=== PATIENT | female | born 1935 | race Hispanic/Latino ===

== ENCOUNTER 2016-10-29 14:13 | Inpatient (IN) | payer MEDICARE ==
[2016-10-29] MEDS ORDERED: Sodium Chloride 0.9% 1,000 ML IV STA ×3 (14:39→19:52)
[2016-10-29 15:19] LABS: ADD MANUAL DIFF? NO
[2016-10-29 15:23] LABS: BASO # 0.01 K/mm3 (0.0-2.0); BASO % 0.1 % (0.0-3.0); EOS # 0.1 (0.0-0.7); EOS % 0.4 % (1.5-5.0); GRAN # 9.36 (1.4-6.5); GRAN % 69.8 % (50.0-68.0); HEMATOCRIT 35.6 % (36.0-48.0); LYMPH % 22.5 % (22.0-35.0); MEAN CELL VOLUME 93.2 fL (80.0-105.0); MEAN CORPUSCULAR HEMOGLOBIN 30.4 pg (25.0-35.0); MEAN CORPUSCULAR HGB CONC 32.6 g/dl (31.0-37.0); MEAN PLATELET VOLUME 9.8 fl (7.0-11.0); MONO % 7.2 % (1.0-6.0); PLATELET COUNT 272 10^3/uL (120.0-450.0); RED CELL DISTRIBUTION WIDTH 13.8 % (11.5-14.5); WHITE BLOOD COUNT 13.4 10^3/ul (4.5-11.0)
--- NOTE | 2016-10-29 15:30 | RAD ---
HISTORY: Sepsis Patient COMPARISON: No prior. FINDINGS: LUNGS: Study somewhat limited- patient's body is rotated towards the right in the chin is obscuring the right lung apex No gross intra parenchymal pathology noted. Probable prominent calcification of the right coastal cartilage junction PLEURA: No significant pleural effusion identified, no pneumothorax apparent. CARDIOVASCULAR: Normal. OSSEOUS STRUCTURES: Old healed left rib fractures. Generalized osteopenia. Thoraco lumbar spondylosis VISUALIZED UPPER ABDOMEN: Normal. OTHER FINDINGS: Postsurgical changes IMPRESSION: No active disease.
[2016-10-29 15:32] LABS: INR 1.06 (0.93-1.08); PARTIAL THROMBOPLASTIN TIME 25.8 Seconds (23.7-30.8)
--- NOTE | 2016-10-29 15:32 | CT ---
PROCEDURE: CT HEAD WITHOUT CONTRAST. HISTORY: multiple falls; unsteady gait COMPARISON: None available. TECHNIQUE: Axial computed tomography images were obtained through the head/brain without intravenous contrast. Radiation dose: Total exam DLP = 688 mGy-cm. This CT exam was performed using one or more of the following dose reduction techniques: Automated exposure control, adjustment of the mA and/or kV according to patient size, and/or use of iterative reconstruction technique. FINDINGS: HEMORRHAGE: No intracranial hemorrhage. BRAIN: No mass effect or edema. Mild cerebral atrophy or mild chronic appearing microvascular ischemic changes. VENTRICLES: Ventricular size commensurate with the degree of atrophy and age. CALVARIUM: Unremarkable. PARANASAL SINUSES: Unremarkable as visualized. No significant inflammatory changes. MASTOID AIR CELLS: Unremarkable as visualized. No inflammatory changes. OTHER FINDINGS: None. IMPRESSION: No intracranial hemorrhage or mass effect. No calvarial fracture. Atrophy changes as noted above
--- NOTE | 2016-10-29 15:35 | ED PDOC ---
Arrival/HPI - General Chief Complaint: Female Genitourinary Time Seen by Provider: 10/29/16 14:23 Historian: Patient, Spouse, Family (son) - History of Present Illness Narrative History of Present Illness (Text): 10/29/16 14:25 A 81 year old female, whose past medical history includes CHF, parkinson's disease, Breast cancer (in remission), rectovaginal fistula and Recto-Urethral Fistula, presents to the emergency department for evaluation of a urinary infection. Patient's son reports the patient has been urinating more frequently for the past 3 weeks. He states the patient was started on Levaquin for a UTI. Son and note the patient appear to be more weak and confused than usually. states for the past three days the patient has had difficulty walking and has had fell multiple times. He notes last week the patient fell and hit her head against the wall, but she did not loss consciousness. Son says the patient has a lot of mucous in the throat and has not been eating much. The patient says her appetite is fine and she does not feel like she is weak. She denies any fever, chills, abdominal pain, chest pain, shortness of breath, headache or any other complaints at this time. Son mentions the patient had a echocardiogram on 10/24/2016, performed by Dr. Peoples. PMD: Dr. Finn/Sam Time/Duration: > week Symptom Onset: Sudden Symptom Course: Unchanged Quality: Other Activities at Onset: Rest Context: Home Past Medical History - Provider Review Nursing Documentation Reviewed: Yes - Infectious Disease Hx of Infectious Diseases: None - Cardiac Hx Cardiac Disorders: Yes Hx Congestive Heart Failure: Yes - Pulmonary Hx Respiratory Disorders: No - Neurological Hx Neurological Disorder: Yes Hx Parkinson's Disease: Yes (dx in 2000) - HEENT Hx HEENT Disorder: No - Renal Hx Renal Disorder: No - Endocrine/Metabolic Hx Endocrine Disorders: No - Hematological/Oncological Hx Blood Disorders: No - Integumentary Hx Dermatological Disorder: No - Musculoskeletal/Rheumatological Hx Musculoskeletal Disorders: No - Gastrointestinal Hx Gastrointestinal Disorders: No - Genitourinary/Gynecological Hx Genitourinary Disorders: No - Psychiatric Hx Psychophysiologic Disorder: No Hx Substance Use: No - Surgical History Hx Hysterectomy: Yes Other/Comment: breat cancer in the past. - Anesthesia Hx Anesthesia: Yes Hx Anesthesia Reactions: No Family/Social History - Physician Review Nursing Documentation Reviewed: Yes Family/Social History: Unknown Family HX Smoking Status: Never Smoked Hx Alcohol Use: No Hx Substance Use: No Allergies/Home Meds Allergies/Adverse Reactions: Allergies No Known Allergies Allergy (Verified 10/29/16 14:26) Home Medications: Home Meds Medication Instructions Recorded Confirmed Aspirin [[place] Aspirin] 81 mg PO DAILY 10/29/16 10/29/16 Calcium Carbonate [Tums] 500 mg PO PRN PRN 10/29/16 10/29/16 Calcium Carbonate/Vitamin D 1 tab PO DAILY 10/29/16 10/29/16 [Oscal-D 250 mg-125 Units Tab] Carvedilol [Coreg] 12.5 mg PO BID 10/29/16 10/29/16 Clonazepam [Clonazepam] 4 mg PO DAILY 10/29/16 10/29/16 Digoxin [Lanoxin] 0.125 mg PO DAILY 10/29/16 10/29/16 Ezetimibe/Simvastatin [Vytorin 1 each PO DAILY 10/29/16 10/29/16 10-80 mg Tablet] Isosorbide Mononitrate [Isosorbide 30 mg PO DAILY 10/29/16 10/29/16 Mononitrate ER] LORazepam [Ativan] 0.5 mg PO BID 10/29/16 10/29/16 Lactose-Reduced Food [Boost] 237 ml PO DAILY 10/29/16 10/29/16 Losartan [Cozaar] 50 mg PO BID 10/29/16 10/29/16 Multivit-Min/FA/Lycopen/Lutein 1 each PO DAILY 10/29/16 10/29/16 [Centrum Silver Tablet] Rivastigmine [Exelon Cap] 4.5 mg PO BID 10/29/16 10/29/16 Ropinirole HCl [Requip] 8 mg PO DAILY 10/29/16 10/29/16 Selenium [Selenium] 50 mcg PO DAILY 10/29/16 10/29/16 Torsemide [Demadex] 20 mg PO DAILY 10/29/16 10/29/16 Vitamin E [Vitamin E 400 Units Cap] 400 intlu PO DAILY 10/29/16 10/29/16 Review of Systems - Physician Review All systems were reviewed & negative as marked: Yes - Review of Systems Constitutional: Other (appears weak). absent: Fevers ENT: Other (congestion in throat) Respiratory: absent: SOB Cardiovascular: absent: Chest Pain Gastrointestinal: absent: Abdominal Pain, Nausea, Vomiting Genitourinary Female: Frequency Neurological: absent: Headache Physical Exam Vital Signs Reviewed: Yes Vital Signs Temp Pulse Resp BP Pulse Ox 10/29/16 16:35 64 18 122/56 L 98 10/29/16 15:38 69 18 124/58 L 98 10/29/16 15:02 97.1 F L 10/29/16 14:20 97.8 F 74 18 126/54 L 98 Temperature: Afebrile Blood Pressure: Hypotensive Pulse: Regular Respiratory Rate: Normal Appearance: Positive for: Well-Appearing, Non-Toxic, Comfortable, Other ( patient has baseline tremors) Pain Distress: None Mental Status: Positive for: Alert and Oriented X 3 - Systems Exam Head: Present: Atraumatic, Normocephalic Pupils: Present: PERRL Extroacular Muscles: Present: EOMI Conjunctiva: Present: Normal Mouth: Present: Moist Mucous Membranes Neck: Present: Normal Range of Motion Respiratory/Chest: Present: Clear to Auscultation, Good Air Exchange. No: Respiratory Distress, Accessory Muscle Use Cardiovascular: Present: Regular Rate and Rhythm, Normal S1, S2. No: Murmurs Abdomen: Present: Normal Bowel Sounds. No: Tenderness, Distention, Peritoneal Signs Back: Present: Normal Inspection Upper Extremity: Present: Normal Inspection. No: Cyanosis, Edema Lower Extremity: Present: Normal Inspection. No: Edema Neurological: Present: GCS=15, CN II-XII Intact, Speech Normal Skin: Present: Warm, Dry, Normal Color. No: Rashes Psychiatric: Present: Alert, Oriented x 3, Normal Insight, Normal Concentration Medical Decision Making ED Course and Treatment: 10/29/16 14:25 Impression: A 81 year old female with urinary frequency, weakness and increase confusion. Differential Diagnosis include but are not limited to: UTI vs. worsening parkinson's vs intra cranialabnormalities vs. electrolyte abnormality vs ACS Plan: -- EKG -- Head CT -- Chest X-ray -- Labs -- Urinalysis -- IV Fluids -- Reassess and disposition Progress Notes: EKG: Ordered, reviewed, and independently interpreted the EKG. Rate : 70 BPM Rhythm : NSR Interpretation : first degree AV block, left axis deviation, left bundle branch block, no other ST/T changes Comparison : No previous EKG for comparison. 10/29/16 15:[address]: Creator : Faustina Barnett V. COMPARISON: None available. FINDINGS: HEMORRHAGE: No intracranial hemorrhage. BRAIN: No mass effect or edema. Mild cerebral atrophy or mild chronic appearing microvascular ischemic changes. VENTRICLES: Ventricular size commensurate with the degree of atrophy and age. CALVARIUM: Unremarkable. PARANASAL SINUSES: Unremarkable as visualized. No significant inflammatory changes. MASTOID AIR CELLS: Unremarkable as visualized. No inflammatory changes. OTHER FINDINGS: None. IMPRESSION: No intracranial hemorrhage or mass effect. No calvarial fracture. Atrophy changes as noted above Chest X-ray: Creator : Faustina Barnett V. COMPARISON: No prior. FINDINGS: LUNGS: Study somewhat limited- patient's body is rotated towards the right in the chin is obscuring the right lung apex No gross intra parenchymal pathology noted. Probable prominent calcification of the right coastal cartilage junction PLEURA: No significant pleural effusion identified, no pneumothorax apparent. CARDIOVASCULAR: Normal. OSSEOUS STRUCTURES: Old healed left rib fractures. Generalized osteopenia. Thoraco lumbar spondylosis VISUALIZED UPPER ABDOMEN: Normal. OTHER FINDINGS: Postsurgical changes IMPRESSION: No active disease. 10/29/16 18:31 Patient with noted history is hemodynamically stable with unremarkable vitals. EKG shows LBBB but no old - patient with no cardiopulmonary complaints and negative CE. Labs show severe prerenal azotemia; brain CT and CXR unremarkable - will need to be admitted for IVF; urine shows UTI but patient with fistula - started on iv abx. Case discussed with Dr. Vargas. - Lab Interpretations Lab Results: 10/29/16 15:00 10/29/16 15:00 Lab Results 10/29/16 17:00: Urine Color Green, Urine Appearance Cloudy, Urine pH 6.5, Ur Specific [place] 1.010, Urine Protein Negative, Urine Glucose (UA) Negative, Urine Ketones Negative, Urine Blood Large H, Urine Nitrate Negative, Urine Bilirubin Negative, Urine Urobilinogen 0.2, Ur Leukocyte Esterase Large H, Urine RBC 25 - 30, Urine WBC 10 - 15, Ur Epithelial Cells 0 - 2, Amorphous Sediment Many, Urine Bacteria Large, Coarse Granular Casts Agricultural Systems Specialist 10/29/16 15:00: WBC 13.4 H, RBC 3.82, Hgb 11.6 L, Hct 35.6 L, MCV 93.2, MCH 30.4 , MCHC 32.6, RDW 13.8, Plt Count 272, MPV 9.8, Gran % 69.8 H, Lymph % (Auto) 22.5, [place] % (Auto) 7.2 H, Eos % (Auto) 0.4 L, Baso % (Auto) 0.1, Gran # 9.36 H , Lymph # 3.0, [place] # 1.0 H, Eos # 0.1, Baso # 0.01, PT 11.5, INR 1.06, APTT 25.8, pO2 34, VBG pH 7.35, VBG pCO2 62.0 H, VBG HCO3 34.2 H, VBG Total CO2 36.1 H, VBG O2 Sat (Calc) 59.2, VBG Base Excess 6.8 H, VBG Potassium 4.6, Glucose 94 , Lactate 0.9, FiO2 21.0, Sodium 141.0, Potassium 4.5, Chloride 102.0, Carbon Dioxide 33, Anion Gap 17, BUN 123 H*, Creatinine 2.3 H, Est GFR ( Amer) 25, Est GFR (Non-Af Amer) 20, Random Glucose 97, Calcium 10.5, Phosphorus 4.6 H , Magnesium 2.7 H, Total Bilirubin 0.7, AST 50 H, ALT 44, Alkaline Phosphatase 59, Lactate Dehydrogenase 457, Total Creatine Kinase 56, Troponin I 0.04, NT-Pro -B Natriuret Pep 1040 H, Total Protein 8.4 H, Albumin 4.0, Globulin 4.4, Albumin /Globulin Ratio 0.9 L, Lipase 347 H, Venous Blood Potassium 4.6 I have reviewed the lab results: Yes - RAD Interpretation Radiology Orders: 10/29/16 14:35 CHEST PORTABLE [RAD] Stat 10/29/16 14:40 Brain [HEAD W/O CONTRAST] [CT] Stat - Medication Orders Current Medication Orders: Sodium Chloride (Sodium Chloride 0.9%) 1,000 mls @ 100 mls/hr IV .Q10H STA Stop: 10/30/16 00:38 Last Admin: 10/29/16 15:08 Dose: 100 MLS/HR eMAR Start Stop Document 10/29/16 15:08 EQ (Rec: 10/29/16 15:08 EQ [facility] [id number]) Intravenous Solution Start Date 10/29/16 Start Time 15:08 Sodium Chloride (Sodium Chloride 0.9%) 1,000 mls @ 999 mls/hr IV .Q1H1M STA Stop: 10/29/16 19:29 Ceftriaxone Sodium (Rocephin 1 Gram Ivpb) 100 mls @ 200 mls/hr IV ONCE STA PRN Reason: Protocol Stop: 10/29/16 18:58 - Scribe Statement The provider has reviewed the documentation as recorded by the Scribe Isabella Panchal Provider Scribe Attestation: All medical record entries made by the Scribe were at my direction and personally dictated by me. I have reviewed the chart and agree that the record accurately reflects my personal performance of the history, physical exam, medical decision making, and the department course for this patient. I have also personally directed, reviewed, and agree with the discharge instructions and disposition. . Disposition/Present on Arrival - Present on Arrival Any Indicators Present on Arrival: No History of DVT/PE: No History of Uncontrolled Diabetes: No Urinary Catheter: No History of Decub. Ulcer: No History Surgical Site Infection Following: None - Disposition Have Diagnosis and Disposition been Completed?: Yes Diagnosis: Prerenal azotemia, Altered mental status, Urinary tract infection Disposition: HOSPITALIZED Disposition Time: 17:05 Patient Plan: Admission Condition: FAIR
[2016-10-29 15:39] LABS: VENOUS BLOOD GAS BASE EXCESS 6.8 mmol/L (0.0-2.0); VENOUS BLOOD PH 7.35 (7.32-7.43)
[2016-10-29 15:44] LABS: ALB/GLOB RATIO 0.9 (1.1-1.8); BILIRUBIN,TOTAL 0.7 mg/dL (0.2-1.3); CALCIUM 10.5 mg/dL (8.4-10.5); MAGNESIUM 2.7 mg/dL (1.7-2.2); PHOSPHOROUS 4.6 mg/dL (2.5-4.5); POTASSIUM 4.5 mmol/L (3.6-5.0); TOTAL PROTEIN 8.4 g/dL (5.8-8.3)
[2016-10-29 15:56] LABS: TROPONIN I 0.04 ng/mL
[2016-10-29 17:58] LABS: PH,URINE 6.5 (4.7-8.0); URINE BILIRUBIN NEGATIVE (NEGATIVE); URINE BLOOD LARGE (NEGATIVE); URINE GLUCOSE (UA) NEGATIVE (NEGATIVE); URINE KETONE NEGATIVE (NEGATIVE); URINE LEUKOCYTE ESTERASE LARGE Leu/uL (NEGATIVE); URINE PROTEIN NEGATIVE mg/dL (<30 mg/dL); URINE UROBILINOGEN 0.2 E.U./dL (<1 E.U./dL)
[2016-10-29 17:59] LABS: URINE APPEARANCE CLOUDY (CLEAR); URINE COLOR GREEN (YELLOW)
[2016-10-29 18:28] LABS: URINE AMORPHOUS SEDIMENT MANY; URINE BACTERIA LARGE (NEG); URINE EPITHELIAL CELLS 0 - 2 /hpf (0-5); URINE RBC 25 - 30 /hpf (0-2)
[2016-10-29] MEDS ORDERED: cefTRIAXone 1 gm 100 ML IV STA (18:29)
[2016-10-29] MEDS ORDERED: Cefepime 1gm in NS 100ml 100 ML IVPB ONE (20:15)
[2016-10-29] MEDS ORDERED: Iohexol 240 (50 ml) ONE ×2 (20:26→21:03)
[2016-10-29 20:30] LABS: FREE T4 1.58 ng/dL (0.78-2.19); T4 8.7 ug/dL (5.5-11.0)
[2016-10-29 20:43] LABS: THYROID STIMULATING HORMONE 1.6 mIU/mL (0.46-4.68)
[2016-10-29] MEDS ORDERED: Cefepime 1gm in NS 100ml 100 ML IVPB SCH ×2 (22:00→23:15)
[2016-10-29] MEDS ORDERED: Sodium Chloride 0.9% 1,000 ML IV SCH (22:00)
[2016-10-29] MEDS: Cefepime 1gm in NS 100ml 100 ML IVPB SCH (23:44)
--- NOTE | 2016-10-29 23:53 | HP ---
HISTORY OF PRESENT ILLNESS: The patient is an 81-year-old homebound patient of Dr. Rene Finn who was brought to the Emergency Room today with the patient's son and the . The patient was brought to the Emergency Room by [facility] ambulance. According to the patient's son and the [facility] nd, the patient has been having some symptoms of urinary tract infection for which the patient has be en put on Levaquin for 2 months as per the patient's family. According to the patient's son, the pat ient has been weak. The patient has been falling and has been confused. The patient was advised by the PMD to come to the Emergency Room for evaluation. According to the ER physician evaluation note, the patient evaluation of urinary tract infection. The patient, according to the son, has been urin ating more frequently and also having frequent bowel movements. The patient was found also reported to be weak and confused, which has been worsening since the last 2 weeks, but more worse in the last 3 days. The patient fell a couple of times and difficulty walking and also the patient hit her head against the wall, but no loss of consciousness. Also, the patient is having a lot of mucus and saliv a in the mouth. CODE STATUS: Full code. LIVING WILL AND ADVANCED DIRECTIVE: None. ALLERGIES: None. HEIGHT: 4 feet 10. WEIGHT: 110. BMI: 23. ALLERGIES: None. HOME MEDICATIONS: Os-Anibal, vitamin D daily, selenium 50 mcg daily, Boost daily, calcium carbonate, Tu ms 500 mg p.r.n., vitamin E 400 units daily, Centrum Silver 1 tablet daily, Ativan 0.5 mg twice a day , Vytorin 10-80 daily, Klonopin 4 mg daily, Ativan 0.5 mg twice a day, Klonopin 2-4 mg daily, D igoxin 0.125 daily, aspirin 81 mg daily, Demadex 20 mg daily, Imdur 30 mg daily, Imdur 30 mg da teodoro, Requip 8 mg daily, Cozaar 50 mg twice a day, Coreg 12.5 mg twice a day, Exelon 4.5 mg twice a da y. SOCIAL HISTORY: Negative for smoking, negative for alcohol. Negative for drug use. REVIEW OF SYSTEMS: A 13-system review is positive as dictated above. PAST MEDICAL AND SURGICAL HISTORY: History of syncope, history of left bundle branch block, history of left axis deviation, history of left breast carcinoma, left mastectomy, history of dementia, hist ory of congestive heart failure, history of questionable congestive heart failure, history of hyperte nsion, history of angina, history of anxiety disorder, history of dyslipidemia, history of colovesicu lar and colovaginal fistula, history of left mastectomy, history of anemia, history of diverticulosis , history of pneumonia, history of dyslipidemia, history of diverticulosis, diverticulitis, history o f osteopenia, osteoporosis, history of Parkinson's disease, history of anxiety disorder, history of d epression, history of questionable aspiration pneumonia, history of chronic kidney disease stage IV, history of colovesicular vesicular and colovaginal fistula, history of right bundle branch block, his tory of left anterior hemiblock, history of fecal retention, history of aspiration pneumonia, history of leukocytosis, history of sepsis, history of Enterococcus faecalis urinary tract infection, histor y of mild hyperkalemia, history of digoxin toxicity, history of Enterococcus faecalis urinary tract i nfection with pyuria, hematuria, proteinuria, bacteriuria, history of syncope, history of bradyarrhyt hmias with high grade AV block versus complete heart block and asystole for more than 6 seconds proba colleen secondary to Coreg and digoxin, history of left anterior hemiblock, history of left bundle branch block versus intraventricular conduction delay, history of multiple cardiac pauses, history of asymp tomatic asystole, history of left ventricular ejection fraction of 43%, history of moderate mitral re gurgitation, history of moderate aortic regurgitation, history of aortic sclerosis, history of non-ST elevation myocardial infarction, history of Parkinson's disease, history of dementia, history of que stionable nonsustained ventricular tachycardia, history of hypertriglyceridemia, history of hypertens ion, 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 The patient's past medical history is significant for normocytic ane ken, history of hematuria and pyuria and bacteriuria, history of digoxin toxicity, history of dilated cardiomyopathy with left ventricular ejection fraction of 33%, history of left ventricular ejection fraction of 33%, history of mitral regurgitation, history of questionable dilated cardiomyopathy, his tory of MUGA scan done in 01/2014 showing ejection fraction of 33%. The patient is seen in the Emergency Room in bed #18 and then ultrasound. The patient's son and her are at bedside. PHYSICAL EXAMINATION: VITAL SIGNS: T-max 97.8. Pulse is 62, 69, 74. Blood pressure is 126/54, 122/58, 124/60. Respirati on 18-20. O2 sat 98%. HEAD: Normocephalic, atraumatic. HEENT: Shows pinkish, pale conjunctivae, dry oral mucosa. Tongue is midline. NECK: Questionable soft carotid bruit. CHEST: Positive kyphosis of the thoracic spine noted. Positive left mastectomy. CARDIOVASCULAR: Shows S1, S2, regular rhythm with systolic murmur in the right second intercostal sp felisa, left second intercostal space, left sternal border. ABDOMEN: Soft, protuberant, healed surgical scar of hysterectomy. GENITALIA: Female. RECTAL: Deferred. EXTREMITIES: Shows no pitting edema, no calf tenderness, no Homans' sign. NEUROLOGIC: The patient is arousable, awake, responsive. The patient is able to communicate. The p atient is able to move upper and lower extremity without assistance. Gait examination is deferred. LYMPHATICS: Negative. PSYCHIATRIC: Positive for anxiety, dementia. MUSCULOSKELETAL: Shows a body mass index of 23. DIAGNOSTICS: 1. WBC 13.4, hemoglobin/hematocrit 11.6 and 35.6, platelet 272, granulocytes 70%. PT, PTT is normal and lactic acid 0.9. Sodium 142, potassium 4.5, chloride 97, CO2 of 33, anion gap 17, BUN 123, crea tinine 2.3, GFR 25, glucose 97. Lactic acid 1.0, uric acid 10.1, phosphorus 4.6, magnesium 2.7, AST 50. BNP 1040. Lipase 347. TSH 1.6. T4 of 8.7. Urine: pH 6.5, specific gravity 1.010, large bloo d, large leukocyte esterase, WBC 10-15, many large bacteria. 2. Chest x-ray was noted, which shows left rib fractures, osteopenia, thoracolumbar spondylosis, lef t mastectomy. Chronic lung marking noted. 3. CAT scan of the head was done because of confusion, which shows cerebral cortical atrophy and kenyatta rovascular ischemic disease of the brain. The patient had a bladder and renal ultrasound done, preli minary bladder and renal ultrasound shows pre-void volume almost 250 mL, post-void empty. No uretera l jets noted. There is questionable echogenic mass seen. 4. Renal ultrasound: Official report pending. 5. CAT scan of the abdomen and pelvis was done. The patient's CAT scan of the abdomen and pelvis do ne, results pending. EKG done in the Emergency Room shows sinus rhythm, left axis deviation, left bu ndle branch block and ST-T changes. The patient seen by Dr. Amezquita. The patient was treated with IV fluid, Rocephin 1 gram, and the patie nt was advised to be admitted. IMPRESSION AND PLAN: 1. Altered mental status, etiology undetermined. 2. Acute renal failure and acute kidney injury and prerenal kidney injury. 3. Questionable and possible urinary tract infection. 4. Recurrent fall and gait dysfunction. 5. History of dementia. 6. Questionable swallowing and feeding dysfunction. 7. Leukocytosis with granulocytosis. 8. Normocytic anemia. 9. Hyperuricemia. 10. Hyperphosphatemia. 11. Transaminitis. 12. Elevated BNP with history of congestive heart failure. 13. Hematuria, pyuria, bacteriuria. 14. Left bundle branch block and left axis deviation. 15. Generalized osteopenia and thoracolumbar spondylosis with old healed left rib fracture. 16. Status post mastectomy for left breast carcinoma. 17. Gait dysfunction. 18. Recurrent falls. 19. 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 20. Questionable cystitis with thickened urinary bladder wall. 21. Questionable echogenic urinary bladder mass. 22. History of dementia. 23. History of hypovitaminosis D, history of anxiety, history of dementia, history of congestive hea rt failure, history of angina, history of dementia. 24. History of colovesicular and colovaginal fistula. PLAN: At this time, the patient will be admitted to [facility]. The patient's home medi cations will be ordered selectively due to the patient's medical condition and diagnostic data. The patient has been ordered CT and labs. Blood and urine cultures ordered. The patient's consult ation has been ordered. Gastroenterology consultation has been ordered. The patient has been ordere d GI consultation. The patient has been ordered for evaluation of colovesicular and colovaginal fist michelet. Infectious disease consultation ordered. Nephrology consultation ordered. Surgical consultati on ordered. Procalcitonin level ordered. Current medications, the patient is resumed selenium 50 mcg daily, Ativan 0.5 mg twice a day, Ecotrin 81 mg daily, Exelon capsule 4.5 mg twice a day, GI and DVT prophylaxis started, Imdur 30 mg daily, c efepime 500 mg IV q. 12, Protonix 40 mg daily, Requip 8 mg p.o. daily, IV fluid has been started at 8 0 mL an hour. The patient received 3 boluses of IV fluid normal saline. Allopurinol 100 mg daily or dered. The patient has been ordered renal ultrasound and bladder ultrasound. CT abdomen and pelvis was ordered. Echo with Doppler ordered for evaluation of history of congestive heart failure. Renal diet ordered. Out of bed to chair. Ramirez catheter inserted in the Emergency Room. ADRIANO stockings a nd SCD ordered. The patient has been ordered for swallowing evaluation. At present, the patient was seen in the Emergency Room and ultrasound area. The patient's further ma nagement will be dependent upon the patient's clinical condition, hemodynamic status and as per the p atient response to therapeutic intervention, as per the patient's diagnostic test results and as per recommendation by all the physicians involved in the care of the patient. The patient's condition, d iagnosis, need for hospitalization, need for further diagnostic therapeutic intervention, need for ev aluation and consultation with multiple specialties was discussed and explained to the patient's son and the at length in layman's language. All questions and concerns answered to their satisfa ction. Dictated, electronically signed, not read. Rigo Vargas MD cc: [id number] TT: 10/29/2016 23:52:32 anali
--- NOTE | 2016-10-30 05:15 | CP.PCM.CON ---
History of Present Illness - History of Present Illness History of Present Illness: Surgery for Dr. Alfredo A 81 year old female, whose past medical history includes rectovaginal fistula and Recto-Urethral Fistula, diverticulitits, diverticulosis, CHF, parkinson's disease, Breast cancer (in remission), PSH of hysterectomy and L mastectomy presents to ED with urinary frequency and AMS. History and ROS from family. Pt was found to have urinary infection. Per family pt was diagnosed with rectovaginal and rectovesicle fistula in 2000 by [employer] who still comes to [place]. Patient's son reports the patient has been urinating more frequently for the past 3 weeks. He states the patient was started on Levaquin for a UTI prescribed by her PMD last week and complete the 7 days dose yesterday. Family notes the patient appear to be more weak and confused than usually states for the past three days the patient has had difficulty walking and has had fell multiple times. He notes last week the patient fell and hit her head against the wall, but she did not loss consciousness. Son says the patient has a lot of mucous in the throat and has not been eating much. The patient says her appetite is fine and she does not feel like she is weak. She denies any hematuria, N/V/D/ vaginal bleeding, fever, chills, abdominal pain, chest pain, shortness of breath, headache or any other complaints at this time. Son mentions the patient had a echocardiogram on 10/24/2016. Ramirez was placed in the ED. Ramirze appears to have fecal urine. Review of Systems - Review of Systems Systems not reviewed;Unavailable: Altered Mental Status Review of Systems: See HPI Past Patient History - Infectious Disease Hx of Infectious Diseases: None - Past Social History Smoking Status: Never Smoked - CARDIAC Hx Cardiac Disorders: Yes Hx Congestive Heart Failure: Yes - PULMONARY Hx Respiratory Disorders: No - NEUROLOGICAL Hx Neurological Disorder: Yes Hx Parkinson's Disease: Yes (dx in 2000) - HEENT Hx HEENT Problems: No - RENAL Hx Chronic Kidney Disease: No - ENDOCRINE/METABOLIC Hx Endocrine Disorders: No - HEMATOLOGICAL/ONCOLOGICAL Hx Blood Disorders: No - INTEGUMENTARY Hx Dermatological Problems: No - MUSCULOSKELETAL/RHEUMATOLOGICAL Hx Musculoskeletal Disorders: No - GASTROINTESTINAL Hx Gastrointestinal Disorders: No - GENITOURINARY/GYNECOLOGICAL Hx Genitourinary Disorders: No - PSYCHIATRIC Hx Psychophysiologic Disorder: No Hx Substance Use: No - SURGICAL HISTORY Hx Hysterectomy: Yes Other/Comment: breat cancer in the past. - ANESTHESIA Hx Anesthesia: Yes Hx Anesthesia Reactions: No Meds Allergies/Adverse Reactions: Allergies Allergy/AdvReac Type Severity Reaction Status Date / Time No Known Allergies Allergy Verified 10/29/16 14:26 - Medications Medications: Current Medications Allopurinol (Zyloprim) 100 mg PO DAILY [facility] Aspirin (Ecotrin) 81 mg PO DAILY [facility] Heparin Sodium (Porcine) (Heparin) 5,000 units SC Q8H BETHEL PRN Reason: Protocol Last Admin: 10/30/16 04:52 Dose: 5,000 units Sodium Chloride (Sodium Chloride 0.9%) 1,000 mls @ 80 mls/hr IV .[id number] BETHEL Stop: 11/01/16 12:29 Last Admin: 10/29/16 23:45 Dose: 80 mls/hr Cefepime HCl (Maxipime 1gm) 100 mls @ 100 mls/hr IVPB Q12H BETHEL PRN Reason: Protocol Last Admin: 10/29/16 23:44 Dose: 100 mls/hr Isosorbide Mononitrate (Imdur) 30 mg PO DAILY [facility] Lorazepam (Ativan) 0.5 mg PO BID BETHEL PRN Reason: Protocol Non-Formulary Medication (Selenium [Selenium]) 50 mcg PO DAILY [facility] Pantoprazole Sodium (Protonix Ec Tab) 40 mg PO 0630 [facility] Rivastigmine (Exelon Cap) 4.5 mg PO BID [facility] Ropinirole HCl (Requip) 8 mg PO DAILY [facility] Physical Exam - Constitutional Appears: No Acute Distress, Cachectic, Chronically Ill - Head Exam Head Exam: ATRAUMATIC, NORMAL INSPECTION, NORMOCEPHALIC - Eye Exam Eye Exam: EOMI, Normal appearance, PERRL Pupil Exam: NORMAL ACCOMODATION, PERRL - ENT Exam ENT Exam: Mucous Membranes Moist, Normal Exam - Neck Exam Neck exam: Positive for: Normal Inspection - Respiratory Exam Respiratory Exam: Clear to Auscultation Bilateral, NORMAL BREATHING PATTERN. absent: Accessory Muscle Use, Respiratory Distress - Cardiovascular Exam Cardiovascular Exam: REGULAR RHYTHM, +S1, +S2 - GI/Abdominal Exam GI & Abdominal Exam: Normal Bowel Sounds, Soft. absent: Distended, Firm, Guarding, Hernia, Mass, Tenderness - Rectal Exam Additional comments: Stool , no sphincter tone changes. No mass - Exam Exam: NORMAL INSPECTION. absent: Uretheral Discharge, Bladder Distension External exam: absent: Erythema, Lesions, Swelling Additional comments: feces on vaginal exam. Ramirez in place: brown urine - Extremities Exam Extremities exam: Positive for: normal inspection. Negative for: pedal edema - Back Exam Back exam: NORMAL INSPECTION - Neurological Exam Neurological exam: Altered, CN II-XII Intact, Reflexes Normal - Psychiatric Exam Psychiatric exam: Normal Mood - Skin Skin Exam: Dry, Intact, Normal Color, Warm Results - Vital Signs Recent Vital Signs: Last Vital Signs Temp 97.9 F 10/29/16 21:43 Pulse 75 10/29/16 21:43 Resp 20 10/29/16 21:43 BP 102/50 L 10/29/16 21:43 Pulse Ox 98 10/29/16 20:54 - Labs Result Diagrams: 10/29/16 15:00 10/29/16 15:00 Labs: Laboratory Results - last 24 hr 10/29/16 20:41 Lactic Acid 1.0 Assessment & Plan - Assessment and Plan (Free Text) Assessment: Rectovaginal , rectovesicle fistula with UTI Mild leukocytosis: 13.4 UA: LE + -F/U CT abd, US reads -Recommend [employer] consult -Monitor urine output and bowel function -No emergent surgical intervention a this time: Pt is a poor surgical candidate due to her age and multiple comobidity -Cont ABX -Cont IVF Will DW Dr. Alfredo
[2016-10-30] MEDS: Pantoprazole 40 mg EC Tab PO SCH (05:54)
[2016-10-30] MEDS ORDERED: Barium Sulfate Susp 2.1% w/v, 2.0% w/w 450 mL Bottle PO ONE (06:50)
[2016-10-30 07:51] LABS: ADD MANUAL DIFF? NO
[2016-10-30 07:57] LABS: BASO # 0.01 K/mm3 (0.0-2.0); BASO % 0.1 % (0.0-3.0); EOS # 0.1 (0.0-0.7); EOS % 1.2 % (1.5-5.0); GRAN # 6.07 (1.4-6.5); GRAN % 63.1 % (50.0-68.0); HEMATOCRIT 33.6 % (36.0-48.0); LYMPH # 2.7 (1.2-3.4); LYMPH % 27.7 % (22.0-35.0); MEAN CELL VOLUME 92.6 fL (80.0-105.0); MEAN CORPUSCULAR HEMOGLOBIN 29.8 pg (25.0-35.0); MEAN CORPUSCULAR HGB CONC 32.1 g/dl (31.0-37.0); MEAN PLATELET VOLUME 9.5 fl (7.0-11.0); MONO # 0.8 (0.1-0.6); MONO % 7.9 % (1.0-6.0); PLATELET COUNT 253 10^3/uL (120.0-450.0); RED CELL DISTRIBUTION WIDTH 13.7 % (11.5-14.5); WHITE BLOOD COUNT 9.6 10^3/ul (4.5-11.0)
[2016-10-30 08:12] LABS: ALB/GLOB RATIO 0.9 (1.1-1.8); BILIRUBIN,DIRECT 0.5 mg/dL (0.0-0.4); BILIRUBIN,TOTAL 0.5 mg/dL (0.2-1.3); CALCIUM 9.2 mg/dL (8.4-10.5); MAGNESIUM 2.3 mg/dL (1.7-2.2); POTASSIUM 4.4 mmol/L (3.6-5.0); TOTAL PROTEIN 7.4 g/dL (5.8-8.3)
--- NOTE | 2016-10-30 08:22 | CP.PCM.PCO ---
Physician Communication Note - Physician Communication Note Physician Communication Note: Dehydration/AMS/UTI/Sepsis--? Colostomy to be considered
--- NOTE | 2016-10-30 08:40 | CT ---
PROCEDURE: CT Abdomen and Pelvis without intravenous contrast HISTORY: rectoVESICAL FISTULA/ARF COMPARISON: None. TECHNIQUE: Without contrast.. Contrast Dose: 0 Radiation dose: Total exam DLP = 433.98 mGy-cm. This CT exam was performed using one or more of the following dose reduction techniques: Automated exposure control, adjustment of the mA and/or kV according to patient size, and/or use of iterative reconstruction technique. FINDINGS: LOWER THORAX: Minimal posterior pleural thickening at left lung base. No consolidation. Cardiomegaly. LIVER: Unremarkable. No gross lesion or ductal dilatation. GALLBLADDER AND BILE DUCTS: Unremarkable. PANCREAS: Unremarkable. No gross lesion or ductal dilatation. SPLEEN: Unremarkable. ADRENALS: Unremarkable. No mass. KIDNEYS AND URETERS: Unremarkable. No hydronephrosis. No solid mass. VASCULATURE: Unremarkable. No aortic aneurysm. BOWEL: Sigmoid diverticulosis. No evidence of diverticulitis. There are evidence of rectovesical fistula. There is a small amount of high attenuation material seen dependently within the urinary bladder, uncertain significance. No evidence of recent intravenous contrast administration. Questionable fistula demonstrated from sigmoid colon to posterior bladder dome on series 602, image 90z this finding is of limited significance in the absence of bladder and colonic distention. Nevertheless, this raises the suspicion of fistula. APPENDIX: Not positively identified. PERITONEUM: Unremarkable. No free fluid. No free air. LYMPH NODES: Unremarkable. No enlarged lymph nodes. BLADDER: Poorly distended. Ramirez catheter balloon. Small amount of high attenuation material dependent within the urinary bladder as described above. This could be the result of a small fistulous tract or recent contrast administration at an outside facility though this seems unlikely. REPRODUCTIVE: Status post hysterectomy BONES: No acute fracture. OTHER FINDINGS: None. IMPRESSION: Questionable demonstration of rectovesical fistula. Limited evaluation for this purpose. Consider evaluation with cystogram or cystoscopy. Ramirez catheter balloon. Status post hysterectomy. Sigmoid diverticulosis without evidence of diverticulitis.
--- NOTE | 2016-10-30 08:59 | US ---
HISTORY: ARF COMPARISON: None. TECHNIQUE: Sonographic evaluation of the retroperitoneum. FINDINGS: RIGHT KIDNEY:: Measures 11.4 x 5cm. Normal echogenicity. No calculus, mass, or hydronephrosis. LEFT KIDNEY:: Measures 10.6 x 3.8cm. Normal echogenicity. No calculus, mass, or hydronephrosis. AORTA:: No aneurysmal dilatation. IVC:: Unremarkable. BLADDER:: Reported separately. OTHER FINDINGS: None . IMPRESSION: Unremarkable upper tracts.
--- NOTE | 2016-10-30 09:09 | US ---
PROCEDURE: Ultrasound urinary bladder HISTORY: Rectovesical FISTULA/ARF COMPARISON: October 30, 2016. CT abdomen and pelvis. TECHNIQUE: Standard protocol for this study/examination. FINDINGS: Urinary bladder assessment: Prevoid volume: 252.8 ml Postvoid residual: 0.0 ml Intrinsic, mural, perivesical abnormalities: Dependent echogenic material/ debris composite measurements 2.9 by 1.6 x 3.2 cm. Overall appearance in comparison with concurrent CT suggests hemorrhagic products/clot /debris rather than luminal mass. There appears to be a tissue plane with the urinary bladder wall. Indwelling Ramirez catheter identified. Ureteral jets: Not identified. IMPRESSION: Intraluminal debris without evidence of bladder wall mass.
[2016-10-30] MEDS ORDERED: Sodium Chloride 0.45% 1,000 ML IV SCH ×2 (09:45→14:30)
--- NOTE | 2016-10-30 10:29 | CON ---
DATE: 10/30/2016 REQUESTING PHYSICIAN: Dr. Vargas. REASON FOR CONSULT: I have been asked to see this 81-year-old female with known chronic colovesical fistula for many years, recent increase in urinary frequency associated with urgency, treated as an o utpatient with Levaquin for last several months, who is admitted to the hospital with weakness, frequ ent falls, and confusion. She denies any fevers or chills. The patient also apparently has had exce ss mucus in her mouth. There is no history of dysphagia or signs of aspiration. The patient does chicas ve a history of dementia. PAST MEDICAL HISTORY: Notable for chronic colovesical fistula, breast cancer, dementia, congestive h eart failure, mitral regurgitation. SOCIAL HISTORY: There is no history of cigarette smoking or alcohol abuse. She lives at home with h er family. A 14-point review of systems is notable for weakness, urinary frequency, dysuria, confusion, frequent falls. PHYSICAL EXAMINATION: Elderly female, pleasant, lying in bed in no acute distress. VITAL SIGNS: Reveal temperature of 98, blood pressure 137/45, heart rate 66. HENT: Reveals sclerae to be white, conjunctivae pink. Oral mucosa is moist. NECK: Supple. CHEST: Lungs are clear. HEART EXAMINATION: Reveals regular rate and rhythm. ABDOMEN: Soft, nontender. EXTREMITIES: Show no edema. LABORATORY DATA: Reveal white blood cell count 9.6, hemoglobin 10.8. Chemistries reveal sodium of 1 49, BUN 95, creatinine 1.7. Serum albumin is 3.5. AST, ALT, alk phos are all normal. BNP is 1040. IMPRESSION: An 81-year-old female with weakness, frequent falls at home. CT scan of the abdomen and pelvis, as well as bladder ultrasound are consistent with a colovesical fistula. Her urine shows fe kiley sediment in the Ramirez bag. RECOMMENDATIONS: Surgical evaluation for diverting colostomy. The patient is at high risk for surgi kiley procedure. I have discussed this case with Dr. Alfredo. Will discuss the procedure with the dania hanson. Timothy Julien MD cc: [id number] TT: 10/30/2016 10:28:44 Confirmation # [id number] Dictation # [id number] jn
[2016-10-30] MEDS: Cefepime 1gm in NS 100ml 100 ML IVPB SCH ×2 (10:30→23:46)
--- NOTE | 2016-10-30 10:54 | PN ---
DATE: 10/30/2016 The patient is seen lying in the bed in room 572, bed 1. The patient's and son at bedside. The patient is awake, responsive, alert. The patient was incontinent of stool, and also stool was noted in the Ramirez. PHYSICAL EXAMINATION: VITAL SIGNS: T-max is 98, pulse 66-54, blood pressure 137/45, 124/60, 121/58, respirations 18, O2 sat 95%. HEAD: Normocephalic, atraumatic. HEENT: Shows pinkish, pale conjunctivae. Anicteric sclerae. Dry oral mucosa. NECK: Questionable soft carotid bruit. CHEST: Kyphosis. LUNGS: Show decreased breath sounds at the left base. CARDIOVASCULAR: Shows S1, S2, regular rhythm, positive systolic murmur, left sternal border, right second intercostal space, left second intercostal space. ABDOMEN: Soft. Positive bowel sounds. Positive Ramirez catheter. EXTREMITIES: Shows trace swelling of the lower extremities, but no pitting edema, no calf tenderness, no Homans' sign. NEUROLOGIC: The patient is alert, awake, responsive, is lying in the bed. The patient appears older than the stated age. PSYCHIATRIC: Positive history of dementia, anxiety. DIAGNOSTICS: WBC count is down to 9.6 from 13.4, hemoglobin and hematocrit 10.8 and 33.6, platelets 253, granulocyte 63% segs. Sodium has gone up to 149, potassium 4.4, chloride 108, CO2 of 27, anion gap 18. BUN is down to 95 from 123. Creatinine is down to 1.7 from 2.3. GFR is 35. Uric acid 10. Lactic acid is 1.0. Phosphorous. Magnesium was 2.3. LFTs are normal. Cholesterol is 78, LDL 31, HDL 22. Thyroid panel is negative. The patient's abdominal pelvis CT, a renal and bladder ultrasound noted. IMPRESSION AND PLAN: 1. Acute renal failure. 2. Questionable sepsis with leukocytosis and granulocytosis. 3. Normocytic anemia. 4. Questionable hemorrhagic cystitis. 5. Questionable hemorrhagic cystitis with intrinsic mural and perivesicular abnormalities and dependent echogenic material debris in the bladder. 6. Left bundle-branch block and left axis deviation. 7. Left lower lung pleural thickening. 8. Cardiomegaly. 9. Sigmoid diverticulosis. 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 11. 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 12. Status post hysterectomy. 13. Sigmoid diverticulosis. 14. Leukocytosis with granulocytosis. 15. Normocytic anemia. 16. Hyponatremia. 17. Slow-resolving acute renal failure. 18. Hyperuricemia. 19. History of dementia. 20. Deconditioning. 21. Gait dysfunction. 22. Recurrent fall. 23. Questionable functional quadriplegia. 24. Hypovitaminosis D. 25. History of dyslipidemia. 26. History of angina, history of hypertension, history of dementia. 1. Altered mental status, etiology undetermined. 2. Acute renal failure and acute kidney injury and prerenal kidney injury. 3. Questionable and possible urinary tract infection. 4. Recurrent fall and gait dysfunction. 5. History of dementia. 6. Questionable swallowing and feeding dysfunction. 7. Leukocytosis with granulocytosis. 8. Normocytic anemia. 9. Hyperuricemia. 10. Hyperphosphatemia. 11. Transaminitis. 12. Elevated BNP with history of congestive heart failure. 13. Hematuria, pyuria, bacteriuria. 14. Left bundle branch block and left axis deviation. 15. Generalized osteopenia and thoracolumbar spondylosis with old healed left rib fracture. 16. Status post mastectomy for left breast carcinoma. 17. Gait dysfunction. 18. Recurrent falls. 19. 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 20. Questionable cystitis with thickened urinary bladder wall. 21. Questionable echogenic urinary bladder mass. 22. History of dementia. 23. History of hypovitaminosis D, history of anxiety, history of dementia, history of congestive heart failure, history of angina, history of dementia. 24. History of colovesicular and colovaginal fistula. PLAN: At this time, according to the patient's and son, the patient had a recent echo done by Dr. Peoples in his office. We will request cardiology consultation. Serial labs are ordered. CURRENT CONSULTATIONS: 1. Cardiology. 2. Gastroenterology. 3. Infectious disease. 4. Nephrology. 5. Surgery. The patient's case is referred to case management, TCU evaluation. Procalcitonin level ordered. CURRENT MEDICATIONS: Selenium 50 mcg daily, IV fluid changed to 0.45 ____ half normal saline at 80 mL an hour. Ativan 0.5 twice a day, Ecotrin 81 mg daily, Exelon capsule 4.5 mg twice a day, heparin 5000 subQ q. 8, Imdur 30 mg daily. Cefepime is increased to 1 gram IV q. 12 by infectious disease. Protonix 40 mg daily, Requip 8 mg daily, IV fluid. The patient is on allopurinol 100 mg daily. Echo with Doppler ordered until the patient's echo, which is done in Dr. Peoples' s office, is available. Renal diet. The patient has been ordered out of bed, ADRIANO stockings, SCDs, Ramirez catheter, occupational therapy, physical therapy, speech language evaluation, adoption social worker. Discharge planning ordered. The patient's condition, diagnosis, test results explained to the patient's son and the in layman's language. All questions and concerns answered to the patient and the patient's son, and the at length in layman's language. Treatment options, surgical-nonsurgical options discussed and explained to the patient's son and the in layman's language. All questions and concerns answered to their satisfaction. We will await further recommendations by cardiology, infectious disease, gastroenterology, nephrology , and surgery. Dictated and electronically signed, not read. Rigo Vargas MD cc: [id number] TT: 10/30/2016 10:53:52 Confirmation # [id number] Dictation # [id number] MTDD
--- NOTE | 2016-10-30 13:42 | CP.PCM.CON ---
History of Present Illness - History of Present Illness History of Present Illness: 81 yo F w/ pmh of htn, CHF w/ systolic dysfunction, Parkinsonism, colovesical and colovagninal fistulae, brought to ED due to repeated falls and altered mental status; Patient's family reports that she has been having increased urinary frequency since past few weeks; denies any dysruia but urine color sometimes dark; patient just completed 7 day course of levaquin for UTI but without any noticeable benefit per family; Patient also has been getting weaker over past few months, previously able to ambulate at home but recently very unsteady on her feet; patient reports good appetite but with difficulty swallowing (needing to have food chopped into smaller pieces) and weight loss per family; denies any nausea, vomiting or diarrhea; no hematuria or blood in stool. She denies any chest pain, palpitations, shortness of breath or paroxysmal nocturnal dyspnea; has recently been having R lower leg edema. Review of Systems - Constitutional Constitutional: Frequent Falls, Weight Loss - EENT Eyes: absent: Blurred Vision, Change in Vision Ears: absent: Decreased Hearing Nose/Mouth/Throat: Dysphagia. absent: Epistaxis, Nasal Discharge, Change in Voice, Sore Throat - Cardiovascular Cardiovascular: As Per HPI - Respiratory Respiratory: absent: Dyspnea - Gastrointestinal Gastrointestinal: absent: Abdominal Pain, Constipation, Diarrhea, Hematochezia, Vomiting - Genitourinary Genitourinary: As Per HPI - Musculoskeletal Musculoskeletal: absent: Arthralgias, Back Pain, Numbness - Integumentary Integumentary: absent: Pruritus Additional comments: Chronic lesions over face and neck; - Psychiatric Psychiatric: Anxiety. absent: Depression Past Patient History - Infectious Disease Hx of Infectious Diseases: None - Past Medical History & Family History Pertinent Family History: Mother with heart disease, father with stroke, sister with htn; - Past Social History Smoking Status: Never Smoked - CARDIAC Hx Cardiac Disorders: Yes Hx Congestive Heart Failure: Yes - PULMONARY Hx Respiratory Disorders: No - NEUROLOGICAL Hx Neurological Disorder: Yes Hx Parkinson's Disease: Yes (dx in 2000) - HEENT Hx HEENT Problems: No - RENAL Hx Chronic Kidney Disease: No - ENDOCRINE/METABOLIC Hx Endocrine Disorders: No - HEMATOLOGICAL/ONCOLOGICAL Hx Blood Disorders: No - INTEGUMENTARY Hx Dermatological Problems: No - MUSCULOSKELETAL/RHEUMATOLOGICAL Hx Musculoskeletal Disorders: No - GASTROINTESTINAL Hx Gastrointestinal Disorders: No - GENITOURINARY/GYNECOLOGICAL Hx Genitourinary Disorders: No - PSYCHIATRIC Hx Psychophysiologic Disorder: No Hx Substance Use: No - SURGICAL HISTORY Hx Hysterectomy: Yes Other/Comment: breat cancer in the past. - ANESTHESIA Hx Anesthesia: Yes Hx Anesthesia Reactions: No Meds Allergies/Adverse Reactions: Allergies Allergy/AdvReac Type Severity Reaction Status Date / Time No Known Allergies Allergy Verified 10/29/16 14:26 - Medications Medications: Current Medications Allopurinol (Zyloprim) 100 mg PO DAILY [facility] Last Admin: 10/30/16 10:30 Dose: 100 mg Aspirin (Ecotrin) 81 mg PO DAILY [facility] Last Admin: 10/30/16 10:30 Dose: 81 mg Heparin Sodium (Porcine) (Heparin) 5,000 units SC Q8H [facility] PRN Reason: Protocol Last Admin: 10/30/16 04:52 Dose: 5,000 units Cefepime HCl (Maxipime 1gm) 100 mls @ 100 mls/hr IVPB Q12H [facility] PRN Reason: Protocol Last Admin: 10/30/16 10:30 Dose: 100 mls/hr Sodium Chloride (Sodium Chloride 0.45%) 1,000 mls @ 80 mls/hr IV .[id number] [facility] Stop: 11/04/16 14:44 Isosorbide Mononitrate (Imdur) 30 mg PO DAILY [facility] Lorazepam (Ativan) 0.5 mg PO BID [facility] PRN Reason: Protocol Last Admin: 10/30/16 10:58 Dose: 0.5 mg Non-Formulary Medication (Selenium [Selenium]) 50 mcg PO DAILY [facility] Pantoprazole Sodium (Protonix Ec Tab) 40 mg PO 30 [facility] Last Admin: 10/30/16 05:54 Dose: 40 mg Rivastigmine (Exelon Cap) 4.5 mg PO BID [facility] Last Admin: 10/30/16 11:06 Dose: 4.5 mg Ropinirole HCl (Requip) 8 mg PO DAILY [facility] Last Admin: 10/30/16 11:06 Dose: 8 mg Physical Exam - Constitutional Appears: Well, No Acute Distress - Head Exam Head Exam: NORMAL INSPECTION - Eye Exam Eye Exam: Normal appearance. absent: Scleral icterus - ENT Exam ENT Exam: Mucous Membranes Moist - Neck Exam Neck exam: Positive for: Normal Inspection. Negative for: Lymphadenopathy - Respiratory Exam Respiratory Exam: Clear to Auscultation Bilateral, NORMAL BREATHING PATTERN. absent: Rhonchi, Wheezes, Respiratory Distress - Cardiovascular Exam Cardiovascular Exam: REGULAR RHYTHM, Systolic Murmur Additional comments: Palpable bilateral DP pulses; no femoral or carotid bruits; no abdominal bruit; - GI/Abdominal Exam GI & Abdominal Exam: Soft. absent: Distended, Tenderness - Exam Exam: absent: Bladder Distension - Extremities Exam Additional comments: Bilateral lower leg edema, R >> L - Neurological Exam Neurological exam: Alert, CN II-XII Intact, Oriented x3 Additional comments: 5/5 bilateral UE and LE motor strength - Skin Skin Exam: Normal Color, Warm Additional comments: Multiple raised brownish lesions over face and neck; Results - Vital Signs Recent Vital Signs: Last Vital Signs Temp 98 F 10/30/16 08:39 Pulse 66 10/30/16 08:39 Resp 18 10/30/16 08:39 BP 137/45 L 10/30/16 08:39 Pulse Ox 95 10/30/16 08:39 - Labs Result Diagrams: 10/30/16 07:30 10/30/16 07:30 Labs: Laboratory Results - last 24 hr 10/29/16 10/30/16 20:41 07:30 WBC 9.6 D RBC 3.63 Hgb 10.8 L Hct 33.6 L MCV 92.6 MCH 29.8 MCHC 32.1 RDW 13.7 Plt Count 253 MPV 9.5 Gran % 63.1 Lymph % (Auto) 27.7 [place] % (Auto) 7.9 H Eos % (Auto) 1.2 L Baso % (Auto) 0.1 Gran # 6.07 Lymph # 2.7 [place] # 0.8 H Eos # 0.1 Baso # 0.01 Sodium 149 H Potassium 4.4 Chloride 108 Carbon Dioxide 27 Anion Gap 18 BUN 95 H Creatinine 1.7 H Est GFR ( Amer) 35 Est GFR (Non-Af Amer) 29 Random Glucose 78 Lactic Acid 1.0 Calcium 9.2 Magnesium 2.3 H Total Bilirubin 0.5 Direct Bilirubin 0.5 H AST 28 ALT 36 Alkaline Phosphatase 55 Total Protein 7.4 Albumin 3.5 Globulin 3.9 Albumin/Globulin Ratio 0.9 L Triglycerides 127 Cholesterol 78 L LDL Cholesterol Direct 31 HDL Cholesterol 22 L 25-OH Vitamin D Total 33.6 - Imaging and Cardiology US - abdomen Status: Image reviewed by me Additional comment: Renal US - kidneys within normal range of asymmetry, normal echogenicity but slightly thin cortices; Assessment & Plan (1) CKD (chronic kidney disease) stage 3, GFR 30-59 ml/min Assessment and Plan: CKD IIIB; appears to have non-proteinuric kidney disease (although this may be masked with patient having been on ELIAN blockade) with baseline serum creatinine ~1.5; the differential is generally a cardiorenal etiology including renovascular disease versus reflux nephropathy (the latter unlikely with no post -void residual volume on bladder US); -continue statin therapy -optimize cardiac status with B-blockers and intermediate project manager with ELIAN blockade -avoid hypotensive insults -will obtain random urine protein/creatinine Status: Acute (2) Prerenal azotemia Assessment and Plan: Resolving; occurred in the setting of UTI with increased urinary frequency and decreased PO intake along with loss of renal autoregulation due to being on ARB losartan; serum creatinine 2.3 on presentation, now 1.7 (baseline ~1.5); -continue IVF (changing to 1/2NS at 100 cc/hr due to hypernatremia) -continue to hold losartan until renal function stabilizes and patient appears euvolemic -avoid nephrotoxic agents Status: Acute (3) Urinary tract infection Assessment and Plan: Urine culture growing gram negative delmy; on cefepime 1g q12h; should dose cefepime for CrCl 30-60 mL/min, will discuss with ID whether to decrease to q24h frequency; Status: Acute (4) HTN (hypertension) Assessment and Plan: Currently normotensive, only on imdur; would restart coreg at lower dose, 6.25 mg bid and continue to hold losartan; Status: Acute (5) CHF (congestive heart failure) Assessment and Plan: With systolic dysfunction; currently appears euvolemic on exam; restart B- blockers as mentioned above for cardiac optimization, particularly as patient's CKD may be cardiorenal in etiology; continue to hold diuretics and ARB; careful volume resuscitation to avoid overload and precipitating failure; Status: Acute (6) Leg edema Assessment and Plan: Bilateral mild/moderate lower leg edema on R, minimal on L; recommend to get lower ext venous to r/o DVT in patient with poor ambulatory status; Status: Acute (7) Hypernatremia Assessment and Plan: ~1.6 L free water deficit; changing IVF as mentioned above; Status: Acute
[2016-10-30] MEDS: SELENIUM 50 MCG PO SCH (14:11)
--- NOTE | 2016-10-30 17:40 | CP.PCM.CON ---
History of Present Illness - History of Present Illness History of Present Illness: 81 year old female with PMH of chronic CHF, Parkinson's disease, history of breast cancer, history of rectovesical and rectovaginal fistula was brought in to [facility] because of increasing urinary frequency. Apparently the patient was having the symptoms 3 weeks ago and was started by her doctor on Levaquin. There was some improvement but then it got worse again. There is also note of generalized weakness and decreased appetite. There is no note of fever or chills, no nausea or vomiting, no sore throat, no chest pain, no headache or dizziness, no dysphagia, no abdominal pain, no diarrhea. In the ED, she was noted to have leukocytosis and Infectious Diseases consult is requested to further evaluate and manage. Review of Systems - Review of Systems All systems: reviewed and no additional remarkable complaints except (as per HPI ) Past Patient History - Infectious Disease Hx of Infectious Diseases: None - Past Medical History & Family History Past Medical History?: Yes Past Family History: Reviewed and not pertinent - Past Social History Smoking Status: Never Smoked Alcohol: None Drugs: Denies Home Situation {Lives}: With Family - CARDIAC Hx Cardiac Disorders: Yes Hx Congestive Heart Failure: Yes - PULMONARY Hx Respiratory Disorders: No - NEUROLOGICAL Hx Neurological Disorder: Yes Hx Parkinson's Disease: Yes (dx in 2000) - HEENT Hx HEENT Problems: No - RENAL Hx Chronic Kidney Disease: No - ENDOCRINE/METABOLIC Hx Endocrine Disorders: No - HEMATOLOGICAL/ONCOLOGICAL Hx Blood Disorders: No - INTEGUMENTARY Hx Dermatological Problems: No - MUSCULOSKELETAL/RHEUMATOLOGICAL Hx Musculoskeletal Disorders: No - GASTROINTESTINAL Hx Gastrointestinal Disorders: No - GENITOURINARY/GYNECOLOGICAL Hx Genitourinary Disorders: No - PSYCHIATRIC Hx Psychophysiologic Disorder: No Hx Substance Use: No - SURGICAL HISTORY Hx Hysterectomy: Yes Other/Comment: breat cancer in the past. - ANESTHESIA Hx Anesthesia: Yes Hx Anesthesia Reactions: No Meds Allergies/Adverse Reactions: Allergies Allergy/AdvReac Type Severity Reaction Status Date / Time No Known Allergies Allergy Verified 10/29/16 14:26 - Medications Medications: Current Medications Allopurinol (Zyloprim) 100 mg PO DAILY [facility] Aspirin (Ecotrin) 81 mg PO DAILY [facility] Heparin Sodium (Porcine) (Heparin) 5,000 units SC Q8H [facility] PRN Reason: Protocol Last Admin: 10/29/16 20:59 Dose: 5,000 units Sodium Chloride (Sodium Chloride 0.9%) 1,000 mls @ 80 mls/hr IV .[id number] [facility] Stop: 11/01/16 12:29 Cefepime HCl (Maxipime 1gm) 100 mls @ 100 mls/hr IVPB Q12 [facility] PRN Reason: Protocol Isosorbide Mononitrate (Imdur) 30 mg PO DAILY [facility] Lorazepam (Ativan) 0.5 mg PO BID [facility] PRN Reason: Protocol Non-Formulary Medication (Selenium [Selenium]) 50 mcg PO DAILY [facility] Pantoprazole Sodium (Protonix Ec Tab) 40 mg PO 629 [facility] Rivastigmine (Exelon Cap) 4.5 mg PO BID [facility] Ropinirole HCl (Requip) 8 mg PO DAILY [facility] Physical Exam - Constitutional Appears: Non-toxic, No Acute Distress - Head Exam Head Exam: NORMAL INSPECTION - ENT Exam ENT Exam: Mucous Membranes Moist - Neck Exam Neck exam: Negative for: Lymphadenopathy, Meningismus - Respiratory Exam Respiratory Exam: Decreased Breath Sounds - Cardiovascular Exam Cardiovascular Exam: +S1, +S2 - GI/Abdominal Exam GI & Abdominal Exam: Soft. absent: Tenderness Results - Vital Signs Recent Vital Signs: Last Vital Signs Temp 97.1 F L 10/29/16 15:02 Pulse 61 10/29/16 20:54 Resp 16 10/29/16 20:54 BP 124/60 10/29/16 20:54 Pulse Ox 98 10/29/16 20:54 - Labs Result Diagrams: 10/30/16 07:30 10/30/16 07:30 Labs: Laboratory Results - last 24 hr 10/29/16 20:41 Lactic Acid 1.0 Assessment & Plan - Assessment and Plan (Free Text) Plan: Assessment Systemic Inflammatory Response Syndrome, consider sepsis secondary to urinary tract infection in a patient with rectovesical fistula, growing gram negative bacilli chronic renal failure chronic CHF Parkinson's disease history of breast cancer history of rectovesical and rectovaginal fistula Plan Started the patient on cefepime pending blood and final urine culture results Will monitor clinical response
--- NOTE | 2016-10-30 18:07 | CARD ---
APPROVED REPORT EKG Measurement Heart [id number] <Conclusion> Sinus rhythm with 1st degree AV block with fusion complexes Left axis deviation Left bundle branch block Abnormal ECG
--- NOTE | 2016-10-30 20:33 | CON ---
DATE: 10/30/2016 SERVICE: Cardiology. REASON FOR CONSULTATION: Preop evaluation and risk stratification for repair of the colovesical fist michelet and colovaginal fistula. BRIEF CLINICAL HISTORY: This is an 81-year-old female homebound, [facility] Dr[facility] Rene Finn[facility] and is being evaluated by a surgeon for closure of colovesical fistula and colovaginal fist michelet. The patient has a past medical history significant for hypertension, aortic stenosis, moderate AI, moderate mitral regurgitation, mild tricuspid regurgitation, some questionable history of dementi a, anemia, left bundle branch block. Denies any chest pain, shortness of breath, any palpitation. T he patient's and son is at the bedside, gives all the information. PAST MEDICAL HISTORY: Significant for hypertension, dementia, hyperlipidemia. Previous cardiac workup: The patient refused a stress test many times, many years ago. Most recentl y, patient had echocardiography done on 10/23/2016 that shows ejection fraction 55%, mild mitral valve prolapse, aortic valve calcified, shows mild aortic stenosis, moderate aortic regurgitation, moderat e mitral regurgitation, mild tricuspid regurgitation, mild pulmonary insufficiency, ejection fraction calculated as 55%. The patient had a MUGA scan done on 02/03/2014 that showed ejection fraction 33%, and prior to that, patient had a MUGA scan on 12/02/2011 that shows ejection fraction 53%. SOCIAL HISTORY: Denies any smoking. Denies any history of alcohol abuse. CURRENT MEDICATIONS: The patient is taking at home Vytorin 10/80, vitamin E, torsemide, selenium, Re quip, Exelon patch, losartan, lorazepam, isosorbide mononitrate, carvedilol, Coreg 12.5 mg twice a da y, vitamin C, aspirin. ALLERGIES: No known drug allergy. REVIEW OF SYSTEMS: As per HPI. PHYSICAL EXAMINATION: VITAL SIGNS: Temperature afebrile, heart rate 66, blood pressure 137/45. HEENT: PERRLA. Extraocular muscles intact. NECK: Supple. No carotid bruits. No thyromegaly. CHEST: Clear to auscultation. HEART: S1, S2 regular. ABDOMEN: Soft. EXTREMITIES: Clubbing and cyanosis negative. LABORATORY DATA: WBC ____, hemoglobin 10.8, hematocrit 33.6, platelet count 253. Chemistry shows so dium 149, potassium ____, chloride 108, carbon dioxide 27, anion gap of 18, BUN 95, creatinine 1.7, m agnesium 2.3. Total protein 7.4, albumin 3.9, albumin/globulin ratio 0.9. EKG shows normal sinus, l eft bundle ____ AV block. IMPRESSION: Left bundle branch block, mild aortic stenosis, moderate aortic regurg, moderate mitral regurgitation, preserved left ventricular function. The patient refused a stress test in the past, h ypertension, dementia, colovesical fistula, colovaginal fistula, needs repair. RECOMMENDATION: The patient will be very high risk because of underlying comorbidity for surgical pr ocedure. Needs risk/benefit ratio to be evaluated. If the patient really needs, can go, but would b e very, very high risk. I discussed with the . Discussed with the son. The patient is mostl y bed bound, not much functional active, so risk/benefit ratio as mentioned should be judged, as the patient will be a very high risk case, though not absolute contraindication, but these underlying com orbidities would put the patient a very high risk, needs to be critically judged risk/benefit ratio. We will follow with you. In the interim, continue beta juan alberto. We will follow with you. Thank you, Dr. Vargas, for providing us the opportunity of taking care of this patient. Bishop Jose MD cc: [id number] TT: 10/30/2016 20:32:49 Confirmation # [id number] Dictation # [id number] angela
--- NOTE | 2016-10-31 01:08 | CP.PCM.PN ---
Subjective - Date & Time of Evaluation Date of Evaluation: 10/31/16 Time of Evaluation: 01:08 - Subjective Subjective: Patient was seen at bedside because she was agitated , screaming. Patient allegedly is on ativan 2 mg PO at night time. Had Ativan 1 mg PO ordered by PMD little earlier. Patient has no complaints now except that she wants to go lower in the bed and she feels that she is standing up. She is alert and oriented x 3. This 81 year old white woman was admitted with weakness, history of falls , confusion, history of UTI symptoms. Has PMH of dementia, left breast cancer, anxiety, HTN, CHF , angina among long list of medical history. Objective - Vital Signs/Intake and Output Vital Signs (last 24 hours): Temp Pulse Resp BP Pulse Ox 98.3 F 70 19 127/44 L 94 L 10/30/16 16:00 10/30/16 16:00 10/30/16 16:00 10/30/16 16:00 10/30/16 16:00 Intake and Output: 10/30/16 10/31/16 18:59 06:59 Intake Total 480 Output Total 500 Balance -20 - Medications Medications: Current Medications Allopurinol (Zyloprim) 100 mg PO DAILY [facility] Last Admin: 10/30/16 10:30 Dose: 100 mg Aspirin (Ecotrin) 81 mg PO DAILY [facility] Last Admin: 10/30/16 10:30 Dose: 81 mg Heparin Sodium (Porcine) (Heparin) 5,000 units SC Q8H [facility] PRN Reason: Protocol Last Admin: 10/30/16 13:00 Dose: 5,000 units Cefepime HCl (Maxipime 1gm) 100 mls @ 100 mls/hr IVPB Q12H [facility] PRN Reason: Protocol Last Admin: 10/30/16 23:46 Dose: 100 mls/hr Sodium Chloride (Sodium Chloride 0.45%) 1,000 mls @ 100 mls/hr IV .Q10H [facility] Isosorbide Mononitrate (Imdur) 30 mg PO DAILY [facility] Last Admin: 10/30/16 14:08 Dose: 30 mg Lorazepam (Ativan) 0.5 mg PO BID [facility] PRN Reason: Protocol Last Admin: 10/30/16 17:39 Dose: 0.5 mg Non-Formulary Medication (Selenium [Selenium]) 50 mcg PO DAILY [facility] Last Admin: 10/30/16 14:11 Dose: Not Given Pantoprazole Sodium (Protonix Ec Tab) 40 mg PO 629 [facility] Last Admin: 10/30/16 05:54 Dose: 40 mg Rivastigmine (Exelon Cap) 4.5 mg PO BID [facility] Last Admin: 10/30/16 18:00 Dose: 4.5 mg Ropinirole HCl (Requip) 8 mg PO DAILY [facility] Last Admin: 10/30/16 11:06 Dose: 8 mg - Labs Labs: 10/30/16 07:30 10/30/16 07:30 PT 11.5 Seconds (9.9-11.8) 10/29/16 15:00 INR 1.06 (0.93-1.08) 10/29/16 15:00 APTT 25.8 Seconds (23.7-30.8) 10/29/16 15:00 - Constitutional Appears: Well, No Acute Distress - Head Exam Head Exam: ATRAUMATIC, NORMAL INSPECTION, NORMOCEPHALIC - Eye Exam Eye Exam: Normal appearance - ENT Exam ENT Exam: Normal External Ear Exam - Neck Exam Neck Exam: Normal Inspection - Respiratory Exam Respiratory Exam: NORMAL BREATHING PATTERN - Cardiovascular Exam Cardiovascular Exam: absent: JVD - GI/Abdominal Exam GI & Abdominal Exam: absent: Distended - Rectal Exam Rectal Exam: NORMAL INSPECTION - Extremities Exam Extremities Exam: Normal Inspection - Back Exam Back Exam: absent: NORMAL INSPECTION - Neurological Exam Neurological Exam: Alert - Psychiatric Exam Psychiatric exam: Anxious - Skin Skin Exam: Normal Color Assessment and Plan - Assessment and Plan (Free Text) Assessment: A/P : Dementia. Agitation. Intermittent confusion. HTN. CHF. Breast cancer Hx. Will give ativan 0.5 mg IV now and monitor. Continue present management.
[2016-10-31] MEDS: Pantoprazole 40 mg EC Tab PO SCH (06:09)
[2016-10-31 07:22] LABS: ADD MANUAL DIFF? NO
[2016-10-31 07:37] LABS: BASO # 0.01 K/mm3 (0.0-2.0); BASO % 0.1 % (0.0-3.0); EOS # 0.1 (0.0-0.7); EOS % 0.4 % (1.5-5.0); GRAN # 7.11 (1.4-6.5); GRAN % 57.7 % (50.0-68.0); HEMATOCRIT 31.1 % (36.0-48.0); LYMPH # 4.1 (1.2-3.4); LYMPH % 33.4 % (22.0-35.0); MEAN CELL VOLUME 93.1 fL (80.0-105.0); MEAN CORPUSCULAR HEMOGLOBIN 29.9 pg (25.0-35.0); MEAN CORPUSCULAR HGB CONC 32.2 g/dl (31.0-37.0); MEAN PLATELET VOLUME 9.5 fl (7.0-11.0); MONO % 8.4 % (1.0-6.0); PLATELET COUNT 250 10^3/uL (120.0-450.0); RED CELL DISTRIBUTION WIDTH 13.8 % (11.5-14.5); WHITE BLOOD COUNT 12.3 10^3/ul (4.5-11.0)
[2016-10-31 08:02] LABS: ALB/GLOB RATIO 0.8 (1.1-1.8); BILIRUBIN,DIRECT 0.4 mg/dL (0.0-0.4); BILIRUBIN,TOTAL 0.5 mg/dL (0.2-1.3); CALCIUM 8.5 mg/dL (8.4-10.5); MAGNESIUM 2.1 mg/dL (1.7-2.2); POTASSIUM 3.9 mmol/L (3.6-5.0); TOTAL PROTEIN 7.1 g/dL (5.8-8.3)
--- NOTE | 2016-10-31 09:08 | CP.PCM.PN ---
Subjective - Date & Time of Evaluation Date of Evaluation: 10/31/16 Time of Evaluation: 07:30 - Subjective Subjective: Surgery note for Dr Alfredo: Pt seen and examined at bedside. No acute events overnight. Pt was confused overnight. She denies any pain at this time. Still has fecal in her urine. No other complaints. Objective - Vital Signs/Intake and Output Vital Signs (last 24 hours): Temp Pulse Resp BP Pulse Ox 98.3 F 70 19 127/44 L 94 L 10/30/16 16:00 10/30/16 16:00 10/30/16 16:00 10/30/16 16:00 10/30/16 16:00 - Medications Medications: Current Medications Allopurinol (Zyloprim) 100 mg PO DAILY [facility] Last Admin: 10/30/16 10:00 Dose: Not Given Aspirin (Ecotrin) 81 mg PO DAILY [facility] Last Admin: 10/30/16 10:30 Dose: 81 mg Heparin Sodium (Porcine) (Heparin) 5,000 units SC Q8H [facility] PRN Reason: Protocol Last Admin: 10/31/16 06:09 Dose: 5,000 units Sodium Chloride (Sodium Chloride 0.45%) 1,000 mls @ 100 mls/hr IV .Q10H [facility] Last Admin: 10/31/16 08:53 Dose: 100 mls/hr Ceftriaxone Sodium (Rocephin 1 Gram Ivpb) 100 mls @ 100 mls/hr IVPB DAILY [facility] PRN Reason: Protocol Isosorbide Mononitrate (Imdur) 30 mg PO DAILY [facility] Last Admin: 10/30/16 14:08 Dose: 30 mg Lorazepam (Ativan) 0.5 mg PO BID [facility] PRN Reason: Protocol Last Admin: 10/30/16 17:39 Dose: 0.5 mg Non-Formulary Medication (Selenium [Selenium]) 50 mcg PO DAILY [facility] Last Admin: 10/30/16 14:11 Dose: Not Given Pantoprazole Sodium (Protonix Ec Tab) 40 mg PO 30 [facility] Last Admin: 10/31/16 06:09 Dose: 40 mg Rivastigmine (Exelon Cap) 4.5 mg PO BID [facility] Last Admin: 10/30/16 18:00 Dose: 4.5 mg Ropinirole HCl (Requip) 8 mg PO DAILY [facility] Last Admin: 10/30/16 11:06 Dose: 8 mg - Labs Labs: 10/31/16 06:45 10/31/16 06:45 PT 11.5 Seconds (9.9-11.8) 10/29/16 15:00 INR 1.06 (0.93-1.08) 10/29/16 15:00 APTT 25.8 Seconds (23.7-30.8) 10/29/16 15:00 - Constitutional Appears: No Acute Distress, Confused - ENT Exam ENT Exam: Mucous Membranes Moist - Respiratory Exam Respiratory Exam: Clear to Ausculation Bilateral, NORMAL BREATHING PATTERN - Cardiovascular Exam Cardiovascular Exam: REGULAR RHYTHM, +S1, +S2. absent: Murmur - GI/Abdominal Exam GI & Abdominal Exam: Soft, Normal Bowel Sounds. absent: Distended, Tenderness - Neurological Exam Neurological Exam: Alert, Awake, Oriented x3 Assessment and Plan - Assessment and Plan (Free Text) Assessment: 81 F with Rectovaginal , rectovesicle fistula with UTI - Consider surgery for possible colostomy - Recommend Marketing Planner consult - Cont Monitor urine output and bowel function - Cont ABX as per ID - Cont IVF - Medical management as per primary Further recs will discuss with Dr Juni Arreguin IM Resident PGY-1
--- NOTE | 2016-10-31 10:22 | PN ---
DATE: 10/31/2016 SUBJECTIVE: The patient is lying in bed. According to the son and the patient's , she had a "rough night" last night with increasing confusion and agitation. She does have a history of Alzheim er's dementia. PHYSICAL EXAMINATION: VITAL SIGNS: Reveal temperature of 98.3, blood pressure 127/44, heart rate of 70. ABDOMEN: Soft, nontender. Urinary bag appears dark with fecal sediment in the bottom of the bag. Blood cultures are negative. Urine culture is positive for E. coli. White blood cell count is 12.3, hemoglobin is 10, BUN 55, cr eatinine 1.5. 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 The patient had a recent echocardiogram which showed moderate aortic regurgitation, moderate chris l regurgitation making her high risk for surgery. RECOMMENDATIONS: 1. Continue IV antibiotics for now. 2. Due to high risk for surgery, we will defer surgery for now and treat conservatively. Timothy Julien MD cc: [id number] TT: 10/31/2016 10:22:08 Confirmation # [id number] Dictation # [id number] tn
[2016-10-31] MEDS: cefTRIAXone 1 gm 100 ML IVPB SCH (10:31)
--- NOTE | 2016-10-31 15:11 | CP.PCM.PCO ---
Physician Communication Note - Physician Communication Note Physician Communication Note: Pt/Family decline colostomy now-Will consider if condition worsens
--- NOTE | 2016-10-31 15:17 | PN ---
DATE: 10/31/2016 The patient is in room 572, bed 1. REASON FOR CONSULTATION: Hypertension, aortic stenosis, aortic regurg, mitral regurg, colovesical fi stula, cardiac risk stratification. HISTORY OF PRESENT ILLNESS: This 81-year-old female was admitted with urinary tract infection, alter ed mental status. The patient known to have colovesical fistula and colovaginal fistula. The patien t known to have hypertension. Recent echo showed mild aortic stenosis, moderate aortic regurgitation , moderate mitral regurgitation, mild tricuspid regurg, preserved LV ejection fraction. The patient has questionable history of dementia, anemia, left bundle branch block. The patient is lying flat in bed without chest pain, shortness of breath, palpitation. PHYSICAL EXAMINATION: VITAL SIGNS: Blood pressure 127/44, respirations 19, pulse 70, temperature 98.3. HEAD: Normocephalic. EYES: Pupils normal. Conjunctivae slightly pale. NECK: JVP low. Carotid equal. THORAX: AP diameter normal. LUNGS: Clear. CARDIOVASCULAR: S1, S2, systolic murmur, no rub. ABDOMEN: Soft. No tenderness, no organomegaly. EXTREMITIES: No clubbing, no cyanosis. LABORATORY DATA: WBC 12.3, hemoglobin 10.0, hematocrit 31.1. Sodium 147, potassium 3.9, BUN 55, cre atinine 1.5, random glucose 91, magnesium 2.1, calcium 8.5. AST 43, ALT 37, total protein 7.1, album in 3.3. DIAGNOSES: Mild aortic stenosis, moderate aortic regurgitation, moderate mitral regurgitation, mild tricuspid regurgitation, preserved left ventricular function, hypertension, dementia, colovesical fis gerardo, colovaginal fistula, dementia, altered mental status. PLAN: The patient clinically does not have any anginal symptoms and she always refused stress test i n the past. She only agreed to the echos in the past. If patient needs surgery, she is going to be high risk case but there is no absolute contraindication from cardiac point of view not to do surgery . The patient needs surgery so we have to neurological surgery teacher the risk/benefit ratio for surgery. Situation discu ssed in detail with the and son of the patient, and they are aware of the patient's status. The patient is getting IV fluid, aspirin 81 daily, heparin 5000 units subq q. 8 hours, isosorbide mon o 30 daily, Rocephin 1 gram IV daily. Will add Lopressor 12.5 mg p.o. b.i.d. to therapy. Will follo w with you. Bishop Peoples MD cc: [id number] TT: 10/31/2016 15:16:41 Confirmation # [id number] Dictation # [id number] mn
[2016-10-31] MEDS: Sodium Chloride 0.45% 1,000 ML IV SCH (17:51)
--- NOTE | 2016-10-31 20:37 | PN ---
DATE: 10/31/2016 An 81-year-old female with past medical history of hypertension, CHF with systolic dysfunction, Parki nsonism, history of colovesical and colovaginal fistula, admitted with UTI, sepsis. Nephrology consu lted for acute renal failure. The patient's family reporting that she appears confused today. The p atient is saying that she has been standing all night because there was no bed available. Otherwise, denies any complaints. Is afraid that she is going to fall onto the floor. PHYSICAL EXAMINATION: VITAL SIGNS: This morning, blood pressure 137/45, heart rate 66, respirations 18, temperature 98.0. O2 sat 95% on room air. GENERAL: No apparent distress, able to converse coherently in full sentences, alert and oriented x 3 . HEENT: Moist mucous membranes. No scleral icterus. CHEST: Clear to auscultation bilaterally, no rales, no wheezes, no rhonchi. HEART: Soft systolic murmur. Regular rate and rhythm. ABDOMEN: Soft, nontender, nondistended. EXTREMITIES: No more lower leg edema. LABORATORY DATA: This morning, WBC 12.3, hemoglobin 10.0, hematocrit 31.1, platelets 250. Chemistry panel: Sodium 137, potassium 3.9, chloride 113, bicarbonate 26, BUN 55, creatinine 1.5, calcium 8.5 , albumin 7.1. ASSESSMENT AND PLAN: 1. Prerenal azotemia, resolved. Occurred in the setting of a urinary tract infection with increased urinary frequency and decreased p.o. intake, along with loss of renal autoregulation due to being on losartan. Serum creatinine now at baseline of 1.5. Continue to hold losartan. Can restart tomorro w. 2. 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 Awaiting quantificat ion of proteinuria with random urine protein and creatinine level. 3. Urinary tract infection. Urine culture growing Escherichia coli. Antibiotics changed to ceftria xone today. No renal dose adjustment needed. 4. Hypertension, normotensive currently. Euvolemic on exam. Currently on low dose metoprolol and I mdur. Would wait one more day to restart losartan. 5. Hypernatremia, only mildly improved. Increase half NS to 120 mL per hour. Wally Nilsa ANGEL cc: [id number] TT: 10/31/2016 20:36:56 Confirmation # [id number] Dictation # [id number] rn
--- NOTE | 2016-10-31 22:25 | CP.PCM.PN ---
Subjective - Date & Time of Evaluation Date of Evaluation: 10/31/16 Time of Evaluation: 10:25 - Subjective Subjective: Comfortable in bed, not in distress, no fevers overnight, no diarrhea, no abdominal pain. Objective - Vital Signs/Intake and Output Vital Signs (last 24 hours): Temp Pulse Resp BP Pulse Ox 97.9 F 65 20 114/42 L 93 L 10/31/16 16:00 10/31/16 16:00 10/31/16 16:00 10/31/16 16:00 10/31/16 16:00 Intake and Output: 10/31/16 11/01/16 18:59 06:59 Intake Total 720 120 Output Total 1000 400 Balance -280 -280 - Medications Medications: Current Medications Allopurinol (Zyloprim) 100 mg PO DAILY [facility] Last Admin: 10/31/16 10:32 Dose: 100 mg Aspirin (Ecotrin) 81 mg PO DAILY [facility] Last Admin: 10/31/16 10:31 Dose: 81 mg Cholecalciferol (Vitamin D) 2,000 iu PO DAILY [facility] Last Admin: 10/31/16 10:31 Dose: 2,000 iu Clonazepam (Klonopin) 4 mg PO HS [facility] PRN Reason: Protocol Last Admin: 10/31/16 20:36 Dose: 4 mg Heparin Sodium (Porcine) (Heparin) 5,000 units SC Q8H [facility] PRN Reason: Protocol Last Admin: 10/31/16 22:11 Dose: 5,000 units Ceftriaxone Sodium (Rocephin 1 Gram Ivpb) 100 mls @ 100 mls/hr IVPB DAILY [facility] PRN Reason: Protocol Last Admin: 10/31/16 10:31 Dose: 100 mls/hr Sodium Chloride (Sodium Chloride 0.45%) 1,000 mls @ 120 mls/hr IV .Q8H20M [facility] Last Admin: 10/31/16 17:51 Dose: 120 mls/hr Isosorbide Mononitrate (Imdur) 30 mg PO DAILY [facility] Last Admin: 10/31/16 10:31 Dose: 30 mg Lorazepam (Ativan) 0.5 mg PO BID [facility] PRN Reason: Protocol Last Admin: 10/31/16 17:50 Dose: 0.5 mg Metoprolol Tartrate (Lopressor) 12.5 mg PO BID [facility] Last Admin: 10/31/16 17:51 Dose: 12.5 mg Non-Formulary Medication (Selenium [Selenium]) 50 mcg PO DAILY [facility] Last Admin: 10/30/16 14:11 Dose: Not Given Pantoprazole Sodium (Protonix Ec Tab) 40 mg PO 30 [facility] Last Admin: 10/31/16 06:09 Dose: 40 mg Rivastigmine (Exelon Cap) 4.5 mg PO BID [facility] Last Admin: 10/31/16 17:50 Dose: 4.5 mg Ropinirole HCl (Requip) 8 mg PO DAILY [facility] Last Admin: 10/31/16 14:17 Dose: 8 mg - Labs Labs: 10/31/16 06:45 10/31/16 06:45 PT 11.5 Seconds (9.9-11.8) 10/29/16 15:00 INR 1.06 (0.93-1.08) 10/29/16 15:00 APTT 25.8 Seconds (23.7-30.8) 10/29/16 15:00 - Constitutional Appears: Non-toxic, No Acute Distress - Head Exam Head Exam: NORMAL INSPECTION - Neck Exam Neck Exam: absent: Meningismus - Respiratory Exam Respiratory Exam: Decreased Breath Sounds - Cardiovascular Exam Cardiovascular Exam: +S1, +S2 - GI/Abdominal Exam GI & Abdominal Exam: Soft. absent: Tenderness Assessment and Plan - Assessment and Plan (Free Text) Plan: Assessment Systemic Inflammatory Response Syndrome, consider sepsis secondary to urinary tract infection in a patient with rectovesical fistula, growing E.coli, slowly improving chronic renal failure chronic CHF Parkinson's disease history of breast cancer history of rectovesical and rectovaginal fistula Plan change cefepime to Rocephin Will continue to monitor clinical response
[2016-11-01] MEDS: Pantoprazole 40 mg EC Tab PO SCH (05:46)
[2016-11-01 07:31] LABS: ADD MANUAL DIFF? NO
[2016-11-01 07:39] LABS: BASO # 0.02 K/mm3 (0.0-2.0); BASO % 0.1 % (0.0-3.0); EOS # 0.1 (0.0-0.7); EOS % 0.5 % (1.5-5.0); GRAN # 10.33 (1.4-6.5); GRAN % 66.8 % (50.0-68.0); HEMATOCRIT 31.5 % (36.0-48.0); LYMPH # 3.5 (1.2-3.4); LYMPH % 22.9 % (22.0-35.0); MEAN CELL VOLUME 93.2 fL (80.0-105.0); MEAN CORPUSCULAR HEMOGLOBIN 30.2 pg (25.0-35.0); MEAN CORPUSCULAR HGB CONC 32.4 g/dl (31.0-37.0); MEAN PLATELET VOLUME 9.6 fl (7.0-11.0); MONO # 1.5 (0.1-0.6); MONO % 9.7 % (1.0-6.0); PLATELET COUNT 262 10^3/uL (120.0-450.0); WHITE BLOOD COUNT 15.5 10^3/ul (4.5-11.0)
[2016-11-01 07:47] LABS: ALB/GLOB RATIO 0.8 (1.1-1.8); BILIRUBIN,DIRECT 0.4 mg/dL (0.0-0.4); BILIRUBIN,TOTAL 0.6 mg/dL (0.2-1.3); CALCIUM 7.8 mg/dL (8.4-10.5); POTASSIUM 3.8 mmol/L (3.6-5.0); TOTAL PROTEIN 7.1 g/dL (5.8-8.3)
[2016-11-01] MEDS: cefTRIAXone 1 gm 100 ML IVPB SCH (09:44)
[2016-11-01] MEDS: SELENIUM 50 MCG PO SCH (09:53)
--- NOTE | 2016-11-01 10:31 | CP.PCM.PN ---
Subjective - Date & Time of Evaluation Date of Evaluation: 11/01/16 Time of Evaluation: 08:00 - Subjective Subjective: GENERAL SURGERY PROGRESS NOTE FOR DR. BRUCE Patient seen and examined at bedside with family present. Patient states that she has no pain and is tolerating her dysphagia diet. Family is unsure about surgery and states that Thursday is too soon as they would like more time to decide on surgery. Objective - Vital Signs/Intake and Output Vital Signs (last 24 hours): Temp Pulse Resp BP Pulse Ox 99.1 F 69 20 137/52 L 92 L 11/01/16 07:46 11/01/16 07:46 11/01/16 07:46 11/01/16 10:06 11/01/16 07:46 Intake and Output: 11/01/16 11/01/16 06:59 18:59 Intake Total 120 Output Total 400 Balance -280 - Medications Medications: Current Medications Allopurinol (Zyloprim) 100 mg PO DAILY [facility] Last Admin: 11/01/16 09:43 Dose: 100 mg Aspirin (Ecotrin) 81 mg PO DAILY [facility] Last Admin: 11/01/16 09:43 Dose: 81 mg Cholecalciferol (Vitamin D) 2,000 iu PO DAILY [facility] Last Admin: 11/01/16 09:43 Dose: 2,000 iu Clonazepam (Klonopin) 4 mg PO HS [facility] PRN Reason: Protocol Last Admin: 10/31/16 20:36 Dose: 4 mg Heparin Sodium (Porcine) (Heparin) 5,000 units SC Q8H [facility] PRN Reason: Protocol Last Admin: 11/01/16 05:46 Dose: 5,000 units Ceftriaxone Sodium (Rocephin 1 Gram Ivpb) 100 mls @ 100 mls/hr IVPB DAILY [facility] PRN Reason: Protocol Last Admin: 11/01/16 09:44 Dose: 100 mls/hr Sodium Chloride (Sodium Chloride 0.45%) 1,000 mls @ 120 mls/hr IV .Q8H20M [facility] Last Admin: 10/31/16 17:51 Dose: 120 mls/hr Isosorbide Mononitrate (Imdur) 30 mg PO DAILY [facility] Last Admin: 11/01/16 09:43 Dose: 30 mg Lorazepam (Ativan) 0.5 mg PO BID [facility] PRN Reason: Protocol Last Admin: 11/01/16 09:42 Dose: 0.5 mg Metoprolol Tartrate (Lopressor) 12.5 mg PO BID [facility] Last Admin: 11/01/16 10:06 Dose: Not Given Non-Formulary Medication (Selenium [Selenium]) 50 mcg PO DAILY [facility] Last Admin: 11/01/16 09:53 Dose: Not Given Pantoprazole Sodium (Protonix Ec Tab) 40 mg PO 0630 [facility] Last Admin: 11/01/16 05:46 Dose: 40 mg Rivastigmine (Exelon Cap) 4.5 mg PO BID [facility] Last Admin: 11/01/16 09:43 Dose: 4.5 mg Ropinirole HCl (Requip) 8 mg PO DAILY [facility] Last Admin: 11/01/16 09:43 Dose: 8 mg - Labs Labs: 11/01/16 07:29 11/01/16 07:29 PT 11.5 Seconds (9.9-11.8) 10/29/16 15:00 INR 1.06 (0.93-1.08) 10/29/16 15:00 APTT 25.8 Seconds (23.7-30.8) 10/29/16 15:00 Assessment and Plan - Assessment and Plan (Free Text) Assessment: 81yo F with rectovaginal/rectovesicle fistula - Was scheduled for OR Thursday morning pending cardiology clearance and family wishes - However, family still unsure about surgery and states Thursday too early to decide - Will discuss with Dr. Juni Storey PGY-2
--- NOTE | 2016-11-01 13:09 | RAD ---
HISTORY: shortness of breath COMPARISON: 10/29/2016 FINDINGS: LUNGS: No active pulmonary disease. PLEURA: No significant pleural effusion identified, no pneumothorax apparent. CARDIOVASCULAR: Mild cardiomegaly and mild vascular congestion OSSEOUS STRUCTURES: No significant abnormalities. VISUALIZED UPPER ABDOMEN: Normal. OTHER FINDINGS: None. IMPRESSION: No active disease.
--- NOTE | 2016-11-01 14:43 | PN ---
DATE: 11/01/2016 REASON FOR CONSULTATION AND FOLLOWUP: Hypertension, aortic stenosis, aortic regurgitation, mitral re gurgitation, colovesical fistula, cardiac clearance for preop surgery. BRIEF CLINICAL HISTORY: This is an 81-year-old female admitted with urinary tract infection, altered mental status, found to have colovesical fistula colovaginal fistula. A cardiology consult was call ed for cardiac clearance and risk stratification. The patient denies any chest pain, shortness of br eath, any palpitation. PHYSICAL EXAMINATION: VITAL SIGNS: Temperature afebrile, heart rate ____, blood pressure 152/56. HEENT: PERRLA. Extraocular muscles intact. NECK: Supple. No carotid bruit. No thyromegaly. CHEST: Clear to auscultation. HEART: S1, S2 regular. ABDOMEN: Soft. EXTREMITIES: Clubbing and cyanosis negative. LABORATORY DATA: Blood workup as follows: WBC ____, hemoglobin ____, hematocrit 31.5, platelet coun t 262. Chemistry shows sodium 144, potassium 3.0, chloride 112, carbon dioxide 25, anion gap of 11, BUN 35, creatinine 1.2. The patient had echocardiography that showed mild aortic stenosis, moderate aortic regurgitation, mod erate mitral regurgitation, mild tricuspid regurgitation, preserved left ventricular function, hyper tension, dementia, colovesical fistula, colovaginal fistula, dementia, altered mental status, preop c learance. RECOMMENDATION: The patient clinically does not have any anginal symptoms. No evidence of arrhythmi a or congestive heart failure. The patient refused a stress in the past. If the patient needs surge ry, can go as a high risk case, no ____ from cardiology point of view to do surgery, but patient koby l be a high risk case because of underlying comorbidity. For the time being, continue IV fluid, gent le hydration. Has poor intake. DVT prophylaxis and aspirin. We will follow with you. Thank you, Dr. Vargas, for providing the opportunity in taking care of this patient. Bishop Jose MD cc: [id number] TT: 11/01/2016 14:42:46 Confirmation # [id number] Dictation # [id number] rn
--- NOTE | 2016-11-01 15:52 | CP.PCM.PN ---
Subjective - Date & Time of Evaluation Date of Evaluation: 11/01/16 Time of Evaluation: 15:00 - Subjective Subjective: Patient is a little sleepy today, not eating that much, no fever or chills, no diarrhea. Objective - Vital Signs/Intake and Output Vital Signs (last 24 hours): Temp Pulse Resp BP Pulse Ox 99.1 F 69 20 137/52 L 92 L 11/01/16 07:46 11/01/16 07:46 11/01/16 07:46 11/01/16 10:06 11/01/16 07:46 Intake and Output: 11/01/16 11/01/16 06:59 18:59 Intake Total 120 420 Output Total 400 600 Balance -280 -180 - Medications Medications: Current Medications Allopurinol (Zyloprim) 100 mg PO DAILY [facility] Last Admin: 11/01/16 09:43 Dose: 100 mg Aspirin (Ecotrin) 81 mg PO DAILY [facility] Last Admin: 11/01/16 09:43 Dose: 81 mg Cholecalciferol (Vitamin D) 2,000 iu PO DAILY [facility] Last Admin: 11/01/16 09:43 Dose: 2,000 iu Clonazepam (Klonopin) 4 mg PO HS [facility] PRN Reason: Protocol Last Admin: 10/31/16 20:36 Dose: 4 mg Heparin Sodium (Porcine) (Heparin) 5,000 units SC Q8H [facility] PRN Reason: Protocol Last Admin: 11/01/16 12:37 Dose: 5,000 units Ceftriaxone Sodium (Rocephin 1 Gram Ivpb) 100 mls @ 100 mls/hr IVPB DAILY [facility] PRN Reason: Protocol Last Admin: 11/01/16 09:44 Dose: 100 mls/hr Sodium Chloride (Sodium Chloride 0.45%) 1,000 mls @ 120 mls/hr IV .Q8H20M [facility] Last Admin: 10/31/16 17:51 Dose: 120 mls/hr Isosorbide Mononitrate (Imdur) 30 mg PO DAILY [facility] Last Admin: 11/01/16 09:43 Dose: 30 mg Lorazepam (Ativan) 0.5 mg PO BID [facility] PRN Reason: Protocol Last Admin: 11/01/16 09:42 Dose: 0.5 mg Metoprolol Tartrate (Lopressor) 12.5 mg PO BID [facility] Last Admin: 11/01/16 10:06 Dose: Not Given Non-Formulary Medication (Selenium [Selenium]) 50 mcg PO DAILY [facility] Last Admin: 11/01/16 09:53 Dose: Not Given Pantoprazole Sodium (Protonix Ec Tab) 40 mg PO 0630 [facility] Last Admin: 11/01/16 05:46 Dose: 40 mg Rivastigmine (Exelon Cap) 4.5 mg PO BID [facility] Last Admin: 11/01/16 09:43 Dose: 4.5 mg Ropinirole HCl (Requip) 8 mg PO DAILY [facility] Last Admin: 11/01/16 09:43 Dose: 8 mg - Labs Labs: 11/01/16 07:29 11/01/16 07:29 PT 11.5 Seconds (9.9-11.8) 10/29/16 15:00 INR 1.06 (0.93-1.08) 10/29/16 15:00 APTT 25.8 Seconds (23.7-30.8) 10/29/16 15:00 - Constitutional Appears: Non-toxic, No Acute Distress - Head Exam Head Exam: NORMAL INSPECTION - ENT Exam ENT Exam: Mucous Membranes Moist - Neck Exam Neck Exam: absent: Lymphadenopathy, Meningismus - Respiratory Exam Respiratory Exam: Decreased Breath Sounds - Cardiovascular Exam Cardiovascular Exam: +S1, +S2 - GI/Abdominal Exam GI & Abdominal Exam: Soft. absent: Tenderness Assessment and Plan - Assessment and Plan (Free Text) Plan: Assessment Systemic Inflammatory Response Syndrome, consider sepsis secondary to urinary tract infection in a patient with rectovesical fistula, growing E.coli, slowly improving chronic renal failure chronic CHF Parkinson's disease history of breast cancer history of rectovesical and rectovaginal fistula Plan continue Rocephin day 2; patient has increased WBC count today, will monitor and repeat septic work up for fever or further increase in WBC count Will continue to monitor clinical response
[2016-11-01] MEDS: Sodium Chloride 0.45% 1,000 ML IV SCH (22:03)
--- NOTE | 2016-11-01 23:15 | CP.PCM.PN ---
<Max Wilder - Last Filed: 11/02/16 00:48> Subjective - Date & Time of Evaluation Date of Evaluation: 11/02/16 Time of Evaluation: 00:48 - Subjective Subjective: SURGERY NOTE FOR DR. SELLERS 81F seen and examined at bedside. Patient resting comfortably, now able to sleep. Objective - Vital Signs/Intake and Output Vital Signs (last 24 hours): Temp Pulse Resp BP Pulse Ox 98.7 F 84 20 123/46 L 96 11/01/16 16:11 11/01/16 17:43 11/01/16 16:11 11/01/16 17:43 11/01/16 16:11 Intake and Output: 11/01/16 11/02/16 18:59 06:59 Intake Total 420 360 Output Total 600 250 Balance -180 110 - Medications Medications: Current Medications Allopurinol (Zyloprim) 100 mg PO DAILY [facility] Last Admin: 11/01/16 09:43 Dose: 100 mg Aspirin (Ecotrin) 81 mg PO DAILY [facility] Last Admin: 11/01/16 09:43 Dose: 81 mg Cholecalciferol (Vitamin D) 2,000 iu PO DAILY [facility] Last Admin: 11/01/16 09:43 Dose: 2,000 iu Clonazepam (Klonopin) 4 mg PO HS [facility] PRN Reason: Protocol Last Admin: 11/01/16 22:02 Dose: 4 mg Heparin Sodium (Porcine) (Heparin) 5,000 units SC Q8H [facility] PRN Reason: Protocol Last Admin: 11/01/16 22:02 Dose: 5,000 units Ceftriaxone Sodium (Rocephin 1 Gram Ivpb) 100 mls @ 100 mls/hr IVPB DAILY [facility] PRN Reason: Protocol Last Admin: 11/01/16 09:44 Dose: 100 mls/hr Sodium Chloride (Sodium Chloride 0.45%) 1,000 mls @ 120 mls/hr IV .Q8H20M [facility] Last Admin: 11/01/16 22:03 Dose: 120 mls/hr Isosorbide Mononitrate (Imdur) 30 mg PO DAILY [facility] Last Admin: 11/01/16 09:43 Dose: 30 mg Lorazepam (Ativan) 0.5 mg PO BID [facility] PRN Reason: Protocol Last Admin: 11/01/16 18:26 Dose: 0.5 mg Metoprolol Tartrate (Lopressor) 12.5 mg PO BID [facility] Last Admin: 11/01/16 17:43 Dose: Not Given Non-Formulary Medication (Selenium [Selenium]) 50 mcg PO DAILY [facility] Last Admin: 11/01/16 09:53 Dose: Not Given Pantoprazole Sodium (Protonix Ec Tab) 40 mg PO 0630 [facility] Last Admin: 11/01/16 05:46 Dose: 40 mg Rivastigmine (Exelon Cap) 4.5 mg PO BID [facility] Last Admin: 11/01/16 17:43 Dose: 4.5 mg Ropinirole HCl (Requip) 8 mg PO DAILY [facility] Last Admin: 11/01/16 09:43 Dose: 8 mg - Labs Labs: 11/01/16 07:29 11/01/16 07:29 PT 11.5 Seconds (9.9-11.8) 10/29/16 15:00 INR 1.06 (0.93-1.08) 10/29/16 15:00 APTT 25.8 Seconds (23.7-30.8) 10/29/16 15:00 - Constitutional Appears: Non-toxic, No Acute Distress - Head Exam Head Exam: ATRAUMATIC - Respiratory Exam Respiratory Exam: Clear to Ausculation Bilateral, NORMAL BREATHING PATTERN - Cardiovascular Exam Cardiovascular Exam: REGULAR RHYTHM, +S1, +S2 - GI/Abdominal Exam GI & Abdominal Exam: Soft. absent: Distended, Guarding, Rigid, Tenderness, Rebound - Exam Additional comments: feces in the power canister <Wally Ash - Last Filed: 11/02/16 08:43> Subjective - Date & Time of Evaluation Date of Evaluation: 11/01/16 Time of Evaluation: 11:00 - Subjective Subjective: Patient reportedly less agitated overnight but started on O2 via nasal cannula for unclear reasons; patient denies any sob; Objective - Vital Signs/Intake and Output Vital Signs (last 24 hours): Temp Pulse Resp BP Pulse Ox 98.7 F 84 20 123/46 L 96 11/01/16 16:11 11/01/16 17:43 11/01/16 16:11 11/01/16 17:43 11/01/16 16:11 Intake and Output: 11/01/16 11/02/16 18:59 06:59 Intake Total 420 360 Output Total 600 250 Balance -180 110 - Medications Medications: Current Medications Allopurinol (Zyloprim) 100 mg PO DAILY [facility] Last Admin: 11/01/16 09:43 Dose: 100 mg Aspirin (Ecotrin) 81 mg PO DAILY [facility] Last Admin: 11/01/16 09:43 Dose: 81 mg Cholecalciferol (Vitamin D) 2,000 iu PO DAILY [facility] Last Admin: 11/01/16 09:43 Dose: 2,000 iu Clonazepam (Klonopin) 4 mg PO HS [facility] PRN Reason: Protocol Last Admin: 11/01/16 22:02 Dose: 4 mg Heparin Sodium (Porcine) (Heparin) 5,000 units SC Q8H [facility] PRN Reason: Protocol Last Admin: 11/01/16 22:02 Dose: 5,000 units Ceftriaxone Sodium (Rocephin 1 Gram Ivpb) 100 mls @ 100 mls/hr IVPB DAILY [facility] PRN Reason: Protocol Last Admin: 11/01/16 09:44 Dose: 100 mls/hr Sodium Chloride (Sodium Chloride 0.45%) 1,000 mls @ 120 mls/hr IV .Q8H20M [facility] Last Admin: 11/01/16 22:03 Dose: 120 mls/hr Isosorbide Mononitrate (Imdur) 30 mg PO DAILY [facility] Last Admin: 11/01/16 09:43 Dose: 30 mg Lorazepam (Ativan) 0.5 mg PO BID [facility] PRN Reason: Protocol Last Admin: 11/01/16 18:26 Dose: 0.5 mg Metoprolol Tartrate (Lopressor) 12.5 mg PO BID [facility] Last Admin: 11/01/16 17:43 Dose: Not Given Non-Formulary Medication (Selenium [Selenium]) 50 mcg PO DAILY [facility] Last Admin: 11/01/16 09:53 Dose: Not Given Pantoprazole Sodium (Protonix Ec Tab) 40 mg PO 0630 [facility] Last Admin: 11/01/16 05:46 Dose: 40 mg Rivastigmine (Exelon Cap) 4.5 mg PO BID [facility] Last Admin: 11/01/16 17:43 Dose: 4.5 mg Ropinirole HCl (Requip) 8 mg PO DAILY [facility] Last Admin: 11/01/16 09:43 Dose: 8 mg - Labs Labs: 11/01/16 07:29 11/01/16 07:29 PT 11.5 Seconds (9.9-11.8) 10/29/16 15:00 INR 1.06 (0.93-1.08) 10/29/16 15:00 APTT 25.8 Seconds (23.7-30.8) 10/29/16 15:00 - Constitutional Appears: Well, No Acute Distress - Head Exam Head Exam: NORMAL INSPECTION - Eye Exam Eye Exam: Normal appearance. absent: Scleral icterus - ENT Exam ENT Exam: Mucous Membranes Moist - Neck Exam Neck Exam: Normal Inspection - Respiratory Exam Respiratory Exam: Clear to Ausculation Bilateral, NORMAL BREATHING PATTERN - Cardiovascular Exam Cardiovascular Exam: RRR Additional comments: systolic murmur - GI/Abdominal Exam GI & Abdominal Exam: Soft. absent: Distended, Tenderness - Extremities Exam Additional comments: no leg edema - Neurological Exam Neurological Exam: Alert, Awake - Psychiatric Exam Psychiatric exam: Normal Affect, Normal Mood - Skin Skin Exam: Normal Color. absent: Cyanosis Assessment and Plan (1) CKD (chronic kidney disease) stage 3, GFR 30-59 ml/min Assessment & Plan: Renal function contnuing to improve with volume resuscitation; serum creat 1.2 lower than previously thought baseline of 1.5; stable volume and electrolyte status; -CXR -continue IVF Status: Acute (2) Prerenal azotemia Assessment & Plan: Resolving; secondary to urinary frequency in the setting of UTI; continue IVF Status: Acute (3) Urinary tract infection Assessment & Plan: on ceftriaxone, no renal dose adjustment needed; Status: Acute (4) HTN (hypertension) Assessment & Plan: Controlled, continue current meds; Status: Acute (5) CHF (congestive heart failure) Assessment & Plan: Per history given by family; currently euvolemic on exam; monitor; Status: Chronic (6) Hypernatremia Assessment & Plan: Resoving, continue 1/2NS at 120 cc/hr; Status: Acute
--- NOTE | 2016-11-02 00:53 | CP.PCM.PN ---
Subjective - Date & Time of Evaluation Date of Evaluation: 11/02/16 Time of Evaluation: 00:51 - Subjective Subjective: SURGERY NOTE FOR DR. BRUCE 81F seen and examined at bedside. Resting comfortable. Patient is now able to sleep. Objective - Vital Signs/Intake and Output Vital Signs (last 24 hours): Temp Pulse Resp BP Pulse Ox 98.7 F 84 20 123/46 L 96 11/01/16 16:11 11/01/16 17:43 11/01/16 16:11 11/01/16 17:43 11/01/16 16:11 Intake and Output: 11/01/16 11/02/16 18:59 06:59 Intake Total 420 360 Output Total 600 250 Balance -180 110 - Medications Medications: Current Medications Allopurinol (Zyloprim) 100 mg PO DAILY [facility] Last Admin: 11/01/16 09:43 Dose: 100 mg Aspirin (Ecotrin) 81 mg PO DAILY [facility] Last Admin: 11/01/16 09:43 Dose: 81 mg Cholecalciferol (Vitamin D) 2,000 iu PO DAILY [facility] Last Admin: 11/01/16 09:43 Dose: 2,000 iu Clonazepam (Klonopin) 4 mg PO HS [facility] PRN Reason: Protocol Last Admin: 11/01/16 22:02 Dose: 4 mg Heparin Sodium (Porcine) (Heparin) 5,000 units SC Q8H [facility] PRN Reason: Protocol Last Admin: 11/01/16 22:02 Dose: 5,000 units Ceftriaxone Sodium (Rocephin 1 Gram Ivpb) 100 mls @ 100 mls/hr IVPB DAILY [facility] PRN Reason: Protocol Last Admin: 11/01/16 09:44 Dose: 100 mls/hr Sodium Chloride (Sodium Chloride 0.45%) 1,000 mls @ 120 mls/hr IV .Q8H20M [facility] Last Admin: 11/01/16 22:03 Dose: 120 mls/hr Isosorbide Mononitrate (Imdur) 30 mg PO DAILY [facility] Last Admin: 11/01/16 09:43 Dose: 30 mg Lorazepam (Ativan) 0.5 mg PO BID [facility] PRN Reason: Protocol Last Admin: 11/01/16 18:26 Dose: 0.5 mg Metoprolol Tartrate (Lopressor) 12.5 mg PO BID [facility] Last Admin: 11/01/16 17:43 Dose: Not Given Non-Formulary Medication (Selenium [Selenium]) 50 mcg PO DAILY [facility] Last Admin: 11/01/16 09:53 Dose: Not Given Pantoprazole Sodium (Protonix Ec Tab) 40 mg PO 0630 [facility] Last Admin: 11/01/16 05:46 Dose: 40 mg Rivastigmine (Exelon Cap) 4.5 mg PO BID [facility] Last Admin: 11/01/16 17:43 Dose: 4.5 mg Ropinirole HCl (Requip) 8 mg PO DAILY [facility] Last Admin: 11/01/16 09:43 Dose: 8 mg - Labs Labs: 11/01/16 07:29 11/01/16 07:29 PT 11.5 Seconds (9.9-11.8) 10/29/16 15:00 INR 1.06 (0.93-1.08) 10/29/16 15:00 APTT 25.8 Seconds (23.7-30.8) 10/29/16 15:00 - Constitutional Appears: Non-toxic, No Acute Distress - Head Exam Head Exam: ATRAUMATIC - Respiratory Exam Respiratory Exam: Clear to Ausculation Bilateral, NORMAL BREATHING PATTERN - Cardiovascular Exam Cardiovascular Exam: REGULAR RHYTHM, +S1, +S2 - GI/Abdominal Exam GI & Abdominal Exam: Soft. absent: Distended, Firm, Guarding, Rigid, Tenderness , Rebound - Exam Additional comments: feces in the power canister Assessment and Plan - Assessment and Plan (Free Text) Assessment: 81yo F with rectovaginal/rectovesicle fistula and chronic UTI - family still unsure about surgery and states Thursday too early to decide Further recs discuss with Dr. Juni Wilder, PGY1
[2016-11-02] MEDS: Pantoprazole 40 mg EC Tab PO SCH (06:00)
[2016-11-02 07:41] LABS: ADD MANUAL DIFF? NO
[2016-11-02 07:48] LABS: BASO # 0.01 K/mm3 (0.0-2.0); BASO % 0.1 % (0.0-3.0); EOS # 0.3 (0.0-0.7); EOS % 2.5 % (1.5-5.0); GRAN % 57.1 % (50.0-68.0); HEMATOCRIT 30.3 % (36.0-48.0); LYMPH # 3.1 (1.2-3.4); LYMPH % 30.8 % (22.0-35.0); MEAN CELL VOLUME 92.7 fL (80.0-105.0); MEAN CORPUSCULAR HGB CONC 32.3 g/dl (31.0-37.0); MEAN PLATELET VOLUME 9.4 fl (7.0-11.0); MONO % 9.5 % (1.0-6.0); PLATELET COUNT 218 10^3/uL (120.0-450.0); RED CELL DISTRIBUTION WIDTH 14.1 % (11.5-14.5); WHITE BLOOD COUNT 10.1 10^3/ul (4.5-11.0)
[2016-11-02 08:04] LABS: ALB/GLOB RATIO 0.8 (1.1-1.8); BILIRUBIN,DIRECT 0.4 mg/dL (0.0-0.4); BILIRUBIN,TOTAL 0.5 mg/dL (0.2-1.3); CALCIUM 7.4 mg/dL (8.4-10.5); POTASSIUM 3.6 mmol/L (3.6-5.0); TOTAL PROTEIN 6.6 g/dL (5.8-8.3)
[2016-11-02] MEDS: cefTRIAXone 1 gm 100 ML IVPB SCH (10:08)
[2016-11-02] MEDS: SELENIUM 50 MCG PO SCH (10:09)
--- NOTE | 2016-11-02 15:11 | PN ---
DATE: 11/02/2016 REASON FOR CONSULTATION AND FOLLOWUP: Hypertension, aortic stenosis, aortic regurgitation, mitral re gurgitation, colovesical fistula, cardiac clearance for preop surgery, risk stratification. 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 Cardiology consult was ca lled for cardiac clearance and risk stratification. The patient denies any chest pain, shortness of breath, any palpitation. The family, son and , is at the bedside. The patient is reading new spaper and denies any chest pain, awake and alert. PHYSICAL EXAMINATION: VITAL SIGNS: Temperature afebrile, heart rate , blood pressure 141/56. HEENT: PERRLA. Extraocular muscles intact. NECK: Supple. No carotid bruits. No thyromegaly. CHEST: Clear to auscultation. HEART: S1, S2 regular. ABDOMEN: Soft. EXTREMITIES: Clubbing, cyanosis negative. BLOOD WORKUP: WBC 10. , hemoglobin 9.8, hematocrit 30.3, platelet count 218. Chemistry shows so dium 142, potassium 3.6, chloride of 110, carbon dioxide 23, anion gap of 13, BUN 30, creatinine 1.2. IMPRESSION: Colovesical fistula, colovaginal fistula, preop evaluation and risk stratification for s urgery. Recent echo shows mild aortic stenosis, moderate aortic regurgitation, moderate mitral regur gitation, mild tricuspid regurgitation, preserved left ventricular function, hypertension, dementia. RECOMMENDATION: The patient would be high risk surgery, though patient does not have any anginal sym ptoms, no evidence of arrhythmia, no evidence of congestive heart failure, but overall because of com orbidities, patient would be high risk for surgery, but not absolute contraindication. Risk and bene fit ratio should be weighed for favored. If the patient is threatened life, cannot go long-term recu rrent urinary tract infection, can from the sepsis, so can be proceeded. Otherwise, if the cons ervative approach, we will try to treat conservatively because of underlying comorbidities. Discusse d at length with the son and the . We will follow with you. Thank you, Dr. Vargas, for providing us the opportunity in taking care of the patient. Bishop Jose MD cc: [id number] TT: 11/02/2016 15:10:19 Confirmation # [id number] Dictation # [id number]
[2016-11-02] MEDS: metroNIDAZOLE IV 500 mg/100 ml 100 ML IVPB SCH ×2 (15:21→22:25)
--- NOTE | 2016-11-02 16:05 | CP.PCM.PN ---
Subjective - Date & Time of Evaluation Date of Evaluation: 11/02/16 Time of Evaluation: 14:20 - Subjective Subjective: Comfortable on a chair, not in distress, no fevers overnight. Objective - Vital Signs/Intake and Output Vital Signs (last 24 hours): Temp Pulse Resp BP Pulse Ox 97.8 F 69 18 141/56 L 95 11/02/16 07:52 11/02/16 10:08 11/02/16 07:52 11/02/16 10:08 11/02/16 07:52 Intake and Output: 11/02/16 11/02/16 06:59 18:59 Intake Total 360 420 Output Total 550 300 Balance -190 120 - Medications Medications: Current Medications Allopurinol (Zyloprim) 100 mg PO DAILY [facility] Last Admin: 11/02/16 10:07 Dose: 100 mg Aspirin (Ecotrin) 81 mg PO DAILY [facility] Last Admin: 11/02/16 10:08 Dose: 81 mg Cholecalciferol (Vitamin D) 2,000 iu PO DAILY [facility] Last Admin: 11/02/16 10:07 Dose: 2,000 iu Clonazepam (Klonopin) 4 mg PO HS [facility] PRN Reason: Protocol Last Admin: 11/01/16 22:02 Dose: 4 mg Heparin Sodium (Porcine) (Heparin) 5,000 units SC Q8H [facility] PRN Reason: Protocol Last Admin: 11/02/16 11:48 Dose: 5,000 units Ceftriaxone Sodium (Rocephin 1 Gram Ivpb) 100 mls @ 100 mls/hr IVPB DAILY [facility] PRN Reason: Protocol Last Admin: 11/02/16 10:08 Dose: 100 mls/hr Sodium Chloride (Sodium Chloride 0.45%) 1,000 mls @ 120 mls/hr IV .Q8H20M [facility] Last Admin: 11/01/16 22:03 Dose: 120 mls/hr Metronidazole (Flagyl) 100 mls @ 100 mls/hr IVPB Q8 [facility] PRN Reason: Protocol Last Admin: 11/02/16 15:21 Dose: 100 mls/hr Isosorbide Mononitrate (Imdur) 30 mg PO DAILY [facility] Last Admin: 11/02/16 10:07 Dose: 30 mg Lorazepam (Ativan) 0.5 mg PO BID [facility] PRN Reason: Protocol Last Admin: 11/02/16 10:06 Dose: 0.5 mg Metoprolol Tartrate (Lopressor) 12.5 mg PO BID [facility] Last Admin: 11/02/16 10:08 Dose: 12.5 mg Non-Formulary Medication (Selenium [Selenium]) 50 mcg PO DAILY [facility] Last Admin: 11/02/16 10:09 Dose: Not Given Pantoprazole Sodium (Protonix Ec Tab) 40 mg PO 0630 [facility] Last Admin: 11/02/16 06:00 Dose: 40 mg Rivastigmine (Exelon Cap) 4.5 mg PO BID [facility] Last Admin: 11/02/16 10:08 Dose: 4.5 mg Ropinirole HCl (Requip) 8 mg PO DAILY [facility] Last Admin: 11/02/16 10:07 Dose: 8 mg - Labs Labs: 11/02/16 07:40 11/02/16 07:40 PT 11.5 Seconds (9.9-11.8) 10/29/16 15:00 INR 1.06 (0.93-1.08) 10/29/16 15:00 APTT 25.8 Seconds (23.7-30.8) 10/29/16 15:00 - Constitutional Appears: Non-toxic, No Acute Distress - Head Exam Head Exam: NORMAL INSPECTION - ENT Exam ENT Exam: Mucous Membranes Moist - Neck Exam Neck Exam: absent: Lymphadenopathy, Meningismus - Respiratory Exam Respiratory Exam: Decreased Breath Sounds - Cardiovascular Exam Cardiovascular Exam: +S1, +S2 - GI/Abdominal Exam GI & Abdominal Exam: Soft. absent: Tenderness Assessment and Plan - Assessment and Plan (Free Text) Plan: Assessment Systemic Inflammatory Response Syndrome, consider sepsis secondary to urinary tract infection in a patient with rectovesical fistula, growing E.coli, slowly improving chronic renal failure chronic CHF Parkinson's disease history of breast cancer history of rectovesical and rectovaginal fistula Plan continue Rocephin day 3; Surgery wants to add Flagyl because of the fistula from the rectum; follow up plan for surgery for the fistulas Will continue to monitor clinical response
--- NOTE | 2016-11-02 22:16 | CP.PCM.PN ---
Objective - Vital Signs/Intake and Output Vital Signs (last 24 hours): Temp Pulse Resp BP Pulse Ox 99 F 68 18 115/48 L 93 L 11/02/16 16:45 11/02/16 18:03 11/02/16 16:45 11/02/16 18:03 11/02/16 18:18 Intake and Output: 11/02/16 11/03/16 18:59 06:59 Intake Total 420 360 Output Total 300 200 Balance 120 160 - Medications Medications: Current Medications Allopurinol (Zyloprim) 100 mg PO DAILY [facility] Last Admin: 11/02/16 10:07 Dose: 100 mg Aspirin (Ecotrin) 81 mg PO DAILY [facility] Last Admin: 11/02/16 10:08 Dose: 81 mg Cholecalciferol (Vitamin D) 2,000 iu PO DAILY [facility] Last Admin: 11/02/16 10:07 Dose: 2,000 iu Clonazepam (Klonopin) 4 mg PO HS [facility] PRN Reason: Protocol Last Admin: 11/01/16 22:02 Dose: 4 mg Heparin Sodium (Porcine) (Heparin) 5,000 units SC Q8H [facility] PRN Reason: Protocol Last Admin: 11/02/16 11:48 Dose: 5,000 units Ceftriaxone Sodium (Rocephin 1 Gram Ivpb) 100 mls @ 100 mls/hr IVPB DAILY [facility] PRN Reason: Protocol Last Admin: 11/02/16 10:08 Dose: 100 mls/hr Sodium Chloride (Sodium Chloride 0.45%) 1,000 mls @ 120 mls/hr IV .Q8H20M [facility] Last Admin: 11/01/16 22:03 Dose: 120 mls/hr Metronidazole (Flagyl) 100 mls @ 100 mls/hr IVPB Q8 [facility] PRN Reason: Protocol Last Admin: 11/02/16 15:21 Dose: 100 mls/hr Isosorbide Mononitrate (Imdur) 30 mg PO DAILY [facility] Last Admin: 11/02/16 10:07 Dose: 30 mg Lorazepam (Ativan) 0.5 mg PO BID [facility] PRN Reason: Protocol Last Admin: 11/02/16 18:03 Dose: 0.5 mg Metoprolol Tartrate (Lopressor) 12.5 mg PO BID [facility] Last Admin: 11/02/16 18:03 Dose: Not Given Non-Formulary Medication (Selenium [Selenium]) 50 mcg PO DAILY [facility] Last Admin: 11/02/16 10:09 Dose: Not Given Pantoprazole Sodium (Protonix Ec Tab) 40 mg PO 0630 [facility] Last Admin: 11/02/16 06:00 Dose: 40 mg Rivastigmine (Exelon Cap) 4.5 mg PO BID [facility] Last Admin: 11/02/16 18:03 Dose: 4.5 mg Ropinirole HCl (Requip) 8 mg PO DAILY [facility] Last Admin: 11/02/16 10:07 Dose: 8 mg - Labs Labs: 11/02/16 07:40 11/02/16 07:40 PT 11.5 Seconds (9.9-11.8) 10/29/16 15:00 INR 1.06 (0.93-1.08) 10/29/16 15:00 APTT 25.8 Seconds (23.7-30.8) 10/29/16 15:00 Assessment and Plan (1) CKD (chronic kidney disease) stage 3, GFR 30-59 ml/min Status: Acute (2) Prerenal azotemia Status: Acute (3) Urinary tract infection Status: Acute (4) HTN (hypertension) Status: Acute (5) CHF (congestive heart failure) Status: Chronic (6) Hypernatremia Status: Acute
[2016-11-03 06:03] LABS: ADD MANUAL DIFF? NO
[2016-11-03] MEDS: Pantoprazole 40 mg EC Tab PO SCH (06:06)
[2016-11-03] MEDS: metroNIDAZOLE IV 500 mg/100 ml 100 ML IVPB SCH ×2 (06:06→13:01)
[2016-11-03 06:12] LABS: BASO # 0.01 K/mm3 (0.0-2.0); BASO % 0.1 % (0.0-3.0); EOS # 0.2 (0.0-0.7); EOS % 1.2 % (1.5-5.0); GRAN # 8.07 (1.4-6.5); GRAN % 63.4 % (50.0-68.0); HEMATOCRIT 30.9 % (36.0-48.0); LYMPH # 3.5 (1.2-3.4); LYMPH % 27.8 % (22.0-35.0); MEAN CELL VOLUME 91.4 fL (80.0-105.0); MEAN CORPUSCULAR HEMOGLOBIN 30.2 pg (25.0-35.0); MEAN PLATELET VOLUME 9.2 fl (7.0-11.0); MONO % 7.5 % (1.0-6.0); PLATELET COUNT 256 10^3/uL (120.0-450.0); RED CELL DISTRIBUTION WIDTH 14.1 % (11.5-14.5); WHITE BLOOD COUNT 12.7 10^3/ul (4.5-11.0)
[2016-11-03 07:01] LABS: ALB/GLOB RATIO 0.8 (1.1-1.8); ALKALINE PHOSPHATASE 55 U/L (38-133); ALT/SGPT 55 U/L (7-56); AST/SGOT 54 U/L (15-39); BILIRUBIN,DIRECT 0.4 mg/dL (0.0-0.4); BILIRUBIN,TOTAL 0.5 mg/dL (0.2-1.3); BLOOD UREA NITROGEN 30 mg/dL (7-21); CALCIUM 7.4 mg/dL (8.4-10.5); CARBON DIOXIDE 22 mmol/L (21-33); CHLORIDE 113 mmol/L (98-107); GFR AFRICAN-AMERICAN > 60; GLUCOSE,RANDOM 90 mg/dL (70-110); SODIUM 142 mmol/L (132-148)
--- NOTE | 2016-11-03 07:14 | CP.PCM.PN ---
Subjective - Date & Time of Evaluation Date of Evaluation: 11/02/16 Time of Evaluation: 10:45 - Subjective Subjective: Feels well, denies sob, tolerating diet; not confused today per family; Objective - Vital Signs/Intake and Output Vital Signs (last 24 hours): Temp Pulse Resp BP Pulse Ox 99 F 68 18 115/48 L 93 L 11/02/16 16:45 11/02/16 18:03 11/02/16 16:45 11/02/16 18:03 11/02/16 18:18 Intake and Output: 11/03/16 11/03/16 06:59 18:59 Intake Total 480 Output Total 550 Balance -70 - Medications Medications: Current Medications Allopurinol (Zyloprim) 100 mg PO DAILY [facility] Last Admin: 11/02/16 10:07 Dose: 100 mg Aspirin (Ecotrin) 81 mg PO DAILY [facility] Last Admin: 11/02/16 10:08 Dose: 81 mg Cholecalciferol (Vitamin D) 2,000 iu PO DAILY [facility] Last Admin: 11/02/16 10:07 Dose: 2,000 iu Clonazepam (Klonopin) 4 mg PO HS [facility] PRN Reason: Protocol Last Admin: 11/03/16 06:05 Dose: Not Given Heparin Sodium (Porcine) (Heparin) 5,000 units SC Q8H [facility] PRN Reason: Protocol Last Admin: 11/03/16 06:05 Dose: 5,000 units Ceftriaxone Sodium (Rocephin 1 Gram Ivpb) 100 mls @ 100 mls/hr IVPB DAILY [facility] PRN Reason: Protocol Last Admin: 11/02/16 10:08 Dose: 100 mls/hr Metronidazole (Flagyl) 100 mls @ 100 mls/hr IVPB Q8 [facility] PRN Reason: Protocol Last Admin: 11/03/16 06:06 Dose: 100 mls/hr Isosorbide Mononitrate (Imdur) 30 mg PO DAILY [facility] Last Admin: 11/02/16 10:07 Dose: 30 mg Lorazepam (Ativan) 0.5 mg PO BID [facility] PRN Reason: Protocol Last Admin: 11/02/16 18:03 Dose: 0.5 mg Metoprolol Tartrate (Lopressor) 12.5 mg PO BID [facility] Last Admin: 11/02/16 18:03 Dose: Not Given Non-Formulary Medication (Selenium [Selenium]) 50 mcg PO DAILY [facility] Last Admin: 11/02/16 10:09 Dose: Not Given Pantoprazole Sodium (Protonix Ec Tab) 40 mg PO 30 [facility] Last Admin: 11/03/16 06:06 Dose: 40 mg Rivastigmine (Exelon Cap) 4.5 mg PO BID [facility] Last Admin: 11/02/16 18:03 Dose: 4.5 mg Ropinirole HCl (Requip) 8 mg PO DAILY [facility] Last Admin: 11/02/16 10:07 Dose: 8 mg - Labs Labs: 11/03/16 06:00 11/03/16 06:00 PT 11.5 Seconds (9.9-11.8) 10/29/16 15:00 INR 1.06 (0.93-1.08) 10/29/16 15:00 APTT 25.8 Seconds (23.7-30.8) 10/29/16 15:00 - Constitutional Appears: Non-toxic, No Acute Distress - Head Exam Head Exam: NORMAL INSPECTION - Eye Exam Eye Exam: Normal appearance - ENT Exam ENT Exam: Mucous Membranes Moist - Neck Exam Neck Exam: Normal Inspection - Respiratory Exam Respiratory Exam: Clear to Ausculation Bilateral, NORMAL BREATHING PATTERN - Cardiovascular Exam Cardiovascular Exam: REGULAR RHYTHM Additional comments: systolic murmur - GI/Abdominal Exam GI & Abdominal Exam: Distended, Soft. absent: Tenderness - Exam Exam: absent: Bladder Distension - Neurological Exam Neurological Exam: Alert, Awake - Psychiatric Exam Psychiatric exam: Normal Mood Additional comments: somewhat flat affect - Skin Skin Exam: Normal Color, Warm Assessment and Plan (1) CKD (chronic kidney disease) stage 3, GFR 30-59 ml/min Assessment & Plan: Non-proteinuric kidney disease per UA; baseline serum creat appears lower than previously thought; urine random protein/creat ordered; Status: Chronic (2) Prerenal azotemia Assessment & Plan: Resolved; serum creat at plateau since past 2 days; will d/c IVF; Status: Resolved (3) Urinary tract infection Assessment & Plan: On ceftriaxone, no renal dose adjustment needed; Status: Acute (4) HTN (hypertension) Assessment & Plan: controlled, continue current meds; Status: Acute (5) CHF (congestive heart failure) Assessment & Plan: Not currently symptomatic, monitor; Status: Chronic (6) Hypernatremia Assessment & Plan: Will d/c IVF; Status: Resolved
[2016-11-03 08:37] VITALS: RESP 20
[2016-11-03 08:57] LABS: IRON 35 ug/dL (45-180)
--- NOTE | 2016-11-03 09:00 | PN ---
DATE: 11/01/2016 The patient is seen in room 572, bed 1, with patient's at bedside. The patient is lying in the bed in sitting up posture. The patient is awake, responsive, answers questions. Overnight nurse's notes were reviewed. The patient was found to be alert, awake, oriented. Episodic confusion and agitation was noted and combative with relative. The patient's Ramirez is in place. PHYSICAL EXAMINATION: VITAL SIGNS: T-max 99.1, pulse 69; blood pressure 137/52, 158/56, 134/45; respirations 20, O2 sat 94-95%. INTAKE AND OUTPUT: Intake yesterday 720 and output 1000. HEAD: Normocephalic, atraumatic. HEENT: Shows pinkish conjunctivae, anicteric sclerae. No oropharyngeal lesion. NECK: No neck rigidity. CHEST: Kyphosis. LUNGS: Shows occasional rhonchi, decreased breath sounds at the left base. CARDIOVASCULAR: Shows S1, S2, regular rhythm, positive systolic murmur left sternal border, right second intercostal space, left sternal border, left second intercostal space. ABDOMEN: Soft, positive bowel sounds. GENITALIA: Female. Positive Ramirez catheter. EXTREMITIES: Show trace swelling. No pitting edema, no calf tenderness, no Homans' sign. NEUROLOGIC: The patient is alert, awake, responsive, answers questions, is not able to ambulate. MUSCULOSKELETAL: Shows a body mass index of 23. CRANIAL NERVES: II-XII limited. GAIT: Not tested. DIAGNOSTICS: 11/01/2016: WBC 15.5, hemoglobin/hematocrit 10.2 and 31.5, platelet ____. Sodium 144, potassium 3.8, chloride 112, CO2 of 25, anion gap 11 , BUN 35, creatinine 1.2, GFR 52, glucose 90, calcium 7.8, magnesium 2.0, AST 64. Urine culture is growing Escherichia coli, pansensitive, resistant to Cipro. The patient had a repeat chest x-ray on 11/01/2016 which was no active disease, ordered by the carbon capture power plant operator. IMPRESSION: 1. Acute renal failure. 2. Questionable sepsis with leukocytosis, granulocytosis. 3. Normocytic anemia. 4. Hypertension. 5. History of dementia. 6. Leukocytosis with granulocytosis. 7. Normocytic anemia. 8. Transient hypernatremia. 9. Acute kidney injury and acute renal failure (resolving). 10. Severe gait dysfunction, deconditioning and possible functional quadriplegia. 11. Hyperuricemia. 12. Transaminitis. 13. Hyperprocalcitoninemia. 14. Hypovitaminosis D. 15. Acute renal failure and acute kidney injury. 16. Escherichia coli urinary tract infection with hematuria, pyuria, bacteriuria. 17. Systemic inflammatory response syndrome with possible sepsis secondary to Escherichia coli urinary tract infection with ____vaginal and ____ fistula. 18. Prerenal azotemia. 19. Chronic kidney disease, stage, IIIB, nonproteinuric. 20. Severe deconditioning and gait dysfunction. 21. Chronic ____, ____ fistula with Escherichia coli urinary tract infection. 22. Moderate aortic and moderate mitral regurgitation. 23. Mild mitral valve prolapse, calcified aortic valve with mild aortic stenosis and moderate aortic regurgitation and moderate mitral regurgitation and mild tricuspid regurgitation with left ventricular ejection fraction of 55%. 24. Gait dysfunction. 25. Deconditioning 26. Anxiety disorder. 27. Dementia. 28. Hypovitaminosis D. 29. Hyperuricemia. 1. Acute renal failure. 2. Questionable sepsis with leukocytosis and granulocytosis. 3. Normocytic anemia. 4. Questionable hemorrhagic cystitis. 5. Questionable hemorrhagic cystitis with intrinsic mural and perivesicular abnormalities and dependent echogenic material debris in the bladder. 6. Left bundle-branch block and left axis deviation. 7. Left lower lung pleural thickening. 8. Cardiomegaly. 9. Sigmoid diverticulosis. 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 11. 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 12. Status post hysterectomy. 13. Sigmoid diverticulosis. 14. Leukocytosis with granulocytosis. 15. Normocytic anemia. 16. Hyponatremia. 17. Slow-resolving acute renal failure. 18. Hyperuricemia. 19. History of dementia. 20. Deconditioning. 21. Gait dysfunction. 22. Recurrent fall. 23. Questionable functional quadriplegia. 24. Hypovitaminosis D. 25. History of dyslipidemia. 26. History of angina, history of hypertension, history of dementia. 1. Altered mental status, etiology undetermined. 2. Acute renal failure and acute kidney injury and prerenal kidney injury. 3. Questionable and possible urinary tract infection. 4. Recurrent fall and gait dysfunction. 5. History of dementia. 6. Questionable swallowing and feeding dysfunction. 7. Leukocytosis with granulocytosis. 8. Normocytic anemia. 9. Hyperuricemia. 10. Hyperphosphatemia. 11. Transaminitis. 12. Elevated BNP with history of congestive heart failure. 13. Hematuria, pyuria, bacteriuria. 14. Left bundle branch block and left axis deviation. 15. Generalized osteopenia and thoracolumbar spondylosis with old healed left rib fracture. 16. Status post mastectomy for left breast carcinoma. 17. Gait dysfunction. 18. Recurrent falls. 19. 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 20. Questionable cystitis with thickened urinary bladder wall. 21. Questionable echogenic urinary bladder mass. 22. History of dementia. 23. History of hypovitaminosis D, history of anxiety, history of dementia, history of congestive heart failure, history of angina, history of dementia. 24. History of colovesicular and colovaginal fistula. PLAN: At this time, serial labs ordered. CURRENT CONSULTATIONS: 1. Cardiology consultation. 2. GI consultation. 3. Infectious disease consultation. 4. Nephrology consultation noted. The patient's case is referred for TCU, social media analyst, discharge planning. CURRENT MEDICATIONS: 1. Selenium 50 mcg daily. 2. The patient's IV fluid is at 0.45 of normal saline at 120 mL an hour as per nephrology. 3. The patient is on Ativan 0.5 b.i.d. 4. Ecotrin 81 daily. 5. Exelon 4.5 mg twice a day. 6. Heparin 5000 subQ q.8. 7. Imdur 30 mg daily. 8. Klonopin 4 mg at bedtime. 9. Lopressor 12.5 twice a day. 10. Protonix 40 mg daily. 11. Requip 8 mg daily. 12. Klonopin 4 mg at bedtime as per the patient's family and pharmacy verification. 13. Rocephin 1 gram IV daily. 14. Vitamin D 2000 international units daily. 15. Zyloprim 100 mg daily. The patient is on a dysphagia modified consistently diet for moderate oropharyngeal dysphagia with moderate to high risk for aspiration. The patient has been ordered out of bed, physical therapy, ADRIANO stockings, SCDs, occupational therapy all ordered. The patient seen by physical therapist yesterday. The patient and the family declined physical therapy. The patient's condition, diagnosis discussed and explained to the patient and the patient's . At this time, the family is still undecided about surgical intervention which is recommended by Dr. Alfredo for colostomy. At present, patient will be continued on IV antibiotics and above treatment as ordered. Dictated and electronically signed; not read. Rigo Vargas MD cc: [id number] TT: 11/01/2016 15:54:39 Confirmation # [id number] Dictation # [id number] anali GUEVARA
[2016-11-03] MEDS: cefTRIAXone 1 gm 100 ML IVPB SCH (09:19)
[2016-11-03] MEDS: SELENIUM 50 MCG PO SCH (10:24)
[2016-11-03 13:08] LABS: FOLATE > 20.0 ng/mL
[2016-11-03 14:09] LABS: URINE BILIRUBIN NEGATIVE (NEGATIVE); URINE BLOOD LARGE (NEGATIVE); URINE GLUCOSE (UA) NEGATIVE (NEGATIVE); URINE KETONE TRACE mg/dL (NEGATIVE); URINE LEUKOCYTE ESTERASE LARGE Leu/uL (NEGATIVE); URINE PROTEIN TRACE mg/dL (<30 mg/dL); URINE UROBILINOGEN 0.2 E.U./dL (<1 E.U./dL)
[2016-11-03 14:11] LABS: URINE APPEARANCE CLOUDY (CLEAR); URINE COLOR YELLOW (YELLOW)
[2016-11-03 14:25] LABS: URINE WBC 15 - 20 /hpf (0-6)
[2016-11-03 14:26] LABS: URINE BACTERIA MANY (NEG)
[2016-11-03 16:04] VITALS: BP 129/46; PULSE 63; TEMP 98.5; O2SAT 92
--- NOTE | 2016-11-03 18:49 | PN ---
DATE: 11/03/2016 The patient is in bed in no acute distress, nontoxic. PHYSICAL EXAMINATION: VITAL SIGNS: Temperature is 98, blood pressure is 120/40, respiratory rate of 16. HEENT: Unremarkable. NECK: Supple. LUNGS: Have decreased breath sounds. HEART: Normal S1, S2. ABDOMEN: Soft, nontender. LABORATORY DATA: Reveals a white count of 12,700, hemoglobin of 10, BUN of 30, creatinine of 1.0. U rinalysis is noted. Microbiology reveals the urine had E. coli and relatively sensitive, sensitive t o ceftriaxone. Review of the orders reveals the patient to be on IV Flagyl and IV ceftriaxone. ASSESSMENT AND PLAN: This is an 81-year-old with sepsis with E. coli urinary tract infection as the source of sepsis, relatively sensitive in a patient with rectovesical fistula and chronic renal failu re, chronic congestive heart failure and currently on Rocephin day #3 and Flagyl for fistula; would r ecommend changing the Flagyl to p.o. for fistula if the patient is able to tolerate p.o. antibiotics and discontinue ceftriaxone within the next 24 hours. The patient is clinically weak and appears muc h older than her stated age. Austen Bradford MD cc: [id number] TT: 11/03/2016 18:48:49 Confirmation # [id number] Dictation # [id number] mn
--- NOTE | 2016-11-03 20:26 | PN ---
DATE: 11/03/2016 The patient is in room 572, bed 1. REASON FOR CONSULTATION AND FOLLOWUP: Hypertension, aortic stenosis, aortic regurgitation, mitral re gurgitation, colovesical fistula. 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 The patient denies chest pain , shortness of breath, palpitation. The patient lying flat in bed. PHYSICAL EXAMINATION: VITAL SIGNS: Blood pressure 129/46, respirations 20, pulse 63, temperature 98.5. HEAD: Normocephalic. EYES: Pupils normal. Conjunctivae slightly pale. NECK: JVP low. Carotid equal. THORAX: AP diameter normal. LUNGS: Clear. CARDIOVASCULAR: S1, S2, systolic murmur, no rub. ABDOMEN: Soft, nontender, no organomegaly. Bowel sounds normal. EXTREMITIES: No clubbing, no cyanosis. LABORATORY DATA: WBC 12.7, hemoglobin 10.2, hematocrit 30.9, platelet 256. Sodium 142, potassium 4. 0, BUN 30, creatinine 1.0, magnesium 2.0, AST 54, ALT 55, total protein 7.0, albumin 3.1. DIAGNOSES: Colovesical fistula, colovaginal fistula, mild aortic stenosis, moderate aortic regurgita tion, moderate mitral regurgitation, mild tricuspid regurgitation, preserved ventricular function on recent echo, hypertension, dementia. PLAN: Had a detailed discussion with the patient and her and the son, they have decided not to opt for surgery and treat her with medical therapy, so we will suggest to continue present therapy and we will follow with you. Bishop Peoples MD cc: [id number] TT: 11/03/2016 20:25:10 Confirmation # [id number] Dictation # [id number] william
--- NOTE | 2016-11-03 21:30 | PN ---
DATE: 11/03/2016 An 81-year-old female with history of CKD, hypertension, and chronic rectovaginal fistulas, was admit jeronimo with UTI, sepsis, and acute renal failure. The patient today reports feeling well, reporting cou gh that started this morning, nonproductive, otherwise no shortness of breath. Tolerating diet well. VITAL SIGNS: This afternoon, blood pressure 129/46, heart rate 63, respirations 20, temperature 98.5 , O2 sat 92% on room air. GENERAL: No distress, able to speak clearly and incoherently in full sentences. HEENT: Moist mucous membranes. Nonicteric. CHEST: Clear to auscultation bilaterally. No rales. No rhonchi. No wheezes. HEART: Soft systolic murmur. No elevation of JVD. ABDOMEN: Soft, nontender, mildly distended. EXTREMITIES: No leg edema. LABORATORY DATA: This morning, CBC: WBC 12.7, hemoglobin 10.2, hematocrit 30.9, platelets 256. Naomi charmaine panel: Sodium 142, potassium 4.0, chloride 113, bicarbonate 22, BUN 30, creatinine 1.0. Calc ium 7.4, iron 35, TIBC 194, iron saturation 18%, albumin 3.1. UA: Trace protein, large leukocyte es terase, many bacteria, 15-20 WBCs. ASSESSMENT: 1. Acute renal failure, prerenal azotemia in the setting of urinary tract infection with increased u rinary frequency, resolved. Serum creatinine lower than previously thought baseline, today at 1.0. We will decrease IV fluids as BUN is still awaited. 2. Chronic kidney disease, stage II/IIIA. No proteinuria per urinalysis. We will check urine, rand om protein, and creatinine. 3. Urinary tract infection on ceftriaxone. No renal dose adjustment needed. 4. Hypertension, controlled. Continue current meds. Currently on metoprolol 12.5 mg b.i.d. and Imd ur 30 mg daily. 5. Hypernatremia, resolving. Decreasing half NS to 60 mL per hour. Wally Ash MD cc: [id number] TT: 11/03/2016 21:29:34 Confirmation # [id number] Dictation # [id number] tn
--- NOTE | 2016-11-03 21:34 | DS ---
The patient has been accepted into TCU for IV antibiotic and rehab skills. The patient is seen lying in the bed. The patient is alert, awake and responsive. The patient's is present on the floor. Overnight nurse's notes were reviewed. The patient was seen. PHYSICAL EXAMINATION: VITAL SIGNS: The patient's T-max is 98.5, pulse 63, blood pressure 129/46, respirations 20 and O2 sat is around mid-90s. INTAKE AND OUTPUT: Output is documented only as 800 mL. HEAD: Normocephalic and atraumatic. HEENT: Shows pinkish, pale conjunctivae and anicteric sclerae. No oropharyngeal lesion. NECK: No neck rigidity. CHEST: Kyphosis. LUNGS: Shows questionable decreased breath sounds at the bases. CARDIOVASCULAR: S1, S2, regular rhythm. Questionable positive systolic murmur , left sternal border, left second intercostal space and right second intercostal space. ABDOMEN: Soft, positive bowel sounds. GENITALIA: Female. Positive Ramirez catheter. EXTREMITIES: Shows positive ADRIANO stockings. Trace swelling, no pitting edema, no calf tenderness and no Homans sign. MUSCULOSKELETAL: Shows a body mass index of 23. NEUROLOGIC: Cranial nerves II-XII limited. Gait examination: The patient is lying in the bed. The patient is alert, awake and responsive. PSYCHIATRIC: Positive for history of anxiety and dementia. DIAGNOSTIC STUDIES: On 11/03/2016, WBC 12.7, hemoglobin and hematocrit 10.2 and 31 and platelets 256. Sodium 142, potassium 4.0, chloride 113, CO2 of 22, anion gap 11, BUN 30, creatinine 1.0, GFR greater than 60, glucose 90 and calcium 7.4. Iron 35, TIBC 194, saturation 19, AST 54 and B12 is 739. Folate greater than 20. Urine cultures: E. coli, which is resistant to ampicillin and Cipro, otherwise it is sensitive to . FINAL IMPRESSION, PLAN AND DISCHARGE DIAGNOSES: 1. Acute renal failure. 2. Systemic inflammatory response syndrome versus possible sepsis secondary to Escherichia coli urinary tract infection. 3. Colovesicular and colovaginal fistula. 4. Acute renal failure. 5. Poor compliance. 6. Severe gait deconditioning and severe gait dysfunction and bedridden status. 7. Functional quadriplegia. 8. Transient asymptomatic hypoxemia. 9. Leukocytosis with granulocytosis. 10. Normocytic iron deficiency anemia. 11. Transient hypernatremia. 12. Acute renal failure. 13. Hyperuricemia. 14. Transaminitis. 15. . 16. Hyperuricemia. 17. Iron deficiency normocytic anemia. 18. Escherichia coli urinary tract infection with proteinuria, hematuria, bacteriuria and pyuria. 19. Sepsis secondary to Escherichia coli urinary tract infection. 20. Mild aortic stenosis. 21. Moderate aortic regurgitation, moderate mitral regurgitation and mild tricuspid regurgitation. 22. History of anxiety disorder, history of dementia, history of hypovitaminosis D and hyperuricemia. 1. Acute renal failure. 2. Questionable sepsis with leukocytosis, granulocytosis. 3. Normocytic anemia. 4. Hypertension. 5. History of dementia. 6. Leukocytosis with granulocytosis. 7. Normocytic anemia. 8. Transient hypernatremia. 9. Acute kidney injury and acute renal failure (resolving). 10. Severe gait dysfunction, deconditioning and possible functional quadriplegia. 11. Hyperuricemia. 12. Transaminitis. 13. Hyperprocalcitoninemia. 14. Hypovitaminosis D. 15. Acute renal failure and acute kidney injury. 16. Escherichia coli urinary tract infection with hematuria, pyuria, bacteriuria. 17. Systemic inflammatory response syndrome with possible sepsis secondary to Escherichia coli urinary tract infection with ____vaginal and ____ fistula. 18. Prerenal azotemia. 19. Chronic kidney disease, stage, IIIB, nonproteinuric. 20. Severe deconditioning and gait dysfunction. 21. Chronic ____, ____ fistula with Escherichia coli urinary tract infection. 22. Moderate aortic and moderate mitral regurgitation. 23. Mild mitral valve prolapse, calcified aortic valve with mild aortic stenosis and moderate aortic regurgitation and moderate mitral regurgitation and mild tricuspid regurgitation with left ventricular ejection fraction of 55%. 24. Gait dysfunction. 25. Deconditioning 26. Anxiety disorder. 27. Dementia. 28. Hypovitaminosis D. 29. Hyperuricemia. 1. Acute renal failure. 2. Questionable sepsis with leukocytosis and granulocytosis. 3. Normocytic anemia. 4. Questionable hemorrhagic cystitis. 5. Questionable hemorrhagic cystitis with intrinsic mural and perivesicular abnormalities and dependent echogenic material debris in the bladder. 6. Left bundle-branch block and left axis deviation. 7. Left lower lung pleural thickening. 8. Cardiomegaly. 9. Sigmoid diverticulosis. 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 11. 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 12. Status post hysterectomy. 13. Sigmoid diverticulosis. 14. Leukocytosis with granulocytosis. 15. Normocytic anemia. 16. Hyponatremia. 17. Slow-resolving acute renal failure. 18. Hyperuricemia. 19. History of dementia. 20. Deconditioning. 21. Gait dysfunction. 22. Recurrent fall. 23. Questionable functional quadriplegia. 24. Hypovitaminosis D. 25. History of dyslipidemia. 26. History of angina, history of hypertension, history of dementia. 1. Altered mental status, etiology undetermined. 2. Acute renal failure and acute kidney injury and prerenal kidney injury. 3. Questionable and possible urinary tract infection. 4. Recurrent fall and gait dysfunction. 5. History of dementia. 6. Questionable swallowing and feeding dysfunction. 7. Leukocytosis with granulocytosis. 8. Normocytic anemia. 9. Hyperuricemia. 10. Hyperphosphatemia. 11. Transaminitis. 12. Elevated BNP with history of congestive heart failure. 13. Hematuria, pyuria, bacteriuria. 14. Left bundle branch block and left axis deviation. 15. Generalized osteopenia and thoracolumbar spondylosis with old healed left rib fracture. 16. Status post mastectomy for left breast carcinoma. 17. Gait dysfunction. 18. Recurrent falls. 19. 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 20. Questionable cystitis with thickened urinary bladder wall. 21. Questionable echogenic urinary bladder mass. 22. History of dementia. 23. History of hypovitaminosis D, history of anxiety, history of dementia, history of congestive heart failure, history of angina, history of dementia. 24. History of colovesicular and colovaginal fistula. The patient is accepted into TCU for IV antibiotic and rehab skills. DISCHARGE MEDICATIONS: The patient is going to be discharged on the following medications: 1. Ativan 0.5 mg twice a day. 2. Ecotrin 81 mg daily. 3. Exelon 4.5 mg p.o. twice a day. 4. Flagyl 500 mg IV q. 8. 5. Heparin 5000 subcu q. 8. 6. Imdur 30 mg daily. 7. Venofer 200 mg daily x 3 doses. 8. Klonopin 4 mg at bedtime. 9. Lopressor 12.5 twice a day. 10. Protonix 40 mg daily. 11. Requip 8 mg daily. 12. Rocephin 1 gram IV daily. 13. Selenium 50 mcg p.o. daily. 14. The patient is on half normal saline at 120 mL an hour. 15. Vitamin D3 2000 international units daily. 16. Allopurinol 100 mg daily. The patient is to be discharged to TCU under Dr. Vargas's service. DISCHARGE MEDICATIONS: As per dictated MAR. Time spent in the entire discharge process more than 45 minutes. During this hospitalization, the patient, the patient's and son have been extensively explained about the details of her medical condition by me and all the physicians involved in the care of the patient on a daily basis. The patient was seen by surgery. The patient was seen by gastroenterology. The patient was seen by nephrology, infectious disease and cardiology. All of the above have explained to the patient and the patient's family about the patient' s high risk for surgical procedure and intervention. The patient and the patient's and the son declined any surgical intervention and are requesting conservative treatment for the patient. Dictated and electronically signed. Rigo Vargas MD cc: [id number] TT: 11/03/2016 21:33:37 sn MTDD
--- NOTE | 2016-11-03 23:32 | PN ---
DATE: 11/02/2016 The patient was seen lying in the bed in room 572, bed 1. The patient's overnight nurse's notes were reviewed. The patient rested comfortably in the bed. The patient refused out of bed. The patient slept well. The patient had episodic lethargy. The patient continued to have a Ramirez catheter placed. PHYSICAL EXAMINATION: VITAL SIGNS: T-max is 99.1 to 98.7. Heart rate is 84 to 65. Blood pressure is 123/56, 156/70, 141/56. Respiration 18-20, O2 sat has been around 92, 95, 96. Intake/Output: Does not appear to be accurate. HEAD: Normocephalic, atraumatic. HEENT: Shows pinkish, pale conjunctivae, anicteric sclerae. No oropharyngeal lesion. NECK: No neck rigidity. CHEST: Kyphosis. LUNGS: Shows occasional rales, rhonchi upper lung walls anteriorly. CARDIOVASCULAR: S1, S2. Positive systolic murmur left sternal border, left second intercostal space, right second intercostal space. ABDOMEN: Soft, positive bowel sounds. GENITALIA: Female. Positive Ramirez catheter. EXTREMITIES: Shows trace swelling of the lower extremity. Positive ADRIANO stockings. MUSCULOSKELETAL: Shows a body mass index of 23. Cranial nerves II-XII limited. GAIT: Could not be tested as the patient is lying in the bed. NEUROLOGIC: The patient is alert, awake, responsive, follows commands. The patient refuses to be out of bed to chair. DIAGNOSTICS: On 11/02, WBC is down to 10.1, hemoglobin and hematocrit 9.8/30.3 , platelet 218. Sodium 142, potassium 3.6, chloride 110, CO2 of 23, anion gap 13, BUN 30, creatinine 1.2, GFR 52. Glucose 79, calcium 7.4, albumin 2.9, AST 60. Urine culture Escherichia coli. The patient's chest x-ray from 11/01 was noted. IMPRESSION AND PLAN: 1. Acute renal failure. 2. Transient episodic hypotension. 3. Transient episodic hypoxemia. 4. Poor compliance. 5. Severe gait dysfunction and bedridden status and severe deconditioning with possible functional quadriplegia. 6. Leukocytosis with granulocytosis. 7. Normocytic anemia. 8. Status post acute renal failure. 9. Hypocalcemia. 10. Transaminitis. 11. Hypoalbuminemia. 12. Hyperprocalcitoninemia. 13. Escherichia coli urinary tract infection with proteinuria, hematuria, pyuria, bacteriuria. 14. History of dementia. 15. Systemic inflammatory response syndrome with possible sepsis secondary to Escherichia coli urinary tract infection. 16. Colovesical and colovaginal fistula. 17. History of Parkinson's disease. 18. History of breast carcinoma. 19. Severe deconditioning. 20. Gait dysfunction. 21. Mild aortic stenosis, moderate aortic regurgitation, moderate mitral regurgitation and mild tricuspid regurgitation with left ventricular ejection fraction of 55%. 22. Dementia with questionable behavioral disorder. 23. History of hypertension. 1. Acute renal failure. 2. Systemic inflammatory response syndrome versus possible sepsis secondary to Escherichia coli urinary tract infection. 3. Colovesicular and colovaginal fistula. 4. Acute renal failure. 5. Poor compliance. 6. Severe gait deconditioning and severe gait dysfunction and bedridden status. 7. Functional quadriplegia. 8. Transient asymptomatic hypoxemia. 9. Leukocytosis with granulocytosis. 10. Normocytic iron deficiency anemia. 11. Transient hypernatremia. 12. Acute renal failure. 13. Hyperuricemia. 14. Transaminitis. 15. . 16. Hyperuricemia. 17. Iron deficiency normocytic anemia. 18. Escherichia coli urinary tract infection with proteinuria, hematuria, bacteriuria and pyuria. 19. Sepsis secondary to Escherichia coli urinary tract infection. 20. Mild aortic stenosis. 21. Moderate aortic regurgitation, moderate mitral regurgitation and mild tricuspid regurgitation. 22. History of anxiety disorder, history of dementia, history of hypovitaminosis D and hyperuricemia. 1. Acute renal failure. 2. Questionable sepsis with leukocytosis, granulocytosis. 3. Normocytic anemia. 4. Hypertension. 5. History of dementia. 6. Leukocytosis with granulocytosis. 7. Normocytic anemia. 8. Transient hypernatremia. 9. Acute kidney injury and acute renal failure (resolving). 10. Severe gait dysfunction, deconditioning and possible functional quadriplegia. 11. Hyperuricemia. 12. Transaminitis. 13. Hyperprocalcitoninemia. 14. Hypovitaminosis D. 15. Acute renal failure and acute kidney injury. 16. Escherichia coli urinary tract infection with hematuria, pyuria, bacteriuria. 17. Systemic inflammatory response syndrome with possible sepsis secondary to Escherichia coli urinary tract infection with ____vaginal and ____ fistula. 18. Prerenal azotemia. 19. Chronic kidney disease, stage, IIIB, nonproteinuric. 20. Severe deconditioning and gait dysfunction. 21. Chronic ____, ____ fistula with Escherichia coli urinary tract infection. 22. Moderate aortic and moderate mitral regurgitation. 23. Mild mitral valve prolapse, calcified aortic valve with mild aortic stenosis and moderate aortic regurgitation and moderate mitral regurgitation and mild tricuspid regurgitation with left ventricular ejection fraction of 55%. 24. Gait dysfunction. 25. Deconditioning 26. Anxiety disorder. 27. Dementia. 28. Hypovitaminosis D. 29. Hyperuricemia. 1. Acute renal failure. 2. Questionable sepsis with leukocytosis and granulocytosis. 3. Normocytic anemia. 4. Questionable hemorrhagic cystitis. 5. Questionable hemorrhagic cystitis with intrinsic mural and perivesicular abnormalities and dependent echogenic material debris in the bladder. 6. Left bundle-branch block and left axis deviation. 7. Left lower lung pleural thickening. 8. Cardiomegaly. 9. Sigmoid diverticulosis. 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 11. 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 12. Status post hysterectomy. 13. Sigmoid diverticulosis. 14. Leukocytosis with granulocytosis. 15. Normocytic anemia. 16. Hyponatremia. 17. Slow-resolving acute renal failure. 18. Hyperuricemia. 19. History of dementia. 20. Deconditioning. 21. Gait dysfunction. 22. Recurrent fall. 23. Questionable functional quadriplegia. 24. Hypovitaminosis D. 25. History of dyslipidemia. 26. History of angina, history of hypertension, history of dementia. 1. Altered mental status, etiology undetermined. 2. Acute renal failure and acute kidney injury and prerenal kidney injury. 3. Questionable and possible urinary tract infection. 4. Recurrent fall and gait dysfunction. 5. History of dementia. 6. Questionable swallowing and feeding dysfunction. 7. Leukocytosis with granulocytosis. 8. Normocytic anemia. 9. Hyperuricemia. 10. Hyperphosphatemia. 11. Transaminitis. 12. Elevated BNP with history of congestive heart failure. 13. Hematuria, pyuria, bacteriuria. 14. Left bundle branch block and left axis deviation. 15. Generalized osteopenia and thoracolumbar spondylosis with old healed left rib fracture. 16. Status post mastectomy for left breast carcinoma. 17. Gait dysfunction. 18. Recurrent falls. 19. 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 20. Questionable cystitis with thickened urinary bladder wall. 21. Questionable echogenic urinary bladder mass. 22. History of dementia. 23. History of hypovitaminosis D, history of anxiety, history of dementia, history of congestive heart failure, history of angina, history of dementia. 24. History of colovesicular and colovaginal fistula. PLAN: At this time, the patient is to be continued on medications and treatment as per the medication list. The patient is currently being followed by infectious disease, cardiology, nephrology and surgery. The patient's current medications are as per MAR. I have discussed the treatment plan, the patient's diagnostic test results and recommendation by all the physicians involved in the care of the patient with the patient and the spouse at length. The patient's spouse at present does not wish to pursue surgical options regarding the treatment of colovesical and colovaginal fistula. The patient's declined colostomy. The patient's was also advised about discharge planning. The patient's appears to be interested in TCU if the patient is accepted. The patient's was also advised about the possible long-term placement of Ramirez catheter to avoid complications secondary to urinary incontinence and complications of colovesical and colovaginal fistula. The patient and the patient's were explained about the details at length. All questions and concerns answered , which she acknowledged and understood. Dictated, electronically signed, not read. Rigo Vargas MD cc: [id number] TT: 11/02/2016 23:32:13 Confirmation # [id number] Dictation # [id number] anali GUEVARA
[2016-11-04 07:22] LABS: CREATININE, RANDOM URINE 72 mg/dL (20-320)
--- NOTE | 2016-11-28 08:09 | PN ---
DATE: 10/31/2016 The patient is seen in room 572, bed 1. PHYSICAL EXAMINATION: VITAL SIGNS: T-max is 98.3 ____. Heart rate is 65-69. Blood pressure is 137/ 45, 127/44, 114/42. Respiration 18-20. O2 sat is 95, 94, 93%. INTAKE AND OUTPUT: Intake 720, output is 1000. HEAD: Normocephalic, atraumatic. HEENT: Shows pinkish, pale conjunctivae; anicteric sclerae. NECK: Positive kyphosis. Questionable soft carotid bruit. LUNGS: Shows decreased breath sound left base. Occasional rhonchi upper lung field. CARDIOVASCULAR: S1, S2, regular rhythm. Positive systolic murmur. ABDOMEN: Soft, positive bowel sounds. Positive Ramirez catheter. EXTREMITIES: Shows no calf tenderness. Trace swelling of the lower extremity. NEUROLOGIC: The patient is alert, awake, responsive, lying in the bed. PSYCHIATRIC: History of dementia. History of anxiety. DIAGNOSTICS: 10/31/2016: WBC 12.3, hemoglobin and hematocrit are 10 and 31.1, platelets 250. Chemistry shows sodium 147, potassium 3.9, chloride 113, CO2 of 26, anion gap 12, BUN 55, creatinine 1.5, GFR ____, glucose 91, calcium 8.5, magnesium 2.1. AST 43. The patient's urine culture from 10/29/2016 growing Escherichia coli. IMPRESSION: 1. Acute renal failure. 2. Questionable sepsis with leukocytosis, granulocytosis. 3. Questionable and possible functional quadriplegia with bedridden status and severe deconditioning. 4. Kyphosis. 5. Transient hypotension. 6. Hypoxemia. 7. Recurrent persistent leukocytosis. 8. Normocytic anemia. 9. Acute kidney injury with underlying chronic kidney disease, stage III. 10. Transaminitis. 11. Status post hypernatremia. 12. Escherichia coli urinary tract infection. 13. Severe deconditioning. 14. Gait dysfunction. 15. Questionable hemorrhagic cystitis with intrinsic mural and perivesicular abnormalities and dependent echogenic material and debris in the bladder. 16. Left bundle branch block and left axis deviation. 1. Acute renal failure. 2. Questionable sepsis with leukocytosis and granulocytosis. 3. Normocytic anemia. 4. Questionable hemorrhagic cystitis. 5. Questionable hemorrhagic cystitis with intrinsic mural and perivesicular abnormalities and dependent echogenic material debris in the bladder. 6. Left bundle-branch block and left axis deviation. 7. Left lower lung pleural thickening. 8. Cardiomegaly. 9. Sigmoid diverticulosis. 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 11. 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 12. Status post hysterectomy. 13. Sigmoid diverticulosis. 14. Leukocytosis with granulocytosis. 15. Normocytic anemia. 16. Hyponatremia. 17. Slow-resolving acute renal failure. 18. Hyperuricemia. 19. History of dementia. 20. Deconditioning. 21. Gait dysfunction. 22. Recurrent fall. 23. Questionable functional quadriplegia. 24. Hypovitaminosis D. 25. History of dyslipidemia. 26. History of angina, history of hypertension, history of dementia. 1. Altered mental status, etiology undetermined. 2. Acute renal failure and acute kidney injury and prerenal kidney injury. 3. Questionable and possible urinary tract infection. 4. Recurrent fall and gait dysfunction. 5. History of dementia. 6. Questionable swallowing and feeding dysfunction. 7. Leukocytosis with granulocytosis. 8. Normocytic anemia. 9. Hyperuricemia. 10. Hyperphosphatemia. 11. Transaminitis. 12. Elevated BNP with history of congestive heart failure. 13. Hematuria, pyuria, bacteriuria. 14. Left bundle branch block and left axis deviation. 15. Generalized osteopenia and thoracolumbar spondylosis with old healed left rib fracture. 16. Status post mastectomy for left breast carcinoma. 17. Gait dysfunction. 18. Recurrent falls. 19. 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 20. Questionable cystitis with thickened urinary bladder wall. 21. Questionable echogenic urinary bladder mass. 22. History of dementia. 23. History of hypovitaminosis D, history of anxiety, history of dementia, history of congestive heart failure, history of angina, history of dementia. 24. History of colovesicular and colovaginal fistula. PLAN: At this time, patient will be continued on the therapeutic intervention as per the MAR of today. The patient will be ordered out of bed to recliner. The patient's overall prognosis is guarded to poor, which has been discussed and explained to the patient's son and spouse on multiple occasions during this hospitalization. The patient's further management will be dependent upon the above. Dictated and electronically signed; not read. Rigo Vargas MD cc: [id number] TT: 10/31/2016 16:37:47 Confirmation # [id number] Dictation # [id number] anali GUEVARA
== END 2016-11-03 19:07 | DRG 871 ==
LOC: ED 14:13 → ERH 17:04 → 5RSO 20:51
PROVIDERS: ADMIT Internal Medicine; ATTEND Internal Medicine
DX: A41.51 Sepsis due to Escherichia coli [E. coli] (principal); R53.2 Functional quadriplegia; N17.9 Acute kidney failure, unspecified; E87.0 Hyperosmolality and hypernatremia; E88.09 Other disorders of plasma-protein metabolism, not elsewhere classified; I42.0 Dilated cardiomyopathy; I13.0 Hypertensive heart and chronic kidney disease with heart failure and stage 1 through stage 4 chronic kidney disease, or unspecified chronic kidney disease; I50.22 Chronic systolic (congestive) heart failure; N32.1 Vesicointestinal fistula; N82.3 Fistula of vagina to large intestine; N39.0 Urinary tract infection, site not specified; I08.3 Combined rheumatic disorders of mitral, aortic and tricuspid valves; E83.39 Other disorders of phosphorus metabolism; E55.9 Vitamin D deficiency, unspecified; D50.9 Iron deficiency anemia, unspecified; E78.5 Hyperlipidemia, unspecified; E83.51 Hypocalcemia; N18.3 Chronic kidney disease, stage 3 (moderate); E79.0 Hyperuricemia without signs of inflammatory arthritis and tophaceous disease; F02.80 Dementia in other diseases classified elsewhere, unspecified severity, without behavioral disturbance, psychotic disturbance, mood disturbance, and anxiety; G30.9 Alzheimer's disease, unspecified; F41.9 Anxiety disorder, unspecified; G20 Parkinson's disease; I44.7 Left bundle-branch block, unspecified; K57.30 Diverticulosis of large intestine without perforation or abscess without bleeding; Z74.01 Bed confinement status; R09.02 Hypoxemia; R74.0 Nonspecific elevation of levels of transaminase and lactic acid dehydrogenase [LDH]; I35.0 Nonrheumatic aortic (valve) stenosis; E86.0 Dehydration; R15.9 Full incontinence of feces; R53.81 Other malaise; M85.80 Other specified disorders of bone density and structure, unspecified site; M47.815 Spondylosis without myelopathy or radiculopathy, thoracolumbar region; Z87.81 Personal history of (healed) traumatic fracture; Z85.3 Personal history of malignant neoplasm of breast; Z90.12 Acquired absence of left breast and nipple; Z91.81 History of falling; G31.89 Other specified degenerative diseases of nervous system; N30.91 Cystitis, unspecified with hematuria; N32.9 Bladder disorder, unspecified; Z68.23 Body mass index [BMI] 23.0-23.9, adult

== ENCOUNTER 2016-11-03 18:42 | Inpatient (IN) | payer OTHER, MEDICARE ==
--- NOTE | 2016-11-03 20:52 | CP.PCM.PCO ---
Physician Communication Note - Physician Communication Note Physician Communication Note: Rec Ffzkmdhqg-ytzdu-bzkmuxo/vaginal fistuls/ Colostomy refused by family
[2016-11-03] MEDS: Sodium Chloride 0.45% 1,000 ML IV SCH (21:58)
[2016-11-03 22:12] VITALS: BMI 28.0
[2016-11-03] MEDS ORDERED: Pneumococcal 23-Valent Vaccine IM ONE (22:12)
[2016-11-04] MEDS: cefTRIAXone 1 gm 100 ML IVPB SCH (05:17)
[2016-11-04] MEDS: Pantoprazole 40 mg EC Tab PO SCH (06:12)
[2016-11-04 07:44] LABS: ADD MANUAL DIFF? NO
[2016-11-04 08:03] LABS: BASO # 0.03 K/mm3 (0.0-2.0); BASO % 0.3 % (0.0-3.0); EOS # 0.2 (0.0-0.7); EOS % 1.6 % (1.5-5.0); GRAN # 6.03 (1.4-6.5); HEMATOCRIT 27.9 % (36.0-48.0); LYMPH # 2.9 (1.2-3.4); LYMPH % 28.6 % (22.0-35.0); MEAN CELL VOLUME 91.8 fL (80.0-105.0); MEAN CORPUSCULAR HEMOGLOBIN 29.9 pg (25.0-35.0); MEAN CORPUSCULAR HGB CONC 32.6 g/dl (31.0-37.0); MEAN PLATELET VOLUME 9.5 fl (7.0-11.0); MONO % 9.5 % (1.0-6.0); PLATELET COUNT 247 10^3/uL (120.0-450.0); RED CELL DISTRIBUTION WIDTH 14.4 % (11.5-14.5); WHITE BLOOD COUNT 10.1 10^3/ul (4.5-11.0)
[2016-11-04 08:20] LABS: ALB/GLOB RATIO 0.8 (1.1-1.8); BILIRUBIN,DIRECT 0.4 mg/dL (0.0-0.4); BILIRUBIN,TOTAL 0.4 mg/dL (0.2-1.3); MAGNESIUM 1.9 mg/dL (1.7-2.2); POTASSIUM 3.6 mmol/L (3.6-5.0); TOTAL PROTEIN 5.9 g/dL (5.8-8.3)
[2016-11-04] MEDS ORDERED: Iron Sucrose 100 mg/5 ml Inj IVPB SCH (10:00)
[2016-11-04] MEDS ORDERED: SELENIUM 50 MCG PO SCH (10:00)
--- NOTE | 2016-11-04 10:43 | HP ---
Formerly [facility] [address] [place] [address] Health Information Management History and Physical Report : [id number] Draft Patient: ABDULKADIR NORRIS : 1935 Age/Sex: 81 / F Copied To: Attending MD: Rigo Vargas MD HISTORY OF PRESENT ILLNESS: The patient is an 81-year-old homebound patient of Dr. Rene Finn who was brought to the Emergency Room today with the patient's son and the . The patient was brought to the Emergency Room by [facility] ambulance. According to the patient's son and the , the patient has been having some symptoms of urinary tract infection for which the patient has been put on Levaquin for 2 months as per the patient's family. According to the patient's son, the patient has been weak. The patient has been falling and has been confused. The patient was advised by the PMD to come to the Emergency Room for evaluation. According to the ER physician evaluation note, the patient evaluation of urinary tract infection. The patient, according to the son, has been urinating more frequently and also having frequent bowel movements. The patient was found also reported to be weak and confused, which has been worsening since the last 2 weeks, but more worse in the last 3 days. The patient fell a couple of times and difficulty walking and also the patient hit her head against the wall, but no loss of consciousness. Also, the patient is having a lot of mucus and saliva in the mouth. CODE STATUS: Full code. LIVING WILL AND ADVANCED DIRECTIVE: None. ALLERGIES: None. HEIGHT: 4 feet 10. WEIGHT: 110. BMI: 23. ALLERGIES: None. HOME MEDICATIONS: Os-Anibal, vitamin D daily, selenium 50 mcg daily, Boost daily, calcium carbonate, Tums 500 mg p.r.n., vitamin E 400 units daily, Centrum Silver 1 tablet daily, Ativan 0.5 mg twice a day, Vytorin 10-80 daily, Klonopin 4 mg daily, Ativan 0.5 mg twice a day, Klonopin 2-4 mg daily, Digoxin 0.125 daily, aspirin 81 mg daily, Demadex 20 mg daily, Imdur 30 mg daily, Imdur 30 mg daily, Requip 8 mg daily, Cozaar 50 mg twice a day, Coreg 12.5 mg twice a day, Exelon 4.5 mg twice a day. SOCIAL HISTORY: Negative for smoking, negative for alcohol. Negative for drug use. REVIEW OF SYSTEMS: A 13-system review is positive as dictated above. PAST MEDICAL AND SURGICAL HISTORY: History of syncope, history of left bundle branch block, history of left axis deviation, history of left breast carcinoma, left mastectomy, history of dementia, history of congestive heart failure, history of questionable congestive heart failure, history of hypertension, history of angina, history of anxiety disorder, history of dyslipidemia, history of colovesicular and colovaginal fistula, history of left mastectomy, history of anemia, history of diverticulosis, history of pneumonia, history of dyslipidemia, history of diverticulosis, diverticulitis, history of osteopenia, osteoporosis, history of Parkinson's disease, history of anxiety disorder, history of depression, history of questionable aspiration pneumonia, history of chronic kidney disease stage IV, history of colovesicular vesicular and colovaginal fistula, history of right bundle branch block, history of left anterior hemiblock, history of fecal retention, history of aspiration pneumonia , history of leukocytosis, history of sepsis, history of Enterococcus faecalis urinary tract infection, history of mild hyperkalemia, history of digoxin toxicity, history of Enterococcus faecalis urinary tract infection with pyuria, hematuria, proteinuria, bacteriuria, history of syncope, history of bradyarrhythmias with high grade AV block versus complete heart block and asystole for more than 6 seconds probably secondary to Coreg and digoxin, history of left anterior hemiblock, history of left bundle branch block versus intraventricular conduction delay, history of multiple cardiac pauses, history of asymptomatic asystole, history of left ventricular ejection fraction of 43%, history of moderate mitral regurgitation, history of moderate aortic regurgitation, history of aortic sclerosis, history of non-ST elevation myocardial infarction, history of Parkinson's disease, history of dementia, history of questionable nonsustained ventricular tachycardia, history of hypertriglyceridemia, history of hypertension, 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 The patient's past medical history is significant for normocytic anemia, history of hematuria and pyuria and bacteriuria, history of digoxin toxicity, history of dilated cardiomyopathy with left ventricular ejection fraction of 33%, history of left ventricular ejection fraction of 33%, history of mitral regurgitation, history of questionable dilated cardiomyopathy, history of MUGA scan done in 01/2014 showing ejection fraction of 33%. The patient is seen in the Emergency Room in bed #18 and then ultrasound. The patient's son and her are at bedside. PHYSICAL EXAMINATION: VITAL SIGNS: T-max 97.8. Pulse is 62, 69, 74. Blood pressure is 126/54, 122/ 58, 124/60. Respiration 18-20. O2 sat 98%. HEAD: Normocephalic, atraumatic. HEENT: Shows pinkish, pale conjunctivae, dry oral mucosa. Tongue is midline. NECK: Questionable soft carotid bruit. CHEST: Positive kyphosis of the thoracic spine noted. Positive left mastectomy. CARDIOVASCULAR: Shows S1, S2, regular rhythm with systolic murmur in the right second intercostal space, left second intercostal space, left sternal border. ABDOMEN: Soft, protuberant, healed surgical scar of hysterectomy. GENITALIA: Female. RECTAL: Deferred. EXTREMITIES: Shows no pitting edema, no calf tenderness, no Homans' sign. NEUROLOGIC: The patient is arousable, awake, responsive. The patient is able to communicate. The patient is able to move upper and lower extremity without assistance. Gait examination is deferred. LYMPHATICS: Negative. PSYCHIATRIC: Positive for anxiety, dementia. MUSCULOSKELETAL: Shows a body mass index of 23. DIAGNOSTICS: 1. WBC 13.4, hemoglobin/hematocrit 11.6 and 35.6, platelet 272, granulocytes 70 %. PT, PTT is normal and lactic acid 0.9. Sodium 142, potassium 4.5, chloride 97, CO2 of 33, anion gap 17, BUN 123, creatinine 2.3, GFR 25, glucose 97. Lactic acid 1.0, uric acid 10.1, phosphorus 4.6, magnesium 2.7, AST 50. BNP 1040. Lipase 347. TSH 1.6. T4 of 8.7. Urine: pH 6.5, specific gravity 1.010 , large blood, large leukocyte esterase, WBC 10-15, many large bacteria. 2. Chest x-ray was noted, which shows left rib fractures, osteopenia, thoracolumbar spondylosis, left mastectomy. Chronic lung marking noted. 3. CAT scan of the head was done because of confusion, which shows cerebral cortical atrophy and microvascular ischemic disease of the brain. The patient had a bladder and renal ultrasound done, preliminary bladder and renal ultrasound shows pre-void volume almost 250 mL, post-void empty. No ureteral jets noted. There is questionable echogenic mass seen. 4. Renal ultrasound: Official report pending. 5. CAT scan of the abdomen and pelvis was done. The patient's CAT scan of the abdomen and pelvis done, results pending. EKG done in the Emergency Room shows sinus rhythm, left axis deviation, left bundle branch block and ST-T changes. The patient seen by Dr. Amezquita. The patient was treated with IV fluid, Rocephin 1 gram, and the patient was advised to be admitted. IMPRESSION AND PLAN: 1. Altered mental status, etiology undetermined. 2. Acute renal failure and acute kidney injury and prerenal kidney injury. 3. Questionable and possible urinary tract infection. 4. Recurrent fall and gait dysfunction. 5. History of dementia. 6. Questionable swallowing and feeding dysfunction. 7. Leukocytosis with granulocytosis. 8. Normocytic anemia. 9. Hyperuricemia. 10. Hyperphosphatemia. 11. Transaminitis. 12. Elevated BNP with history of congestive heart failure. 13. Hematuria, pyuria, bacteriuria. 14. Left bundle branch block and left axis deviation. 15. Generalized osteopenia and thoracolumbar spondylosis with old healed left rib fracture. 16. Status post mastectomy for left breast carcinoma. 17. Gait dysfunction. 18. Recurrent falls. 19. 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 20. Questionable cystitis with thickened urinary bladder wall. 21. Questionable echogenic urinary bladder mass. 22. History of dementia. 23. History of hypovitaminosis D, history of anxiety, history of dementia, history of congestive heart failure, history of angina, history of dementia. 24. History of colovesicular and colovaginal fistula. PLAN: At this time, the patient will be admitted to [facility]. The patient's home medications will be ordered selectively due to the patient's medical condition and diagnostic data. The patient has been ordered CT and labs. Blood and urine cultures ordered. The patient's consultation has been ordered. Gastroenterology consultation has been ordered. The patient has been ordered GI consultation. The patient has been ordered for evaluation of colovesicular and colovaginal fistula. Infectious disease consultation ordered. Nephrology consultation ordered. Surgical consultation ordered. Procalcitonin level ordered. Current medications, the patient is resumed selenium 50 mcg daily, Ativan 0.5 mg twice a day, Ecotrin 81 mg daily, Exelon capsule 4.5 mg twice a day, GI and DVT prophylaxis started, Imdur 30 mg daily, cefepime 500 mg IV q. 12, Protonix 40 mg daily, Requip 8 mg p.o. daily, IV fluid has been started at 80 mL an hour. The patient received 3 boluses of IV fluid normal saline. Allopurinol 100 mg daily ordered. The patient has been ordered renal ultrasound and bladder ultrasound. CT abdomen and pelvis was ordered. Echo with Doppler ordered for evaluation of history of congestive heart failure. Renal diet ordered. Out of bed to chair. Ramirez catheter inserted in the Emergency Room. ADRIANO stockings and SCD ordered. The patient has been ordered for swallowing evaluation. At present, the patient was seen in the Emergency Room and ultrasound area. The patient's further management will be dependent upon the patient's clinical condition, hemodynamic status and as per the patient response to therapeutic intervention, as per the patient's diagnostic test results and as per recommendation by all the physicians involved in the care of the patient. The patient's condition, diagnosis, need for hospitalization, need for further diagnostic therapeutic intervention, need for evaluation and consultation with multiple specialties was discussed and explained to the patient's son and the at length in layman's language. All questions and concerns answered to their satisfaction. The patient is now admitted to transitional care unit in [facility], bed 1. The patient is seen lying in the bed. The patient's is at bedside. The patient is lying in the bed. The patient is alert, awake, responsive, does not appear to be in any distress. The patient appears to be comfortable, answering questions. The patient is seen lying in the bed. Overnight nurse's notes were reviewed. PHYSICAL EXAMINATION: VITAL SIGNS: T-max 99.2, heart rate 64-70, blood pressure 140/64, 132/51, respirations 20, O2 sat is 93% on room air. Intake and output shows output of 240 and 300. HEAD: Normocephalic, atraumatic. HEENT: Shows pinkish, pale conjunctivae, anicteric sclerae, No oropharyngeal lesion. NECK: No neck rigidity. CHEST: Kyphosis. LUNGS: Show no rales, crackles, or wheezing. CARDIOVASCULAR: S1, S2, regular rhythm. Positive systolic murmur right second intercostal space, left sternal border, left second intercostal space. ABDOMEN: Soft, positive bowel sounds. GENITALIA: Female. Positive Ramirez catheter. EXTREMITIES: Show positive SCDs. No ADRIANO stockings. Slight swelling of the feet noted. NEUROLOGIC: The patient is alert, awake, responsive, is able to move upper and lower extremity without assistance. Gait examination is not tested. The patient is lying in the bed. MUSCULOSKELETAL: Shows a body mass index of 28. DIAGNOSTICS: 11/04, WBC 10.1, hemoglobin and hematocrit 9.1 and 27.9, platelets 247. Chemistry shows sodium of 145, potassium is low normal at 3.6, chloride 114, CO2 25, anion gap 10, BUN 23, creatinine 1.1, GFR 58, glucose 82, calcium 7.0, magnesium 1.9, AST 41, albumin is 2.6 which is slightly low. IMPRESSION: 1. Severe gait dysfunction, deconditioning and bedridden status. 2. Questionable and possible functional quadriplegia. 3. Escherichia coli urinary tract infection. 4. Acute renal failure. 5. Systemic inflammatory response syndrome versus possible sepsis secondary to Escherichia coli urinary tract infection. 6. Colovesical and colovaginal fistula. 7. History of hypertension. 8. Asymptomatic hypoxemia. 9. Normocytic iron deficiency anemia. 10. Normal potassium. 11 Acute renal failure with mild prerenal kidney injury. 12. Non-proteinuric chronic kidney disease stage III/IV. 13. Hypocalcemia. 14. Hypoalbuminemia. 15. Malnutrition. 16. History of anxiety disorder. 17. History of dementia. 18. Iron deficiency normocytic anemia. 19. History of anxiety disorder. 20. Hypovitaminosis D. 21. Hyperuricemia. 22. Deconditioning. 1. Acute renal failure. 2. Systemic inflammatory response syndrome versus possible sepsis secondary to Escherichia coli urinary tract infection. 3. Colovesicular and colovaginal fistula. 4. Acute renal failure. 5. Poor compliance. 6. Severe gait deconditioning and severe gait dysfunction and bedridden status. 7. Functional quadriplegia. 8. Transient asymptomatic hypoxemia. 9. Leukocytosis with granulocytosis. 10. Normocytic iron deficiency anemia. 11. Transient hypernatremia. 12. Acute renal failure. 13. Hyperuricemia. 14. Transaminitis. 15. . 16. Hyperuricemia. 17. Iron deficiency normocytic anemia. 18. Escherichia coli urinary tract infection with proteinuria, hematuria, bacteriuria and pyuria. 19. Sepsis secondary to Escherichia coli urinary tract infection. 20. Mild aortic stenosis. 21. Moderate aortic regurgitation, moderate mitral regurgitation and mild tricuspid regurgitation. 22. History of anxiety disorder, history of dementia, history of hypovitaminosis D and hyperuricemia. 1. Acute renal failure. 2. Questionable sepsis with leukocytosis, granulocytosis. 3. Normocytic anemia. 4. Hypertension. 5. History of dementia. 6. Leukocytosis with granulocytosis. 7. Normocytic anemia. 8. Transient hypernatremia. 9. Acute kidney injury and acute renal failure (resolving). 10. Severe gait dysfunction, deconditioning and possible functional quadriplegia. 11. Hyperuricemia. 12. Transaminitis. 13. Hyperprocalcitoninemia. 14. Hypovitaminosis D. 15. Acute renal failure and acute kidney injury. 16. Escherichia coli urinary tract infection with hematuria, pyuria, bacteriuria. 17. Systemic inflammatory response syndrome with possible sepsis secondary to Escherichia coli urinary tract infection with ____vaginal and ____ fistula. 18. Prerenal azotemia. 19. Chronic kidney disease, stage, IIIB, nonproteinuric. 20. Severe deconditioning and gait dysfunction. 21. Chronic ____, ____ fistula with Escherichia coli urinary tract infection. 22. Moderate aortic and moderate mitral regurgitation. 23. Mild mitral valve prolapse, calcified aortic valve with mild aortic stenosis and moderate aortic regurgitation and moderate mitral regurgitation and mild tricuspid regurgitation with left ventricular ejection fraction of 55%. 24. Gait dysfunction. 25. Deconditioning 26. Anxiety disorder. 27. Dementia. 28. Hypovitaminosis D. 29. Hyperuricemia. 1. Acute renal failure. 2. Questionable sepsis with leukocytosis and granulocytosis. 3. Normocytic anemia. 4. Questionable hemorrhagic cystitis. 5. Questionable hemorrhagic cystitis with intrinsic mural and perivesicular abnormalities and dependent echogenic material debris in the bladder. 6. Left bundle-branch block and left axis deviation. 7. Left lower lung pleural thickening. 8. Cardiomegaly. 9. Sigmoid diverticulosis. 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 11. 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 12. Status post hysterectomy. 13. Sigmoid diverticulosis. 14. Leukocytosis with granulocytosis. 15. Normocytic anemia. 16. Hyponatremia. 17. Slow-resolving acute renal failure. 18. Hyperuricemia. 19. History of dementia. 20. Deconditioning. 21. Gait dysfunction. 22. Recurrent fall. 23. Questionable functional quadriplegia. 24. Hypovitaminosis D. 25. History of dyslipidemia. 26. History of angina, history of hypertension, history of dementia. 1. Altered mental status, etiology undetermined. 2. Acute renal failure and acute kidney injury and prerenal kidney injury. 3. Questionable and possible urinary tract infection. 4. Recurrent fall and gait dysfunction. 5. History of dementia. 6. Questionable swallowing and feeding dysfunction. 7. Leukocytosis with granulocytosis. 8. Normocytic anemia. 9. Hyperuricemia. 10. Hyperphosphatemia. 11. Transaminitis. 12. Elevated BNP with history of congestive heart failure. 13. Hematuria, pyuria, bacteriuria. 14. Left bundle branch block and left axis deviation. 15. Generalized osteopenia and thoracolumbar spondylosis with old healed left rib fracture. 16. Status post mastectomy for left breast carcinoma. 17. Gait dysfunction. 18. Recurrent falls. 19. 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 20. Questionable cystitis with thickened urinary bladder wall. 21. Questionable echogenic urinary bladder mass. 22. History of dementia. 23. History of hypovitaminosis D, history of anxiety, history of dementia, history of congestive heart failure, history of angina, history of dementia. 24. History of colovesicular and colovaginal fistula. PLAN: At this time, the patient is to be continued on the transitional care unit. The patient has been ordered serial labs. CURRENT CONSULTATION: Infectious disease, nephrology and surgery. Procalcitonin level is pending. CURRENT MEDICATIONS: 1. Selenium 50 mcg daily. 2. IV fluid half normal saline at 60 mL an hour. 3. Ativan 0.5 mg twice a day. 4. Ecotrin 81 mg daily. 5. Exelon 4.5 mg twice a day. 6. Flagyl 500 mg p.o. q. 8. 7. Heparin 5000 subQ q. 8. 8. Imdur 30 mg daily. 9. Klonopin 4 mg at bedtime. 10. Lopressor 12.5 mg twice a day. 11. The patient was given a K rider for low normal potassium. 12. Protonix 40 daily. 13. Requip 8 mg daily. 14. Rocephin 1 gram IV daily as per infectious disease for 7 days. 15. Tylenol 650 in suppository q. 6 p.r.n. 16. Venofer 200 mg IV daily for 3 doses. 17. Vitamin D3 2000 units daily. 18. Allopurinol 100 mg daily. The patient is on dysphagia modified consistency diet, mechanically ordered, finely chopped, nectar thick, renal nondialysis diet. The patient has been ordered out of bed, ADRIANO stockings, SCDs. The patient is on nutritional supplement. Occupational therapy, physical therapy ordered. The patient's condition, diagnosis, treatment plan, management plan and recommendation by all physicians involved in the care of the patient explained to the patient and the patient's spouse who is present at the bedside. I have also advised the patient's spouse to contact psychotherapist social worker, Lanny, regarding discharge planning and discharge environmental engineering assistant who the patient's spouse already met with the psychotherapist social worker today. Dictated and electronically signed, not read. Rigo Vargas MD cc: [id number] TT: 11/04/2016 10:42:50 tn MTDD
[2016-11-04] MEDS ORDERED: Sodium Chloride 0.9% 1,000 ML IV SCH (14:00)
[2016-11-04] MEDS ORDERED: Potassium Chloride 40 mEq/30 ml LIQ UD PO STA (14:12)
[2016-11-04] MEDS: Potassium Chloride 20 mEq 100 ML IVPB SCH (14:37)
[2016-11-04] MEDS: Sodium Chloride 0.45% 1,000 ML IV SCH (14:38)
--- NOTE | 2016-11-04 14:38 | CP.PCM.PN ---
Subjective - Date & Time of Evaluation Date of Evaluation: 11/04/16 Time of Evaluation: 14:27 - Subjective Subjective: Pt has a L arm alert and has very poor veins in the R arm. She needs iv access. Objective - Vital Signs/Intake and Output Vital Signs (last 24 hours): Temp Pulse Resp BP Pulse Ox 99.2 F 70 20 140/64 93 L 11/04/16 06:00 11/04/16 08:23 11/04/16 06:00 11/04/16 08:23 11/04/16 06:00 Intake and Output: 11/04/16 11/04/16 06:59 18:59 Intake Total 60 Output Total 600 Balance -540 - Medications Medications: Current Medications Acetaminophen (Tylenol 325mg Tab) 650 mg PO Q6H PRN PRN Reason: TEMP>=99.5&FOR MILDPAIN&DOMINGO Acetaminophen (Tylenol 650 Mg Supp) 650 mg RC Q6H PRN PRN Reason: TEMP>=99.5&FOR MILDPAIN&DOMINGO Aspirin (Ecotrin) 81 mg PO 0800 [facility] Last Admin: 11/04/16 08:22 Dose: 81 mg Cholecalciferol (Vitamin D) 2,000 iu PO DAILY [facility] Last Admin: 11/04/16 10:28 Dose: 2,000 iu Clonazepam (Klonopin) 4 mg PO HS [facility] Last Admin: 11/03/16 22:03 Dose: 4 mg Heparin Sodium (Porcine) (Heparin) 5,000 units SC 0600,1400,2200 [facility] PRN Reason: Protocol Last Admin: 11/04/16 05:13 Dose: 5,000 units Sodium Chloride (Sodium Chloride 0.45%) 1,000 mls @ 60 mls/hr IV .[id number] [facility] Last Admin: 11/03/16 21:58 Dose: 60 mls/hr Iron Sucrose 200 mg/ Sodium (Chloride) 110 mls @ 110 mls/hr IVPB DAILY [facility] Stop: 11/06/16 10:59 Ceftriaxone Sodium (Rocephin 1 Gram Ivpb) 100 mls @ 100 mls/hr IVPB 0600 [facility] PRN Reason: Protocol Stop: 11/09/16 06:01 Last Admin: 11/04/16 05:17 Dose: 100 mls/hr Sodium Chloride (Sodium Chloride 0.9%) 1,000 mls @ 75 mls/hr IV .[id number] [facility] Stop: 11/04/16 16:01 Isosorbide Mononitrate (Imdur) 30 mg PO 0600 [facility] Last Admin: 11/04/16 05:16 Dose: 30 mg Lorazepam (Ativan) 0.5 mg PO BID [facility] PRN Reason: Protocol Last Admin: 11/04/16 10:31 Dose: 0.5 mg Metoprolol Tartrate (Lopressor) 12.5 mg PO BID [facility] Last Admin: 11/04/16 10:26 Dose: Not Given Metronidazole (Flagyl) 500 mg PO 0600,1400,2200 [facility] PRN Reason: Protocol Last Admin: 11/04/16 05:12 Dose: 500 mg Non-Formulary Medication (Selenium [Selenium]) 50 mcg PO DAILY [facility] Pantoprazole Sodium (Protonix Ec Tab) 40 mg PO 0630 [facility] Last Admin: 11/04/16 06:12 Dose: 40 mg Rivastigmine (Exelon Cap) 4.5 mg PO BID [facility] Last Admin: 11/04/16 10:25 Dose: 4.5 mg Ropinirole HCl (Requip) 8 mg PO DAILY [facility] Last Admin: 11/04/16 10:27 Dose: Not Given - Labs Labs: 11/04/16 07:00 11/04/16 07:00 - Constitutional Appears: No Acute Distress Assessment and Plan - Assessment and Plan (Free Text) Assessment: Poor venous access Plan: Hep lock inserted in the R hand. # 24 angiocath used.
--- NOTE | 2016-11-04 15:08 | CON ---
DATE: 11/04/2016 The patient seen earlier today in 315. CHIEF COMPLAINT: Weakness times several days. HISTORY OF PRESENT ILLNESS: This is an 81-year-old female with past medical history significant for congestive heart failure, breast cancer, Parkinson's disease, rectovaginal fistula, who was seen in [facility] care. The patient also with renal failure. Now transferred to transitional care. REVIEW OF SYSTEMS: Reveals the patient is weak. No fevers and chills at this point. No chest pain, abdominal pain and no dysuria or frequency. PAST MEDICAL HISTORY: Significant for breast cancer, congestive heart failure, Parkinson's, rectovag inal fistula and renal disease. PAST SURGICAL HISTORY: Significant for a left mastectomy in 1993. ALLERGIES: The patient has no known allergies. MEDICATIONS: Reviewed. PHYSICAL EXAMINATION: GENERAL: The patient is in bed, appearing chronically ill. Appears much older than her stated age. VITAL SIGNS: Temperature of 97, blood pressure is 130/70, respiratory rate of 20, heart rate of 64. HEENT: Unremarkable. NECK: Supple. LUNGS: Have decreased breath sounds. HEART: Normal S1, S2. ABDOMEN: Soft, nontender. No rebound, no guarding, no masses. LABORATORY EXAMINATION: Reveals a white count of 10,000, hemoglobin is 9, platelets of 247. The yanelis mistries reveal the BUN of 23, creatinine of 1.1. Procalcitonin 0.15. Urinalysis is noted. Microbi ology reveals E. coli in the urine, sensitivity is noted. It is sensitive to ceftriaxone; however, r esistant to Cipro. ASSESSMENT AND PLAN: An 81-year-old female with sepsis with Escherichia coli with urine as the sourc e with a rectovaginal fistula with chronic renal failure. On IV ceftriaxone day #4 and p.o. Flagyl. Overall prognosis is quite poor for this patient who is chronically ill and debilitated and appears end-stage. Most likely we will discontinue the ceftriaxone within the next 24-48 hours. Austen Bradford MD cc: 350 TT: 11/04/2016 15:07:30 Confirmation # [id number] Dictation # [id number] rn
--- NOTE | 2016-11-04 23:12 | CP.PCM.PN ---
Subjective - Date & Time of Evaluation Date of Evaluation: 11/04/16 Time of Evaluation: 20:40 Objective - Vital Signs/Intake and Output Vital Signs (last 24 hours): Temp Pulse Resp BP Pulse Ox 99.2 F 62 20 129/57 L 93 L 11/04/16 06:00 11/04/16 17:44 11/04/16 06:00 11/04/16 17:44 11/04/16 06:00 Intake and Output: 11/04/16 11/05/16 18:59 06:59 Output Total 600 Balance -600 - Medications Medications: Current Medications Acetaminophen (Tylenol 325mg Tab) 650 mg PO Q6H PRN PRN Reason: TEMP>=99.5&FOR MILDPAIN&DOMINGO Acetaminophen (Tylenol 650 Mg Supp) 650 mg RC Q6H PRN PRN Reason: TEMP>=99.5&FOR MILDPAIN&DOMINGO Aspirin (Ecotrin) 81 mg PO 0800 [facility] Last Admin: 11/04/16 08:22 Dose: 81 mg Cholecalciferol (Vitamin D) 2,000 iu PO DAILY [facility] Last Admin: 11/04/16 10:28 Dose: 2,000 iu Clonazepam (Klonopin) 4 mg PO HS [facility] Last Admin: 11/04/16 21:46 Dose: 4 mg Heparin Sodium (Porcine) (Heparin) 5,000 units SC 0600,1400,2200 [facility] PRN Reason: Protocol Last Admin: 11/04/16 21:44 Dose: 5,000 units Home Med (Home Med) 1 unit PO DAILY [facility] Sodium Chloride (Sodium Chloride 0.45%) 1,000 mls @ 60 mls/hr IV .[id number] [facility] Last Admin: 11/04/16 14:38 Dose: 60 mls/hr Iron Sucrose 200 mg/ Sodium (Chloride) 110 mls @ 110 mls/hr IVPB DAILY [facility] Stop: 11/06/16 10:59 Last Admin: 11/04/16 14:42 Dose: 110 mls/hr Ceftriaxone Sodium (Rocephin 1 Gram Ivpb) 100 mls @ 100 mls/hr IVPB 0600 [facility] PRN Reason: Protocol Stop: 11/09/16 06:01 Last Admin: 11/04/16 05:17 Dose: 100 mls/hr Isosorbide Mononitrate (Imdur) 30 mg PO 0600 [facility] Last Admin: 11/04/16 05:16 Dose: 30 mg Lorazepam (Ativan) 0.5 mg PO BID [facility] PRN Reason: Protocol Last Admin: 11/04/16 17:48 Dose: 0.5 mg Metoprolol Tartrate (Lopressor) 12.5 mg PO BID [facility] Last Admin: 11/04/16 17:44 Dose: Not Given Metronidazole (Flagyl) 500 mg PO 0600,1400,2200 [facility] PRN Reason: Protocol Last Admin: 11/04/16 21:45 Dose: 500 mg Pantoprazole Sodium (Protonix Ec Tab) 40 mg PO 0630 [facility] Last Admin: 11/04/16 06:12 Dose: 40 mg Rivastigmine (Exelon Cap) 4.5 mg PO 0800,1800 [facility] PRN Reason: Protocol Last Admin: 11/04/16 17:43 Dose: 4.5 mg Ropinirole HCl (Requip) 8 mg PO DAILY [facility] Last Admin: 11/04/16 10:27 Dose: Not Given - Labs Labs: 11/04/16 07:00 11/04/16 07:00
[2016-11-05] MEDS: Pantoprazole 40 mg EC Tab PO SCH (06:04)
[2016-11-05] MEDS: cefTRIAXone 1 gm 100 ML IVPB SCH (06:04)
[2016-11-05] MEDS: SELENIUM 200 MCG PO SCH (09:20)
[2016-11-05] MEDS: Sodium Chloride 0.45% 1,000 ML IV SCH (14:35)
--- NOTE | 2016-11-05 15:02 | PN ---
DATE: 11/05/2016 SUBJECTIVE: The patient was seen earlier today in room 315. No fevers, no chills. She is weak. PHYSICAL EXAMINATION: VITAL SIGNS: Temperature is 98, blood pressure is 130/70, respiratory rate 16. HEENT: Unremarkable. NECK: Supple. LUNGS: Have decreased breath sounds. ABDOMEN: Soft, nontender. LABORATORY DATA: Reveals a white count of 10,000, hemoglobin of 9, platelets of 247. Chemistries re veal the BUN of 23, creatinine of 1.1. Procalcitonin 0.15. ASSESSMENT AND PLAN: An 81-year-old female with sepsis with Escherichia coli in the urine as the cindy rce with rectovaginal fistula, chronic renal failure, day #5 of ceftriaxone and p.o. Flagyl. Will di scontinue the ceftriaxone and recommend 7-[address] days of p.o. Flagyl. Dr. Wally Ash's progress note is appreciated. Austen Bradford MD cc: 350 TT: 11/05/2016 15:01:08 Confirmation # [id number] Dictation # [id number] mn
--- NOTE | 2016-11-05 23:36 | PN ---
DATE: 11/05/2016 HISTORY OF PRESENT ILLNESS: The patient is seen lying in bed in room 315, bed 1. According to the patient, the patient was made to sit up in the chair. The patient stated that she ambulated. Overnight nurse's notes were reviewed. PHYSICAL EXAMINATION: VITAL SIGNS: T-max 98.7, pulse 66-69, blood pressure 134/61, respiration 18, O2 sat 93%. HEAD: Normocephalic, atraumatic. EENT: Shows pinkish, pale conjunctivae, anicteric sclerae. No oropharyngeal lesion. NECK: No neck rigidity. CHEST: Kyphosis. LUNGS: Shows no rales, crackles, or wheezing. CARDIOVASCULAR: S1, S2, regular rhythm, positive systolic murmur right second intercostal space, left sternal border, left second intercostal space. ABDOMEN: Soft. Positive bowel sounds. GENITALIA: Female. Positive Ramirez catheter. EXTREMITIES: Shows missing ADRIANO stockings and missing SCDs despite my orders. MUSCULOSKELETAL: Shows a body mass index of 28. NEUROLOGIC: Cranial nerves II-XII limited. Gait examination is not tested. VASCULAR: Palpable pulses. PSYCHIATRIC: Positive for anxiety, positive for history of dementia. Positive for Parkinson's disease. DIAGNOSTICS: None from today. IMPRESSION AND PLAN: 1. Severe deconditioning and gait dysfunction and possible bedridden status and possible functional quadriplegia. 2. Sepsis secondary to a Escherichia coli urinary tract infection with history of vaginal and rectovesical fistula. 3. Deconditioning. 4. Escherichia coli urinary tract infection. 5. Acute renal failure. 6. History of hypertension. 7. Asymptomatic hypoxemia. 8. Kyphosis of the thoracic spine. 9. Hypoalbuminemia. 10. Hypocalcemia. 11. Normocytic anemia. 12. Hypokalemia. 13. Oropharyngeal dysphagia with impulsive and unsafe eating behaviors. 14. History of anxiety disorder. 15. History of dementia. 16. History of Parkinson disease. 17. History of normocytic iron deficiency anemia. 1. Severe gait dysfunction, deconditioning and bedridden status. 2. Questionable and possible functional quadriplegia. 3. Escherichia coli urinary tract infection. 4. Acute renal failure. 5. Systemic inflammatory response syndrome versus possible sepsis secondary to Escherichia coli urinary tract infection. 6. Colovesical and colovaginal fistula. 7. History of hypertension. 8. Asymptomatic hypoxemia. 9. Normocytic iron deficiency anemia. 10. Normal potassium. 11 Acute renal failure with mild prerenal kidney injury. 12. Non-proteinuric chronic kidney disease stage III/IV. 13. Hypocalcemia. 14. Hypoalbuminemia. 15. Malnutrition. 16. History of anxiety disorder. 17. History of dementia. 18. Iron deficiency normocytic anemia. 19. History of anxiety disorder. 20. Hypovitaminosis D. 21. Hyperuricemia. 22. Deconditioning. 1. Acute renal failure. 2. Systemic inflammatory response syndrome versus possible sepsis secondary to Escherichia coli urinary tract infection. 3. Colovesicular and colovaginal fistula. 4. Acute renal failure. 5. Poor compliance. 6. Severe gait deconditioning and severe gait dysfunction and bedridden status. 7. Functional quadriplegia. 8. Transient asymptomatic hypoxemia. 9. Leukocytosis with granulocytosis. 10. Normocytic iron deficiency anemia. 11. Transient hypernatremia. 12. Acute renal failure. 13. Hyperuricemia. 14. Transaminitis. 15. . 16. Hyperuricemia. 17. Iron deficiency normocytic anemia. 18. Escherichia coli urinary tract infection with proteinuria, hematuria, bacteriuria and pyuria. 19. Sepsis secondary to Escherichia coli urinary tract infection. 20. Mild aortic stenosis. 21. Moderate aortic regurgitation, moderate mitral regurgitation and mild tricuspid regurgitation. 22. History of anxiety disorder, history of dementia, history of hypovitaminosis D and hyperuricemia. 1. Acute renal failure. 2. Questionable sepsis with leukocytosis, granulocytosis. 3. Normocytic anemia. 4. Hypertension. 5. History of dementia. 6. Leukocytosis with granulocytosis. 7. Normocytic anemia. 8. Transient hypernatremia. 9. Acute kidney injury and acute renal failure (resolving). 10. Severe gait dysfunction, deconditioning and possible functional quadriplegia. 11. Hyperuricemia. 12. Transaminitis. 13. Hyperprocalcitoninemia. 14. Hypovitaminosis D. 15. Acute renal failure and acute kidney injury. 16. Escherichia coli urinary tract infection with hematuria, pyuria, bacteriuria. 17. Systemic inflammatory response syndrome with possible sepsis secondary to Escherichia coli urinary tract infection with ____vaginal and ____ fistula. 18. Prerenal azotemia. 19. Chronic kidney disease, stage, IIIB, nonproteinuric. 20. Severe deconditioning and gait dysfunction. 21. Chronic ____, ____ fistula with Escherichia coli urinary tract infection. 22. Moderate aortic and moderate mitral regurgitation. 23. Mild mitral valve prolapse, calcified aortic valve with mild aortic stenosis and moderate aortic regurgitation and moderate mitral regurgitation and mild tricuspid regurgitation with left ventricular ejection fraction of 55%. 24. Gait dysfunction. 25. Deconditioning 26. Anxiety disorder. 27. Dementia. 28. Hypovitaminosis D. 29. Hyperuricemia. 1. Acute renal failure. 2. Questionable sepsis with leukocytosis and granulocytosis. 3. Normocytic anemia. 4. Questionable hemorrhagic cystitis. 5. Questionable hemorrhagic cystitis with intrinsic mural and perivesicular abnormalities and dependent echogenic material debris in the bladder. 6. Left bundle-branch block and left axis deviation. 7. Left lower lung pleural thickening. 8. Cardiomegaly. 9. Sigmoid diverticulosis. 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 11. 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 12. Status post hysterectomy. 13. Sigmoid diverticulosis. 14. Leukocytosis with granulocytosis. 15. Normocytic anemia. 16. Hyponatremia. 17. Slow-resolving acute renal failure. 18. Hyperuricemia. 19. History of dementia. 20. Deconditioning. 21. Gait dysfunction. 22. Recurrent fall. 23. Questionable functional quadriplegia. 24. Hypovitaminosis D. 25. History of dyslipidemia. 26. History of angina, history of hypertension, history of dementia. 1. Altered mental status, etiology undetermined. 2. Acute renal failure and acute kidney injury and prerenal kidney injury. 3. Questionable and possible urinary tract infection. 4. Recurrent fall and gait dysfunction. 5. History of dementia. 6. Questionable swallowing and feeding dysfunction. 7. Leukocytosis with granulocytosis. 8. Normocytic anemia. 9. Hyperuricemia. 10. Hyperphosphatemia. 11. Transaminitis. 12. Elevated BNP with history of congestive heart failure. 13. Hematuria, pyuria, bacteriuria. 14. Left bundle branch block and left axis deviation. 15. Generalized osteopenia and thoracolumbar spondylosis with old healed left rib fracture. 16. Status post mastectomy for left breast carcinoma. 17. Gait dysfunction. 18. Recurrent falls. 19. 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 20. Questionable cystitis with thickened urinary bladder wall. 21. Questionable echogenic urinary bladder mass. 22. History of dementia. 23. History of hypovitaminosis D, history of anxiety, history of dementia, history of congestive heart failure, history of angina, history of dementia. 24. History of colovesicular and colovaginal fistula. PLAN: At this time, patient is to be continued on the transitional care unit, serial labs ordered. CONSULTATIONS: 1. Infectious disease. 2. Nephrology. 3. Surgery. CURRENT MEDICATIONS: 1. Ativan 0.5 mg twice a day. 2. Ecotrin 81 mg daily. 3. Exelon capsule 4.5 mg twice a day. 4. Flagyl 500 mg q. 8 hours. 5. Heparin 5000 subQ q. 8 hours. 6. The patient is on selenium 200 mcg p.o. daily. 7. Imdur 30 mg daily. 8. Klonopin 4 mg at bedtime. 9. Lopressor 12.5 mg twice a day. 10. The patient is on Protonix 40 daily p.o. 11. Requip 8 mg daily. 12. Tylenol 650 suppository p.o. q. 6 hours p.r.n. 13. IV Venofer 200 mg IV daily. 14. Vitamin D3 2000 units daily. 15. Oxygen 2 liters nasal cannula. DIET: Dysphagia modified consistency, advanced diet. PENDING ORDERS: The patient has been ordered out of bed, ADRIANO paulino, SCDs. Dietary supplement ordered. Physical therapy and occupational therapy ordered. The patient seen by physical therapist. Recommendation: Continue PT. Rigo Vargas MD cc: [id number] TT: 11/05/2016 23:35:53 Confirmation # [id number] Dictation # [id number] ln [email or web address]
[2016-11-06] MEDS: Pantoprazole 40 mg EC Tab PO SCH (05:45)
[2016-11-06 07:51] LABS: ALB/GLOB RATIO 0.8 (1.1-1.8); ALKALINE PHOSPHATASE 60 U/L (38-133); ALT/SGPT 48 U/L (7-56); AST/SGOT 34 U/L (15-39); BILIRUBIN,DIRECT 0.5 mg/dL (0.0-0.4); BILIRUBIN,TOTAL 0.6 mg/dL (0.2-1.3); BLOOD UREA NITROGEN 19 mg/dL (7-21); CALCIUM 7.1 mg/dL (8.4-10.5); CARBON DIOXIDE 19 mmol/L (21-33); CHLORIDE 113 mmol/L (98-107); GFR AFRICAN-AMERICAN > 60; GLUCOSE,RANDOM 83 mg/dL (70-110); MAGNESIUM 1.9 mg/dL (1.7-2.2); POTASSIUM 4.3 mmol/L (3.6-5.0); SODIUM 141 mmol/L (132-148); TOTAL PROTEIN 6.8 g/dL (5.8-8.3)
[2016-11-06 08:18] LABS: ADD MANUAL DIFF? NO
[2016-11-06 08:25] LABS: BASO # 0.02 K/mm3 (0.0-2.0); BASO % 0.2 % (0.0-3.0); EOS # 0.2 (0.0-0.7); EOS % 1.5 % (1.5-5.0); GRAN % 73.5 % (50.0-68.0); HEMATOCRIT 31.9 % (36.0-48.0); LYMPH # 2.3 (1.2-3.4); LYMPH % 18.7 % (22.0-35.0); MEAN CELL VOLUME 93.5 fL (80.0-105.0); MEAN CORPUSCULAR HEMOGLOBIN 30.2 pg (25.0-35.0); MEAN CORPUSCULAR HGB CONC 32.3 g/dl (31.0-37.0); MEAN PLATELET VOLUME 9.1 fl (7.0-11.0); MONO # 0.7 (0.1-0.6); MONO % 6.1 % (1.0-6.0); PLATELET COUNT 300 10^3/uL (120.0-450.0); RED CELL DISTRIBUTION WIDTH 15.2 % (11.5-14.5); WHITE BLOOD COUNT 12.1 10^3/ul (4.5-11.0)
--- NOTE | 2016-11-06 09:00 | PN ---
DATE: 11/05/2016 NEPHROLOGY FOLLOWUP NOTE An 81-year-old female with history of CKD, hypertension, and chronic rectovaginal fistulas/rectovesic al fistulas, who was admitted with UTI, sepsis and acute renal failure, discharged to TCU 2 days ago. The patient reports feeling well. Denies any shortness of breath. Tolerating diet well. Reports cough has eased. PHYSICAL EXAMINATION: VITAL SIGNS: This morning, blood pressure 130/64, heart rate 72, respirations 18, temperature 98.7, O2 sat 93% on room air. GENERAL: No distress, able to speak coherently in full sentences. HEENT: Moist mucous membranes. Elevated JVD. Nonicteric. CHEST: Clear to auscultation bilaterally. No rales, no rhonchi, no wheezes. HEART: S1, S2 positive, no murmurs, no gallops, no rubs. ABDOMEN: Soft, mildly distended, nontender. EXTREMITIES: Mild bilateral lower leg edema. LABORATORY DATA: No new labs since yesterday. Hemoglobin was 9.1, hematocrit 27.9, BUN 23, creatini ne 1.1. Random urine protein to creatinine ratio 552 mg/g. ASSESSMENT: 1. Acute renal failure, prerenal azotemia in the setting of urinary tract infection with increased u rinary frequency and having been on diuretics, as well as loss of renal autoregulation due to being o n an ARB, now resolved. Renal function improved with serum creatinine lower than previously thought baseline. Creatinine yesterday 1.1. The patient appears to have volume excess on exam with elevated JVD and bilateral lower leg edema. O2 saturation also mildly low at 93% on room air, although patie nt is asymptomatic and has clear lungs. We will stop IV fluids. 2. Chronic kidney disease, stage II/IIIA. Previous urinalysis showed negative to trace protein on d ipstick, however, quantitative urine protein to creatinine ratio is elevated at 552 mg/g. However, i t should be noted that although urine was clear at the time of collection, patient does have rectoves ical fistula and urinalysis was contaminated with urinalysis showing many white chills and bacteria. The patient was on an ARB, losartan, prior to admission. Can restart at a low dose. 3. Congestive heart failure. Per patient's family, had been following with a private other wood processing machine operator. Was on diuretics, ARB and beta juan alberto. The patient with signs of volume excess on exam. We will m onitor. May need to start small dose of diuretic. Will ask other wood processing machine operator if previous echo report is available. 4. Urinary tract infection. Completed ceftriaxone. Currently asymptomatic, but with ongoing bacter uria 5. Hypertension, controlled. Currently on metoprolol 12.5 mg b.i.d. and Imdur 30 mg daily. If franklyn ent has evidence of systolic dysfunction on previous echo, should switch to Coreg and add ARB 6. Hypernatremia, mild. Stopping IV fluids currently. The patient can have between 1 and 1.5 liter s of free water daily. Wally Ash MD cc: [id number] TT: 11/05/2016 21:51:41 Confirmation # [id number] Dictation # [id number] angela
[2016-11-06] MEDS: SELENIUM 200 MCG PO SCH (10:10)
--- NOTE | 2016-11-06 11:15 | PN ---
DATE: 11/06/2016 The patient is seen in room 315, bed 1. The patient is again seen lying in the bed with patient's at bedside. The patient is alert, awake, responsive , does not appear to be in any distress. The patient is able to communicate very clearly. Overnight nurse's notes were reviewed. No adverse events documented. PHYSICAL EXAMINATION: VITAL SIGNS: T-max 97.9, pulse 73, blood pressure 140/58, 129/61, respirations 20, O2 sat 92-93%. HEAD: Normocephalic, atraumatic. HEENT: Shows pinkish, pale conjunctivae. Anicteric sclerae. No oropharyngeal lesion. CHEST: Kyphosis. LUNGS: Show no rales, crackles, or wheezing. Occasional rhonchi upper lung walls anteriorly. CARDIOVASCULAR: S1, S2. Regular rhythm. Positive systolic murmur left sternal border, left second intercostal space, right second intercostal space. ABDOMEN: Soft, slightly protuberant. GENITALIA: Female. RECTAL: Deferred. EXTREMITIES: Show positive SCDs, trace swelling, no ADRIANO stockings noted. VASCULAR: Palpable pulses. MUSCULOSKELETAL: Shows a body mass index of 28. NEUROLOGIC: Cranial nerves II-XII limited. Gait examination could not be tested. The patient is lying in the bed. PSYCHIATRIC: Positive for history of anxiety, positive for dementia, positive for Parkinson's. DIAGNOSTICS: From 11/06, WBC 12.1, hemoglobin and hematocrit 10.3 and 32, platelet 300,000, granulocytes 73. Sodium 141, potassium has gone up to 4.3, chloride 113, CO2 19, BUN 19, creatinine 1.0, GFR greater than 60, glucose 83. Uric acid 4.9, calcium 7.1. LFTs are normal. Procalcitonin 0.15 which is negative. INTAKE AND OUTPUT: Yesterday intake 240, output 1500. IMPRESSION: 1. Severe gait dysfunction and deconditioning and possible functional quadriplegia. 2. Sepsis secondary to Escherichia coli urinary tract infection with history of rectovaginal, rectovesical fistula. 3. Escherichia coli urinary tract infection. 4. Acute renal failure. 5. Hypoxemia. 6. Normocytic anemia. 7. Leukocytosis with granulocytosis. 8. Status post acute renal failure. 9. Hypocalcemia. 10. Mild hypoalbuminemia. 11. History of dementia, Parkinson's disease, anxiety, and possible depression. 12. Prerenal kidney injury. 13. Non-proteinuric chronic kidney disease stage III. 14. History of anxiety. 15. History of dementia, history of depression, history of hypovitaminosis D. 1. Severe deconditioning and gait dysfunction and possible bedridden status and possible functional quadriplegia. 2. Sepsis secondary to a Escherichia coli urinary tract infection with history of vaginal and rectovesical fistula. 3. Deconditioning. 4. Escherichia coli urinary tract infection. 5. Acute renal failure. 6. History of hypertension. 7. Asymptomatic hypoxemia. 8. Kyphosis of the thoracic spine. 9. Hypoalbuminemia. 10. Hypocalcemia. 11. Normocytic anemia. 12. Hypokalemia. 13. Oropharyngeal dysphagia with impulsive and unsafe eating behaviors. 14. History of anxiety disorder. 15. History of dementia. 16. History of Parkinson disease. 17. History of normocytic iron deficiency anemia. 1. Severe gait dysfunction, deconditioning and bedridden status. 2. Questionable and possible functional quadriplegia. 3. Escherichia coli urinary tract infection. 4. Acute renal failure. 5. Systemic inflammatory response syndrome versus possible sepsis secondary to Escherichia coli urinary tract infection. 6. Colovesical and colovaginal fistula. 7. History of hypertension. 8. Asymptomatic hypoxemia. 9. Normocytic iron deficiency anemia. 10. Normal potassium. 11 Acute renal failure with mild prerenal kidney injury. 12. Non-proteinuric chronic kidney disease stage III/IV. 13. Hypocalcemia. 14. Hypoalbuminemia. 15. Malnutrition. 16. History of anxiety disorder. 17. History of dementia. 18. Iron deficiency normocytic anemia. 19. History of anxiety disorder. 20. Hypovitaminosis D. 21. Hyperuricemia. 22. Deconditioning. 1. Acute renal failure. 2. Systemic inflammatory response syndrome versus possible sepsis secondary to Escherichia coli urinary tract infection. 3. Colovesicular and colovaginal fistula. 4. Acute renal failure. 5. Poor compliance. 6. Severe gait deconditioning and severe gait dysfunction and bedridden status. 7. Functional quadriplegia. 8. Transient asymptomatic hypoxemia. 9. Leukocytosis with granulocytosis. 10. Normocytic iron deficiency anemia. 11. Transient hypernatremia. 12. Acute renal failure. 13. Hyperuricemia. 14. Transaminitis. 15. . 16. Hyperuricemia. 17. Iron deficiency normocytic anemia. 18. Escherichia coli urinary tract infection with proteinuria, hematuria, bacteriuria and pyuria. 19. Sepsis secondary to Escherichia coli urinary tract infection. 20. Mild aortic stenosis. 21. Moderate aortic regurgitation, moderate mitral regurgitation and mild tricuspid regurgitation. 22. History of anxiety disorder, history of dementia, history of hypovitaminosis D and hyperuricemia. 1. Acute renal failure. 2. Questionable sepsis with leukocytosis, granulocytosis. 3. Normocytic anemia. 4. Hypertension. 5. History of dementia. 6. Leukocytosis with granulocytosis. 7. Normocytic anemia. 8. Transient hypernatremia. 9. Acute kidney injury and acute renal failure (resolving). 10. Severe gait dysfunction, deconditioning and possible functional quadriplegia. 11. Hyperuricemia. 12. Transaminitis. 13. Hyperprocalcitoninemia. 14. Hypovitaminosis D. 15. Acute renal failure and acute kidney injury. 16. Escherichia coli urinary tract infection with hematuria, pyuria, bacteriuria. 17. Systemic inflammatory response syndrome with possible sepsis secondary to Escherichia coli urinary tract infection with ____vaginal and ____ fistula. 18. Prerenal azotemia. 19. Chronic kidney disease, stage, IIIB, nonproteinuric. 20. Severe deconditioning and gait dysfunction. 21. Chronic ____, ____ fistula with Escherichia coli urinary tract infection. 22. Moderate aortic and moderate mitral regurgitation. 23. Mild mitral valve prolapse, calcified aortic valve with mild aortic stenosis and moderate aortic regurgitation and moderate mitral regurgitation and mild tricuspid regurgitation with left ventricular ejection fraction of 55%. 24. Gait dysfunction. 25. Deconditioning 26. Anxiety disorder. 27. Dementia. 28. Hypovitaminosis D. 29. Hyperuricemia. 1. Acute renal failure. 2. Questionable sepsis with leukocytosis and granulocytosis. 3. Normocytic anemia. 4. Questionable hemorrhagic cystitis. 5. Questionable hemorrhagic cystitis with intrinsic mural and perivesicular abnormalities and dependent echogenic material debris in the bladder. 6. Left bundle-branch block and left axis deviation. 7. Left lower lung pleural thickening. 8. Cardiomegaly. 9. Sigmoid diverticulosis. 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 11. 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 12. Status post hysterectomy. 13. Sigmoid diverticulosis. 14. Leukocytosis with granulocytosis. 15. Normocytic anemia. 16. Hyponatremia. 17. Slow-resolving acute renal failure. 18. Hyperuricemia. 19. History of dementia. 20. Deconditioning. 21. Gait dysfunction. 22. Recurrent fall. 23. Questionable functional quadriplegia. 24. Hypovitaminosis D. 25. History of dyslipidemia. 26. History of angina, history of hypertension, history of dementia. 1. Altered mental status, etiology undetermined. 2. Acute renal failure and acute kidney injury and prerenal kidney injury. 3. Questionable and possible urinary tract infection. 4. Recurrent fall and gait dysfunction. 5. History of dementia. 6. Questionable swallowing and feeding dysfunction. 7. Leukocytosis with granulocytosis. 8. Normocytic anemia. 9. Hyperuricemia. 10. Hyperphosphatemia. 11. Transaminitis. 12. Elevated BNP with history of congestive heart failure. 13. Hematuria, pyuria, bacteriuria. 14. Left bundle branch block and left axis deviation. 15. Generalized osteopenia and thoracolumbar spondylosis with old healed left rib fracture. 16. Status post mastectomy for left breast carcinoma. 17. Gait dysfunction. 18. Recurrent falls. 19. 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 20. Questionable cystitis with thickened urinary bladder wall. 21. Questionable echogenic urinary bladder mass. 22. History of dementia. 23. History of hypovitaminosis D, history of anxiety, history of dementia, history of congestive heart failure, history of angina, history of dementia. 24. History of colovesicular and colovaginal fistula. PLAN: At this time, patient has been ordered serial labs. Current consultation : Infectious disease, nephrology and surgery. The patient and the patient's family have refused colostomy. CURRENT MEDICATIONS: 1. Ativan 0.5 mg twice a day. 2. Ecotrin 81 mg daily. 3. Exelon 4.5 mg twice a day. 4. Flagyl 500 mg p.o. q. 8 hours. 5. Heparin 5000 subQ q. 8. 6. The patient is on Imdur 30 mg daily, Klonopin 4 mg at bedtime, Lopressor 12.5 twice a day. 7. Protonix 40 mg daily, Requip 8 mg daily. 8. Tylenol suppository or p.o. q. 6 hours p.r.n., IV Venofer total of 3 doses, vitamin D3 2000 international units daily. The patient's IV fluid, IV antibiotics stopped. The patient's IV fluid and IV Rocephin were stopped. The patient is presently getting physical therapist's care. Their recommendation is continue PT, home with services. I have advised the patient' s to contact director of social media marketing for discharge planning arrangement. The patient has expressed her interest in going home over the weekend. The patient's condition, diagnosis, treatment plan all discussed and explained to the patient and the patient's at length. All questions and concerns answered to their satisfaction which they acknowledged and understand. Dictated and electronically signed, not read. Rigo Vargas MD cc: [id number] TT: 11/06/2016 11:15:11 Confirmation # [id number] Dictation # [id number] tn MTDD
--- NOTE | 2016-11-06 14:47 | PN ---
DATE: 11/06/2016 The patient is in bed, in no acute distress, nontoxic. No fevers. PHYSICAL EXAMINATION: VITAL SIGNS: Temperature is 98, blood pressure is 108/50, respiratory rate of 16. HEENT: Unremarkable. NECK: Supple. LUNGS: Have decreased breath sounds. HEART: Normal S1, S2. ABDOMEN: Soft. LABORATORY DATA: Noted. ASSESSMENT AND PLAN: This is an 81-year-old female with sepsis with Escherichia coli in the urine as the source with a rectovaginal fistula, chronic renal failure. Completed ceftriaxone therapy. Curr ently on p.o. Flagyl for the fistula; day #6 of the Flagyl. Would complete a short course of therapy . Austen Bradford MD cc: [id number] TT: 11/06/2016 14:46:22 Confirmation # [id number] Dictation # [id number] mn
--- NOTE | 2016-11-06 20:53 | PN ---
DATE: 11/06/2016 NEPHROLOGY FOLLOWUP NOTE An 81-year-old female with history of CKD, hypertension, CHF with systolic dysfunction, chronic recto vaginal/rectovesical fistulas, admitted initially with UTI, sepsis and acute renal failure, discharge d to TCU to 3 days ago. The patient reports feeling well. Her cough has resolved. Denies any short ness of breath. Tolerating diet well. Reporting increased bilateral lower leg swelling. PHYSICAL EXAMINATION: VITAL SIGNS: This morning, blood pressure 140/58, heart rate 73, respirations 20, temperature 97.9, O2 sat 92% on room air. GENERAL: No distress, speaking coherently in full sentences. HEENT: Moist mucous membranes. Nonicteric. CHEST: Very mild right basal rales, otherwise clear to auscultation bilaterally. HEART: S1, S2 positive, no murmurs, no gallops, no rubs. ABDOMEN: Soft, mildly distended, nontender. EXTREMITIES: Moderate bilateral lower leg edema. LABORATORY DATA: This morning, WBC 12.1, hemoglobin 10.3, hematocrit 31.9, platelets 300. Chemistry panel: Sodium 141, potassium 4.3, chloride 113, bicarbonate 19, BUN 19, creatinine 1.0. Calcium 7. 1, glucose 8.3, albumin 3.0. ASSESSMENT: 1. Acute renal failure secondary to prerenal azotemia, resolved, was in the setting of urinary tract infection with increased urinary frequency and having been on diuretics at home. Renal function rem ains improved, stable with creatinine at 1.0, stable electrolyte status. IV fluids held yesterday. 2. Chronic kidney disease, stage II/IIIA, likely nonproteinuric kidney disease with negative to trac e protein on previous dipstick. Current qualitative urine protein to creatinine ratio is not reliabl e as it was in a setting of bacterial contamination. The patient was on ARB, losartan, prior to admi ssion. Can restart slowly. 3. Congestive heart failure. Per cardiology consultation done during admission, patient had a MUGA scan 3 years ago that showed decreased ejection fraction, although recent echo done last month showed ejection fraction improved, possibly due to being on beta juan alberto and ARB. The patient currently chicas s signs of volume excess with increasing lower extremity edema. Restarting diuretics today with tors emide 10 mg daily. Had been on 20 mg daily at home. We will also change metoprolol to Coreg 3.125 m g b.i.d. as Coreg has more proven efficacy in heart failure compared to metoprolol. Should also rest art losartan at a lower dose after seeing that blood pressure is stable. 4. Urinary tract infection. Completed course of ceftriaxone. Currently asymptomatic, but with ongo ing bacteruria. 5. Hypertension, controlled on metoprolol 12.5 mg b.i.d. and Imdur 30 mg daily. Metoprolol being ch anged to Coreg at a low dose. 6. Hypernatremia, resolved. The patient should be allowed to drink 1-1.5 liters of free water daily . Wally Ash MD cc: [id number] TT: 11/06/2016 20:52:58 Confirmation # [id number] Dictation # [id number] angela
[2016-11-07] MEDS: Pantoprazole 40 mg EC Tab PO SCH (05:45)
--- NOTE | 2016-11-07 10:03 | PN ---
DATE: 11/07/2016 The patient is in bed, in no acute distress, nontoxic. PHYSICAL EXAMINATION: VITAL SIGNS: Temperature is 98, blood pressure is 130/70, respiratory rate of 16. HEENT: Unremarkable. NECK: Supple. LUNGS: Have decreased breath sounds. HEART: Normal S1, S2. ABDOMEN: Soft, nontender. LABORATORY EXAMINATION: Reveals a white count of 12,000, hemoglobin of 10, platelets of 300. BUN of 19, creatinine of 1.0, procalcitonin 0.15. Microbiology is noted. ASSESSMENT AND PLAN: An 81-year-old female with sepsis with Escherichia coli in the urine, rectovagi nal fistula, chronic renal failure. Currently on p.o. Flagyl day #7. Would complete a short course of Flagyl. Dr. Wally Ash's note from yesterday is reviewed. We will follow with you. Austen Bradford MD cc: [id number] TT: 11/07/2016 10:03:21 Confirmation # [id number] Dictation # [id number]
[2016-11-07] MEDS: SELENIUM 200 MCG PO SCH (10:19)
--- NOTE | 2016-11-07 10:30 | PN ---
DATE: 11/07/2016 The patient is seen lying in the bed, being cleaned up. The patient's was in the hallway. Overnight nurse's notes were reviewed. No adverse events noted. The patient was found to be alert, awake, oriented. PHYSICAL EXAMINATION: VITAL SIGNS: T-max 98.9, pulse 74-73, blood pressure 138/57, 131/63, respirations 18, O2 sat 96%. Intake/output not documented correctly. HEAD: Normocephalic, atraumatic. HEENT: Shows pinkish, pale conjunctivae, anicteric sclerae. No oropharyngeal lesion. NECK: No neck rigidity. CHEST: Positive chest wall kyphosis noted. ABDOMEN: Soft, quite protuberant. GENITALIA: Female. Positive Ramirez catheter. EXTREMITIES: Shows trace swelling of the lower extremities. Missing ADRIANO stockings and SCDs despite my multiple orders. MUSCULOSKELETAL: Shows a body mass index of 28. The patient was seen. The patient was seen again lying in the bed. DIAGNOSTICS: From 11/06 were reviewed. IMPRESSION AND PLAN: 1. Severe deconditioning and gait dysfunction. 2. Possible functional quadriplegia. 3. Nonproteinuric chronic kidney disease stage III. 4. Acute renal failure, secondary to prerenal kidney injury (resolved). 5. Mild venous stasis of the lower extremities. 6. Sepsis with Escherichia coli urinary tract infection. 7. Rectovesical and rectovaginal fistula. 8. Deconditioning. 9. Gait dysfunction. 10. Normocytic anemia. 11. Normocytic iron deficiency anemia. 12. Leukocytosis with granulocytosis. 13. Hypocalcemia. 14. Hypokalemia. 1. Severe gait dysfunction and deconditioning and possible functional quadriplegia. 2. Sepsis secondary to Escherichia coli urinary tract infection with history of rectovaginal, rectovesical fistula. 3. Escherichia coli urinary tract infection. 4. Acute renal failure. 5. Hypoxemia. 6. Normocytic anemia. 7. Leukocytosis with granulocytosis. 8. Status post acute renal failure. 9. Hypocalcemia. 10. Mild hypoalbuminemia. 11. History of dementia, Parkinson's disease, anxiety, and possible depression. 12. Prerenal kidney injury. 13. Non-proteinuric chronic kidney disease stage III. 14. History of anxiety. 15. History of dementia, history of depression, history of hypovitaminosis D. 1. Severe deconditioning and gait dysfunction and possible bedridden status and possible functional quadriplegia. 2. Sepsis secondary to a Escherichia coli urinary tract infection with history of vaginal and rectovesical fistula. 3. Deconditioning. 4. Escherichia coli urinary tract infection. 5. Acute renal failure. 6. History of hypertension. 7. Asymptomatic hypoxemia. 8. Kyphosis of the thoracic spine. 9. Hypoalbuminemia. 10. Hypocalcemia. 11. Normocytic anemia. 12. Hypokalemia. 13. Oropharyngeal dysphagia with impulsive and unsafe eating behaviors. 14. History of anxiety disorder. 15. History of dementia. 16. History of Parkinson disease. 17. History of normocytic iron deficiency anemia. 1. Severe gait dysfunction, deconditioning and bedridden status. 2. Questionable and possible functional quadriplegia. 3. Escherichia coli urinary tract infection. 4. Acute renal failure. 5. Systemic inflammatory response syndrome versus possible sepsis secondary to Escherichia coli urinary tract infection. 6. Colovesical and colovaginal fistula. 7. History of hypertension. 8. Asymptomatic hypoxemia. 9. Normocytic iron deficiency anemia. 10. Normal potassium. 11 Acute renal failure with mild prerenal kidney injury. 12. Non-proteinuric chronic kidney disease stage III/IV. 13. Hypocalcemia. 14. Hypoalbuminemia. 15. Malnutrition. 16. History of anxiety disorder. 17. History of dementia. 18. Iron deficiency normocytic anemia. 19. History of anxiety disorder. 20. Hypovitaminosis D. 21. Hyperuricemia. 22. Deconditioning. 1. Acute renal failure. 2. Systemic inflammatory response syndrome versus possible sepsis secondary to Escherichia coli urinary tract infection. 3. Colovesicular and colovaginal fistula. 4. Acute renal failure. 5. Poor compliance. 6. Severe gait deconditioning and severe gait dysfunction and bedridden status. 7. Functional quadriplegia. 8. Transient asymptomatic hypoxemia. 9. Leukocytosis with granulocytosis. 10. Normocytic iron deficiency anemia. 11. Transient hypernatremia. 12. Acute renal failure. 13. Hyperuricemia. 14. Transaminitis. 15. . 16. Hyperuricemia. 17. Iron deficiency normocytic anemia. 18. Escherichia coli urinary tract infection with proteinuria, hematuria, bacteriuria and pyuria. 19. Sepsis secondary to Escherichia coli urinary tract infection. 20. Mild aortic stenosis. 21. Moderate aortic regurgitation, moderate mitral regurgitation and mild tricuspid regurgitation. 22. History of anxiety disorder, history of dementia, history of hypovitaminosis D and hyperuricemia. 1. Acute renal failure. 2. Questionable sepsis with leukocytosis, granulocytosis. 3. Normocytic anemia. 4. Hypertension. 5. History of dementia. 6. Leukocytosis with granulocytosis. 7. Normocytic anemia. 8. Transient hypernatremia. 9. Acute kidney injury and acute renal failure (resolving). 10. Severe gait dysfunction, deconditioning and possible functional quadriplegia. 11. Hyperuricemia. 12. Transaminitis. 13. Hyperprocalcitoninemia. 14. Hypovitaminosis D. 15. Acute renal failure and acute kidney injury. 16. Escherichia coli urinary tract infection with hematuria, pyuria, bacteriuria. 17. Systemic inflammatory response syndrome with possible sepsis secondary to Escherichia coli urinary tract infection with ____vaginal and ____ fistula. 18. Prerenal azotemia. 19. Chronic kidney disease, stage, IIIB, nonproteinuric. 20. Severe deconditioning and gait dysfunction. 21. Chronic ____, ____ fistula with Escherichia coli urinary tract infection. 22. Moderate aortic and moderate mitral regurgitation. 23. Mild mitral valve prolapse, calcified aortic valve with mild aortic stenosis and moderate aortic regurgitation and moderate mitral regurgitation and mild tricuspid regurgitation with left ventricular ejection fraction of 55%. 24. Gait dysfunction. 25. Deconditioning 26. Anxiety disorder. 27. Dementia. 28. Hypovitaminosis D. 29. Hyperuricemia. 1. Acute renal failure. 2. Questionable sepsis with leukocytosis and granulocytosis. 3. Normocytic anemia. 4. Questionable hemorrhagic cystitis. 5. Questionable hemorrhagic cystitis with intrinsic mural and perivesicular abnormalities and dependent echogenic material debris in the bladder. 6. Left bundle-branch block and left axis deviation. 7. Left lower lung pleural thickening. 8. Cardiomegaly. 9. Sigmoid diverticulosis. 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 11. 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 12. Status post hysterectomy. 13. Sigmoid diverticulosis. 14. Leukocytosis with granulocytosis. 15. Normocytic anemia. 16. Hyponatremia. 17. Slow-resolving acute renal failure. 18. Hyperuricemia. 19. History of dementia. 20. Deconditioning. 21. Gait dysfunction. 22. Recurrent fall. 23. Questionable functional quadriplegia. 24. Hypovitaminosis D. 25. History of dyslipidemia. 26. History of angina, history of hypertension, history of dementia. 1. Altered mental status, etiology undetermined. 2. Acute renal failure and acute kidney injury and prerenal kidney injury. 3. Questionable and possible urinary tract infection. 4. Recurrent fall and gait dysfunction. 5. History of dementia. 6. Questionable swallowing and feeding dysfunction. 7. Leukocytosis with granulocytosis. 8. Normocytic anemia. 9. Hyperuricemia. 10. Hyperphosphatemia. 11. Transaminitis. 12. Elevated BNP with history of congestive heart failure. 13. Hematuria, pyuria, bacteriuria. 14. Left bundle branch block and left axis deviation. 15. Generalized osteopenia and thoracolumbar spondylosis with old healed left rib fracture. 16. Status post mastectomy for left breast carcinoma. 17. Gait dysfunction. 18. Recurrent falls. 19. 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 20. Questionable cystitis with thickened urinary bladder wall. 21. Questionable echogenic urinary bladder mass. 22. History of dementia. 23. History of hypovitaminosis D, history of anxiety, history of dementia, history of congestive heart failure, history of angina, history of dementia. 24. History of colovesicular and colovaginal fistula. PLAN: At this time, I have extensively met with the patient's again today. I have explained to the patient's about patient's diagnosis, overall poor performance status and severe deconditioning. I have advised the patient's to contact social director with assistance for discharge planning. I have also asked the patient's to discuss with the medical social consultant regarding possible placement into subacute rehab versus acute rehabilitation, which I have very specifically told the patient's to discuss with the social director. The patient's diagnosis, overall guarded to poor prognosis was explained to the patient's in layman's language on multiple occasions, even today. All questions and concerns answered. CURRENT MEDICATIONS: 1. Ativan 0.5 mg twice a day. 2. Coreg 3.125 mg twice a day. 3. Demadex 10 mg daily. 4. Ecotrin 81 mg daily. 5. Exelon capsule 4.5 mg twice a day. 6. Flagyl 500 mg 3 times a day. 7. Heparin 5000 subQ q. 8. 8. Selenium 200 mcg daily. 9. Imdur 30 mg daily. 10. Klonopin 4 mg at bedtime. 11. Protonix 40 mg daily. 12. Requip 8 mg at 8 p.m. 13. Tylenol 650 q. 6 p.r.n. suppository or p.o. 14. Vitamin D3 2000 international units daily. 15. Oxygen. 16. Dysphagia modified consistency diet. ADRIANO paulino, SCDs ordered again. Nutritional supplement ordered, which includes Ensure pudding. The patient has been ordered physical therapy, occupational therapy. The patient will be continued on the above therapeutic intervention. The patient's was advised the patient will be continued on above therapeutic intervention on transitional care unit until approved days by patient's insurance, which the patient's understands and acknowledges. Dictated and electronically signed, not read. Rigo Vargas MD cc: [id number] TT: 11/07/2016 10:29:25 Confirmation # [id number] Dictation # [id number] en MTDD
[2016-11-08] MEDS: Pantoprazole 40 mg EC Tab PO SCH (06:31)
--- NOTE | 2016-11-08 08:25 | CP.PCM.PN ---
Subjective - Date & Time of Evaluation Date of Evaluation: 11/08/16 Time of Evaluation: 08:00 - Subjective Subjective: (covering for Dr. Vargas) Patient is seen this morning in room 315 bed 1. Her is at her bedside helping her to eat breakfast. Objective - Vital Signs/Intake and Output Vital Signs (last 24 hours): Temp Pulse Resp BP Pulse Ox 97.8 F 72 14 140/57 L 93 L 11/07/16 16:00 11/07/16 17:55 11/07/16 16:00 11/07/16 17:55 11/07/16 16:00 - Medications Medications: Current Medications Acetaminophen (Tylenol 325mg Tab) 650 mg PO Q6H PRN PRN Reason: TEMP>=99.5&FOR MILDPAIN&DOMINGO Acetaminophen (Tylenol 650 Mg Supp) 650 mg RC Q6H PRN PRN Reason: TEMP>=99.5&FOR MILDPAIN&DOMINGO Aspirin (Ecotrin) 81 mg PO 0800 [facility] Last Admin: 11/07/16 08:13 Dose: 81 mg Carvedilol (Coreg) 3.125 mg PO 0800,1800 [facility] Last Admin: 11/07/16 17:55 Dose: Not Given Cholecalciferol (Vitamin D) 2,000 iu PO DAILY [facility] Last Admin: 11/07/16 10:19 Dose: 2,000 iu Clonazepam (Klonopin) 4 mg PO HS [facility] Last Admin: 11/07/16 23:13 Dose: 4 mg Heparin Sodium (Porcine) (Heparin) 5,000 units SC 0600,1400,2200 [facility] PRN Reason: Protocol Last Admin: 11/08/16 06:31 Dose: 5,000 units Home Med (Home Med) 1 unit PO DAILY [facility] Last Admin: 11/07/16 10:19 Dose: 1 unit Isosorbide Mononitrate (Imdur) 30 mg PO 0600 [facility] Last Admin: 11/08/16 06:31 Dose: 30 mg Lorazepam (Ativan) 0.5 mg PO BID [facility] PRN Reason: Protocol Last Admin: 11/07/16 17:58 Dose: 0.5 mg Metronidazole (Flagyl) 500 mg PO 0600,1400,2200 [facility] PRN Reason: Protocol Last Admin: 11/08/16 06:30 Dose: 500 mg Pantoprazole Sodium (Protonix Ec Tab) 40 mg PO 0630 [facility] Last Admin: 11/08/16 06:31 Dose: 40 mg Rivastigmine (Exelon Cap) 4.5 mg PO 0800,1800 [facility] PRN Reason: Protocol Last Admin: 11/07/16 17:55 Dose: 4.5 mg Ropinirole HCl (Requip) 8 mg PO 0800 [facility] Last Admin: 11/07/16 08:14 Dose: 8 mg Torsemide (Demadex) 10 mg PO DAILY [facility] Last Admin: 11/07/16 10:18 Dose: 10 mg - Labs Labs: 11/06/16 08:15 11/06/16 07:10 - Constitutional Appears: No Acute Distress - Head Exam Head Exam: ATRAUMATIC, NORMOCEPHALIC - Respiratory Exam Respiratory Exam: NORMAL BREATHING PATTERN - Cardiovascular Exam Cardiovascular Exam: +S1, +S2 - GI/Abdominal Exam GI & Abdominal Exam: Soft, Normal Bowel Sounds. absent: Tenderness - Extremities Exam Additional comments: compression stockings and BL SCDs Assessment and Plan - Assessment and Plan (Free Text) Assessment: Severe deconditioning Gait dysfunction CKD stage III E. coli urinary tract infection Anemia Plan: Patient is seen in the transitional care unit. She is receiving both physical and occupational therapy. Infectious disease and nephrology are on the case. She is on flagyl as per infectious disease. continue current management and we will followup tomorrow
[2016-11-08 08:33] LABS: ADD MANUAL DIFF? NO
[2016-11-08 08:42] LABS: BASO # 0.03 K/mm3 (0.0-2.0); BASO % 0.3 % (0.0-3.0); EOS # 0.3 (0.0-0.7); EOS % 2.8 % (1.5-5.0); GRAN # 5.91 (1.4-6.5); GRAN % 55.9 % (50.0-68.0); HEMATOCRIT 33.5 % (36.0-48.0); LYMPH # 3.3 (1.2-3.4); LYMPH % 31.5 % (22.0-35.0); MEAN CELL VOLUME 94.6 fL (80.0-105.0); MEAN CORPUSCULAR HEMOGLOBIN 30.8 pg (25.0-35.0); MEAN CORPUSCULAR HGB CONC 32.5 g/dl (31.0-37.0); MEAN PLATELET VOLUME 9.3 fl (7.0-11.0); MONO % 9.5 % (1.0-6.0); PLATELET COUNT 340 10^3/uL (120.0-450.0); RED CELL DISTRIBUTION WIDTH 16.3 % (11.5-14.5); WHITE BLOOD COUNT 10.6 10^3/ul (4.5-11.0)
[2016-11-08 08:49] LABS: ALB/GLOB RATIO 0.8 (1.1-1.8); ALKALINE PHOSPHATASE 64 U/L (38-133); ALT/SGPT 47 U/L (7-56); AST/SGOT 36 U/L (15-39); BILIRUBIN,DIRECT 0.4 mg/dL (0.0-0.4); BILIRUBIN,TOTAL 0.5 mg/dL (0.2-1.3); BLOOD UREA NITROGEN 20 mg/dL (7-21); CALCIUM 7.9 mg/dL (8.4-10.5); CARBON DIOXIDE 25 mmol/L (21-33); CHLORIDE 110 mmol/L (98-107); GFR AFRICAN-AMERICAN > 60; GLUCOSE,RANDOM 78 mg/dL (70-110); MAGNESIUM 1.7 mg/dL (1.7-2.2); POTASSIUM 3.8 mmol/L (3.6-5.0); SODIUM 143 mmol/L (132-148)
[2016-11-08] MEDS: SELENIUM 200 MCG PO SCH (10:22)
--- NOTE | 2016-11-08 14:19 | PN ---
DATE: 11/08/2016 The patient is in bed in no acute distress, nontoxic. PHYSICAL EXAMINATION: VITAL SIGNS: Temperature is 98, blood pressure is 120/70, respiratory rate of 16. HEENT: Unremarkable. NECK: Supple. LUNGS: Have decreased breath sounds. HEART: Normal S1, S2. ABDOMEN: Soft, nontender. LABORATORY DATA: Reveals the patient's white count is 10,000, hemoglobin of 10 and platelets are not ed to be at 340. Chemistries reveal the BUN of 20, creatinine of 1.0. Procalcitonin 0.15. Review of the orders reveals the patient is on p.o. Flagyl. ASSESSMENT AND PLAN: This is an 81-year-old female with sepsis with Escherichia coli in the urine, r ectovaginal fistula, chronic renal failure, on p.o. Flagyl day #8. We will discontinue p.o. Flagyl within the next 24 hours. Case discussed with . ____. Austen Bradford MD cc: 350 TT: 11/08/2016 14:18:49 Confirmation # [id number] Dictation # [id number] jn
[2016-11-09] MEDS: Pantoprazole 40 mg EC Tab PO SCH (05:36)
--- NOTE | 2016-11-09 08:17 | CP.PCM.PN ---
Subjective - Date & Time of Evaluation Date of Evaluation: 11/09/16 Time of Evaluation: 08:00 - Subjective Subjective: (covering for Dr. Vargas) Patient is seen this morning in room 315 bed 1. She has no complaints this morning. Objective - Vital Signs/Intake and Output Vital Signs (last 24 hours): Temp Pulse Resp BP Pulse Ox 98.1 F 74 16 147/65 92 L 11/09/16 06:00 11/09/16 08:05 11/09/16 06:00 11/09/16 08:05 11/09/16 06:00 Intake and Output: 11/09/16 11/09/16 06:59 18:59 Output Total 25 Balance -25 - Medications Medications: Current Medications Acetaminophen (Tylenol 325mg Tab) 650 mg PO Q6H PRN PRN Reason: TEMP>=99.5&FOR MILDPAIN&DOMINGO Acetaminophen (Tylenol 650 Mg Supp) 650 mg RC Q6H PRN PRN Reason: TEMP>=99.5&FOR MILDPAIN&DOMINGO Aspirin (Ecotrin) 81 mg PO 0800 [facility] Last Admin: 11/09/16 08:06 Dose: 81 mg Carvedilol (Coreg) 3.125 mg PO 0800,1800 [facility] Last Admin: 11/09/16 08:05 Dose: 3.125 mg Cholecalciferol (Vitamin D) 2,000 iu PO DAILY [facility] Last Admin: 11/08/16 09:10 Dose: 2,000 iu Clonazepam (Klonopin) 4 mg PO HS [facility] Last Admin: 11/08/16 21:11 Dose: 4 mg Heparin Sodium (Porcine) (Heparin) 5,000 units SC 0600,1400,2200 [facility] PRN Reason: Protocol Last Admin: 11/09/16 05:40 Dose: 5,000 units Home Med (Home Med) 1 unit PO DAILY [facility] Last Admin: 11/08/16 10:22 Dose: 1 unit Isosorbide Mononitrate (Imdur) 30 mg PO 0600 [facility] Last Admin: 11/09/16 05:35 Dose: 30 mg Lorazepam (Ativan) 0.5 mg PO BID [facility] PRN Reason: Protocol Last Admin: 11/08/16 18:04 Dose: 0.5 mg Metronidazole (Flagyl) 500 mg PO 0600,1400,2200 [facility] PRN Reason: Protocol Last Admin: 11/09/16 05:35 Dose: 500 mg Pantoprazole Sodium (Protonix Ec Tab) 40 mg PO 0630 [facility] Last Admin: 11/09/16 05:36 Dose: 40 mg Rivastigmine (Exelon Cap) 4.5 mg PO 0800,1800 [facility] PRN Reason: Protocol Last Admin: 11/09/16 08:06 Dose: 4.5 mg Ropinirole HCl (Requip) 8 mg PO 0800 [facility] Last Admin: 11/09/16 08:06 Dose: 8 mg Torsemide (Demadex) 10 mg PO DAILY [facility] Last Admin: 11/08/16 09:09 Dose: 10 mg - Labs Labs: 11/08/16 07:30 11/08/16 07:30 - Constitutional Appears: No Acute Distress - Respiratory Exam Respiratory Exam: Decreased Breath Sounds, NORMAL BREATHING PATTERN - Cardiovascular Exam Cardiovascular Exam: +S1, +S2 - GI/Abdominal Exam GI & Abdominal Exam: Distended, Soft - Neurological Exam Neurological Exam: Alert, Awake Assessment and Plan - Assessment and Plan (Free Text) Assessment: Severe deconditioning and gait dysfunction E. coli urinary tract infection CKD III Anemia Plan: Patient has no complaints this morning. Abdomen,however is distended. Patient says she has normal bowel movements. Will check Xray Abdomen. continue physical therapy. Dr. Vargas will see the patient tomorrow.
[2016-11-09] MEDS: SELENIUM 200 MCG PO SCH (10:08)
--- NOTE | 2016-11-09 11:32 | RAD ---
HISTORY: abdominal distension COMPARISON: Comparison made with CT scan abdomen pelvis . FINDINGS: BOWEL: There appears to be at least 1 distended loop of bowel overlying the mid upper pelvis region. Multiple additional nondistended air-filled loops of small bowel are also noted. Clinical correlation recommended. No gross free air seen on this supine portable view however the examination is somewhat limited to assess for free air due to the lack of erect view. BONES: Multilevel degenerative spondylosis of the lower thoracic and lumbar spine. OTHER FINDINGS: None. IMPRESSION: There appears to be at least 1 distended loop of bowel overlying the mid upper pelvis region. Multiple additional nondistended air-filled loops of small bowel are also noted. Clinical correlation recommended. No gross free air seen on this supine portable view however the examination is somewhat limited to assess for free air due to the lack of erect view.
--- NOTE | 2016-11-09 16:33 | PN ---
DATE: 11/09/2016 The patient is in bed in no acute distress, nontoxic. PHYSICAL EXAMINATION: VITAL SIGNS: Temperature is 98, blood pressure is 120/70, respiratory rate of 16. HEENT: Unremarkable. NECK: Supple. LUNGS: Have decreased breath sounds. HEART: Normal S1, S2. ABDOMEN: Soft. LABORATORY DATA: Reveals a white count of 10,000, hemoglobin of 10. BUN of 20, creatinine 1.0. Pro calcitonin 0.15. ASSESSMENT AND PLAN: This is an 81-year-old female with sepsis with Escherichia coli in the urine, r ectovaginal fistula, chronic renal failure on p.o. Flagyl, which she has completed and today is day # 9, for her fistula. Overall prognosis: Long-term prognosis is poor. Will follow with you. Austen Bradford MD cc: 350 TT: 11/09/2016 16:32:45 Confirmation # [id number] Dictation # [id number] dn
[2016-11-10] MEDS: Pantoprazole 40 mg EC Tab PO SCH (05:47)
[2016-11-10] MEDS: SELENIUM 200 MCG PO SCH (10:58)
--- NOTE | 2016-11-10 13:11 | PN ---
DATE: 11/10/2016 The patient is seen ambulating with physical therapy with the patient's ambulating with the patient. The patient is ambulating with the assistance by 2 physical therapists and a walker. Overnight nurse's notes were reviewed. No adverse events were documented. PHYSICAL EXAMINATION: VITAL SIGNS: T-max 98.7, pulse 84, blood pressure 147/67, respirations 20, O2 sat has been in the mid-90s. HEAD: Normocephalic, atraumatic. HEENT: Shows pinkish, pale conjunctivae, anicteric sclerae. No oropharyngeal lesion. NECK: No neck rigidity. CHEST: Kyphosis. LUNGS: Shows no rales, crackles, or wheezing. CARDIOVASCULAR: Shows S1, S2, regular rhythm, positive systolic murmur right second intercostal space, left sternal border, left second intercostal space. ABDOMEN: Soft, protuberant. Positive bowel sounds. GENITALIA: Female. Positive Ramirez catheter. EXTREMITIES: Shows no pitting edema, no calf tenderness, no Homans signs. Trace swelling of the ankles noted. MUSCULOSKELETAL: Shows a body mass index of 28. NEUROLOGIC: Cranial nerves II through XII limited. GAIT: Assisted with walker with 2 people assisting with ambulation. Positive kyphosis noted of the spine. PSYCHIATRIC: Positive history of anxiety, depression, dementia, Parkinson disease. DIAGNOSTICS: From 11/08 were reviewed. The patient was seen by hospital social worker over the weekend. The patient's case will be referred to visiting nurse, [facility], upon discharge. IMPRESSION AND PLAN: 1. Severe deconditioning and gait dysfunction. 2. Deconditioning. 3. Questionable constipation and fecal retention. 4. Asymptomatic hypoxemia. 5. Leukocytosis with granulocytosis. 6. Normocytic anemia. 7. Prerenal kidney injury. 8. Status post acute renal failure. 9. 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 10. Deconditioning. 11. Gait dysfunction. 12. Sepsis secondary to Escherichia coli urinary tract infection. 13. History of colovesicular colovaginal fistula. 14. Dementia. 15. History of Parkinson disease. 16. History of anxiety disorder. 17. History of constipation. 1. Severe deconditioning and gait dysfunction. 2. Possible functional quadriplegia. 3. Nonproteinuric chronic kidney disease stage III. 4. Acute renal failure, secondary to prerenal kidney injury (resolved). 5. Mild venous stasis of the lower extremities. 6. Sepsis with Escherichia coli urinary tract infection. 7. Rectovesical and rectovaginal fistula. 8. Deconditioning. 9. Gait dysfunction. 10. Normocytic anemia. 11. Normocytic iron deficiency anemia. 12. Leukocytosis with granulocytosis. 13. Hypocalcemia. 14. Hypokalemia. 1. Severe gait dysfunction and deconditioning and possible functional quadriplegia. 2. Sepsis secondary to Escherichia coli urinary tract infection with history of rectovaginal, rectovesical fistula. 3. Escherichia coli urinary tract infection. 4. Acute renal failure. 5. Hypoxemia. 6. Normocytic anemia. 7. Leukocytosis with granulocytosis. 8. Status post acute renal failure. 9. Hypocalcemia. 10. Mild hypoalbuminemia. 11. History of dementia, Parkinson's disease, anxiety, and possible depression. 12. Prerenal kidney injury. 13. Non-proteinuric chronic kidney disease stage III. 14. History of anxiety. 15. History of dementia, history of depression, history of hypovitaminosis D. 1. Severe deconditioning and gait dysfunction and possible bedridden status and possible functional quadriplegia. 2. Sepsis secondary to a Escherichia coli urinary tract infection with history of vaginal and rectovesical fistula. 3. Deconditioning. 4. Escherichia coli urinary tract infection. 5. Acute renal failure. 6. History of hypertension. 7. Asymptomatic hypoxemia. 8. Kyphosis of the thoracic spine. 9. Hypoalbuminemia. 10. Hypocalcemia. 11. Normocytic anemia. 12. Hypokalemia. 13. Oropharyngeal dysphagia with impulsive and unsafe eating behaviors. 14. History of anxiety disorder. 15. History of dementia. 16. History of Parkinson disease. 17. History of normocytic iron deficiency anemia. 1. Severe gait dysfunction, deconditioning and bedridden status. 2. Questionable and possible functional quadriplegia. 3. Escherichia coli urinary tract infection. 4. Acute renal failure. 5. Systemic inflammatory response syndrome versus possible sepsis secondary to Escherichia coli urinary tract infection. 6. Colovesical and colovaginal fistula. 7. History of hypertension. 8. Asymptomatic hypoxemia. 9. Normocytic iron deficiency anemia. 10. Normal potassium. 11 Acute renal failure with mild prerenal kidney injury. 12. Non-proteinuric chronic kidney disease stage III/IV. 13. Hypocalcemia. 14. Hypoalbuminemia. 15. Malnutrition. 16. History of anxiety disorder. 17. History of dementia. 18. Iron deficiency normocytic anemia. 19. History of anxiety disorder. 20. Hypovitaminosis D. 21. Hyperuricemia. 22. Deconditioning. 1. Acute renal failure. 2. Systemic inflammatory response syndrome versus possible sepsis secondary to Escherichia coli urinary tract infection. 3. Colovesicular and colovaginal fistula. 4. Acute renal failure. 5. Poor compliance. 6. Severe gait deconditioning and severe gait dysfunction and bedridden status. 7. Functional quadriplegia. 8. Transient asymptomatic hypoxemia. 9. Leukocytosis with granulocytosis. 10. Normocytic iron deficiency anemia. 11. Transient hypernatremia. 12. Acute renal failure. 13. Hyperuricemia. 14. Transaminitis. 15. . 16. Hyperuricemia. 17. Iron deficiency normocytic anemia. 18. Escherichia coli urinary tract infection with proteinuria, hematuria, bacteriuria and pyuria. 19. Sepsis secondary to Escherichia coli urinary tract infection. 20. Mild aortic stenosis. 21. Moderate aortic regurgitation, moderate mitral regurgitation and mild tricuspid regurgitation. 22. History of anxiety disorder, history of dementia, history of hypovitaminosis D and hyperuricemia. 1. Acute renal failure. 2. Questionable sepsis with leukocytosis, granulocytosis. 3. Normocytic anemia. 4. Hypertension. 5. History of dementia. 6. Leukocytosis with granulocytosis. 7. Normocytic anemia. 8. Transient hypernatremia. 9. Acute kidney injury and acute renal failure (resolving). 10. Severe gait dysfunction, deconditioning and possible functional quadriplegia. 11. Hyperuricemia. 12. Transaminitis. 13. Hyperprocalcitoninemia. 14. Hypovitaminosis D. 15. Acute renal failure and acute kidney injury. 16. Escherichia coli urinary tract infection with hematuria, pyuria, bacteriuria. 17. Systemic inflammatory response syndrome with possible sepsis secondary to Escherichia coli urinary tract infection with ____vaginal and ____ fistula. 18. Prerenal azotemia. 19. Chronic kidney disease, stage, IIIB, nonproteinuric. 20. Severe deconditioning and gait dysfunction. 21. Chronic ____, ____ fistula with Escherichia coli urinary tract infection. 22. Moderate aortic and moderate mitral regurgitation. 23. Mild mitral valve prolapse, calcified aortic valve with mild aortic stenosis and moderate aortic regurgitation and moderate mitral regurgitation and mild tricuspid regurgitation with left ventricular ejection fraction of 55%. 24. Gait dysfunction. 25. Deconditioning 26. Anxiety disorder. 27. Dementia. 28. Hypovitaminosis D. 29. Hyperuricemia. 1. Acute renal failure. 2. Questionable sepsis with leukocytosis and granulocytosis. 3. Normocytic anemia. 4. Questionable hemorrhagic cystitis. 5. Questionable hemorrhagic cystitis with intrinsic mural and perivesicular abnormalities and dependent echogenic material debris in the bladder. 6. Left bundle-branch block and left axis deviation. 7. Left lower lung pleural thickening. 8. Cardiomegaly. 9. Sigmoid diverticulosis. 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 11. 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 12. Status post hysterectomy. 13. Sigmoid diverticulosis. 14. Leukocytosis with granulocytosis. 15. Normocytic anemia. 16. Hyponatremia. 17. Slow-resolving acute renal failure. 18. Hyperuricemia. 19. History of dementia. 20. Deconditioning. 21. Gait dysfunction. 22. Recurrent fall. 23. Questionable functional quadriplegia. 24. Hypovitaminosis D. 25. History of dyslipidemia. 26. History of angina, history of hypertension, history of dementia. 1. Altered mental status, etiology undetermined. 2. Acute renal failure and acute kidney injury and prerenal kidney injury. 3. Questionable and possible urinary tract infection. 4. Recurrent fall and gait dysfunction. 5. History of dementia. 6. Questionable swallowing and feeding dysfunction. 7. Leukocytosis with granulocytosis. 8. Normocytic anemia. 9. Hyperuricemia. 10. Hyperphosphatemia. 11. Transaminitis. 12. Elevated BNP with history of congestive heart failure. 13. Hematuria, pyuria, bacteriuria. 14. Left bundle branch block and left axis deviation. 15. Generalized osteopenia and thoracolumbar spondylosis with old healed left rib fracture. 16. Status post mastectomy for left breast carcinoma. 17. Gait dysfunction. 18. Recurrent falls. 19. 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 20. Questionable cystitis with thickened urinary bladder wall. 21. Questionable echogenic urinary bladder mass. 22. History of dementia. 23. History of hypovitaminosis D, history of anxiety, history of dementia, history of congestive heart failure, history of angina, history of dementia. 24. History of colovesicular and colovaginal fistula. PLAN: At this time, the patient has been ordered a Dulcolax suppository today and started on MiraLax for constipation. CURRENT MEDICATIONS: 1. Ativan 0.5 mg twice a day. 2. Coreg 3.125 mg twice a day. 3. Demadex 10 mg daily. 4. Dulcolax suppository 10 mg once stat. 5. Ecotrin 81 daily. 6. Exelon capsule 4.5 mg twice a day. 7. Flagyl 500 mg 3 times a day. 8. Heparin 5000 units subcutaneous 3 times a day. 9. Imdur 30 mg daily. 10. Klonopin 4 mg at bedtime. 11. MiraLax 17 g twice a day. 12. Protonix 40 mg daily. 13. Requip 8 mg daily. 14. Tylenol 650 q. 6 p.r.n. 15. Vitamin D3 2000 units daily. 17. The patient is on oxygen treatment continuous modified, continuous humidified 2 L. The patient has been ordered ADRIANO paulino, SCDs, out of bed. According to the hospital social worker, the patient will be completing her 10 days of stay today and tomorrow. The patient will be considered for discharge home in the morning with case referral to hospital social worker for discharge planning, including referral to A home health aide and home PT. Dictated and electronically signed, not read. Rigo Vargas MD cc: [id number] TT: 11/10/2016 13:11:30 Confirmation # [id number] Dictation # [id number] sn GUEVARA
--- NOTE | 2016-11-10 16:48 | CP.PCM.PN ---
Subjective - Date & Time of Evaluation Date of Evaluation: 11/10/16 Time of Evaluation: 09:55 - Subjective Subjective: Comfortable in bed, not in distress, no fevers. Objective - Vital Signs/Intake and Output Vital Signs (last 24 hours): Temp Pulse Resp BP Pulse Ox 97.8 F 74 18 138/60 93 L 11/10/16 16:00 11/10/16 16:00 11/10/16 16:00 11/10/16 16:00 11/10/16 16:00 - Medications Medications: Current Medications Acetaminophen (Tylenol 325mg Tab) 650 mg PO Q6H PRN PRN Reason: TEMP>=99.5&FOR MILDPAIN&DOMINGO Acetaminophen (Tylenol 650 Mg Supp) 650 mg RC Q6H PRN PRN Reason: TEMP>=99.5&FOR MILDPAIN&DOMINGO Aspirin (Ecotrin) 81 mg PO 0800 [facility] Last Admin: 11/10/16 07:51 Dose: 81 mg Carvedilol (Coreg) 3.125 mg PO 0800,1800 [facility] Last Admin: 11/10/16 07:50 Dose: 3.125 mg Cholecalciferol (Vitamin D) 2,000 iu PO DAILY [facility] Last Admin: 11/10/16 10:58 Dose: 2,000 iu Clonazepam (Klonopin) 4 mg PO HS [facility] Last Admin: 11/09/16 21:21 Dose: 4 mg Heparin Sodium (Porcine) (Heparin) 5,000 units SC 0600,1400,2200 [facility] PRN Reason: Protocol Last Admin: 11/10/16 13:00 Dose: 5,000 units Home Med (Home Med) 1 unit PO DAILY [facility] Last Admin: 11/10/16 10:58 Dose: 1 unit Isosorbide Mononitrate (Imdur) 30 mg PO 0600 [facility] Last Admin: 11/10/16 05:48 Dose: 30 mg Lorazepam (Ativan) 0.5 mg PO BID [facility] PRN Reason: Protocol Last Admin: 11/10/16 10:59 Dose: 0.5 mg Metronidazole (Flagyl) 500 mg PO 0600,1400,2200 [facility] PRN Reason: Protocol Last Admin: 11/10/16 13:00 Dose: 500 mg Pantoprazole Sodium (Protonix Ec Tab) 40 mg PO 0630 [facility] Last Admin: 11/10/16 05:47 Dose: 40 mg Polyethylene Glycol (Miralax) 17 gm PO BID [facility] Rivastigmine (Exelon Cap) 4.5 mg PO 0800,1800 [facility] PRN Reason: Protocol Last Admin: 11/10/16 07:51 Dose: 4.5 mg Ropinirole HCl (Requip) 8 mg PO 0800 [facility] Last Admin: 11/10/16 07:52 Dose: 8 mg Torsemide (Demadex) 10 mg PO DAILY [facility] Last Admin: 11/10/16 10:58 Dose: 10 mg - Labs Labs: 11/08/16 07:30 11/08/16 07:30 - Constitutional Appears: Non-toxic, No Acute Distress - Head Exam Head Exam: NORMAL INSPECTION - ENT Exam ENT Exam: Mucous Membranes Moist - Neck Exam Neck Exam: absent: Lymphadenopathy, Meningismus - Respiratory Exam Respiratory Exam: Decreased Breath Sounds - Cardiovascular Exam Cardiovascular Exam: +S1, +S2 - GI/Abdominal Exam GI & Abdominal Exam: Soft. absent: Tenderness Assessment and Plan - Assessment and Plan (Free Text) Plan: Assessment sepsis secondary to urinary tract infection in a patient with rectovesical fistula, S/P treatment for E.coli chronic renal failure chronic CHF Parkinson's disease history of breast cancer history of rectovesical and rectovaginal fistula Plan continue Flagyl OVerall prognosis is poor
[2016-11-10] MEDS ORDERED: POLYETHYLENE GLYCOL 3350 17 GM/Dose PACKET PO SCH (18:00)
--- NOTE | 2016-11-10 18:29 | CP.PCM.PCO ---
Physician Communication Note - Physician Communication Note Physician Communication Note: Abd firm/distended/NO Urine output measured 3 days -Need CT ABD(PO:IV)
--- NOTE | 2016-11-10 23:54 | CP.PCM.PN ---
Subjective - Date & Time of Evaluation Date of Evaluation: 11/10/16 Time of Evaluation: 18:30 - Subjective Subjective: Patient's family reporting increased abdominal distention over past few days although patient denies any discomfort, tolerating diet well, passing gas per rectum and had good BM earlier in the day; Objective - Vital Signs/Intake and Output Vital Signs (last 24 hours): Temp Pulse Resp BP Pulse Ox 97.8 F 79 18 138/60 93 L 11/10/16 16:00 11/10/16 17:15 11/10/16 16:00 11/10/16 17:15 11/10/16 16:00 Intake and Output: 11/10/16 11/11/16 18:59 06:59 Intake Total 700 Output Total 1190 Balance -490 - Medications Medications: Current Medications Acetaminophen (Tylenol 325mg Tab) 650 mg PO Q6H PRN PRN Reason: TEMP>=99.5&FOR MILDPAIN&DOMINGO Acetaminophen (Tylenol 650 Mg Supp) 650 mg RC Q6H PRN PRN Reason: TEMP>=99.5&FOR MILDPAIN&DOMINGO Aspirin (Ecotrin) 81 mg PO 0800 [facility] Last Admin: 11/10/16 07:51 Dose: 81 mg Carvedilol (Coreg) 3.125 mg PO 0800,1800 [facility] Last Admin: 11/10/16 17:15 Dose: 3.125 mg Cholecalciferol (Vitamin D) 2,000 iu PO DAILY [facility] Last Admin: 11/10/16 10:58 Dose: 2,000 iu Clonazepam (Klonopin) 4 mg PO HS [facility] Last Admin: 11/10/16 21:18 Dose: Not Given Heparin Sodium (Porcine) (Heparin) 5,000 units SC 0600,1400,2200 [facility] PRN Reason: Protocol Last Admin: 11/10/16 21:18 Dose: 5,000 units Home Med (Home Med) 1 unit PO DAILY [facility] Last Admin: 11/10/16 10:58 Dose: 1 unit Isosorbide Mononitrate (Imdur) 30 mg PO 0600 [facility] Last Admin: 11/10/16 05:48 Dose: 30 mg Lorazepam (Ativan) 0.5 mg PO BID [facility] PRN Reason: Protocol Last Admin: 11/10/16 17:15 Dose: 0.5 mg Metronidazole (Flagyl) 500 mg PO 0600,1400,2200 [facility] PRN Reason: Protocol Last Admin: 11/10/16 21:17 Dose: 500 mg Pantoprazole Sodium (Protonix Ec Tab) 40 mg PO 0630 [facility] Last Admin: 11/10/16 05:47 Dose: 40 mg Rivastigmine (Exelon Cap) 4.5 mg PO 0800,1800 [facility] PRN Reason: Protocol Last Admin: 11/10/16 17:17 Dose: 4.5 mg Ropinirole HCl (Requip) 8 mg PO 0800 [facility] Last Admin: 11/10/16 07:52 Dose: 8 mg Torsemide (Demadex) 10 mg PO DAILY [facility] Last Admin: 11/10/16 10:58 Dose: 10 mg - Labs Labs: 11/08/16 07:30 11/08/16 07:30 - Constitutional Appears: Well, No Acute Distress - Head Exam Head Exam: NORMAL INSPECTION - Eye Exam Eye Exam: Normal appearance. absent: Scleral icterus - ENT Exam ENT Exam: Mucous Membranes Moist - Neck Exam Neck Exam: Normal Inspection - Respiratory Exam Respiratory Exam: Clear to Ausculation Bilateral, NORMAL BREATHING PATTERN. absent: Rales, Rhonchi, Wheezes - Cardiovascular Exam Cardiovascular Exam: REGULAR RHYTHM, +S1, +S2 - GI/Abdominal Exam GI & Abdominal Exam: Distended. absent: Tenderness Additional comments: Markedly distended but non-tender; - Extremities Exam Additional comments: Mild bilateral lower leg edema; - Neurological Exam Neurological Exam: Alert, Awake - Psychiatric Exam Psychiatric exam: Normal Affect, Normal Mood - Skin Skin Exam: Normal Color, Warm Assessment and Plan (1) HTN (hypertension) Assessment & Plan: Controlled on low dose coreg, imdur and diuretics; continue same; Status: Acute (2) Urinary tract infection Assessment & Plan: Admitted with UTI sepsis that has resolved but still concern for ongoing bacterial seeding from recto-vesical fistula; currently on flagyl; f/u with ID; Status: Acute (3) CHF (congestive heart failure) Assessment & Plan: Currently asymptomatic; on low dose coreg; can restart low dose losartan for cardiac optimization; Status: Chronic (4) CKD (chronic kidney disease) Assessment & Plan: Stage II-III disease; difficult to assess proteinuria in the setting of recto- vesical fistula but negative for albuminuria per dipstick UA; will continue to monitor as oupatient; Status: Chronic (5) Urinary retention Assessment & Plan: Secondary to power misplacement/malfunction; >700 cc UO after replacing power for the second time today; monitor for post-obstructive diuresis; Status: Acute
[2016-11-11] MEDS: Pantoprazole 40 mg EC Tab PO SCH (05:31)
--- NOTE | 2016-11-11 07:37 | CP.PCM.PCO ---
Physician Communication Note - Physician Communication Note Physician Communication Note: New [id number] to evaluate fistula today
[2016-11-11] MEDS: SELENIUM 200 MCG PO SCH (09:43)
--- NOTE | 2016-11-11 11:01 | PN ---
DATE: 11/11/2016 The patient is seen lying in the bed in room 315, bed 1. Overnight events were noted. The patient required reinsertion of Ramirez catheter. The patient was found to be in retention. The patient drained more than 700 mL of urine after replacement and change of Ramirez, for abdominal distention and urinary retention. The patient was seen lying in the bed in room 315. The patient's son and are at bedside. The patient is lying in the bed. The patient appears to be comfortable. The patient does not offer any specific complaints. The patient does not appear to be in distress. PHYSICAL EXAMINATION: VITAL SIGNS: T-max is 98.0, pulse 80, blood pressure 143/64, respirations 18, O2 sat is 94%, 95%, 93%. INTAKE AND OUTPUT: Intake 700, output 1190. HEAD: Normocephalic, atraumatic. HEENT: Shows pinkish, pale conjunctivae, anicteric sclerae. No oropharyngeal lesion. NECK: No neck rigidity. CHEST: Kyphosis. LUNGS: Shows no rales, crackles, or wheezing. CARDIOVASCULAR: Shows S1, S2, regular rhythm, positive systolic murmur right second intercostal space, left sternal border, left second intercostal space. ABDOMEN: Soft, less distended, no firmness. GENITALIA: Female. Positive Ramirez catheter. EXTREMITIES: Shows SCDs, slight ankle swelling, no pitting edema, no calf tenderness, no Joan sign. NEUROLOGIC: The patient is alert, awake, responsive, is able to move upper and lower extremities without assistance. Gait examination is not tested. MUSCULOSKELETAL: Shows a body mass index of 22. Cranial nerves II-XII limited. GAIT: Could not be tested. The patient is lying in the bed. DIAGNOSTICS: None from today. The patient seen by Dr. Alfredo yesterday and today. His recommendations were noted and informed the patient's family. The patient has been ordered CAT scan of the abdomen and pelvis by Dr. Alfredo. The patient's son and spouse wants to speak to Dr. Alfredo, which I have actually asked the air conditioning unit tester to have Dr. Alfredo' office to be contacted for the patient's spouse and son to discuss the CAT scan and further surgical recommendation. IMPRESSION AND PLAN: 1. Severe deconditioning, severe gait dysfunction and possible questionable functional quadriplegia. 2. Urinary retention. 3. Colovesicular and colovaginal fistula. 4. Abdominal distention, probably secondary to urinary retention. 5. Sepsis secondary to Escherichia coli urinary tract infection and colovesicular and colovaginal fistula. 6. Hypertension. 7. Questionable ileus with constipation, fecal retention, fecal stasis. 8. Asymptomatic hypoxemia. 9. Status post acute renal failure. 10. Normocytic iron deficiency anemia. 11. Status post IV Venofer infusion. 12. Leukocytosis with granulocytosis. 13. Status post acute renal failure. 14. Hypocalcemia. 15. Mild hypoalbuminemia. 16. History of anxiety disorder, history of dementia, history of depression, history of Parkinson's disease, hypovitaminosis D. 1. Severe deconditioning and gait dysfunction. 2. Deconditioning. 3. Questionable constipation and fecal retention. 4. Asymptomatic hypoxemia. 5. Leukocytosis with granulocytosis. 6. Normocytic anemia. 7. Prerenal kidney injury. 8. Status post acute renal failure. 9. 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 10. Deconditioning. 11. Gait dysfunction. 12. Sepsis secondary to Escherichia coli urinary tract infection. 13. History of colovesicular colovaginal fistula. 14. Dementia. 15. History of Parkinson disease. 16. History of anxiety disorder. 17. History of constipation. 1. Severe deconditioning and gait dysfunction. 2. Possible functional quadriplegia. 3. Nonproteinuric chronic kidney disease stage III. 4. Acute renal failure, secondary to prerenal kidney injury (resolved). 5. Mild venous stasis of the lower extremities. 6. Sepsis with Escherichia coli urinary tract infection. 7. Rectovesical and rectovaginal fistula. 8. Deconditioning. 9. Gait dysfunction. 10. Normocytic anemia. 11. Normocytic iron deficiency anemia. 12. Leukocytosis with granulocytosis. 13. Hypocalcemia. 14. Hypokalemia. 1. Severe gait dysfunction and deconditioning and possible functional quadriplegia. 2. Sepsis secondary to Escherichia coli urinary tract infection with history of rectovaginal, rectovesical fistula. 3. Escherichia coli urinary tract infection. 4. Acute renal failure. 5. Hypoxemia. 6. Normocytic anemia. 7. Leukocytosis with granulocytosis. 8. Status post acute renal failure. 9. Hypocalcemia. 10. Mild hypoalbuminemia. 11. History of dementia, Parkinson's disease, anxiety, and possible depression. 12. Prerenal kidney injury. 13. Non-proteinuric chronic kidney disease stage III. 14. History of anxiety. 15. History of dementia, history of depression, history of hypovitaminosis D. 1. Severe deconditioning and gait dysfunction and possible bedridden status and possible functional quadriplegia. 2. Sepsis secondary to a Escherichia coli urinary tract infection with history of vaginal and rectovesical fistula. 3. Deconditioning. 4. Escherichia coli urinary tract infection. 5. Acute renal failure. 6. History of hypertension. 7. Asymptomatic hypoxemia. 8. Kyphosis of the thoracic spine. 9. Hypoalbuminemia. 10. Hypocalcemia. 11. Normocytic anemia. 12. Hypokalemia. 13. Oropharyngeal dysphagia with impulsive and unsafe eating behaviors. 14. History of anxiety disorder. 15. History of dementia. 16. History of Parkinson disease. 17. History of normocytic iron deficiency anemia. 1. Severe gait dysfunction, deconditioning and bedridden status. 2. Questionable and possible functional quadriplegia. 3. Escherichia coli urinary tract infection. 4. Acute renal failure. 5. Systemic inflammatory response syndrome versus possible sepsis secondary to Escherichia coli urinary tract infection. 6. Colovesical and colovaginal fistula. 7. History of hypertension. 8. Asymptomatic hypoxemia. 9. Normocytic iron deficiency anemia. 10. Normal potassium. 11 Acute renal failure with mild prerenal kidney injury. 12. Non-proteinuric chronic kidney disease stage III/IV. 13. Hypocalcemia. 14. Hypoalbuminemia. 15. Malnutrition. 16. History of anxiety disorder. 17. History of dementia. 18. Iron deficiency normocytic anemia. 19. History of anxiety disorder. 20. Hypovitaminosis D. 21. Hyperuricemia. 22. Deconditioning. 1. Acute renal failure. 2. Systemic inflammatory response syndrome versus possible sepsis secondary to Escherichia coli urinary tract infection. 3. Colovesicular and colovaginal fistula. 4. Acute renal failure. 5. Poor compliance. 6. Severe gait deconditioning and severe gait dysfunction and bedridden status. 7. Functional quadriplegia. 8. Transient asymptomatic hypoxemia. 9. Leukocytosis with granulocytosis. 10. Normocytic iron deficiency anemia. 11. Transient hypernatremia. 12. Acute renal failure. 13. Hyperuricemia. 14. Transaminitis. 15. . 16. Hyperuricemia. 17. Iron deficiency normocytic anemia. 18. Escherichia coli urinary tract infection with proteinuria, hematuria, bacteriuria and pyuria. 19. Sepsis secondary to Escherichia coli urinary tract infection. 20. Mild aortic stenosis. 21. Moderate aortic regurgitation, moderate mitral regurgitation and mild tricuspid regurgitation. 22. History of anxiety disorder, history of dementia, history of hypovitaminosis D and hyperuricemia. 1. Acute renal failure. 2. Questionable sepsis with leukocytosis, granulocytosis. 3. Normocytic anemia. 4. Hypertension. 5. History of dementia. 6. Leukocytosis with granulocytosis. 7. Normocytic anemia. 8. Transient hypernatremia. 9. Acute kidney injury and acute renal failure (resolving). 10. Severe gait dysfunction, deconditioning and possible functional quadriplegia. 11. Hyperuricemia. 12. Transaminitis. 13. Hyperprocalcitoninemia. 14. Hypovitaminosis D. 15. Acute renal failure and acute kidney injury. 16. Escherichia coli urinary tract infection with hematuria, pyuria, bacteriuria. 17. Systemic inflammatory response syndrome with possible sepsis secondary to Escherichia coli urinary tract infection with ____vaginal and ____ fistula. 18. Prerenal azotemia. 19. Chronic kidney disease, stage, IIIB, nonproteinuric. 20. Severe deconditioning and gait dysfunction. 21. Chronic ____, ____ fistula with Escherichia coli urinary tract infection. 22. Moderate aortic and moderate mitral regurgitation. 23. Mild mitral valve prolapse, calcified aortic valve with mild aortic stenosis and moderate aortic regurgitation and moderate mitral regurgitation and mild tricuspid regurgitation with left ventricular ejection fraction of 55%. 24. Gait dysfunction. 25. Deconditioning 26. Anxiety disorder. 27. Dementia. 28. Hypovitaminosis D. 29. Hyperuricemia. 1. Acute renal failure. 2. Questionable sepsis with leukocytosis and granulocytosis. 3. Normocytic anemia. 4. Questionable hemorrhagic cystitis. 5. Questionable hemorrhagic cystitis with intrinsic mural and perivesicular abnormalities and dependent echogenic material debris in the bladder. 6. Left bundle-branch block and left axis deviation. 7. Left lower lung pleural thickening. 8. Cardiomegaly. 9. Sigmoid diverticulosis. 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 11. 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 12. Status post hysterectomy. 13. Sigmoid diverticulosis. 14. Leukocytosis with granulocytosis. 15. Normocytic anemia. 16. Hyponatremia. 17. Slow-resolving acute renal failure. 18. Hyperuricemia. 19. History of dementia. 20. Deconditioning. 21. Gait dysfunction. 22. Recurrent fall. 23. Questionable functional quadriplegia. 24. Hypovitaminosis D. 25. History of dyslipidemia. 26. History of angina, history of hypertension, history of dementia. 1. Altered mental status, etiology undetermined. 2. Acute renal failure and acute kidney injury and prerenal kidney injury. 3. Questionable and possible urinary tract infection. 4. Recurrent fall and gait dysfunction. 5. History of dementia. 6. Questionable swallowing and feeding dysfunction. 7. Leukocytosis with granulocytosis. 8. Normocytic anemia. 9. Hyperuricemia. 10. Hyperphosphatemia. 11. Transaminitis. 12. Elevated BNP with history of congestive heart failure. 13. Hematuria, pyuria, bacteriuria. 14. Left bundle branch block and left axis deviation. 15. Generalized osteopenia and thoracolumbar spondylosis with old healed left rib fracture. 16. Status post mastectomy for left breast carcinoma. 17. Gait dysfunction. 18. Recurrent falls. 19. 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 20. Questionable cystitis with thickened urinary bladder wall. 21. Questionable echogenic urinary bladder mass. 22. History of dementia. 23. History of hypovitaminosis D, history of anxiety, history of dementia, history of congestive heart failure, history of angina, history of dementia. 24. History of colovesicular and colovaginal fistula. PLAN: At this time, the patient has been seen by infectious disease, nephrology and surgery. The patient has been ordered a CAT scan of the abdomen and pelvis by Dr. Alfredo. CURRENT MEDICATIONS: 1. Ativan 0.5 mg twice a day. 2. Coreg 3.125 mg twice a day. 3. Demadex 10 mg daily. 4. Aspirin 81 mg daily. 5. Exelon 4.5 mg twice a day. 6. Flagyl 500 mg q. 8. 7. Heparin 5000 subQ q. 8. 8. The patient is on selenium 200 mcg p.o. daily. 9. Imdur 30 mg daily. 10. Klonopin 4 mg at bedtime. 11. Protonix 40 mg daily. 12. Requip 8 mg daily. 13. Tylenol 650 suppository q. 6 hours p.r.n. 14. Vitamin D3 2000 units daily. Oxygen 2 liters continuous humidified has been ordered. The patient has been ordered out of bed, ADRIANO stockings, SCDs, Ramirez catheter insertion, occupational therapy, physical therapy ordered. At present, patient's further management plan is dependent upon the recommendation by surgery and depending upon the CAT scan results and depending upon the patient's family's decision about the recommendation from surgery by Dr. Alfredo. The patient's discharge will be dependent upon the above, which has been explained to the patient's son and the spouse at length. I have advised the patient's son and the spouse to discuss further details with Dr. Alfredo regarding the surgical options and treatment plan, whether they want to proceed with the surgical recommendation for surgery. All of the above have been explained and discussed with the patient's spouse and the son on multiple occasions during the transitional care unit, in acute care hospitalization in layman's language. All questions and concerns answered. Dictated and electronically signed, not read. Rigo Vargas MD cc: [id number] TT: 11/11/2016 11:00:17 Confirmation # [id number] Dictation # [id number] angela GUEVARA
[2016-11-11 15:54] VITALS: RESP 22
--- NOTE | 2016-11-11 16:05 | CP.PCM.PN ---
Subjective - Date & Time of Evaluation Date of Evaluation: 11/11/16 Time of Evaluation: 10:30 - Subjective Subjective: Comfortable in bed, not in distress, no fevers overnight. Objective - Vital Signs/Intake and Output Vital Signs (last 24 hours): Temp Pulse Resp BP Pulse Ox 98.3 F 91 H 22 156/96 H 91 L 11/11/16 10:00 11/11/16 10:00 11/11/16 10:00 11/11/16 10:00 11/11/16 10:00 Intake and Output: 11/11/16 11/11/16 06:59 18:59 Intake Total 700 Output Total 1190 200 Balance -490 -200 - Medications Medications: Current Medications Acetaminophen (Tylenol 325mg Tab) 650 mg PO Q6H PRN PRN Reason: TEMP>=99.5&FOR MILDPAIN&DOMINGO Acetaminophen (Tylenol 650 Mg Supp) 650 mg RC Q6H PRN PRN Reason: TEMP>=99.5&FOR MILDPAIN&DOMINGO Aspirin (Ecotrin) 81 mg PO 0800 [facility] Last Admin: 11/11/16 08:05 Dose: 81 mg Carvedilol (Coreg) 3.125 mg PO 0800,1800 [facility] Last Admin: 11/11/16 08:05 Dose: 3.125 mg Cholecalciferol (Vitamin D) 2,000 iu PO DAILY [facility] Last Admin: 11/11/16 09:43 Dose: 2,000 iu Clonazepam (Klonopin) 4 mg PO HS [facility] Last Admin: 11/10/16 21:18 Dose: Not Given Heparin Sodium (Porcine) (Heparin) 5,000 units SC 0600,1400,2200 [facility] PRN Reason: Protocol Last Admin: 11/11/16 14:39 Dose: 5,000 units Home Med (Home Med) 1 unit PO DAILY [facility] Last Admin: 11/11/16 09:43 Dose: 1 unit Isosorbide Mononitrate (Imdur) 30 mg PO 0600 [facility] Last Admin: 11/11/16 05:25 Dose: 30 mg Lorazepam (Ativan) 0.5 mg PO BID [facility] PRN Reason: Protocol Last Admin: 11/11/16 09:44 Dose: 0.5 mg Metronidazole (Flagyl) 500 mg PO 0600,1400,2200 [facility] PRN Reason: Protocol Last Admin: 11/11/16 14:48 Dose: 500 mg Pantoprazole Sodium (Protonix Ec Tab) 40 mg PO 0630 [facility] Last Admin: 11/11/16 05:31 Dose: 40 mg Rivastigmine (Exelon Cap) 4.5 mg PO 0800,1800 [facility] PRN Reason: Protocol Last Admin: 11/11/16 08:06 Dose: 4.5 mg Ropinirole HCl (Requip) 8 mg PO 0800 [facility] Last Admin: 11/11/16 08:06 Dose: 8 mg Torsemide (Demadex) 10 mg PO DAILY [facility] Last Admin: 11/11/16 09:42 Dose: 10 mg - Labs Labs: 11/08/16 07:30 11/08/16 07:30 - Constitutional Appears: Non-toxic, No Acute Distress - Head Exam Head Exam: NORMAL INSPECTION - ENT Exam ENT Exam: Mucous Membranes Moist - Neck Exam Neck Exam: absent: Lymphadenopathy, Meningismus - Respiratory Exam Respiratory Exam: Decreased Breath Sounds - Cardiovascular Exam Cardiovascular Exam: +S1, +S2 - GI/Abdominal Exam GI & Abdominal Exam: Soft. absent: Tenderness Assessment and Plan - Assessment and Plan (Free Text) Plan: Assessment S/P sepsis secondary to urinary tract infection in a patient with rectovesical fistula, S/P treatment for E.coli chronic renal failure chronic CHF Parkinson's disease history of breast cancer history of rectovesical and rectovaginal fistula Plan because of the rectovesical fistula, will continue Flagyl Overall prognosis is poor; follow up recommendations of Surgery
--- NOTE | 2016-11-11 18:21 | CP.PCM.PCO ---
Physician Communication Note - Physician Communication Note Physician Communication Note: Fecal obstructed bladder/No hydronephrosis-Needs Cystostomy/Colostomy
--- NOTE | 2016-11-11 22:08 | PN ---
DATE: 11/11/2016 NEPHROLOGY FOLLOWUP NOTE An 81-year-old female with history of hypertension, CHF, CKD, and known rectovesical/rectovaginal fis gerardo, admitted with UTI sepsis; currently in TCU. The patient reports feeling well. Denies any abdominal pain. Reportedly tolerating diet. Again, had Ramirez changed today to 24-Greenlandic and started on bladder irrigation. VITALS THIS MORNING: Blood pressure 156/96, heart rate of 91, respirations 22, temperature 98.3, O2 sat 91% on room air. EXAMINATION: GENERAL: No distress. Able to converse coherently in full sentences. HEENT: Moist mucous membranes. Nonicteric. CHEST: Mild basal rales bilaterally. No wheezes, no rhonchi. HEART: Soft systolic murmur. ABDOMEN: Moderately distended, nontender. EXTREMITIES: Mild lower leg edema bilaterally. LABORATORY DATA: No new labs available today. ASSESSMENT: 1. Bladder distention. The patient with distended abdomen for the last 2-[address] abdomen and pel vis done today with IV contrast, showing marked severely distended bladder with air fluid level and F oley catheter present. No hydronephrosis seen. The patient with known rectovesical fistula with fec ulent material seen in urine intermittently. Had been given surgical option in order to prevent recu rrent UTI. However, the patient/family refused this option at this point. Bladder distention possib ly due to collection of fecal material, which may be intermittently obstructing Ramirez catheter. Fole y has been changed 3 times since yesterday, with 700 mL drained yesterday upon changing Ramirez, and si milar amount today again upon changing Ramirez. Urology being consulted in this regard. Will await re commendations. Will check labs tomorrow. 2. Chronic kidney disease, stage II-III. Last serum creatinine had been stable at 1.0. As noted in previous notes, that dipstick UA negative for albuminuria. However, mild proteinuria seen per urine protein/creatinine ratio, although significance is unclear in the setting of fecal contamination. CT abdomen/pelvis done today shows thin renal cortices consistent with CKD. 3. Urinary tract infection. Admitted with UTI sepsis that has resolved, but still concerned for ongo ing bacterial seeding from rectovesical fistula. Currently on Flagyl per ID recommendations. 4. Congestive heart failure. The patient with bilateral pleural effusions on CT. Has history of sys tolic dysfunction, currently on low dose Coreg for cardiac optimization. Should start losartan once acute issues have been resolved. Will need to increase torsemide to b.i.d. dosing. Currently gettin g 10 mg once daily. 5. Hypertension. Elevated blood pressure readings today, but otherwise had been controlled on low do se Coreg and Imdur, as well as diuretics. Continue the same for now, with the diuretic change as not ed above. Wally Ash MD cc: [id number] TT: 11/11/2016 22:08:24 Confirmation # [id number] Dictation # [id number] william
[2016-11-12] MEDS: Pantoprazole 40 mg EC Tab PO SCH (05:30)
--- NOTE | 2016-11-12 07:45 | CP.PCM.PCO ---
Physician Communication Note - Physician Communication Note Physician Communication Note: 24fr power with irrigation/Needs Cystostomy- colostomy
[2016-11-12 09:20] LABS: ADD MANUAL DIFF? NO
[2016-11-12 09:31] LABS: BASO # 0.01 K/mm3 (0.0-2.0); BASO % 0.1 % (0.0-3.0); EOS % 0.3 % (1.5-5.0); GRAN # 11.54 (1.4-6.5); GRAN % 80.8 % (50.0-68.0); HEMATOCRIT 37.3 % (36.0-48.0); LYMPH # 1.7 (1.2-3.4); LYMPH % 12.1 % (22.0-35.0); MEAN CELL VOLUME 94.7 fL (80.0-105.0); MEAN CORPUSCULAR HEMOGLOBIN 30.5 pg (25.0-35.0); MEAN CORPUSCULAR HGB CONC 32.2 g/dl (31.0-37.0); MEAN PLATELET VOLUME 9.3 fl (7.0-11.0); MONO % 6.7 % (1.0-6.0); PLATELET COUNT 499 10^3/uL (120.0-450.0); RED CELL DISTRIBUTION WIDTH 18.4 % (11.5-14.5); WHITE BLOOD COUNT 14.3 10^3/ul (4.5-11.0)
[2016-11-12 09:34] LABS: ALB/GLOB RATIO 0.8 (1.1-1.8); BILIRUBIN,TOTAL 0.6 mg/dL (0.2-1.3); CALCIUM 8.7 mg/dL (8.4-10.5); MAGNESIUM 1.7 mg/dL (1.7-2.2); TOTAL PROTEIN 7.7 g/dL (5.8-8.3)
[2016-11-12 09:37] LABS: POTASSIUM 3.7 mmol/L (3.6-5.0)
[2016-11-12] MEDS: SELENIUM 200 MCG PO SCH (10:05)
[2016-11-12 11:02] VITALS: BP 144/76; PULSE 131; TEMP 98.5; O2SAT 97
--- NOTE | 2016-11-12 11:46 | PCM.URO ---
Urology Progress Note - Objective Lab Results Last 24 Hours: Laboratory Results - last 24 hr 11/12/16 09:18 WBC 14.3 H D RBC 3.94 Hgb 12.0 Hct 37.3 MCV 94.7 MCH 30.5 MCHC 32.2 RDW 18.4 H Plt Count 499 H MPV 9.3 Gran % 80.8 H Lymph % (Auto) 12.1 L Thomas % (Auto) 6.7 H Eos % (Auto) 0.3 L Baso % (Auto) 0.1 Gran # 11.54 H Lymph # 1.7 Thomas # 1.0 H Eos # 0.0 Baso # 0.01 Sodium 145 Potassium 3.7 Chloride 112 H Carbon Dioxide 22 Anion Gap 15 BUN 37 H Creatinine 1.5 H Est GFR ( Amer) 40 Est GFR (Non-Af Amer) 33 Random Glucose 136 H Calcium 8.7 Phosphorus 4.0 Magnesium 1.7 Total Bilirubin 0.6 AST 27 ALT 27 Alkaline Phosphatase 69 Total Protein 7.7 Albumin 3.4 Globulin 4.2 Albumin/Globulin Ratio 0.8 L Intake & Output: Intake & Output 11/11/16 11/12/16 11/12/16 18:59 06:59 18:59 Intake Total 360 Output Total 200 Balance -200 360 Intake: Oral 360 Output: Urine 200 Urethral (Ramirez) 200 Other: Voiding Method Indwelling Catheter # Voids Urine, Voided 2 Urethral (Ramirez) 600 Vital Signs: Vital Signs - 24 hr 11/11/16 11/12/16 11/12/16 17:16 07:53 10:00 Temperature 98.5 F Pulse Rate 91 H 107 H 131 H Respiratory 22 Rate Blood Pressure 156/96 H 153/85 H 144/76 O2 Sat by Pulse 97 Oximetry
[2016-11-12] MEDS ORDERED: Sodium Chloride 0.9% 1,000 ML IV SCH (12:45)
[2016-11-12] MEDS ORDERED: Cefepime 1gm in NS 100ml 100 ML IVPB SCH (13:00)
--- NOTE | 2016-11-12 14:07 | CON ---
DATE: 11/12/2016 The patient in room 315, bed 1. REASON FOR CONSULTATION: Preop evaluation, risk stratification from cardiac point of view, for surge ry for colovesical fistula and colovaginal fistula. HISTORY OF PRESENT ILLNESS: The patient is an 81-year-old female admitted here, is being evaluated f or closure of colovesical fistula and colovaginal fistula. The patient was initially admitted on the medical floor and she was stabilized and now she is in transitional care unit. The patient lying fl at in bed without chest pain, shortness of breath, or palpitation. The patient known to have hyperte nsion, hyperlipidemia, mild aortic stenosis, moderate aortic regurg, moderate mitral regurg, mild tri cuspid regurg. PREVIOUS CARDIAC WORK: The patient had echo on 10/23/2016 which showed LV ejection fraction 55%, mil d mitral valve prolapse, aortic valve calcified, shows mild aortic stenosis, moderate aortic regurg, moderate mitral regurg, mild tricuspid regurg. The patient has refused stress test multiple times. PERSONAL HISTORY: Denies smoking, denies drinking. ALLERGIES: None. MEDICATIONS AT HOME: Vytorin, vitamin E, torsemide, selenium, Requip, Exelon patch, losartan, loraze darrion, isosorbide mono, carvedilol, aspirin. REVIEW OF SYSTEMS: All the systems were reviewed. Positives mentioned in the history, others were n egative. PHYSICAL EXAMINATION: VITAL SIGNS: Blood pressure 144/76, respirations 22, pulse while I am examining is about 104 per min tatitlek but her pulse recorded is 131. Temperature 98.5. HEENT: Head is normocephalic. Eyes: Pupils normal. Conjunctivae slightly pale. NECK: JVP low. Carotid equal. THORAX: AP diameter normal. LUNGS: No rales. CARDIOVASCULAR: S1, S2, systolic murmur, no rub. ABDOMEN: Distended, bowel sounds normal. EXTREMITIES: No clubbing, no cyanosis, no edema on the legs. LABORATORY DATA: WBC 14.3, hemoglobin 12.0, hematocrit 37.3, platelet 499. Sodium 145, potassium 3. 7, BUN 37, creatinine 1.5. On 10/29/2016, patient's BUN was 123 with creatinine 2.3. On 11/08/2016, BU N was 20 with creatinine 1.0. Today, BUN is 37 with creatinine 1.5. Calcium, phosphorus, magnesium normal. Total protein 7.7, albumin 4.2. Chest x-ray on 11/01/2016 with no active disease. CT abdomen and pelvis showed a small bilateral pleural effusion, bibasilar atelectasis, severely distended blad min with an air fluid level. EKG is not available. DIAGNOSES: Rectovesical fistula, rectovaginal fistula, left bundle branch block on EKG, mild aortic stenosis, moderate aortic regurgitation, moderate mitral regurgitation, preserved left ventricular fu nction with ejection fraction of 55%. Hypertension. At times, according to family, patient is confu sed. RECOMMENDATION AND PLAN: The patient is going to be high risk surgery because of underlying comorbid ities. The patient can go for surgery considering the risk/benefit ratio. The patient is a very hig h risk for surgery, but there is no absolute contraindication from cardiac point of view. In the lisha ntime, patient is on carvedilol 6.25 p.o. b.i.d. The patient also on carvedilol 3.125 p.o. b.i.d., s o we will discontinue the 3.125 p.o. b.i.d. and we will continue carvedilol 6.25 b.i.d., aspirin 81 m g daily, metronidazole 500 mg p.o. t.i.d., isosorbide mono 30 daily, cefepime 1 gram IV q.12 hours, a spirin 81 mg daily, sodium chloride 0.9% at 100 mL an hour. Agree with IV fluid therapy. This case discussed with the surgeon, Dr. Alfredo. Also, case discussed in detail with the and the son. Explained patient's condition and surgical options. They are still thinking about surg ical options. We will continue to follow closely with you. Bishop Peoples MD cc: [id number] TT: 11/12/2016 14:07:13 Confirmation # [id number] Dictation # [id number]
--- NOTE | 2016-11-12 14:40 | DS ---
The patient is seen in room 315, bed 1, with patient's son and the at bedside. The patient is lying in the bed. The patient is comfortable. Overnight nurse's notes were reviewed. The patient is having continuous pull of the Ramirez last night. The patient had a large amount of light brown fecal material coming out of the vagina. The patient is having bowel material via her Ramirez. The patient this morning was seen by Dr. Acosta. PHYSICAL EXAMINATION: VITAL SIGNS: T-max 98.5, heart rate 91, 107, 131, blood pressure 144/76, 153/85 , 156/96, respirations 22, O2 sat 97. GENERAL: The patient is lying in the bed. HEENT: Normocephalic, atraumatic. Eyes, shows pinkish, pale conjunctivae. Dry oral mucosa. NECK: No neck rigidity. CHEST: Kyphosis. LUNGS: Shows no rales, crackles, or wheezing. CARDIOVASCULAR: S1, S2, regular rhythm, positive systolic murmur right second intercostal space, left sternal border, left second intercostal space. ABDOMEN: Distended, protuberant, suprapubic tenderness. GENITALIA: Female. EXTREMITIES: Shows positive SCDs. Trace swelling of the ankle. There is no pitting edema of the legs. MUSCULOSKELETAL: Shows a body mass index of 28. NEUROLOGIC: Cranial nerves II-XII limited. GAIT: Not tested. The patient is seen lying in the bed. The patient does not appear to be in any distress. DIAGNOSTICS: On 11/12, WBC 14.3, hemoglobin and hematocrit 12 and 37.3, platelets 499, granulocytes 81% segs. Sodium 145, potassium 3.7, chloride 112, CO2 of 22, anion gap 15, BUN 37, creatinine 1.5. GFR 40, glucose 136, calcium 8.7, phosphorus 4.0, magnesium 1.7. The patient seen by urology and the patient's urology progress note was reviewed. There are no recommendations noted on the urology progress note. The patient was seen by general surgery, Dr. Alfredo. The recommendations by general surgery are patient needs cystostomy and colostomy, which has been extensively discussed and explained to the patient and the patient's and the son by all the physicians involved, but patient's son and wish to proceed first with cystostomy and not with colostomy at this time. FINAL IMPRESSION, PLAN, AND DISCHARGE DIAGNOSES: 1. Recurrent urinary retention with urinary bladder distention. 2. Severe deconditioning and gait dysfunction. 3. Functional quadriplegia with severe deconditioning and gait dysfunction and bedridden status. 4. Small bilateral pleural effusion and bibasilar atelectasis. 5. Questionable sigmoid colitis with mural thickening. 6. Urinary retention with distended urinary bladder with air fluid level. 7. Hypertension. 8. Tachycardia. 9. Leukocytosis with granulocytosis. 10. Questionable systemic inflammatory response syndrome. 11. Normocytic anemia. 12. Acute recurrent kidney injury. 13. 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 14. Normocytic iron deficiency anemia. 15. Chronic kidney disease stage II/III. 1. Severe deconditioning, severe gait dysfunction and possible questionable functional quadriplegia. 2. Urinary retention. 3. Colovesicular and colovaginal fistula. 4. Abdominal distention, probably secondary to urinary retention. 5. Sepsis secondary to Escherichia coli urinary tract infection and colovesicular and colovaginal fistula. 6. Hypertension. 7. Questionable ileus with constipation, fecal retention, fecal stasis. 8. Asymptomatic hypoxemia. 9. Status post acute renal failure. 10. Normocytic iron deficiency anemia. 11. Status post IV Venofer infusion. 12. Leukocytosis with granulocytosis. 13. Status post acute renal failure. 14. Hypocalcemia. 15. Mild hypoalbuminemia. 16. History of anxiety disorder, history of dementia, history of depression, history of Parkinson's disease, hypovitaminosis D. 1. Severe deconditioning and gait dysfunction. 2. Deconditioning. 3. Questionable constipation and fecal retention. 4. Asymptomatic hypoxemia. 5. Leukocytosis with granulocytosis. 6. Normocytic anemia. 7. Prerenal kidney injury. 8. Status post acute renal failure. 9. 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 10. Deconditioning. 11. Gait dysfunction. 12. Sepsis secondary to Escherichia coli urinary tract infection. 13. History of colovesicular colovaginal fistula. 14. Dementia. 15. History of Parkinson disease. 16. History of anxiety disorder. 17. History of constipation. 1. Severe deconditioning and gait dysfunction. 2. Possible functional quadriplegia. 3. Nonproteinuric chronic kidney disease stage III. 4. Acute renal failure, secondary to prerenal kidney injury (resolved). 5. Mild venous stasis of the lower extremities. 6. Sepsis with Escherichia coli urinary tract infection. 7. Rectovesical and rectovaginal fistula. 8. Deconditioning. 9. Gait dysfunction. 10. Normocytic anemia. 11. Normocytic iron deficiency anemia. 12. Leukocytosis with granulocytosis. 13. Hypocalcemia. 14. Hypokalemia. 1. Severe gait dysfunction and deconditioning and possible functional quadriplegia. 2. Sepsis secondary to Escherichia coli urinary tract infection with history of rectovaginal, rectovesical fistula. 3. Escherichia coli urinary tract infection. 4. Acute renal failure. 5. Hypoxemia. 6. Normocytic anemia. 7. Leukocytosis with granulocytosis. 8. Status post acute renal failure. 9. Hypocalcemia. 10. Mild hypoalbuminemia. 11. History of dementia, Parkinson's disease, anxiety, and possible depression. 12. Prerenal kidney injury. 13. Non-proteinuric chronic kidney disease stage III. 14. History of anxiety. 15. History of dementia, history of depression, history of hypovitaminosis D. 1. Severe deconditioning and gait dysfunction and possible bedridden status and possible functional quadriplegia. 2. Sepsis secondary to a Escherichia coli urinary tract infection with history of vaginal and rectovesical fistula. 3. Deconditioning. 4. Escherichia coli urinary tract infection. 5. Acute renal failure. 6. History of hypertension. 7. Asymptomatic hypoxemia. 8. Kyphosis of the thoracic spine. 9. Hypoalbuminemia. 10. Hypocalcemia. 11. Normocytic anemia. 12. Hypokalemia. 13. Oropharyngeal dysphagia with impulsive and unsafe eating behaviors. 14. History of anxiety disorder. 15. History of dementia. 16. History of Parkinson disease. 17. History of normocytic iron deficiency anemia. 1. Severe gait dysfunction, deconditioning and bedridden status. 2. Questionable and possible functional quadriplegia. 3. Escherichia coli urinary tract infection. 4. Acute renal failure. 5. Systemic inflammatory response syndrome versus possible sepsis secondary to Escherichia coli urinary tract infection. 6. Colovesical and colovaginal fistula. 7. History of hypertension. 8. Asymptomatic hypoxemia. 9. Normocytic iron deficiency anemia. 10. Normal potassium. 11 Acute renal failure with mild prerenal kidney injury. 12. Non-proteinuric chronic kidney disease stage III/IV. 13. Hypocalcemia. 14. Hypoalbuminemia. 15. Malnutrition. 16. History of anxiety disorder. 17. History of dementia. 18. Iron deficiency normocytic anemia. 19. History of anxiety disorder. 20. Hypovitaminosis D. 21. Hyperuricemia. 22. Deconditioning. 1. Acute renal failure. 2. Systemic inflammatory response syndrome versus possible sepsis secondary to Escherichia coli urinary tract infection. 3. Colovesicular and colovaginal fistula. 4. Acute renal failure. 5. Poor compliance. 6. Severe gait deconditioning and severe gait dysfunction and bedridden status. 7. Functional quadriplegia. 8. Transient asymptomatic hypoxemia. 9. Leukocytosis with granulocytosis. 10. Normocytic iron deficiency anemia. 11. Transient hypernatremia. 12. Acute renal failure. 13. Hyperuricemia. 14. Transaminitis. 15. . 16. Hyperuricemia. 17. Iron deficiency normocytic anemia. 18. Escherichia coli urinary tract infection with proteinuria, hematuria, bacteriuria and pyuria. 19. Sepsis secondary to Escherichia coli urinary tract infection. 20. Mild aortic stenosis. 21. Moderate aortic regurgitation, moderate mitral regurgitation and mild tricuspid regurgitation. 22. History of anxiety disorder, history of dementia, history of hypovitaminosis D and hyperuricemia. 1. Acute renal failure. 2. Questionable sepsis with leukocytosis, granulocytosis. 3. Normocytic anemia. 4. Hypertension. 5. History of dementia. 6. Leukocytosis with granulocytosis. 7. Normocytic anemia. 8. Transient hypernatremia. 9. Acute kidney injury and acute renal failure (resolving). 10. Severe gait dysfunction, deconditioning and possible functional quadriplegia. 11. Hyperuricemia. 12. Transaminitis. 13. Hyperprocalcitoninemia. 14. Hypovitaminosis D. 15. Acute renal failure and acute kidney injury. 16. Escherichia coli urinary tract infection with hematuria, pyuria, bacteriuria. 17. Systemic inflammatory response syndrome with possible sepsis secondary to Escherichia coli urinary tract infection with ____vaginal and ____ fistula. 18. Prerenal azotemia. 19. Chronic kidney disease, stage, IIIB, nonproteinuric. 20. Severe deconditioning and gait dysfunction. 21. Chronic ____, ____ fistula with Escherichia coli urinary tract infection. 22. Moderate aortic and moderate mitral regurgitation. 23. Mild mitral valve prolapse, calcified aortic valve with mild aortic stenosis and moderate aortic regurgitation and moderate mitral regurgitation and mild tricuspid regurgitation with left ventricular ejection fraction of 55%. 24. Gait dysfunction. 25. Deconditioning 26. Anxiety disorder. 27. Dementia. 28. Hypovitaminosis D. 29. Hyperuricemia. 1. Acute renal failure. 2. Questionable sepsis with leukocytosis and granulocytosis. 3. Normocytic anemia. 4. Questionable hemorrhagic cystitis. 5. Questionable hemorrhagic cystitis with intrinsic mural and perivesicular abnormalities and dependent echogenic material debris in the bladder. 6. Left bundle-branch block and left axis deviation. 7. Left lower lung pleural thickening. 8. Cardiomegaly. 9. Sigmoid diverticulosis. 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 11. 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 12. Status post hysterectomy. 13. Sigmoid diverticulosis. 14. Leukocytosis with granulocytosis. 15. Normocytic anemia. 16. Hyponatremia. 17. Slow-resolving acute renal failure. 18. Hyperuricemia. 19. History of dementia. 20. Deconditioning. 21. Gait dysfunction. 22. Recurrent fall. 23. Questionable functional quadriplegia. 24. Hypovitaminosis D. 25. History of dyslipidemia. 26. History of angina, history of hypertension, history of dementia. 1. Altered mental status, etiology undetermined. 2. Acute renal failure and acute kidney injury and prerenal kidney injury. 3. Questionable and possible urinary tract infection. 4. Recurrent fall and gait dysfunction. 5. History of dementia. 6. Questionable swallowing and feeding dysfunction. 7. Leukocytosis with granulocytosis. 8. Normocytic anemia. 9. Hyperuricemia. 10. Hyperphosphatemia. 11. Transaminitis. 12. Elevated BNP with history of congestive heart failure. 13. Hematuria, pyuria, bacteriuria. 14. Left bundle branch block and left axis deviation. 15. Generalized osteopenia and thoracolumbar spondylosis with old healed left rib fracture. 16. Status post mastectomy for left breast carcinoma. 17. Gait dysfunction. 18. Recurrent falls. 19. 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 20. Questionable cystitis with thickened urinary bladder wall. 21. Questionable echogenic urinary bladder mass. 22. History of dementia. 23. History of hypovitaminosis D, history of anxiety, history of dementia, history of congestive heart failure, history of angina, history of dementia. 24. History of colovesicular and colovaginal fistula. PLAN: At this time, after reviewing general surgery recommendations and information provided by the family regarding urological intervention, the patient has to be discharged and transferred to med/surgery floor via the ER. Orders are already put in. The patient's family has been advised about reconsidering the recommendations by surgery and urology for a cystostomy and colostomy, but the patient's and the son do not wish to proceed with colostomy at present. DISCHARGE MEDICATIONS: 1. Ativan 0.5 mg twice a day. 2. Coreg increased to 6.25 mg twice a day. 3. Ecotrin 81 mg daily. 4. Exelon capsule 4.5 mg twice a day. 5. Flagyl 500 mg 3 times a day. 6. Selenium 200 mcg daily. 7. Imdur 30 mg daily. 8. Klonopin 4 mg at bedtime. 9. Cefepime 1 gram IV q. 12. 10. Protonix 40 mg daily. 11. Requip 8 mg daily. 12. The patient is started on IV fluids 0.9 normal saline at 100 mL an hour. 12. The patient is started on cefepime 1 gram IV q. 12 hours. 13. Tylenol p.r.n. 14. Vitamin D3 2000 units daily. 15. The patient is on oxygen therapy, out of bed. SCDs, ADRIANO stockings. The patient's overall prognosis is guarded to poor, which has been explained to the patient's son and the on multiple occasions during multiple discussions during this hospitalization and acute care hospitalization. Time spent in the entire discharge process more than 45 minutes. DICTATED AND ELECTRONICALLY SIGNED NOT READ. Rigo Vargas MD cc: [id number] TT: 11/12/2016 14:39:23 satya GUEVARA
--- NOTE | 2016-11-12 16:00 | CP.PCM.PN ---
Subjective - Date & Time of Evaluation Date of Evaluation: 11/12/16 Time of Evaluation: 10:15 - Subjective Subjective: Comfortable in bed, afebrile, not in distress. Patient is having stool coming out of her urine. Objective - Vital Signs/Intake and Output Vital Signs (last 24 hours): Temp Pulse Resp BP Pulse Ox 98.5 F 131 H 22 144/76 97 11/12/16 10:00 11/12/16 10:00 11/12/16 10:00 11/12/16 10:00 11/12/16 10:00 Intake and Output: 11/12/16 11/12/16 06:59 18:59 Intake Total 360 Balance 360 - Labs Labs: 11/12/16 09:18 11/12/16 09:18 - Constitutional Appears: Non-toxic, No Acute Distress - Head Exam Head Exam: NORMAL INSPECTION - Respiratory Exam Respiratory Exam: Decreased Breath Sounds - Cardiovascular Exam Cardiovascular Exam: +S1, +S2 - GI/Abdominal Exam GI & Abdominal Exam: Soft. absent: Tenderness Assessment and Plan - Assessment and Plan (Free Text) Plan: Assessment S/P sepsis secondary to urinary tract infection in a patient with rectovesical fistula, S/P treatment for E.coli - patient still affected by the rectovesical fistula and stool continues to fill the urinary bladder and come out of the urine chronic renal failure chronic CHF Parkinson's disease history of breast cancer history of rectovesical and rectovaginal fistula Plan because of the rectovesical fistula, will continue Flagyl Overall prognosis is poor; discussed with Surgery Dr. Alfredo and he gave options to the family
== END 2016-11-12 14:47 | disposition short-term general hospital (02) | DRG 91 ==
LOC: TRCU 18:42
PROVIDERS: ADMIT Internal Medicine; ATTEND Internal Medicine
PROC: F07Z9FZ Gait Training/Functional Ambulation Treatment using Assistive, Adaptive, Supportive or Protective Equipment (ICD-10-PCS; principal; 2016-11-05)
PROC: F07L6FZ Therapeutic Exercise Treatment of Musculoskeletal System - Lower Back / Lower Extremity using Assistive, Adaptive, Supportive or Protective Equipment (ICD-10-PCS; 2016-11-05)
PROC: F07Z8FZ Transfer Training Treatment using Assistive, Adaptive, Supportive or Protective Equipment (ICD-10-PCS; 2016-11-05)
PROC: F08Z0FZ Bathing/Showering Techniques Treatment using Assistive, Adaptive, Supportive or Protective Equipment (ICD-10-PCS; 2016-11-07)
PROC: F08Z1FZ Dressing Techniques Treatment using Assistive, Adaptive, Supportive or Protective Equipment (ICD-10-PCS; 2016-11-07)
PROC: 0T2BX0Z Change Drainage Device in Bladder, External Approach (ICD-10-PCS; 2016-11-11)
DX: R26.89 Other abnormalities of gait and mobility (principal); R53.2 Functional quadriplegia; A41.51 Sepsis due to Escherichia coli [E. coli]; E87.0 Hyperosmolality and hypernatremia; I13.0 Hypertensive heart and chronic kidney disease with heart failure and stage 1 through stage 4 chronic kidney disease, or unspecified chronic kidney disease; I50.22 Chronic systolic (congestive) heart failure; N32.1 Vesicointestinal fistula; N39.0 Urinary tract infection, site not specified; N82.3 Fistula of vagina to large intestine; N18.3 Chronic kidney disease, stage 3 (moderate); G20 Parkinson's disease; R13.12 Dysphagia, oropharyngeal phase; D50.9 Iron deficiency anemia, unspecified; I44.7 Left bundle-branch block, unspecified; I08.3 Combined rheumatic disorders of mitral, aortic and tricuspid valves; M40.204 Unspecified kyphosis, thoracic region; F41.9 Anxiety disorder, unspecified; F02.80 Dementia in other diseases classified elsewhere, unspecified severity, without behavioral disturbance, psychotic disturbance, mood disturbance, and anxiety; E83.51 Hypocalcemia; E55.9 Vitamin D deficiency, unspecified; F32.9 Major depressive disorder, single episode, unspecified; I87.8 Other specified disorders of veins; K59.00 Constipation, unspecified; R33.9 Retention of urine, unspecified; N32.89 Other specified disorders of bladder; K52.9 Noninfective gastroenteritis and colitis, unspecified; M47.896 Other spondylosis, lumbar region; M47.894 Other spondylosis, thoracic region; Z85.3 Personal history of malignant neoplasm of breast; Z90.10 Acquired absence of unspecified breast and nipple

== ENCOUNTER 2016-11-12 13:41 | Inpatient (IN) | payer MEDICARE ==
[2016-11-12 13:54] VITALS: BMI 22.2
--- NOTE | 2016-11-12 16:30 | ED PDOC ---
Arrival/HPI - General Chief Complaint: Female Genitourinary Time Seen by Provider: 11/12/16 13:51 Historian: Family - History of Present Illness Narrative History of Present Illness (Text): 11/12/16 16:24 81 y.o. female who is sent from TCU for admission to med/surg. The patient has a history of CHF, Parkinson's, Breast CA in remission, rectovaginal fistula and rectourethral fistula. Patient did have urinary catheter placed initially but per son, upon flushing, she went into urinary retention. The patient herself denies any pain or n/v. A low grade temp was noted. Per Dr. Vargas, the patient will need to be transferred back to med/surg for treatment of the fistula, including cystostomy. Past Medical History - Infectious Disease Hx of Infectious Diseases: None - Cardiac Hx Cardiac Disorders: Yes Hx Congestive Heart Failure: Yes Hx Hypertension: Yes - Pulmonary Hx Respiratory Disorders: No Hx Chronic Obstructive Pulmonary Disease (COPD): No - Neurological HX Cerebrovascular Accident: No - HEENT Hx HEENT Disorder: No - Renal Hx Renal Disorder: No Hx Renal Failure: No - Endocrine/Metabolic Hx Diabetes Mellitus Type 1: No Hx Diabetes Mellitus Type 2: No Hx Hypothyroidism: No - Hematological/Oncological Hx Blood Disorders: Yes Hx Cancer: Yes (breast) - Integumentary Hx Dermatological Disorder: No - Musculoskeletal/Rheumatological Hx Arthritis: No Hx Rheumatoid Arthritis: No - Gastrointestinal Hx Gastrointestinal Disorders: No Hx Gastroesophageal Reflux: No - Genitourinary/Gynecological Hx Genitourinary Disorders: Yes Hx Reproductive Disorders: Yes (hyst/ left breast mastectomy 1993) - Psychiatric Hx Psychophysiologic Disorder: No Hx Substance Use: No - Surgical History Hx Hysterectomy: Yes Hx Mastectomy: Yes Other/Comment: breat cancer in the past. - Anesthesia Hx Anesthesia: Yes Hx Anesthesia Reactions: No Family/Social History Family/Social History: Unknown Family HX Smoking Status: Never Smoked Hx Alcohol Use: No Hx Substance Use: No Allergies/Home Meds Allergies/Adverse Reactions: Allergies No Known Allergies Allergy (Verified 11/12/16 13:54) Home Medications: Home Meds Medication Instructions Recorded Confirmed Carvedilol [Coreg] 6.25 mg PO BID 10/29/16 11/12/16 Clonazepam 4 mg PO HS 10/29/16 11/12/16 LORazepam [Ativan] 0.5 mg PO BID 10/29/16 11/12/16 Cefepime 1gm in NS 100ml [Maxipime 1 gm IV BID 11/12/16 11/12/16 1gm] metroNIDAZOLE [Flagyl] 500 mg PO TID 11/12/16 11/12/16 Review of Systems - Review of Systems Constitutional: Fevers (low grade fever) Gastrointestinal: absent: Nausea, Vomiting Genitourinary Female: Other (urinary retention) Physical Exam Vital Signs Temp Pulse Resp BP Pulse Ox 11/12/16 15:29 107 H 108/72 95 11/12/16 14:00 100.5 F H 100 H 26 H 115/64 95 Temperature: Other (low grade) Blood Pressure: Normal Pulse: Tachycardic Respiratory Rate: Normal Appearance: Positive for: Non-Toxic Pain Distress: None Mental Status: Positive for: other (Awake and alert) - Systems Exam Head: Present: Atraumatic, Normocephalic Respiratory/Chest: Present: Clear to Auscultation, Good Air Exchange. No: Respiratory Distress, Accessory Muscle Use Cardiovascular: Present: Regular Rate and Rhythm, Normal S1, S2. No: Murmurs Abdomen: Present: Distention Medical Decision Making ED Course and Treatment: 11/12/16 16:35 Patient with noted history is sent to the ED for readmission for fistula treatment and retention treatment. Orders placed by Dr. Vargas. Disposition/Present on Arrival - Present on Arrival Any Indicators Present on Arrival: No History of DVT/PE: No History of Uncontrolled Diabetes: No Urinary Catheter: No History of Decub. Ulcer: No History Surgical Site Infection Following: None - Disposition Have Diagnosis and Disposition been Completed?: Yes Diagnosis: Rectovaginal fistula, Rectoureteral fistula Disposition: HOSPITALIZED Disposition Time: 13:55 Patient Plan: Admission Condition: FAIR
[2016-11-12] MEDS: Sodium Chloride 0.9% 1,000 ML IV SCH (18:00)
--- NOTE | 2016-11-12 21:09 | CP.PCM.PCO ---
Physician Communication Note - Physician Communication Note Physician Communication Note: +Colovesical fistula/Sepsis/Family resisting colostomy
[2016-11-12] MEDS ORDERED: Cefepime 1gm in NS 100ml 100 ML IVPB SCH (22:00)
[2016-11-12] MEDS ORDERED: Pneumococcal 23-Valent Vaccine IM ONE (23:04)
--- NOTE | 2016-11-13 00:43 | CP.PCM.CON ---
History of Present Illness - History of Present Illness History of Present Illness: General Surgery Consult note for Dr. Alfredo Consult reason: colo-vesicle fistula Pt is an 81F with PMH of Past Patient History - Infectious Disease Hx of Infectious Diseases: None - Past Medical History & Family History Past Medical History?: Yes - Past Social History Smoking Status: Never Smoked - CARDIAC Hx Cardiac Disorders: Yes Hx Congestive Heart Failure: Yes Hx Hypertension: Yes - PULMONARY Hx Respiratory Disorders: No Hx Chronic Obstructive Pulmonary Disease (COPD): No - NEUROLOGICAL Hx Neurological Disorder: Yes HX Cerebrovascular Accident: No Hx Parkinson's Disease: Yes - HEENT Hx HEENT Problems: No - RENAL Hx Chronic Kidney Disease: Yes (URINARY RETENTION) Hx Renal Failure: No - ENDOCRINE/METABOLIC Hx Endocrine Disorders: No Hx Diabetes Mellitus Type 1: No Hx Diabetes Mellitus Type 2: No Hx Hypothyroidism: No - HEMATOLOGICAL/ONCOLOGICAL Hx Blood Disorders: Yes Hx Cancer: Yes (breast-LEFT MASTECTOMY.COMPLETED CHEMO AND RADIATION -IN REMISSION) Hx Chemotherapy: Yes - INTEGUMENTARY Hx Dermatological Problems: Yes Other/Comment: MULTIPLE PUSTULES AND BROWN PLAQUES TO FACE AND BACK. - MUSCULOSKELETAL/RHEUMATOLOGICAL Hx Arthritis: No Hx Falls: Yes - GASTROINTESTINAL Hx Gastrointestinal Disorders: Yes (COLOVESICAL FISTULA) Hx Gastroesophageal Reflux: No - GENITOURINARY/GYNECOLOGICAL Hx Genitourinary Disorders: Yes (BREAST CA -LEFT MASTECTOMY.) Other/Comment: VESICOVAGINAL FISTULA,RECTOVAGINAL FISTULA,HYSTERECTOMY - PSYCHIATRIC Hx Psychophysiologic Disorder: Yes Hx Anxiety: Yes Hx Substance Use: No - SURGICAL HISTORY Hx Surgeries: Yes Hx Hysterectomy: Yes Hx Mastectomy: Yes Other/Comment: breat cancer in the past.LEFT MASTECTOMY - ANESTHESIA Hx Anesthesia: Yes Hx Anesthesia Reactions: No Meds Allergies/Adverse Reactions: Allergies Allergy/AdvReac Type Severity Reaction Status Date / Time No Known Allergies Allergy Verified 11/12/16 21:15 - Medications Medications: Current Medications Carvedilol (Coreg) 6.25 mg PO 0800,1800 [facility] Cholecalciferol (Vitamin D) 2,000 iu PO DAILY [facility] Clonazepam (Klonopin) 4 mg PO HS [facility] PRN Reason: Protocol Last Admin: 11/12/16 22:20 Dose: Not Given Heparin Sodium (Porcine) (Heparin) 5,000 units SC Q8 [facility] PRN Reason: Protocol Last Admin: 11/12/16 21:56 Dose: 5,000 units Home Med (Home Med) 1 unit PO DAILY [facility] Sodium Chloride (Sodium Chloride 0.9%) 1,000 mls @ 80 mls/hr IV .[id number] [facility] Last Admin: 11/12/16 18:00 Dose: 80 mls/hr Cefepime HCl 0.5 gm/ Sodium (Chloride) 50 mls @ 100 mls/hr IVPB Q12 [facility] Last Admin: 11/12/16 22:07 Dose: 100 mls/hr Isosorbide Mononitrate (Imdur) 30 mg PO 0600 [facility] Lorazepam (Ativan) 0.5 mg PO BID [facility] PRN Reason: Protocol Last Admin: 11/12/16 17:58 Dose: 0.5 mg Metronidazole (Flagyl) 500 mg PO Q8 [facility] PRN Reason: Protocol Last Admin: 11/12/16 21:55 Dose: 500 mg Pantoprazole Sodium (Protonix Ec Tab) 40 mg PO 0630 [facility] Rivastigmine (Exelon Cap) 4.5 mg PO 0800,1800 [facility] Last Admin: 11/12/16 17:59 Dose: 4.5 mg Ropinirole HCl (Requip) 8 mg PO 0800 [facility] Results - Vital Signs Recent Vital Signs: Last Vital Signs Temp 99 F 11/12/16 22:38 Pulse 107 H 11/12/16 22:38 Resp 18 11/12/16 22:38 BP 141/91 H 11/12/16 22:38 Pulse Ox 95 11/12/16 16:00
--- NOTE | 2016-11-13 04:56 | PCM.URO ---
Urology Progress Note - Objective Intake & Output: Intake & Output 11/12/16 11/12/16 11/13/16 06:59 18:59 06:59 Intake Total 940 Output Total 100 Balance 840 Weight 110 lb Intake: IV 640 Left Forearm 640 Oral 300 Output: Urine/Stool Mix 100 Other: Voiding Method 3-way Ramirez with CBI # Voids Urine, Voided 0 Vital Signs: Vital Signs - 24 hr 11/12/16 11/12/16 11/12/16 14:00 15:29 16:00 Temperature 100.5 F H 99 F Pulse Rate 100 H 107 H 107 H Respiratory 26 H 20 Rate Blood Pressure 115/64 108/72 141/91 H O2 Sat by Pulse 95 95 95 Oximetry 11/12/16 11/12/16 22:00 22:38 Temperature 99 F Pulse Rate 80 107 H Respiratory 18 Rate Blood Pressure 141/91 H O2 Sat by Pulse Oximetry
[2016-11-13] MEDS: Pantoprazole 40 mg EC Tab PO SCH (05:33)
[2016-11-13] MEDS: Sodium Chloride 0.9% 1,000 ML IV SCH ×2 (05:35→17:40)
[2016-11-13 07:49] LABS: ADD MANUAL DIFF? NO
[2016-11-13 07:56] LABS: BASO # 0.02 K/mm3 (0.0-2.0); BASO % 0.2 % (0.0-3.0); EOS # 0.2 (0.0-0.7); EOS % 1.6 % (1.5-5.0); GRAN # 6.36 (1.4-6.5); GRAN % 56.2 % (50.0-68.0); HEMATOCRIT 34.2 % (36.0-48.0); LYMPH # 3.6 (1.2-3.4); LYMPH % 31.9 % (22.0-35.0); MEAN CELL VOLUME 95.8 fL (80.0-105.0); MEAN CORPUSCULAR HEMOGLOBIN 30.5 pg (25.0-35.0); MEAN CORPUSCULAR HGB CONC 31.9 g/dl (31.0-37.0); MEAN PLATELET VOLUME 9.5 fl (7.0-11.0); MONO # 1.1 (0.1-0.6); MONO % 10.1 % (1.0-6.0); PLATELET COUNT 422 10^3/uL (120.0-450.0); RED CELL DISTRIBUTION WIDTH 18.5 % (11.5-14.5); WHITE BLOOD COUNT 11.3 10^3/ul (4.5-11.0)
[2016-11-13] MEDS: Piperacillin/Tazobact 3.375 gm 100 ML IVPB SCH ×4 (08:20→23:06)
--- NOTE | 2016-11-13 08:21 | PN ---
DATE: 11/12/2016 An 81-year-old female with history of hypertension, congestive heart failure, CKD and known rectovesi kiley/rectovaginal fistulas, recently discharged after admission with UTI sepsis, today readmitted sayda abraham residing in TCU for acute renal failure, SIRS/sepsis and urinary retention. The patient today repo rted feeling well. Denied any abdominal pain. Reportedly was tolerating diet. Not draining any uri ne, only stool seen in Ramirez bag. PHYSICAL EXAMINATION: VITAL SIGNS: This afternoon, blood pressure 115/64, heart rate 100, respirations 26, temperature 100 .5, O2 saturation 95% on room air. Exam earlier in the day: GENERAL: No distress. The patient conversing coherently in full sentences. HEENT: Moist mucous membranes. Nonicteric. CHEST: Clear to auscultation, although decreased breath sounds at left base. HEART: S1, S2 positive. Irregular rate. ABDOMEN: Soft, nontender, distended. EXTREMITIES: Right lower leg with mild edema. LABORATORY DATA: This morning, WBC 14.3, hemoglobin 12.0, hematocrit 37.3, platelets 499. Sodium 14 5, potassium 3.7, chloride 112, bicarbonate 22, BUN 37, creatinine 1.5, glucose 136, albumin 3.4. ASSESSMENT: 1. Systemic inflammatory response syndrome/sepsis. The patient with leukocytosis and low grade feve r in the setting of rectovesical fistula, urinary retention with overt stool seen in Ramirez bag and CA T scan yesterday that showed distended bladder, likely filled with stool. The patient started on cef epime 1 gram q. 12 hours for likely sepsis secondary to urinary tract infection in the setting of oneida al failure. Will likely need to be changed to 1 gram q. 24 hours. We will reassess with next set of labs. Agree with holding diuretics and starting IV fluids in the setting of sepsis. Hold tonight's d ose of Coreg as blood pressure is dropping, although patient still normotensive. 2. Acute renal failure, acute kidney disease on chronic kidney disease, now secondary to bladder obs truction due to overt stool from rectovesical fistula. No overt hydronephrosis seen on CAT scan yest erday; however, no urine seen in Ramirez bag. Case discussed with consulting urologist today who feels that a cystostomy tube will be even more predisposed to getting obstructed with stool as this is a s maller syringe tube than the larger syringe Ramirez catheter that patient has currently. Urologist koby wheeler discuss the case with IR for nephrostomy tube placement as a temporizing measure in order to preser ve renal function. 3. Rectovesical fistula. The patient with blader distention over the last few days and now with ove rt formed stool in Ramirez bag and likely with stool that is causing bladder distention. Surgical opti ons were previously given to patient and her family, in particular diverting colostomy. The situation was discussed again with the patient and her family today and I explained to them that due to stool seeping into the bladder, patient is at continuous risk for sepsis. Furthermore, renal function is e xpected to worsen unless obstructive is relieved. The patient and her family to discuss options with primary attending urologist and surgeon. 4. Congestive heart failure. The patient with bilateral pleural effusions on CT. Has history of sy stolic dysfunction, although recent echo showed preserved ejection fraction. The patient currently o n low dose Coreg for cardiac optimization and was on torsemide 10 mg daily in the setting of sepsis. Agree with holding diuretics and should hold Coreg until blood pressure is improved. 5. Hypertension. Blood pressure readings lower than usual today in the setting of systemic inflamma tory response syndrome/sepsis. RECOMMENDATIONS: As above. Wally Ash MD cc: [id number] TT: 11/12/2016 19:12:43 Confirmation # [id number] Dictation # [id number] angela
[2016-11-13 08:26] LABS: ALB/GLOB RATIO 0.7 (1.1-1.8); BILIRUBIN,TOTAL 0.5 mg/dL (0.2-1.3); CALCIUM 7.8 mg/dL (8.4-10.5); MAGNESIUM 1.8 mg/dL (1.7-2.2); PHOSPHOROUS 4.1 mg/dL (2.5-4.5); POTASSIUM 3.5 mmol/L (3.6-5.0); TOTAL PROTEIN 6.6 g/dL (5.8-8.3)
--- NOTE | 2016-11-13 09:09 | CP.PCM.PCO ---
Physician Communication Note - Physician Communication Note Physician Communication Note: Need Colostomy!-?suprapubic cystotomy/?Thursday if family consents
[2016-11-13] MEDS ORDERED: SELENIUM 200 MCG PO SCH (10:00)
[2016-11-13] MEDS: Potassium Chloride 20 mEq 100 ML IVPB SCH ×2 (11:04→14:13)
[2016-11-13] MEDS ORDERED: Heparin25000 units/250ml 1/2NS 250 ML IV PRN (11:18)
[2016-11-13 12:53] LABS: TROPONIN I 0.04 ng/mL
--- NOTE | 2016-11-13 14:58 | HP ---
The patient is an 81-year-old female transferred from transitional care unit to the med/surg via the ER for urinary retention. For rest of the details about history and events, please refer to the discharge summary from 11/12/2016 and the progress notes and H and P from the admissions of 10/29/2016 to 11/03/2016, and 11/03/2016 to 11/12/2016. The patient is now seen in room 363, bed 1 with patient's and son at bedside. The patient is lying in the bed, comfortable. Does not appear to be in any distress. Overnight nurse's notes were reviewed. Copied To: Attending MD: Rigo Vargas MD The patient is seen with patient's son and the at bedside. The patient is lying in the bed. The patient is comfortable. Overnight nurse's notes were reviewed. The patient is having continuous pull of the Ramirez last night. The patient had a large amount of light brown fecal material coming out of the vagina. The patient is having bowel material via her Ramirez. The patient this morning was seen by Dr. Acosta. PHYSICAL EXAMINATION: VITAL SIGNS: T-max 98.5, heart rate 91, 107, 131, blood pressure 144/76, 153/85 , 156/96, respirations 22, O2 sat 97. GENERAL: The patient is lying in the bed. HEENT: Normocephalic, atraumatic. Eyes, shows pinkish, pale conjunctivae. Dry oral mucosa. NECK: No neck rigidity. CHEST: Kyphosis. LUNGS: Shows no rales, crackles, or wheezing. CARDIOVASCULAR: S1, S2, regular rhythm, positive systolic murmur right second intercostal space, left sternal border, left second intercostal space. ABDOMEN: Distended, protuberant, suprapubic tenderness. GENITALIA: Female. EXTREMITIES: Shows positive SCDs. Trace swelling of the ankle. There is no pitting edema of the legs. MUSCULOSKELETAL: Shows a body mass index of 28. NEUROLOGIC: Cranial nerves II-XII limited. GAIT: Not tested. The patient is seen lying in the bed. The patient does not appear to be in any distress. DIAGNOSTICS: On 11/12, WBC 14.3, hemoglobin and hematocrit 12 and 37.3, platelets 499, granulocytes 81% segs. Sodium 145, potassium 3.7, chloride 112, CO2 of 22, anion gap 15, BUN 37, creatinine 1.5. GFR 40, glucose 136, calcium 8.7, phosphorus 4.0, magnesium 1.7. The patient seen by urology and the patient's urology progress note was reviewed. There are no recommendations noted on the urology progress note. The patient was seen by general surgery, Dr. Alfredo. The recommendations by general surgery are patient needs cystostomy and colostomy, which has been extensively discussed and explained to the patient and the patient's and the son by all the physicians involved, but patient's son and wish to proceed first with cystostomy and not with colostomy at this time. IMPRESSION, PLAN, AND DIAGNOSES: 1. Recurrent urinary retention with urinary bladder distention. 2. Severe deconditioning and gait dysfunction. 3. Functional quadriplegia with severe deconditioning and gait dysfunction and bedridden status. 4. Small bilateral pleural effusion and bibasilar atelectasis. 5. Questionable sigmoid colitis with mural thickening. 6. Urinary retention with distended urinary bladder with air fluid level. 7. Hypertension. 8. Tachycardia. 9. Leukocytosis with granulocytosis. 10. Questionable systemic inflammatory response syndrome. 11. Normocytic anemia. 12. Acute recurrent kidney injury. 13. 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 14. Normocytic iron deficiency anemia. 15. Chronic kidney disease stage II/III. 1. Severe deconditioning, severe gait dysfunction and possible questionable functional quadriplegia. 2. Urinary retention. 3. Colovesicular and colovaginal fistula. 4. Abdominal distention, probably secondary to urinary retention. 5. Sepsis secondary to Escherichia coli urinary tract infection and colovesicular and colovaginal fistula. 6. Hypertension. 7. Questionable ileus with constipation, fecal retention, fecal stasis. 8. Asymptomatic hypoxemia. 9. Status post acute renal failure. 10. Normocytic iron deficiency anemia. 11. Status post IV Venofer infusion. 12. Leukocytosis with granulocytosis. 13. Status post acute renal failure. 14. Hypocalcemia. 15. Mild hypoalbuminemia. 16. History of anxiety disorder, history of dementia, history of depression, history of Parkinson's disease, hypovitaminosis D. 1. Severe deconditioning and gait dysfunction. 2. Deconditioning. 3. Questionable constipation and fecal retention. 4. Asymptomatic hypoxemia. 5. Leukocytosis with granulocytosis. 6. Normocytic anemia. 7. Prerenal kidney injury. 8. Status post acute renal failure. 9. 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 10. Deconditioning. 11. Gait dysfunction. 12. Sepsis secondary to Escherichia coli urinary tract infection. 13. History of colovesicular colovaginal fistula. 14. Dementia. 15. History of Parkinson disease. 16. History of anxiety disorder. 17. History of constipation. 1. Severe deconditioning and gait dysfunction. 2. Possible functional quadriplegia. 3. Nonproteinuric chronic kidney disease stage III. 4. Acute renal failure, secondary to prerenal kidney injury (resolved). 5. Mild venous stasis of the lower extremities. 6. Sepsis with Escherichia coli urinary tract infection. 7. Rectovesical and rectovaginal fistula. 8. Deconditioning. 9. Gait dysfunction. 10. Normocytic anemia. 11. Normocytic iron deficiency anemia. 12. Leukocytosis with granulocytosis. 13. Hypocalcemia. 14. Hypokalemia. 1. Severe gait dysfunction and deconditioning and possible functional quadriplegia. 2. Sepsis secondary to Escherichia coli urinary tract infection with history of rectovaginal, rectovesical fistula. 3. Escherichia coli urinary tract infection. 4. Acute renal failure. 5. Hypoxemia. 6. Normocytic anemia. 7. Leukocytosis with granulocytosis. 8. Status post acute renal failure. 9. Hypocalcemia. 10. Mild hypoalbuminemia. 11. History of dementia, Parkinson's disease, anxiety, and possible depression. 12. Prerenal kidney injury. 13. Non-proteinuric chronic kidney disease stage III. 14. History of anxiety. 15. History of dementia, history of depression, history of hypovitaminosis D. 1. Severe deconditioning and gait dysfunction and possible bedridden status and possible functional quadriplegia. 2. Sepsis secondary to a Escherichia coli urinary tract infection with history of vaginal and rectovesical fistula. 3. Deconditioning. 4. Escherichia coli urinary tract infection. 5. Acute renal failure. 6. History of hypertension. 7. Asymptomatic hypoxemia. 8. Kyphosis of the thoracic spine. 9. Hypoalbuminemia. 10. Hypocalcemia. 11. Normocytic anemia. 12. Hypokalemia. 13. Oropharyngeal dysphagia with impulsive and unsafe eating behaviors. 14. History of anxiety disorder. 15. History of dementia. 16. History of Parkinson disease. 17. History of normocytic iron deficiency anemia. 1. Severe gait dysfunction, deconditioning and bedridden status. 2. Questionable and possible functional quadriplegia. 3. Escherichia coli urinary tract infection. 4. Acute renal failure. 5. Systemic inflammatory response syndrome versus possible sepsis secondary to Escherichia coli urinary tract infection. 6. Colovesical and colovaginal fistula. 7. History of hypertension. 8. Asymptomatic hypoxemia. 9. Normocytic iron deficiency anemia. 10. Normal potassium. 11 Acute renal failure with mild prerenal kidney injury. 12. Non-proteinuric chronic kidney disease stage III/IV. 13. Hypocalcemia. 14. Hypoalbuminemia. 15. Malnutrition. 16. History of anxiety disorder. 17. History of dementia. 18. Iron deficiency normocytic anemia. 19. History of anxiety disorder. 20. Hypovitaminosis D. 21. Hyperuricemia. 22. Deconditioning. 1. Acute renal failure. 2. Systemic inflammatory response syndrome versus possible sepsis secondary to Escherichia coli urinary tract infection. 3. Colovesicular and colovaginal fistula. 4. Acute renal failure. 5. Poor compliance. 6. Severe gait deconditioning and severe gait dysfunction and bedridden status. 7. Functional quadriplegia. 8. Transient asymptomatic hypoxemia. 9. Leukocytosis with granulocytosis. 10. Normocytic iron deficiency anemia. 11. Transient hypernatremia. 12. Acute renal failure. 13. Hyperuricemia. 14. Transaminitis. 15. . 16. Hyperuricemia. 17. Iron deficiency normocytic anemia. 18. Escherichia coli urinary tract infection with proteinuria, hematuria, bacteriuria and pyuria. 19. Sepsis secondary to Escherichia coli urinary tract infection. 20. Mild aortic stenosis. 21. Moderate aortic regurgitation, moderate mitral regurgitation and mild tricuspid regurgitation. 22. History of anxiety disorder, history of dementia, history of hypovitaminosis D and hyperuricemia. 1. Acute renal failure. 2. Questionable sepsis with leukocytosis, granulocytosis. 3. Normocytic anemia. 4. Hypertension. 5. History of dementia. 6. Leukocytosis with granulocytosis. 7. Normocytic anemia. 8. Transient hypernatremia. 9. Acute kidney injury and acute renal failure (resolving). 10. Severe gait dysfunction, deconditioning and possible functional quadriplegia. 11. Hyperuricemia. 12. Transaminitis. 13. Hyperprocalcitoninemia. 14. Hypovitaminosis D. 15. Acute renal failure and acute kidney injury. 16. Escherichia coli urinary tract infection with hematuria, pyuria, bacteriuria. 17. Systemic inflammatory response syndrome with possible sepsis secondary to Escherichia coli urinary tract infection with ____vaginal and ____ fistula. 18. Prerenal azotemia. 19. Chronic kidney disease, stage, IIIB, nonproteinuric. 20. Severe deconditioning and gait dysfunction. 21. Chronic ____, ____ fistula with Escherichia coli urinary tract infection. 22. Moderate aortic and moderate mitral regurgitation. 23. Mild mitral valve prolapse, calcified aortic valve with mild aortic stenosis and moderate aortic regurgitation and moderate mitral regurgitation and mild tricuspid regurgitation with left ventricular ejection fraction of 55%. 24. Gait dysfunction. 25. Deconditioning 26. Anxiety disorder. 27. Dementia. 28. Hypovitaminosis D. 29. Hyperuricemia. 1. Acute renal failure. 2. Questionable sepsis with leukocytosis and granulocytosis. 3. Normocytic anemia. 4. Questionable hemorrhagic cystitis. 5. Questionable hemorrhagic cystitis with intrinsic mural and perivesicular abnormalities and dependent echogenic material debris in the bladder. 6. Left bundle-branch block and left axis deviation. 7. Left lower lung pleural thickening. 8. Cardiomegaly. 9. Sigmoid diverticulosis. 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 11. 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 12. Status post hysterectomy. 13. Sigmoid diverticulosis. 14. Leukocytosis with granulocytosis. 15. Normocytic anemia. 16. Hyponatremia. 17. Slow-resolving acute renal failure. 18. Hyperuricemia. 19. History of dementia. 20. Deconditioning. 21. Gait dysfunction. 22. Recurrent fall. 23. Questionable functional quadriplegia. 24. Hypovitaminosis D. 25. History of dyslipidemia. 26. History of angina, history of hypertension, history of dementia. 1. Altered mental status, etiology undetermined. 2. Acute renal failure and acute kidney injury and prerenal kidney injury. 3. Questionable and possible urinary tract infection. 4. Recurrent fall and gait dysfunction. 5. History of dementia. 6. Questionable swallowing and feeding dysfunction. 7. Leukocytosis with granulocytosis. 8. Normocytic anemia. 9. Hyperuricemia. 10. Hyperphosphatemia. 11. Transaminitis. 12. Elevated BNP with history of congestive heart failure. 13. Hematuria, pyuria, bacteriuria. 14. Left bundle branch block and left axis deviation. 15. Generalized osteopenia and thoracolumbar spondylosis with old healed left rib fracture. 16. Status post mastectomy for left breast carcinoma. 17. Gait dysfunction. 18. Recurrent falls. 19. 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 20. Questionable cystitis with thickened urinary bladder wall. 21. Questionable echogenic urinary bladder mass. 22. History of dementia. 23. History of hypovitaminosis D, history of anxiety, history of dementia, history of congestive heart failure, history of angina, history of dementia. 24. History of colovesicular and colovaginal fistula. PLAN: At this time, after reviewing general surgery recommendations and information provided by the family regarding urological intervention, the patient has to be discharged and transferred to med/surgery floor via the ER. Orders are already put in. The patient's family has been advised about reconsidering the recommendations by surgery and urology for a cystostomy and colostomy, but the patient's and the son do not wish to proceed with colostomy at present. MEDICATIONS: 1. Ativan 0.5 mg twice a day. 2. Coreg increased to 6.25 mg twice a day. 3. Ecotrin 81 mg daily. 4. Exelon capsule 4.5 mg twice a day. 5. Flagyl 500 mg 3 times a day. 6. Selenium 200 mcg daily. 7. Imdur 30 mg daily. 8. Klonopin 4 mg at bedtime. 9. Cefepime 1 gram IV q. 12. 10. Protonix 40 mg daily. 11. Requip 8 mg daily. 12. The patient is started on IV fluids 0.9 normal saline at 100 mL an hour. 12. The patient is started on cefepime 1 gram IV q. 12 hours. 13. Tylenol p.r.n. 14. Vitamin D3 2000 units daily. 15. The patient is on oxygen therapy, out of bed. SCDs, ADRIANO stockings. The patient's overall prognosis is guarded to poor, which has been explained to the patient's son and the on multiple occasions during multiple discussions during this hospitalization and acute care hospitalization. . Rigo Vargas MD cc: [id number] TT: 11/12/2016 14:39:23 dn Dictated By: Rigo Vargas MD Transcribed Date and Time: 11/12/16 1439 Transcribed By: ALVINA Signed By: Date & Time Signed: Co-Signed By: Date & Time Signed: [address] [address] Health Information Management History and Physical Report : [id number] Draft Patient: ABDULKADIR NORRIS Unit: [id number] : 1935 Loc: [facility] Room/Bed: [facility] Age/Sex: 81 / F ADM Status: ADM IN ADM Date: Copied To: Attending MD: [place] [address] Health Information Management History and Physical Report : [id number] Draft Patient: ABDULKADIR NORRIS : 1935 Age/Sex: 81 / F Copied To: Attending MD: Rigo Vargas MD HISTORY OF PRESENT ILLNESS: The patient is an 81-year-old homebound patient of Dr. Rene Finn who was brought to the Emergency Room today with the patient's son and the . The patient was brought to the Emergency Room by [facility] ambulance. According to the patient's son and the , the patient has been having some symptoms of urinary tract infection for which the patient has been put on Levaquin for 2 months as per the patient's family. According to the patient's son, the patient has been weak. The patient has been falling and has been confused. The patient was advised by the PMD to come to the Emergency Room for evaluation. According to the ER physician evaluation note, the patient evaluation of urinary tract infection. The patient, according to the son, has been urinating more frequently and also having frequent bowel movements. The patient was found also reported to be weak and confused, which has been worsening since the last 2 weeks, but more worse in the last 3 days. The patient fell a couple of times and difficulty walking and also the patient hit her head against the wall, but no loss of consciousness. Also, the patient is having a lot of mucus and saliva in the mouth. CODE STATUS: Full code. LIVING WILL AND ADVANCED DIRECTIVE: None. ALLERGIES: None. HEIGHT: 4 feet 10. WEIGHT: 110. BMI: 23. ALLERGIES: None. HOME MEDICATIONS: Os-Anibal, vitamin D daily, selenium 50 mcg daily, Boost daily, calcium carbonate, Tums 500 mg p.r.n., vitamin E 400 units daily, Centrum Silver 1 tablet daily, Ativan 0.5 mg twice a day, Vytorin 10-80 daily, Klonopin 4 mg daily, Ativan 0.5 mg twice a day, Klonopin 2-4 mg daily, Digoxin 0.125 daily, aspirin 81 mg daily, Demadex 20 mg daily, Imdur 30 mg daily, Imdur 30 mg daily, Requip 8 mg daily, Cozaar 50 mg twice a day, Coreg 12.5 mg twice a day, Exelon 4.5 mg twice a day. SOCIAL HISTORY: Negative for smoking, negative for alcohol. Negative for drug use. REVIEW OF SYSTEMS: A 13-system review is positive as dictated above. PAST MEDICAL AND SURGICAL HISTORY: History of syncope, history of left bundle branch block, history of left axis deviation, history of left breast carcinoma, left mastectomy, history of dementia, history of congestive heart failure, history of questionable congestive heart failure, history of hypertension, history of angina, history of anxiety disorder, history of dyslipidemia, history of colovesicular and colovaginal fistula, history of left mastectomy, history of anemia, history of diverticulosis, history of pneumonia, history of dyslipidemia, history of diverticulosis, diverticulitis, history of osteopenia, osteoporosis, history of Parkinson's disease, history of anxiety disorder, history of depression, history of questionable aspiration pneumonia, history of chronic kidney disease stage IV, history of colovesicular vesicular and colovaginal fistula, history of right bundle branch block, history of left anterior hemiblock, history of fecal retention, history of aspiration pneumonia , history of leukocytosis, history of sepsis, history of Enterococcus faecalis urinary tract infection, history of mild hyperkalemia, history of digoxin toxicity, history of Enterococcus faecalis urinary tract infection with pyuria, hematuria, proteinuria, bacteriuria, history of syncope, history of bradyarrhythmias with high grade AV block versus complete heart block and asystole for more than 6 seconds probably secondary to Coreg and digoxin, history of left anterior hemiblock, history of left bundle branch block versus intraventricular conduction delay, history of multiple cardiac pauses, history of asymptomatic asystole, history of left ventricular ejection fraction of 43%, history of moderate mitral regurgitation, history of moderate aortic regurgitation, history of aortic sclerosis, history of non-ST elevation myocardial infarction, history of Parkinson's disease, history of dementia, history of questionable nonsustained ventricular tachycardia, history of hypertriglyceridemia, history of hypertension, 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 The patient's past medical history is significant for normocytic anemia, history of hematuria and pyuria and bacteriuria, history of digoxin toxicity, history of dilated cardiomyopathy with left ventricular ejection fraction of 33%, history of left ventricular ejection fraction of 33%, history of mitral regurgitation, history of questionable dilated cardiomyopathy, history of MUGA scan done in 01/2014 showing ejection fraction of 33%. The patient is seen in the Emergency Room in bed #18 and then ultrasound. The patient's son and her are at bedside. PHYSICAL EXAMINATION: VITAL SIGNS: T-max 97.8. Pulse is 62, 69, 74. Blood pressure is 126/54, 122/ 58, 124/60. Respiration 18-20. O2 sat 98%. HEAD: Normocephalic, atraumatic. HEENT: Shows pinkish, pale conjunctivae, dry oral mucosa. Tongue is midline. NECK: Questionable soft carotid bruit. CHEST: Positive kyphosis of the thoracic spine noted. Positive left mastectomy. CARDIOVASCULAR: Shows S1, S2, regular rhythm with systolic murmur in the right second intercostal space, left second intercostal space, left sternal border. ABDOMEN: Soft, protuberant, healed surgical scar of hysterectomy. GENITALIA: Female. RECTAL: Deferred. EXTREMITIES: Shows no pitting edema, no calf tenderness, no Homans' sign. NEUROLOGIC: The patient is arousable, awake, responsive. The patient is able to communicate. The patient is able to move upper and lower extremity without assistance. Gait examination is deferred. LYMPHATICS: Negative. PSYCHIATRIC: Positive for anxiety, dementia. MUSCULOSKELETAL: Shows a body mass index of 23. DIAGNOSTICS: 1. WBC 13.4, hemoglobin/hematocrit 11.6 and 35.6, platelet 272, granulocytes 70 %. PT, PTT is normal and lactic acid 0.9. Sodium 142, potassium 4.5, chloride 97, CO2 of 33, anion gap 17, BUN 123, creatinine 2.3, GFR 25, glucose 97. Lactic acid 1.0, uric acid 10.1, phosphorus 4.6, magnesium 2.7, AST 50. BNP 1040. Lipase 347. TSH 1.6. T4 of 8.7. Urine: pH 6.5, specific gravity 1.010 , large blood, large leukocyte esterase, WBC 10-15, many large bacteria. 2. Chest x-ray was noted, which shows left rib fractures, osteopenia, thoracolumbar spondylosis, left mastectomy. Chronic lung marking noted. 3. CAT scan of the head was done because of confusion, which shows cerebral cortical atrophy and microvascular ischemic disease of the brain. The patient had a bladder and renal ultrasound done, preliminary bladder and renal ultrasound shows pre-void volume almost 250 mL, post-void empty. No ureteral jets noted. There is questionable echogenic mass seen. 4. Renal ultrasound: Official report pending. 5. CAT scan of the abdomen and pelvis was done. The patient's CAT scan of the abdomen and pelvis done, results pending. EKG done in the Emergency Room shows sinus rhythm, left axis deviation, left bundle branch block and ST-T changes. The patient seen by Dr. Amezquita. The patient was treated with IV fluid, Rocephin 1 gram, and the patient was advised to be admitted. IMPRESSION AND PLAN: 1. Altered mental status, etiology undetermined. 2. Acute renal failure and acute kidney injury and prerenal kidney injury. 3. Questionable and possible urinary tract infection. 4. Recurrent fall and gait dysfunction. 5. History of dementia. 6. Questionable swallowing and feeding dysfunction. 7. Leukocytosis with granulocytosis. 8. Normocytic anemia. 9. Hyperuricemia. 10. Hyperphosphatemia. 11. Transaminitis. 12. Elevated BNP with history of congestive heart failure. 13. Hematuria, pyuria, bacteriuria. 14. Left bundle branch block and left axis deviation. 15. Generalized osteopenia and thoracolumbar spondylosis with old healed left rib fracture. 16. Status post mastectomy for left breast carcinoma. 17. Gait dysfunction. 18. Recurrent falls. 19. 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 20. Questionable cystitis with thickened urinary bladder wall. 21. Questionable echogenic urinary bladder mass. 22. History of dementia. 23. History of hypovitaminosis D, history of anxiety, history of dementia, history of congestive heart failure, history of angina, history of dementia. 24. History of colovesicular and colovaginal fistula. PLAN: At this time, the patient will be [facility]. The patient's home medications will be ordered selectively due to the patient's medical condition and diagnostic data. The patient has been ordered CT and labs. Blood and urine cultures ordered. The patient's consultation has been ordered. Gastroenterology consultation has been ordered. The patient has been ordered GI consultation. The patient has been ordered for evaluation of colovesicular and colovaginal fistula. Infectious disease consultation ordered. Nephrology consultation ordered. Surgical consultation ordered. Procalcitonin level ordered. Current medications, the patient is resumed selenium 50 mcg daily, Ativan 0.5 mg twice a day, Ecotrin 81 mg daily, Exelon capsule 4.5 mg twice a day, GI and DVT prophylaxis started, Imdur 30 mg daily, cefepime 500 mg IV q. 12, Protonix 40 mg daily, Requip 8 mg p.o. daily, IV fluid has been started at 80 mL an hour. The patient received 3 boluses of IV fluid normal saline. Allopurinol 100 mg daily ordered. The patient has been ordered renal ultrasound and bladder ultrasound. CT abdomen and pelvis was ordered. Echo with Doppler ordered for evaluation of history of congestive heart failure. Renal diet ordered. Out of bed to chair. Ramirez catheter inserted in the Emergency Room. ADRIANO stockings and SCD ordered. The patient has been ordered for swallowing evaluation. At present, the patient was seen in the Emergency Room and ultrasound area. The patient's further management will be dependent upon the patient's clinical condition, hemodynamic status and as per the patient response to therapeutic intervention, as per the patient's diagnostic test results and as per recommendation by all the physicians involved in the care of the patient. The patient's condition, diagnosis, need for hospitalization, need for further diagnostic therapeutic intervention, need for evaluation and consultation with multiple specialties was discussed and explained to the patient's son and the at length in layman's language. All questions and concerns answered to their satisfaction. The patient is now admitted to transitional care unit in 315, bed 1. The patient is seen lying in the bed. The patient's is at bedside. The patient is lying in the bed. The patient is alert, awake, responsive, does not appear to be in any distress. The patient appears to be comfortable, answering questions. The patient is seen lying in the bed. Overnight nurse's notes were reviewed. PHYSICAL EXAMINATION: VITAL SIGNS: T-max 99.2, heart rate 64-70, blood pressure 140/64, 132/51, respirations 20, O2 sat is 93% on room air. Intake and output shows output of 240 and 300. HEAD: Normocephalic, atraumatic. HEENT: Shows pinkish, pale conjunctivae, anicteric sclerae, No oropharyngeal lesion. NECK: No neck rigidity. CHEST: Kyphosis. LUNGS: Show no rales, crackles, or wheezing. CARDIOVASCULAR: S1, S2, regular rhythm. Positive systolic murmur right second intercostal space, left sternal border, left second intercostal space. ABDOMEN: Soft, positive bowel sounds. GENITALIA: Female. Positive Ramirez catheter. EXTREMITIES: Show positive SCDs. No ADRIANO stockings. Slight swelling of the feet noted. NEUROLOGIC: The patient is alert, awake, responsive, is able to move upper and lower extremity without assistance. Gait examination is not tested. The patient is lying in the bed. MUSCULOSKELETAL: Shows a body mass index of 28. DIAGNOSTICS: 11/04, WBC 10.1, hemoglobin and hematocrit 9.1 and 27.9, platelets 247. Chemistry shows sodium of 145, potassium is low normal at 3.6, chloride 114, CO2 25, anion gap 10, BUN 23, creatinine 1.1, GFR 58, glucose 82, calcium 7.0, magnesium 1.9, AST 41, albumin is 2.6 which is slightly low. IMPRESSION: 1. Severe gait dysfunction, deconditioning and bedridden status. 2. Questionable and possible functional quadriplegia. 3. Escherichia coli urinary tract infection. 4. Acute renal failure. 5. Systemic inflammatory response syndrome versus possible sepsis secondary to Escherichia coli urinary tract infection. 6. Colovesical and colovaginal fistula. 7. History of hypertension. 8. Asymptomatic hypoxemia. 9. Normocytic iron deficiency anemia. 10. Normal potassium. 11 Acute renal failure with mild prerenal kidney injury. 12. Non-proteinuric chronic kidney disease stage III/IV. 13. Hypocalcemia. 14. Hypoalbuminemia. 15. Malnutrition. 16. History of anxiety disorder. 17. History of dementia. 18. Iron deficiency normocytic anemia. 19. History of anxiety disorder. 20. Hypovitaminosis D. 21. Hyperuricemia. 22. Deconditioning. 1. Acute renal failure. 2. Systemic inflammatory response syndrome versus possible sepsis secondary to Escherichia coli urinary tract infection. 3. Colovesicular and colovaginal fistula. 4. Acute renal failure. 5. Poor compliance. 6. Severe gait deconditioning and severe gait dysfunction and bedridden status. 7. Functional quadriplegia. 8. Transient asymptomatic hypoxemia. 9. Leukocytosis with granulocytosis. 10. Normocytic iron deficiency anemia. 11. Transient hypernatremia. 12. Acute renal failure. 13. Hyperuricemia. 14. Transaminitis. 15. . 16. Hyperuricemia. 17. Iron deficiency normocytic anemia. 18. Escherichia coli urinary tract infection with proteinuria, hematuria, bacteriuria and pyuria. 19. Sepsis secondary to Escherichia coli urinary tract infection. 20. Mild aortic stenosis. 21. Moderate aortic regurgitation, moderate mitral regurgitation and mild tricuspid regurgitation. 22. History of anxiety disorder, history of dementia, history of hypovitaminosis D and hyperuricemia. 1. Acute renal failure. 2. Questionable sepsis with leukocytosis, granulocytosis. 3. Normocytic anemia. 4. Hypertension. 5. History of dementia. 6. Leukocytosis with granulocytosis. 7. Normocytic anemia. 8. Transient hypernatremia. 9. Acute kidney injury and acute renal failure (resolving). 10. Severe gait dysfunction, deconditioning and possible functional quadriplegia. 11. Hyperuricemia. 12. Transaminitis. 13. Hyperprocalcitoninemia. 14. Hypovitaminosis D. 15. Acute renal failure and acute kidney injury. 16. Escherichia coli urinary tract infection with hematuria, pyuria, bacteriuria. 17. Systemic inflammatory response syndrome with possible sepsis secondary to Escherichia coli urinary tract infection with ____vaginal and ____ fistula. 18. Prerenal azotemia. 19. Chronic kidney disease, stage, IIIB, nonproteinuric. 20. Severe deconditioning and gait dysfunction. 21. Chronic ____, ____ fistula with Escherichia coli urinary tract infection. 22. Moderate aortic and moderate mitral regurgitation. 23. Mild mitral valve prolapse, calcified aortic valve with mild aortic stenosis and moderate aortic regurgitation and moderate mitral regurgitation and mild tricuspid regurgitation with left ventricular ejection fraction of 55%. 24. Gait dysfunction. 25. Deconditioning 26. Anxiety disorder. 27. Dementia. 28. Hypovitaminosis D. 29. Hyperuricemia. 1. Acute renal failure. 2. Questionable sepsis with leukocytosis and granulocytosis. 3. Normocytic anemia. 4. Questionable hemorrhagic cystitis. 5. Questionable hemorrhagic cystitis with intrinsic mural and perivesicular abnormalities and dependent echogenic material debris in the bladder. 6. Left bundle-branch block and left axis deviation. 7. Left lower lung pleural thickening. 8. Cardiomegaly. 9. Sigmoid diverticulosis. 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 11. 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 12. Status post hysterectomy. 13. Sigmoid diverticulosis. 14. Leukocytosis with granulocytosis. 15. Normocytic anemia. 16. Hyponatremia. 17. Slow-resolving acute renal failure. 18. Hyperuricemia. 19. History of dementia. 20. Deconditioning. 21. Gait dysfunction. 22. Recurrent fall. 23. Questionable functional quadriplegia. 24. Hypovitaminosis D. 25. History of dyslipidemia. 26. History of angina, history of hypertension, history of dementia. 1. Altered mental status, etiology undetermined. 2. Acute renal failure and acute kidney injury and prerenal kidney injury. 3. Questionable and possible urinary tract infection. 4. Recurrent fall and gait dysfunction. 5. History of dementia. 6. Questionable swallowing and feeding dysfunction. 7. Leukocytosis with granulocytosis. 8. Normocytic anemia. 9. Hyperuricemia. 10. Hyperphosphatemia. 11. Transaminitis. 12. Elevated BNP with history of congestive heart failure. 13. Hematuria, pyuria, bacteriuria. 14. Left bundle branch block and left axis deviation. 15. Generalized osteopenia and thoracolumbar spondylosis with old healed left rib fracture. 16. Status post mastectomy for left breast carcinoma. 17. Gait dysfunction. 18. Recurrent falls. 19. 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 20. Questionable cystitis with thickened urinary bladder wall. 21. Questionable echogenic urinary bladder mass. 22. History of dementia. 23. History of hypovitaminosis D, history of anxiety, history of dementia, history of congestive heart failure, history of angina, history of dementia. 24. History of colovesicular and colovaginal fistula. PLAN: At this time, the patient is to be continued on the transitional care unit. The patient has been ordered serial labs. CURRENT CONSULTATION: Infectious disease, nephrology and surgery. Procalcitonin level is pending. CURRENT MEDICATIONS: 1. Selenium 50 mcg daily. 2. IV fluid half normal saline at 60 mL an hour. 3. Ativan 0.5 mg twice a day. 4. Ecotrin 81 mg daily. 5. Exelon 4.5 mg twice a day. 6. Flagyl 500 mg p.o. q. 8. 7. Heparin 5000 subQ q. 8. 8. Imdur 30 mg daily. 9. Klonopin 4 mg at bedtime. 10. Lopressor 12.5 mg twice a day. 11. The patient was given a K rider for low normal potassium. 12. Protonix 40 daily. 13. Requip 8 mg daily. 14. Rocephin 1 gram IV daily as per infectious disease for 7 days. 15. Tylenol 650 in suppository q. 6 p.r.n. 16. Venofer 200 mg IV daily for 3 doses. 17. Vitamin D3 2000 units daily. 18. Allopurinol 100 mg daily. The patient is on dysphagia modified consistency diet, mechanically ordered, finely chopped, nectar thick, renal nondialysis diet. The patient has been ordered out of bed, ADRIANO stockings, SCDs. The patient is on nutritional supplement. Occupational therapy, physical therapy ordered. The patient's condition, diagnosis, treatment plan, management plan and recommendation by all physicians involved in the care of the patient explained to the patient and the patient's spouse who is present at the bedside. I have also advised the patient's spouse to contact aids social worker, Lanny, regarding discharge planning and discharge auction assistant who the patient's spouse already met with the aids social worker today. Dictated and electronically signed, not read. Rigo Vargas MD cc: [id number] TT: 11/04/2016 10:42:50 tn Dictated By: Rigo Vargas MD Transcribed Date and Time: 11/04/16 1042 Transcribed By: ALVINA Signed By: Date & Time Signed: Co-Signed By: Date & Time Signed: PHYSICAL EXAMINATION: GENERAL: The patient is alert, awake, responsive. The patient is still having fecal output in the Ramirez catheter. The patient is lying in the bed. The patient seen by Dr. Acosta this morning. VITAL SIGNS: T-max 99. Heart rate 80, 107, 105. Blood pressure 141/91 to 120/ 69. Respirations 20, O2 sat 95. HEAD: Normocephalic, atraumatic. HEENT: Shows pinkish, pale conjunctivae, dry oral mucosa. NECK: No neck rigidity. CHEST: Kyphosis. LUNGS: Show occasional rhonchi. CARDIOVASCULAR: S1, S2, regular rhythm. Positive systolic murmur right second intercostal space, left sternal border, left second intercostal space. ABDOMEN: Distended, questionable decreased bowel sounds. GENITALIA: Female. Positive Ramirez catheter. EXTREMITIES: Show trace swelling of the lower extremity. SCDs and ADRIANO stockings are missing despite my orders. NEUROLOGIC: Alert, awake, responsive. Does not appear to be in any distress at present. Lying in the bed, with patient's and son at bedside. DIAGNOSTICS: WBC count is 11.3, hemoglobin and hematocrit are 11 and 34.2, platelet 422. Yesterday's WBC was 14.3. WBC count has gone down to 11.3, hemoglobin and hematocrit 10.9 and 34.2, platelets 422. Sodium 145, potassium 3.5, chloride 111, CO2 23, anion gap 15, BUN has gone up to 45 from 37, creatinine has gone up to 1.5, GFR 40, glucose 84, calcium 7.8, phosphorus 4.1, magnesium 1.8. LFTs are normal. IMPRESSION: 1. Recurrent urinary retention with urinary bladder distention. 2. Questionable systemic inflammatory response syndrome versus sepsis with low- grade fever of 105, tachycardia 3. Leukocytosis with granulocytosis. 4. Normocytic anemia. 5. Hypokalemia. 6. Acute kidney injury. 7. Mild hypoalbuminemia 8. Severe deconditioning, gait dysfunction and bedridden status with questionable functional quadriplegia. 9. History of dementia, depression, Parkinson's disease, history of hypertension. 10. Hypovitaminosis D. 11. Deconditioning. 1. Recurrent urinary retention with urinary bladder distention. 2. Severe deconditioning and gait dysfunction. 3. Functional quadriplegia with severe deconditioning and gait dysfunction and bedridden status. 4. Small bilateral pleural effusion and bibasilar atelectasis. 5. Questionable sigmoid colitis with mural thickening. 6. Urinary retention with distended urinary bladder with air fluid level. 7. Hypertension. 8. Tachycardia. 9. Leukocytosis with granulocytosis. 10. Questionable systemic inflammatory response syndrome. 11. Normocytic anemia. 12. Acute recurrent kidney injury. 13. 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 14. Normocytic iron deficiency anemia. 15. Chronic kidney disease stage II/III. 1. Severe deconditioning, severe gait dysfunction and possible questionable functional quadriplegia. 2. Urinary retention. 3. Colovesicular and colovaginal fistula. 4. Abdominal distention, probably secondary to urinary retention. 5. Sepsis secondary to Escherichia coli urinary tract infection and colovesicular and colovaginal fistula. 6. Hypertension. 7. Questionable ileus with constipation, fecal retention, fecal stasis. 8. Asymptomatic hypoxemia. 9. Status post acute renal failure. 10. Normocytic iron deficiency anemia. 11. Status post IV Venofer infusion. 12. Leukocytosis with granulocytosis. 13. Status post acute renal failure. 14. Hypocalcemia. 15. Mild hypoalbuminemia. 16. History of anxiety disorder, history of dementia, history of depression, history of Parkinson's disease, hypovitaminosis D. 1. Severe deconditioning and gait dysfunction. 2. Deconditioning. 3. Questionable constipation and fecal retention. 4. Asymptomatic hypoxemia. 5. Leukocytosis with granulocytosis. 6. Normocytic anemia. 7. Prerenal kidney injury. 8. Status post acute renal failure. 9. 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 10. Deconditioning. 11. Gait dysfunction. 12. Sepsis secondary to Escherichia coli urinary tract infection. 13. History of colovesicular colovaginal fistula. 14. Dementia. 15. History of Parkinson disease. 16. History of anxiety disorder. 17. History of constipation. 1. Severe deconditioning and gait dysfunction. 2. Possible functional quadriplegia. 3. Nonproteinuric chronic kidney disease stage III. 4. Acute renal failure, secondary to prerenal kidney injury (resolved). 5. Mild venous stasis of the lower extremities. 6. Sepsis with Escherichia coli urinary tract infection. 7. Rectovesical and rectovaginal fistula. 8. Deconditioning. 9. Gait dysfunction. 10. Normocytic anemia. 11. Normocytic iron deficiency anemia. 12. Leukocytosis with granulocytosis. 13. Hypocalcemia. 14. Hypokalemia. 1. Severe gait dysfunction and deconditioning and possible functional quadriplegia. 2. Sepsis secondary to Escherichia coli urinary tract infection with history of rectovaginal, rectovesical fistula. 3. Escherichia coli urinary tract infection. 4. Acute renal failure. 5. Hypoxemia. 6. Normocytic anemia. 7. Leukocytosis with granulocytosis. 8. Status post acute renal failure. 9. Hypocalcemia. 10. Mild hypoalbuminemia. 11. History of dementia, Parkinson's disease, anxiety, and possible depression. 12. Prerenal kidney injury. 13. Non-proteinuric chronic kidney disease stage III. 14. History of anxiety. 15. History of dementia, history of depression, history of hypovitaminosis D. 1. Severe deconditioning and gait dysfunction and possible bedridden status and possible functional quadriplegia. 2. Sepsis secondary to a Escherichia coli urinary tract infection with history of vaginal and rectovesical fistula. 3. Deconditioning. 4. Escherichia coli urinary tract infection. 5. Acute renal failure. 6. History of hypertension. 7. Asymptomatic hypoxemia. 8. Kyphosis of the thoracic spine. 9. Hypoalbuminemia. 10. Hypocalcemia. 11. Normocytic anemia. 12. Hypokalemia. 13. Oropharyngeal dysphagia with impulsive and unsafe eating behaviors. 14. History of anxiety disorder. 15. History of dementia. 16. History of Parkinson disease. 17. History of normocytic iron deficiency anemia. 1. Severe gait dysfunction, deconditioning and bedridden status. 2. Questionable and possible functional quadriplegia. 3. Escherichia coli urinary tract infection. 4. Acute renal failure. 5. Systemic inflammatory response syndrome versus possible sepsis secondary to Escherichia coli urinary tract infection. 6. Colovesical and colovaginal fistula. 7. History of hypertension. 8. Asymptomatic hypoxemia. 9. Normocytic iron deficiency anemia. 10. Normal potassium. 11 Acute renal failure with mild prerenal kidney injury. 12. Non-proteinuric chronic kidney disease stage III/IV. 13. Hypocalcemia. 14. Hypoalbuminemia. 15. Malnutrition. 16. History of anxiety disorder. 17. History of dementia. 18. Iron deficiency normocytic anemia. 19. History of anxiety disorder. 20. Hypovitaminosis D. 21. Hyperuricemia. 22. Deconditioning. 1. Acute renal failure. 2. Systemic inflammatory response syndrome versus possible sepsis secondary to Escherichia coli urinary tract infection. 3. Colovesicular and colovaginal fistula. 4. Acute renal failure. 5. Poor compliance. 6. Severe gait deconditioning and severe gait dysfunction and bedridden status. 7. Functional quadriplegia. 8. Transient asymptomatic hypoxemia. 9. Leukocytosis with granulocytosis. 10. Normocytic iron deficiency anemia. 11. Transient hypernatremia. 12. Acute renal failure. 13. Hyperuricemia. 14. Transaminitis. 15. . 16. Hyperuricemia. 17. Iron deficiency normocytic anemia. 18. Escherichia coli urinary tract infection with proteinuria, hematuria, bacteriuria and pyuria. 19. Sepsis secondary to Escherichia coli urinary tract infection. 20. Mild aortic stenosis. 21. Moderate aortic regurgitation, moderate mitral regurgitation and mild tricuspid regurgitation. 22. History of anxiety disorder, history of dementia, history of hypovitaminosis D and hyperuricemia. 1. Acute renal failure. 2. Questionable sepsis with leukocytosis, granulocytosis. 3. Normocytic anemia. 4. Hypertension. 5. History of dementia. 6. Leukocytosis with granulocytosis. 7. Normocytic anemia. 8. Transient hypernatremia. 9. Acute kidney injury and acute renal failure (resolving). 10. Severe gait dysfunction, deconditioning and possible functional quadriplegia. 11. Hyperuricemia. 12. Transaminitis. 13. Hyperprocalcitoninemia. 14. Hypovitaminosis D. 15. Acute renal failure and acute kidney injury. 16. Escherichia coli urinary tract infection with hematuria, pyuria, bacteriuria. 17. Systemic inflammatory response syndrome with possible sepsis secondary to Escherichia coli urinary tract infection with ____vaginal and ____ fistula. 18. Prerenal azotemia. 19. Chronic kidney disease, stage, IIIB, nonproteinuric. 20. Severe deconditioning and gait dysfunction. 21. Chronic ____, ____ fistula with Escherichia coli urinary tract infection. 22. Moderate aortic and moderate mitral regurgitation. 23. Mild mitral valve prolapse, calcified aortic valve with mild aortic stenosis and moderate aortic regurgitation and moderate mitral regurgitation and mild tricuspid regurgitation with left ventricular ejection fraction of 55%. 24. Gait dysfunction. 25. Deconditioning 26. Anxiety disorder. 27. Dementia. 28. Hypovitaminosis D. 29. Hyperuricemia. 1. Acute renal failure. 2. Questionable sepsis with leukocytosis and granulocytosis. 3. Normocytic anemia. 4. Questionable hemorrhagic cystitis. 5. Questionable hemorrhagic cystitis with intrinsic mural and perivesicular abnormalities and dependent echogenic material debris in the bladder. 6. Left bundle-branch block and left axis deviation. 7. Left lower lung pleural thickening. 8. Cardiomegaly. 9. Sigmoid diverticulosis. 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 11. 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 12. Status post hysterectomy. 13. Sigmoid diverticulosis. 14. Leukocytosis with granulocytosis. 15. Normocytic anemia. 16. Hyponatremia. 17. Slow-resolving acute renal failure. 18. Hyperuricemia. 19. History of dementia. 20. Deconditioning. 21. Gait dysfunction. 22. Recurrent fall. 23. Questionable functional quadriplegia. 24. Hypovitaminosis D. 25. History of dyslipidemia. 26. History of angina, history of hypertension, history of dementia. 1. Altered mental status, etiology undetermined. 2. Acute renal failure and acute kidney injury and prerenal kidney injury. 3. Questionable and possible urinary tract infection. 4. Recurrent fall and gait dysfunction. 5. History of dementia. 6. Questionable swallowing and feeding dysfunction. 7. Leukocytosis with granulocytosis. 8. Normocytic anemia. 9. Hyperuricemia. 10. Hyperphosphatemia. 11. Transaminitis. 12. Elevated BNP with history of congestive heart failure. 13. Hematuria, pyuria, bacteriuria. 14. Left bundle branch block and left axis deviation. 15. Generalized osteopenia and thoracolumbar spondylosis with old healed left rib fracture. 16. Status post mastectomy for left breast carcinoma. 17. Gait dysfunction. 18. Recurrent falls. 19. 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 20. Questionable cystitis with thickened urinary bladder wall. 21. Questionable echogenic urinary bladder mass. 22. History of dementia. 23. History of hypovitaminosis D, history of anxiety, history of dementia, history of congestive heart failure, history of angina, history of dementia. 24. History of colovesicular and colovaginal fistula. 1. questionable atrial fibrillation with rapid ventricular response. 2. Left anterior hemiblock. 3. Hypertensive cardiovascular disease. 4. Questionable lateral ischemic changes. PLAN: At this time, the patient has been consulted with infectious disease, urology, surgery, nephrology, cardiology. MEDICATIONS: The patient has been ordered: 1. Ativan 0.5 twice a day. 2. Coreg 6.25 twice a day. 3. Exelon capsule 4.5 mg twice a day. 4. Flagyl 500 mg p.o. q. 8. 5. Heparin 5000 subQ 8. 6. Selenium 200 mcg p.o. daily. 7. Imdur 30 mg daily. 8. Klonopin 4 mg at bedtime. 9. Potassium has been supplemented with 20 mEq IV q. 2 hours x 2. 10. Protonix 40 daily. 11. Requip 8 mg daily. 12. The patient is on 0.9 normal saline at 80 mL an hour. 13. The patient is on vitamin D3 2000 units daily. 14. Zosyn 3.375 IV q. 6 hours. The patient's Coreg will be considered to be increased to 12.5 mg twice a day for optimization of the tachycardia and control of heart rate and hypertension. The patient has been ordered out of bed, ADRIANO stockings, SCDs, physical therapy, occupational therapy. Urology progress note was reviewed. I am unable to find any recommendation and plan on urology progress note. The patient seen by surgery, Dr. Alfredo, who is recommending colostomy and questionable suprapubic cystostomy if family agrees. Family resisting above procedures. The patient's EKG from yesterday was reviewed which shows atrial fibrillation with left anterior hemiblock and lateral coronary ischemia. PLAN: At this time, due to these new findings, we will order a stat CPK and troponin. The patient's beta juan alberto has been increased. The patient is on subcutaneous heparin at present. We will await further recommendation from cardiology, nephrology, surgery, urology, infectious disease. According to the surgery evaluation, patient's family is still resisting colostomy and other procedures. The patient's family has been explained about the patient's risk and consequences, and benefits were explained to the patient's son and on multiple occasions. Dictated and electronically signed; not read. Rigo Vargas MD cc: [id number] TT: 11/13/2016 14:27:11 mn [email or web address]
--- NOTE | 2016-11-13 15:22 | CARD ---
APPROVED REPORT EKG Measurement Heart [id number] <Conclusion> Atrial fibrillation with rapid ventricular response Left axis deviation Left ventricular hypertrophy with QRS widening T wave abnormality, consider lateral ischemia or digitalis effect Abnormal ECG
[2016-11-13] MEDS ORDERED: Sodium Chloride 0.9% 250 ML IV STA (15:27)
--- NOTE | 2016-11-13 17:55 | CP.PCM.PCO ---
Physician Communication Note - Physician Communication Note Physician Communication Note: Family refusing colostomy=A Fib/Sepsis/low BP
--- NOTE | 2016-11-13 18:15 | CP.PCM.CON ---
History of Present Illness - History of Present Illness History of Present Illness: 81 year old female with PMH of chronic CHF, Parkinson's disease, history of breast cancer, history of rectovesical and rectovaginal fistula was initially admitted for UTI associated with the rectovesical fistula. She was then treated for this, improved and was transferred to [facility]. She is now transferred back to the medical floor because she continues to have stool in her urinary bladder and the drainage through the Ramirez catheter does not seem to be adequate. She also developed leukocytosis and Infectious diseases consult is requested to further evaluate and manage. The patient denies fever or chills, no headache or dizziness, no SOB, no chest pain, no cough or colds, no sore throat, no diarrhea , no dysphagia. Review of Systems - Review of Systems All systems: reviewed and no additional remarkable complaints except (as per HPI ) Past Patient History - Infectious Disease Hx of Infectious Diseases: None - Past Medical History & Family History Past Medical History?: Yes - Past Social History Smoking Status: Never Smoked - CARDIAC Hx Cardiac Disorders: Yes Hx Congestive Heart Failure: Yes Hx Hypertension: Yes - PULMONARY Hx Respiratory Disorders: No Hx Chronic Obstructive Pulmonary Disease (COPD): No - NEUROLOGICAL Hx Neurological Disorder: Yes HX Cerebrovascular Accident: No Hx Parkinson's Disease: Yes - HEENT Hx HEENT Problems: No - RENAL Hx Chronic Kidney Disease: Yes (URINARY RETENTION) Hx Renal Failure: No - ENDOCRINE/METABOLIC Hx Endocrine Disorders: No Hx Diabetes Mellitus Type 1: No Hx Diabetes Mellitus Type 2: No Hx Hypothyroidism: No - HEMATOLOGICAL/ONCOLOGICAL Hx Blood Disorders: Yes Hx Cancer: Yes (breast-LEFT MASTECTOMY.COMPLETED CHEMO AND RADIATION -IN REMISSION) Hx Chemotherapy: Yes - INTEGUMENTARY Hx Dermatological Problems: Yes Other/Comment: MULTIPLE PUSTULES AND BROWN PLAQUES TO FACE AND BACK. - MUSCULOSKELETAL/RHEUMATOLOGICAL Hx Arthritis: No Hx Falls: Yes - GASTROINTESTINAL Hx Gastrointestinal Disorders: Yes (COLOVESICAL FISTULA) Hx Gastroesophageal Reflux: No - GENITOURINARY/GYNECOLOGICAL Hx Genitourinary Disorders: Yes (BREAST CA -LEFT MASTECTOMY.) Other/Comment: VESICOVAGINAL FISTULA,RECTOVAGINAL FISTULA,HYSTERECTOMY - PSYCHIATRIC Hx Psychophysiologic Disorder: Yes Hx Anxiety: Yes Hx Substance Use: No - SURGICAL HISTORY Hx Surgeries: Yes Hx Hysterectomy: Yes Hx Mastectomy: Yes Other/Comment: breat cancer in the past.LEFT MASTECTOMY - ANESTHESIA Hx Anesthesia: Yes Hx Anesthesia Reactions: No Meds Allergies/Adverse Reactions: Allergies Allergy/AdvReac Type Severity Reaction Status Date / Time No Known Allergies Allergy Verified 11/12/16 21:15 - Medications Medications: Current Medications Carvedilol (Coreg) 6.25 mg PO 0800,1800 [facility] Cholecalciferol (Vitamin D) 2,000 iu PO DAILY [facility] Clonazepam (Klonopin) 4 mg PO HS [facility] PRN Reason: Protocol Last Admin: 11/12/16 22:20 Dose: Not Given Heparin Sodium (Porcine) (Heparin) 5,000 units SC Q8 [facility] PRN Reason: Protocol Last Admin: 11/13/16 05:32 Dose: 5,000 units Home Med (Home Med) 1 unit PO DAILY [facility] Sodium Chloride (Sodium Chloride 0.9%) 1,000 mls @ 80 mls/hr IV .[id number] [facility] Last Admin: 11/13/16 05:35 Dose: 80 mls/hr Piperacillin Sod/Tazobactam Sod (Zosyn 3.375 In Ns 100ml) 100 mls @ 200 mls/hr IVPB Q6 [facility] PRN Reason: Protocol Stop: 11/20/16 07:16 Isosorbide Mononitrate (Imdur) 30 mg PO 0600 [facility] Last Admin: 11/13/16 05:33 Dose: 30 mg Lorazepam (Ativan) 0.5 mg PO BID [facility] PRN Reason: Protocol Last Admin: 11/12/16 17:58 Dose: 0.5 mg Metronidazole (Flagyl) 500 mg PO Q8 [facility] PRN Reason: Protocol Last Admin: 11/13/16 05:32 Dose: 500 mg Pantoprazole Sodium (Protonix Ec Tab) 40 mg PO 0630 [facility] Last Admin: 11/13/16 05:33 Dose: 40 mg Rivastigmine (Exelon Cap) 4.5 mg PO 0800,1800 [facility] Last Admin: 11/12/16 17:59 Dose: 4.5 mg Ropinirole HCl (Requip) 8 mg PO 0800 [facility] Physical Exam - Constitutional Appears: Non-toxic, No Acute Distress - Head Exam Head Exam: NORMAL INSPECTION - ENT Exam ENT Exam: Mucous Membranes Moist - Neck Exam Neck exam: Negative for: Lymphadenopathy, Meningismus - Respiratory Exam Respiratory Exam: Decreased Breath Sounds - Cardiovascular Exam Cardiovascular Exam: +S1, +S2 - GI/Abdominal Exam GI & Abdominal Exam: Soft. absent: Tenderness Results - Vital Signs Recent Vital Signs: Last Vital Signs Temp 99 F 11/12/16 22:38 Pulse 107 H 11/12/16 22:38 Resp 18 11/12/16 22:38 BP 141/91 H 11/12/16 22:38 Pulse Ox 95 11/12/16 16:00 - Labs Result Diagrams: 11/13/16 07:00 11/13/16 07:00 Assessment & Plan - Assessment and Plan (Free Text) Plan: Assessment sepsis secondary to rectovesical fistula with inadequate drainage of urine and stool; S/P treatment for E.coli - patient still affected by the rectovesical fistula and stool continues to fill the urinary bladder and come out of the urine chronic renal failure chronic CHF Parkinson's disease history of breast cancer history of rectovesical and rectovaginal fistula Plan we have started the patient on Zosyn pending surgical intervention (ie. suprapubic catheter insertion and colostomy) which is contigent upon Cardiology evaluation and clearance) Discussed with family, Dr. Alfredo previously and Dr. Vargas Overall prognosis is poor
--- NOTE | 2016-11-13 19:47 | PN ---
DATE: 11/13/2016 The patient is an 81-year-old female with history of hypertension, CHF, CKD and known rectovesical/re ctovaginal fistulas, recently discharged after admission with UTI, sepsis. Readmitted yesterday sayda abraham residing in TCU due to acute renal failure, SIRS/sepsis and urinary retention. The patient reports feeling well. Denies any abdominal pain. Tolerated diet today. Denies shortness of breath. PHYSICAL EXAMINATION: VITAL SIGNS: This morning, blood pressure 120/69, heart rate 105, respirations 20, temperature 97.8, O2 sat 95% on room air. GENERAL: No distress, speaking coherently in full sentences. HEENT: Moist mucous membranes. Nonicteric. CARDIOVASCULAR: Soft systolic murmur at apex. Elevated JVD. CHEST: Mild basal rales, decreased breath sounds at left base. ABDOMEN: Distended, nontender. EXTREMITIES: Mild bilateral lower leg edema. LABORATORIES: This morning, WBC 11.3, hemoglobin 10.9, hematocrit 34.2, platelets 422. Chemistry: Sodium 145, potassium 3.5, chloride 111, bicarbonate 23, BUN 45, creatinine 1.5, calcium 7.8, phospho phi 4.1, albumin 2.8. Procalcitonin 0.38. ASSESSMENT: 1. Systemic inflammatory response syndrome/sepsis, leukocytosis, improved. The patient is afebrile today after being started on broad-spectrum antibiotics in the setting of rectovesical fistula and ur inary retention with overt stool in Ramirez bag. Antibiotics switched from cefepime to Zosyn today at 3.375 grams q. 6 hours. Consider decreasing dose to 2.25 grams q. 6 hours in the setting of decrease d creatinine clearance of close to 30 mL per minute. 2. Acute renal failure, acute kidney injury on chronic kidney disease, now secondary to bladder obst ruction due to overt stool from rectovesical fistula. Renal function currently stable with serum cre atinine at 1.5, increased from 1.0 over the last few days. The patient now with free flowing urine s een in Ramirez bag. However, concerned that Ramirez may get obstructed at any time. 3. Rectovesical fistula. Case discussed with attending surgeon, who has already given patient and h er family appropriate surgical options and is still waiting for their decision. The patient and her family counseled that surgical intervention is the only definitive treatment at this time and that ta arnold the patient home without surgical intervention would mean impending sepsis and acute renal failu re from urinary obstruction. 4. Congestive heart failure. The patient with bilateral pleural effusions on CT, history of systoli c dysfunction, although most recent echo shows preserved ejection fraction. Diuretics currently bein g held due to low normal blood pressure as well as possibility of a post-obstructive diuresis. 5. Atrial fibrillation, new finding on EKG. The patient started on p.o. Cardizem as well as heparin drip by cardiology. The patient currently appears to have regular rate. 6. Hypertension. Low normal blood pressure readings for the last couple of days. Coreg being held. Should hold Imdur as well as patient just started on p.o. Cardizem. Wally Ash MD cc: [id number] TT: 11/13/2016 19:46:25 Confirmation # [id number] Dictation # [id number] en
[2016-11-14 02:15] LABS: ADD MANUAL DIFF? NO
[2016-11-14 02:46] LABS: BASO # 0.02 K/mm3 (0.0-2.0); BASO % 0.2 % (0.0-3.0); EOS # 0.2 (0.0-0.7); EOS % 2.1 % (1.5-5.0); GRAN # 5.57 (1.4-6.5); GRAN % 58.4 % (50.0-68.0); HEMATOCRIT 33.4 % (36.0-48.0); LYMPH # 2.8 (1.2-3.4); LYMPH % 29.6 % (22.0-35.0); MEAN CELL VOLUME 97.9 fL (80.0-105.0); MEAN CORPUSCULAR HEMOGLOBIN 30.8 pg (25.0-35.0); MEAN CORPUSCULAR HGB CONC 31.4 g/dl (31.0-37.0); MEAN PLATELET VOLUME 9.6 fl (7.0-11.0); MONO # 0.9 (0.1-0.6); MONO % 9.7 % (1.0-6.0); PLATELET COUNT 355 10^3/uL (120.0-450.0); RED CELL DISTRIBUTION WIDTH 19.1 % (11.5-14.5); WHITE BLOOD COUNT 9.6 10^3/ul (4.5-11.0)
[2016-11-14 03:11] LABS: ALB/GLOB RATIO 0.7 (1.1-1.8); BILIRUBIN,DIRECT 0.4 mg/dL (0.0-0.4); BILIRUBIN,TOTAL 0.4 mg/dL (0.2-1.3); CALCIUM 7.3 mg/dL (8.4-10.5); POTASSIUM 3.9 mmol/L (3.6-5.0); TOTAL PROTEIN 6.2 g/dL (5.8-8.3)
[2016-11-14] MEDS: Sodium Chloride 0.9% 1,000 ML IV SCH (05:24)
[2016-11-14] MEDS: Pantoprazole 40 mg EC Tab PO SCH (05:30)
[2016-11-14] MEDS: Piperacillin/Tazobact 3.375 gm 100 ML IVPB SCH ×3 (05:55→17:54)
[2016-11-14] MEDS ORDERED: Potassium Chloride 10 mEq ER Tab PO SCH (08:00)
--- NOTE | 2016-11-14 08:30 | CON ---
DATE: 11/13/2016 The patient is in room 316, bed 1. REASON FOR CONSULTATION: Preop evaluation and risk stratification for surgery for colovesical and co lovaginal fistula, aortic stenosis, mitral regurg. HISTORY OF PRESENT ILLNESS: The patient is an 81-year-old female, was on transitional care unit for colovesical and colovaginal fistula and she was getting septic and BUN was rising and she was not put ting out urine. The patient was sent to Emergency Room and now she is admitted to medical floor for management of infection and renal dysfunction and possible surgery. The patient denies chest pain, s hortness of breath or palpitation. The patient known to have hypertension, hyperlipidemia, mild aort ic stenosis, moderate aortic regurgitation, moderate mitral regurgitation, mild tricuspid regurgitati on. PREVIOUS CARDIAC WORKUP: Echocardiogram on 10/23/2016 showed ejection fraction of 55%, mild mitral va lve prolapse, calcified aortic valve showing mild aortic stenosis, moderate aortic regurgitation, mod erate mitral regurgitation, mild tricuspid regurgitation. The patient in the past 3 years, has refuse d stress test all the time. PERSONAL HISTORY: Denies smoking, denies drinking. ALLERGIES: No known allergies. HOME MEDICATIONS: Included Vytorin, vitamin E, torsemide, selenium, Requip, Exelon patch, losartan, lorazepam, isosorbide mono, carvedilol, aspirin. REVIEW OF SYSTEMS: All the systems reviewed, positives mentioned in history, otherwise negative. PHYSICAL EXAMINATION: VITAL SIGNS: Blood pressure 120/69, respirations 20, pulse 105, irregular, temperature 97.8. HEAD: Normocephalic. EYES: Pupils normal. Conjunctivae slightly pale. NECK: JVP low. Carotid equal. THORAX: AP diameter normal. LUNGS: Clear. CARDIOVASCULAR: S1 and S2, systolic murmur, no rub. ABDOMEN: Soft, bowel sounds normal, no organomegaly. EXTREMITIES: No clubbing, no cyanosis. Presently has no edema. LABORATORY DATA: WBC 11.3, hemoglobin 10.9, hematocrit 34.2, platelets 422. Sodium 145, potassium 3 .5, BUN 45, creatinine 1.5. AST, ALT normal. Albumin 2.8. Stat EKG was done due to irregular rate. It shows atrial fibrillation. DIAGNOSES: Colovesical and colovaginal fistula, left bundle branch block on EKG, new onset atrial fi brillation with a rate around 104 per minute, mild aortic stenosis, moderate aortic regurgitation, mo derate mitral regurgitation, preserved left ventricular function with ejection fraction of 55%, hyper tension. According to family, at times patient also confused. PLAN: The patient's Coreg has been on hold. We will give atenolol 12.5 mg p.o. stat dose. The franklyn ent is on 3R. We will put on remote tele and see how she responds to small dose atenolol. We will a lso start heparin. The patient already received potassium for low potassium level. The patient gett ing 0.9% saline 80 mL an hour. We will continue that. The patient on piperacillin with tazobactam 3 .375 gram IV q. 6 hours. The patient will have repeat blood work in the morning. As to the surgery, patient is high risk for surgery because of underlying comorbidities, but patient does not have any absolute contraindication from cardiac point of view. Will suggest to hydrate the patient and contin ue antibiotics and follow up labs. If patient stays high rate with beta juan alberto, then patient may ne ed Cardizem drip, but that cannot be put on 3R, so then patient will have to be moved to 2R. We are going to monitor on 2R and give atenolol 12.5 stat. If needed, I will give another dose of atenolol 12.5 stat and if heart rate is stable with those doses, then she can stay on 3R along with heparin an d IV therapy and follow up labs and as mentioned before, the patient is going to be a high risk surge ry. Risk and benefit ratio has to be considered. I explained to the family, the son and the . They probably want to proceed with the suprapubic cystostomy at the present time, but they are not even sure about that at this moment. I had a detailed discussion with them again today. We will fo llow with you. Bishop Peoples MD cc: [id number] TT: 11/13/2016 17:17:49 Confirmation # [id number] Dictation # [id number] en
--- NOTE | 2016-11-14 09:23 | PCM.URO ---
Urology Progress Note - Objective Lab Results Last 24 Hours: Laboratory Results - last 24 hr 11/13/16 11/13/16 11/13/16 07:30 12:15 18:46 WBC RBC Hgb Hct MCV MCH MCHC RDW Plt Count MPV Gran % Lymph % (Auto) Deuel % (Auto) Eos % (Auto) Baso % (Auto) Gran # Lymph # Deuel # Eos # Baso # APTT 86.0 H* 101.0 H* Sodium Potassium Chloride Carbon Dioxide Anion Gap BUN Creatinine Est GFR ( Amer) Est GFR (Non-Af Amer) Random Glucose Calcium Magnesium Total Bilirubin Direct Bilirubin AST ALT Alkaline Phosphatase Total Creatine Kinase 25 L Troponin I 0.04 Total Protein Albumin Globulin Albumin/Globulin Ratio Procalcitonin 0.38 11/14/16 11/14/16 11/14/16 02:00 02:20 02:30 WBC 9.6 RBC 3.41 L Hgb 10.5 L Hct 33.4 L MCV 97.9 MCH 30.8 MCHC 31.4 RDW 19.1 H Plt Count 355 MPV 9.6 Gran % 58.4 Lymph % (Auto) 29.6 Deuel % (Auto) 9.7 H Eos % (Auto) 2.1 Baso % (Auto) 0.2 Gran # 5.57 Lymph # 2.8 Deuel # 0.9 H Eos # 0.2 Baso # 0.02 APTT 67.1 H Sodium 146 Potassium 3.9 Chloride 115 H Carbon Dioxide 21 Anion Gap 14 BUN 47 H Creatinine 1.6 H Est GFR ( Amer) 38 Est GFR (Non-Af Amer) 31 Random Glucose 94 Calcium 7.3 L Magnesium 2.0 Total Bilirubin 0.4 Direct Bilirubin 0.4 AST 25 ALT 27 Alkaline Phosphatase 57 Total Creatine Kinase Troponin I Total Protein 6.2 Albumin 2.6 L Globulin 3.6 Albumin/Globulin Ratio 0.7 L Procalcitonin Intake & Output: Intake & Output 11/13/16 11/14/16 11/14/16 18:59 06:59 18:59 Intake Total 8030 Output Total 7000 Balance 1030 Intake: IV 1030 Left Forearm 960 right hand 70 Other 7000 Output: Urine 7000 Urine, Voided 250 Other: # Bowel Movements 1 Vital Signs: Vital Signs - 24 hr 11/13/16 11/13/16 11/13/16 10:00 11:02 12:08 Temperature Pulse Rate 102 H Respiratory Rate Blood Pressure 120/69 120/69 O2 Sat by Pulse Oximetry 11/13/16 11/13/16 11/13/16 14:00 14:28 16:00 Temperature 98.0 F Pulse Rate 66 63 Respiratory 19 Rate Blood Pressure 80/38 L 102/56 L O2 Sat by Pulse 95 Oximetry 11/13/16 11/13/16 11/13/16 17:38 20:00 22:00 Temperature 97.8 F Pulse Rate 57 L 54 L Respiratory 19 Rate Blood Pressure 102/56 L 111/58 L O2 Sat by Pulse 96 Oximetry 11/13/16 11/14/16 11/14/16 23:15 02:00 04:00 Temperature 97 F L 97.7 F Pulse Rate 58 L 53 L 56 L Respiratory 18 20 Rate Blood Pressure 104/54 L 114/53 L O2 Sat by Pulse 94 L 95 Oximetry 11/14/16 06:00 Temperature 97.6 F Pulse Rate 59 L Respiratory 22 Rate Blood Pressure 113/52 L O2 Sat by Pulse 97 Oximetry
[2016-11-14 09:38] LABS: INR 3.02 (0.93-1.08)
--- NOTE | 2016-11-14 11:09 | CP.PCM.PCO ---
Physician Communication Note - Physician Communication Note Physician Communication Note: Finally Colostomy consent/INR 3?=repeat PT-?Vit K Rx
--- NOTE | 2016-11-14 11:37 | PN ---
DATE: 11/14/2016 The patient is in 363, bed 1. Overnight events were noted. The patient is placed on telemetry now because of new onset atrial fibrillation. The patient was seen by cardiology. The patient was started on heparin drip, then discontinued because of elevated PT, INR and PTT. The patient's overnight nurse 's notes were reviewed. The patient continued to have fecal output through the Ramirez. The patient had episodes of hypotension. The patient was found to be awake, responsive. Family at bedside. The patient does not offer any complaints. The patient has continuous bladder irrigation running with Ramirez draining clear urine. No stool or blood noted this morning according to the nurse's notes. PHYSICAL EXAMINATION: VITAL SIGNS: T-max is 97.7. Pulse rate 56-58. Yesterday's heart rate was 102. Respiration 20. Blood pressure dropping yesterday in the afternoon to 80/ 38, 102/56, 111/58, 104/54, 113/52. O2 sat 97%. INTAKE AND OUTPUT: If it is accurate, intake is 8030, output is 7000 mL. GENERAL: The patient is seen lying in the bed. HEAD: Normocephalic, atraumatic. HEENT: Shows pinkish, pale conjunctivae. Dry oral mucosa. NECK: No neck rigidity. CHEST: Kyphosis. LUNGS: Shows questionable decreased breath sounds at the bases, left more than the right. CARDIOVASCULAR: Shows S1, S2, irregular rhythm, positive systolic murmur left sternal border, right second intercostal space, left second intercostal space. ABDOMEN: Soft, slightly protuberant. GENITALIA: Female. Positive Ramirez catheter. EXTREMITIES: Shows trace swelling of the lower extremity and the feet. No pitting edema. MUSCULOSKELETAL: Shows a body mass index of 22. NEUROLOGIC: The patient is alert, awake, responsive. Lying in the bed. GAIT: Not tested. VASCULAR: Not tested. PSYCHIATRIC: History of Parkinson's, depression, anxiety, dementia. DIAGNOSTICS: From 11/14: WBCs down to 9.6, hemoglobin and hematocrit 10.5 and 33.4, platelets 355. PT 32.6, INR 3.02, PTT 86, 101, 67, greater than 180. Heparin drip stopped. Sodium 146, potassium 3.9, chloride 115, CO2 21, anion gap 14, BUN 47, creatinine 1.6, GFR 38, glucose 94, calcium 7.3, magnesium 2.0. LFTs are normal. Troponin 0.04. Albumin 2.6. Today's EKG is pending. Yesterday's EKG reviewed. IMPRESSION AND PLAN: 1. Sepsis with leukocytosis and granulocytosis. 2. New onset atrial fibrillation with rapid ventricular response and indeterminate troponin. 3. Moderate aortic regurgitation, mild aortic stenosis, moderate mitral regurgitation with left ventricular ejection fraction of 55%. 4. Left anterior hemiblock. 5. Questionable left bundle branch block. 6. Lateral wall ischemic changes on the EKG. 7. Severe deconditioning, gait dysfunction versus questionable and possible functional quadriplegia. 8. Sepsis, secondary to rectovesical and rectovaginal fistula and inadequate drainage of urine and stool. 9. Status post treatment for Escherichia coli urinary tract infection, secondary to rectovesical, rectovaginal fistula. 10. Acute kidney injury. 11. Transient hypotension. 12. History of hypertension. 13. Anemia. 14. Leukocytosis. 15. Normocytic iron deficiency anemia. 16. Mild coagulopathy, secondary to anticoagulation. 17. Hypokalemia. 18. Acute kidney injury with underlying chronic kidney disease stage IV. 19. Hypoalbuminemia. 20. Indeterminate troponin. 21. Hypotension with sepsis and new onset atrial fibrillation with rapid ventricular response. 22. History of Parkinson disease, dementia, history of anxiety, depression, history of hypovitaminosis D. 1. Recurrent urinary retention with urinary bladder distention. 2. Questionable systemic inflammatory response syndrome versus sepsis with low- grade fever of 105, tachycardia 3. Leukocytosis with granulocytosis. 4. Normocytic anemia. 5. Hypokalemia. 6. Acute kidney injury. 7. Mild hypoalbuminemia 8. Severe deconditioning, gait dysfunction and bedridden status with questionable functional quadriplegia. 9. History of dementia, depression, Parkinson's disease, history of hypertension. 10. Hypovitaminosis D. 11. Deconditioning. 1. Recurrent urinary retention with urinary bladder distention. 2. Severe deconditioning and gait dysfunction. 3. Functional quadriplegia with severe deconditioning and gait dysfunction and bedridden status. 4. Small bilateral pleural effusion and bibasilar atelectasis. 5. Questionable sigmoid colitis with mural thickening. 6. Urinary retention with distended urinary bladder with air fluid level. 7. Hypertension. 8. Tachycardia. 9. Leukocytosis with granulocytosis. 10. Questionable systemic inflammatory response syndrome. 11. Normocytic anemia. 12. Acute recurrent kidney injury. 13. 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 14. Normocytic iron deficiency anemia. 15. Chronic kidney disease stage II/III. 1. Severe deconditioning, severe gait dysfunction and possible questionable functional quadriplegia. 2. Urinary retention. 3. Colovesicular and colovaginal fistula. 4. Abdominal distention, probably secondary to urinary retention. 5. Sepsis secondary to Escherichia coli urinary tract infection and colovesicular and colovaginal fistula. 6. Hypertension. 7. Questionable ileus with constipation, fecal retention, fecal stasis. 8. Asymptomatic hypoxemia. 9. Status post acute renal failure. 10. Normocytic iron deficiency anemia. 11. Status post IV Venofer infusion. 12. Leukocytosis with granulocytosis. 13. Status post acute renal failure. 14. Hypocalcemia. 15. Mild hypoalbuminemia. 16. History of anxiety disorder, history of dementia, history of depression, history of Parkinson's disease, hypovitaminosis D. 1. Severe deconditioning and gait dysfunction. 2. Deconditioning. 3. Questionable constipation and fecal retention. 4. Asymptomatic hypoxemia. 5. Leukocytosis with granulocytosis. 6. Normocytic anemia. 7. Prerenal kidney injury. 8. Status post acute renal failure. 9. 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 10. Deconditioning. 11. Gait dysfunction. 12. Sepsis secondary to Escherichia coli urinary tract infection. 13. History of colovesicular colovaginal fistula. 14. Dementia. 15. History of Parkinson disease. 16. History of anxiety disorder. 17. History of constipation. 1. Severe deconditioning and gait dysfunction. 2. Possible functional quadriplegia. 3. Nonproteinuric chronic kidney disease stage III. 4. Acute renal failure, secondary to prerenal kidney injury (resolved). 5. Mild venous stasis of the lower extremities. 6. Sepsis with Escherichia coli urinary tract infection. 7. Rectovesical and rectovaginal fistula. 8. Deconditioning. 9. Gait dysfunction. 10. Normocytic anemia. 11. Normocytic iron deficiency anemia. 12. Leukocytosis with granulocytosis. 13. Hypocalcemia. 14. Hypokalemia. 1. Severe gait dysfunction and deconditioning and possible functional quadriplegia. 2. Sepsis secondary to Escherichia coli urinary tract infection with history of rectovaginal, rectovesical fistula. 3. Escherichia coli urinary tract infection. 4. Acute renal failure. 5. Hypoxemia. 6. Normocytic anemia. 7. Leukocytosis with granulocytosis. 8. Status post acute renal failure. 9. Hypocalcemia. 10. Mild hypoalbuminemia. 11. History of dementia, Parkinson's disease, anxiety, and possible depression. 12. Prerenal kidney injury. 13. Non-proteinuric chronic kidney disease stage III. 14. History of anxiety. 15. History of dementia, history of depression, history of hypovitaminosis D. 1. Severe deconditioning and gait dysfunction and possible bedridden status and possible functional quadriplegia. 2. Sepsis secondary to a Escherichia coli urinary tract infection with history of vaginal and rectovesical fistula. 3. Deconditioning. 4. Escherichia coli urinary tract infection. 5. Acute renal failure. 6. History of hypertension. 7. Asymptomatic hypoxemia. 8. Kyphosis of the thoracic spine. 9. Hypoalbuminemia. 10. Hypocalcemia. 11. Normocytic anemia. 12. Hypokalemia. 13. Oropharyngeal dysphagia with impulsive and unsafe eating behaviors. 14. History of anxiety disorder. 15. History of dementia. 16. History of Parkinson disease. 17. History of normocytic iron deficiency anemia. 1. Severe gait dysfunction, deconditioning and bedridden status. 2. Questionable and possible functional quadriplegia. 3. Escherichia coli urinary tract infection. 4. Acute renal failure. 5. Systemic inflammatory response syndrome versus possible sepsis secondary to Escherichia coli urinary tract infection. 6. Colovesical and colovaginal fistula. 7. History of hypertension. 8. Asymptomatic hypoxemia. 9. Normocytic iron deficiency anemia. 10. Normal potassium. 11 Acute renal failure with mild prerenal kidney injury. 12. Non-proteinuric chronic kidney disease stage III/IV. 13. Hypocalcemia. 14. Hypoalbuminemia. 15. Malnutrition. 16. History of anxiety disorder. 17. History of dementia. 18. Iron deficiency normocytic anemia. 19. History of anxiety disorder. 20. Hypovitaminosis D. 21. Hyperuricemia. 22. Deconditioning. 1. Acute renal failure. 2. Systemic inflammatory response syndrome versus possible sepsis secondary to Escherichia coli urinary tract infection. 3. Colovesicular and colovaginal fistula. 4. Acute renal failure. 5. Poor compliance. 6. Severe gait deconditioning and severe gait dysfunction and bedridden status. 7. Functional quadriplegia. 8. Transient asymptomatic hypoxemia. 9. Leukocytosis with granulocytosis. 10. Normocytic iron deficiency anemia. 11. Transient hypernatremia. 12. Acute renal failure. 13. Hyperuricemia. 14. Transaminitis. 15. . 16. Hyperuricemia. 17. Iron deficiency normocytic anemia. 18. Escherichia coli urinary tract infection with proteinuria, hematuria, bacteriuria and pyuria. 19. Sepsis secondary to Escherichia coli urinary tract infection. 20. Mild aortic stenosis. 21. Moderate aortic regurgitation, moderate mitral regurgitation and mild tricuspid regurgitation. 22. History of anxiety disorder, history of dementia, history of hypovitaminosis D and hyperuricemia. 1. Acute renal failure. 2. Questionable sepsis with leukocytosis, granulocytosis. 3. Normocytic anemia. 4. Hypertension. 5. History of dementia. 6. Leukocytosis with granulocytosis. 7. Normocytic anemia. 8. Transient hypernatremia. 9. Acute kidney injury and acute renal failure (resolving). 10. Severe gait dysfunction, deconditioning and possible functional quadriplegia. 11. Hyperuricemia. 12. Transaminitis. 13. Hyperprocalcitoninemia. 14. Hypovitaminosis D. 15. Acute renal failure and acute kidney injury. 16. Escherichia coli urinary tract infection with hematuria, pyuria, bacteriuria. 17. Systemic inflammatory response syndrome with possible sepsis secondary to Escherichia coli urinary tract infection with ____vaginal and ____ fistula. 18. Prerenal azotemia. 19. Chronic kidney disease, stage, IIIB, nonproteinuric. 20. Severe deconditioning and gait dysfunction. 21. Chronic ____, ____ fistula with Escherichia coli urinary tract infection. 22. Moderate aortic and moderate mitral regurgitation. 23. Mild mitral valve prolapse, calcified aortic valve with mild aortic stenosis and moderate aortic regurgitation and moderate mitral regurgitation and mild tricuspid regurgitation with left ventricular ejection fraction of 55%. 24. Gait dysfunction. 25. Deconditioning 26. Anxiety disorder. 27. Dementia. 28. Hypovitaminosis D. 29. Hyperuricemia. 1. Acute renal failure. 2. Questionable sepsis with leukocytosis and granulocytosis. 3. Normocytic anemia. 4. Questionable hemorrhagic cystitis. 5. Questionable hemorrhagic cystitis with intrinsic mural and perivesicular abnormalities and dependent echogenic material debris in the bladder. 6. Left bundle-branch block and left axis deviation. 7. Left lower lung pleural thickening. 8. Cardiomegaly. 9. Sigmoid diverticulosis. 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 11. 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 12. Status post hysterectomy. 13. Sigmoid diverticulosis. 14. Leukocytosis with granulocytosis. 15. Normocytic anemia. 16. Hyponatremia. 17. Slow-resolving acute renal failure. 18. Hyperuricemia. 19. History of dementia. 20. Deconditioning. 21. Gait dysfunction. 22. Recurrent fall. 23. Questionable functional quadriplegia. 24. Hypovitaminosis D. 25. History of dyslipidemia. 26. History of angina, history of hypertension, history of dementia. 1. Altered mental status, etiology undetermined. 2. Acute renal failure and acute kidney injury and prerenal kidney injury. 3. Questionable and possible urinary tract infection. 4. Recurrent fall and gait dysfunction. 5. History of dementia. 6. Questionable swallowing and feeding dysfunction. 7. Leukocytosis with granulocytosis. 8. Normocytic anemia. 9. Hyperuricemia. 10. Hyperphosphatemia. 11. Transaminitis. 12. Elevated BNP with history of congestive heart failure. 13. Hematuria, pyuria, bacteriuria. 14. Left bundle branch block and left axis deviation. 15. Generalized osteopenia and thoracolumbar spondylosis with old healed left rib fracture. 16. Status post mastectomy for left breast carcinoma. 17. Gait dysfunction. 18. Recurrent falls. 19. 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 20. Questionable cystitis with thickened urinary bladder wall. 21. Questionable echogenic urinary bladder mass. 22. History of dementia. 23. History of hypovitaminosis D, history of anxiety, history of dementia, history of congestive heart failure, history of angina, history of dementia. 24. History of colovesicular and colovaginal fistula. 1. questionable atrial fibrillation with rapid ventricular response. 2. Left anterior hemiblock. 3. Hypertensive cardiovascular disease. 4. Questionable lateral ischemic changes. PLAN: At this time, patient is to be continued on telemetry monitoring. The patient has been ordered serial labs. The patient's blood and urine cultures are pending. CURRENT CONSULTATIONS: Infectious disease, urology, surgery, nephrology, cardiology. CURRENT MEDICATIONS: 1. Ativan 0.5 mg twice a day. 2. Cardizem 30 mg 3 times a day ordered by cardiology. 3. Coreg 12.5 twice a day. 4. Exelon capsule 4.5 mg twice a day. 5. Flagyl 500 p.o. q. 8. 6. The patient's heparin drip has been discontinued. 7. Selenium 200 mcg daily. 8. Imdur 30 mg daily. 9. Klonopin 4 mg at bedtime. 10. Protonix 40 mg daily. 11. Requip 8 mg daily. 12. The patient was given IV fluid bolus 1 liter yesterday for hypotension. 13. The patient is on 0.9 normal saline at 80 mL an hour. 14. The patient was given Tenormin 12.5 by cardiology. 15. Vitamin D3 2000 units daily. 16. The patient is on Zosyn 3.375 g IV q. 6. Repeat EKG ordered. The patient is presently on n.p.o. diet by surgery for possible anticipation for surgical intervention. It appears that the patient's family has consented and agreed for colostomy, but patient's PT/INR needs to be controlled either by FFP or IV vitamin K depending upon the preference of the surgeons. The patient has been ordered out of bed, ADRIANO stockings, SCDs, occupational therapy, physical therapy. The patient seen by all specialties. The patient's overall prognosis is guarded to poor, which has been explained and discussed with the patient and the patient's son and the patient's spouse on multiple occasions and all questions and concerns answered to their satisfaction. Dictated and electronically signed, not read. Rigo Vargas MD cc: [id number] TT: 11/14/2016 11:37:15 Confirmation # [id number] Dictation # [id number] en MTDD
[2016-11-14 11:39] LABS: INR 1.13 (0.93-1.08)
--- NOTE | 2016-11-14 12:50 | CARD ---
APPROVED REPORT EKG Measurement Heart [id number] <Conclusion> Sinus bradycardia Left axis deviation Left bundle branch block Abnormal ECG
--- NOTE | 2016-11-14 12:55 | PN ---
DATE: 11/14/2016 The patient is in room 363, bed 1. REASON FOR CONSULTATION AND FOLLOWUP: Preop evaluation, atrial fibrillation, aortic stenosis, mitral regurg. HISTORY OF PRESENT ILLNESS: The patient is an 81-year-old female who was admitted with colovesical a nd colovaginal fistula and sepsis, then she admitted atrial fibrillation, which medication had conver jeronimo back to sinus rhythm. The patient is lying flat in bed without any chest pain, shortness of johanny th, or palpitation. The patient is known to have hypertension, hyperlipidemia, mild aortic stenosis, moderate aortic regurgitation, moderate mitral regurgitation, mild tricuspid regurg. LV ejection fr action on last echo was 55%.; echo was done on 10/23/2016. PHYSICAL EXAMINATION: VITAL SIGNS: Blood pressure 113/52, respirations 22, pulse 59, temperature 97.6. HEAD: Normocephalic. EYES: Pupils normal. Conjunctivae slightly pale. NECK: JVP low. Carotid equal. THORAX: AP diameter normal. LUNGS: Clear. CARDIOVASCULAR: S1, S2. Systolic murmur. No rub. ABDOMEN: As mentioned. No organomegaly. Bowel sounds normal. EXTREMITIES: No clubbing, no cyanosis. LABORATORY DATA: WBC 9.6, hemoglobin 10.5, hematocrit 33.4, platelets 355. Sodium 146, potassium 3. 9, BUN 47, creatinine 1.6, magnesium 2.0. Bilirubin, AST, ALT normal. Total protein 6.2, albumin 2. 6. DIAGNOSES: Colovesical and colovaginal fistula, left bundle branch block on electrocardiogram, new o nset atrial fibrillation which had converted to sinus rhythm with medication, mild aortic stenosis, m oderate aortic regurgitation, moderate mitral regurgitation, mild tricuspid regurgitation, preserved left ventricular function with ejection fraction 55%, hypertension, renal dysfunction, anemia. PLAN: The patient converted to sinus rhythm so we stopped the heparin drip already. The patient and family agreed for colostomy. The patient is on Cardizem 30 mg p.o. t.i.d. Carvedilol has been on h old. Isosorbide mono 30 mg p.o. daily. The patient is getting sodium/normal sterile saline 80 mL an hour. The patient is going for colostomy surgery. The patient is high risk, but there is no absolu te contraindication and there is no choice; the patient is getting sepsis due to fecal contamination of the bladder and urinary tract infection. Family understands that. The patient also understand th at. Will continue to follow with you. Bishop Peoples MD cc: [id number] TT: 11/14/2016 12:54:44 Confirmation # [id number] Dictation # [id number] mn
[2016-11-14] MEDS ORDERED: Propofol 10 mg/ml Inj (20 ML) ONE (13:25)
[2016-11-14] MEDS ORDERED: Lidocaine 2% Inj (20ml) ONE (13:30)
[2016-11-14] MEDS ORDERED: Sevoflurane - Inhalation Anesthetic Liq (250 ml) ONE (13:33)
[2016-11-14] MEDS ORDERED: Succinylcholine 200 mg/10 ml Inj IV ONE (13:35)
[2016-11-14] MEDS ORDERED: Rocuronium 10 mg/ml (5 ml) ONE (13:35)
[2016-11-14] MEDS ORDERED: Bupivacaine 0.5% Inj(30mL) ONE (13:55)
[2016-11-14] MEDS ORDERED: Etomidate 20 mg/10ml Inj IV ONE (14:10)
[2016-11-14] MEDS ORDERED: Lidocaine 1% Inj (20ml) ONE (14:27)
[2016-11-14] MEDS ORDERED: Midazolam 2 MG/2 ML VIAL ONE (14:30)
[2016-11-14] MEDS ORDERED: Liquid Adhesive TOP ONE (14:32)
[2016-11-14] MEDS ORDERED: Oxychlorosene Topical 2 gm Packet TOP ONE (14:45)
[2016-11-14] MEDS ORDERED: HYDROmorphone 0.5 mg/0.5 ml ISec IVP PRN (15:19)
[2016-11-14] MEDS ORDERED: Heparin25000 units/250ml 1/2NS 250 ML IV PRN (15:46)
--- NOTE | 2016-11-14 16:06 | PCM.SURG1 ---
Surgeon's Initial Post Op Note - Surgeon's Notes Surgeon: Juni Sand Molder: Alexandre PGY2, Fish PGY1 Type of Anesthesia: IV Sedation, Local Pre-Operative Diagnosis: rectal vesiculo fistula, rectal vaginal fistula Operative Findings: normal proximal colon Post-Operative Diagnosis: same Operation Performed: loop colostomy Specimen/Specimens Removed: none Estimated Blood Loss: EBL {In ML}: 5 Blood Products Given: N/A Drains Used: No Drains Post-Op Condition: Good Date of Surgery/Procedure: 11/14/16 Time of Surgery/Procedure: 16:06
[2016-11-14] MEDS: SELENIUM 200 MCG PO SCH (17:49)
[2016-11-14] MEDS: Sodium Chloride 0.45% 1,000 ML IV SCH (19:10)
[2016-11-14 19:34] LABS: ADD MANUAL DIFF? NO
[2016-11-14 19:37] LABS: BASO # 0.01 K/mm3 (0.0-2.0); BASO % 0.1 % (0.0-3.0); EOS % 0.3 % (1.5-5.0); GRAN # 9.43 (1.4-6.5); GRAN % 78.9 % (50.0-68.0); HEMATOCRIT 38.6 % (36.0-48.0); LYMPH # 1.7 (1.2-3.4); LYMPH % 13.8 % (22.0-35.0); MEAN CELL VOLUME 98.5 fL (80.0-105.0); MEAN CORPUSCULAR HEMOGLOBIN 31.4 pg (25.0-35.0); MEAN CORPUSCULAR HGB CONC 31.9 g/dl (31.0-37.0); MEAN PLATELET VOLUME 9.8 fl (7.0-11.0); MONO # 0.8 (0.1-0.6); MONO % 6.9 % (1.0-6.0); PLATELET COUNT 445 10^3/uL (120.0-450.0); RED CELL DISTRIBUTION WIDTH 19.2 % (11.5-14.5)
--- NOTE | 2016-11-14 19:39 | PN ---
DATE: 11/14/2016 The patient is an 81-year-old female with history of hypertension, congestive heart failure, CKD and known rectovesical/rectovaginal fistulas admitted with UTI, sepsis secondary to rectovesical fistula. The patient seen this morning before going for colostomy procedure, was feeling well at the time. Denies any shortness of breath. No abdominal pain. VITAL SIGNS: This morning, blood pressure 113/52, heart rate 59, respirations 22, temperature 97.6, O2 sat 97% on room air. LABORATORY DATA: This morning, CBC: WBC 9.6, hemoglobin 10.5, hematocrit 33.4, platelets 355. Chem istry: Sodium 146, potassium 3.9, chloride 115, bicarbonate 21, BUN 47, creatinine 1.6, calcium 7.3, albumin 2.6. ASSESSMENT: 1. Systemic inflammatory response syndrome/sepsis, leukocytosis resolved with patient on broad-spect rum antibiotics in the setting rectovesical fistula and with overt stool in Ramirez bag. Should consid ered decreasing Zosyn dose to 2.25 grams q. 6 hours in the setting of renal insufficiency. 2. Acute renal failure, acute kidney injury on chronic kidney disease secondary to bladder obstructi on due to overt stool from rectovesical fistula. Renal function is relatively stable over the last 3 days and patient with free flow swelling urine in Ramirez bag. Currently on continuous bladder irriga tion, would continue the same as Ramirez may still get obstructed with stool despite colostomy until re maining stool is passed. 3. Rectovesical fistula. The patient finally underwent definitive surgical procedure to prevent fur ther seepage of stool into urinary tract. Should continue antibiotics for now as residual stool may still seep into bladder. 4. Congestive heart failure. The patient with bilateral pleural effusions on CT, also with new onse t of atrial fibrillation which has since converted to sinus rhythm. Respiratory status is currently stable, so would hold off on starting diuretics for at least the next 1-2 days. 5. Hypertension. Fluctuating blood pressure readings. Started on Cardizem yesterday for rate contr ol, would continue to hold Coreg and Imdur until clinically stable. 6. Hypernatremia, mild. Has approximately 1 liter free water deficit, will change IV fluids to half normal saline at 100 mL per hour. Wally Ash MD cc: [id number] TT: 11/14/2016 19:38:11 Confirmation # [id number] Dictation # [id number] jn
[2016-11-14 19:46] LABS: ALB/GLOB RATIO 0.8 (1.1-1.8); BILIRUBIN,DIRECT 0.5 mg/dL (0.0-0.4); BILIRUBIN,TOTAL 0.5 mg/dL (0.2-1.3); CALCIUM 7.5 mg/dL (8.4-10.5); MAGNESIUM 1.9 mg/dL (1.7-2.2); POTASSIUM 3.8 mmol/L (3.6-5.0); TOTAL PROTEIN 7.4 g/dL (5.8-8.3)
[2016-11-15] MEDS: Piperacillin/Tazobact 3.375 gm 100 ML IVPB SCH ×4 (00:20→18:20)
[2016-11-15] MEDS: HYDROmorphone 0.5 mg/0.5 ml ISec IVP PRN ×3 (00:20→09:38)
--- NOTE | 2016-11-15 01:10 | CP.PCM.PN ---
Subjective - Date & Time of Evaluation Date of Evaluation: 11/15/16 Time of Evaluation: 01:04 - Subjective Subjective: Shouting. Confused. Had colostomy by . VSS. Puse ox 98 % RA. 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 Has PMH of CHF, Parkinson's disease , breast cancer, SIRS, leukocytosis, normocytic anemia, MARCIANO,Hypertensive cardiovascular disease, left anterior hemiblock, ?atrial fibrillation,UTI, rectovesical/vaginal fistula, Objective - Vital Signs/Intake and Output Vital Signs (last 24 hours): Temp Pulse Resp BP Pulse Ox 97.5 F L 60 16 110/54 L 97 11/14/16 16:30 11/14/16 17:47 11/14/16 16:30 11/14/16 17:47 11/14/16 16:30 Intake and Output: 11/14/16 11/15/16 18:59 06:59 Intake Total 360 540 Output Total 6850 6000 Balance -5172 -1366 - Medications Medications: Current Medications Carvedilol (Coreg) 12.5 mg PO 0800,1800 [facility] Last Admin: 11/14/16 17:47 Dose: Not Given Cholecalciferol (Vitamin D) 2,000 iu PO DAILY [facility] Last Admin: 11/14/16 17:49 Dose: Not Given Clonazepam (Klonopin) 4 mg PO HS [facility] PRN Reason: Protocol Last Admin: 11/14/16 22:25 Dose: 4 mg Diltiazem HCl (Cardizem) 30 mg PO TID [facility] Last Admin: 11/14/16 17:46 Dose: Not Given Home Med (Home Med) 1 unit PO DAILY [facility] Last Admin: 11/14/16 17:49 Dose: Not Given Hydromorphone HCl (Dilaudid) 0.5 mg IVP Q4H PRN PRN Reason: Pain, moderate (4-7) Last Admin: 11/15/16 00:20 Dose: 0.5 mg Piperacillin Sod/Tazobactam Sod (Zosyn 3.375 In Ns 100ml) 100 mls @ 200 mls/hr IVPB Q6 [facility] PRN Reason: Protocol Stop: 11/20/16 07:16 Last Admin: 11/15/16 00:20 Dose: 200 mls/hr Sodium Chloride (Sodium Chloride 0.45%) 1,000 mls @ 100 mls/hr IV .Q10H [facility] Last Admin: 11/14/16 19:10 Dose: 100 mls/hr Isosorbide Mononitrate (Imdur) 30 mg PO 0600 [facility] Last Admin: 11/13/16 05:33 Dose: 30 mg Lorazepam (Ativan) 0.5 mg PO BID [facility] PRN Reason: Protocol Last Admin: 11/13/16 17:38 Dose: Not Given Metronidazole (Flagyl) 500 mg PO Q8 [facility] PRN Reason: Protocol Last Admin: 11/14/16 22:24 Dose: 500 mg Pantoprazole Sodium (Protonix Ec Tab) 40 mg PO 0630 [facility] Last Admin: 11/14/16 05:30 Dose: 40 mg Rivastigmine (Exelon Cap) 4.5 mg PO 0800,1800 [facility] Last Admin: 11/14/16 17:54 Dose: 4.5 mg Ropinirole HCl (Requip) 8 mg PO 0800 [facility] Last Admin: 11/14/16 17:49 Dose: Not Given - Labs Labs: 11/14/16 19:25 11/14/16 19:25 PT 12.2 Seconds (9.9-11.8) H 11/14/16 11:15 INR 1.13 (0.93-1.08) H 11/14/16 11:15 APTT > 180.0 Seconds (23.7-30.8) H* 11/14/16 08:20 - Constitutional Appears: Well, No Acute Distress - Head Exam Head Exam: ATRAUMATIC, NORMAL INSPECTION, NORMOCEPHALIC - Eye Exam Eye Exam: Normal appearance - ENT Exam ENT Exam: Normal External Ear Exam - Neck Exam Neck Exam: Normal Inspection - Respiratory Exam Respiratory Exam: NORMAL BREATHING PATTERN - Cardiovascular Exam Cardiovascular Exam: absent: JVD - GI/Abdominal Exam GI & Abdominal Exam: absent: Distended - Rectal Exam Rectal Exam: Deferred - Extremities Exam Extremities Exam: Normal Inspection - Back Exam Back Exam: NORMAL INSPECTION - Neurological Exam Neurological Exam: Altered (agitated.) - Psychiatric Exam Psychiatric exam: Agitated - Skin Skin Exam: Normal Color Assessment and Plan - Assessment and Plan (Free Text) Assessment: A/P: Agitation. Dementia. CHF. Breast cancer. Ativan 0.25 mg PO x 1. Continue present management.
[2016-11-15] MEDS: Sodium Chloride 0.45% 1,000 ML IV SCH (05:00)
[2016-11-15] MEDS: Pantoprazole 40 mg EC Tab PO SCH (06:21)
[2016-11-15 07:00] LABS: ADD MANUAL DIFF? NO
[2016-11-15 07:08] LABS: BASO # 0.01 K/mm3 (0.0-2.0); BASO % 0.1 % (0.0-3.0); EOS % 0.4 % (1.5-5.0); GRAN # 7.75 (1.4-6.5); LYMPH # 1.9 (1.2-3.4); MEAN CELL VOLUME 97.9 fL (80.0-105.0); MEAN CORPUSCULAR HGB CONC 31.6 g/dl (31.0-37.0); MEAN PLATELET VOLUME 9.8 fl (7.0-11.0); MONO # 0.8 (0.1-0.6); MONO % 7.5 % (1.0-6.0); PLATELET COUNT 503 10^3/uL (120.0-450.0); RED CELL DISTRIBUTION WIDTH 19.3 % (11.5-14.5); WHITE BLOOD COUNT 10.5 10^3/ul (4.5-11.0)
[2016-11-15 07:13] LABS: ALB/GLOB RATIO 0.8 (1.1-1.8); BILIRUBIN,DIRECT 0.5 mg/dL (0.0-0.4); BILIRUBIN,TOTAL 0.6 mg/dL (0.2-1.3); CALCIUM 7.7 mg/dL (8.4-10.5); POTASSIUM 3.7 mmol/L (3.6-5.0); TOTAL PROTEIN 7.2 g/dL (5.8-8.3)
[2016-11-15 07:14] LABS: INR 1.18 (0.93-1.08); PARTIAL THROMBOPLASTIN TIME 27.8 Seconds (23.7-30.8)
--- NOTE | 2016-11-15 08:21 | CON ---
DATE: 11/12/2016 The patient is currently in the transitional care unit at [facility]. I received a phone call from Dr. Darren Alfredo on 11/11/2016 regarding this consultation. The franklyn ent is under the care of Dr. Rigo Vargas. She has a very significant history. She has a fistula th at is bowel in origin that is through the vagina and also through the bladder. She has a vesicovagin al fistula. This has been known for 15 years or so or more. Apparently where she originally was brando d that she has this history is from both the patient, the sons and from Dr. Alfredo that she was at risk for surgical intervention. So she has been stable from a urology standpoint. Until most recently, where she has had trouble and had a Ramirez catheter placed. With a greatly distended abdomen, urinary retention. The catheter then stopped working, which is the reason for the urology consultation secondary most li glenna to stool. But the abdomen is grossly distended. Urology is consulted for further recommendations. See the plan listed below. PAST MEDICAL AND SURGICAL HISTORY: As listed on the chart. A patient of Dr. Rigo Vargas. She is c urrently on the transitional care. But is likely to be transferred over to the floor. MEDICATIONS: See chart. PHYSICAL EXAMINATION: GENERAL: Well-nourished female in no apparent distress. She is currently resting in her bed. Two sons are at the bedside. (on a coincidental note). Labs are listed on the chart. DIAGNOSES: Acute urinary retention. A vesicovaginal fistula. The plans really will depend on Dr. Alfredo and the patient and the family in terms of options avail able. Again, she is an 81-year-old lady. There are a lot of different possibilities. From a urolog y standpoint, we were asked regarding the possibility for a cystostomy tube, which does exist, We co uld try even at the bedside, but the limits of the size of the catheter would be about a [id number] . But that is the minimal risk. of 10 with an open operation, the possibility for maybe divertin g the stool way with a colostomy still exist. This is being discussed by the patient, the family and the other consulting doctors. From a urology standpoint another possibility, although it might be s omewhat difficult, would be for nephrostomy tube. What this would do is divert the urine potentially The issue for diversion of the urine would be the fact that she is not really obstructed per se. The other is the technical complication or difficulty with inserting nephrostomy tubes in an unobstru cted non-hydronephrotic kidney. So at this point, the urology plan as follows: Observation. If the catheter stops working, insert a new Ramirez catheter. She currently has a 3-way 24-Bulgarian. We will see how she does clinically and then we will make further recommendations. We will follow enzo hauser. Thank you for the urology consultation. Salo Acosta MD cc: [phone] TT: 11/15/2016 08:20:54 Confirmation # [id number] Dictation # [id number] satya
[2016-11-15] MEDS: Dextrose 5%/0.45% NS 1,000 ML IV SCH (08:26)
--- NOTE | 2016-11-15 08:34 | CP.PCM.PCO ---
Physician Communication Note - Physician Communication Note Physician Communication Note: Colostomy Diversion/Fistula remains(family refused added surgery)
[2016-11-15] MEDS: SELENIUM 200 MCG PO SCH (09:39)
--- NOTE | 2016-11-15 13:19 | CP.PCM.PN ---
Subjective - Date & Time of Evaluation Date of Evaluation: 11/15/16 Time of Evaluation: 11:35 - Subjective Subjective: Patient is comfortable in bed, not in distress, has a little more energy today more than usual. No fevers overnight. She had loop colostomy done yesterday and tolerated the procedure well. Discussed this with the family. Objective - Vital Signs/Intake and Output Vital Signs (last 24 hours): Temp Pulse Resp BP Pulse Ox 98.5 F 81 20 117/57 L 97 11/15/16 07:42 11/15/16 07:42 11/15/16 07:42 11/15/16 09:35 11/15/16 07:42 Intake and Output: 11/15/16 11/15/16 06:59 18:59 Intake Total 540 60 Output Total 6000 Balance -5460 60 - Medications Medications: Current Medications Carvedilol (Coreg) 12.5 mg PO 0800,1800 [facility] Last Admin: 11/14/16 17:47 Dose: Not Given Cholecalciferol (Vitamin D) 2,000 iu PO DAILY [facility] Last Admin: 11/15/16 09:35 Dose: 2,000 iu Clonazepam (Klonopin) 4 mg PO HS [facility] PRN Reason: Protocol Last Admin: 11/14/16 22:25 Dose: 4 mg Diltiazem HCl (Cardizem) 30 mg PO TID [facility] Last Admin: 11/15/16 09:35 Dose: 30 mg Heparin Sodium (Porcine) (Heparin) 5,000 units SC Q12 [facility] PRN Reason: Protocol Home Med (Home Med) 1 unit PO DAILY [facility] Last Admin: 11/15/16 09:39 Dose: 1 unit Hydromorphone HCl (Dilaudid) 0.5 mg IVP Q4H PRN PRN Reason: Pain, moderate (4-7) Last Admin: 11/15/16 09:38 Dose: 0.5 mg Piperacillin Sod/Tazobactam Sod (Zosyn 3.375 In Ns 100ml) 100 mls @ 200 mls/hr IVPB Q6 [facility] PRN Reason: Protocol Stop: 11/20/16 07:16 Last Admin: 11/15/16 06:22 Dose: 200 mls/hr Dextrose/Sodium Chloride (Dextrose 5%/0.45% Ns 1000 Ml) 1,000 mls @ 80 mls/hr IV .[id number] [facility] Last Admin: 11/15/16 08:26 Dose: 80 mls/hr Isosorbide Mononitrate (Imdur) 30 mg PO 0600 [facility] Last Admin: 11/13/16 05:33 Dose: 30 mg Lorazepam (Ativan) 0.5 mg PO BID [facility] PRN Reason: Protocol Last Admin: 11/15/16 09:35 Dose: 0.5 mg Metronidazole (Flagyl) 500 mg PO Q8 [facility] PRN Reason: Protocol Last Admin: 11/15/16 06:20 Dose: 500 mg Pantoprazole Sodium (Protonix Ec Tab) 40 mg PO 0630 [facility] Last Admin: 11/15/16 06:21 Dose: 40 mg Rivastigmine (Exelon Cap) 4.5 mg PO 0800,1800 [facility] Last Admin: 11/15/16 08:13 Dose: 4.5 mg Ropinirole HCl (Requip) 8 mg PO 0800 [facility] Last Admin: 11/15/16 08:12 Dose: 8 mg - Labs Labs: 11/15/16 06:59 11/15/16 06:59 PT 12.7 Seconds (9.9-11.8) H 11/15/16 06:59 INR 1.18 (0.93-1.08) H 11/15/16 06:59 APTT 27.8 Seconds (23.7-30.8) 11/15/16 06:59 - Constitutional Appears: Non-toxic, No Acute Distress - Head Exam Head Exam: NORMAL INSPECTION - ENT Exam ENT Exam: Mucous Membranes Moist - Neck Exam Neck Exam: absent: Lymphadenopathy, Meningismus - Respiratory Exam Respiratory Exam: Decreased Breath Sounds - Cardiovascular Exam Cardiovascular Exam: +S1, +S2 - GI/Abdominal Exam GI & Abdominal Exam: Soft. absent: Tenderness Additional comments: colostomy in place Assessment and Plan - Assessment and Plan (Free Text) Plan: Assessment sepsis secondary to rectovesical fistula with inadequate drainage of urine and stool S/P loop colostomy POD #1 chronic renal failure chronic CHF Parkinson's disease history of breast cancer history of rectovesical and rectovaginal fistula Plan on Zosyn (day 3, day 2 from surgery) Discussed with family - will keep Zosyn for at least 2 more days and observe the patient clinically
--- NOTE | 2016-11-15 14:51 | OP ---
PROCEDURE DATE: 11/14/2016 LOCATION: Room is 363, bed 1. SURGEON: Darren Alfredo MD CUSTOMS AND IMMIGRATION OFFICER: Kennedy Schroeder DO, PGY-2. SECOND CUSTOMS AND IMMIGRATION OFFICER: Everotn Whitten DO, PGY-1. CREASING AND CUTTING PRESS FEEDER: Dr. Weber. ANESTHESIA: MAC -- local (bupivacaine 0.5/25 mL) by surgeon. PREOPERATIVE DIAGNOSES: 1. Sepsis, urinary tract, colovesical fistula 2. Altered mental status. 3. Atrial fibrillation. 4. Hypertensive coronary artery disease. POSTOPERATIVE DIAGNOSES: 1. Sepsis, urinary tract, colovesical fistula 2. Altered mental status. 3. Atrial fibrillation. 4. Hypertensive coronary artery disease. 5. Profound labile hypotension bradycardia. PROCEDURE: Loop colostomy under local anesthesia. OPERATIVE INDICATION: The patient is an 81-year-old female who has been cared for by her h usband and son at home for the past 16 years. She has become predominantly bedbound but was ambulato ry prior to this admission. She has had a known rectovaginal fistula for 16 years, but the family wa s unwilling to undergo any surgical correction 16 years ago and they were told her heart was not in g ood condition. She has been followed all this time by Dr. Kennedy Peoples from cardiology and he has reeva luated the patient most recently and found that her ejection fraction had improved to 55%-60% and the patient is in much better condition than she had been in the past. The most recent admission to the hospital and into the transitional care unit for deconditioning was for a new fistula that had apparently eroded into the bladder and caused repeated urinary tract infec tions and repeated sepsis. The patient's cardiac status has remained the same; however, she has paro xysmal atrial fibrillation and has been on anticoagulation all this time. Despite daily consultations and explanations over the past week, plus the family is extremely unwilli ng to undergo any operative interventions because of fear for the risk for the anesthesia and the pro cedure. Urology has been consulted to consider suprapubic catheterization, but was unwilling to plac e the catheter and interventional radiology was consulted to consider nephrostomy tubes and these wer e not needed at this time as a larger Ramirez catheter was able to decompress the massively distended b ladder and alleviate a significant amount of the sepsis involved. The patient has been slowly getting worse with elevated white count, worsening atrial fibrillation, i ncreased heart rate at the same time and the known urinary tract infection despite very large amounts of antibiotics provided parenterally. Up until the morning of this procedure, the family has been d enying and refusing any surgical intervention, but by repeated entreaties by the surgical team, they finally agreed to surgery at this point. They will not allow repair of the fistula. They will only allow for diversion of a fecal stream and it has been described to the family there will be a very mi nor operation just elevating the colon out into the incision and placing a bridge/delmy under the bowel . OPERATIVE NOTE: The patient is brought to the operating room from the same day holding area. She is identified by a wrist band, undergoes timeout procedure, and placed on the operative table in a supi ne position. The anesthesiologist initiated the induction of anesthesia with a small dose of fentanyl parenterally and the patient's blood pressure and pulse dropped remarkably to 15 beats per minute and he stopped all measures at anesthesia and passed the case to the operating surgeon, asking him if he is willing to do it under local anesthesia. The surgeon agreed to that and the patient's abdomen was prepped wi th Hibiclens, chlorhexidine preparation and the patient is aseptically draped. The skin is marked ov er the right mid abdomen and infiltrated cautiously in layers from the skin down utilizing the long-a cting bupivacaine diluted with 1% lidocaine. Following good anesthetic take, the skin is incised wit h the cautery scalpel and hemostasis is contained with electrocoagulating current. The skin is elevated and dissection is carried on down through the subcutaneous tissues down to the e xternal oblique aponeurosis which is now infiltrated as are all the layers are down to the peritoneum and incision made along the direction of the fibers through the internal oblique and transversus abd ominis to the peritoneum. The peritoneum is likewise infiltrated with long-acting anesthetic and the incision made with the scalpel using electrocoagulating current. The colon is identified immediately below the peritoneum, is gently grasped with a Nataly clamp, constance vated and held in place by the surgeon's index finger and thumb and a Carina clamp was able to be pass ed through the mesentery and elevate the colon gently on a 7/16 Maria Fernanda tape. The abdominal wall is secured more firmly with several sutures of #1 Prolene suture [id number] t ype to prevent parastomal herniation. The Maria Fernanda tape is replaced with a Juan bridge and the c olon is incised and the incision extended along the direction of the tenia with cautery coagulating c urrent. At this point, the anterior colonic wall is secured in a running 3-0 Polysorb suture circumf erentially around the entire incision and the colostomy wafer is placed on the abdominal wall after u tilizing Mastisol adhesive and elevating the bridge onto the stoma wafer. The accordion connector chicas s been applied to the wafer and allows the placement of the stoma bag on top of same. Prior to closu re of the wafer and bag, the proximal end of the stoma is invaginated with the dusting and brushing machine operator's finger demo nstrating a snug fit and free flow of gas and stool from the proximal colon. The patient is now connor sported to the recovery room in a satisfactory condition. Sponge, instrument and suture count were v erified as correct at the end of the procedure. Estimated blood loss during the procedure was almost nil. This patient's vital signs remained stable throughout, but did not have any general anesthetic, only the local provided by the operating team. The surgical assistants were present throughout the entire procedure and were extremely helpful in pr oviding exposure and elevating the portions of bowel without any traction so the patient did not have any discomfort. During this procedure, the patient was fully awake and completely communicative wit h the operating team and remained comfortable throughout the entire procedure. This dictation will be electronically signed without being read. Darren Alfredo MD cc: [id number] TT: 11/15/2016 14:50:42 angela
--- NOTE | 2016-11-15 17:25 | PN ---
DATE: 11/15/2016 SUBJECTIVE: The patient is seen lying in the bed in room 363, bed 1. The patient's family is at bedside. According to the nurses, the patient's colostomy bag and Ramirez leaked, which was changed and fixed. The patient's family is complaining that the patient has not been out of bed to chair and the patient had no physical therapy done. I have explained to the patient's family that the orders for both had been ordered in the computer. Overnight nurse's notes were reviewed. PHYSICAL EXAMINATION: VITAL SIGNS: T-max 98.5. Heart rate 81, blood pressure 110/54, 116/43, respirations 20, O2 sat 97%. HEAD: Normocephalic, atraumatic. HEENT: Shows pinkish conjunctivae, anicteric sclerae. No oropharyngeal lesion. NECK: No neck rigidity. CHEST: Kyphosis. LUNGS: Shows questionable decreased breath sounds at the bases, left more than the right. CARDIOVASCULAR: Shows S1, S2, regular rhythm, positive systolic murmur left sternal border, left 2nd intercostal space. ABDOMEN: Soft. Positive bowel sounds, nondistended, positive right-sided colostomy. GENITALIA: Female. Positive Ramirez catheter draining completely clear urine. EXTREMITIES: Show positive SCDs. No pitting edema, no calf tenderness, no Homans' sign. NEUROLOGIC: The patient is alert, awake, responsive, follows commands. The patient does not appear to be in any distress. MUSCULOSKELETAL: Shows a body mass index of 22. NEUROLOGIC: The patient is alert, awake, responsive. VASCULAR: Palpable pulses. GAIT: Not tested as patient is lying in the bed. DIAGNOSTICS: On 11/15/2016, WBC 10.5, hemoglobin and hematocrit 11.7 and 37.0, platelet 503. PT/PTT are 12.7/27.8, INR 1.18. Sodium has gone up to 151, potassium 3.7, chloride 118, CO2 19, anion gap 18, BUN 41, creatinine down to 1.3 from 1.6, GFR 48, glucose 94, calcium 7.7, albumin is 3.1. LFTs are normal. Procalcitonin level 0.38. Blood cultures, no growth. The patient was typed and cross matched. The patient's EKG from today shows sinus rhythm, left bundle branch block, left axis deviation, PVCs. The patient's EKG from 11/14 was reviewed, sinus bradycardia, left axis hemiblock, left bundle branch block. The patient seen by surgery and infectious disease. IMPRESSION AND PLAN: 1. 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 2. Status post loop colostomy. 3. 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 4. Atrial fibrillation with rapid ventricular response. 5. Left anterior hemiblock. 6. Left bundle branch block. 7. Transient hypotension and bradycardia. 8. Hypernatremia. 9. Acute kidney injury with underlying chronic kidney disease stage III/IV. 10. Indeterminate troponin. 11. Leukocytosis with granulocytosis. 12. Transient coagulopathy. 13. Hyponatremia. 14. Prerenal kidney injury. 15. Severe gait dysfunction and deconditioning. 16. Status post colostomy diversion. 17. Paroxysmal atrial fibrillation converting to normal sinus rhythm with left axis deviation, left anterior hemiblock, left bundle branch block. 18. Urinary retention. 19. History of dementia, Parkinson disease. 20. Transient confusional state. 21. Transient agitation (resolved). 22. Deconditioning. 23. Gait dysfunction. 24. Status post loop colostomy, postop day 1. 25. Deconditioning. 26. Gait dysfunction. 27. Questionable possible functional quadriplegia. 28. History of anxiety. 29. History of dementia. 30. History of Parkinson disease. 31. History of hypovitaminosis D. 1. Sepsis with leukocytosis and granulocytosis. 2. New onset atrial fibrillation with rapid ventricular response and indeterminate troponin. 3. Moderate aortic regurgitation, mild aortic stenosis, moderate mitral regurgitation with left ventricular ejection fraction of 55%. 4. Left anterior hemiblock. 5. Questionable left bundle branch block. 6. Lateral wall ischemic changes on the EKG. 7. Severe deconditioning, gait dysfunction versus questionable and possible functional quadriplegia. 8. Sepsis, secondary to rectovesical and rectovaginal fistula and inadequate drainage of urine and stool. 9. Status post treatment for Escherichia coli urinary tract infection, secondary to rectovesical, rectovaginal fistula. 10. Acute kidney injury. 11. Transient hypotension. 12. History of hypertension. 13. Anemia. 14. Leukocytosis. 15. Normocytic iron deficiency anemia. 16. Mild coagulopathy, secondary to anticoagulation. 17. Hypokalemia. 18. Acute kidney injury with underlying chronic kidney disease stage IV. 19. Hypoalbuminemia. 20. Indeterminate troponin. 21. Hypotension with sepsis and new onset atrial fibrillation with rapid ventricular response. 22. History of Parkinson disease, dementia, history of anxiety, depression, history of hypovitaminosis D. 1. Recurrent urinary retention with urinary bladder distention. 2. Questionable systemic inflammatory response syndrome versus sepsis with low- grade fever of 105, tachycardia 3. Leukocytosis with granulocytosis. 4. Normocytic anemia. 5. Hypokalemia. 6. Acute kidney injury. 7. Mild hypoalbuminemia 8. Severe deconditioning, gait dysfunction and bedridden status with questionable functional quadriplegia. 9. History of dementia, depression, Parkinson's disease, history of hypertension. 10. Hypovitaminosis D. 11. Deconditioning. 1. Recurrent urinary retention with urinary bladder distention. 2. Severe deconditioning and gait dysfunction. 3. Functional quadriplegia with severe deconditioning and gait dysfunction and bedridden status. 4. Small bilateral pleural effusion and bibasilar atelectasis. 5. Questionable sigmoid colitis with mural thickening. 6. Urinary retention with distended urinary bladder with air fluid level. 7. Hypertension. 8. Tachycardia. 9. Leukocytosis with granulocytosis. 10. Questionable systemic inflammatory response syndrome. 11. Normocytic anemia. 12. Acute recurrent kidney injury. 13. 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 14. Normocytic iron deficiency anemia. 15. Chronic kidney disease stage II/III. 1. Severe deconditioning, severe gait dysfunction and possible questionable functional quadriplegia. 2. Urinary retention. 3. Colovesicular and colovaginal fistula. 4. Abdominal distention, probably secondary to urinary retention. 5. Sepsis secondary to Escherichia coli urinary tract infection and colovesicular and colovaginal fistula. 6. Hypertension. 7. Questionable ileus with constipation, fecal retention, fecal stasis. 8. Asymptomatic hypoxemia. 9. Status post acute renal failure. 10. Normocytic iron deficiency anemia. 11. Status post IV Venofer infusion. 12. Leukocytosis with granulocytosis. 13. Status post acute renal failure. 14. Hypocalcemia. 15. Mild hypoalbuminemia. 16. History of anxiety disorder, history of dementia, history of depression, history of Parkinson's disease, hypovitaminosis D. 1. Severe deconditioning and gait dysfunction. 2. Deconditioning. 3. Questionable constipation and fecal retention. 4. Asymptomatic hypoxemia. 5. Leukocytosis with granulocytosis. 6. Normocytic anemia. 7. Prerenal kidney injury. 8. Status post acute renal failure. 9. 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 10. Deconditioning. 11. Gait dysfunction. 12. Sepsis secondary to Escherichia coli urinary tract infection. 13. History of colovesicular colovaginal fistula. 14. Dementia. 15. History of Parkinson disease. 16. History of anxiety disorder. 17. History of constipation. 1. Severe deconditioning and gait dysfunction. 2. Possible functional quadriplegia. 3. Nonproteinuric chronic kidney disease stage III. 4. Acute renal failure, secondary to prerenal kidney injury (resolved). 5. Mild venous stasis of the lower extremities. 6. Sepsis with Escherichia coli urinary tract infection. 7. Rectovesical and rectovaginal fistula. 8. Deconditioning. 9. Gait dysfunction. 10. Normocytic anemia. 11. Normocytic iron deficiency anemia. 12. Leukocytosis with granulocytosis. 13. Hypocalcemia. 14. Hypokalemia. 1. Severe gait dysfunction and deconditioning and possible functional quadriplegia. 2. Sepsis secondary to Escherichia coli urinary tract infection with history of rectovaginal, rectovesical fistula. 3. Escherichia coli urinary tract infection. 4. Acute renal failure. 5. Hypoxemia. 6. Normocytic anemia. 7. Leukocytosis with granulocytosis. 8. Status post acute renal failure. 9. Hypocalcemia. 10. Mild hypoalbuminemia. 11. History of dementia, Parkinson's disease, anxiety, and possible depression. 12. Prerenal kidney injury. 13. Non-proteinuric chronic kidney disease stage III. 14. History of anxiety. 15. History of dementia, history of depression, history of hypovitaminosis D. 1. Severe deconditioning and gait dysfunction and possible bedridden status and possible functional quadriplegia. 2. Sepsis secondary to a Escherichia coli urinary tract infection with history of vaginal and rectovesical fistula. 3. Deconditioning. 4. Escherichia coli urinary tract infection. 5. Acute renal failure. 6. History of hypertension. 7. Asymptomatic hypoxemia. 8. Kyphosis of the thoracic spine. 9. Hypoalbuminemia. 10. Hypocalcemia. 11. Normocytic anemia. 12. Hypokalemia. 13. Oropharyngeal dysphagia with impulsive and unsafe eating behaviors. 14. History of anxiety disorder. 15. History of dementia. 16. History of Parkinson disease. 17. History of normocytic iron deficiency anemia. 1. Severe gait dysfunction, deconditioning and bedridden status. 2. Questionable and possible functional quadriplegia. 3. Escherichia coli urinary tract infection. 4. Acute renal failure. 5. Systemic inflammatory response syndrome versus possible sepsis secondary to Escherichia coli urinary tract infection. 6. Colovesical and colovaginal fistula. 7. History of hypertension. 8. Asymptomatic hypoxemia. 9. Normocytic iron deficiency anemia. 10. Normal potassium. 11 Acute renal failure with mild prerenal kidney injury. 12. Non-proteinuric chronic kidney disease stage III/IV. 13. Hypocalcemia. 14. Hypoalbuminemia. 15. Malnutrition. 16. History of anxiety disorder. 17. History of dementia. 18. Iron deficiency normocytic anemia. 19. History of anxiety disorder. 20. Hypovitaminosis D. 21. Hyperuricemia. 22. Deconditioning. 1. Acute renal failure. 2. Systemic inflammatory response syndrome versus possible sepsis secondary to Escherichia coli urinary tract infection. 3. Colovesicular and colovaginal fistula. 4. Acute renal failure. 5. Poor compliance. 6. Severe gait deconditioning and severe gait dysfunction and bedridden status. 7. Functional quadriplegia. 8. Transient asymptomatic hypoxemia. 9. Leukocytosis with granulocytosis. 10. Normocytic iron deficiency anemia. 11. Transient hypernatremia. 12. Acute renal failure. 13. Hyperuricemia. 14. Transaminitis. 15. . 16. Hyperuricemia. 17. Iron deficiency normocytic anemia. 18. Escherichia coli urinary tract infection with proteinuria, hematuria, bacteriuria and pyuria. 19. Sepsis secondary to Escherichia coli urinary tract infection. 20. Mild aortic stenosis. 21. Moderate aortic regurgitation, moderate mitral regurgitation and mild tricuspid regurgitation. 22. History of anxiety disorder, history of dementia, history of hypovitaminosis D and hyperuricemia. 1. Acute renal failure. 2. Questionable sepsis with leukocytosis, granulocytosis. 3. Normocytic anemia. 4. Hypertension. 5. History of dementia. 6. Leukocytosis with granulocytosis. 7. Normocytic anemia. 8. Transient hypernatremia. 9. Acute kidney injury and acute renal failure (resolving). 10. Severe gait dysfunction, deconditioning and possible functional quadriplegia. 11. Hyperuricemia. 12. Transaminitis. 13. Hyperprocalcitoninemia. 14. Hypovitaminosis D. 15. Acute renal failure and acute kidney injury. 16. Escherichia coli urinary tract infection with hematuria, pyuria, bacteriuria. 17. Systemic inflammatory response syndrome with possible sepsis secondary to Escherichia coli urinary tract infection with ____vaginal and ____ fistula. 18. Prerenal azotemia. 19. Chronic kidney disease, stage, IIIB, nonproteinuric. 20. Severe deconditioning and gait dysfunction. 21. Chronic ____, ____ fistula with Escherichia coli urinary tract infection. 22. Moderate aortic and moderate mitral regurgitation. 23. Mild mitral valve prolapse, calcified aortic valve with mild aortic stenosis and moderate aortic regurgitation and moderate mitral regurgitation and mild tricuspid regurgitation with left ventricular ejection fraction of 55%. 24. Gait dysfunction. 25. Deconditioning 26. Anxiety disorder. 27. Dementia. 28. Hypovitaminosis D. 29. Hyperuricemia. 1. Acute renal failure. 2. Questionable sepsis with leukocytosis and granulocytosis. 3. Normocytic anemia. 4. Questionable hemorrhagic cystitis. 5. Questionable hemorrhagic cystitis with intrinsic mural and perivesicular abnormalities and dependent echogenic material debris in the bladder. 6. Left bundle-branch block and left axis deviation. 7. Left lower lung pleural thickening. 8. Cardiomegaly. 9. Sigmoid diverticulosis. 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 11. 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 12. Status post hysterectomy. 13. Sigmoid diverticulosis. 14. Leukocytosis with granulocytosis. 15. Normocytic anemia. 16. Hyponatremia. 17. Slow-resolving acute renal failure. 18. Hyperuricemia. 19. History of dementia. 20. Deconditioning. 21. Gait dysfunction. 22. Recurrent fall. 23. Questionable functional quadriplegia. 24. Hypovitaminosis D. 25. History of dyslipidemia. 26. History of angina, history of hypertension, history of dementia. 1. Altered mental status, etiology undetermined. 2. Acute renal failure and acute kidney injury and prerenal kidney injury. 3. Questionable and possible urinary tract infection. 4. Recurrent fall and gait dysfunction. 5. History of dementia. 6. Questionable swallowing and feeding dysfunction. 7. Leukocytosis with granulocytosis. 8. Normocytic anemia. 9. Hyperuricemia. 10. Hyperphosphatemia. 11. Transaminitis. 12. Elevated BNP with history of congestive heart failure. 13. Hematuria, pyuria, bacteriuria. 14. Left bundle branch block and left axis deviation. 15. Generalized osteopenia and thoracolumbar spondylosis with old healed left rib fracture. 16. Status post mastectomy for left breast carcinoma. 17. Gait dysfunction. 18. Recurrent falls. 19. 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 20. Questionable cystitis with thickened urinary bladder wall. 21. Questionable echogenic urinary bladder mass. 22. History of dementia. 23. History of hypovitaminosis D, history of anxiety, history of dementia, history of congestive heart failure, history of angina, history of dementia. 24. History of colovesicular and colovaginal fistula. 1. questionable atrial fibrillation with rapid ventricular response. 2. Left anterior hemiblock. 3. Hypertensive cardiovascular disease. 4. Questionable lateral ischemic changes. PLAN: At this time, the patient's IV fluid has been changed to D5 half normal saline at 80 mL an hour. Serial labs have been ordered. We are awaiting urine culture, which is not collected yet. CURRENT CONSULTATIONS: Infectious disease, urology, surgery, nephrology, and cardiology. CURRENT MEDICATIONS: 1. Ativan 0.5 mg twice a day. 2. Cardizem 30 mg t.i.d. 3. Coreg 12.5 mg twice a day. 4. IV D5 half normal saline at 80 mL an hour. 5. Dilaudid has been ordered by surgery. 6. 0.5 mg IV q. 4 p.r.n. 7. Exelon capsule 4.5 mg twice a day. 8. Flagyl 500 p.o. q. 8. 9. Heparin has been started at 5000 units subcutaneous q. 12. 10. The patient is selenium 200 mcg daily. 11. Imdur 30 mg daily. 12. Klonopin 4 mg at bedtime. 13. Protonix 40 mg daily. 14. Requip 8 mg daily. 15. Vitamin D3 2000 units daily. 16. Zosyn 3.375 g IV q. 6. 17. The patient is on oxygen continuous. Repeat EKG ordered. The patient has been ordered physical therapy, out of bed, ambulation. Gait training ordered. The patient's case is referred to TCU evaluation. The patient has been ordered occupational therapy, physical therapy , out of bed, ADRIANO stockings, SCDs. The patient was seen by Dr. Alfredo today. The patient's family declined further surgery for the repair of the fistula. The patient's family and the patient understand the risks and consequences, which have been explained to the patient and the patient's family on multiple occasions during this hospitalization. Dictated and electronically signed, not read. Rigo Vargas MD cc: [id number] TT: 11/15/2016 17:25:03 Confirmation # [id number] Dictation # [id number] satya GUEVARA
--- NOTE | 2016-11-15 20:01 | CARD ---
APPROVED REPORT EKG Measurement Heart [id number] <Conclusion> Sinus rhythm with occasional premature ventricular complexes Left axis deviation Left bundle branch block Abnormal ECG
[2016-11-16 00:06] LABS: CALCIUM 7.2 mg/dL (8.4-10.5); MAGNESIUM 1.9 mg/dL (1.7-2.2); POTASSIUM 3.6 mmol/L (3.6-5.0)
[2016-11-16] MEDS: Dextrose 5%/0.45% NS 1,000 ML IV SCH (00:48)
[2016-11-16] MEDS: Piperacillin/Tazobact 3.375 gm 100 ML IVPB SCH ×3 (00:48→12:08)
[2016-11-16] MEDS: HYDROmorphone 0.5 mg/0.5 ml ISec IVP PRN (06:12)
[2016-11-16] MEDS: Pantoprazole 40 mg EC Tab PO SCH (06:43)
[2016-11-16 06:52] LABS: ADD MANUAL DIFF? NO
[2016-11-16 06:59] LABS: BASO # 0.02 K/mm3 (0.0-2.0); BASO % 0.2 % (0.0-3.0); EOS # 0.1 (0.0-0.7); GRAN # 7.55 (1.4-6.5); GRAN % 65.3 % (50.0-68.0); HEMATOCRIT 38.1 % (36.0-48.0); LYMPH # 2.9 (1.2-3.4); LYMPH % 24.7 % (22.0-35.0); MEAN CELL VOLUME 98.4 fL (80.0-105.0); MEAN CORPUSCULAR HGB CONC 31.5 g/dl (31.0-37.0); MEAN PLATELET VOLUME 9.8 fl (7.0-11.0); MONO % 8.8 % (1.0-6.0); PLATELET COUNT 442 10^3/uL (120.0-450.0); RED CELL DISTRIBUTION WIDTH 19.4 % (11.5-14.5); WHITE BLOOD COUNT 11.6 10^3/ul (4.5-11.0)
[2016-11-16 07:06] LABS: BILIRUBIN,DIRECT 0.4 mg/dL (0.0-0.4); BILIRUBIN,TOTAL 0.5 mg/dL (0.2-1.3); CALCIUM 7.5 mg/dL (8.4-10.5); MAGNESIUM 1.9 mg/dL (1.7-2.2); POTASSIUM 3.3 mmol/L (3.6-5.0); TOTAL PROTEIN 6.5 g/dL (5.8-8.3)
[2016-11-16 07:10] LABS: INR 1.2 (0.93-1.08); PARTIAL THROMBOPLASTIN TIME 28.7 Seconds (23.7-30.8)
[2016-11-16 07:17] LABS: ALB/GLOB RATIO 0.8 (1.1-1.8)
[2016-11-16] MEDS: SELENIUM 200 MCG PO SCH (09:35)
--- NOTE | 2016-11-16 09:50 | CP.PCM.PCO ---
Physician Communication Note - Physician Communication Note Physician Communication Note: 16fr power too small/?Heparin Rx for A Fib/ Progress diet
[2016-11-16] MEDS: Potassium Chloride 10 mEq ER Tab PO SCH ×2 (11:35→18:06)
[2016-11-16] MEDS: Potassium Chloride 20 mEq 100 ML IVPB SCH ×2 (11:37→14:28)
--- NOTE | 2016-11-16 13:28 | CP.PCM.PN ---
Subjective - Date & Time of Evaluation Date of Evaluation: 11/16/16 Time of Evaluation: 11:35 - Subjective Subjective: Comfortable in bed but complaining of some congestion in the chest. No fevers overnight. Objective - Vital Signs/Intake and Output Vital Signs (last 24 hours): Temp Pulse Resp BP Pulse Ox 97.9 F 91 H 18 125/72 93 L 11/16/16 07:59 11/16/16 07:59 11/16/16 07:59 11/16/16 09:32 11/16/16 07:59 Intake and Output: 11/16/16 11/16/16 06:59 18:59 Intake Total 1000 Output Total 4950 Balance -3950 - Medications Medications: Current Medications Carvedilol (Coreg) 12.5 mg PO 0800,1800 [facility] Last Admin: 11/14/16 17:47 Dose: Not Given Cholecalciferol (Vitamin D) 2,000 iu PO DAILY [facility] Last Admin: 11/16/16 09:36 Dose: 2,000 iu Clonazepam (Klonopin) 4 mg PO HS [facility] PRN Reason: Protocol Last Admin: 11/15/16 23:01 Dose: 4 mg Diltiazem HCl (Cardizem) 30 mg PO TID [facility] Last Admin: 11/16/16 09:32 Dose: 30 mg Heparin Sodium (Porcine) (Heparin) 5,000 units SC Q12 [facility] PRN Reason: Protocol Last Admin: 11/16/16 09:37 Dose: 5,000 units Home Med (Home Med) 1 unit PO DAILY [facility] Last Admin: 11/16/16 09:35 Dose: 1 unit Hydromorphone HCl (Dilaudid) 0.5 mg IVP Q4H PRN PRN Reason: Pain, moderate (4-7) Last Admin: 11/16/16 06:12 Dose: 0.5 mg Piperacillin Sod/Tazobactam Sod (Zosyn 3.375 In Ns 100ml) 100 mls @ 200 mls/hr IVPB Q6 [facility] PRN Reason: Protocol Stop: 11/20/16 07:16 Last Admin: 11/16/16 12:08 Dose: Not Given Dextrose/Sodium Chloride (Dextrose 5%/0.45% Ns 1000 Ml) 1,000 mls @ 80 mls/hr IV [id number] [facility] Last Admin: 11/16/16 00:48 Dose: 80 mls/hr Potassium Chloride (Potassium Chloride 20 Meq/100 Ml) 100 mls @ 50 mls/hr IVPB Q2H [facility] Stop: 11/16/16 14:14 Last Admin: 11/16/16 11:37 Dose: 50 mls/hr Isosorbide Mononitrate (Imdur) 30 mg PO 0600 [facility] Last Admin: 11/13/16 05:33 Dose: 30 mg Lorazepam (Ativan) 0.5 mg PO BID [facility] PRN Reason: Protocol Last Admin: 11/16/16 09:31 Dose: 0.5 mg Metronidazole (Flagyl) 500 mg PO Q8 [facility] PRN Reason: Protocol Last Admin: 11/16/16 06:12 Dose: 500 mg Pantoprazole Sodium (Protonix Ec Tab) 40 mg PO 0630 [facility] Last Admin: 11/16/16 06:43 Dose: 40 mg Potassium Chloride (Klor-Con 10) 10 meq PO BID [facility] Stop: 11/18/16 08:00 Last Admin: 11/16/16 11:35 Dose: 10 meq Rivastigmine (Exelon Cap) 4.5 mg PO 0800,1800 [facility] Last Admin: 11/16/16 09:34 Dose: 4.5 mg Ropinirole HCl (Requip) 8 mg PO 0800 [facility] Last Admin: 11/16/16 09:35 Dose: 8 mg - Labs Labs: 11/16/16 06:48 11/16/16 06:48 PT 13.0 Seconds (9.9-11.8) H 11/16/16 06:48 INR 1.20 (0.93-1.08) H 11/16/16 06:48 APTT 28.7 Seconds (23.7-30.8) 11/16/16 06:48 - Constitutional Appears: Non-toxic, No Acute Distress - Head Exam Head Exam: NORMAL INSPECTION - ENT Exam ENT Exam: Mucous Membranes Moist - Neck Exam Neck Exam: absent: Lymphadenopathy, Meningismus - Respiratory Exam Respiratory Exam: Decreased Breath Sounds - Cardiovascular Exam Cardiovascular Exam: +S1, +S2 - GI/Abdominal Exam GI & Abdominal Exam: Soft. absent: Tenderness Assessment and Plan - Assessment and Plan (Free Text) Plan: Assessment sepsis secondary to rectovesical fistula with inadequate drainage of urine and stool S/P loop colostomy POD #2 chronic renal failure chronic CHF Parkinson's disease history of breast cancer history of rectovesical and rectovaginal fistula Plan on Zosyn (day 4, day 3 from surgery) - will change to Cefepime and flagyl to decrease the risk of pulmonary congestion Discussed with family - will keep antibioticfs for at least another day and observe the patient clinically
--- NOTE | 2016-11-16 15:42 | CP.PCM.PN ---
Subjective - Date & Time of Evaluation Date of Evaluation: 11/16/16 Time of Evaluation: 13:40 - Subjective Subjective: Surgery Progress note. Dr. Alfredo Pt seen and examined at bedside. Family at bedside. Power was replaced by nursing staff last night. Patient denies any new complaints. No N/V/D. Tolerating CLD, however, poor intake as per family. No F/C. Small amount of liquid stool output from colostomy. Objective - Vital Signs/Intake and Output Vital Signs (last 24 hours): Temp Pulse Resp BP Pulse Ox 97.9 F 91 H 18 111/80 93 L 11/16/16 07:59 11/16/16 07:59 11/16/16 07:59 11/16/16 14:46 11/16/16 07:59 Intake and Output: 11/16/16 11/16/16 06:59 18:59 Intake Total 1000 360 Output Total 4950 500 Balance -3950 -140 - Medications Medications: Current Medications Carvedilol (Coreg) 12.5 mg PO 0800,1800 [facility] Last Admin: 11/14/16 17:47 Dose: Not Given Cholecalciferol (Vitamin D) 2,000 iu PO DAILY [facility] Last Admin: 11/16/16 09:36 Dose: 2,000 iu Clonazepam (Klonopin) 4 mg PO HS [facility] PRN Reason: Protocol Last Admin: 11/15/16 23:01 Dose: 4 mg Diltiazem HCl (Cardizem) 30 mg PO TID [facility] Last Admin: 11/16/16 14:46 Dose: 30 mg Heparin Sodium (Porcine) (Heparin) 5,000 units SC Q12 BETHEL PRN Reason: Protocol Last Admin: 11/16/16 09:37 Dose: 5,000 units Home Med (Home Med) 1 unit PO DAILY [facility] Last Admin: 11/16/16 09:35 Dose: 1 unit Hydromorphone HCl (Dilaudid) 0.5 mg IVP Q4H PRN PRN Reason: Pain, moderate (4-7) Last Admin: 11/16/16 06:12 Dose: 0.5 mg Dextrose/Sodium Chloride (Dextrose 5%/0.45% Ns 1000 Ml) 1,000 mls @ 80 mls/hr IV .[id number] [facility] Last Admin: 11/16/16 00:48 Dose: 80 mls/hr Cefepime HCl (Maxipime 1gm) 100 mls @ 100 mls/hr IVPB Q12 BETHEL PRN Reason: Protocol Stop: 11/21/16 22:01 Isosorbide Mononitrate (Imdur) 30 mg PO 0600 [facility] Last Admin: 11/13/16 05:33 Dose: 30 mg Levalbuterol HCl (Xopenex) 0.63 mg IH [id number] BETHEL Lorazepam (Ativan) 0.5 mg PO BID BETHEL PRN Reason: Protocol Last Admin: 11/16/16 09:31 Dose: 0.5 mg Metronidazole (Flagyl) 500 mg PO Q8 BETHEL PRN Reason: Protocol Last Admin: 11/16/16 14:47 Dose: 500 mg Pantoprazole Sodium (Protonix Ec Tab) 40 mg PO 0630 [facility] Last Admin: 11/16/16 06:43 Dose: 40 mg Potassium Chloride (Klor-Con 10) 10 meq PO BID [facility] Stop: 11/18/16 08:00 Last Admin: 11/16/16 11:35 Dose: 10 meq Rivastigmine (Exelon Cap) 4.5 mg PO 0800,1800 [facility] Last Admin: 11/16/16 09:34 Dose: 4.5 mg Ropinirole HCl (Requip) 8 mg PO 0800 [facility] Last Admin: 11/16/16 09:35 Dose: 8 mg - Labs Labs: 11/16/16 06:48 11/16/16 06:48 PT 13.0 Seconds (9.9-11.8) H 11/16/16 06:48 INR 1.20 (0.93-1.08) H 11/16/16 06:48 APTT 28.7 Seconds (23.7-30.8) 11/16/16 06:48 - Constitutional Appears: Well, No Acute Distress - Head Exam Head Exam: ATRAUMATIC, NORMAL INSPECTION, NORMOCEPHALIC - Eye Exam Eye Exam: EOMI, Normal appearance. absent: Scleral icterus - ENT Exam ENT Exam: Mucous Membranes Moist - Respiratory Exam Respiratory Exam: Clear to Ausculation Bilateral. absent: Wheezes - Cardiovascular Exam Cardiovascular Exam: RRR - GI/Abdominal Exam GI & Abdominal Exam: Soft Additional comments: Colostomy in place, small amount of liquid stool. Mild edema of the bowel present. [place], no pain. - Extremities Exam Extremities Exam: Normal Inspection - Neurological Exam Neurological Exam: Alert, Awake, Oriented x3 - Psychiatric Exam Psychiatric exam: Normal Affect, Normal Mood - Skin Skin Exam: Dry, Intact, Normal Color, Warm Assessment and Plan - Assessment and Plan (Free Text) Assessment: 81yo F with Rectal vesiculo fistula, Rectal vaginal fistula. S/p diverting loop colostomy on 11/14. - Noted that the 3-way power was replaced by 16F power due to leak overnight. Recommend replace with at least a 20F power if it clogs or gets removed. - Cont abx as per ID - On Full liquid. Advance as tolerated - monitor ostomy and power output Discussed case with Dr. Juni Puente PGY1 surgery pager:[phone]
--- NOTE | 2016-11-16 16:03 | PN ---
DATE: 11/16/2016 The patient is seen out of bed to recliner. The patient's son is attempting to feed her. The patient is alert, awake, responsive. The patient does not appear to be in any distress. According to the son and the nurses, patient appears to be tired today. PHYSICAL EXAMINATION: VITAL SIGNS: T-max 98.5. Telemetry shows atrial fibrillation. The patient had asymptomatic 6 beats of V-tach. The patient's repeat labs were drawn, which was within normal limit. Blood pressure 125/72, 118/80, respirations 18, O2 sat averaging 95%-97%. INTAKE AND OUTPUT: Intake yesterday 840, output 4850. Today, intake 1000, output 4950. GENERAL: The patient is out of bed to recliner. HEAD: Normocephalic. HEENT: Shows pink conjunctivae, anicteric sclerae. No oropharyngeal lesion. NECK: No neck rigidity. CHEST: Kyphosis. LUNGS: Shows positive rhonchi, questionable fine creps noted. CARDIOVASCULAR: Shows S1, S2. Irregular rhythm. Positive systolic murmur right second intercostal space, left sternal border, left second intercostal space. ABDOMEN: Soft, positive bowel sounds. GENITALIA: Female. Positive Ramirez catheter noted. The patient had 3-way continuous bladder irrigation discontinued as per urology's recommendation. The patient now has a 2-way Ramirez. EXTREMITIES: Shows positive SCDs. Trace swelling of the lower extremities. MUSCULOSKELETAL: Shows a body mass index of 22. NEUROLOGIC: Cranial nerves II-XII could not be tested. VASCULAR: Palpable pulses. PSYCHIATRIC: History of anxiety, depression, dementia, Parkinsonism. DIAGNOSTICS: 11/16: WBC count is down to 11.6, hemoglobin and hematocrit 12 and 38.1, platelets 442. PT, PTT 13 and 28.7. Sodium is down to 147, potassium 3.3, chloride 117, CO2 19, anion gap 14, BUN 31, creatinine 1.2, GFR 52, glucose 136, calcium 7.5, magnesium 1.9. LFTs are normal. Albumin 2.8. Blood cultures no growth. The patient has been ordered a stat chest x-ray for evaluation of rhonchi and creps. The patient's EKG from yesterday shows sinus rhythm, left anterior hemiblock, left bundle branch block. The patient seen by surgery today. They are recommending changing Ramirez to a bigger size rather than 16-[place]izen [place]. The patient seen by infectious disease. IMPRESSION AND PLAN: 1. Sepsis, secondary to rectovaginal, rectovesical fistula with inadequate drainage of urine and stool, status post loop colostomy, postop day 2. 2. Questionable lethargy, etiology undetermined. 3. Paroxysmal atrial fibrillation. 4. Leukocytosis with granulocytosis. 5. Normocytic anemia. 6. Transient coagulopathy. 7. Hypernatremia. 8. Hypokalemia. 9. Acute kidney injury with underlying chronic kidney disease stage III with prerenal kidney injury. 10. Hypocalcemia. 11. Mild hypoalbuminemia. 12. Left bundle branch block, left anterior hemiblock 13. Status post loop colostomy, postop day 2. 14. Sepsis, secondary to colovesicular, colovaginal fistula. 15. Encephalopathy. 16. History of anxiety, history of dementia, history of Parkinson disease, history of depression, history of hypovitaminosis D. 1. 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 2. Status post loop colostomy. 3. 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 4. Atrial fibrillation with rapid ventricular response. 5. Left anterior hemiblock. 6. Left bundle branch block. 7. Transient hypotension and bradycardia. 8. Hypernatremia. 9. Acute kidney injury with underlying chronic kidney disease stage III/IV. 10. Indeterminate troponin. 11. Leukocytosis with granulocytosis. 12. Transient coagulopathy. 13. Hyponatremia. 14. Prerenal kidney injury. 15. Severe gait dysfunction and deconditioning. 16. Status post colostomy diversion. 17. Paroxysmal atrial fibrillation converting to normal sinus rhythm with left axis deviation, left anterior hemiblock, left bundle branch block. 18. Urinary retention. 19. History of dementia, Parkinson disease. 20. Transient confusional state. 21. Transient agitation (resolved). 22. Deconditioning. 23. Gait dysfunction. 24. Status post loop colostomy, postop day 1. 25. Deconditioning. 26. Gait dysfunction. 27. Questionable possible functional quadriplegia. 28. History of anxiety. 29. History of dementia. 30. History of Parkinson disease. 31. History of hypovitaminosis D. 1. Sepsis with leukocytosis and granulocytosis. 2. New onset atrial fibrillation with rapid ventricular response and indeterminate troponin. 3. Moderate aortic regurgitation, mild aortic stenosis, moderate mitral regurgitation with left ventricular ejection fraction of 55%. 4. Left anterior hemiblock. 5. Questionable left bundle branch block. 6. Lateral wall ischemic changes on the EKG. 7. Severe deconditioning, gait dysfunction versus questionable and possible functional quadriplegia. 8. Sepsis, secondary to rectovesical and rectovaginal fistula and inadequate drainage of urine and stool. 9. Status post treatment for Escherichia coli urinary tract infection, secondary to rectovesical, rectovaginal fistula. 10. Acute kidney injury. 11. Transient hypotension. 12. History of hypertension. 13. Anemia. 14. Leukocytosis. 15. Normocytic iron deficiency anemia. 16. Mild coagulopathy, secondary to anticoagulation. 17. Hypokalemia. 18. Acute kidney injury with underlying chronic kidney disease stage IV. 19. Hypoalbuminemia. 20. Indeterminate troponin. 21. Hypotension with sepsis and new onset atrial fibrillation with rapid ventricular response. 22. History of Parkinson disease, dementia, history of anxiety, depression, history of hypovitaminosis D. 1. Recurrent urinary retention with urinary bladder distention. 2. Questionable systemic inflammatory response syndrome versus sepsis with low- grade fever of 105, tachycardia 3. Leukocytosis with granulocytosis. 4. Normocytic anemia. 5. Hypokalemia. 6. Acute kidney injury. 7. Mild hypoalbuminemia 8. Severe deconditioning, gait dysfunction and bedridden status with questionable functional quadriplegia. 9. History of dementia, depression, Parkinson's disease, history of hypertension. 10. Hypovitaminosis D. 11. Deconditioning. 1. Recurrent urinary retention with urinary bladder distention. 2. Severe deconditioning and gait dysfunction. 3. Functional quadriplegia with severe deconditioning and gait dysfunction and bedridden status. 4. Small bilateral pleural effusion and bibasilar atelectasis. 5. Questionable sigmoid colitis with mural thickening. 6. Urinary retention with distended urinary bladder with air fluid level. 7. Hypertension. 8. Tachycardia. 9. Leukocytosis with granulocytosis. 10. Questionable systemic inflammatory response syndrome. 11. Normocytic anemia. 12. Acute recurrent kidney injury. 13. 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 14. Normocytic iron deficiency anemia. 15. Chronic kidney disease stage II/III. 1. Severe deconditioning, severe gait dysfunction and possible questionable functional quadriplegia. 2. Urinary retention. 3. Colovesicular and colovaginal fistula. 4. Abdominal distention, probably secondary to urinary retention. 5. Sepsis secondary to Escherichia coli urinary tract infection and colovesicular and colovaginal fistula. 6. Hypertension. 7. Questionable ileus with constipation, fecal retention, fecal stasis. 8. Asymptomatic hypoxemia. 9. Status post acute renal failure. 10. Normocytic iron deficiency anemia. 11. Status post IV Venofer infusion. 12. Leukocytosis with granulocytosis. 13. Status post acute renal failure. 14. Hypocalcemia. 15. Mild hypoalbuminemia. 16. History of anxiety disorder, history of dementia, history of depression, history of Parkinson's disease, hypovitaminosis D. 1. Severe deconditioning and gait dysfunction. 2. Deconditioning. 3. Questionable constipation and fecal retention. 4. Asymptomatic hypoxemia. 5. Leukocytosis with granulocytosis. 6. Normocytic anemia. 7. Prerenal kidney injury. 8. Status post acute renal failure. 9. 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 10. Deconditioning. 11. Gait dysfunction. 12. Sepsis secondary to Escherichia coli urinary tract infection. 13. History of colovesicular colovaginal fistula. 14. Dementia. 15. History of Parkinson disease. 16. History of anxiety disorder. 17. History of constipation. 1. Severe deconditioning and gait dysfunction. 2. Possible functional quadriplegia. 3. Nonproteinuric chronic kidney disease stage III. 4. Acute renal failure, secondary to prerenal kidney injury (resolved). 5. Mild venous stasis of the lower extremities. 6. Sepsis with Escherichia coli urinary tract infection. 7. Rectovesical and rectovaginal fistula. 8. Deconditioning. 9. Gait dysfunction. 10. Normocytic anemia. 11. Normocytic iron deficiency anemia. 12. Leukocytosis with granulocytosis. 13. Hypocalcemia. 14. Hypokalemia. 1. Severe gait dysfunction and deconditioning and possible functional quadriplegia. 2. Sepsis secondary to Escherichia coli urinary tract infection with history of rectovaginal, rectovesical fistula. 3. Escherichia coli urinary tract infection. 4. Acute renal failure. 5. Hypoxemia. 6. Normocytic anemia. 7. Leukocytosis with granulocytosis. 8. Status post acute renal failure. 9. Hypocalcemia. 10. Mild hypoalbuminemia. 11. History of dementia, Parkinson's disease, anxiety, and possible depression. 12. Prerenal kidney injury. 13. Non-proteinuric chronic kidney disease stage III. 14. History of anxiety. 15. History of dementia, history of depression, history of hypovitaminosis D. 1. Severe deconditioning and gait dysfunction and possible bedridden status and possible functional quadriplegia. 2. Sepsis secondary to a Escherichia coli urinary tract infection with history of vaginal and rectovesical fistula. 3. Deconditioning. 4. Escherichia coli urinary tract infection. 5. Acute renal failure. 6. History of hypertension. 7. Asymptomatic hypoxemia. 8. Kyphosis of the thoracic spine. 9. Hypoalbuminemia. 10. Hypocalcemia. 11. Normocytic anemia. 12. Hypokalemia. 13. Oropharyngeal dysphagia with impulsive and unsafe eating behaviors. 14. History of anxiety disorder. 15. History of dementia. 16. History of Parkinson disease. 17. History of normocytic iron deficiency anemia. 1. Severe gait dysfunction, deconditioning and bedridden status. 2. Questionable and possible functional quadriplegia. 3. Escherichia coli urinary tract infection. 4. Acute renal failure. 5. Systemic inflammatory response syndrome versus possible sepsis secondary to Escherichia coli urinary tract infection. 6. Colovesical and colovaginal fistula. 7. History of hypertension. 8. Asymptomatic hypoxemia. 9. Normocytic iron deficiency anemia. 10. Normal potassium. 11 Acute renal failure with mild prerenal kidney injury. 12. Non-proteinuric chronic kidney disease stage III/IV. 13. Hypocalcemia. 14. Hypoalbuminemia. 15. Malnutrition. 16. History of anxiety disorder. 17. History of dementia. 18. Iron deficiency normocytic anemia. 19. History of anxiety disorder. 20. Hypovitaminosis D. 21. Hyperuricemia. 22. Deconditioning. 1. Acute renal failure. 2. Systemic inflammatory response syndrome versus possible sepsis secondary to Escherichia coli urinary tract infection. 3. Colovesicular and colovaginal fistula. 4. Acute renal failure. 5. Poor compliance. 6. Severe gait deconditioning and severe gait dysfunction and bedridden status. 7. Functional quadriplegia. 8. Transient asymptomatic hypoxemia. 9. Leukocytosis with granulocytosis. 10. Normocytic iron deficiency anemia. 11. Transient hypernatremia. 12. Acute renal failure. 13. Hyperuricemia. 14. Transaminitis. 15. . 16. Hyperuricemia. 17. Iron deficiency normocytic anemia. 18. Escherichia coli urinary tract infection with proteinuria, hematuria, bacteriuria and pyuria. 19. Sepsis secondary to Escherichia coli urinary tract infection. 20. Mild aortic stenosis. 21. Moderate aortic regurgitation, moderate mitral regurgitation and mild tricuspid regurgitation. 22. History of anxiety disorder, history of dementia, history of hypovitaminosis D and hyperuricemia. 1. Acute renal failure. 2. Questionable sepsis with leukocytosis, granulocytosis. 3. Normocytic anemia. 4. Hypertension. 5. History of dementia. 6. Leukocytosis with granulocytosis. 7. Normocytic anemia. 8. Transient hypernatremia. 9. Acute kidney injury and acute renal failure (resolving). 10. Severe gait dysfunction, deconditioning and possible functional quadriplegia. 11. Hyperuricemia. 12. Transaminitis. 13. Hyperprocalcitoninemia. 14. Hypovitaminosis D. 15. Acute renal failure and acute kidney injury. 16. Escherichia coli urinary tract infection with hematuria, pyuria, bacteriuria. 17. Systemic inflammatory response syndrome with possible sepsis secondary to Escherichia coli urinary tract infection with ____vaginal and ____ fistula. 18. Prerenal azotemia. 19. Chronic kidney disease, stage, IIIB, nonproteinuric. 20. Severe deconditioning and gait dysfunction. 21. Chronic ____, ____ fistula with Escherichia coli urinary tract infection. 22. Moderate aortic and moderate mitral regurgitation. 23. Mild mitral valve prolapse, calcified aortic valve with mild aortic stenosis and moderate aortic regurgitation and moderate mitral regurgitation and mild tricuspid regurgitation with left ventricular ejection fraction of 55%. 24. Gait dysfunction. 25. Deconditioning 26. Anxiety disorder. 27. Dementia. 28. Hypovitaminosis D. 29. Hyperuricemia. 1. Acute renal failure. 2. Questionable sepsis with leukocytosis and granulocytosis. 3. Normocytic anemia. 4. Questionable hemorrhagic cystitis. 5. Questionable hemorrhagic cystitis with intrinsic mural and perivesicular abnormalities and dependent echogenic material debris in the bladder. 6. Left bundle-branch block and left axis deviation. 7. Left lower lung pleural thickening. 8. Cardiomegaly. 9. Sigmoid diverticulosis. 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 11. 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 12. Status post hysterectomy. 13. Sigmoid diverticulosis. 14. Leukocytosis with granulocytosis. 15. Normocytic anemia. 16. Hyponatremia. 17. Slow-resolving acute renal failure. 18. Hyperuricemia. 19. History of dementia. 20. Deconditioning. 21. Gait dysfunction. 22. Recurrent fall. 23. Questionable functional quadriplegia. 24. Hypovitaminosis D. 25. History of dyslipidemia. 26. History of angina, history of hypertension, history of dementia. 1. Altered mental status, etiology undetermined. 2. Acute renal failure and acute kidney injury and prerenal kidney injury. 3. Questionable and possible urinary tract infection. 4. Recurrent fall and gait dysfunction. 5. History of dementia. 6. Questionable swallowing and feeding dysfunction. 7. Leukocytosis with granulocytosis. 8. Normocytic anemia. 9. Hyperuricemia. 10. Hyperphosphatemia. 11. Transaminitis. 12. Elevated BNP with history of congestive heart failure. 13. Hematuria, pyuria, bacteriuria. 14. Left bundle branch block and left axis deviation. 15. Generalized osteopenia and thoracolumbar spondylosis with old healed left rib fracture. 16. Status post mastectomy for left breast carcinoma. 17. Gait dysfunction. 18. Recurrent falls. 19. 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 20. Questionable cystitis with thickened urinary bladder wall. 21. Questionable echogenic urinary bladder mass. 22. History of dementia. 23. History of hypovitaminosis D, history of anxiety, history of dementia, history of congestive heart failure, history of angina, history of dementia. 24. History of colovesicular and colovaginal fistula. 1. questionable atrial fibrillation with rapid ventricular response. 2. Left anterior hemiblock. 3. Hypertensive cardiovascular disease. 4. Questionable lateral ischemic changes. PLAN: At this time, serial labs have been ordered. The patient has been ordered consultation with infectious disease, urology, surgery, nephrology, cardiology. CURRENT MEDICATIONS: 1. Ativan 0.5 twice a day. 2. Cardizem 30 mg 3 times a day. 3. Coreg 12.5 mg twice a day. 4. D5 half normal at 80 mL an hour. 5. Dilaudid 0.5 mg IV q. 4 p.r.n. 6. Exelon capsule 4.5 mg twice a day. 7. Flagyl 500 p.o. q. 8. 8. The patient is started on heparin subQ q. 12 for DVT prophylaxis. 9. Selenium 200 mcg daily. 10. Imdur 30 mg daily. 11. Klonopin 4 mg at bedtime. 12. The patient was given potassium 10 mEq twice a day. 13. Cefepime 1 gram IV q. 12. 14. Protonix 40 daily. 15. The patient was also given potassium riders. 16. Protonix 40 daily. 17. Requip 8 mg daily. 18. Vitamin D 2000 units daily. 19. The patient started on Xopenex nebulizer 0.63 mg every 6 hours. The patient has been ordered chest x-ray, portable oxygen 2 liters. Liquid diet has been ordered by Dr. Alfredo from today. The patient has been ordered out of bed, SCDs, physical therapy, occupational therapy ordered. The patient has been ordered TCU evaluation. The patient's overall prognosis is guarded to poor, which has been explained to the patient and the patient's son and the at length. The patient has been ordered physical therapy. Occupational therapy. The patient has been ordered physical therapy, occupational therapy. The patient has to be continued and treated with above intervention. IV antibiotics changed to cefepime 1 gram IV q. 12 for 5 days by infectious disease. The patient at present has been ordered serial labs. The patient's family updated about patient's overall guarded to poor prognosis, which they acknowledged and understand. Dictated and electronically signed, not read. Rigo Vargas MD cc: [id number] TT: 11/16/2016 16:02:21 Confirmation # [id number] Dictation # [id number] en MTDD
--- NOTE | 2016-11-16 16:07 | RAD ---
PROCEDURE: CHEST RADIOGRAPH, 1 VIEW HISTORY: ??CHF COMPARISON: 11/01/2016 FINDINGS: LUNGS: Bibasilar infiltrates. PLEURA: Bibasilar effusions. CARDIOVASCULAR: Normal. OSSEOUS STRUCTURES: No significant abnormalities. VISUALIZED UPPER ABDOMEN: Normal. OTHER FINDINGS: None. IMPRESSION: New bibasilar infiltrates and effusions. Findings compatible with CHF.
[2016-11-16] MEDS: Levalbuterol 0.63 MG/3 ML Inhal Soln UD IH SCH ×2 (16:26→19:15)
[2016-11-16] MEDS: Cefepime 1gm in NS 100ml 100 ML IVPB SCH (22:20)
[2016-11-17] MEDS: Levalbuterol 0.63 MG/3 ML Inhal Soln UD IH SCH ×4 (01:45→20:18)
[2016-11-17 01:50] LABS: ADD MANUAL DIFF? NO
[2016-11-17 01:56] LABS: BASO # 0.02 K/mm3 (0.0-2.0); BASO % 0.2 % (0.0-3.0); EOS # 0.1 (0.0-0.7); EOS % 1.3 % (1.5-5.0); GRAN # 6.51 (1.4-6.5); GRAN % 65.5 % (50.0-68.0); HEMATOCRIT 38.1 % (36.0-48.0); LYMPH # 2.5 (1.2-3.4); LYMPH % 24.7 % (22.0-35.0); MEAN CORPUSCULAR HEMOGLOBIN 31.5 pg (25.0-35.0); MEAN CORPUSCULAR HGB CONC 31.5 g/dl (31.0-37.0); MEAN PLATELET VOLUME 9.8 fl (7.0-11.0); MONO # 0.8 (0.1-0.6); MONO % 8.3 % (1.0-6.0); PLATELET COUNT 406 10^3/uL (120.0-450.0); RED CELL DISTRIBUTION WIDTH 19.9 % (11.5-14.5); WHITE BLOOD COUNT 9.9 10^3/ul (4.5-11.0)
[2016-11-17 02:15] LABS: ALB/GLOB RATIO 0.8 (1.1-1.8); BILIRUBIN,DIRECT 0.5 mg/dL (0.0-0.4); BILIRUBIN,TOTAL 0.5 mg/dL (0.2-1.3); CALCIUM 7.7 mg/dL (8.4-10.5); MAGNESIUM 1.8 mg/dL (1.7-2.2); POTASSIUM 4.1 mmol/L (3.6-5.0); TOTAL PROTEIN 6.3 g/dL (5.8-8.3)
[2016-11-17 02:17] LABS: INR 1.2 (0.93-1.08)
[2016-11-17] MEDS: Pantoprazole 40 mg EC Tab PO SCH (05:32)
--- NOTE | 2016-11-17 08:54 | CP.PCM.PN ---
Subjective - Date & Time of Evaluation Date of Evaluation: 11/17/16 Time of Evaluation: 07:51 - Subjective Subjective: General Surgery Progress Note for Dr. Alfredo This 81F was seen and examined this AM at bedside. Nurse reports no acute events overnight. Patient has 500cc of output in her stoma. She denies any fevers chills chest pain SOB nausea vomiting. Objective - Vital Signs/Intake and Output Vital Signs (last 24 hours): Temp Pulse Resp BP Pulse Ox 97.5 F L 59 L 18 114/58 L 94 L 11/17/16 06:00 11/17/16 06:00 11/17/16 06:00 11/17/16 06:00 11/17/16 06:00 Intake and Output: 11/17/16 11/17/16 06:59 18:59 Intake Total 0 Output Total 525 Balance -525 - Medications Medications: Current Medications Carvedilol (Coreg) 12.5 mg PO 0800,1800 [facility] Last Admin: 11/14/16 17:47 Dose: Not Given Cholecalciferol (Vitamin D) 2,000 iu PO DAILY [facility] Last Admin: 11/16/16 09:36 Dose: 2,000 iu Clonazepam (Klonopin) 4 mg PO HS [facility] PRN Reason: Protocol Last Admin: 11/16/16 22:19 Dose: 4 mg Diltiazem HCl (Cardizem) 30 mg PO TID [facility] Last Admin: 11/16/16 18:06 Dose: 30 mg Furosemide (Lasix) 20 mg IVP DAILY [facility] Heparin Sodium (Porcine) (Heparin) 5,000 units SC Q12 [facility] PRN Reason: Protocol Last Admin: 11/16/16 22:19 Dose: 5,000 units Home Med (Home Med) 1 unit PO DAILY [facility] Last Admin: 11/16/16 09:35 Dose: 1 unit Hydromorphone HCl (Dilaudid) 0.5 mg IVP Q4H PRN PRN Reason: Pain, moderate (4-7) Last Admin: 11/16/16 06:12 Dose: 0.5 mg Cefepime HCl (Maxipime 1gm) 100 mls @ 100 mls/hr IVPB Q12 [facility] PRN Reason: Protocol Stop: 11/21/16 22:01 Last Admin: 11/16/16 22:20 Dose: 100 mls/hr Isosorbide Mononitrate (Imdur) 30 mg PO 0600 [facility] Last Admin: 11/13/16 05:33 Dose: 30 mg Levalbuterol HCl (Xopenex) 0.63 mg IH [id number] [facility] Last Admin: 11/17/16 08:07 Dose: 0.63 mg Lorazepam (Ativan) 0.5 mg PO BID [facility] PRN Reason: Protocol Last Admin: 11/16/16 18:07 Dose: 0.5 mg Metronidazole (Flagyl) 500 mg PO Q8 [facility] PRN Reason: Protocol Last Admin: 11/17/16 05:31 Dose: 500 mg Pantoprazole Sodium (Protonix Ec Tab) 40 mg PO 0630 [facility] Last Admin: 11/17/16 05:32 Dose: 40 mg Potassium Chloride (Klor-Con 10) 10 meq PO BID [facility] Stop: 11/18/16 08:00 Last Admin: 11/16/16 18:06 Dose: 10 meq Rivastigmine (Exelon Cap) 4.5 mg PO 0800,1800 [facility] Last Admin: 11/16/16 18:06 Dose: 4.5 mg Ropinirole HCl (Requip) 8 mg PO 0800 [facility] Last Admin: 11/16/16 09:35 Dose: 8 mg - Labs Labs: 11/17/16 01:45 11/17/16 01:45 PT 13.0 Seconds (9.9-11.8) H 11/17/16 01:45 INR 1.20 (0.93-1.08) H 11/17/16 01:45 APTT 29.0 Seconds (23.7-30.8) 11/17/16 01:45 - Constitutional Appears: Non-toxic, No Acute Distress - Head Exam Head Exam: ATRAUMATIC, NORMOCEPHALIC - Eye Exam Eye Exam: EOMI, Normal appearance - ENT Exam ENT Exam: Mucous Membranes Moist, Normal Exam - Respiratory Exam Respiratory Exam: NORMAL BREATHING PATTERN - Cardiovascular Exam Cardiovascular Exam: +S1, +S2 - GI/Abdominal Exam GI & Abdominal Exam: Soft. 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 Replace 16Fr power with at least a 20F power if it clogs or gets removed. Cont abx as per ID Advance as tolerated monitor ostomy and power output D/W Dr. Juni Whitten PGY1
[2016-11-17] MEDS: SELENIUM 200 MCG PO SCH (09:46)
[2016-11-17] MEDS: Potassium Chloride 10 mEq ER Tab PO SCH ×2 (09:48→19:44)
[2016-11-17] MEDS: Cefepime 1gm in NS 100ml 100 ML IVPB SCH ×2 (09:48→22:40)
--- NOTE | 2016-11-17 10:35 | RAD ---
HISTORY: CHF/EFFUSSION COMPARISON: 11/16/2016 TECHNIQUE: Chest PA and lateral FINDINGS: LUNGS: Bilateral lower lobe infiltrates and small effusions PLEURA: No significant pleural effusion identified. No pneumothorax apparent. CARDIOVASCULAR: Moderate cardiomegaly OSSEOUS STRUCTURES: No significant abnormalities. VISUALIZED UPPER ABDOMEN: Normal. OTHER FINDINGS: None. IMPRESSION: Bilateral lower lobe infiltrates and effusions unchanged
--- NOTE | 2016-11-17 13:16 | PN ---
DATE: 11/17/2016 The patient is in room 363, bed 1. REASON FOR CONSULTATION AND FOLLOWUP: Atrial fibrillation, aortic stenosis, mitral regurgitation, st atus post colostomy. HISTORY OF PRESENT ILLNESS: The patient is an 81-year-old female who was admitted with colovesical a nd colovaginal fistula with sepsis then developed atrial fibrillation which converted to sinus rhythm , but now this morning she is again back in atrial fibrillation. The patient is status post colostom y. Denies chest pain, shortness of breath, or palpitation. The patient is known to have hypertensio n, hyperlipidemia, mild aortic stenosis, moderate aortic regurgitation, moderate mitral regurgitation , mild tricuspid regurg, LV ejection fraction on last echo was 55% on 10/23/2016. PHYSICAL EXAMINATION: VITAL SIGNS: The patient's blood pressure 114/58, pulse 116, patient is afebrile, respirations 18. HEAD: Normocephalic. EYES: Pupils normal. Conjunctivae normal. NOSE AND THROAT: Normal. NECK: JVP low. Carotid equal. THORAX: AP diameter normal. LUNGS: No significant rales. CARDIOVASCULAR: S1, S2. Systolic murmur. ABDOMEN: Colostomy. PERIPHERIES: No clubbing, no cyanosis. LABORATORY DATA: WBC 9.9, hemoglobin 12.0, hematocrit 38.1, platelets 406. Sodium 147, potassium 4. 1, BUN 30, creatinine 1.2, magnesium 1.8. AST, ALT normal. Total protein 6.2, albumin 2.7. DIAGNOSES: Recurrent atrial fibrillation, colovesical and rectovaginal fistula, status post colostom y, left bundle branch block on echocardiogram, mild aortic stenosis, moderate aortic regurgitation, m oderate mitral regurgitation, mild tricuspid regurgitation, left ventricular ejection fraction 55%, h ypertension, hyperlipidemia, renal dysfunction. PLAN: Since the patient went back into atrial fibrillation and heart rate is around 114, will increa se the Cardizem from 30 mg t.i.d. to 30 mg q.i.d. Will give 1 stat dose of atenolol 12.5 mg p.o. stat . The patient received Lasix 20 mg IV this morning. Will give another Lasix 20 mg IV today. The jacek coronel's chest x-ray showed bibasilar infiltrates with small pleural effusions. Due to atrial fibrill ation, will add Eliquis 2.5 mg b.i.d. and stop subcutaneous heparin. The patient is on carvedilol 6. 25 b.i.d., metronidazole 500 mg p.o. q. 8 hours, potassium 10 mEq b.i.d., Lasix 20 mg IV daily, cefep diana 1 gram IV q. 12 hours, Protonix 40 daily. Bishop Peoples MD cc: [id number] TT: 11/17/2016 13:15:24 Confirmation # [id number] Dictation # [id number]
--- NOTE | 2016-11-17 13:40 | PN ---
DATE: 11/17/2016 The patient is seen lying in room 363, bed 1. The patient is today seen in the bed. The patient is much more awake than yesterday. The patient is able to answer questions more promptly. The patient's is at bedside. Overnight nurse's notes were reviewed. The patient's chest x-ray yesterday was reviewed with new onset of congestive heart failure, pleural effusion. The patient's IV fluid was discontinued. IV Lasix was given with positive response. The patient, according to the nurse's notes, has 14 beats of V-tach, asymptomatic. PHYSICAL EXAMINATION: GENERAL: The patient was found to be alert, awake, oriented x 3. No distress noted. VITAL SIGNS: T-max is 97.9. Heart rate ranging in low 100s to 60s to 90s. Blood pressure 114/58, 113/60, 125/72, 140/70. Respirations 18, O2 sat averaging around mid to high 90s. INTAKE AND OUTPUT: Intake yesterday 1000, output 4950. Today's intake and output: Not documented. HEAD: Normocephalic, atraumatic. HEENT: Shows pinkish conjunctivae, anicteric sclerae, No oropharyngeal lesion. NECK: No neck rigidity. CHEST: Kyphosis. LUNGS: Shows positive decreased breath sounds at the bases, left more than the right. Decreasing creps and rhonchi and crackles. CARDIOVASCULAR: Shows S1, S2, regular rhythm, positive systolic murmur right second intercostal space, left sternal border, left second intercostal space. ABDOMEN: Soft. Positive right-sided colostomy noted. No suprapubic dullness or fullness noted. GENITALIA: Female. Positive Ramirez catheter draining yellow colored urine. EXTREMITIES: Shows positive SCDs, positive ADRIANO stocking. Decreasing swelling and edema of the feet and the legs. MUSCULOSKELETAL: Shows a body mass index of 22. NEUROLOGIC: Cranial nerves II-XII limited. Gait examination could not be tested as the patient is lying in the bed. PSYCHIATRIC: Positive for history of dementia, Parkinson's disease, anxiety and depression. DIAGNOSTICS: 11/17/2016: WBC count is down to 9.9, hemoglobin and hematocrit are 12 and 38, platelets 406. PT is 13, INR 29. Sodium 147, potassium 4.1, chloride 117, CO2 of 20, anion gap 14, BUN 30, creatinine 1.2, GFR 52, glucose 94, calcium 7.7, magnesium 1.8. LFTs are normal. Albumin 2.7. Blood and urine cultures: No growth. Blood bank: The patient did not receive any transfusion. Chest x-ray from today, which was a PA and lateral film, was to be compared with 11/16/2016. Shows bilateral lower lobe infiltrate and small effusion which is unchanged. The patient's telemetry shows paroxysmal atrial fibrillation today. IMPRESSION AND PLAN: 1. Volume overload versus questionable diastolic congestive heart failure with bilateral bibasilar infiltrates and effusion and cardiomegaly. 2. Atrial fibrillation. 3. History of hypertension. 4. Leukocytosis with granulocytosis. 5. Normocytic anemia. 6. Transient ____natremia. 7. Acute kidney injury with chronic kidney disease, stage III. 8. Hypocalcemia. 9. Hypoalbuminemia. 10. Sepsis. 11. Sepsis with urinary tract infection and colovesicular/colovaginal fistula. 12. Status post loop colostomy, postoperative day 3. 13. Gait dysfunction. 14. Deconditioning. 1. Sepsis, secondary to rectovaginal, rectovesical fistula with inadequate drainage of urine and stool, status post loop colostomy, postop day 2. 2. Questionable lethargy, etiology undetermined. 3. Paroxysmal atrial fibrillation. 4. Leukocytosis with granulocytosis. 5. Normocytic anemia. 6. Transient coagulopathy. 7. Hypernatremia. 8. Hypokalemia. 9. Acute kidney injury with underlying chronic kidney disease stage III with prerenal kidney injury. 10. Hypocalcemia. 11. Mild hypoalbuminemia. 12. Left bundle branch block, left anterior hemiblock 13. Status post loop colostomy, postop day 2. 14. Sepsis, secondary to colovesicular, colovaginal fistula. 15. Encephalopathy. 16. History of anxiety, history of dementia, history of Parkinson disease, history of depression, history of hypovitaminosis D. 1. 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 2. Status post loop colostomy. 3. 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 4. Atrial fibrillation with rapid ventricular response. 5. Left anterior hemiblock. 6. Left bundle branch block. 7. Transient hypotension and bradycardia. 8. Hypernatremia. 9. Acute kidney injury with underlying chronic kidney disease stage III/IV. 10. Indeterminate troponin. 11. Leukocytosis with granulocytosis. 12. Transient coagulopathy. 13. Hyponatremia. 14. Prerenal kidney injury. 15. Severe gait dysfunction and deconditioning. 16. Status post colostomy diversion. 17. Paroxysmal atrial fibrillation converting to normal sinus rhythm with left axis deviation, left anterior hemiblock, left bundle branch block. 18. Urinary retention. 19. History of dementia, Parkinson disease. 20. Transient confusional state. 21. Transient agitation (resolved). 22. Deconditioning. 23. Gait dysfunction. 24. Status post loop colostomy, postop day 1. 25. Deconditioning. 26. Gait dysfunction. 27. Questionable possible functional quadriplegia. 28. History of anxiety. 29. History of dementia. 30. History of Parkinson disease. 31. History of hypovitaminosis D. 1. Sepsis with leukocytosis and granulocytosis. 2. New onset atrial fibrillation with rapid ventricular response and indeterminate troponin. 3. Moderate aortic regurgitation, mild aortic stenosis, moderate mitral regurgitation with left ventricular ejection fraction of 55%. 4. Left anterior hemiblock. 5. Questionable left bundle branch block. 6. Lateral wall ischemic changes on the EKG. 7. Severe deconditioning, gait dysfunction versus questionable and possible functional quadriplegia. 8. Sepsis, secondary to rectovesical and rectovaginal fistula and inadequate drainage of urine and stool. 9. Status post treatment for Escherichia coli urinary tract infection, secondary to rectovesical, rectovaginal fistula. 10. Acute kidney injury. 11. Transient hypotension. 12. History of hypertension. 13. Anemia. 14. Leukocytosis. 15. Normocytic iron deficiency anemia. 16. Mild coagulopathy, secondary to anticoagulation. 17. Hypokalemia. 18. Acute kidney injury with underlying chronic kidney disease stage IV. 19. Hypoalbuminemia. 20. Indeterminate troponin. 21. Hypotension with sepsis and new onset atrial fibrillation with rapid ventricular response. 22. History of Parkinson disease, dementia, history of anxiety, depression, history of hypovitaminosis D. 1. Recurrent urinary retention with urinary bladder distention. 2. Questionable systemic inflammatory response syndrome versus sepsis with low- grade fever of 105, tachycardia 3. Leukocytosis with granulocytosis. 4. Normocytic anemia. 5. Hypokalemia. 6. Acute kidney injury. 7. Mild hypoalbuminemia 8. Severe deconditioning, gait dysfunction and bedridden status with questionable functional quadriplegia. 9. History of dementia, depression, Parkinson's disease, history of hypertension. 10. Hypovitaminosis D. 11. Deconditioning. 1. Recurrent urinary retention with urinary bladder distention. 2. Severe deconditioning and gait dysfunction. 3. Functional quadriplegia with severe deconditioning and gait dysfunction and bedridden status. 4. Small bilateral pleural effusion and bibasilar atelectasis. 5. Questionable sigmoid colitis with mural thickening. 6. Urinary retention with distended urinary bladder with air fluid level. 7. Hypertension. 8. Tachycardia. 9. Leukocytosis with granulocytosis. 10. Questionable systemic inflammatory response syndrome. 11. Normocytic anemia. 12. Acute recurrent kidney injury. 13. 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 14. Normocytic iron deficiency anemia. 15. Chronic kidney disease stage II/III. 1. Severe deconditioning, severe gait dysfunction and possible questionable functional quadriplegia. 2. Urinary retention. 3. Colovesicular and colovaginal fistula. 4. Abdominal distention, probably secondary to urinary retention. 5. Sepsis secondary to Escherichia coli urinary tract infection and colovesicular and colovaginal fistula. 6. Hypertension. 7. Questionable ileus with constipation, fecal retention, fecal stasis. 8. Asymptomatic hypoxemia. 9. Status post acute renal failure. 10. Normocytic iron deficiency anemia. 11. Status post IV Venofer infusion. 12. Leukocytosis with granulocytosis. 13. Status post acute renal failure. 14. Hypocalcemia. 15. Mild hypoalbuminemia. 16. History of anxiety disorder, history of dementia, history of depression, history of Parkinson's disease, hypovitaminosis D. 1. Severe deconditioning and gait dysfunction. 2. Deconditioning. 3. Questionable constipation and fecal retention. 4. Asymptomatic hypoxemia. 5. Leukocytosis with granulocytosis. 6. Normocytic anemia. 7. Prerenal kidney injury. 8. Status post acute renal failure. 9. 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 10. Deconditioning. 11. Gait dysfunction. 12. Sepsis secondary to Escherichia coli urinary tract infection. 13. History of colovesicular colovaginal fistula. 14. Dementia. 15. History of Parkinson disease. 16. History of anxiety disorder. 17. History of constipation. 1. Severe deconditioning and gait dysfunction. 2. Possible functional quadriplegia. 3. Nonproteinuric chronic kidney disease stage III. 4. Acute renal failure, secondary to prerenal kidney injury (resolved). 5. Mild venous stasis of the lower extremities. 6. Sepsis with Escherichia coli urinary tract infection. 7. Rectovesical and rectovaginal fistula. 8. Deconditioning. 9. Gait dysfunction. 10. Normocytic anemia. 11. Normocytic iron deficiency anemia. 12. Leukocytosis with granulocytosis. 13. Hypocalcemia. 14. Hypokalemia. 1. Severe gait dysfunction and deconditioning and possible functional quadriplegia. 2. Sepsis secondary to Escherichia coli urinary tract infection with history of rectovaginal, rectovesical fistula. 3. Escherichia coli urinary tract infection. 4. Acute renal failure. 5. Hypoxemia. 6. Normocytic anemia. 7. Leukocytosis with granulocytosis. 8. Status post acute renal failure. 9. Hypocalcemia. 10. Mild hypoalbuminemia. 11. History of dementia, Parkinson's disease, anxiety, and possible depression. 12. Prerenal kidney injury. 13. Non-proteinuric chronic kidney disease stage III. 14. History of anxiety. 15. History of dementia, history of depression, history of hypovitaminosis D. 1. Severe deconditioning and gait dysfunction and possible bedridden status and possible functional quadriplegia. 2. Sepsis secondary to a Escherichia coli urinary tract infection with history of vaginal and rectovesical fistula. 3. Deconditioning. 4. Escherichia coli urinary tract infection. 5. Acute renal failure. 6. History of hypertension. 7. Asymptomatic hypoxemia. 8. Kyphosis of the thoracic spine. 9. Hypoalbuminemia. 10. Hypocalcemia. 11. Normocytic anemia. 12. Hypokalemia. 13. Oropharyngeal dysphagia with impulsive and unsafe eating behaviors. 14. History of anxiety disorder. 15. History of dementia. 16. History of Parkinson disease. 17. History of normocytic iron deficiency anemia. 1. Severe gait dysfunction, deconditioning and bedridden status. 2. Questionable and possible functional quadriplegia. 3. Escherichia coli urinary tract infection. 4. Acute renal failure. 5. Systemic inflammatory response syndrome versus possible sepsis secondary to Escherichia coli urinary tract infection. 6. Colovesical and colovaginal fistula. 7. History of hypertension. 8. Asymptomatic hypoxemia. 9. Normocytic iron deficiency anemia. 10. Normal potassium. 11 Acute renal failure with mild prerenal kidney injury. 12. Non-proteinuric chronic kidney disease stage III/IV. 13. Hypocalcemia. 14. Hypoalbuminemia. 15. Malnutrition. 16. History of anxiety disorder. 17. History of dementia. 18. Iron deficiency normocytic anemia. 19. History of anxiety disorder. 20. Hypovitaminosis D. 21. Hyperuricemia. 22. Deconditioning. 1. Acute renal failure. 2. Systemic inflammatory response syndrome versus possible sepsis secondary to Escherichia coli urinary tract infection. 3. Colovesicular and colovaginal fistula. 4. Acute renal failure. 5. Poor compliance. 6. Severe gait deconditioning and severe gait dysfunction and bedridden status. 7. Functional quadriplegia. 8. Transient asymptomatic hypoxemia. 9. Leukocytosis with granulocytosis. 10. Normocytic iron deficiency anemia. 11. Transient hypernatremia. 12. Acute renal failure. 13. Hyperuricemia. 14. Transaminitis. 15. . 16. Hyperuricemia. 17. Iron deficiency normocytic anemia. 18. Escherichia coli urinary tract infection with proteinuria, hematuria, bacteriuria and pyuria. 19. Sepsis secondary to Escherichia coli urinary tract infection. 20. Mild aortic stenosis. 21. Moderate aortic regurgitation, moderate mitral regurgitation and mild tricuspid regurgitation. 22. History of anxiety disorder, history of dementia, history of hypovitaminosis D and hyperuricemia. 1. Acute renal failure. 2. Questionable sepsis with leukocytosis, granulocytosis. 3. Normocytic anemia. 4. Hypertension. 5. History of dementia. 6. Leukocytosis with granulocytosis. 7. Normocytic anemia. 8. Transient hypernatremia. 9. Acute kidney injury and acute renal failure (resolving). 10. Severe gait dysfunction, deconditioning and possible functional quadriplegia. 11. Hyperuricemia. 12. Transaminitis. 13. Hyperprocalcitoninemia. 14. Hypovitaminosis D. 15. Acute renal failure and acute kidney injury. 16. Escherichia coli urinary tract infection with hematuria, pyuria, bacteriuria. 17. Systemic inflammatory response syndrome with possible sepsis secondary to Escherichia coli urinary tract infection with ____vaginal and ____ fistula. 18. Prerenal azotemia. 19. Chronic kidney disease, stage, IIIB, nonproteinuric. 20. Severe deconditioning and gait dysfunction. 21. Chronic ____, ____ fistula with Escherichia coli urinary tract infection. 22. Moderate aortic and moderate mitral regurgitation. 23. Mild mitral valve prolapse, calcified aortic valve with mild aortic stenosis and moderate aortic regurgitation and moderate mitral regurgitation and mild tricuspid regurgitation with left ventricular ejection fraction of 55%. 24. Gait dysfunction. 25. Deconditioning 26. Anxiety disorder. 27. Dementia. 28. Hypovitaminosis D. 29. Hyperuricemia. 1. Acute renal failure. 2. Questionable sepsis with leukocytosis and granulocytosis. 3. Normocytic anemia. 4. Questionable hemorrhagic cystitis. 5. Questionable hemorrhagic cystitis with intrinsic mural and perivesicular abnormalities and dependent echogenic material debris in the bladder. 6. Left bundle-branch block and left axis deviation. 7. Left lower lung pleural thickening. 8. Cardiomegaly. 9. Sigmoid diverticulosis. 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 11. 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 12. Status post hysterectomy. 13. Sigmoid diverticulosis. 14. Leukocytosis with granulocytosis. 15. Normocytic anemia. 16. Hyponatremia. 17. Slow-resolving acute renal failure. 18. Hyperuricemia. 19. History of dementia. 20. Deconditioning. 21. Gait dysfunction. 22. Recurrent fall. 23. Questionable functional quadriplegia. 24. Hypovitaminosis D. 25. History of dyslipidemia. 26. History of angina, history of hypertension, history of dementia. 1. Altered mental status, etiology undetermined. 2. Acute renal failure and acute kidney injury and prerenal kidney injury. 3. Questionable and possible urinary tract infection. 4. Recurrent fall and gait dysfunction. 5. History of dementia. 6. Questionable swallowing and feeding dysfunction. 7. Leukocytosis with granulocytosis. 8. Normocytic anemia. 9. Hyperuricemia. 10. Hyperphosphatemia. 11. Transaminitis. 12. Elevated BNP with history of congestive heart failure. 13. Hematuria, pyuria, bacteriuria. 14. Left bundle branch block and left axis deviation. 15. Generalized osteopenia and thoracolumbar spondylosis with old healed left rib fracture. 16. Status post mastectomy for left breast carcinoma. 17. Gait dysfunction. 18. Recurrent falls. 19. 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 20. Questionable cystitis with thickened urinary bladder wall. 21. Questionable echogenic urinary bladder mass. 22. History of dementia. 23. History of hypovitaminosis D, history of anxiety, history of dementia, history of congestive heart failure, history of angina, history of dementia. 24. History of colovesicular and colovaginal fistula. 1. questionable atrial fibrillation with rapid ventricular response. 2. Left anterior hemiblock. 3. Hypertensive cardiovascular disease. 4. Questionable lateral ischemic changes. 1. Asymptomatic intermittent nonsustained ventricular tachycardia. 2. Volume overload. 3. History of dementia, history of depression, history of anxiety, history of Parkinson's disease. 4. Hypovitaminosis D. 5. Hypokalemia. 6. Acute kidney injury. PLAN: At this time, patient has been ordered serial labs. Out of bed to chair. CURRENT CONSULTATIONS: Cardiology, nephrology, infectious disease, urology, surgery. The patient's case is referred to transitional care unit. CURRENT MEDICATIONS: 1. Ativan 0.5 mg twice a day. 2. Cardizem 30 mg 3 times a day. 3. Coreg 12.5 mg twice a day. 4. Dilaudid 0.5 mg IV q. 4. 5. Exelon 4.5 mg capsule twice a day. 6. Flagyl 500 p.o. q. 8. 7. Heparin 5000 subQ q. 12. 6. Selenium 200 mcg daily. 7. Imdur 30 mg daily. 8. Klonopin 4 mg at bedtime. 10. The patient's Imdur will be discontinued because of transient hypotension. 10. Lasix 20 mg IV daily. 11. Cefepime 1 gram IV q. 12. 12. Protonix 40 mg daily. 13. Requip 8 mg daily. 14. Vitamin D3 2000 units daily. 15. Xopenex 0.63 mg q. 6 hours. 16. The patient's Coreg is decreased to 6.25 mg twice a day because of atrial fibrillation with intermittent slow ventricular response. ADDENDUM TO IMPRESSION: PLAN: The patient is followed by above subspecialty. Current medications are revised. The patient's Dilaudid will be continued as needed. The patient's condition, diagnosis, overall medical condition discussed and explained to the patient's at bedside. We are awaiting for a physical therapy evaluation. The patient was seen by physical therapist on 11/16/2016. Their recommendation was subacute rehab, transitional care unit. The patient may require longer than 8 days. Dictated and electronically signed; not read. Rigo Mukesh Vargas MD cc: [id number] TT: 11/17/2016 12:33:19 Confirmation # [id number] Dictation # [id number] [id number]
[2016-11-17 16:40] LABS: ARTERIAL BLOOD GAS HCO3 14.4 mmol/L (21-28); ARTERIAL BLOOD GAS O2 CAPACITY 15.7 mL/dl (16-24); ARTERIAL BLOOD GAS PH 7.29 (7.35-7.45); ARTERIAL BLOOD HGB O2 SAT 88.1 % (95.0-98.0); CARBOXYHEMOGLOBIN 1.1 % (0.5-1.5); HHB 10.6 % (0-5); METHEMOGLOBIN 0.2 % (0.0-3.0)
[2016-11-17 16:45] LABS: HEMATOCRIT 36.8 % (36.0-48.0); MEAN CELL VOLUME 100.8 fL (80.0-105.0); MEAN CORPUSCULAR HEMOGLOBIN 31.8 pg (25.0-35.0); MEAN CORPUSCULAR HGB CONC 31.5 g/dl (31.0-37.0); MEAN PLATELET VOLUME 9.9 fl (7.0-11.0); RED CELL DISTRIBUTION WIDTH 20.6 % (11.5-14.5); WHITE BLOOD COUNT 10.8 10^3/ul (4.5-11.0)
[2016-11-17 16:48] LABS: VENOUS BLOOD GAS BASE EXCESS -10.6 mmol/L (0.0-2.0); VENOUS BLOOD PH 7.28 (7.32-7.43)
[2016-11-17 16:58] LABS: ALB/GLOB RATIO 0.8 (1.1-1.8); BILIRUBIN,TOTAL 0.5 mg/dL (0.2-1.3); CALCIUM 7.9 mg/dL (8.4-10.5); POTASSIUM 4.6 mmol/L (3.6-5.0); TOTAL PROTEIN 6.5 g/dL (5.8-8.3)
[2016-11-17 17:10] LABS: TROPONIN I 0.02 ng/mL
[2016-11-17 17:12] LABS: INR 1.36 (0.93-1.08); PARTIAL THROMBOPLASTIN TIME 24.4 Seconds (23.7-30.8)
--- NOTE | 2016-11-17 17:15 | CP.PCM.PN ---
<Adriano Mendez - Last Filed: 11/17/16 20:33> Subjective - Date & Time of Evaluation Date of Evaluation: 11/17/16 Time of Evaluation: 15:56 - Subjective Subjective: Rapid Response called at 3:56pm Per nursing staff, patient was out of bed to chair and was transitioned to her bed. Upon getting into bed, patient became unresponsive for approximately 30 seconds and pulses were not palpable. Rapid response was subsequently called. On evaluation, patient's vitals were as follows: temperature: 97.2F, blood pressure 116/62, heart rate 40bpm, respiratory rate 12, O2 saturation 86% on room air. Patient was alert and oriented to person and place. She responded to questions appropriately however could not recall what happened to her. Repeat O2 saturation was 94% on 2LNC. Patient was immediately placed on the monitor, an EKG was done, CXR and Head CT were ordered as well as stat labs. EKG revealed sinus bradycardia with no acute ST-T wave changes. ICU consult was placed and evaluated by the pets salesperson, Dr. Gray. Patient family was at bedside and an extensive discussion was had between the pets salesperson and family. Patient's family subsequently requested for her to be DNR/DNI. Patient pending transfer to telemetry for closer observation. Objective - Vital Signs/Intake and Output Vital Signs (last 24 hours): Temp Pulse Resp BP Pulse Ox 97.2 F L 60 18 82/32 L 100 11/17/16 16:00 11/17/16 16:00 11/17/16 16:00 11/17/16 16:00 11/17/16 16:00 Intake and Output: 11/17/16 11/17/16 06:59 18:59 Intake Total 0 540 Output Total 525 650 Balance -525 -110 - Medications Medications: Current Medications Apixaban (Eliquis) 2.5 mg PO BID [facility] PRN Reason: Protocol Cholecalciferol (Vitamin D) 2,000 iu PO DAILY [facility] Last Admin: 11/17/16 09:47 Dose: 2,000 iu Clonazepam (Klonopin) 4 mg PO HS [facility] PRN Reason: Protocol Last Admin: 11/16/16 22:19 Dose: 4 mg Furosemide (Lasix) 20 mg IVP Q12H [facility] Home Med (Home Med) 1 unit PO DAILY [facility] Last Admin: 11/17/16 09:46 Dose: 1 unit Cefepime HCl (Maxipime 1gm) 100 mls @ 100 mls/hr IVPB Q12 [facility] PRN Reason: Protocol Stop: 11/21/16 22:01 Last Admin: 11/17/16 09:48 Dose: 100 mls/hr Dextrose (Dextrose 5% In Water 1000 Ml) 1,000 mls @ 50 mls/hr IV .Q20H [facility] Levalbuterol HCl (Xopenex) 0.63 mg IH [id number] [facility] Last Admin: 11/17/16 13:54 Dose: 0.63 mg Lorazepam (Ativan) 0.5 mg PO BID [facility] PRN Reason: Protocol Last Admin: 11/17/16 09:47 Dose: 0.5 mg Metronidazole (Flagyl) 500 mg PO Q8 [facility] PRN Reason: Protocol Last Admin: 11/17/16 14:09 Dose: 500 mg Pantoprazole Sodium (Protonix Ec Tab) 40 mg PO 0630 [facility] Last Admin: 11/17/16 05:32 Dose: 40 mg Potassium Chloride (Klor-Con 10) 10 meq PO BID [facility] Stop: 11/18/16 08:00 Last Admin: 11/17/16 09:48 Dose: 10 meq Rivastigmine (Exelon Cap) 4.5 mg PO 0800,1800 [facility] Last Admin: 11/17/16 09:48 Dose: 4.5 mg Ropinirole HCl (Requip) 8 mg PO 0800 [facility] Last Admin: 11/17/16 09:46 Dose: 8 mg Tramadol HCl (Ultram) 50 mg PO Q12 PRN PRN Reason: MOD PAIN Tramadol HCl (Ultram) 50 mg PO Q12 PRN PRN Reason: Pain, moderate (4-7) - Labs Labs: 11/17/16 16:40 11/17/16 01:45 PT 13.0 Seconds (9.9-11.8) H 11/17/16 01:45 INR 1.20 (0.93-1.08) H 11/17/16 01:45 APTT 29.0 Seconds (23.7-30.8) 11/17/16 01:45 - Constitutional Appears: In Acute Distress, Chronically Ill - Head Exam Head Exam: ATRAUMATIC, NORMAL INSPECTION, NORMOCEPHALIC - Eye Exam Eye Exam: EOMI - Respiratory Exam Respiratory Exam: Decreased Breath Sounds. absent: Rales, Rhonchi, Wheezes - Cardiovascular Exam Cardiovascular Exam: Bradycardia, +S1, +S2. absent: Clicks, Gallop, RRR, Rubs - GI/Abdominal Exam GI & Abdominal Exam: Soft. absent: Distended, Firm, Guarding, Rigid, Tenderness , Rebound Additional comments: colostomy bag, site was clean, dry and intact - Neurological Exam Neurological Exam: Alert, Awake - Psychiatric Exam Psychiatric exam: Normal Affect, Normal Mood - Skin Skin Exam: Dry, Intact, Normal Color, Warm Assessment and Plan - Assessment and Plan (Free Text) Plan: 81yo female w/ history of CKD, CHF, parkinson's disease for which rapid response was called for becoming unresponsive post transition from chair to bed. 1. Syncope -Possibly secondary to tachybrady arrhythmia vs vasovagal syncope -Stat Head CT ordered -CXR and EKG reviewed -Labs ordered: CBC, CMP, ABG, PT/PTT, Troponin, BNP, blood cultures -Vitals reviewed -ICU consulted - Dr. Gray -Post extensive discussion between pets salesperson and family, patient's family requested DNR/DNI -Patient was alert and oriented to person and place. She was hemodynamically stable. She was transferred to telemetry for further evaluation and treatment. Case discussed with attending, Dr. Mckay <Libertad Mckay - Last Filed: 11/17/16 20:56> Objective - Vital Signs/Intake and Output Vital Signs (last 24 hours): Temp Pulse Resp BP Pulse Ox 98.5 F 56 L 18 96/52 L 92 L 11/17/16 17:56 11/17/16 18:00 11/17/16 17:56 11/17/16 17:56 11/17/16 17:56 Intake and Output: 11/17/16 11/18/16 18:59 06:59 Intake Total 540 Output Total 650 Balance -110 - Medications Medications: Current Medications Apixaban (Eliquis) 2.5 mg PO BID [facility] PRN Reason: Protocol Last Admin: 11/17/16 19:44 Dose: 2.5 mg Cholecalciferol (Vitamin D) 2,000 iu PO DAILY [facility] Last Admin: 11/17/16 09:47 Dose: 2,000 iu Clonazepam (Klonopin) 4 mg PO HS [facility] PRN Reason: Protocol Last Admin: 11/16/16 22:19 Dose: 4 mg Furosemide (Lasix) 20 mg IVP Q12H [facility] Home Med (Home Med) 1 unit PO DAILY [facility] Last Admin: 11/17/16 09:46 Dose: 1 unit Cefepime HCl (Maxipime 1gm) 100 mls @ 100 mls/hr IVPB Q12 [facility] PRN Reason: Protocol Stop: 11/21/16 22:01 Last Admin: 11/17/16 09:48 Dose: 100 mls/hr Levalbuterol HCl (Xopenex) 0.63 mg IH [id number] [facility] Last Admin: 11/17/16 20:18 Dose: 0.63 mg Lorazepam (Ativan) 0.5 mg PO BID [facility] PRN Reason: Protocol Last Admin: 11/17/16 09:47 Dose: 0.5 mg Metronidazole (Flagyl) 500 mg PO Q8 [facility] PRN Reason: Protocol Last Admin: 11/17/16 14:09 Dose: 500 mg Pantoprazole Sodium (Protonix Ec Tab) 40 mg PO 0630 [facility] Last Admin: 11/17/16 05:32 Dose: 40 mg Potassium Chloride (Klor-Con 10) 10 meq PO BID [facility] Stop: 11/18/16 08:00 Last Admin: 11/17/16 19:44 Dose: 10 meq Rivastigmine (Exelon Cap) 4.5 mg PO 0800,1800 [facility] Last Admin: 11/17/16 19:44 Dose: 4.5 mg Ropinirole HCl (Requip) 8 mg PO 0800 [facility] Last Admin: 11/17/16 09:46 Dose: 8 mg Tramadol HCl (Ultram) 50 mg PO Q12 PRN PRN Reason: MOD PAIN Tramadol HCl (Ultram) 50 mg PO Q12 PRN PRN Reason: Pain, moderate (4-7) - Labs Labs: 11/17/16 16:40 11/17/16 16:40 PT 14.7 Seconds (9.9-11.8) H 11/17/16 16:40 INR 1.36 (0.93-1.08) H 11/17/16 16:40 APTT 24.4 Seconds (23.7-30.8) 11/17/16 16:40 Attending/Attestation - Attestation I have personally seen and examined this patient.: Yes I have fully participated in the care of the patient.: Yes I have reviewed all pertinent clinical information, including history, physical exam and plan: Yes Notes (Text): 11/17/16 20:51 As per discussion with Dr Vargas and Dr Gray pt was transferred to a telemetry bed.
--- NOTE | 2016-11-17 17:30 | CT ---
PROCEDURE: CT HEAD WITHOUT CONTRAST. HISTORY: ams COMPARISON: Noncontrast head CT performed 10/29/16 TECHNIQUE: Axial computed tomography images were obtained through the head/brain without intravenous contrast. Radiation dose: Total exam DLP = 809.21 mGy-cm. This CT exam was performed using one or more of the following dose reduction techniques: Automated exposure control, adjustment of the mA and/or kV according to patient size, and/or use of iterative reconstruction technique. FINDINGS: Images were obtained with the patient in an oblique position. HEMORRHAGE: No intracranial hemorrhage. BRAIN: Diffuse atrophy with prominence of the ventricles and sulci noted. No mass effect or edema. Intracranial atherosclerotic calcifications. Scattered periventricular and subcortical white matter hypodensities, which are nonspecific, but often seen with chronic microvascular ischemic disease. Please note that MRI with diffusion imaging is more sensitive in the detection of acute ischemic event. VENTRICLES: No hydrocephalus. CALVARIUM: Unremarkable. PARANASAL SINUSES: Unremarkable as visualized. No significant inflammatory changes. MASTOID AIR CELLS: Unremarkable as visualized. No inflammatory changes. OTHER FINDINGS: None. IMPRESSION: Generalized atrophy. Nonspecific white matter changes.
--- NOTE | 2016-11-17 17:55 | RAD ---
HISTORY: sob COMPARISON: Comparison is made to the previous study dated 11/17/2016 at 8:41 FINDINGS: LUNGS: No significant interval change in the lungs since the previous exam. PLEURA: Bilateral small pleural effusions seen. CARDIOVASCULAR: The cardiac silhouette is enlarged. OSSEOUS STRUCTURES: No significant abnormalities. VISUALIZED UPPER ABDOMEN: Normal. OTHER FINDINGS: Postsurgical changes are again seen overlying the left chest. IMPRESSION: Overall no significant interval change compared to the previous same-day exam. Opacities at the lung bases. Small pleural effusions.
--- NOTE | 2016-11-17 18:37 | CP.PCM.PN ---
Subjective - Date & Time of Evaluation Date of Evaluation: 11/17/16 Time of Evaluation: 10:45 - Subjective Subjective: Patient noted to have CHF and is improving with lasix - however, she has gone back to atrial fibrillation. No fevers, more awake today compared to previous days. Objective - Vital Signs/Intake and Output Vital Signs (last 24 hours): Temp Pulse Resp BP Pulse Ox 98.5 F 56 L 18 96/52 L 92 L 11/17/16 17:56 11/17/16 18:00 11/17/16 17:56 11/17/16 17:56 11/17/16 17:56 Intake and Output: 11/17/16 11/17/16 06:59 18:59 Intake Total 0 540 Output Total 525 650 Balance -525 -110 - Medications Medications: Current Medications Apixaban (Eliquis) 2.5 mg PO BID [facility] PRN Reason: Protocol Cholecalciferol (Vitamin D) 2,000 iu PO DAILY [facility] Last Admin: 11/17/16 09:47 Dose: 2,000 iu Clonazepam (Klonopin) 4 mg PO HS [facility] PRN Reason: Protocol Last Admin: 11/16/16 22:19 Dose: 4 mg Furosemide (Lasix) 20 mg IVP Q12H [facility] Home Med (Home Med) 1 unit PO DAILY [facility] Last Admin: 11/17/16 09:46 Dose: 1 unit Cefepime HCl (Maxipime 1gm) 100 mls @ 100 mls/hr IVPB Q12 [facility] PRN Reason: Protocol Stop: 11/21/16 22:01 Last Admin: 11/17/16 09:48 Dose: 100 mls/hr Dextrose (Dextrose 5% In Water 1000 Ml) 1,000 mls @ 50 mls/hr IV .Q20H [facility] Levalbuterol HCl (Xopenex) 0.63 mg IH Q2RQGRI [facility] Last Admin: 11/17/16 13:54 Dose: 0.63 mg Lorazepam (Ativan) 0.5 mg PO BID [facility] PRN Reason: Protocol Last Admin: 11/17/16 09:47 Dose: 0.5 mg Metronidazole (Flagyl) 500 mg PO Q8 [facility] PRN Reason: Protocol Last Admin: 11/17/16 14:09 Dose: 500 mg Pantoprazole Sodium (Protonix Ec Tab) 40 mg PO 0630 [facility] Last Admin: 11/17/16 05:32 Dose: 40 mg Potassium Chloride (Klor-Con 10) 10 meq PO BID [facility] Stop: 11/18/16 08:00 Last Admin: 11/17/16 09:48 Dose: 10 meq Rivastigmine (Exelon Cap) 4.5 mg PO 0800,1800 [facility] Last Admin: 11/17/16 09:48 Dose: 4.5 mg Ropinirole HCl (Requip) 8 mg PO 0800 [facility] Last Admin: 11/17/16 09:46 Dose: 8 mg Tramadol HCl (Ultram) 50 mg PO Q12 PRN PRN Reason: MOD PAIN Tramadol HCl (Ultram) 50 mg PO Q12 PRN PRN Reason: Pain, moderate (4-7) - Labs Labs: 11/17/16 16:40 11/17/16 16:40 PT 14.7 Seconds (9.9-11.8) H 11/17/16 16:40 INR 1.36 (0.93-1.08) H 11/17/16 16:40 APTT 24.4 Seconds (23.7-30.8) 11/17/16 16:40 - Constitutional Appears: Non-toxic, No Acute Distress - Head Exam Head Exam: NORMAL INSPECTION - Neck Exam Neck Exam: absent: Meningismus - Respiratory Exam Respiratory Exam: Decreased Breath Sounds - Cardiovascular Exam Cardiovascular Exam: +S1, +S2 - GI/Abdominal Exam GI & Abdominal Exam: Soft. 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
--- NOTE | 2016-11-17 18:55 | CON ---
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 The patient was managed on remote telemetry and had episodes of paroxysmal atrial fibrillation that were treated with intermittent beta blockers. Today, the patient went to bathroom and appeared to pass out after extra dose of Coreg was given. Telemetry noted several-second pauses coinciding with the episode. Possibility of symptomatic bradycardia was raised and she was consulted for further recommendations. No nausea, no vomiting, no diarrhea, no constipation. On presentation today, the patient is alert and awake, appears to be weak; however, maintaining ventilation okay and requiring only 2 to 3 liters of nasal cannula with oxygen saturation 93%. PAST MEDICAL HISTORY: CHF, status post colostomy for rectovaginal and rectourethral fistula. Parkinson disease. ALLERGIES: NKDA. FAMILY HISTORY: Noncontributory. SOCIAL HISTORY: No alcohol or illicit drug abuse. No tobacco smoking. CURRENT MEDICATIONS: Xopenex every 6 hours, Ativan per hour, Eliquis, rivastigmine, Flagyl, Klonopin, Lasix 20 mg IV q. 12 hours, cefepime, Protonix, Requip, tramadol, Vitamin D. REVIEW OF SYSTEMS: Revealed 12 organ system other than mentioned in history of present illness is negative. PHYSICAL EXAMINATION: VITAL SIGNS: Blood pressure 120/60, temperature 97.2, respiratory rate 18, oxygen saturation 93% on 3 liters nasal cannula, respiratory rate 18. HEAD AND NECK: Atraumatic. LUNGS: Decreased breath sounds bilaterally. HEART: Regular rate and rhythm. S1, S2 are distant. ABDOMEN: Soft, nontender, nondistended. MUSCULOSKELETAL: Trace bilateral pedal and ankle edema. NEUROLOGIC: The patient moves all extremities spontaneously. SKIN: Moist. PSYCHIATRIC: The patient is alert and oriented x 3. LABORATORY DATA: WBC 10.8, hemoglobin 11.6, platelet count 473. Sodium 142, potassium 4.6, chloride 116, BUN 32, creatinine 1.5, glucose 216. INR 1.36. ABG today showed 7.29/30/16. Lactate 3.1. CT of the head: No acute intracranial pathology. ASSESSMENT AND PLAN: This is an 81-year-old lady with likely episode of symptomatic bradycardia due to pause evident on telemetry. That was resolved, beta blockers stopped. The patient is not on any negative chronotropic medications at present time. Heart rate is 56 and blood pressure within normal limits. She is alert and oriented x 3. She is slightly acidotic with pH 7.29 and even though it appears that most of it is metabolic, we will proceed with short term BiPAP support for decreasing respiratory muscle workload. I was approached by the patient's and son and notified about the patient's wishes that were previously communicated to them to be a DNR/DNI. The risk and benefits of this decision discussed with them and they were already aware about them. They reiterated their desire to proceed with DNR/DNI at the present time. Their wishes will be honored. At present time, the patient would benefit from continued telemetry monitoring. Dr. Peoples was notified and agreed with current management and abstaining from negative chronotropic medication. PMD was notified as well. I would recommend to continue to target euvolemia, euglycemia and oxygen saturation more than 90%. Continue with GI prophylaxis and therapeutic anticoagulation for paroxysmal atrial fibrillation. No need for MICU at the present time. Please call for reevaluation and reconsultation in case if any additional questions arise. Bedrest for next 24 hrs ccm time 40 min Panfilo Gray MD cc: [id number] TT: 11/17/2016 18:54:49 Confirmation # [id number] Dictation # [id number] ln MTDD
--- NOTE | 2016-11-17 20:17 | PN ---
DATE: 11/17/2016 HISTORY OF PRESENT ILLNESS: An 81-year-old female with past medical history of , CHF, CKD, recto vesical/rectovaginal fistulas, who was admitted with UTI sepsis secondary to rectovesical fistula sta tus post loop colostomy procedure done 3 days ago. The patient seen this afternoon prior to a rapid response being called for patient with a brief period of being unresponsive after being moved from ch air to bed. The patient this afternoon reported feeling well, tolerating diet. Denied any pain or s hortness of breath. PHYSICAL EXAMINATION: VITAL SIGNS: This afternoon after patient was seen, blood pressure 82/32, heart rate of 60, respirat ions 18, temperature 97.2, O2 sat 92% on nasal cannula. GENERAL: No distress. The patient is sitting up in chair, speaking coherently. HEENT: Moist mucous membranes. No scleral icterus. CHEST: Decreased breath sounds at bilateral bases. Otherwise no rales, no rhonchi, no wheezes. HEART: Irregular rate. No murmurs. ABDOMEN: Soft, nontender. Ostomy present. EXTREMITIES: Mild lower leg bilateral edema. LABORATORY DATA: Done this afternoon. CBC: WBC 10.8, hemoglobin 11.6, hematocrit 36.8, platelets 4 73. Chemistry: Sodium 142, potassium 4.6, chloride 116, bicarbonate 14, BUN 32, creatinine 1.5, glu cose 268, calcium 7.9, albumin 2.9. Venous blood gas: pH 7.28, pCO2 32, bicarbonate 15, lactate 3.1. ASSESSMENT: 1. Acute renal failure on chronic kidney disease. Serum creatinine increasing from 1.2 to 1.5 toda y in the setting of hypotension and now elevated lactate level. Too early to tell whether this is a p rerenal etiology in the setting of decreased renal perfusion due to hypotension or whether there is a n element of acute tubular necrosis. The patient has bilateral pleural effusions that are seen again on chest x-ray today and O2 saturation that is borderline. The patient also made DNR/DNI this aftern oon; therefore, in this setting, cannot give trial of volume resuscitation. Recommend to hold diuresi s unless systolic blood pressure is maintained above 110. Need to maintain mean arterial pressure ab ove 65, avoid nephrotoxic insults. 2. Systemic inflammatory response syndrome/sepsis. Leukocytosis resolved with patient on broad-spec trum antibiotics in the setting of rectovesical fistula and overt stool in Ramirez bag. Would consider decreasing frequency of cefepime to 1 gram q. 24 hours as patient is in acute renal failure and like ly has creatinine clearance that is actually less than 30 mL per minute. 3. Rectovesical fistula. The patient is status post loop colostomy to prevent further seepage of st ool into urinary tract. Continue antibiotics for now for any residual stool, but may still seep into bladder. 4. Congestive heart failure, bilateral pleural effusions seen on CT as well as chest x-ray. Also wi th new onset of atrial fibrillation, which is contributing to hypotension. Heart rate currently cont rolled today as patient was receiving Coreg and Cardizem prior to rapid response and hypotension. Ho ld diuretics for now as the patient remains hypotensive. Follow up with cardiology for optimum meds for rate control. 5. Hypernatremia, improved. Will hold off on giving any additional free water for now. 6. Lactic acidosis. Lactate mildly increased at 3.1 with the patient having moderate metabolic acid osis. Would continue to treat for sepsis with antibiotics, follow up repeat blood cultures. If lact ate worsens, need to look for possible source of ischemia with additional imaging. Wally Ash MD cc: [id number] TT: 11/17/2016 20:17:02 Confirmation # [id number] Dictation # [id number] ln
[2016-11-18] MEDS: Levalbuterol 0.63 MG/3 ML Inhal Soln UD IH SCH ×4 (01:05→19:46)
[2016-11-18 06:34] LABS: INR 1.27 (0.93-1.08); PARTIAL THROMBOPLASTIN TIME 29.3 Seconds (23.7-30.8)
[2016-11-18 06:52] LABS: ADD MANUAL DIFF? NO
[2016-11-18 07:03] LABS: BASO # 0.02 K/mm3 (0.0-2.0); BASO % 0.2 % (0.0-3.0); EOS % 0.1 % (1.5-5.0); GRAN # 7.59 (1.4-6.5); GRAN % 68.5 % (50.0-68.0); HEMATOCRIT 41.6 % (36.0-48.0); LYMPH # 2.6 (1.2-3.4); LYMPH % 23.6 % (22.0-35.0); MEAN CELL VOLUME 101.2 fL (80.0-105.0); MEAN CORPUSCULAR HEMOGLOBIN 31.1 pg (25.0-35.0); MEAN CORPUSCULAR HGB CONC 30.8 g/dl (31.0-37.0); MEAN PLATELET VOLUME 10.3 fl (7.0-11.0); MONO # 0.8 (0.1-0.6); MONO % 7.6 % (1.0-6.0); PLATELET COUNT 432 10^3/uL (120.0-450.0); RED CELL DISTRIBUTION WIDTH 21.4 % (11.5-14.5); WHITE BLOOD COUNT 11.1 10^3/ul (4.5-11.0)
--- NOTE | 2016-11-18 08:34 | CP.PCM.PN ---
Subjective - Date & Time of Evaluation Date of Evaluation: 11/18/16 Time of Evaluation: 06:31 - Subjective Subjective: General Surgery Progress Note for Dr. Alfredo This 81F was seen and examined this morning at bedside. Yesterday afternoon a rapid response was called on the patient when she became unresponsive while being cleaned by the nurse. The nurse reported an estimated 30 seconds of pulselessness. The patient was put on a monitor and where her heart rate changed between 30-60 bmp. EKG showed no similar changes from prior EKG, head CT showed no acute changes, pt was slighly acidotoic. Today patient appears better, she is verbal and aware. She denies chest pain, SOB, abdominal pain. She has no new complaints at this time. Objective - Vital Signs/Intake and Output Vital Signs (last 24 hours): Temp Pulse Resp BP Pulse Ox 98.7 F 59 L 18 116/59 L 92 L 11/18/16 00:00 11/18/16 02:00 11/18/16 00:00 11/18/16 00:00 11/17/16 17:56 Intake and Output: 11/18/16 11/18/16 06:59 18:59 Intake Total 120 Balance 120 - Medications Medications: Current Medications Apixaban (Eliquis) 2.5 mg PO BID BETHEL PRN Reason: Protocol Last Admin: 11/17/16 19:44 Dose: 2.5 mg Cholecalciferol (Vitamin D) 2,000 iu PO DAILY [facility] Last Admin: 11/17/16 09:47 Dose: 2,000 iu Clonazepam (Klonopin) 4 mg PO HS BETHEL PRN Reason: Protocol Last Admin: 11/17/16 22:39 Dose: 4 mg Furosemide (Lasix) 20 mg IVP Q12H BETHEL Last Admin: 11/17/16 22:38 Dose: 20 mg Home Med (Home Med) 1 unit PO DAILY [facility] Last Admin: 11/17/16 09:46 Dose: 1 unit Cefepime HCl (Maxipime 1gm) 100 mls @ 100 mls/hr IVPB Q12 BETHEL PRN Reason: Protocol Stop: 11/21/16 22:01 Last Admin: 11/17/16 22:40 Dose: 100 mls/hr Levalbuterol HCl (Xopenex) 0.63 mg IH [id number] [facility] Last Admin: 11/18/16 07:55 Dose: 0.63 mg Lorazepam (Ativan) 0.5 mg PO BID [facility] PRN Reason: Protocol Last Admin: 11/17/16 09:47 Dose: 0.5 mg Metronidazole (Flagyl) 500 mg PO Q8 [facility] PRN Reason: Protocol Last Admin: 11/17/16 22:38 Dose: 500 mg Pantoprazole Sodium (Protonix Ec Tab) 40 mg PO 0630 [facility] Last Admin: 11/17/16 05:32 Dose: 40 mg Rivastigmine (Exelon Cap) 4.5 mg PO 0800,1800 [facility] Last Admin: 11/17/16 19:44 Dose: 4.5 mg Ropinirole HCl (Requip) 8 mg PO 0800 [facility] Last Admin: 11/17/16 09:46 Dose: 8 mg Tramadol HCl (Ultram) 50 mg PO Q12 PRN PRN Reason: MOD PAIN Tramadol HCl (Ultram) 50 mg PO Q12 PRN PRN Reason: Pain, moderate (4-7) - Labs Labs: 11/18/16 06:05 11/17/16 16:40 PT 13.7 Seconds (9.9-11.8) H 11/18/16 05:00 INR 1.27 (0.93-1.08) H 11/18/16 05:00 APTT 29.3 Seconds (23.7-30.8) 11/18/16 05:00 - Constitutional Appears: Non-toxic, No Acute Distress - Head Exam Head Exam: ATRAUMATIC, NORMOCEPHALIC - Eye Exam Eye Exam: EOMI, Normal appearance - ENT Exam ENT Exam: Mucous Membranes Moist, Normal Exam - Respiratory Exam Respiratory Exam: NORMAL BREATHING PATTERN - Cardiovascular Exam Cardiovascular Exam: +S1, +S2 - GI/Abdominal Exam GI & Abdominal Exam: Soft. absent: Distended, Firm, Guarding, Rigid, Tenderness Additional comments: Stoma, pink patent edmatous, with 100ml output documented over 24hrs Assessment and Plan - Assessment and Plan (Free Text) Assessment: 81yo F with Rectal vesiculo fistula, Rectal vaginal fistula. S/p diverting loop colostomy on 11/14. Replace 16Fr power with at least a 20F power if it clogs or gets removed. Cont abx as per ID Advance as tolerated monitor ostomy and power output D/W Dr. Juni Whitten PGY1
[2016-11-18 09:12] LABS: ALB/GLOB RATIO 0.8 (1.1-1.8); BILIRUBIN,DIRECT 0.5 mg/dL (0.0-0.4); BILIRUBIN,TOTAL 0.5 mg/dL (0.2-1.3); CALCIUM 8.2 mg/dL (8.4-10.5); TOTAL PROTEIN 6.9 g/dL (5.8-8.3)
[2016-11-18] MEDS: Cefepime 1gm in NS 100ml 100 ML IVPB SCH ×2 (10:07→23:11)
[2016-11-18] MEDS: SELENIUM 200 MCG PO SCH (10:08)
--- NOTE | 2016-11-18 10:57 | PN ---
DATE: 11/18/2016 REASON FOR CONSULTATION AND FOLLOWUP: Atrial fibrillation, status post rapid response, asystole, syn cope, status post colostomy, moved to telemetry. Aortic stenosis. BRIEF CLINICAL HISTORY An 81-year-old female with recent history of recurrent sepsis secondary to col ovesical, colovaginal fistula, episode of atrial fibrillation converted to normal sinus, status post colostomy, who was in 3R, went to the bathroom, had suddenly mai episode and syncope. Telemetry mo nitor shows long pause, possibly asystole. The patient returned back to normal. Last night also a 5 .8 second pause. The patient was earlier on beta juan alberto, possibly Coreg which was held. Since then , the patient is in normal sinus, seen at the bedside in telemetry with at the bedside, expla ined the patient's condition. He is completely aware of who made the patient DNR/DNI. Now, the franklyn ent is awake, alert. Denies any chest pain, shortness of breath, any palpitation. PHYSICAL EXAMINATION: VITAL SIGNS: Temperature afebrile, heart rate 56, blood pressure 116/59. HEENT: PERRLA. Extraocular muscles intact. NECK: Supple. No carotid bruits. No thyromegaly. CHEST: Clear to auscultation. HEART: S1, S2 regular. ABDOMEN: Soft. EXTREMITIES: Clubbing and cyanosis negative. LABORATORY DATA: Blood workup as follows: WBC 11.1, hemoglobin 12.8, hematocrit 41.6, platelet coun t 432. Chemistry shows sodium 147, potassium 5, chloride 106, carbon dioxide 18, anion gap of 18, BU N 40, creatinine 1.8.: IMPRESSION: Status post asystole, status post syncope, sick sinus syndrome, tachybrady syndrome, par oxysmal atrial fibrillation, colovesical fistula, colovaginal fistula, status post colostomy for heal ing, Parkinson disease, aortic stenosis, Left bundle branch block, moderate aortic regurgitation, mo derate mitral regurgitation, mild tricuspid regurgitation, ejection fraction 55%, hypertension, hyper lipidemia, renal insufficiency. RECOMMENDATION: The patient was earlier on Cardizem, atenolol. We will hold rate limiting calcium c hannel juan alberto. Avoid beta juan alberto. Monitor in telemetry. We will put Holter monitor. Discussed w ith the regarding pacemaker. He wanted to do the patient is a DNR/DNI. We will monitor clos ever. Most likely will get the benefit of doubt after watching period for beta juan alberto 24-48 hours. Last dose was given yesterday, so start tomorrow. If the patient continues to have pauses, then we w ill discuss again with the for pacemaker versus leave it as a DNR/DNI. We will follow with hernan ibarra. Thank you, Dr. Vargas, for providing us the opportunity in taking care of the patient. So far, the pa tient is hemodynamically stable. Heart rate is 58. No evidence of further arrhythmia noted or mai arrhythmia noted, though yesterday, patient had asystole for 12 seconds and last night, had a 5.8 sec ond pause. Bishop Jose MD cc: [id number] TT: 11/18/2016 10:56:25 Confirmation # [id number] Dictation # [id number] tn
--- NOTE | 2016-11-18 11:23 | CARD ---
APPROVED REPORT EKG Measurement Heart [id number] <Conclusion> Sinus bradycardia with 1st degree AV block Left axis deviation Left bundle branch block Abnormal ECG
--- NOTE | 2016-11-18 11:28 | CARD ---
APPROVED REPORT EKG Measurement Heart [id number] <Conclusion> Sinus rhythm with occasional premature ventricular complexes and premature atrial complexes Left axis deviation Left bundle branch block Abnormal ECG
--- NOTE | 2016-11-18 12:32 | CP.PCM.PCO ---
Physician Communication Note - Physician Communication Note Physician Communication Note: Life threatened arrhythmia-OFF meds/Needs Pacer
[2016-11-18] MEDS ORDERED: Levalbuterol 0.63 MG/3 ML Inhal Soln UD IH ONE (12:40)
--- NOTE | 2016-11-18 12:43 | PN ---
DATE: 11/18/2016 The patient is seen in room 262, bed 2. The patient's overnight notes were reviewed. In the last 24 hours, a rapid response was called yesterday for bradycardia and pauses. The patient's telemetry shows pauses. Rapid response was called. The patient was evaluated by real estate assessor. The patient was found to be hypotensive also. The patient was evaluated by real estate assessor yesterday evening and then the patient was transferred to telemetry. The patient is seen today in room 262, bed 1. The patient is lying in the bed with the patient's at bedside. The patient is alert, awake, responsive , does not appear to be in any distress. Telemetry shows paroxysmal atrial fibrillation, paroxysmal bradycardia. PHYSICAL EXAMINATION: VITAL SIGNS: T-max 98.7. Telemetry shows paroxysmal atrial fibrillation with bradycardia, blood pressure 116/59 . In the last 24 hours, blood pressure dropped to 82/32. Respirations 18, O2 sat in the last 24 hours 94, 100 , 192. Intake and output is not documented correctly. HEAD: Normocephalic, atraumatic. HEENT: Shows pinkish conjunctivae, anicteric sclerae. No oropharyngeal lesion. No neck rigidity. CHEST: Kyphosis. Shows decreased breath sounds at the bases, occasional rhonchi upper lung walls. CARDIOVASCULAR: S1, S2, irregular rhythm. Positive systolic murmur right second intercostal space, left sternal border, left second intercostal space. ABDOMEN: Soft. Positive colostomy right-sided, questionable suprapubic fullness noted. Positive Ramirez catheter. EXTREMITIES: Shows positive pitting edema, trace swelling and 1+ pitting edema of the lower extremity. NEUROLOGIC: The patient is alert, awake, responsive. The patient is lying in the bed. The patient's neuro examination is limited. GAIT: Examination could not be tested. ADRIANO stockings are missing despite my multiple orders. MUSCULOSKELETAL: Shows a body mass index of 27. Cranial nerves limited. DIAGNOSTICS: 11/18: WBC 11.1, hemoglobin and hematocrit 12.8, 41.6, platelets 432, granulocytes 68. PT 13.7, INR 1.27. The patient's ABG from yesterday was reviewed. Sodium 147, potassium was 5.0, chloride 116, CO2 18, anion gap 18, BUN up to 40, creatinine 1.8, GFR 33, glucose 119, calcium 8.2, AST 58. BNP 25, 300. Urine culture is now growing Enterococcus faecium 50 to 100,000. Chest x- ray was done yesterday after a rapid response, which shows pleural effusion, cardiomegaly, opacities, pleural effusion. CT of the head shows diffuse cerebral cortical atrophy, prominent ventricles, small vessel microvascular ischemic disease of the brain. EKG was done yesterday, which was reviewed, sinus bradycardia, left anterior hemiblock, left bundle branch block, first degree AV block. IMPRESSION AND PLAN: 1. Status post rapid response. 2. Severe symptomatic bradycardia with cardiac pauses. 3. Possibly beta juan alberto, calcium channel juan alberto induced. 4. Atrial fibrillation with slow ventricular response and pauses. 5. Transient hypotension. 6. Metabolic acidosis. 7. Transient hypotension. 8. Atrial fibrillation with slow ventricular response and pauses and sinus bradycardia. 9. Leukocytosis with granulocytosis. 10. Thrombocytosis. 11. Atrial fibrillation. 12. Hypoxemia. 13. Transient metabolic acidosis. 14. Acute kidney injury with underlying chronic kidney disease stage III/IV. 15 Transaminitis. 16. Possible diastolic congestive heart failure with elevated BNP. 17. Enterococcus faecium urinary tract infection. 18. Bilateral lower lobe infiltrates, effusion and cardiomegaly with congestive heart failure. 19. Enterococcus faecium urinary tract infection. 20. Severe deconditioning and gait dysfunction and possibly functional quadriplegia. 21. Bilateral pleural effusion and cardiomegaly. 22. Atrial fibrillation with slow ventricular response. 23. Sinus bradycardia with first degree AV block and left anterior hemiblock and left bundle branch block. 24. Cerebral cortical atrophy of the brain with ventricular prominence. 25. Chronic microvascular ischemic disease of the brain. 26. 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 27. Status post loop colostomy, postop day #4. 28. Acute kidney injury with underlying chronic kidney disease stage III. 29. History of moderate aortic regurgitation, mild aortic stenosis, moderate mitral regurgitation, mild tricuspid regurgitation. 30. Status post diverting colostomy and loop colostomy. 31. Deconditioning. 32. Gait dysfunction. 1. Volume overload versus questionable diastolic congestive heart failure with bilateral bibasilar infiltrates and effusion and cardiomegaly. 2. Atrial fibrillation. 3. History of hypertension. 4. Leukocytosis with granulocytosis. 5. Normocytic anemia. 6. Transient Hypernatremia. 7. Acute kidney injury with chronic kidney disease, stage III. 8. Hypocalcemia. 9. Hypoalbuminemia. 10. Sepsis. 11. Sepsis with urinary tract infection and colovesicular/colovaginal fistula. 12. Status post loop colostomy, postoperative day 3. 13. Gait dysfunction. 14. Deconditioning. 1. Sepsis, secondary to rectovaginal, rectovesical fistula with inadequate drainage of urine and stool,status post loop colostomy,postop day 2. 2. Questionable lethargy, etiology undetermined. 3. Paroxysmal atrial fibrillation. 4. Leukocytosis with granulocytosis. 5. Normocytic anemia. 6. Transient coagulopathy. 7. Hypernatremia. 8. Hypokalemia. 9. Acute kidney injury with underlying chronic kidney disease stage III with prerenal kidney injury. 10. Hypocalcemia. 11. Mild hypoalbuminemia. 12. Left bundle branch block, left anterior hemiblock 13. Status post loop colostomy, postop day 2. 14. Sepsis, secondary to colovesicular, colovaginal fistula. 15. Encephalopathy. 16. History of anxiety, history of dementia, history of Parkinson disease, history of depression, history of hypovitaminosis D. 1. 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 2. Status post loop colostomy. 3. 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 4. Atrial fibrillation with rapid ventricular response. 5. Left anterior hemiblock. 6. Left bundle branch block. 7. Transient hypotension and bradycardia. 8. Hypernatremia. 9. Acute kidney injury with underlying chronic kidney disease stage III/IV. 10. Indeterminate troponin. 11. Leukocytosis with granulocytosis. 12. Transient coagulopathy. 13. Hyponatremia. 14. Prerenal kidney injury. 15. Severe gait dysfunction and deconditioning. 16. Status post colostomy diversion. 17. Paroxysmal atrial fibrillation converting to normal sinus rhythm with left axis deviation, left anterior hemiblock, left bundle branch block. 18. Urinary retention. 19. History of dementia, Parkinson disease. 20. Transient confusional state. 21. Transient agitation (resolved). 22. Deconditioning. 23. Gait dysfunction. 24. Status post loop colostomy, postop day 1. 25. Deconditioning. 26. Gait dysfunction. 27. Questionable possible functional quadriplegia. 28. History of anxiety. 29. History of dementia. 30. History of Parkinson disease. 31. History of hypovitaminosis D. 1. Sepsis with leukocytosis and granulocytosis. 2. New onset atrial fibrillation with rapid ventricular response and indeterminate troponin. 3. Moderate aortic regurgitation, mild aortic stenosis, moderate mitral regurgitation with left ventricular ejection fraction of 55%. 4. Left anterior hemiblock. 5. Questionable left bundle branch block. 6. Lateral wall ischemic changes on the EKG. 7. Severe deconditioning, gait dysfunction versus questionable and possible functional quadriplegia. 8. Sepsis, secondary to rectovesical and rectovaginal fistula and inadequate drainage of urine and stool. 9. Status post treatment for Escherichia coli urinary tract infection, secondary to rectovesical, rectovaginal fistula. 10. Acute kidney injury. 11. Transient hypotension. 12. History of hypertension. 13. Anemia. 14. Leukocytosis. 15. Normocytic iron deficiency anemia. 16. Mild coagulopathy, secondary to anticoagulation. 17. Hypokalemia. 18. Acute kidney injury with underlying chronic kidney disease stage IV. 19. Hypoalbuminemia. 20. Indeterminate troponin. 21. Hypotension with sepsis and new onset atrial fibrillation with rapid ventricular response. 22. History of Parkinson disease, dementia, history of anxiety, depression, history of hypovitaminosis D. 1. Recurrent urinary retention with urinary bladder distention. 2. Questionable systemic inflammatory response syndrome versus sepsis with low- grade fever of 105, tachycardia 3. Leukocytosis with granulocytosis. 4. Normocytic anemia. 5. Hypokalemia. 6. Acute kidney injury. 7. Mild hypoalbuminemia 8. Severe deconditioning, gait dysfunction and bedridden status with questionable functional quadriplegia. 9. History of dementia, depression, Parkinson's disease, history of hypertension. 10. Hypovitaminosis D. 11. Deconditioning. 1. Recurrent urinary retention with urinary bladder distention. 2. Severe deconditioning and gait dysfunction. 3. Functional quadriplegia with severe deconditioning and gait dysfunction and bedridden status. 4. Small bilateral pleural effusion and bibasilar atelectasis. 5. Questionable sigmoid colitis with mural thickening. 6. Urinary retention with distended urinary bladder with air fluid level. 7. Hypertension. 8. Tachycardia. 9. Leukocytosis with granulocytosis. 10. Questionable systemic inflammatory response syndrome. 11. Normocytic anemia. 12. Acute recurrent kidney injury. 13. 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 14. Normocytic iron deficiency anemia. 15. Chronic kidney disease stage II/III. 1. Severe deconditioning, severe gait dysfunction and possible questionable functional quadriplegia. 2. Urinary retention. 3. Colovesicular and colovaginal fistula. 4. Abdominal distention, probably secondary to urinary retention. 5. Sepsis secondary to Escherichia coli urinary tract infection and colovesicular and colovaginal fistula. 6. Hypertension. 7. Questionable ileus with constipation, fecal retention, fecal stasis. 8. Asymptomatic hypoxemia. 9. Status post acute renal failure. 10. Normocytic iron deficiency anemia. 11. Status post IV Venofer infusion. 12. Leukocytosis with granulocytosis. 13. Status post acute renal failure. 14. Hypocalcemia. 15. Mild hypoalbuminemia. 16. History of anxiety disorder, history of dementia, history of depression, history of Parkinson's disease, hypovitaminosis D. 1. Severe deconditioning and gait dysfunction. 2. Deconditioning. 3. Questionable constipation and fecal retention. 4. Asymptomatic hypoxemia. 5. Leukocytosis with granulocytosis. 6. Normocytic anemia. 7. Prerenal kidney injury. 8. Status post acute renal failure. 9. 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 10. Deconditioning. 11. Gait dysfunction. 12. Sepsis secondary to Escherichia coli urinary tract infection. 13. History of colovesicular colovaginal fistula. 14. Dementia. 15. History of Parkinson disease. 16. History of anxiety disorder. 17. History of constipation. 1. Severe deconditioning and gait dysfunction. 2. Possible functional quadriplegia. 3. Nonproteinuric chronic kidney disease stage III. 4. Acute renal failure, secondary to prerenal kidney injury (resolved). 5. Mild venous stasis of the lower extremities. 6. Sepsis with Escherichia coli urinary tract infection. 7. Rectovesical and rectovaginal fistula. 8. Deconditioning. 9. Gait dysfunction. 10. Normocytic anemia. 11. Normocytic iron deficiency anemia. 12. Leukocytosis with granulocytosis. 13. Hypocalcemia. 14. Hypokalemia. 1. Severe gait dysfunction and deconditioning and possible functional quadriplegia. 2. Sepsis secondary to Escherichia coli urinary tract infection with history of rectovaginal, rectovesical fistula. 3. Escherichia coli urinary tract infection. 4. Acute renal failure. 5. Hypoxemia. 6. Normocytic anemia. 7. Leukocytosis with granulocytosis. 8. Status post acute renal failure. 9. Hypocalcemia. 10. Mild hypoalbuminemia. 11. History of dementia, Parkinson's disease, anxiety, and possible depression. 12. Prerenal kidney injury. 13. Non-proteinuric chronic kidney disease stage III. 14. History of anxiety. 15. History of dementia, history of depression, history of hypovitaminosis D. 1. Severe deconditioning and gait dysfunction and possible bedridden status and possible functional quadriplegia. 2. Sepsis secondary to a Escherichia coli urinary tract infection with history of vaginal and rectovesical fistula. 3. Deconditioning. 4. Escherichia coli urinary tract infection. 5. Acute renal failure. 6. History of hypertension. 7. Asymptomatic hypoxemia. 8. Kyphosis of the thoracic spine. 9. Hypoalbuminemia. 10. Hypocalcemia. 11. Normocytic anemia. 12. Hypokalemia. 13. Oropharyngeal dysphagia with impulsive and unsafe eating behaviors. 14. History of anxiety disorder. 15. History of dementia. 16. History of Parkinson disease. 17. History of normocytic iron deficiency anemia. 1. Severe gait dysfunction, deconditioning and bedridden status. 2. Questionable and possible functional quadriplegia. 3. Escherichia coli urinary tract infection. 4. Acute renal failure. 5. Systemic inflammatory response syndrome versus possible sepsis secondary to Escherichia coli urinary tract infection. 6. Colovesical and colovaginal fistula. 7. History of hypertension. 8. Asymptomatic hypoxemia. 9. Normocytic iron deficiency anemia. 10. Normal potassium. 11 Acute renal failure with mild prerenal kidney injury. 12. Non-proteinuric chronic kidney disease stage III/IV. 13. Hypocalcemia. 14. Hypoalbuminemia. 15. Malnutrition. 16. History of anxiety disorder. 17. History of dementia. 18. Iron deficiency normocytic anemia. 19. History of anxiety disorder. 20. Hypovitaminosis D. 21. Hyperuricemia. 22. Deconditioning. 1. Acute renal failure. 2. Systemic inflammatory response syndrome versus possible sepsis secondary to Escherichia coli urinary tract infection. 3. Colovesicular and colovaginal fistula. 4. Acute renal failure. 5. Poor compliance. 6. Severe gait deconditioning and severe gait dysfunction and bedridden status. 7. Functional quadriplegia. 8. Transient asymptomatic hypoxemia. 9. Leukocytosis with granulocytosis. 10. Normocytic iron deficiency anemia. 11. Transient hypernatremia. 12. Acute renal failure. 13. Hyperuricemia. 14. Transaminitis. 15. . 16. Hyperuricemia. 17. Iron deficiency normocytic anemia. 18. Escherichia coli urinary tract infection with proteinuria, hematuria, bacteriuria and pyuria. 19. Sepsis secondary to Escherichia coli urinary tract infection. 20. Mild aortic stenosis. 21. Moderate aortic regurgitation, moderate mitral regurgitation and mild tricuspid regurgitation. 22. History of anxiety disorder, history of dementia, history of hypovitaminosis D and hyperuricemia. 1. Acute renal failure. 2. Questionable sepsis with leukocytosis, granulocytosis. 3. Normocytic anemia. 4. Hypertension. 5. History of dementia. 6. Leukocytosis with granulocytosis. 7. Normocytic anemia. 8. Transient hypernatremia. 9. Acute kidney injury and acute renal failure (resolving). 10. Severe gait dysfunction, deconditioning and possible functional quadriplegia. 11. Hyperuricemia. 12. Transaminitis. 13. Hyperprocalcitoninemia. 14. Hypovitaminosis D. 15. Acute renal failure and acute kidney injury. 16. Escherichia coli urinary tract infection with hematuria, pyuria, bacteriuria. 17. Systemic inflammatory response syndrome with possible sepsis secondary to Escherichia coli urinary tract infection with ____vaginal and ____ fistula. 18. Prerenal azotemia. 19. Chronic kidney disease, stage, IIIB, nonproteinuric. 20. Severe deconditioning and gait dysfunction. 21. Chronic ____, ____ fistula with Escherichia coli urinary tract infection. 22. Moderate aortic and moderate mitral regurgitation. 23. Mild mitral valve prolapse, calcified aortic valve with mild aortic stenosis and moderate aortic regurgitation and moderate mitral regurgitation and mild tricuspid regurgitation with left ventricular ejection fraction of 55%. 24. Gait dysfunction. 25. Deconditioning 26. Anxiety disorder. 27. Dementia. 28. Hypovitaminosis D. 29. Hyperuricemia. 1. Acute renal failure. 2. Questionable sepsis with leukocytosis and granulocytosis. 3. Normocytic anemia. 4. Questionable hemorrhagic cystitis. 5. Questionable hemorrhagic cystitis with intrinsic mural and perivesicular abnormalities and dependent echogenic material debris in the bladder. 6. Left bundle-branch block and left axis deviation. 7. Left lower lung pleural thickening. 8. Cardiomegaly. 9. Sigmoid diverticulosis. 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 11. 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 12. Status post hysterectomy. 13. Sigmoid diverticulosis. 14. Leukocytosis with granulocytosis. 15. Normocytic anemia. 16. Hyponatremia. 17. Slow-resolving acute renal failure. 18. Hyperuricemia. 19. History of dementia. 20. Deconditioning. 21. Gait dysfunction. 22. Recurrent fall. 23. Questionable functional quadriplegia. 24. Hypovitaminosis D. 25. History of dyslipidemia. 26. History of angina, history of hypertension, history of dementia. 1. Altered mental status, etiology undetermined. 2. Acute renal failure and acute kidney injury and prerenal kidney injury. 3. Questionable and possible urinary tract infection. 4. Recurrent fall and gait dysfunction. 5. History of dementia. 6. Questionable swallowing and feeding dysfunction. 7. Leukocytosis with granulocytosis. 8. Normocytic anemia. 9. Hyperuricemia. 10. Hyperphosphatemia. 11. Transaminitis. 12. Elevated BNP with history of congestive heart failure. 13. Hematuria, pyuria, bacteriuria. 14. Left bundle branch block and left axis deviation. 15. Generalized osteopenia and thoracolumbar spondylosis with old healed left rib fracture. 16. Status post mastectomy for left breast carcinoma. 17. Gait dysfunction. 18. Recurrent falls. 19. 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 20. Questionable cystitis with thickened urinary bladder wall. 21. Questionable echogenic urinary bladder mass. 22. History of dementia. 23. History of hypovitaminosis D, history of anxiety, history of dementia, history of congestive heart failure, history of angina, history of dementia. 24. History of colovesicular and colovaginal fistula. 1. questionable atrial fibrillation with rapid ventricular response. 2. Left anterior hemiblock. 3. Hypertensive cardiovascular disease. 4. Questionable lateral ischemic changes. 1. Asymptomatic intermittent nonsustained ventricular tachycardia. 2. Volume overload. 3. History of dementia, history of depression, history of anxiety, history of Parkinson's disease. 4. Hypovitaminosis D. 5. Hypokalemia. 6. Acute kidney injury. Plan at this time, patient's family met with the real estate assessor. The patient is now made a DNR/DNI as per the patient's son and the spouse request. Serial labs ordered. CONSULTATIONS: Infectious disease, urology, surgery, nephrology, cardiology. Procalcitonin level pending. CURRENT MEDICATIONS: Ativan 0.5 twice a day. The patient is on D5W at 50 mL an hour by gas mask inspector. The patient is on Eliquis 2.5 mg twice a day, Exelon capsule 4.5 mg twice a day, Flagyl 500 p.o. q. 8, selenium 200 mcg daily, Klonopin 4 mg at bedtime, Lasix 20 mg IV q. 12, cefepime 1 gram IV q. 12, Protonix 40 mg daily, Requip 8 mg daily. The patient is on Ultram 50 mg q. 12 p.r.n., vitamin D3 2000 units daily, Xopenex nebulizer 0.63 mg q. 6 hours. Oxygen continuous. The patient has been ordered a Holter monitor by cardiology. Out of bed, ADRIANO stockings, SCDs ordered, occupational and physical therapy ordered. The patient seen by social media executive. The patient's case was referred to [facility]. The patient was seen by TCU nurse. The patient not accepted due to longer duration of therapy needed. The patient was seen by physical therapist. Their recommendations were subacute rehabilitation. I have spoken to the patient's today at length. I have explained to the patient's about overall guarded to poor prognosis and multiple complicated comorbidities. The patient's has wished to continue with the DNR/DNI and patient's is expressing his interest to making the patient comfortable only and no aggressive interventions and no further procedures is requested by the patient's . At this time, patient will be stabilized for possible discharge soon to subacute rehab of patient's family' s choice. Dictated and electronically signed, not read. Rigo Vargas MD cc: [id number] TT: 11/18/2016 12:18:49 Confirmation # [id number] Dictation # [id number] angela GUEVARA
--- NOTE | 2016-11-18 13:24 | RAD ---
HISTORY: sob COMPARISON: 11/17/2016 FINDINGS: LUNGS: There is kyphosis. The patient's head overlies the right lung apex. Increasing perihilar infiltrates are seen PLEURA: Small bilateral pleural effusions CARDIOVASCULAR: Moderate cardiomegaly OSSEOUS STRUCTURES: No significant abnormalities. VISUALIZED UPPER ABDOMEN: Normal. OTHER FINDINGS: None. IMPRESSION: Increasing CHF
[2016-11-18] MEDS ORDERED: DOPamine 400mg/250ml D5W 400 MG/250 ML BAG IV PRN (14:47)
[2016-11-18 17:02] LABS: ALB/GLOB RATIO 0.8 (1.1-1.8); BILIRUBIN,TOTAL 0.7 mg/dL (0.2-1.3); CALCIUM 8.3 mg/dL (8.4-10.5); MAGNESIUM 2.1 mg/dL (1.7-2.2); POTASSIUM 5.4 mmol/L (3.6-5.0); TOTAL PROTEIN 7.9 g/dL (5.8-8.3)
[2016-11-18 17:13] LABS: TROPONIN I 0.03 ng/mL
[2016-11-18] MEDS ORDERED: Sod Polystyrene Sulf 15 gm/60 ml Oral Susp PO STA (17:21)
--- NOTE | 2016-11-18 18:08 | CP.PCM.PN ---
Subjective - Date & Time of Evaluation Date of Evaluation: 11/18/16 Time of Evaluation: 13:15 - Subjective Subjective: Patient's respiratory status is worsening, afebrile overnight. Patient is not very responsive today. Objective - Vital Signs/Intake and Output Vital Signs (last 24 hours): Temp Pulse Resp BP Pulse Ox 98.7 F 80 17 144/55 L 92 L 11/18/16 12:00 11/18/16 14:59 11/18/16 12:00 11/18/16 14:59 11/17/16 17:56 Intake and Output: 11/18/16 11/18/16 06:59 18:59 Intake Total 120 Balance 120 - Medications Medications: Current Medications Apixaban (Eliquis) 2.5 mg PO BID BETHEL PRN Reason: Protocol Last Admin: 11/18/16 10:08 Dose: 2.5 mg Cholecalciferol (Vitamin D) 2,000 iu PO DAILY BETHEL Last Admin: 11/18/16 10:08 Dose: 2,000 iu Clonazepam (Klonopin) 4 mg PO HS BETHEL PRN Reason: Protocol Last Admin: 11/17/16 22:39 Dose: 4 mg Furosemide (Lasix) 20 mg IVP Q12H BETHEL Last Admin: 11/18/16 10:15 Dose: 20 mg Home Med (Home Med) 1 unit PO DAILY BETHEL Last Admin: 11/18/16 10:08 Dose: 1 unit Cefepime HCl (Maxipime 1gm) 100 mls @ 100 mls/hr IVPB Q12 BETHEL PRN Reason: Protocol Stop: 11/21/16 22:01 Last Admin: 11/18/16 10:07 Dose: 100 mls/hr Dextrose (Dextrose 5% In Water 1000 Ml) 1,000 mls @ 50 mls/hr IV .Q20H BETHEL Last Admin: 11/18/16 10:21 Dose: 50 mls/hr Dopamine HCl/Dextrose (Dopamine 400mg/250ml D5w) 400 mg in 250 mls @ 5.781 mls/ hr IV .Q24H PRN; Protocol; 2.5 MCG/KG/MIN PRN Reason: TITRATE PER MD ORDER Last Admin: 11/18/16 14:59 Dose: 2.5 mcg/kg/min, 5.781 mls/hr Levalbuterol HCl (Xopenex) 0.63 mg IH [id number] [facility] Last Admin: 11/18/16 14:41 Dose: 0.63 mg Lorazepam (Ativan) 0.5 mg PO BID BETHEL PRN Reason: Protocol Last Admin: 11/18/16 10:09 Dose: Not Given Metronidazole (Flagyl) 500 mg PO Q8 BETHEL PRN Reason: Protocol Last Admin: 11/18/16 15:36 Dose: Not Given Pantoprazole Sodium (Protonix Ec Tab) 40 mg PO 0630 [facility] Last Admin: 11/17/16 05:32 Dose: 40 mg Rivastigmine (Exelon Cap) 4.5 mg PO 0800,1800 [facility] Last Admin: 11/18/16 10:02 Dose: 4.5 mg Ropinirole HCl (Requip) 8 mg PO 0800 [facility] Last Admin: 11/18/16 10:02 Dose: 8 mg Tramadol HCl (Ultram) 50 mg PO Q12 PRN PRN Reason: MOD PAIN Tramadol HCl (Ultram) 50 mg PO Q12 PRN PRN Reason: Pain, moderate (4-7) - Labs Labs: 11/18/16 06:05 11/18/16 16:45 PT 13.7 Seconds (9.9-11.8) H 11/18/16 05:00 INR 1.27 (0.93-1.08) H 11/18/16 05:00 APTT 29.3 Seconds (23.7-30.8) 11/18/16 05:00 - Constitutional Appears: Other (lethargic, in respiratory distress) - Head Exam Head Exam: NORMAL INSPECTION - Neck Exam Neck Exam: absent: Lymphadenopathy, Meningismus - Respiratory Exam Respiratory Exam: Decreased Breath Sounds, Rales (scattered) - Cardiovascular Exam Cardiovascular Exam: +S1, +S2 - GI/Abdominal Exam GI & Abdominal Exam: Soft. 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
[2016-11-18] MEDS ORDERED: Sod Polystyrene Sulf 15 gm/60 ml Oral Susp PR ONE ×2 (18:33→18:35)
[2016-11-18 19:41] LABS: ARTERIAL BLOOD GAS HCO3 17.3 mmol/L (21-28)
[2016-11-18 19:45] LABS: ARTERIAL BLOOD GAS PH 7.06 (7.35-7.45)
--- NOTE | 2016-11-18 21:48 | PN ---
DATE: 11/18/2016 An 81-year-old female with past medical history of hypertension, CHF, CKD, rectovesical/rectovaginal fistulas, initially admitted with UTI sepsis secondary to rectovesical fistula, now status post loop colostomy procedure done 4 days ago. Nephrology following patient for acute renal failure. The patient seen this morning. Denied any complaints. Denied any shortness of breath. Tolerated p. o. diet. However, clinical status deteriorated later this afternoon. PHYSICAL EXAMINATION: VITAL SIGNS: This afternoon, blood pressure 144/55, heart rate 80, temperature 96.6, respirations 17 . GENERAL: The patient with agonal breathing. Not responding to verbal stimuli, only tactile stimuli. HEENT: Moist mucous membranes. Nonicteric. RESPIRATORY: Diminished breath sounds bilaterally. No rhonchi, no wheezes. CARDIOVASCULAR: Systolic murmur heard at apex. Otherwise, regular rate and rhythm. GASTROINTESTINAL: Abdomen soft, nondistended. Ostomy in place. GENITOURINARY: No blood or distention, minimal urine output in Ramirez bag. EXTREMITIES: Hands cool to touch. Bilateral moderate leg edema. LABORATORY DATA: WBC 11.1, hemoglobin 12.8, hematocrit 41.6, platelets 432. Chemistry: Sodium 145, potassium 5.4, chloride 114, bicarbonate 19, BUN 45, creatinine 2.1, glucose 164, calcium 8.3, album in 3.4. ABG this evening, pH 7.06, pCO2 of 61, pO2 of 60, bicarbonate 17.3. Lactate 1.1. ASSESSMENT: 1. Acute renal failure on chronic kidney disease. Now with acute tubular necrosis in the setting of hypotensive event yesterday and unstable cardiac status. Anuric renal failure with mild hyperkalemi a and metabolic acidosis. Exam and chest x-ray indicative of volume overload. The patient will need hemodialysis support within the next 24 hours if family is agreeable. Avoid nephrotoxic agents. Pepe p mean arterial pressure above 65. Will give high dose of Lasix 160 mg IV push as a possible tempori zing measure. Agree with Kayexalate enema. 2. Hypercapnic respiratory failure in the setting of congestive heart failure and pneumonia, marked respiratory acidosis. The patient just placed on BiPAP support this evening. Discussed with family that if patient does not respond to BiPAP, will need to be intubated imminently; however, family opti ng for DNI status. 3. Sepsis. The patient currently on cefepime in the setting of rectovesical fistula. Urine culture coming back as Enterococcus faecium. Consider redosing frequency of antibiotic to once daily in the setting of creatinine clearance less than 10. 4. Congestive heart failure exacerbation with bilateral pleural effusions on CT and worsening conges tion on chest x-ray. The patient not responding to small doses of IV Lasix and will likely need hemo dialysis support. 5. Hypernatremia, mild. Will hold off on giving any free water for now. Total critical care time spent in reviewing patient's chart, discussion with primary attending and dania hanson, 45 minutes. Wally Ash MD cc: [id number] TT: 11/18/2016 21:47:29 Confirmation # [id number] Dictation # [id number] angela
[2016-11-19] MEDS: Levalbuterol 0.63 MG/3 ML Inhal Soln UD IH SCH ×4 (01:59→19:24)
[2016-11-19] MEDS: Pantoprazole 40 mg EC Tab PO SCH (06:32)
[2016-11-19] MEDS ORDERED: Lidocaine 2% Inj (20ml) ONE ×2 (07:00→14:38)
[2016-11-19 07:15] LABS: ADD MANUAL DIFF? NO
[2016-11-19 07:30] LABS: INR 1.22 (0.93-1.08); PARTIAL THROMBOPLASTIN TIME 26.4 Seconds (23.7-30.8)
[2016-11-19 07:57] LABS: BASO # 0.03 K/mm3 (0.0-2.0); BASO % 0.2 % (0.0-3.0); GRAN # 12.94 (1.4-6.5); GRAN % 79.3 % (50.0-68.0); HEMATOCRIT 43.9 % (36.0-48.0); LYMPH # 2.2 (1.2-3.4); LYMPH % 13.6 % (22.0-35.0); MEAN CORPUSCULAR HGB CONC 30.8 g/dl (31.0-37.0); MEAN PLATELET VOLUME 10.3 fl (7.0-11.0); MONO # 1.1 (0.1-0.6); MONO % 6.9 % (1.0-6.0); PLATELET COUNT 404 10^3/uL (120.0-450.0); RED CELL DISTRIBUTION WIDTH 21.2 % (11.5-14.5); WHITE BLOOD COUNT 16.3 10^3/ul (4.5-11.0)
[2016-11-19] MEDS ORDERED: Midazolam 2 MG/2 ML VIAL ONE (08:05)
[2016-11-19] MEDS ORDERED: Sodium Chloride 0.9% 1,000 ML IV SCH (09:30)
--- NOTE | 2016-11-19 09:47 | CP.PCM.PN ---
Subjective - Date & Time of Evaluation Date of Evaluation: 11/19/16 Time of Evaluation: 07:42 - Subjective Subjective: General Surgery Progress Note for Dr. Alfredo This 81F was seen and examined this AM at bedside. She is currently opening her eyes and responsive to questions. She denies any pain. Spoke with the and son. Pt is going for a pace maker placement today. Objective - Vital Signs/Intake and Output Vital Signs (last 24 hours): Temp Pulse Resp BP Pulse Ox 97.1 F L 74 18 121/51 L 97 11/19/16 06:06 11/19/16 06:06 11/19/16 06:06 11/19/16 06:06 11/19/16 06:06 Intake and Output: 11/19/16 11/19/16 06:59 18:59 Intake Total 593 Output Total 42 Balance 551 - Medications Medications: Current Medications Cholecalciferol (Vitamin D) 2,000 iu PO DAILY BETHEL Last Admin: 11/18/16 10:08 Dose: 2,000 iu Clonazepam (Klonopin) 4 mg PO HS BETHEL PRN Reason: Protocol Last Admin: 11/18/16 22:21 Dose: Not Given Furosemide (Lasix) 20 mg IVP Q12H BETHEL Last Admin: 11/18/16 22:21 Dose: Not Given Home Med (Home Med) 1 unit PO DAILY BETHEL Last Admin: 11/18/16 10:08 Dose: 1 unit Cefepime HCl (Maxipime 1gm) 100 mls @ 100 mls/hr IVPB Q12 BETHEL PRN Reason: Protocol Stop: 11/21/16 22:01 Last Admin: 11/18/16 23:11 Dose: 100 mls/hr Dextrose (Dextrose 5% In Water 1000 Ml) 1,000 mls @ 50 mls/hr IV .Q20H BETHEL Last Admin: 11/18/16 10:21 Dose: 50 mls/hr Sodium Chloride (Sodium Chloride 0.9%) 1,000 mls @ 50 mls/hr IV .Q20H BETHEL Stop: 11/19/16 10:30 Levalbuterol HCl (Xopenex) 0.63 mg IH [id number] BETHEL Last Admin: 11/19/16 01:59 Dose: 0.63 mg Lorazepam (Ativan) 0.5 mg PO BID BETHEL PRN Reason: Protocol Last Admin: 11/18/16 18:31 Dose: Not Given Metronidazole (Flagyl) 500 mg PO Q8 [facility] PRN Reason: Protocol Last Admin: 11/19/16 06:32 Dose: Not Given Pantoprazole Sodium (Protonix Ec Tab) 40 mg PO 0630 [facility] Last Admin: 11/19/16 06:32 Dose: Not Given Rivastigmine (Exelon Cap) 4.5 mg PO 0800,1800 [facility] Last Admin: 11/19/16 08:06 Dose: Not Given Ropinirole HCl (Requip) 8 mg PO 0800 [facility] Last Admin: 11/19/16 08:06 Dose: Not Given - Labs Labs: 11/19/16 06:30 11/18/16 16:45 PT 13.2 Seconds (9.9-11.8) H 11/19/16 06:30 INR 1.22 (0.93-1.08) H 11/19/16 06:30 APTT 26.4 Seconds (23.7-30.8) 11/19/16 06:30 - Constitutional Appears: Non-toxic, No Acute Distress - Head Exam Head Exam: ATRAUMATIC, NORMOCEPHALIC - Eye Exam Eye Exam: EOMI, Normal appearance - ENT Exam ENT Exam: Mucous Membranes Moist, Normal Exam - Respiratory Exam Respiratory Exam: NORMAL BREATHING PATTERN - Cardiovascular Exam Cardiovascular Exam: +S1, +S2 - GI/Abdominal Exam GI & Abdominal Exam: Soft. 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 Currently with MARCIANO Pacemaker placement today Cont abx as per ID Advance as tolerated monitor ostomy and power output D/W Dr. Juni Whitten PGY1
--- NOTE | 2016-11-19 09:50 | CARD ---
APPROVED REPORT HISTORY The Patient is a 81 year-old female with a history of HTN, TACY Mai syndrome, Multiple Syncope, Asystole PROCEDURES Insertion Single Chamber Ventricle Pacemaker INDICATIONS Asystole SSS Tachy mai Syndrome PAF Multiple Syncope Multiple pauses more than 6 secods CONSCIOUS SEDATION AGENTS Versed IMPLANTED DEVICES Medtronic 5092-52 Ventricular Lead Medtronic Pulse generator SENSIA SR IS OPERATIVE NOTE The patient was brought to the Cardiac Catheterization Laboratory in a fasting state and was prepped and draped in a sterile manner. The left subclavian region was infiltrated with 2% Lidocaine, subcutaneous anesthesia. A transverse incision was made in the left subclavicular area. The subcutaneous pocket was formed via blunt dissection, Percutaneous venous access was achieved and an introducer sheath was inserted into the Lt Subclavian vein. Through the introducer sheath, the ventricular lead wire was postitioned in the right ventricular apex utilizing fluoroscopic guidance. The ventricular was advanced over the wire under fluoroscopic guidance and positioned in the right ventricle. Capturing and sensing thresholds were verified. THE VENTRICULAR ELECTRODE PARAMETERS R WAVE 20 THRESHOLD0.5 RESISTANCE 650 The ventricular lead was then secured using silk 2.0. The subcutaneous pocket was irrigated with Betadine. The ventricular lead was attached to the appropriate receptacle on the pulse generator and set screws firmly tightened to insure adequate contact and stability. The lead and pulse generator were placed into the subcutaneous pocket. Sharp and sponge counts were confirmed to be correct. At this time the pocket was closed subcutaneously with a Vicryl 2.0 and the skin was closed with a Vicryl 4.0 .The operative site was dressed in sterile fashion. The patient tolerated the procedure well and was transferred to the floor in stable condition. COMPLICATIONS The patient tolerated the procedure well and there were no complications associated with the procedure. CONCLUSION Successful Implantation of PPM, VVIR, Medtronic SENSIA SR IS. CC; DRS. Peoples/ Sam
--- NOTE | 2016-11-19 10:08 | RAD ---
HISTORY: S/P Post Pacemaker, R/O Pneumoothorax COMPARISON: 11/18/2016 FINDINGS: LUNGS: In the right mid lung zone there is opacity just inferior to the right minor fissure. Study is rotated towards the right. There is limited visualization of the right lung apex due to overlapping ribs, clavicle and sternoclavicular joint osseous summation here PLEURA: A left pneumothorax is present. The pleural reflection is 1.6 cm retracted from the left rib cage. The pneumothorax is finding was called to the floor and given to the nurse taking care the patient Josette at 10:02 a.m. I have been informed that Dr. Jose is already aware as well. CARDIOVASCULAR: In interval pacemaker device is placed. There are surgical clips overlying the left lateral chest wall OSSEOUS STRUCTURES: Thoracic spondylosis and generalized osteopenia noted VISUALIZED UPPER ABDOMEN: Normal. OTHER FINDINGS: None. IMPRESSION: Interval left apical pneumothorax -as detailed above. Right mid lung zone nonspecific opacity perhaps representing fluid in a minor fissure. This area was previously homogeneously obscured. Interval pacemaker insertion
--- NOTE | 2016-11-19 10:14 | PN ---
DATE: 11/19/2016 REASON FOR CONSULTATION: Atrial fibrillation, status post rapid response, asystole, syncope, multipl e episodes of long pauses. BRIEF CLINICAL HISTORY: This 81-year-old female with past medical history significant for recurrent sepsis and colovesical and colovaginal fistula, paroxysmal atrial fibrillation, tachybrady syndrome, multiple pauses, asystole. The patient's family made a DNR. Discussed with the and son. Th ey wanted to agree for the pacemaker, so the patient is scheduled for pacemaker. Risks, benefits, al ternatives explained to the patient's family, son and , that we will proceed for pacemaker tod ay. We will reverse the DNR for the procedure. Further recommendation depending upon the hospital c ourse. We will follow with you. Thank you, Dr. Vargas, for providing the opportunity in taking care of the patient. Bishop Jose MD cc: [id number] TT: 11/19/2016 10:13:15 Confirmation # [id number] Dictation # [id number] tn
[2016-11-19] MEDS ORDERED: Meropenem 1g/NS 100mL IVPB 1 GM/100 ML PIGGYBACK IVPB SCH (10:30)
--- NOTE | 2016-11-19 10:37 | PN ---
DATE: 11/19/2016 REASON FOR DICTATION AND FOLLOWUP: Status post pacemaker. BRIEF CLINICAL HISTORY: This is an 81-year-old female with history of recurrent sepsis secondary to colovesical/colovaginal fistula, episode of paroxysmal atrial fibrillation, tachybrady syndrome, mult iple pauses, asystole. The patient underwent a single chamber VVI pacemaker without any complication , as per family discussion. Before the pacemaker, length of time discussion done last night, yesterday afternoon and this morning again. Mentioned very clearly the patient's outcome is not going to change, but asystole issue will be resolved and long pauses will be resolved, but overall it will not affect patient's mortality and morbidity, but patient's and son wanted to have a pacemaker, so pacemaker, single chamber VV I, was placed without any complication. The patient is going to the PACU. Further recommendation as per storage consultant. We will follow with you. Thank you, Dr. Vargas, for providing us the opportunity in taking care of the patient. We will hold E liquis for now because of recent pacemaker. We will follow with you. Bishop Jose MD cc: [id number] TT: 11/19/2016 10:36:40 Confirmation # [id number] Dictation # [id number] en
--- NOTE | 2016-11-19 10:38 | PN ---
DATE: 11/19/2016 ADDENDUM REASON FOR DICTATION: Addendum to initial progress note. Post pacemaker chest x-ray reviewed with the radiologist, 10%-15% pneumothorax. Dr. Alfredo was kiley led for possible chest tube placement. Discussed with Dr. Alfredo, probably is going to put a small chest tube. Discussed with the patient's family. We will follow with you. I will inform Dr. Vargas also. Bishop Jose MD cc: [id number] TT: 11/19/2016 10:38:16 Confirmation # [id number] Dictation # [id number] en
--- NOTE | 2016-11-19 10:51 | PCM.SURG1 ---
Surgeon's Initial Post Op Note - Surgeon's Notes Surgeon: Dr. Alfredo Terrazzo Grinder: Dr. Whitten PGY-1, Dr. Puente Type of Anesthesia: Local Pre-Operative Diagnosis: Pneumothorax Operative Findings: Pneumothorax Post-Operative Diagnosis: Pneumothorax Operation Performed: Pigtail chesttube placement Specimen/Specimens Removed: none Estimated Blood Loss: EBL {In ML}: 1 Blood Products Given: N/A Drains Used: Chest Tubes Post-Op Condition: Good Date of Surgery/Procedure: 11/19/16 Time of Surgery/Procedure: 10:51
--- NOTE | 2016-11-19 11:13 | RAD ---
HISTORY: chest tube placement COMPARISON: Earlier same day FINDINGS: LUNGS: There is a small caliber chest tube in the left lung apex. There is a small residual left apical pneumothorax. PLEURA: No significant pleural effusion identified, no pneumothorax apparent. CARDIOVASCULAR: Mild cardiomegaly OSSEOUS STRUCTURES: No significant abnormalities. VISUALIZED UPPER ABDOMEN: Normal. OTHER FINDINGS: None. IMPRESSION: Re-expansion of left lung following chest tube placement. Minimal residual pneumothorax at apex
[2016-11-19] MEDS: SELENIUM 200 MCG PO SCH (11:50)
[2016-11-19] MEDS: Cefepime 1gm in NS 100ml 100 ML IVPB SCH (11:51)
--- NOTE | 2016-11-19 13:09 | CARD ---
APPROVED REPORT EKG Measurement Heart [id number] VA [id number] <Conclusion> Sinus rhythm with premature atrial complexes with aberrant conduction Left axis deviation Left bundle branch block Abnormal ECG
[2016-11-19 13:24] LABS: ALB/GLOB RATIO 0.8 (1.1-1.8); BILIRUBIN,DIRECT 0.8 mg/dL (0.0-0.4); BILIRUBIN,TOTAL 0.9 mg/dL (0.2-1.3); CALCIUM 8.1 mg/dL (8.4-10.5); MAGNESIUM 2.1 mg/dL (1.7-2.2); TOTAL PROTEIN 7.2 g/dL (5.8-8.3)
[2016-11-19 13:27] LABS: POTASSIUM 5.8 mmol/L (3.6-5.0)
--- NOTE | 2016-11-19 13:56 | PN ---
DATE: 11/19/2016 The patient is seen in room 262, bed 1. Overnight events were reviewed. The patient is lying in the bed with BiPAP. The patient's son is at bedside. Overnight nurse's notes were reviewed. The patient is arousable, but lethargic. Vital signs, patient underwent permanent pacemaker implant and due to which, patient developed apical pneumothorax after which a pigtail chest tube was placed by Dr. Alfredo. PHYSICAL EXAMINATION: VITAL SIGNS: T-max is 98. Telemetry shows paroxysmal atrial fibrillation, sinus bradycardia, episodic pauses which were noted over the last 24-48 hours. Blood pressure 134/50, 116/41, 120/44. Respirations 14-18. O2 sat 99% on BiPAP. Intake/output, patient's urine output has been declining in the last 24 hours. HEAD: Normocephalic, atraumatic. HEENT: Shows pinkish conjunctivae. Positive BiPAP noted. CHEST: Positive chest kyphosis. Positive left upper chest pacemaker. Positive left upper chest tube, pigtail chest tube noted. Decreased breath sounds at the bases, occasional rhonchi, upper lung walls. CARDIOVASCULAR: Shows S1, S2, regular rhythm. Positive systolic murmur right second intercostal space, left sternal border, left second intercostal space. ABDOMEN: Soft. Positive bowel sounds. GENITALIA: Female. Positive Ramirez catheter. Positive colostomy noted. Positive colostomy noted. Positive Ramirez catheter noted. EXTREMITIES: Positive SCDs and ADRIANO stockings noted. NEUROLOGIC: The patient is lethargic, arousable responsive. Gait examination is not tested, patient is lying in the bed. DIAGNOSTICS: CBC is only available. CBC is only available. CMP still pending. WBC 16.3, hemoglobin and hematocrit 13.5 and 43.9, platelet 404, granulocytes 79%. PT, PTT 13.2 and 26.4. ABG from yesterday pH of 7.06, pCO2 of 61, pO2 of 60, bicarb 17, saturation of 87%. Chemistry is still pending. No CMP done from this morning at 5:00. CMP still pending. I have called the lab to expedite it. Urine culture from 11/16, vancomycin-resistant Enterococcus faecium, which is grossman resistant, sensitive only to Zyvox and ____. IMPRESSION AND PLAN: 1. Bilevel positive airway pressure dependent respiratory failure. 2. Status post single chamber pacemaker implant. 3. Sick sinus syndrome, paroxysmal atrial fibrillation, tachybrady syndrome with asystole and multiple pauses of more than 6 seconds. 4. Status post permanent pacemaker implant on the left upper chest. 5. Post-pacemaker implant, post-pacemaker implant, post-pacemaker implant, left apical pneumothorax. 6. Status post left-sided pigtail chest tube placement. 7. Severe kyphosis. 8. Thoracic spondylosis and osteopenia. 9. Paroxysmal atrial fibrillation with rapid ventricular response and slow ventricular response with pauses and period of asystole. 10. Cardiomegaly. 11. Encephalopathy with lethargy. 12. Diffuse cerebral cortical atrophy of the brain with ventricular prominence with small vessel chronic microvascular ischemic disease of the brain. 13. Left anterior hemiblock and left bundle branch block. 14. Vancomycin-resistant Enterococcus faecium urinary tract infection. 15. 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 16. Acute renal failure. 17. Hypercapnic respiratory failure. 18. Status post rapid response secondary to asystole and multiple long cardiac pauses. 19. Possible multisystem organ failure. 20. Severe deconditioning. 21. Hypercapnic respiratory failure with severe metabolic acidosis. 22. Non-hemolyzed hyperkalemia. 23. Acute kidney injury, acute renal failure. 24. Hyperprocalcitoninemia. 1. Status post rapid response. 2. Severe symptomatic bradycardia with cardiac pauses. 3. Possibly beta juan alberto, calcium channel juan alberto induced. 4. Atrial fibrillation with slow ventricular response and pauses. 5. Transient hypotension. 6. Metabolic acidosis. 7. Transient hypotension. 8. Atrial fibrillation with slow ventricular response and pauses and sinus bradycardia. 9. Leukocytosis with granulocytosis. 10. Thrombocytosis. 11. Atrial fibrillation. 12. Hypoxemia. 13. Transient metabolic acidosis. 14. Acute kidney injury with underlying chronic kidney disease stage III/IV. 15 Transaminitis. 16. Possible diastolic congestive heart failure with elevated BNP. 17. Enterococcus faecium urinary tract infection. 18. Bilateral lower lobe infiltrates, effusion and cardiomegaly with congestive heart failure. 19. Enterococcus faecium urinary tract infection. 20. Severe deconditioning and gait dysfunction and possibly functional quadriplegia. 21. Bilateral pleural effusion and cardiomegaly. 22. Atrial fibrillation with slow ventricular response. 23. Sinus bradycardia with first degree AV block and left anterior hemiblock and left bundle branch block. 24. Cerebral cortical atrophy of the brain with ventricular prominence. 25. Chronic microvascular ischemic disease of the brain. 26. 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 27. Status post loop colostomy, postop day #4. 28. Acute kidney injury with underlying chronic kidney disease stage III. 29. History of moderate aortic regurgitation, mild aortic stenosis, moderate mitral regurgitation, mild tricuspid regurgitation. 30. Status post diverting colostomy and loop colostomy. 31. Deconditioning. 32. Gait dysfunction. 1. Volume overload versus questionable diastolic congestive heart failure with bilateral bibasilar infiltrates and effusion and cardiomegaly. 2. Atrial fibrillation. 3. History of hypertension. 4. Leukocytosis with granulocytosis. 5. Normocytic anemia. 6. Transient Hypernatremia. 7. Acute kidney injury with chronic kidney disease, stage III. 8. Hypocalcemia. 9. Hypoalbuminemia. 10. Sepsis. 11. Sepsis with urinary tract infection and colovesicular/colovaginal fistula. 12. Status post loop colostomy, postoperative day 3. 13. Gait dysfunction. 14. Deconditioning. 1. Sepsis, secondary to rectovaginal, rectovesical fistula with inadequate drainage of urine and stool,status post loop colostomy,postop day 2. 2. Questionable lethargy, etiology undetermined. 3. Paroxysmal atrial fibrillation. 4. Leukocytosis with granulocytosis. 5. Normocytic anemia. 6. Transient coagulopathy. 7. Hypernatremia. 8. Hypokalemia. 9. Acute kidney injury with underlying chronic kidney disease stage III with prerenal kidney injury. 10. Hypocalcemia. 11. Mild hypoalbuminemia. 12. Left bundle branch block, left anterior hemiblock 13. Status post loop colostomy, postop day 2. 14. Sepsis, secondary to colovesicular, colovaginal fistula. 15. Encephalopathy. 16. History of anxiety, history of dementia, history of Parkinson disease, history of depression, history of hypovitaminosis D. 1. 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 2. Status post loop colostomy. 3. 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 4. Atrial fibrillation with rapid ventricular response. 5. Left anterior hemiblock. 6. Left bundle branch block. 7. Transient hypotension and bradycardia. 8. Hypernatremia. 9. Acute kidney injury with underlying chronic kidney disease stage III/IV. 10. Indeterminate troponin. 11. Leukocytosis with granulocytosis. 12. Transient coagulopathy. 13. Hyponatremia. 14. Prerenal kidney injury. 15. Severe gait dysfunction and deconditioning. 16. Status post colostomy diversion. 17. Paroxysmal atrial fibrillation converting to normal sinus rhythm with left axis deviation, left anterior hemiblock, left bundle branch block. 18. Urinary retention. 19. History of dementia, Parkinson disease. 20. Transient confusional state. 21. Transient agitation (resolved). 22. Deconditioning. 23. Gait dysfunction. 24. Status post loop colostomy, postop day 1. 25. Deconditioning. 26. Gait dysfunction. 27. Questionable possible functional quadriplegia. 28. History of anxiety. 29. History of dementia. 30. History of Parkinson disease. 31. History of hypovitaminosis D. 1. Sepsis with leukocytosis and granulocytosis. 2. New onset atrial fibrillation with rapid ventricular response and indeterminate troponin. 3. Moderate aortic regurgitation, mild aortic stenosis, moderate mitral regurgitation with left ventricular ejection fraction of 55%. 4. Left anterior hemiblock. 5. Questionable left bundle branch block. 6. Lateral wall ischemic changes on the EKG. 7. Severe deconditioning, gait dysfunction versus questionable and possible functional quadriplegia. 8. Sepsis, secondary to rectovesical and rectovaginal fistula and inadequate drainage of urine and stool. 9. Status post treatment for Escherichia coli urinary tract infection, secondary to rectovesical, rectovaginal fistula. 10. Acute kidney injury. 11. Transient hypotension. 12. History of hypertension. 13. Anemia. 14. Leukocytosis. 15. Normocytic iron deficiency anemia. 16. Mild coagulopathy, secondary to anticoagulation. 17. Hypokalemia. 18. Acute kidney injury with underlying chronic kidney disease stage IV. 19. Hypoalbuminemia. 20. Indeterminate troponin. 21. Hypotension with sepsis and new onset atrial fibrillation with rapid ventricular response. 22. History of Parkinson disease, dementia, history of anxiety, depression, history of hypovitaminosis D. 1. Recurrent urinary retention with urinary bladder distention. 2. Questionable systemic inflammatory response syndrome versus sepsis with low- grade fever of 105, tachycardia 3. Leukocytosis with granulocytosis. 4. Normocytic anemia. 5. Hypokalemia. 6. Acute kidney injury. 7. Mild hypoalbuminemia 8. Severe deconditioning, gait dysfunction and bedridden status with questionable functional quadriplegia. 9. History of dementia, depression, Parkinson's disease, history of hypertension. 10. Hypovitaminosis D. 11. Deconditioning. 1. Recurrent urinary retention with urinary bladder distention. 2. Severe deconditioning and gait dysfunction. 3. Functional quadriplegia with severe deconditioning and gait dysfunction and bedridden status. 4. Small bilateral pleural effusion and bibasilar atelectasis. 5. Questionable sigmoid colitis with mural thickening. 6. Urinary retention with distended urinary bladder with air fluid level. 7. Hypertension. 8. Tachycardia. 9. Leukocytosis with granulocytosis. 10. Questionable systemic inflammatory response syndrome. 11. Normocytic anemia. 12. Acute recurrent kidney injury. 13. 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 14. Normocytic iron deficiency anemia. 15. Chronic kidney disease stage II/III. 1. Severe deconditioning, severe gait dysfunction and possible questionable functional quadriplegia. 2. Urinary retention. 3. Colovesicular and colovaginal fistula. 4. Abdominal distention, probably secondary to urinary retention. 5. Sepsis secondary to Escherichia coli urinary tract infection and colovesicular and colovaginal fistula. 6. Hypertension. 7. Questionable ileus with constipation, fecal retention, fecal stasis. 8. Asymptomatic hypoxemia. 9. Status post acute renal failure. 10. Normocytic iron deficiency anemia. 11. Status post IV Venofer infusion. 12. Leukocytosis with granulocytosis. 13. Status post acute renal failure. 14. Hypocalcemia. 15. Mild hypoalbuminemia. 16. History of anxiety disorder, history of dementia, history of depression, history of Parkinson's disease, hypovitaminosis D. 1. Severe deconditioning and gait dysfunction. 2. Deconditioning. 3. Questionable constipation and fecal retention. 4. Asymptomatic hypoxemia. 5. Leukocytosis with granulocytosis. 6. Normocytic anemia. 7. Prerenal kidney injury. 8. Status post acute renal failure. 9. 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 10. Deconditioning. 11. Gait dysfunction. 12. Sepsis secondary to Escherichia coli urinary tract infection. 13. History of colovesicular colovaginal fistula. 14. Dementia. 15. History of Parkinson disease. 16. History of anxiety disorder. 17. History of constipation. 1. Severe deconditioning and gait dysfunction. 2. Possible functional quadriplegia. 3. Nonproteinuric chronic kidney disease stage III. 4. Acute renal failure, secondary to prerenal kidney injury (resolved). 5. Mild venous stasis of the lower extremities. 6. Sepsis with Escherichia coli urinary tract infection. 7. Rectovesical and rectovaginal fistula. 8. Deconditioning. 9. Gait dysfunction. 10. Normocytic anemia. 11. Normocytic iron deficiency anemia. 12. Leukocytosis with granulocytosis. 13. Hypocalcemia. 14. Hypokalemia. 1. Severe gait dysfunction and deconditioning and possible functional quadriplegia. 2. Sepsis secondary to Escherichia coli urinary tract infection with history of rectovaginal, rectovesical fistula. 3. Escherichia coli urinary tract infection. 4. Acute renal failure. 5. Hypoxemia. 6. Normocytic anemia. 7. Leukocytosis with granulocytosis. 8. Status post acute renal failure. 9. Hypocalcemia. 10. Mild hypoalbuminemia. 11. History of dementia, Parkinson's disease, anxiety, and possible depression. 12. Prerenal kidney injury. 13. Non-proteinuric chronic kidney disease stage III. 14. History of anxiety. 15. History of dementia, history of depression, history of hypovitaminosis D. 1. Severe deconditioning and gait dysfunction and possible bedridden status and possible functional quadriplegia. 2. Sepsis secondary to a Escherichia coli urinary tract infection with history of vaginal and rectovesical fistula. 3. Deconditioning. 4. Escherichia coli urinary tract infection. 5. Acute renal failure. 6. History of hypertension. 7. Asymptomatic hypoxemia. 8. Kyphosis of the thoracic spine. 9. Hypoalbuminemia. 10. Hypocalcemia. 11. Normocytic anemia. 12. Hypokalemia. 13. Oropharyngeal dysphagia with impulsive and unsafe eating behaviors. 14. History of anxiety disorder. 15. History of dementia. 16. History of Parkinson disease. 17. History of normocytic iron deficiency anemia. 1. Severe gait dysfunction, deconditioning and bedridden status. 2. Questionable and possible functional quadriplegia. 3. Escherichia coli urinary tract infection. 4. Acute renal failure. 5. Systemic inflammatory response syndrome versus possible sepsis secondary to Escherichia coli urinary tract infection. 6. Colovesical and colovaginal fistula. 7. History of hypertension. 8. Asymptomatic hypoxemia. 9. Normocytic iron deficiency anemia. 10. Normal potassium. 11 Acute renal failure with mild prerenal kidney injury. 12. Non-proteinuric chronic kidney disease stage III/IV. 13. Hypocalcemia. 14. Hypoalbuminemia. 15. Malnutrition. 16. History of anxiety disorder. 17. History of dementia. 18. Iron deficiency normocytic anemia. 19. History of anxiety disorder. 20. Hypovitaminosis D. 21. Hyperuricemia. 22. Deconditioning. 1. Acute renal failure. 2. Systemic inflammatory response syndrome versus possible sepsis secondary to Escherichia coli urinary tract infection. 3. Colovesicular and colovaginal fistula. 4. Acute renal failure. 5. Poor compliance. 6. Severe gait deconditioning and severe gait dysfunction and bedridden status. 7. Functional quadriplegia. 8. Transient asymptomatic hypoxemia. 9. Leukocytosis with granulocytosis. 10. Normocytic iron deficiency anemia. 11. Transient hypernatremia. 12. Acute renal failure. 13. Hyperuricemia. 14. Transaminitis. 15. . 16. Hyperuricemia. 17. Iron deficiency normocytic anemia. 18. Escherichia coli urinary tract infection with proteinuria, hematuria, bacteriuria and pyuria. 19. Sepsis secondary to Escherichia coli urinary tract infection. 20. Mild aortic stenosis. 21. Moderate aortic regurgitation, moderate mitral regurgitation and mild tricuspid regurgitation. 22. History of anxiety disorder, history of dementia, history of hypovitaminosis D and hyperuricemia. 1. Acute renal failure. 2. Questionable sepsis with leukocytosis, granulocytosis. 3. Normocytic anemia. 4. Hypertension. 5. History of dementia. 6. Leukocytosis with granulocytosis. 7. Normocytic anemia. 8. Transient hypernatremia. 9. Acute kidney injury and acute renal failure (resolving). 10. Severe gait dysfunction, deconditioning and possible functional quadriplegia. 11. Hyperuricemia. 12. Transaminitis. 13. Hyperprocalcitoninemia. 14. Hypovitaminosis D. 15. Acute renal failure and acute kidney injury. 16. Escherichia coli urinary tract infection with hematuria, pyuria, bacteriuria. 17. Systemic inflammatory response syndrome with possible sepsis secondary to Escherichia coli urinary tract infection with ____vaginal and ____ fistula. 18. Prerenal azotemia. 19. Chronic kidney disease, stage, IIIB, nonproteinuric. 20. Severe deconditioning and gait dysfunction. 21. Chronic ____, ____ fistula with Escherichia coli urinary tract infection. 22. Moderate aortic and moderate mitral regurgitation. 23. Mild mitral valve prolapse, calcified aortic valve with mild aortic stenosis and moderate aortic regurgitation and moderate mitral regurgitation and mild tricuspid regurgitation with left ventricular ejection fraction of 55%. 24. Gait dysfunction. 25. Deconditioning 26. Anxiety disorder. 27. Dementia. 28. Hypovitaminosis D. 29. Hyperuricemia. 1. Acute renal failure. 2. Questionable sepsis with leukocytosis and granulocytosis. 3. Normocytic anemia. 4. Questionable hemorrhagic cystitis. 5. Questionable hemorrhagic cystitis with intrinsic mural and perivesicular abnormalities and dependent echogenic material debris in the bladder. 6. Left bundle-branch block and left axis deviation. 7. Left lower lung pleural thickening. 8. Cardiomegaly. 9. Sigmoid diverticulosis. 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 11. 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 12. Status post hysterectomy. 13. Sigmoid diverticulosis. 14. Leukocytosis with granulocytosis. 15. Normocytic anemia. 16. Hyponatremia. 17. Slow-resolving acute renal failure. 18. Hyperuricemia. 19. History of dementia. 20. Deconditioning. 21. Gait dysfunction. 22. Recurrent fall. 23. Questionable functional quadriplegia. 24. Hypovitaminosis D. 25. History of dyslipidemia. 26. History of angina, history of hypertension, history of dementia. 1. Altered mental status, etiology undetermined. 2. Acute renal failure and acute kidney injury and prerenal kidney injury. 3. Questionable and possible urinary tract infection. 4. Recurrent fall and gait dysfunction. 5. History of dementia. 6. Questionable swallowing and feeding dysfunction. 7. Leukocytosis with granulocytosis. 8. Normocytic anemia. 9. Hyperuricemia. 10. Hyperphosphatemia. 11. Transaminitis. 12. Elevated BNP with history of congestive heart failure. 13. Hematuria, pyuria, bacteriuria. 14. Left bundle branch block and left axis deviation. 15. Generalized osteopenia and thoracolumbar spondylosis with old healed left rib fracture. 16. Status post mastectomy for left breast carcinoma. 17. Gait dysfunction. 18. Recurrent falls. 19. 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 20. Questionable cystitis with thickened urinary bladder wall. 21. Questionable echogenic urinary bladder mass. 22. History of dementia. 23. History of hypovitaminosis D, history of anxiety, history of dementia, history of congestive heart failure, history of angina, history of dementia. 24. History of colovesicular and colovaginal fistula. 1. questionable atrial fibrillation with rapid ventricular response. 2. Left anterior hemiblock. 3. Hypertensive cardiovascular disease. 4. Questionable lateral ischemic changes. 1. Asymptomatic intermittent nonsustained ventricular tachycardia. 2. Volume overload. 3. History of dementia, history of depression, history of anxiety, history of Parkinson's disease. 4. Hypovitaminosis D. 5. Hypokalemia. 6. Acute kidney injury. PLAN: At this time, patient had a chest tube placement to the left upper chest. Repeat chemistries, which has been ordered since the morning, are awaited. The patient's repeat EKG done, is pending. Repeat labs from today, chemistry is pending. The patient's serial labs are ordered. CURRENT CONSULTATIONS: Infectious disease, urology, surgery, nephrology, cardiology. CURRENT MEDICATIONS: 1. Ativan 0.5 mg twice a day. 2. D5W at 50 mL an hour. 3. Exelon capsule 4.5 mg twice a day. 4. Selenium 200 mcg daily. 5. The patient is on Klonopin 4 mg at bedtime. 6. Lasix 20 mg IV q.12. 7. Protonix 40 mg daily. 8. Requip 8 mg daily. 9. Vitamin D 2000 units daily. 10. Xopenex 0.63 mg q.6 hours. The patient is on BiPAP, 15/8, FiO2 of 50%, respiration of 18. The patient is presently on n.p.o. diet. The patient is on bed rest, head of the bed, SCDs, ADRIANO stockings. Occupational and physical therapy ordered. The patient's overall prognosis is guarded to poor, which has been explained and communicated to the patient's son and the on multiple occasions after the patient's decline in the clinical status. CODE STATUS: The patient is currently DNR/DNI. Time spent more than 35 minutes. Dictated and electronically signed, not read. Rigo Vargas MD cc: [id number] TT: 11/19/2016 13:55:29 Confirmation # [id number] Dictation # [id number]
[2016-11-19] MEDS ORDERED: Dextrose 50% SYRINGE Inj (50 ml) IVP ONE (14:01)
[2016-11-19] MEDS ORDERED: Sod Polystyrene Sulf 15 gm/60 ml Oral Susp PR ONE ×2 (14:01→14:30)
[2016-11-19] MEDS ORDERED: Sodium Bicarbonate (8.4%) 50 Meq Syringe IVP ONE (14:01)
[2016-11-19] MEDS ORDERED: Heparin 0 ML IV ONE (14:38)
--- NOTE | 2016-11-19 19:03 | CP.PCM.PN ---
Subjective - Date & Time of Evaluation Date of Evaluation: 11/19/16 Time of Evaluation: 14:40 - Subjective Subjective: Continues to be on the BiPAP and has minimal urine output. No fevers overnight. Pacemaker was placed but she developed left-sided pneumothorax. Objective - Vital Signs/Intake and Output Vital Signs (last 24 hours): Temp Pulse Resp BP Pulse Ox 98 F 65 14 134/50 L 99 11/19/16 11:10 11/19/16 18:25 11/19/16 11:10 11/19/16 12:13 11/19/16 11:10 Intake and Output: 11/19/16 11/19/16 06:59 18:59 Intake Total 593 Output Total 42 Balance 551 - Medications Medications: Current Medications Atenolol (Tenormin) 12.5 mg PO BID [facility] Cholecalciferol (Vitamin D) 2,000 iu PO DAILY [facility] Last Admin: 11/19/16 11:51 Dose: Not Given Clonazepam (Klonopin) 4 mg PO HS BETHEL PRN Reason: Protocol Last Admin: 11/18/16 22:21 Dose: Not Given Furosemide (Lasix) 20 mg IVP Q12H [facility] Last Admin: 11/19/16 12:13 Dose: Not Given Home Med (Home Med) 1 unit PO DAILY [facility] Last Admin: 11/19/16 11:50 Dose: Not Given Dextrose (Dextrose 5% In Water 1000 Ml) 1,000 mls @ 50 mls/hr IV .Q20H [facility] Last Admin: 11/18/16 10:21 Dose: 50 mls/hr Levalbuterol HCl (Xopenex) 0.63 mg IH [id number] BETHEL Last Admin: 11/19/16 13:12 Dose: 0.63 mg Lorazepam (Ativan) 0.5 mg PO BID BETHEL PRN Reason: Protocol Last Admin: 11/19/16 17:32 Dose: Not Given Pantoprazole Sodium (Protonix Ec Tab) 40 mg PO 0630 [facility] Last Admin: 11/19/16 06:32 Dose: Not Given Rivastigmine (Exelon Cap) 4.5 mg PO 0800,1800 [facility] Last Admin: 11/19/16 18:27 Dose: Not Given Ropinirole HCl (Requip) 8 mg PO 0800 [facility] Last Admin: 11/19/16 08:06 Dose: Not Given - Labs Labs: 11/19/16 06:30 11/19/16 13:09 PT 13.2 Seconds (9.9-11.8) H 11/19/16 06:30 INR 1.22 (0.93-1.08) H 11/19/16 06:30 APTT 26.4 Seconds (23.7-30.8) 11/19/16 06:30 - Constitutional Appears: In Acute Distress - Head Exam Head Exam: NORMAL INSPECTION - ENT Exam ENT Exam: Mucous Membranes Moist - Neck Exam Neck Exam: absent: Lymphadenopathy, Meningismus - Respiratory Exam Respiratory Exam: Decreased Breath Sounds - Cardiovascular Exam Cardiovascular Exam: +S1 - GI/Abdominal Exam GI & Abdominal Exam: Soft. 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
[2016-11-19] MEDS ORDERED: DAPTOmycin 500 mg Inj (Cubicin) IV ONE (20:00)
--- NOTE | 2016-11-19 20:33 | CP.PCM.CON ---
History of Present Illness - History of Present Illness History of Present Illness: Reason for ICU consult: Intiation of HD HPI: 81 y/o female with an extensive PMHx as listed below was asked to be evaluated for an ICU transfer due to needing HD. She was transferred from the TCU to the ED on 11/12/16 due to urinary retention and was also noted to have rectal vesiculo and rectal-vaginal fistula's. She has since undergone surgery and now has a colostomy bag in place. On 11/17/16 she was transferred from med/ surg to telemetry floor due to sinus pauses requiring closer monitoring. Today she received a PPM and subsequently a pigtail catheter due to a small pneumothorax. She has been progressivel worsening and has been oliguric and acidtoic. Nephrology placed a trialysis cathter in the right femoral area for initiation of Hemodialysis today. The patient herself is miniimally responsive on Bipap, nods her head to reply to questions and is unable to give much in terms of history. She denies any complaints of pain, shortness of breath or chest discmfort at this time. PMHx: Htn Breast Cancer in remission Parkinsons rectal vesiculo + rectal vaginal fistula s/p loop colostmy POD # 5 MARCIANO on CKD SSS s/p PPM Allergies: NKDA Fam Hx: reviewed and noncontributory Soc Hx: unable to obtain Meds: see active med list Resuscitation status: DNR/DNI Review of Systems - Review of Systems Systems not reviewed;Unavailable: Respiratory Distress, Altered Mental Status Past Patient History - Infectious Disease Hx of Infectious Diseases: None - Past Medical History & Family History Past Medical History?: Yes - Past Social History Smoking Status: Never Smoked - CARDIAC Hx Cardiac Disorders: Yes Hx Congestive Heart Failure: Yes Hx Hypertension: Yes - PULMONARY Hx Respiratory Disorders: No Hx Chronic Obstructive Pulmonary Disease (COPD): No - NEUROLOGICAL Hx Neurological Disorder: Yes HX Cerebrovascular Accident: No Hx Parkinson's Disease: Yes - HEENT Hx HEENT Problems: No - RENAL Hx Chronic Kidney Disease: Yes (URINARY RETENTION) Hx Renal Failure: No - ENDOCRINE/METABOLIC Hx Endocrine Disorders: No Hx Diabetes Mellitus Type 1: No Hx Diabetes Mellitus Type 2: No Hx Hypothyroidism: No - HEMATOLOGICAL/ONCOLOGICAL Hx Blood Transfusions: Yes Hx Blood Transfusion Reaction: No - INTEGUMENTARY Hx Dermatological Problems: Yes Other/Comment: MULTIPLE PUSTULES AND BROWN PLAQUES TO FACE AND BACK. - MUSCULOSKELETAL/RHEUMATOLOGICAL Hx Arthritis: No Hx Falls: Yes - GASTROINTESTINAL Hx Gastrointestinal Disorders: Yes (COLOVESICAL FISTULA) Hx Gastroesophageal Reflux: No - GENITOURINARY/GYNECOLOGICAL Hx Genitourinary Disorders: Yes (BREAST CA -LEFT MASTECTOMY.) Other/Comment: VESICOVAGINAL FISTULA,RECTOVAGINAL FISTULA,HYSTERECTOMY - PSYCHIATRIC Hx Psychophysiologic Disorder: Yes Hx Anxiety: Yes Hx Substance Use: No - SURGICAL HISTORY Hx Surgeries: Yes - ANESTHESIA Hx Anesthesia Reactions: No Hx Malignant Hyperthermia: No Meds Allergies/Adverse Reactions: Allergies Allergy/AdvReac Type Severity Reaction Status Date / Time No Known Allergies Allergy Verified 11/12/16 21:15 - Medications Medications: Current Medications Atenolol (Tenormin) 12.5 mg PO BID [facility] Cholecalciferol (Vitamin D) 2,000 iu PO DAILY [facility] Last Admin: 11/19/16 11:51 Dose: Not Given Clonazepam (Klonopin) 4 mg PO HS BETHEL PRN Reason: Protocol Last Admin: 11/18/16 22:21 Dose: Not Given Furosemide (Lasix) 20 mg IVP Q12H [facility] Last Admin: 11/19/16 12:13 Dose: Not Given Home Med (Home Med) 1 unit PO DAILY [facility] Last Admin: 11/19/16 11:50 Dose: Not Given Dextrose (Dextrose 5% In Water 1000 Ml) 1,000 mls @ 50 mls/hr IV .Q20H [facility] Last Admin: 11/18/16 10:21 Dose: 50 mls/hr Meropenem 1g/NS 100mL IVPB (Meropenem 1g/Ns 100ml Ivpb) 1 gm in 100 mls @ 100 mls/hr IVPB Q12 BETHEL PRN Reason: Protocol Stop: 11/26/16 22:01 Doxycycline Hyclate 100 mg/ (Sodium Chloride) 100 mls @ 100 mls/hr IVPB Q12 BETHEL PRN Reason: Protocol Daptomycin 370 mg/ Sodium (Chloride) 100 mls @ 200 mls/hr IV ONCE ONE Stop: 11/19/16 20:59 Levalbuterol HCl (Xopenex) 0.63 mg IH [id number] [facility] Last Admin: 11/19/16 19:24 Dose: 0.63 mg Lorazepam (Ativan) 0.5 mg PO BID BETHEL PRN Reason: Protocol Last Admin: 11/19/16 17:32 Dose: Not Given Pantoprazole Sodium (Protonix Ec Tab) 40 mg PO 0630 [facility] Last Admin: 11/19/16 06:32 Dose: Not Given Rivastigmine (Exelon Cap) 4.5 mg PO 0800,1800 [facility] Last Admin: 11/19/16 18:27 Dose: Not Given Ropinirole HCl (Requip) 8 mg PO 0800 [facility] Last Admin: 11/19/16 08:06 Dose: Not Given Verapamil HCl (Verapamil Inj) 2.5 mg IVP Q6H PRN PRN Reason: for Heart rate >130 Physical Exam - Constitutional Appears: Unkempt, Older Than Stated Age, Confused - Head Exam Head Exam: ATRAUMATIC, NORMOCEPHALIC - Eye Exam Eye Exam: EOMI - ENT Exam ENT Exam: Mucous Membranes Dry - Respiratory Exam Respiratory Exam: Decreased Breath Sounds (decreased bibasilar breath sounds), NORMAL BREATHING PATTERN. absent: Rales, Rhonchi, Wheezes - Cardiovascular Exam Cardiovascular Exam: REGULAR RHYTHM, +S1, +S2 - GI/Abdominal Exam GI & Abdominal Exam: Normal Bowel Sounds, Soft. absent: Guarding, Rebound, Tenderness Additional comments: RLQ colostomy in place; pink stoma with green/brown material present - Rectal Exam Rectal Exam: Deferred - Extremities Exam Extremities exam: Positive for: normal inspection - Neurological Exam Neurological exam: Alert, Altered - Skin Skin Exam: Dry, Intact, Normal Color, Warm Results - Vital Signs Recent Vital Signs: Last Vital Signs Temp 97.5 F L 11/19/16 18:00 Pulse 70 11/19/16 19:28 Resp 18 11/19/16 18:00 BP 118/50 L 11/19/16 18:00 Pulse Ox 99 11/19/16 11:10 - Labs Result Diagrams: 11/19/16 06:30 11/19/16 13:09 Labs: Laboratory Results - last 24 hr 11/19/16 11/19/16 11/19/16 06:30 06:30 09:30 WBC 16.3 H D RBC 4.22 Hgb 13.5 Hct 43.9 MCV 104.0 MCH 32.0 MCHC 30.8 L RDW 21.2 H Plt Count 404 MPV 10.3 Gran % 79.3 H Lymph % (Auto) 13.6 L Dade % (Auto) 6.9 H Eos % (Auto) 0.0 L Baso % (Auto) 0.2 Gran # 12.94 H Lymph # 2.2 Dade # 1.1 H Eos # 0.0 Baso # 0.03 PT 13.2 H INR 1.22 H APTT 26.4 Sodium Potassium Chloride Carbon Dioxide Anion Gap BUN Creatinine Est GFR ( Amer) Est GFR (Non-Af Amer) Random Glucose Calcium Magnesium Total Bilirubin Direct Bilirubin AST ALT Alkaline Phosphatase Total Protein Albumin Globulin Albumin/Globulin Ratio Procalcitonin 2.48 H 11/19/16 13:09 WBC RBC Hgb Hct MCV MCH MCHC RDW Plt Count MPV Gran % Lymph % (Auto) Dade % (Auto) Eos % (Auto) Baso % (Auto) Gran # Lymph # Dade # Eos # Baso # PT INR APTT Sodium 148 Potassium 5.8 H* Chloride 117 H Carbon Dioxide 17 L Anion Gap 20 BUN 53 H Creatinine 2.4 H Est GFR ( Amer) 24 Est GFR (Non-Af Amer) 19 Random Glucose 87 Calcium 8.1 L Magnesium 2.1 Total Bilirubin 0.9 Direct Bilirubin 0.8 H AST 91 H ALT 68 H Alkaline Phosphatase 112 Total Protein 7.2 Albumin 3.2 Globulin 4.1 Albumin/Globulin Ratio 0.8 L Procalcitonin - Imaging and Cardiology Chest x-ray Status: Image reviewed by me (left sided pacemaker in place; pigtail cathter in place with resolution of pneumothorax) Assessment & Plan - Assessment and Plan (Free Text) Assessment: 81 y/o female with an extensive PMHx is being transferred to the ICU for initiation of her first session of HD. Plan: Neuro: patient is awake and alert once aroused; unable to assess orientation due to the fact that she's on Bipap and not answer questions, just giving yes or no answers. We will continue to monitor he and continue with Bipap therapy until her acidosis resolves Pulm: maintain on Bipap; she is a DNR/DNI; last ABG showing combind respiratory and metabolic acidosis; will continue with Bipap and repeat an ABG in the AM after she is dialyzed CVS: normotensive; will hold lasix for now as she will be getting dialysis; monitor strict i's and o's and dialy weights GI: will keep her NPO; change protonix from po to IV until she is well enough to remain off of bipap Renal: s/p right groin trialysis catheter; for HD today; will transfer to the ICU and monitor; repeat lytes in AM ID: on IV Abx with Dapto/merrem/doxycycline IV; previous VRE in the Urine, no new cultures have shown growth since; will monitor endo: no acute issues at this time Psych: unable to assess due to altered mentation likely secondary to toxic metabolic encephalopathy Case discussed in depth with Dr. Ash (nephro) labs and images have been reviewed personally total time of care: 40 minutes
--- NOTE | 2016-11-19 23:18 | PN ---
DATE: 11/19/2016 NEPHROLOGY FOLLOWUP NOTE HISTORY OF PRESENT ILLNESS: An 81-year-old female with past medical history of hypertension, CHF, CK D, rectovesical/rectovaginal fistulas, initially admitted with UTI, sepsis secondary to rectovesical fistula, now status post loop colostomy procedure done 5 days ago. Nephrology following patient for acute renal failure. Per patient's family, she was much more alert today compared with yesterday evening before initiating BiPAP, which she is currently on at time of exam. The patient underwent pacemaker placement today, complicated by small pneumothorax. Chest tube subsequently placed. VITAL SIGNS: This evening blood pressure 118/50, heart rate 77, respirations 18, temperature 97.5, O 2 sat earlier 99% on BiPAP with 50% FiO2. RADIOLOGY: Chest x-ray presently reviewed showing possible fluid and right lung minor fissure. Also , with opacity in this area. PHYSICAL EXAMINATION: GENERAL: The patient is lethargic. Opens eyes and responds intermittently to verbal stimuli. No ap parent distress. Tachypneic. HEENT: Moist mucous membranes. Nonicteric. RESPIRATORY: Right basal crackles, diminished sounds at left base. No rhonchi, no wheezes. CARDIOVASCULAR: Systolic murmur present. Otherwise, regular rate and rhythm. GASTROINTESTINAL: Abdomen soft, nondistended, mild tenderness. Ostomy in place. GENITOURINARY : No bladder distention. Minimal urine output in Ramirez bag. EXTREMITIES: Bilateral moderate leg edema. LABORATORY DATA: CBC: WBC 16.3, hemoglobin 13.5, hematocrit 43.9, platelets 404. Chemistry: Sodiu m 148, potassium 5.8, chloride 117, bicarb 17, BUN 53, creatinine 2.4, glucose 87, calcium 8.1, album in 3.2. Procalcitonin 2.48. ASSESSMENT: 1. Acute renal failure on chronic kidney disease, now with acute tubular necrosis in the setting of hypotensive event day before yesterday. Anuric renal failure with mild hyperkalemia and increased an ion gap, metabolic acidosis. Exam and chest x-ray indicative of volume overload. Mental status init ially improved on BiPAP. Now, again, very lethargic. Possible component of uremia. No one factor i s indicative of need for urgent initiation of hemodialysis. However, all factors particular, and the patient's poor prognosis, as well as Do Not Intubate status, which prevents us from intubating her f or respiratory failure, is pushing us towards initiating hemodialysis this evening. Right femoral hemodialysis catheter placed by me this evening. Initiating hemodialysis over 2 hours with a 2 K, 34 bicarb dialysate and UF goal of 1 liter using set tings to avoid hypotension in the setting of low diastolic blood pressure. 2. Hypercapnic respiratory failure in the setting of congestive heart failure and likely pneumonia. Severe respiratory acidosis seen on ABG yesterday that was likely cause of the patient's metabolic e ncephalopathy, which improved on BiPAP, but again, this evening, patient with signs of encephalopathy . No repeat blood gas available. Dialyzing today in part to offset acidosis, keeping in mind that g iving too much bicarbonate will increase hypercapnia if patient cannot achieve adequate ventilation. 3. Sepsis: Urine growing vancomycin-resistant Enterococcus. Procalcitonin level elevated. Possibl e aspiration pneumonia, as well. Infectious Disease today setting up antibiotics with daptomycin and meropenem. Need to ensure antibiotics are redosed after hemodialysis. 4. Congestive heart failure: Examination with suggestive chest x-ray findings. Will attempt to ach ieve ultrafiltration on hemodialysis as tolerated. 5. Hypernatremia: Approximately 1 liter free water deficit. Will correct with hemodialysis. 6. Hypotension: The patient now status post pacemaker placement. Restarted on small dose of beta- juan alberto today by cardiology. Will remove volume cautiously on hemodialysis to avoid further hypotens ion. Total critical care time in reviewing patient's heart, discussion with primary attending and family m embers, as well as coordination of hemodialysis, and being present for initiation of hemodialysis, ov er 1 hour. Wally Ash MD cc: [id number] TT: 11/19/2016 23:17:56 Confirmation # [id number] Dictation # [id number] dn
[2016-11-20 00:03] LABS: HEMATOCRIT 40.5 % (36.0-48.0); MEAN CELL VOLUME 104.4 fL (80.0-105.0); MEAN CORPUSCULAR HGB CONC 30.6 g/dl (31.0-37.0); MEAN PLATELET VOLUME 10.3 fl (7.0-11.0); PLATELET COUNT 358 10^3/uL (120.0-450.0); RED CELL DISTRIBUTION WIDTH 21.3 % (11.5-14.5); WHITE BLOOD COUNT 14.3 10^3/ul (4.5-11.0)
[2016-11-20 00:12] LABS: ALB/GLOB RATIO 0.7 (1.1-1.8); ALKALINE PHOSPHATASE 109 U/L (38-133); ALT/SGPT 68 U/L (7-56); AST/SGOT 75 U/L (15-39); BILIRUBIN,TOTAL 0.8 mg/dL (0.2-1.3); BLOOD UREA NITROGEN 60 mg/dL (7-21); CALCIUM 8.3 mg/dL (8.4-10.5); CARBON DIOXIDE 23 mmol/L (21-33); CHLORIDE 116 mmol/L (98-107); GFR AFRICAN-AMERICAN 21; GLUCOSE,RANDOM 82 mg/dL (70-110); MAGNESIUM 2.1 mg/dL (1.7-2.2); PHOSPHOROUS 7.3 mg/dL (2.5-4.5); SODIUM 148 mmol/L (132-148)
[2016-11-20 00:28] LABS: POTASSIUM 5.5 mmol/L (3.6-5.0)
[2016-11-20] MEDS: Meropenem 1g/NS 100mL IVPB 1 GM/100 ML PIGGYBACK IVPB SCH ×3 (01:15→22:02)
[2016-11-20 02:01] LABS: ADD MANUAL DIFF? YES
[2016-11-20 02:02] LABS: BAND 6 % (0-2); NEUTROPHIL 70 % (50.0-70.0)
[2016-11-20 02:03] LABS: ANISOCYTOSIS 1+; MYELOCYTE 2 %; NUCLEATED RED BLOOD CELL 1 %; PLATELET ESTIMATE NORMAL (NORMAL); POLYCHROMASIA 1+
[2016-11-20 06:37] LABS: BASO # 0.01 K/mm3 (0.0-2.0); BASO % 0.1 % (0.0-3.0); GRAN # 12.54 (1.4-6.5); GRAN % 81.6 % (50.0-68.0); HEMATOCRIT 40.3 % (36.0-48.0); LYMPH # 1.7 (1.2-3.4); LYMPH % 10.8 % (22.0-35.0); MEAN CELL VOLUME 105.2 fL (80.0-105.0); MEAN CORPUSCULAR HEMOGLOBIN 31.3 pg (25.0-35.0); MEAN CORPUSCULAR HGB CONC 29.8 g/dl (31.0-37.0); MEAN PLATELET VOLUME 10.1 fl (7.0-11.0); MONO # 1.2 (0.1-0.6); MONO % 7.5 % (1.0-6.0); PLATELET COUNT 238 10^3/uL (120.0-450.0); RED CELL DISTRIBUTION WIDTH 21.3 % (11.5-14.5); WHITE BLOOD COUNT 15.4 10^3/ul (4.5-11.0)
[2016-11-20 06:43] LABS: INR 1.23 (0.93-1.08); PARTIAL THROMBOPLASTIN TIME 29.6 Seconds (23.7-30.8)
[2016-11-20 06:46] LABS: ADD MANUAL DIFF? NO
[2016-11-20 06:48] LABS: ARTERIAL BLOOD GAS O2 CAPACITY 6.7 mL/dl (16-24); ARTERIAL BLOOD GAS O2 CONTENT 4.3 ML/dl (15-23); ARTERIAL BLOOD HGB O2 SAT 63.6 % (95.0-98.0); CARBOXYHEMOGLOBIN 0.6 % (0.5-1.5); HHB 35.6 % (0-5); METHEMOGLOBIN 0.1 % (0.0-3.0)
[2016-11-20 06:53] LABS: ALB/GLOB RATIO 0.7 (1.1-1.8); BILIRUBIN,DIRECT 0.8 mg/dL (0.0-0.4); BILIRUBIN,TOTAL 0.8 mg/dL (0.2-1.3); POTASSIUM 5.2 mmol/L (3.6-5.0); TOTAL PROTEIN 6.9 g/dL (5.8-8.3)
[2016-11-20 07:04] LABS: ARTERIAL BLOOD GAS HCO3 7.3 mmol/L (21-28); ARTERIAL BLOOD GAS PH 6.94 (7.35-7.45)
[2016-11-20 07:38] LABS: ARTERIAL BLOOD GAS HCO3 21.2 mmol/L (21-28); ARTERIAL BLOOD GAS O2 CAPACITY 17.4 mL/dl (16-24); ARTERIAL BLOOD HGB O2 SAT 96.3 % (95.0-98.0); CARBOXYHEMOGLOBIN 0.4 % (0.5-1.5); HHB 2.3 % (0-5); METHEMOGLOBIN 0.9 % (0.0-3.0)
[2016-11-20] MEDS: Levalbuterol 0.63 MG/3 ML Inhal Soln UD IH SCH ×3 (07:46→22:32)
[2016-11-20 07:58] LABS: ARTERIAL BLOOD GAS PH 7.09 (7.35-7.45)
--- NOTE | 2016-11-20 09:10 | CP.PCM.PCO ---
Physician Communication Note - Physician Communication Note Physician Communication Note: [facility]-family to consider
--- NOTE | 2016-11-20 09:30 | PN ---
DATE: 11/20/2016 The patient is seen in bed in the ICU this morning in 128, bed 6. No fevers reported. No chills, an d she is seen with the oxygen BiPAP on. PHYSICAL EXAMINATION: VITAL SIGNS: Temperature is 97, blood pressure of 120/40, respiratory rate of 21, heart rate of 74. HEENT: Unremarkable. NECK: Supple. LUNGS: Have decreased breath sounds. HEART: Normal S1, S2. ABDOMEN: Soft, nontender. LABORATORY EXAMINATION: Reveals the patient's white count of 15,400, hemoglobin of 12, platelets of 238. Chemistries reveal the BUN of 49, creatinine of 2.9. Hepatitis profile is pending. Microbiolo gy reveals there is VRE in the urine. The blood cultures have no growth. Review of orders reveals the patient to be on doxycycline and meropenem. ASSESSMENT AND PLAN: An 81-year-old female with new onset of sepsis secondary to aspiration pneumoni a with acute respiratory failure due to fluid overload, congestive heart failure, volume overload, po lyuric, acute on chronic renal failure, acute kidney injury, and chronic renal injury with cardiac ar rhythmia, atrial fibrillation, status post pacemaker placement, development of left-sided pneumothora x with a history of rectovesicular fistula and status post loop colostomy, postop day #6, and current ly on meropenem and doxycycline with vancomycin-resistant enterococcus in the urine. Overall prognosis is poor. The patient's procalcitonin is 2.48. However, the creatinine is 2.5. We will check on the hepatitis profile, and we will follow the LFTs, then final microbiology. The franklyn ent's chest x-ray report from this morning is not available. Dr. Wally Ash's note is reviewed, [facility] states the patient has acute tubular necrosis in the setting of hypotension. Dr. Vargas's note is reviewed. We will follow closely with you. Austen Bradford MD cc: [id number] TT: 11/20/2016 09:29:58 Confirmation # [id number] Dictation # [id number] william
--- NOTE | 2016-11-20 09:56 | RAD ---
HISTORY: comparison COMPARISON: 11/19/2016 FINDINGS: LUNGS: No change in left perihilar infiltrate PLEURA: No significant pleural effusion identified, no pneumothorax apparent. CARDIOVASCULAR: Normal. OSSEOUS STRUCTURES: No significant abnormalities. VISUALIZED UPPER ABDOMEN: Normal. OTHER FINDINGS: Single lead pacemaker IMPRESSION: No change in left perihilar infiltrate
[2016-11-20] MEDS: SELENIUM 200 MCG PO SCH (10:15)
--- NOTE | 2016-11-20 10:15 | CARD ---
APPROVED REPORT EKG Measurement Heart [id number] <Conclusion> Normal sinus rhythm Left axis deviation Nonspecific intraventricular block Possible Old Inf.Wall [place]. Clockwise Rotation.
--- NOTE | 2016-11-20 10:26 | PN ---
DATE: 11/20/2016 REASON FOR CONSULTATION: Asystole, multiple episodes, tachybrady syndrome, status post permanent pac emaker. 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 Length of discussion d one with the patient's family to make hospice care, but the patient wanted family to have a pacemaker . Yesterday, patient underwent pacemaker, single chamber, VVI. Postop complicated by 15% pneumo req uiring a chest tube, which completely expand. The patient has renal failure. Also last night, has a dialysis catheter and dialysis. Now patient is in the unit for dialysis. Awake and alert. Denies any chest pain, shortness of breath, any palpitation. PHYSICAL EXAMINATION: VITAL SIGNS: Temperature afebrile, heart rate 74, blood pressure with 122/47. HEENT: PERRLA. Extraocular muscles intact. NECK: Supple. No carotid bruits. No thyromegaly. CHEST: Clear to auscultation. HEART: S1, S2 regular. ABDOMEN: Soft. EXTREMITIES: Clubbing, cyanosis negative. BLOOD WORKUP: WBC 15.4, hemoglobin 12, hematocrit 40.3, platelet count 238. Chemistry shows sodium 147, potassium 5.2, chloride , carbon dioxide 25, anion gap of 12, BUN 49, creatinine 2.5. IMPRESSION: Acute kidney injury, diabetes, hypertension, hyperlipidemia, paroxysmal atrial fibrillat ion, asystole, tachybrady syndrome, multiple pauses, multiple times asystole, status post permanent p acemaker, complicated by pneumo 10%-15%, status post chest tube, expansion of the lung. Repeat chest x-ray shows improvement in the pneumo. The patient is on noninvasive ventilator, severe kyphoscolio sis. RECOMMENDATION: Continue current management that includes will start low-dose beta juan alberto to preven t going back into tachycardia protected from asystole and slow heart rate. If the blood pressu re tolerates, we can start Cardizem. Also, we will put p.r.n. hydralazine for tachycardia. We will follow with you. Thank you, Dr. Vargas, for providing us the opportunity in taking care of the patient. Overall, patie nt's condition is critical. Mcfp prognosis is extremely guarded. Discussed with the patient's f amily, son and . Thank you, Dr. Vargas, for providing us the opportunity in taking care of the patient. Bishop Jose MD cc:Rigo Vargas MD [id number] TT: 11/20/2016 10:23:58 Confirmation # [id number] Dictation # [id number] en
--- NOTE | 2016-11-20 12:20 | PN ---
DATE: 11/20/2016 Overnight events were noted. The patient was transferred to ICU overnight. The patient was given hemodialysis trial as per nephrology's recommendations. The patient is seen in ICU bed 6. The patient is lying in the bed. The patient is on BiPAP. The patient is awake, responsive, lethargic. The patient does not appear to be in any distress, but patient is presently on ____. The patient underwent dialysis yesterday. PHYSICAL EXAMINATION: VITAL SIGNS: T-max 98.0 to 97.5. Telemetry shows intermittent atrial fibrillation and sinus rhythm with paroxysmal atrial fibrillation. Blood pressure in the last 12-24 hours averaging around low 100s systolic, diastolic in the 40s and 50s. Respiration 21, O2 sat dropping to mid 80s to low 90s. INTAKE AND OUTPUT: Intake 300, output 1830. HEAD: Normocephalic, atraumatic. EENT: Shows positive CPAP noted. Positive kyphosis. Pinkish conjunctivae. NECK: Soft carotid bruit. CHEST: Kyphosis. LUNGS: Shows positive rhonchi upper lung walls. CARDIOVASCULAR: Shows S1, S2. Regular rhythm. Positive systolic murmur left sternal border, left second intercostal space, right second intercostal space. ABDOMEN: Soft. Positive right-sided colostomy. GENITALIA: Female. Positive Ramirez catheter. EXTREMITIES: Shows positive swelling of the lower extremity. Positive SCDs. NEUROLOGIC: The patient is awake, responsive, lethargic. Neurological examination is limited. GAIT: Could not be tested as patient is lying in the bed. DIAGNOSTICS: 11/20/2016: WBC 15.4, hemoglobin and hematocrit are 12 and 40.3, platelet 238. Granulocytes 82% segs, bands 6. PT, PTT 13.3 and 29.6. ABGs from yesterday and today were reviewed. The patient's lowest pH was 6.94, then now pH on the ABG is 7.09, pCO2 70, pO2 ____, bicarb 23, saturation of 97%. Sodium 147, potassium 5.2, chloride 115, CO2 25, anion gap 12, BUN 49, creatinine 2.5, GFR 22, glucose 83, calcium 8.0. Direct bilirubin 0.8, AST 75, ALT 73, albumin 2.9. Procalcitonin 2.48. Hepatitis serology is pending. Blood cultures: No growth. Urine culture is growing vancomycin-resistant Enterococcus faecium. Chest x-ray from this morning shows permanent pacemaker in place, positive increased vascular markings and possible pleural effusion. EKG from this morning shows sinus rhythm, left axis deviation, left anterior hemiblock with left bundle branch block. IMPRESSION AND PLAN: 1. Acute renal failure, status post hemodialysis x 1 via the right groin hemodialysis catheter. 2. Paroxysmal atrial fibrillation, status post permanent pacemaker implant. 3. Acute tubular necrosis. 4. Non-hemolyzed hyperkalemia with increased anion gap metabolic acidosis and respiratory acidosis. 5. Hypercapnic hypercarbic respiratory failure, bilevel positive airway pressure dependent. 6. Respiratory acidosis with hypercarbia. 7. Metabolic encephalopathy. 8. Sepsis secondary to aspiration pneumonia with acute hypercapneic hypercarbic bilevel positive airway pressure-dependent respiratory failure. 9. Volume overload with diastolic congestive heart failure. 10. Paroxysmal atrial fibrillation with rapid and slow ventricular response with multiple long pauses. 11. Post pacemaker implant, left apical pneumothorax, status post pigtail chest tube placement. 12. Severe deconditioning and gait dysfunction. 13. Multisystem organ failure. 14. Possible hypovolemic hypotensive shock with hypoxemia. 15. Persistent leukocytosis with granulocytosis and bandemia. 16. Severe increased anion gap metabolic acidosis with respiratory acidosis. 17. Non-hemolyzed hyperkalemia. 18. Transaminitis. 19. Hypoalbuminemia. 20. Hyperprocalcitoninemia. 21. Vancomycin-resistant Enterococcus faecium urinary tract infection. 22. Status post right groin hemodialysis catheter placement. 23. History of anxiety, history of dementia, history of Parkinson's disease, history of hypovitaminosis D. 1. Bilevel positive airway pressure dependent respiratory failure. 2. Status post single chamber pacemaker implant. 3. Sick sinus syndrome, paroxysmal atrial fibrillation, tachybrady syndrome with asystole and multiple pauses of more than 6 seconds. 4. Status post permanent pacemaker implant on the left upper chest. 5. Post-pacemaker implant, post-pacemaker implant, post-pacemaker implant, left apical pneumothorax. 6. Status post left-sided pigtail chest tube placement. 7. Severe kyphosis. 8. Thoracic spondylosis and osteopenia. 9. Paroxysmal atrial fibrillation with rapid ventricular response and slow ventricular response with pauses and period of asystole. 10. Cardiomegaly. 11. Encephalopathy with lethargy. 12. Diffuse cerebral cortical atrophy of the brain with ventricular prominence with small vessel chronic microvascular ischemic disease of the brain. 13. Left anterior hemiblock and left bundle branch block. 14. Vancomycin-resistant Enterococcus faecium urinary tract infection. 15. 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 16. Acute renal failure. 17. Hypercapnic respiratory failure. 18. Status post rapid response secondary to asystole and multiple long cardiac pauses. 19. Possible multisystem organ failure. 20. Severe deconditioning. 21. Hypercapnic respiratory failure with severe metabolic acidosis. 22. Non-hemolyzed hyperkalemia. 23. Acute kidney injury, acute renal failure. 24. Hyperprocalcitoninemia. 1. Status post rapid response. 2. Severe symptomatic bradycardia with cardiac pauses. 3. Possibly beta juan alberto, calcium channel juan alberto induced. 4. Atrial fibrillation with slow ventricular response and pauses. 5. Transient hypotension. 6. Metabolic acidosis. 7. Transient hypotension. 8. Atrial fibrillation with slow ventricular response and pauses and sinus bradycardia. 9. Leukocytosis with granulocytosis. 10. Thrombocytosis. 11. Atrial fibrillation. 12. Hypoxemia. 13. Transient metabolic acidosis. 14. Acute kidney injury with underlying chronic kidney disease stage III/IV. 15 Transaminitis. 16. Possible diastolic congestive heart failure with elevated BNP. 17. Enterococcus faecium urinary tract infection. 18. Bilateral lower lobe infiltrates, effusion and cardiomegaly with congestive heart failure. 19. Enterococcus faecium urinary tract infection. 20. Severe deconditioning and gait dysfunction and possibly functional quadriplegia. 21. Bilateral pleural effusion and cardiomegaly. 22. Atrial fibrillation with slow ventricular response. 23. Sinus bradycardia with first degree AV block and left anterior hemiblock and left bundle branch block. 24. Cerebral cortical atrophy of the brain with ventricular prominence. 25. Chronic microvascular ischemic disease of the brain. 26. 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 27. Status post loop colostomy, postop day #4. 28. Acute kidney injury with underlying chronic kidney disease stage III. 29. History of moderate aortic regurgitation, mild aortic stenosis, moderate mitral regurgitation, mild tricuspid regurgitation. 30. Status post diverting colostomy and loop colostomy. 31. Deconditioning. 32. Gait dysfunction. 1. Volume overload versus questionable diastolic congestive heart failure with bilateral bibasilar infiltrates and effusion and cardiomegaly. 2. Atrial fibrillation. 3. History of hypertension. 4. Leukocytosis with granulocytosis. 5. Normocytic anemia. 6. Transient Hypernatremia. 7. Acute kidney injury with chronic kidney disease, stage III. 8. Hypocalcemia. 9. Hypoalbuminemia. 10. Sepsis. 11. Sepsis with urinary tract infection and colovesicular/colovaginal fistula. 12. Status post loop colostomy, postoperative day 3. 13. Gait dysfunction. 14. Deconditioning. 1. Sepsis, secondary to rectovaginal, rectovesical fistula with inadequate drainage of urine and stool,status post loop colostomy,postop day 2. 2. Questionable lethargy, etiology undetermined. 3. Paroxysmal atrial fibrillation. 4. Leukocytosis with granulocytosis. 5. Normocytic anemia. 6. Transient coagulopathy. 7. Hypernatremia. 8. Hypokalemia. 9. Acute kidney injury with underlying chronic kidney disease stage III with prerenal kidney injury. 10. Hypocalcemia. 11. Mild hypoalbuminemia. 12. Left bundle branch block, left anterior hemiblock 13. Status post loop colostomy, postop day 2. 14. Sepsis, secondary to colovesicular, colovaginal fistula. 15. Encephalopathy. 16. History of anxiety, history of dementia, history of Parkinson disease, history of depression, history of hypovitaminosis D. 1. 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 2. Status post loop colostomy. 3. 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 4. Atrial fibrillation with rapid ventricular response. 5. Left anterior hemiblock. 6. Left bundle branch block. 7. Transient hypotension and bradycardia. 8. Hypernatremia. 9. Acute kidney injury with underlying chronic kidney disease stage III/IV. 10. Indeterminate troponin. 11. Leukocytosis with granulocytosis. 12. Transient coagulopathy. 13. Hyponatremia. 14. Prerenal kidney injury. 15. Severe gait dysfunction and deconditioning. 16. Status post colostomy diversion. 17. Paroxysmal atrial fibrillation converting to normal sinus rhythm with left axis deviation, left anterior hemiblock, left bundle branch block. 18. Urinary retention. 19. History of dementia, Parkinson disease. 20. Transient confusional state. 21. Transient agitation (resolved). 22. Deconditioning. 23. Gait dysfunction. 24. Status post loop colostomy, postop day 1. 25. Deconditioning. 26. Gait dysfunction. 27. Questionable possible functional quadriplegia. 28. History of anxiety. 29. History of dementia. 30. History of Parkinson disease. 31. History of hypovitaminosis D. 1. Sepsis with leukocytosis and granulocytosis. 2. New onset atrial fibrillation with rapid ventricular response and indeterminate troponin. 3. Moderate aortic regurgitation, mild aortic stenosis, moderate mitral regurgitation with left ventricular ejection fraction of 55%. 4. Left anterior hemiblock. 5. Questionable left bundle branch block. 6. Lateral wall ischemic changes on the EKG. 7. Severe deconditioning, gait dysfunction versus questionable and possible functional quadriplegia. 8. Sepsis, secondary to rectovesical and rectovaginal fistula and inadequate drainage of urine and stool. 9. Status post treatment for Escherichia coli urinary tract infection, secondary to rectovesical, rectovaginal fistula. 10. Acute kidney injury. 11. Transient hypotension. 12. History of hypertension. 13. Anemia. 14. Leukocytosis. 15. Normocytic iron deficiency anemia. 16. Mild coagulopathy, secondary to anticoagulation. 17. Hypokalemia. 18. Acute kidney injury with underlying chronic kidney disease stage IV. 19. Hypoalbuminemia. 20. Indeterminate troponin. 21. Hypotension with sepsis and new onset atrial fibrillation with rapid ventricular response. 22. History of Parkinson disease, dementia, history of anxiety, depression, history of hypovitaminosis D. 1. Recurrent urinary retention with urinary bladder distention. 2. Questionable systemic inflammatory response syndrome versus sepsis with low- grade fever of 105, tachycardia 3. Leukocytosis with granulocytosis. 4. Normocytic anemia. 5. Hypokalemia. 6. Acute kidney injury. 7. Mild hypoalbuminemia 8. Severe deconditioning, gait dysfunction and bedridden status with questionable functional quadriplegia. 9. History of dementia, depression, Parkinson's disease, history of hypertension. 10. Hypovitaminosis D. 11. Deconditioning. 1. Recurrent urinary retention with urinary bladder distention. 2. Severe deconditioning and gait dysfunction. 3. Functional quadriplegia with severe deconditioning and gait dysfunction and bedridden status. 4. Small bilateral pleural effusion and bibasilar atelectasis. 5. Questionable sigmoid colitis with mural thickening. 6. Urinary retention with distended urinary bladder with air fluid level. 7. Hypertension. 8. Tachycardia. 9. Leukocytosis with granulocytosis. 10. Questionable systemic inflammatory response syndrome. 11. Normocytic anemia. 12. Acute recurrent kidney injury. 13. 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 14. Normocytic iron deficiency anemia. 15. Chronic kidney disease stage II/III. 1. Severe deconditioning, severe gait dysfunction and possible questionable functional quadriplegia. 2. Urinary retention. 3. Colovesicular and colovaginal fistula. 4. Abdominal distention, probably secondary to urinary retention. 5. Sepsis secondary to Escherichia coli urinary tract infection and colovesicular and colovaginal fistula. 6. Hypertension. 7. Questionable ileus with constipation, fecal retention, fecal stasis. 8. Asymptomatic hypoxemia. 9. Status post acute renal failure. 10. Normocytic iron deficiency anemia. 11. Status post IV Venofer infusion. 12. Leukocytosis with granulocytosis. 13. Status post acute renal failure. 14. Hypocalcemia. 15. Mild hypoalbuminemia. 16. History of anxiety disorder, history of dementia, history of depression, history of Parkinson's disease, hypovitaminosis D. 1. Severe deconditioning and gait dysfunction. 2. Deconditioning. 3. Questionable constipation and fecal retention. 4. Asymptomatic hypoxemia. 5. Leukocytosis with granulocytosis. 6. Normocytic anemia. 7. Prerenal kidney injury. 8. Status post acute renal failure. 9. 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 10. Deconditioning. 11. Gait dysfunction. 12. Sepsis secondary to Escherichia coli urinary tract infection. 13. History of colovesicular colovaginal fistula. 14. Dementia. 15. History of Parkinson disease. 16. History of anxiety disorder. 17. History of constipation. 1. Severe deconditioning and gait dysfunction. 2. Possible functional quadriplegia. 3. Nonproteinuric chronic kidney disease stage III. 4. Acute renal failure, secondary to prerenal kidney injury (resolved). 5. Mild venous stasis of the lower extremities. 6. Sepsis with Escherichia coli urinary tract infection. 7. Rectovesical and rectovaginal fistula. 8. Deconditioning. 9. Gait dysfunction. 10. Normocytic anemia. 11. Normocytic iron deficiency anemia. 12. Leukocytosis with granulocytosis. 13. Hypocalcemia. 14. Hypokalemia. 1. Severe gait dysfunction and deconditioning and possible functional quadriplegia. 2. Sepsis secondary to Escherichia coli urinary tract infection with history of rectovaginal, rectovesical fistula. 3. Escherichia coli urinary tract infection. 4. Acute renal failure. 5. Hypoxemia. 6. Normocytic anemia. 7. Leukocytosis with granulocytosis. 8. Status post acute renal failure. 9. Hypocalcemia. 10. Mild hypoalbuminemia. 11. History of dementia, Parkinson's disease, anxiety, and possible depression. 12. Prerenal kidney injury. 13. Non-proteinuric chronic kidney disease stage III. 14. History of anxiety. 15. History of dementia, history of depression, history of hypovitaminosis D. 1. Severe deconditioning and gait dysfunction and possible bedridden status and possible functional quadriplegia. 2. Sepsis secondary to a Escherichia coli urinary tract infection with history of vaginal and rectovesical fistula. 3. Deconditioning. 4. Escherichia coli urinary tract infection. 5. Acute renal failure. 6. History of hypertension. 7. Asymptomatic hypoxemia. 8. Kyphosis of the thoracic spine. 9. Hypoalbuminemia. 10. Hypocalcemia. 11. Normocytic anemia. 12. Hypokalemia. 13. Oropharyngeal dysphagia with impulsive and unsafe eating behaviors. 14. History of anxiety disorder. 15. History of dementia. 16. History of Parkinson disease. 17. History of normocytic iron deficiency anemia. 1. Severe gait dysfunction, deconditioning and bedridden status. 2. Questionable and possible functional quadriplegia. 3. Escherichia coli urinary tract infection. 4. Acute renal failure. 5. Systemic inflammatory response syndrome versus possible sepsis secondary to Escherichia coli urinary tract infection. 6. Colovesical and colovaginal fistula. 7. History of hypertension. 8. Asymptomatic hypoxemia. 9. Normocytic iron deficiency anemia. 10. Normal potassium. 11 Acute renal failure with mild prerenal kidney injury. 12. Non-proteinuric chronic kidney disease stage III/IV. 13. Hypocalcemia. 14. Hypoalbuminemia. 15. Malnutrition. 16. History of anxiety disorder. 17. History of dementia. 18. Iron deficiency normocytic anemia. 19. History of anxiety disorder. 20. Hypovitaminosis D. 21. Hyperuricemia. 22. Deconditioning. 1. Acute renal failure. 2. Systemic inflammatory response syndrome versus possible sepsis secondary to Escherichia coli urinary tract infection. 3. Colovesicular and colovaginal fistula. 4. Acute renal failure. 5. Poor compliance. 6. Severe gait deconditioning and severe gait dysfunction and bedridden status. 7. Functional quadriplegia. 8. Transient asymptomatic hypoxemia. 9. Leukocytosis with granulocytosis. 10. Normocytic iron deficiency anemia. 11. Transient hypernatremia. 12. Acute renal failure. 13. Hyperuricemia. 14. Transaminitis. 15. . 16. Hyperuricemia. 17. Iron deficiency normocytic anemia. 18. Escherichia coli urinary tract infection with proteinuria, hematuria, bacteriuria and pyuria. 19. Sepsis secondary to Escherichia coli urinary tract infection. 20. Mild aortic stenosis. 21. Moderate aortic regurgitation, moderate mitral regurgitation and mild tricuspid regurgitation. 22. History of anxiety disorder, history of dementia, history of hypovitaminosis D and hyperuricemia. 1. Acute renal failure. 2. Questionable sepsis with leukocytosis, granulocytosis. 3. Normocytic anemia. 4. Hypertension. 5. History of dementia. 6. Leukocytosis with granulocytosis. 7. Normocytic anemia. 8. Transient hypernatremia. 9. Acute kidney injury and acute renal failure (resolving). 10. Severe gait dysfunction, deconditioning and possible functional quadriplegia. 11. Hyperuricemia. 12. Transaminitis. 13. Hyperprocalcitoninemia. 14. Hypovitaminosis D. 15. Acute renal failure and acute kidney injury. 16. Escherichia coli urinary tract infection with hematuria, pyuria, bacteriuria. 17. Systemic inflammatory response syndrome with possible sepsis secondary to Escherichia coli urinary tract infection with ____vaginal and ____ fistula. 18. Prerenal azotemia. 19. Chronic kidney disease, stage, IIIB, nonproteinuric. 20. Severe deconditioning and gait dysfunction. 21. Chronic ____, ____ fistula with Escherichia coli urinary tract infection. 22. Moderate aortic and moderate mitral regurgitation. 23. Mild mitral valve prolapse, calcified aortic valve with mild aortic stenosis and moderate aortic regurgitation and moderate mitral regurgitation and mild tricuspid regurgitation with left ventricular ejection fraction of 55%. 24. Gait dysfunction. 25. Deconditioning 26. Anxiety disorder. 27. Dementia. 28. Hypovitaminosis D. 29. Hyperuricemia. 1. Acute renal failure. 2. Questionable sepsis with leukocytosis and granulocytosis. 3. Normocytic anemia. 4. Questionable hemorrhagic cystitis. 5. Questionable hemorrhagic cystitis with intrinsic mural and perivesicular abnormalities and dependent echogenic material debris in the bladder. 6. Left bundle-branch block and left axis deviation. 7. Left lower lung pleural thickening. 8. Cardiomegaly. 9. Sigmoid diverticulosis. 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 11. 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 12. Status post hysterectomy. 13. Sigmoid diverticulosis. 14. Leukocytosis with granulocytosis. 15. Normocytic anemia. 16. Hyponatremia. 17. Slow-resolving acute renal failure. 18. Hyperuricemia. 19. History of dementia. 20. Deconditioning. 21. Gait dysfunction. 22. Recurrent fall. 23. Questionable functional quadriplegia. 24. Hypovitaminosis D. 25. History of dyslipidemia. 26. History of angina, history of hypertension, history of dementia. 1. Altered mental status, etiology undetermined. 2. Acute renal failure and acute kidney injury and prerenal kidney injury. 3. Questionable and possible urinary tract infection. 4. Recurrent fall and gait dysfunction. 5. History of dementia. 6. Questionable swallowing and feeding dysfunction. 7. Leukocytosis with granulocytosis. 8. Normocytic anemia. 9. Hyperuricemia. 10. Hyperphosphatemia. 11. Transaminitis. 12. Elevated BNP with history of congestive heart failure. 13. Hematuria, pyuria, bacteriuria. 14. Left bundle branch block and left axis deviation. 15. Generalized osteopenia and thoracolumbar spondylosis with old healed left rib fracture. 16. Status post mastectomy for left breast carcinoma. 17. Gait dysfunction. 18. Recurrent falls. 19. 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 20. Questionable cystitis with thickened urinary bladder wall. 21. Questionable echogenic urinary bladder mass. 22. History of dementia. 23. History of hypovitaminosis D, history of anxiety, history of dementia, history of congestive heart failure, history of angina, history of dementia. 24. History of colovesicular and colovaginal fistula. 1. questionable atrial fibrillation with rapid ventricular response. 2. Left anterior hemiblock. 3. Hypertensive cardiovascular disease. 4. Questionable lateral ischemic changes. 1. Asymptomatic intermittent nonsustained ventricular tachycardia. 2. Volume overload. 3. History of dementia, history of depression, history of anxiety, history of Parkinson's disease. 4. Hypovitaminosis D. 5. Hypokalemia. 6. Acute kidney injury. PLAN: At this time, I have spoken to the patient's and the son at bedside at length, and I have also spoken to the patient's primary care physician, Dr. Rene Finn. All are in agreement for home hospice evaluation which has been ordered. CURRENT MEDICATIONS: 1. Ativan 0.5 twice a day. 2. Daptomycin ____ mg x 1 dose. 3. The patient is on doxycycline 100 mg IV q. 12. 4. Exelon capsule 4.5 mg twice a day. 5. Selenium 200 mcg daily. 6. Klonopin 4 mg at bedtime. 7. Lasix 20 mg IV q. 12. 8. Meropenem 1 g IV q. 12. 9. Protonix 40 IV daily. 10. Requip 8 mg daily. 11. Tenormin was started by Dr. Jose 12.5 twice a day. 12. Verapamil 2.5 mg IV q. 6 p.r.n. 13. Vitamin D3 at 2000 units daily. 14. Xopenex nebulizer 0.63 mg every 6 hours. The patient's repeat chest x-ray ordered. The patient is on BiPAP 15/8, 50%, rate of 18. The patient is on occupational therapy, physical therapy. At present, the patient's overall prognosis is guarded to poor. Condition is critical and declining which has been extensively explained to the patient's family, including the son and the , and all are requesting home hospice evaluation and referral. TIME SPENT IN THE ENTIRE MANAGEMENT: More than 35 minutes. Dictated and electronically signed; not read. Rigo Vargas MD cc: [id number] TT: 11/20/2016 11:41:30 Confirmation # [id number] Dictation # [id number] mn 11/20/2016 11:19:34 [email or web address]
--- NOTE | 2016-11-20 14:28 | CP.CCUPN ---
<Werner Lopez - Last Filed: 11/20/16 14:23> CCU Subjective - Physician Review Subjective (Free Text): 11/20/16 14:23 Patient seen and examined at bedside in ICU. Today is hospital day 9. Overnight, patient transferred to the ICU for initiation of and monitoring post- hemodialysis. Today, after discussions with the Surgical attending and ICU staff, patient and family at bedside have opted for comfort-care/hospice. Emotional/Spiritual support offered, questions answered regarding process and staff involved. Patient and appear at peace with this decision. CCU Objective - Vital Signs / Intake & Output Vital Signs (Last 4 hours): Vital Signs Pulse Resp BP Pulse Ox 11/20/16 12:00 84 28 H 122/45 L 99 11/20/16 11:50 82 24 97 11/20/16 11:40 82 23 94 L 11/20/16 11:30 81 25 H 89 L 11/20/16 11:20 78 17 92 L 11/20/16 11:10 78 19 90 L 11/20/16 11:00 76 37 H 88 L 11/20/16 10:50 76 23 87 L 11/20/16 10:40 76 22 86 L 11/20/16 10:30 75 27 H 88 L Intake and Output (Last 8hrs): Intake & Output 11/19/16 11/20/16 11/20/16 22:59 06:59 14:59 Intake Total 300 Output Total 1830 Balance -1530 Intake: IV 300 left jugular 300 Oral 0 Output: Chest Tube Drainage 300 Left Anterior Chest 300 Urine 30 Urine, Voided 30 Other 1500 Other: Voiding Method Indwelling Catheter - Physical Exam Head: Positive for: Atraumatic, Normocephalic Extroacular Muscles: Positive for: EOMI. Negative for: Gaze Palsy, Entrapment Conjunctiva: Positive for: Normal Mouth: Positive for: Moist Mucous Membranes, Other (initially wearing BiPAP, transitioned to NC) Nose (External): Positive for: Atraumatic. Negative for: Abrasion, Contusion, Laceration Respiratory/Chest: Positive for: Wheezes, Rales (diffuse, all walls), Other ( wearing Bipap initially, now on NC O2 and breathing comfortably). Negative for : Clear to Auscultation, Good Air Exchange, Respiratory Distress, Accessory Muscle Use Cardiovascular: Positive for: Regular Rate and Rhythm, Normal S1, S2. Negative for: Murmurs Abdomen: Positive for: Ostomy Tubes. Negative for: Tenderness, Mass/ Organomegaly Upper Extremity: Positive for: Normal Inspection, NORMAL PULSES Lower Extremity: Negative for: Cyanosis, Erythema, Deformity Neurological: Positive for: Speech Normal, Motor Func Grossly Intact Other physical findings (Free Text): awake and alert, answering questions appropriately, following commands appropriately - Medications Active Medications: Active Medications Generic Name Dose Route Start Last Admin Trade Name Freq PRN Reason Stop Dose Admin Atenolol 12.5 mg 11/20/16 10:00 11/20/16 10:15 Tenormin PO Not Given BID BETHEL Cholecalciferol 2,000 iu 11/13/16 10:00 11/20/16 10:16 Vitamin D PO Not Given DAILY BETHEL Clonazepam 4 mg 11/12/16 22:00 11/18/16 22:21 Klonopin PO Not Given HS BETHEL Protocol Furosemide 20 mg 11/17/16 22:00 11/20/16 10:20 Lasix IVP 20 mg Q12H BETHEL Administration Home Med 1 unit 11/13/16 15:08 11/20/16 10:15 Home Med PO Not Given DAILY BETHEL Dextrose 1,000 mls @ 50 mls/hr 11/18/16 10:00 11/18/16 10:21 Dextrose 5% In Water 1000 Ml IV 50 mls/hr .Q20H BETHEL Administration Meropenem 1g/NS 100mL IVPB 1 gm in 100 mls @ 100 mls/hr 11/19/16 22:00 10:30 Meropenem 1g/Ns 100ml Ivpb IVPB 11/26/16 22:01 100 mls/hr Q12 BETHEL Administration Protocol Doxycycline Hyclate 100 mg/ 100 mls @ 100 mls/hr 11/19/16 22:00 11/20/16 10: 21 Sodium Chloride IVPB 100 mls/hr Q12 BETHEL Administration Protocol Levalbuterol HCl 0.63 mg 11/16/16 15:30 11/20/16 13:28 Xopenex IH 0.63 mg [id number] BETHEL Administration Lorazepam 0.5 mg 11/12/16 18:00 11/19/16 17:32 Ativan PO Not Given BID BETHEL Protocol Pantoprazole Sodium 40 mg 11/20/16 10:00 11/20/16 10:22 Protonix Inj IVP 40 mg DAILY BETHEL Administration Rivastigmine 4.5 mg 11/12/16 18:00 11/20/16 08:50 Exelon Cap PO Not Given 0800,1800 BETHEL Ropinirole HCl 8 mg 11/13/16 08:00 11/20/16 08:52 Requip PO Not Given 0800 BETHEL Verapamil HCl 2.5 mg 11/19/16 18:52 Verapamil Inj IVP Q6H PRN for Heart rate >130 - Patient Studies Lab Studies: Microbiology Studies 11/19/16 13:09 Blood Culture - Preliminary Blood-Venous NO GROWTH AFTER 24 HOURS 11/19/16 13:09 Blood Culture - Preliminary Blood-Venous NO GROWTH AFTER 24 HOURS 11/17/16 16:40 Blood Culture - Preliminary Blood-Venous NO GROWTH AFTER 48 HOURS 11/17/16 16:10 Blood Culture - Preliminary Blood-Venous NO GROWTH AFTER 48 HOURS 11/16/16 11:19 Urine Culture - Final Urine,Ramirez Vancomycin Resistant E.faecium Lab Studies 11/20/16 11/20/16 11/20/16 Range/Units 07:34 06:00 06:00 WBC (4.5-11.0) 10^3/ul RBC (3.5-6.1) 10^6/uL Hgb (12.0-16.0) gm/dL Hct (36.0-48.0) % MCV (80.0-105.0) fL MCH (25.0-35.0) pg MCHC (31.0-37.0) g/dl RDW (11.5-14.5) % Plt Count (120.0-450.0) 10^3/uL MPV (7.0-11.0) fl Gran % Lymph % (Auto) [place] % (Auto) Eos % (Auto) Baso % (Auto) Gran # Lymph # [place] # Eos # Baso # Neutrophils % (Manual) (50.0-70.0) % Band Neutrophils % (0-2) % Lymphocytes % (Manual) (22.0-35.0) % Monocytes % (Manual) (1.0-6.0) % Myelocytes % % Nucleated RBC % % Platelet Evaluation (NORMAL) Polychromasia Anisocytosis (manual) PT 13.3 H (9.9-11.8) Seconds INR 1.23 H (0.93-1.08) APTT 29.6 (23.7-30.8) Seconds pCO2 70 H 34 L (35-45) mm/Hg pO2 329.0 H 33.0 L* (80-100) mm/Hg HCO3 21.2 7.3 L* (21-28) mmol/L ABG pH 7.09 L* 6.94 L* (7.35-7.45) ABG Total CO2 23.3 8.3 L (22-28) mmol.L ABG O2 Saturation 97.7 64.1 L (95-98) % ABG O2 Content 17.0 4.3 L (15-23) ML/dl ABG Base Excess -9.4 L -22.6 L (-2.0-3.0) mmol/L ABG Hemoglobin 11.9 4.8 L (11.7-17.4) g/dL ABG Carboxyhemoglobin 0.4 L 0.6 (0.5-1.5) % POC ABG HHb (Measured) 2.3 35.6 H (0-5) % ABG Methemoglobin 0.9 0.1 (0.0-3.0) % ABG O2 Capacity 17.4 6.7 L (16-24) mL/dl Hgb O2 Saturation 96.3 63.6 L (95.0-98.0) % FiO2 100.0 100.0 % Sodium (132-148) mmol/L Potassium (3.6-5.0) mmol/L Chloride (98-107) mmol/L Carbon Dioxide (21-33) mmol/L Anion Gap (10-20) BUN (7-21) mg/dL Creatinine (0.5-1.4) mg/dL Est GFR ( Amer) Est GFR (Non-Af Amer) Random Glucose (70-110) mg/dL Calcium (8.4-10.5) mg/dL Phosphorus (2.5-4.5) mg/dL Magnesium (1.7-2.2) mg/dL Ferritin ng/mL Total Bilirubin (0.2-1.3) mg/dL Direct Bilirubin (0.0-0.4) mg/dL AST (15-39) U/L ALT (7-56) U/L Alkaline Phosphatase (38-133) U/L Total Protein (5.8-8.3) g/dL Albumin (3.0-4.8) g/dL Globulin gm/dL Albumin/Globulin Ratio (1.1-1.8) Procalcitonin (0.19-0.49) NG/ML Hep Bs Antigen (NEGATIVE) Hep Bs Antibody (NEGATIVE) Hep B Core IgM Ab (NEGATIVE) Hepatitis C Antibody (NEGATIVE) 11/20/16 11/20/16 11/19/16 Range/Units 06:00 06:00 23:40 WBC 15.4 H (4.5-11.0) 10^3/ul RBC 3.83 (3.5-6.1) 10^6/uL Hgb 12.0 (12.0-16.0) gm/dL Hct 40.3 (36.0-48.0) % MCV 105.2 H (80.0-105.0) fL MCH 31.3 (25.0-35.0) pg MCHC 29.8 L (31.0-37.0) g/dl RDW 21.3 H (11.5-14.5) % Plt Count 238 (120.0-450.0) 10^3/uL MPV 10.1 (7.0-11.0) fl Gran % 81.6 H Lymph % (Auto) 10.8 L [place] % (Auto) 7.5 H Eos % (Auto) 0.0 L Baso % (Auto) 0.1 Gran # 12.54 H Lymph # 1.7 [place] # 1.2 H Eos # 0.0 Baso # 0.01 Neutrophils % (Manual) (50.0-70.0) % Band Neutrophils % (0-2) % Lymphocytes % (Manual) (22.0-35.0) % Monocytes % (Manual) (1.0-6.0) % Myelocytes % % Nucleated RBC % % Platelet Evaluation (NORMAL) Polychromasia Anisocytosis (manual) PT (9.9-11.8) Seconds INR (0.93-1.08) APTT (23.7-30.8) Seconds pCO2 (35-45) mm/Hg pO2 (80-100) mm/Hg HCO3 (21-28) mmol/L ABG pH (7.35-7.45) ABG Total CO2 (22-28) mmol.L ABG O2 Saturation (95-98) % ABG O2 Content (15-23) ML/dl ABG Base Excess (-2.0-3.0) mmol/L ABG Hemoglobin (11.7-17.4) g/dL ABG Carboxyhemoglobin (0.5-1.5) % POC ABG HHb (Measured) (0-5) % ABG Methemoglobin (0.0-3.0) % ABG O2 Capacity (16-24) mL/dl Hgb O2 Saturation (95.0-98.0) % FiO2 % Sodium 147 (132-148) mmol/L Potassium 5.2 H (3.6-5.0) mmol/L Chloride 115 H (98-107) mmol/L Carbon Dioxide 25 (21-33) mmol/L Anion Gap 12 (10-20) BUN 49 H (7-21) mg/dL Creatinine 2.5 H (0.5-1.4) mg/dL Est GFR ( Amer) 22 Est GFR (Non-Af Amer) 19 Random Glucose 83 (70-110) mg/dL Calcium 8.0 L (8.4-10.5) mg/dL Phosphorus (2.5-4.5) mg/dL Magnesium 2.0 (1.7-2.2) mg/dL Ferritin ng/mL Total Bilirubin 0.8 (0.2-1.3) mg/dL Direct Bilirubin 0.8 H (0.0-0.4) mg/dL AST 75 H (15-39) U/L ALT 73 H (7-56) U/L Alkaline Phosphatase 120 (38-133) U/L Total Protein 6.9 (5.8-8.3) g/dL Albumin 2.9 L (3.0-4.8) g/dL Globulin 3.9 gm/dL Albumin/Globulin Ratio 0.7 L (1.1-1.8) Procalcitonin (0.19-0.49) NG/ML Hep Bs Antigen (NEGATIVE) Hep Bs Antibody Negative (NEGATIVE) Hep B Core IgM Ab (NEGATIVE) Hepatitis C Antibody (NEGATIVE) 04/26/17 04/26/17 04/26/17 Range/Units 23:40 23:33 09:30 WBC 14.3 H (4.5-11.0) 10^3/ul RBC 3.88 (3.5-6.1) 10^6/uL Hgb 12.4 (12.0-16.0) gm/dL Hct 40.5 (36.0-48.0) % MCV 104.4 (80.0-105.0) fL MCH 32.0 (25.0-35.0) pg MCHC 30.6 L (31.0-37.0) g/dl RDW 21.3 H (11.5-14.5) % Plt Count 358 (120.0-450.0) 10^3/uL MPV 10.3 (7.0-11.0) fl Gran % Acute Care Registered Nurse Lymph % (Auto) Acute Care Registered Nurse [place] % (Auto) Acute Care Registered Nurse Eos % (Auto) Acute Care Registered Nurse Baso % (Auto) Acute Care Registered Nurse Gran # Acute Care Registered Nurse Lymph # Acute Care Registered Nurse [place] # Acute Care Registered Nurse Eos # Acute Care Registered Nurse Baso # Acute Care Registered Nurse Neutrophils % (Manual) 70 (50.0-70.0) % Band Neutrophils % 6 H (0-2) % Lymphocytes % (Manual) 16 L (22.0-35.0) % Monocytes % (Manual) 6 (1.0-6.0) % Myelocytes % 2 % Nucleated RBC % 1 % Platelet Evaluation Normal (NORMAL) Polychromasia 1+ Anisocytosis (manual) 1+ PT (9.9-11.8) Seconds INR (0.93-1.08) APTT (23.7-30.8) Seconds pCO2 (35-45) mm/Hg pO2 (80-100) mm/Hg HCO3 (21-28) mmol/L ABG pH (7.35-7.45) ABG Total CO2 (22-28) mmol.L ABG O2 Saturation (95-98) % ABG O2 Content (15-23) ML/dl ABG Base Excess (-2.0-3.0) mmol/L ABG Hemoglobin (11.7-17.4) g/dL ABG Carboxyhemoglobin (0.5-1.5) % POC ABG HHb (Measured) (0-5) % ABG Methemoglobin (0.0-3.0) % ABG O2 Capacity (16-24) mL/dl Hgb O2 Saturation (95.0-98.0) % FiO2 % Sodium 148 (132-148) mmol/L Potassium 5.5 H (3.6-5.0) mmol/L Chloride 116 H (98-107) mmol/L Carbon Dioxide 23 (21-33) mmol/L Anion Gap 15 (10-20) BUN 60 H (7-21) mg/dL Creatinine 2.7 H (0.5-1.4) mg/dL Est GFR ( Amer) 21 Est GFR (Non-Af Amer) 17 Random Glucose 82 (70-110) mg/dL Calcium 8.3 L (8.4-10.5) mg/dL Phosphorus 7.3 H (2.5-4.5) mg/dL Magnesium 2.1 (1.7-2.2) mg/dL Ferritin 1680.0 ng/mL Total Bilirubin 0.8 (0.2-1.3) mg/dL Direct Bilirubin (0.0-0.4) mg/dL AST 75 H (15-39) U/L ALT 68 H (7-56) U/L Alkaline Phosphatase 109 (38-133) U/L Total Protein 7.0 (5.8-8.3) g/dL Albumin 2.9 L (3.0-4.8) g/dL Globulin 4.1 gm/dL Albumin/Globulin Ratio 0.7 L (1.1-1.8) Procalcitonin 2.48 H (0.19-0.49) NG/ML Hep Bs Antigen Negative (NEGATIVE) Hep Bs Antibody (NEGATIVE) Hep B Core IgM Ab Negative (NEGATIVE) Hepatitis C Antibody Negative (NEGATIVE) Laboratory Results - last 24 hr 11/19/16 11/19/16 11/19/16 09:30 23:33 23:40 WBC 14.3 H RBC 3.88 Hgb 12.4 Hct 40.5 MCV 104.4 MCH 32.0 MCHC 30.6 L RDW 21.3 H Plt Count 358 MPV 10.3 Gran % Acute Care Registered Nurse Lymph % (Auto) Acute Care Registered Nurse [place] % (Auto) Acute Care Registered Nurse Eos % (Auto) Acute Care Registered Nurse Baso % (Auto) Acute Care Registered Nurse Gran # Acute Care Registered Nurse Lymph # Acute Care Registered Nurse [place] # Acute Care Registered Nurse Eos # Acute Care Registered Nurse Baso # Acute Care Registered Nurse Neutrophils % (Manual) 70 Band Neutrophils % 6 H Lymphocytes % (Manual) 16 L Monocytes % (Manual) 6 Myelocytes % 2 Nucleated RBC % 1 Platelet Evaluation Normal Polychromasia 1+ Anisocytosis (manual) 1+ PT INR APTT pCO2 pO2 HCO3 ABG pH ABG Total CO2 ABG O2 Saturation ABG O2 Content ABG Base Excess ABG Hemoglobin ABG Carboxyhemoglobin POC ABG HHb (Measured) ABG Methemoglobin ABG O2 Capacity Hgb O2 Saturation FiO2 Sodium 148 Potassium 5.5 H Chloride 116 H Carbon Dioxide 23 Anion Gap 15 BUN 60 H Creatinine 2.7 H Est GFR ( Amer) 21 Est GFR (Non-Af Amer) 17 Random Glucose 82 Calcium 8.3 L Phosphorus 7.3 H Magnesium 2.1 Ferritin 1680.0 Total Bilirubin 0.8 Direct Bilirubin AST 75 H ALT 68 H Alkaline Phosphatase 109 Total Protein 7.0 Albumin 2.9 L Globulin 4.1 Albumin/Globulin Ratio 0.7 L Procalcitonin 2.48 H Hep Bs Antigen Negative Hep Bs Antibody Hep B Core IgM Ab Negative Hepatitis C Antibody Negative 11/19/16 11/20/16 11/20/16 23:40 06:00 06:00 WBC 15.4 H RBC 3.83 Hgb 12.0 Hct 40.3 MCV 105.2 H MCH 31.3 MCHC 29.8 L RDW 21.3 H Plt Count 238 MPV 10.1 Gran % 81.6 H Lymph % (Auto) 10.8 L [place] % (Auto) 7.5 H Eos % (Auto) 0.0 L Baso % (Auto) 0.1 Gran # 12.54 H Lymph # 1.7 [place] # 1.2 H Eos # 0.0 Baso # 0.01 Neutrophils % (Manual) Band Neutrophils % Lymphocytes % (Manual) Monocytes % (Manual) Myelocytes % Nucleated RBC % Platelet Evaluation Polychromasia Anisocytosis (manual) PT INR APTT pCO2 pO2 HCO3 ABG pH ABG Total CO2 ABG O2 Saturation ABG O2 Content ABG Base Excess ABG Hemoglobin ABG Carboxyhemoglobin POC ABG HHb (Measured) ABG Methemoglobin ABG O2 Capacity Hgb O2 Saturation FiO2 Sodium 147 Potassium 5.2 H Chloride 115 H Carbon Dioxide 25 Anion Gap 12 BUN 49 H Creatinine 2.5 H Est GFR ( Amer) 22 Est GFR (Non-Af Amer) 19 Random Glucose 83 Calcium 8.0 L Phosphorus Magnesium 2.0 Ferritin Total Bilirubin 0.8 Direct Bilirubin 0.8 H AST 75 H ALT 73 H Alkaline Phosphatase 120 Total Protein 6.9 Albumin 2.9 L Globulin 3.9 Albumin/Globulin Ratio 0.7 L Procalcitonin Hep Bs Antigen Hep Bs Antibody Negative Hep B Core IgM Ab Hepatitis C Antibody 11/20/16 11/20/16 11/20/16 06:00 06:00 07:34 WBC RBC Hgb Hct MCV MCH MCHC RDW Plt Count MPV Gran % Lymph % (Auto) [place] % (Auto) Eos % (Auto) Baso % (Auto) Gran # Lymph # [place] # Eos # Baso # Neutrophils % (Manual) Band Neutrophils % Lymphocytes % (Manual) Monocytes % (Manual) Myelocytes % Nucleated RBC % Platelet Evaluation Polychromasia Anisocytosis (manual) PT 13.3 H INR 1.23 H APTT 29.6 pCO2 34 L 70 H pO2 33.0 L* 329.0 H HCO3 7.3 L* 21.2 ABG pH 6.94 L* 7.09 L* ABG Total CO2 8.3 L 23.3 ABG O2 Saturation 64.1 L 97.7 ABG O2 Content 4.3 L 17.0 ABG Base Excess -22.6 L -9.4 L ABG Hemoglobin 4.8 L 11.9 ABG Carboxyhemoglobin 0.6 0.4 L POC ABG HHb (Measured) 35.6 H 2.3 ABG Methemoglobin 0.1 0.9 ABG O2 Capacity 6.7 L 17.4 Hgb O2 Saturation 63.6 L 96.3 FiO2 100.0 100.0 Sodium Potassium Chloride Carbon Dioxide Anion Gap BUN Creatinine Est GFR ( Amer) Est GFR (Non-Af Amer) Random Glucose Calcium Phosphorus Magnesium Ferritin Total Bilirubin Direct Bilirubin AST ALT Alkaline Phosphatase Total Protein Albumin Globulin Albumin/Globulin Ratio Procalcitonin Hep Bs Antigen Hep Bs Antibody Hep B Core IgM Ab Hepatitis C Antibody EKG/Cardiology Studies: Cardiology / EKG Studies 11/20/16 07:00 EKG [ELECTROCARDIOGRAM] DAILY Comment: Reason For Exam: AFIB PAUSES Review of Systems - Review of Systems Review of Systems: patient only complaining of discomfort from Bipap mask on face and thirstiness, no other complaints or symptoms endorsed Critical Care Progress Note - Nutrition Nutrition: Nutrition Category Date Time Status Liquid Diet [DIET] Diets 04/26/17 Dinner Ordered Assessment/Plan - Assessment and Plan (Free Text) Assessment: This is an 81 yo F with PMH of HTN, Breast Cancer in remission, Parkinson's, 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 Today, patient and family have made the decision to initiate comfort-care and hospice. Plan: Neuro: -awake and alert, appropriate mentation, answers questions and follows commands appropriately -moving extremities spontaneously -no active issues requring intervention Pulm: -Transitioned from Bipap to Nasal Canula for comfort as per patient's wishes -Speaking clearly without gasping for air -Aspiration risk of comfort feeds explained to the family and patient in detail , patient and family expressed understanding and expressed desire for comfort feeds anyway, will comply with their wishes -Head of bed to 30 degrees, aspiration precautions Cardio: -RRR on exam and on bedside monitor -Normotensive, not currently on pressors; given desire for comfort-care/hospice , will hold off on any future use of pressors GI: -Aspiration risk of comfort feeds explained to the family and patient in detail , patient and family expressed understanding and expressed desire fo comfort feeds anyway, will comply with their wishes Renal: -s/p hemodialysis, given desire for comfort-care/hospice, further HD not indicated, Nephro aware ID: -no aggressive abx given hospice/comfort care, can given for symptom management or relief in setting of sx 2/2 infectious process Heme: -hgb stable, no active bleeding at this time Psych: -patient and family requesting hospice/comfort-care, patient does not appear overtly depressed or altered, answers questions logically and appropriately, requesting to go come -Palliative consulted, appreciate all recs Dispo: ICU, pending hospice/comfort-care setup as per Palliative FEN: comfort feeds Access: Peripheral IV, Dialysis cath Consults: Palliative, Surgery, ID, IR, Cardio, Nephro, Urology Patient seen, examined, and discussed with attending, Dr. Mayberry - Date & Time Date: 11/20/16 Time: 15:33 <Jesse Flood MD - Last Filed: 11/20/16 16:58> CCU Objective - Vital Signs / Intake & Output Vital Signs (Last 4 hours): Vital Signs Pulse Resp BP Pulse Ox 11/20/16 15:40 81 25 H 100 11/20/16 15:30 79 24 100 11/20/16 15:20 78 21 100 11/20/16 15:10 80 22 100 11/20/16 15:00 78 21 100 11/20/16 14:50 80 24 100 11/20/16 14:40 79 23 100 11/20/16 14:30 81 22 100 11/20/16 14:20 72 19 100 11/20/16 14:10 79 23 100 11/20/16 14:00 81 23 116/58 L 100 11/20/16 13:50 80 25 H 100 11/20/16 13:40 79 23 100 11/20/16 13:30 80 21 100 11/20/16 13:20 80 27 H 100 11/20/16 13:10 80 30 H 100 11/20/16 13:00 79 19 100 11/20/16 12:50 79 100 Intake and Output (Last 8hrs): Intake & Output 11/20/16 11/20/16 11/20/16 06:59 14:59 22:59 Intake Total 300 Output Total 1830 Balance -1530 Intake: IV 300 left jugular 300 Oral 0 Output: Chest Tube Drainage 300 Left Anterior Chest 300 Urine 30 Urine, Voided 30 Other 1500 - Medications Active Medications: Active Medications Generic Name Dose Route Start Last Admin Trade Name Freq PRN Reason Stop Dose Admin Atenolol 12.5 mg 11/20/16 10:00 11/20/16 10:15 Tenormin PO Not Given BID [facility] Cholecalciferol 2,000 iu 11/13/16 10:00 11/20/16 10:16 Vitamin D PO Not Given DAILY [facility] Clonazepam 4 mg 11/12/16 22:00 11/18/16 22:21 Klonopin PO Not Given HS [facility] Protocol Furosemide 20 mg 11/17/16 22:00 11/20/16 10:20 Lasix IVP 20 mg Q12H BETHEL Administration Home Med 1 unit 11/13/16 15:08 11/20/16 10:15 Home Med PO Not Given DAILY BETHEL Dextrose 1,000 mls @ 50 mls/hr 11/18/16 10:00 11/18/16 10:21 Dextrose 5% In Water 1000 Ml IV 50 mls/hr .Q20H BETHEL Administration Meropenem 1g/NS 100mL IVPB 1 gm in 100 mls @ 100 mls/hr 11/19/16 22:00 10:30 Meropenem 1g/Ns 100ml Ivpb IVPB 11/26/16 22:01 100 mls/hr Q12 BETHEL Administration Protocol Doxycycline Hyclate 100 mg/ 100 mls @ 100 mls/hr 11/19/16 22:00 11/20/16 10: 21 Sodium Chloride IVPB 100 mls/hr Q12 BETHEL Administration Protocol Levalbuterol HCl 0.63 mg 11/16/16 15:30 11/20/16 13:28 Xopenex IH 0.63 mg [id number] BETHEL Administration Lorazepam 0.5 mg 11/12/16 18:00 11/19/16 17:32 Ativan PO Not Given BID BETHEL Protocol Pantoprazole Sodium 40 mg 11/20/16 10:00 11/20/16 10:22 Protonix Inj IVP 40 mg DAILY BETHEL Administration Rivastigmine 4.5 mg 11/12/16 18:00 11/20/16 08:50 Exelon Cap PO Not Given 0800,1800 BETHEL Ropinirole HCl 8 mg 11/13/16 08:00 11/20/16 08:52 Requip PO Not Given 0800 BETHEL Verapamil HCl 2.5 mg 11/19/16 18:52 Verapamil Inj IVP Q6H PRN for Heart rate >130 - Patient Studies Lab Studies: Microbiology Studies 11/17/16 16:40 Blood Culture - Preliminary Blood-Venous NO GROWTH AFTER 3 DAYS 11/17/16 16:10 Blood Culture - Preliminary Blood-Venous NO GROWTH AFTER 3 DAYS 11/19/16 13:09 Blood Culture - Preliminary Blood-Venous NO GROWTH AFTER 24 HOURS 11/19/16 13:09 Blood Culture - Preliminary Blood-Venous NO GROWTH AFTER 24 HOURS Lab Studies 11/20/16 11/20/16 11/20/16 Range/Units 07:34 06:00 06:00 WBC (4.5-11.0) 10^3/ul RBC (3.5-6.1) 10^6/uL Hgb (12.0-16.0) gm/dL Hct (36.0-48.0) % MCV (80.0-105.0) fL MCH (25.0-35.0) pg MCHC (31.0-37.0) g/dl RDW (11.5-14.5) % Plt Count (120.0-450.0) 10^3/uL MPV (7.0-11.0) fl Gran % Lymph % (Auto) [place] % (Auto) Eos % (Auto) Baso % (Auto) Gran # Lymph # [place] # Eos # Baso # Neutrophils % (Manual) (50.0-70.0) % Band Neutrophils % (0-2) % Lymphocytes % (Manual) (22.0-35.0) % Monocytes % (Manual) (1.0-6.0) % Myelocytes % % Nucleated RBC % % Platelet Evaluation (NORMAL) Polychromasia Anisocytosis (manual) PT 13.3 H (9.9-11.8) Seconds INR 1.23 H (0.93-1.08) APTT 29.6 (23.7-30.8) Seconds pCO2 70 H 34 L (35-45) mm/Hg pO2 329.0 H 33.0 L* (80-100) mm/Hg HCO3 21.2 7.3 L* (21-28) mmol/L ABG pH 7.09 L* 6.94 L* (7.35-7.45) ABG Total CO2 23.3 8.3 L (22-28) mmol.L ABG O2 Saturation 97.7 64.1 L (95-98) % ABG O2 Content 17.0 4.3 L (15-23) ML/dl ABG Base Excess -9.4 L -22.6 L (-2.0-3.0) mmol/L ABG Hemoglobin 11.9 4.8 L (11.7-17.4) g/dL ABG Carboxyhemoglobin 0.4 L 0.6 (0.5-1.5) % POC ABG HHb (Measured) 2.3 35.6 H (0-5) % ABG Methemoglobin 0.9 0.1 (0.0-3.0) % ABG O2 Capacity 17.4 6.7 L (16-24) mL/dl Hgb O2 Saturation 96.3 63.6 L (95.0-98.0) % FiO2 100.0 100.0 % Sodium (132-148) mmol/L Potassium (3.6-5.0) mmol/L Chloride (98-107) mmol/L Carbon Dioxide (21-33) mmol/L Anion Gap (10-20) BUN (7-21) mg/dL Creatinine (0.5-1.4) mg/dL Est GFR ( Amer) Est GFR (Non-Af Amer) Random Glucose (70-110) mg/dL Calcium (8.4-10.5) mg/dL Phosphorus (2.5-4.5) mg/dL Magnesium (1.7-2.2) mg/dL Ferritin ng/mL Total Bilirubin (0.2-1.3) mg/dL Direct Bilirubin (0.0-0.4) mg/dL AST (15-39) U/L ALT (7-56) U/L Alkaline Phosphatase (38-133) U/L Total Protein (5.8-8.3) g/dL Albumin (3.0-4.8) g/dL Globulin gm/dL Albumin/Globulin Ratio (1.1-1.8) Procalcitonin (0.19-0.49) NG/ML Hep Bs Antigen (NEGATIVE) Hep Bs Antibody (NEGATIVE) Hep B Core IgM Ab (NEGATIVE) Hepatitis C Antibody (NEGATIVE) 11/20/16 11/20/16 11/19/16 Range/Units 06:00 06:00 23:40 WBC 15.4 H (4.5-11.0) 10^3/ul RBC 3.83 (3.5-6.1) 10^6/uL Hgb 12.0 (12.0-16.0) gm/dL Hct 40.3 (36.0-48.0) % MCV 105.2 H (80.0-105.0) fL MCH 31.3 (25.0-35.0) pg MCHC 29.8 L (31.0-37.0) g/dl RDW 21.3 H (11.5-14.5) % Plt Count 238 (120.0-450.0) 10^3/uL MPV 10.1 (7.0-11.0) fl Gran % 81.6 H Lymph % (Auto) 10.8 L [place] % (Auto) 7.5 H Eos % (Auto) 0.0 L Baso % (Auto) 0.1 Gran # 12.54 H Lymph # 1.7 [place] # 1.2 H Eos # 0.0 Baso # 0.01 Neutrophils % (Manual) (50.0-70.0) % Band Neutrophils % (0-2) % Lymphocytes % (Manual) (22.0-35.0) % Monocytes % (Manual) (1.0-6.0) % Myelocytes % % Nucleated RBC % % Platelet Evaluation (NORMAL) Polychromasia Anisocytosis (manual) PT (9.9-11.8) Seconds INR (0.93-1.08) APTT (23.7-30.8) Seconds pCO2 (35-45) mm/Hg pO2 (80-100) mm/Hg HCO3 (21-28) mmol/L ABG pH (7.35-7.45) ABG Total CO2 (22-28) mmol.L ABG O2 Saturation (95-98) % ABG O2 Content (15-23) ML/dl ABG Base Excess (-2.0-3.0) mmol/L ABG Hemoglobin (11.7-17.4) g/dL ABG Carboxyhemoglobin (0.5-1.5) % POC ABG HHb (Measured) (0-5) % ABG Methemoglobin (0.0-3.0) % ABG O2 Capacity (16-24) mL/dl Hgb O2 Saturation (95.0-98.0) % FiO2 % Sodium 147 (132-148) mmol/L Potassium 5.2 H (3.6-5.0) mmol/L Chloride 115 H (98-107) mmol/L Carbon Dioxide 25 (21-33) mmol/L Anion Gap 12 (10-20) BUN 49 H (7-21) mg/dL Creatinine 2.5 H (0.5-1.4) mg/dL Est GFR ( Amer) 22 Est GFR (Non-Af Amer) 19 Random Glucose 83 (70-110) mg/dL Calcium 8.0 L (8.4-10.5) mg/dL Phosphorus (2.5-4.5) mg/dL Magnesium 2.0 (1.7-2.2) mg/dL Ferritin ng/mL Total Bilirubin 0.8 (0.2-1.3) mg/dL Direct Bilirubin 0.8 H (0.0-0.4) mg/dL AST 75 H (15-39) U/L ALT 73 H (7-56) U/L Alkaline Phosphatase 120 (38-133) U/L Total Protein 6.9 (5.8-8.3) g/dL Albumin 2.9 L (3.0-4.8) g/dL Globulin 3.9 gm/dL Albumin/Globulin Ratio 0.7 L (1.1-1.8) Procalcitonin (0.19-0.49) NG/ML Hep Bs Antigen (NEGATIVE) Hep Bs Antibody Negative (NEGATIVE) Hep B Core IgM Ab (NEGATIVE) Hepatitis C Antibody (NEGATIVE) 11/19/16 11/19/16 11/19/16 Range/Units 23:40 23:33 09:30 WBC 14.3 H (4.5-11.0) 10^3/ul RBC 3.88 (3.5-6.1) 10^6/uL Hgb 12.4 (12.0-16.0) gm/dL Hct 40.5 (36.0-48.0) % MCV 104.4 (80.0-105.0) fL MCH 32.0 (25.0-35.0) pg MCHC 30.6 L (31.0-37.0) g/dl RDW 21.3 H (11.5-14.5) % Plt Count 358 (120.0-450.0) 10^3/uL MPV 10.3 (7.0-11.0) fl Gran % Acute Care Registered Nurse Lymph % (Auto) Acute Care Registered Nurse [place] % (Auto) Acute Care Registered Nurse Eos % (Auto) Acute Care Registered Nurse Baso % (Auto) Acute Care Registered Nurse Gran # Acute Care Registered Nurse Lymph # Acute Care Registered Nurse [place] # Acute Care Registered Nurse Eos # Acute Care Registered Nurse Baso # Acute Care Registered Nurse Neutrophils % (Manual) 70 (50.0-70.0) % Band Neutrophils % 6 H (0-2) % Lymphocytes % (Manual) 16 L (22.0-35.0) % Monocytes % (Manual) 6 (1.0-6.0) % Myelocytes % 2 % Nucleated RBC % 1 % Platelet Evaluation Normal (NORMAL) Polychromasia 1+ Anisocytosis (manual) 1+ PT (9.9-11.8) Seconds INR (0.93-1.08) APTT (23.7-30.8) Seconds pCO2 (35-45) mm/Hg pO2 (80-100) mm/Hg HCO3 (21-28) mmol/L ABG pH (7.35-7.45) ABG Total CO2 (22-28) mmol.L ABG O2 Saturation (95-98) % ABG O2 Content (15-23) ML/dl ABG Base Excess (-2.0-3.0) mmol/L ABG Hemoglobin (11.7-17.4) g/dL ABG Carboxyhemoglobin (0.5-1.5) % POC ABG HHb (Measured) (0-5) % ABG Methemoglobin (0.0-3.0) % ABG O2 Capacity (16-24) mL/dl Hgb O2 Saturation (95.0-98.0) % FiO2 % Sodium 148 (132-148) mmol/L Potassium 5.5 H (3.6-5.0) mmol/L Chloride 116 H (98-107) mmol/L Carbon Dioxide 23 (21-33) mmol/L Anion Gap 15 (10-20) BUN 60 H (7-21) mg/dL Creatinine 2.7 H (0.5-1.4) mg/dL Est GFR ( Amer) 21 Est GFR (Non-Af Amer) 17 Random Glucose 82 (70-110) mg/dL Calcium 8.3 L (8.4-10.5) mg/dL Phosphorus 7.3 H (2.5-4.5) mg/dL Magnesium 2.1 (1.7-2.2) mg/dL Ferritin 1680.0 ng/mL Total Bilirubin 0.8 (0.2-1.3) mg/dL Direct Bilirubin (0.0-0.4) mg/dL AST 75 H (15-39) U/L ALT 68 H (7-56) U/L Alkaline Phosphatase 109 (38-133) U/L Total Protein 7.0 (5.8-8.3) g/dL Albumin 2.9 L (3.0-4.8) g/dL Globulin 4.1 gm/dL Albumin/Globulin Ratio 0.7 L (1.1-1.8) Procalcitonin 2.48 H (0.19-0.49) NG/ML Hep Bs Antigen Negative (NEGATIVE) Hep Bs Antibody (NEGATIVE) Hep B Core IgM Ab Negative (NEGATIVE) Hepatitis C Antibody Negative (NEGATIVE) Laboratory Results - last 24 hr 11/19/16 11/19/16 11/19/16 09:30 23:33 23:40 WBC 14.3 H RBC 3.88 Hgb 12.4 Hct 40.5 MCV 104.4 MCH 32.0 MCHC 30.6 L RDW 21.3 H Plt Count 358 MPV 10.3 Gran % Acute Care Registered Nurse Lymph % (Auto) Acute Care Registered Nurse [place] % (Auto) Acute Care Registered Nurse Eos % (Auto) Acute Care Registered Nurse Baso % (Auto) Acute Care Registered Nurse Gran # Acute Care Registered Nurse Lymph # Acute Care Registered Nurse [place] # Acute Care Registered Nurse Eos # Acute Care Registered Nurse Baso # Acute Care Registered Nurse Neutrophils % (Manual) 70 Band Neutrophils % 6 H Lymphocytes % (Manual) 16 L Monocytes % (Manual) 6 Myelocytes % 2 Nucleated RBC % 1 Platelet Evaluation Normal Polychromasia 1+ Anisocytosis (manual) 1+ PT INR APTT pCO2 pO2 HCO3 ABG pH ABG Total CO2 ABG O2 Saturation ABG O2 Content ABG Base Excess ABG Hemoglobin ABG Carboxyhemoglobin POC ABG HHb (Measured) ABG Methemoglobin ABG O2 Capacity Hgb O2 Saturation FiO2 Sodium 148 Potassium 5.5 H Chloride 116 H Carbon Dioxide 23 Anion Gap 15 BUN 60 H Creatinine 2.7 H Est GFR ( Amer) 21 Est GFR (Non-Af Amer) 17 Random Glucose 82 Calcium 8.3 L Phosphorus 7.3 H Magnesium 2.1 Ferritin 1680.0 Total Bilirubin 0.8 Direct Bilirubin AST 75 H ALT 68 H Alkaline Phosphatase 109 Total Protein 7.0 Albumin 2.9 L Globulin 4.1 Albumin/Globulin Ratio 0.7 L Procalcitonin 2.48 H Hep Bs Antigen Negative Hep Bs Antibody Hep B Core IgM Ab Negative Hepatitis C Antibody Negative 11/19/16 11/20/16 11/20/16 23:40 06:00 06:00 WBC 15.4 H RBC 3.83 Hgb 12.0 Hct 40.3 MCV 105.2 H MCH 31.3 MCHC 29.8 L RDW 21.3 H Plt Count 238 MPV 10.1 Gran % 81.6 H Lymph % (Auto) 10.8 L [place] % (Auto) 7.5 H Eos % (Auto) 0.0 L Baso % (Auto) 0.1 Gran # 12.54 H Lymph # 1.7 [place] # 1.2 H Eos # 0.0 Baso # 0.01 Neutrophils % (Manual) Band Neutrophils % Lymphocytes % (Manual) Monocytes % (Manual) Myelocytes % Nucleated RBC % Platelet Evaluation Polychromasia Anisocytosis (manual) PT INR APTT pCO2 pO2 HCO3 ABG pH ABG Total CO2 ABG O2 Saturation ABG O2 Content ABG Base Excess ABG Hemoglobin ABG Carboxyhemoglobin POC ABG HHb (Measured) ABG Methemoglobin ABG O2 Capacity Hgb O2 Saturation FiO2 Sodium 147 Potassium 5.2 H Chloride 115 H Carbon Dioxide 25 Anion Gap 12 BUN 49 H Creatinine 2.5 H Est GFR ( Amer) 22 Est GFR (Non-Af Amer) 19 Random Glucose 83 Calcium 8.0 L Phosphorus Magnesium 2.0 Ferritin Total Bilirubin 0.8 Direct Bilirubin 0.8 H AST 75 H ALT 73 H Alkaline Phosphatase 120 Total Protein 6.9 Albumin 2.9 L Globulin 3.9 Albumin/Globulin Ratio 0.7 L Procalcitonin Hep Bs Antigen Hep Bs Antibody Negative Hep B Core IgM Ab Hepatitis C Antibody 11/20/16 11/20/16 11/20/16 06:00 06:00 07:34 WBC RBC Hgb Hct MCV MCH MCHC RDW Plt Count MPV Gran % Lymph % (Auto) [place] % (Auto) Eos % (Auto) Baso % (Auto) Gran # Lymph # [place] # Eos # Baso # Neutrophils % (Manual) Band Neutrophils % Lymphocytes % (Manual) Monocytes % (Manual) Myelocytes % Nucleated RBC % Platelet Evaluation Polychromasia Anisocytosis (manual) PT 13.3 H INR 1.23 H APTT 29.6 pCO2 34 L 70 H pO2 33.0 L* 329.0 H HCO3 7.3 L* 21.2 ABG pH 6.94 L* 7.09 L* ABG Total CO2 8.3 L 23.3 ABG O2 Saturation 64.1 L 97.7 ABG O2 Content 4.3 L 17.0 ABG Base Excess -22.6 L -9.4 L ABG Hemoglobin 4.8 L 11.9 ABG Carboxyhemoglobin 0.6 0.4 L POC ABG HHb (Measured) 35.6 H 2.3 ABG Methemoglobin 0.1 0.9 ABG O2 Capacity 6.7 L 17.4 Hgb O2 Saturation 63.6 L 96.3 FiO2 100.0 100.0 Sodium Potassium Chloride Carbon Dioxide Anion Gap BUN Creatinine Est GFR ( Amer) Est GFR (Non-Af Amer) Random Glucose Calcium Phosphorus Magnesium Ferritin Total Bilirubin Direct Bilirubin AST ALT Alkaline Phosphatase Total Protein Albumin Globulin Albumin/Globulin Ratio Procalcitonin Hep Bs Antigen Hep Bs Antibody Hep B Core IgM Ab Hepatitis C Antibody EKG/Cardiology Studies: Cardiology / EKG Studies 11/20/16 07:00 EKG [ELECTROCARDIOGRAM] DAILY Comment: Reason For Exam: AFIB PAUSES Critical Care Progress Note - Nutrition Nutrition: Nutrition Category Date Time Status Liquid Diet [DIET] Diets 11/19/16 Dinner Ordered Attending/Attestation - Attestation I have personally seen and examined this patient.: Yes I have fully participated in the care of the patient.: Yes I have reviewed all pertinent clinical information: Yes Notes (Text): 11/20/16 16:45 81 y/o F /w Multiple medical problems Multiple medical Metabolic problems and recently started on HD. Brought to the ICU due to increased respiratory distress on BIPAP early this a.m family decided to stop all measures and make the patient DNR/DNI and plan for comfort care. cc time 55 min
--- NOTE | 2016-11-20 15:37 | CP.PCM.CON ---
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 She underwent surgery and now has a colostomy. She was then transferred to TCU for deconditioning. Her renal functions worsened and she was readmitted to the acute care setting for dialysis. She was dialyzed once. She has also developed atrial fibrillation and pneumothorax. Her condition has progressively worsened. PMHx: breast cancer, left mastectomy, Parkinson's disease, MARCIANO, HTN. Social History: Non smoker, no alcohol or drug use. , lives with spouse. Family History: Non contributory. Advance Care Planning: she does not have an Advanced Directive. She is DNR/DNI. Past Patient History - Infectious Disease Hx of Infectious Diseases: None - Past Medical History & Family History Past Medical History?: Yes - Past Social History Smoking Status: Never Smoked - CARDIAC Hx Cardiac Disorders: Yes Hx Congestive Heart Failure: Yes Hx Hypertension: Yes - PULMONARY Hx Respiratory Disorders: No Hx Chronic Obstructive Pulmonary Disease (COPD): No - NEUROLOGICAL Hx Neurological Disorder: Yes HX Cerebrovascular Accident: No Hx Parkinson's Disease: Yes - HEENT Hx HEENT Problems: No - RENAL Hx Chronic Kidney Disease: Yes (URINARY RETENTION) Hx Renal Failure: No - ENDOCRINE/METABOLIC Hx Endocrine Disorders: No Hx Diabetes Mellitus Type 1: No Hx Diabetes Mellitus Type 2: No Hx Hypothyroidism: No - HEMATOLOGICAL/ONCOLOGICAL Hx Blood Transfusions: Yes Hx Blood Transfusion Reaction: No - INTEGUMENTARY Hx Dermatological Problems: Yes Other/Comment: MULTIPLE PUSTULES AND BROWN PLAQUES TO FACE AND BACK. - MUSCULOSKELETAL/RHEUMATOLOGICAL Hx Arthritis: No Hx Falls: Yes - GASTROINTESTINAL Hx Gastrointestinal Disorders: Yes (COLOVESICAL FISTULA) Hx Gastroesophageal Reflux: No - GENITOURINARY/GYNECOLOGICAL Hx Genitourinary Disorders: Yes (BREAST CA -LEFT MASTECTOMY.) Other/Comment: VESICOVAGINAL FISTULA,RECTOVAGINAL FISTULA,HYSTERECTOMY - PSYCHIATRIC Hx Psychophysiologic Disorder: Yes Hx Anxiety: Yes Hx Substance Use: No - SURGICAL HISTORY Hx Surgeries: Yes - ANESTHESIA Hx Anesthesia Reactions: No Hx Malignant Hyperthermia: No Meds Allergies/Adverse Reactions: Allergies Allergy/AdvReac Type Severity Reaction Status Date / Time No Known Allergies Allergy Verified 11/12/16 21:15 - Medications Medications: Current Medications Atenolol (Tenormin) 12.5 mg PO BID [facility] Last Admin: 11/20/16 10:15 Dose: Not Given Cholecalciferol (Vitamin D) 2,000 iu PO DAILY [facility] Last Admin: 11/20/16 10:16 Dose: Not Given Clonazepam (Klonopin) 4 mg PO HS [facility] PRN Reason: Protocol Last Admin: 11/18/16 22:21 Dose: Not Given Furosemide (Lasix) 20 mg IVP Q12H [facility] Last Admin: 11/20/16 10:20 Dose: 20 mg Home Med (Home Med) 1 unit PO DAILY [facility] Last Admin: 11/20/16 10:15 Dose: Not Given Dextrose (Dextrose 5% In Water 1000 Ml) 1,000 mls @ 50 mls/hr IV .Q20H [facility] Last Admin: 11/18/16 10:21 Dose: 50 mls/hr Meropenem 1g/NS 100mL IVPB (Meropenem 1g/Ns 100ml Ivpb) 1 gm in 100 mls @ 100 mls/hr IVPB Q12 [facility] PRN Reason: Protocol Stop: 11/26/16 22:01 Last Admin: 11/20/16 10:30 Dose: 100 mls/hr Doxycycline Hyclate 100 mg/ (Sodium Chloride) 100 mls @ 100 mls/hr IVPB Q12 [facility] PRN Reason: Protocol Last Admin: 11/20/16 10:21 Dose: 100 mls/hr Levalbuterol HCl (Xopenex) 0.63 mg IH [id number] [facility] Last Admin: 11/20/16 13:28 Dose: 0.63 mg Lorazepam (Ativan) 0.5 mg PO BID [facility] PRN Reason: Protocol Last Admin: 11/19/16 17:32 Dose: Not Given Pantoprazole Sodium (Protonix Inj) 40 mg IVP DAILY [facility] Last Admin: 11/20/16 10:22 Dose: 40 mg Rivastigmine (Exelon Cap) 4.5 mg PO 0800,1800 [facility] Last Admin: 11/20/16 08:50 Dose: Not Given Ropinirole HCl (Requip) 8 mg PO 0800 [facility] Last Admin: 11/20/16 08:52 Dose: Not Given Verapamil HCl (Verapamil Inj) 2.5 mg IVP Q6H PRN PRN Reason: for Heart rate >130 Physical Exam - Constitutional Appears: Chronically Ill - Head Exam Head Exam: NORMAL INSPECTION - Eye Exam Eye Exam: Normal appearance, PERRL - ENT Exam ENT Exam: Mucous Membranes Moist, Normal Oropharynx - Neck Exam Neck exam: Positive for: Normal Inspection - Respiratory Exam Respiratory Exam: Decreased Breath Sounds, NORMAL BREATHING PATTERN Additional comments: right chest pigtail catheter insitu - Cardiovascular Exam Cardiovascular Exam: Irregular Rhythm, +S1, +S2 - GI/Abdominal Exam GI & Abdominal Exam: Normal Bowel Sounds, Soft Additional comments: RLQ colostomy stoma pink, patent - Exam Additional comments: oliguria - Back Exam Back exam: NORMAL INSPECTION - Neurological Exam Neurological exam: Altered - Skin Skin Exam: Dry, Pallor - Additional Findings Additional findings: Palliative performance scale rating 20 % Results - Vital Signs Recent Vital Signs: Last Vital Signs Temp 97.3 F L 11/20/16 08:00 Pulse 84 11/20/16 14:00 Resp 28 H 11/20/16 12:00 BP 122/45 L 11/20/16 12:00 Pulse Ox 99 11/20/16 12:00 - Labs Result Diagrams: 11/20/16 06:00 11/20/16 06:00 Labs: Laboratory Results - last 24 hr 11/19/16 11/19/16 11/19/16 09:30 23:33 23:40 WBC 14.3 H RBC 3.88 Hgb 12.4 Hct 40.5 MCV 104.4 MCH 32.0 MCHC 30.6 L RDW 21.3 H Plt Count 358 MPV 10.3 Gran % Vegetable Tester Lymph % (Auto) Vegetable Tester [place] % (Auto) Vegetable Tester Eos % (Auto) Vegetable Tester Baso % (Auto) Vegetable Tester Gran # Vegetable Tester Lymph # Vegetable Tester [place] # Vegetable Tester Eos # Vegetable Tester Baso # Vegetable Tester Neutrophils % (Manual) 70 Band Neutrophils % 6 H Lymphocytes % (Manual) 16 L Monocytes % (Manual) 6 Myelocytes % 2 Nucleated RBC % 1 Platelet Evaluation Normal Polychromasia 1+ Anisocytosis (manual) 1+ PT INR APTT pCO2 pO2 HCO3 ABG pH ABG Total CO2 ABG O2 Saturation ABG O2 Content ABG Base Excess ABG Hemoglobin ABG Carboxyhemoglobin POC ABG HHb (Measured) ABG Methemoglobin ABG O2 Capacity Hgb O2 Saturation FiO2 Sodium 148 Potassium 5.5 H Chloride 116 H Carbon Dioxide 23 Anion Gap 15 BUN 60 H Creatinine 2.7 H Est GFR ( Amer) 21 Est GFR (Non-Af Amer) 17 Random Glucose 82 Calcium 8.3 L Phosphorus 7.3 H Magnesium 2.1 Ferritin 1680.0 Total Bilirubin 0.8 Direct Bilirubin AST 75 H ALT 68 H Alkaline Phosphatase 109 Total Protein 7.0 Albumin 2.9 L Globulin 4.1 Albumin/Globulin Ratio 0.7 L Procalcitonin 2.48 H Hep Bs Antigen Negative Hep Bs Antibody Hep B Core IgM Ab Negative Hepatitis C Antibody Negative 11/19/16 11/20/16 11/20/16 23:40 06:00 06:00 WBC 15.4 H RBC 3.83 Hgb 12.0 Hct 40.3 MCV 105.2 H MCH 31.3 MCHC 29.8 L RDW 21.3 H Plt Count 238 MPV 10.1 Gran % 81.6 H Lymph % (Auto) 10.8 L [place] % (Auto) 7.5 H Eos % (Auto) 0.0 L Baso % (Auto) 0.1 Gran # 12.54 H Lymph # 1.7 [place] # 1.2 H Eos # 0.0 Baso # 0.01 Neutrophils % (Manual) Band Neutrophils % Lymphocytes % (Manual) Monocytes % (Manual) Myelocytes % Nucleated RBC % Platelet Evaluation Polychromasia Anisocytosis (manual) PT INR APTT pCO2 pO2 HCO3 ABG pH ABG Total CO2 ABG O2 Saturation ABG O2 Content ABG Base Excess ABG Hemoglobin ABG Carboxyhemoglobin POC ABG HHb (Measured) ABG Methemoglobin ABG O2 Capacity Hgb O2 Saturation FiO2 Sodium 147 Potassium 5.2 H Chloride 115 H Carbon Dioxide 25 Anion Gap 12 BUN 49 H Creatinine 2.5 H Est GFR ( Amer) 22 Est GFR (Non-Af Amer) 19 Random Glucose 83 Calcium 8.0 L Phosphorus Magnesium 2.0 Ferritin Total Bilirubin 0.8 Direct Bilirubin 0.8 H AST 75 H ALT 73 H Alkaline Phosphatase 120 Total Protein 6.9 Albumin 2.9 L Globulin 3.9 Albumin/Globulin Ratio 0.7 L Procalcitonin Hep Bs Antigen Hep Bs Antibody Negative Hep B Core IgM Ab Hepatitis C Antibody 11/20/16 11/20/16 11/20/16 06:00 06:00 07:34 WBC RBC Hgb Hct MCV MCH MCHC RDW Plt Count MPV Gran % Lymph % (Auto) [place] % (Auto) Eos % (Auto) Baso % (Auto) Gran # Lymph # [place] # Eos # Baso # Neutrophils % (Manual) Band Neutrophils % Lymphocytes % (Manual) Monocytes % (Manual) Myelocytes % Nucleated RBC % Platelet Evaluation Polychromasia Anisocytosis (manual) PT 13.3 H INR 1.23 H APTT 29.6 pCO2 34 L 70 H pO2 33.0 L* 329.0 H HCO3 7.3 L* 21.2 ABG pH 6.94 L* 7.09 L* ABG Total CO2 8.3 L 23.3 ABG O2 Saturation 64.1 L 97.7 ABG O2 Content 4.3 L 17.0 ABG Base Excess -22.6 L -9.4 L ABG Hemoglobin 4.8 L 11.9 ABG Carboxyhemoglobin 0.6 0.4 L POC ABG HHb (Measured) 35.6 H 2.3 ABG Methemoglobin 0.1 0.9 ABG O2 Capacity 6.7 L 17.4 Hgb O2 Saturation 63.6 L 96.3 FiO2 100.0 100.0 Sodium Potassium Chloride Carbon Dioxide Anion Gap BUN Creatinine Est GFR ( Amer) Est GFR (Non-Af Amer) Random Glucose Calcium Phosphorus Magnesium Ferritin Total Bilirubin Direct Bilirubin AST ALT Alkaline Phosphatase Total Protein Albumin Globulin Albumin/Globulin Ratio Procalcitonin Hep Bs Antigen Hep Bs Antibody Hep B Core IgM Ab Hepatitis C Antibody Assessment & Plan - Assessment and Plan (Free Text) Assessment: 81 year old female admitted with MARCIANO, respiratory insufficiency, metabolic acidosis, atrial fibrillation, s/p rectal vaginal fistulas,colostomy. Patient is extremely lethargic, non conversive. She is in no acute distress. Patient and son at bedside. Family has discussed patient 's medical condition with attending physician and consultants. Family aware that patient prognosis is poor and that she is nearing end of life. Family interested in taking patient home with comfort care. Hospice services explained in detail. Questions answered. Family requesting to meet with journalism instructor today in the hope of transitioning patient home tomorrow with hospice services.Psychosocial support given Time spent in discussion with family regarding goals of care, end of life planning, 40 minutes Plan: Plan discussed with Dr Robb Vargas, who is agreeable. Hospice evaluation. Likely to discharge home tomorrow with hospice services. Will be followed by Dr Kasper once discharged.
--- NOTE | 2016-11-20 20:02 | CP.PCM.PN ---
Subjective - Date & Time of Evaluation Date of Evaluation: 11/20/16 Time of Evaluation: 09:00 - Subjective Subjective: SURGERY PROGRESS NOTE FOR DR. BRUCE 81F seen and examined at bedside. Patient resting comfortably on ventilation. pleura cath in place. Was placed on suction at this morning with 300cc of serous fluid out in 1 hour. Objective - Vital Signs/Intake and Output Vital Signs (last 24 hours): Temp Pulse Resp BP Pulse Ox 97.3 F L 84 25 H 113/49 L 100 11/20/16 08:00 11/20/16 18:00 11/20/16 16:40 11/20/16 17:59 11/20/16 17:50 Intake and Output: 11/20/16 11/21/16 18:59 06:59 Intake Total 200 Output Total 480 Balance -280 - Medications Medications: Current Medications Atenolol (Tenormin) 12.5 mg PO BID [facility] Last Admin: 11/20/16 17:59 Dose: Not Given Cholecalciferol (Vitamin D) 2,000 iu PO DAILY [facility] Last Admin: 11/20/16 10:16 Dose: Not Given Clonazepam (Klonopin) 4 mg PO HS [facility] PRN Reason: Protocol Last Admin: 11/18/16 22:21 Dose: Not Given Furosemide (Lasix) 20 mg IVP Q12H [facility] Last Admin: 11/20/16 10:20 Dose: 20 mg Home Med (Home Med) 1 unit PO DAILY [facility] Last Admin: 11/20/16 10:15 Dose: Not Given Dextrose (Dextrose 5% In Water 1000 Ml) 1,000 mls @ 50 mls/hr IV .Q20H [facility] Last Admin: 11/18/16 10:21 Dose: 50 mls/hr Meropenem 1g/NS 100mL IVPB (Meropenem 1g/Ns 100ml Ivpb) 1 gm in 100 mls @ 100 mls/hr IVPB Q12 [facility] PRN Reason: Protocol Stop: 11/26/16 22:01 Last Admin: 11/20/16 10:30 Dose: 100 mls/hr Doxycycline Hyclate 100 mg/ (Sodium Chloride) 100 mls @ 100 mls/hr IVPB Q12 [facility] PRN Reason: Protocol Last Admin: 11/20/16 10:21 Dose: 100 mls/hr Levalbuterol HCl (Xopenex) 0.63 mg IH [id number] [facility] Last Admin: 11/20/16 13:28 Dose: 0.63 mg Lorazepam (Ativan) 0.5 mg PO BID [facility] PRN Reason: Protocol Last Admin: 11/19/16 17:32 Dose: Not Given Pantoprazole Sodium (Protonix Inj) 40 mg IVP DAILY [facility] Last Admin: 11/20/16 10:22 Dose: 40 mg Rivastigmine (Exelon Cap) 4.5 mg PO 0800,1800 [facility] Last Admin: 11/20/16 17:59 Dose: Not Given Ropinirole HCl (Requip) 8 mg PO 0800 [facility] Last Admin: 11/20/16 08:52 Dose: Not Given Verapamil HCl (Verapamil Inj) 2.5 mg IVP Q6H PRN PRN Reason: for Heart rate >130 - Labs Labs: 11/20/16 06:00 11/20/16 06:00 PT 13.3 Seconds (9.9-11.8) H 11/20/16 06:00 INR 1.23 (0.93-1.08) H 11/20/16 06:00 APTT 29.6 Seconds (23.7-30.8) 11/20/16 06:00 - Head Exam Head Exam: ATRAUMATIC - Respiratory Exam Respiratory Exam: Clear to Ausculation Bilateral Additional comments: chest tube in place, on suction, on ventilation - Cardiovascular Exam Cardiovascular Exam: REGULAR RHYTHM, +S1, +S2 - GI/Abdominal Exam GI & Abdominal Exam: Soft. absent: Distended, Firm, Guarding, Rigid, Tenderness , Rebound - Neurological Exam Neurological Exam: Alert, Awake Assessment and Plan - Assessment and Plan (Free Text) Assessment: 81yo F with Rectal vesiculo fistula, Rectal vaginal fistula. s/p diverting loop colostomy on 11/14. s/p pleuracath placement. Currently with MARCIANO - serial CXRs - pleuracath monitoring - recommeneding hospice Further recs discuss with Dr. Juni Wilder, PGY1
[2016-11-20] MEDS ORDERED: Sod Polystyrene Sulf 15 gm/60 ml Oral Susp PR ONE (20:13)
[2016-11-21] MEDS: Levalbuterol 0.63 MG/3 ML Inhal Soln UD IH SCH ×4 (01:28→19:45)
[2016-11-21 07:00] LABS: ADD MANUAL DIFF? NO
[2016-11-21 07:15] LABS: INR 1.13 (0.93-1.08); PARTIAL THROMBOPLASTIN TIME 29.5 Seconds (23.7-30.8)
[2016-11-21 07:16] LABS: EOS % 0.2 % (1.5-5.0); GRAN % 79.1 % (50.0-68.0); HEMATOCRIT 38.4 % (36.0-48.0); LYMPH # 1.4 (1.2-3.4); LYMPH % 12.3 % (22.0-35.0); MEAN CELL VOLUME 102.9 fL (80.0-105.0); MEAN CORPUSCULAR HEMOGLOBIN 31.4 pg (25.0-35.0); MEAN CORPUSCULAR HGB CONC 30.5 g/dl (31.0-37.0); MEAN PLATELET VOLUME 10.5 fl (7.0-11.0); MONO # 0.9 (0.1-0.6); MONO % 8.4 % (1.0-6.0); PLATELET COUNT 204 10^3/uL (120.0-450.0); WHITE BLOOD COUNT 11.2 10^3/ul (4.5-11.0)
[2016-11-21 07:22] LABS: ALB/GLOB RATIO 0.8 (1.1-1.8); BILIRUBIN,DIRECT 0.8 mg/dL (0.0-0.4); BILIRUBIN,TOTAL 0.8 mg/dL (0.2-1.3); CALCIUM 8.2 mg/dL (8.4-10.5); MAGNESIUM 2.1 mg/dL (1.7-2.2); TOTAL PROTEIN 6.5 g/dL (5.8-8.3)
[2016-11-21 07:36] LABS: POTASSIUM 4.3 mmol/L (3.6-5.0)
--- NOTE | 2016-11-21 08:16 | PN ---
DATE: 11/20/2016 An 81-year-old female with past medical history of hypertension, CHF, CKD, rectovesical/rectovaginal fistulas initially admitted with UTI, sepsis secondary to rectovesical fistula, now status post LOOP colostomy procedure done 6 days ago. Nephrology following the patient for acute renal failure. PLAN: The patient was seen this morning, seeming to indicate she did not want to be on BiPAP. Other umaña, very lethargic. Underwent dialysis late last night for her first time. OBJECTIVE: VITAL SIGNS: Blood pressure 116/58, heart rate 84, respirations 25, O2 sat 100% on nasal cannula oxy gen. GENERAL: No distress, able to communicate, although very lethargic. HEENT: Moist mucous membranes, nonicteric. CHEST: Clear to auscultation bilaterally. No wheezes, no rhonchi, no rales, but diminished breath s ounds at bases. HEART: Soft systolic murmur, otherwise regular rate and rhythm. ABDOMEN: Soft, nontender, nondistended. EXTREMITIES: Moderately edematous legs. Right femoral hemodialysis catheter in place. Bluish disco loration of tips of fingers. LABORATORY DATA: This morning: CBC: WBC 15.4, hemoglobin 12.0, hematocrit 40.3, platelets 238. Ch emistry panel: Sodium 147, potassium 5.2, chloride 115, bicarbonate 25, BUN 49, creatinine 2.5, calc ium 8.0, albumin 2.9. Blood gases: ABG: pH 7.09, pCO2 of 70, pO2 329, 21.2 on 100% FIO2 via BiPAP. ASSESSMENT: 1. Acute renal failure on chronic kidney disease. Urine is consistent with acute tubular necr osis in the setting of hypotensive event 3 days ago. Oliguric renal failure with mild hyperkalemia a nd increased anion gap metabolic acidosis, status post first hemodialysis session last night; subopti mal hemodialysis treatment likely due to filter clotting, although were able to complete the session with stopping it. The patient's family now opting for hospice care and wanting to take her home germán rrow; no urgent indication for hemodialysis at this point; can treat hyperkalemia with Kayexalate. O therwise, metabolic acidosis has been corrected temporarily with hemodialysis. 2. Hypercapnic respiratory failure in the setting of congestive heart failure, unlikely pneumonia. The patient is still with severe respiratory acidosis on ABG [facility] At this point, BiPAP being stopped and patient on just nasal cannula oxygen. Dialysis is offse tting overall, acidosis; however, I agree that if the patient remains DNI and cannot ventilate adequa tely and reduce pCO2, hemodialysis would be futile. 3. Sepsis. Urine growing vancomycin-resistant enterococcus. Procalcitonin level elevated. Possibl e aspiration pneumonia as well. Received dose of daptomycin after dialysis last night. Also on lizzy penem and doxycycline. No renal dose adjustment needed for doxycycline. Meropenem should likely be redosed at q.24 hours for advanced renal failure. 4. Congestive heart failure. Chest x-ray findings show improvement. Tolerated 1 liter of UF on hemodialysis overnight, as the patient does seem to have urine output today, although still oligur ic. Can continue with Lasix increased to 40 mg IV push q.12 hours. 5. Hypernatremia, approximately 1 liter free water deficit. The patient can be encouraged to drinki ng p.o. water. 6. Rectovesical fistula status post diverting colostomy; however, may still be having some residual stool that is seeping into bladder and possibly causing obstruction. Otherwise, cannot explain retur n of urine output overnight, albeit still oliguric. Nursing staff being asked to restart continuous bladder irrigation for comfort measures in order to avoid any bladder distention and possibly to help some offsets of acute renal failure. Wally Ash MD cc: [id number] TT: 11/20/2016 20:51:02 Confirmation # [id number] Dictation # [id number] satya
--- NOTE | 2016-11-21 09:09 | CP.PCM.PN ---
Subjective - Date & Time of Evaluation Date of Evaluation: 11/21/16 Time of Evaluation: 09:00 - Subjective Subjective: Awake, alert, communicative. Offers no complaints Objective - Vital Signs/Intake and Output Vital Signs (last 24 hours): Temp Pulse Resp BP Pulse Ox 97.4 F L 125 H 20 103/64 100 11/21/16 08:00 11/21/16 08:00 11/21/16 08:00 11/21/16 08:00 11/21/16 08:00 Intake and Output: 11/21/16 11/21/16 06:59 18:59 Intake Total 400 Output Total 1600 Balance -1200 - Medications Medications: Current Medications Atenolol (Tenormin) 12.5 mg PO BID [facility] Last Admin: 11/20/16 17:59 Dose: Not Given Cholecalciferol (Vitamin D) 2,000 iu PO DAILY [facility] Last Admin: 11/20/16 10:16 Dose: Not Given Clonazepam (Klonopin) 4 mg PO HS [facility] PRN Reason: Protocol Last Admin: 11/18/16 22:21 Dose: Not Given Furosemide (Lasix) 20 mg IVP Q12H [facility] Last Admin: 11/20/16 22:06 Dose: Not Given Home Med (Home Med) 1 unit PO DAILY [facility] Dextrose (Dextrose 5% In Water 1000 Ml) 1,000 mls @ 50 mls/hr IV .Q20H [facility] Last Admin: 11/18/16 10:21 Dose: 50 mls/hr Meropenem 1g/NS 100mL IVPB (Meropenem 1g/Ns 100ml Ivpb) 1 gm in 100 mls @ 100 mls/hr IVPB Q12 [facility] PRN Reason: Protocol Stop: 11/26/16 22:01 Last Admin: 11/20/16 22:02 Dose: 100 mls/hr Doxycycline Hyclate 100 mg/ (Sodium Chloride) 100 mls @ 100 mls/hr IVPB Q12 [facility] PRN Reason: Protocol Last Admin: 11/21/16 01:05 Dose: 100 mls/hr Levalbuterol HCl (Xopenex) 0.63 mg IH [id number] [facility] Last Admin: 11/21/16 07:46 Dose: 0.63 mg Lorazepam (Ativan) 0.5 mg PO BID [facility] PRN Reason: Protocol Last Admin: 11/19/16 17:32 Dose: Not Given Pantoprazole Sodium (Protonix Inj) 40 mg IVP DAILY [facility] Last Admin: 11/20/16 10:22 Dose: 40 mg Rivastigmine (Exelon Cap) 4.5 mg PO 0800,1800 [facility] Last Admin: 11/21/16 08:39 Dose: 4.5 mg Ropinirole HCl (Requip) 8 mg PO 0800 [facility] Last Admin: 11/21/16 09:04 Dose: 8 mg Verapamil HCl (Verapamil Inj) 2.5 mg IVP Q6H PRN PRN Reason: for Heart rate >130 - Labs Labs: 11/21/16 06:30 11/21/16 06:30 PT 12.2 Seconds (9.9-11.8) H 11/21/16 06:30 INR 1.13 (0.93-1.08) H 11/21/16 06:30 APTT 29.5 Seconds (23.7-30.8) 11/21/16 06:30 - Constitutional Appears: No Acute Distress, Chronically Ill - Head Exam Head Exam: NORMAL INSPECTION - Eye Exam Eye Exam: Normal appearance, PERRL - ENT Exam ENT Exam: Mucous Membranes Moist, Normal Oropharynx - Neck Exam Neck Exam: Normal Inspection - Respiratory Exam Respiratory Exam: Decreased Breath Sounds, NORMAL BREATHING PATTERN - Cardiovascular Exam Cardiovascular Exam: REGULAR RHYTHM, +S1, +S2 - GI/Abdominal Exam GI & Abdominal Exam: Soft, Normal Bowel Sounds - Exam Additional comments: oliguria - Neurological Exam Neurological Exam: Alert, Oriented x3 - Skin Skin Exam: Dry, Pallor Assessment and Plan - Assessment and Plan (Free Text) Assessment: 81 year old female admitted with MARCIANO, rectal vaginal fistula s/p lop colostomy, respiratory insufficiency. History of Parkinson's disease, CKD sick sinus syndrome, s/p pacemaker. Family an I had extensive discussion with media liaison officer yesterday. All services explained in detail. Questions answered. Family agreed to move forward with hospice care at home. Family signed consents/paperwork for hospice services with the intent of bringing patient home to today. I met with family again this morning. They have decided to put hospice care on hold.They are encouraged by the patient's alertness, increased appetite and urine output. They want to speak with county director regarding the possibility of additional dialysis. I assured them that they can revisit hospice care at anytime. Purpose of POLST explained to patient and son. [facility] DNR/DNI completed , a copy is on the chart. Hospice services on hold. Dr Vargas are of family's decision Plan: Hospice services on hold. POLST: DNR/DNI
--- NOTE | 2016-11-21 09:16 | CP.PCM.PCO ---
Physician Communication Note - Physician Communication Note Physician Communication Note: Family planning Home Hospice
[2016-11-21] MEDS: Meropenem 1g/NS 100mL IVPB 1 GM/100 ML PIGGYBACK IVPB SCH ×2 (09:51→22:09)
[2016-11-21] MEDS: SELENIUM 200 MCG PO SCH (09:51)
--- NOTE | 2016-11-21 10:05 | RAD ---
HISTORY: comparison COMPARISON: 11/20/2016 FINDINGS: LUNGS: No active pulmonary disease. PLEURA: Small to moderate bilateral effusions unchanged. CARDIOVASCULAR: Mild cardiomegaly OSSEOUS STRUCTURES: No significant abnormalities. VISUALIZED UPPER ABDOMEN: Normal. OTHER FINDINGS: Single lead pacemaker IMPRESSION: Bilateral pleural effusions
--- NOTE | 2016-11-21 10:57 | CP.PCM.PCO ---
Physician Communication Note - Physician Communication Note Physician Communication Note: No surprise--Family changed their minds!
--- NOTE | 2016-11-21 11:54 | PN ---
DATE: 11/21/2016 The patient is in room 568, bed 1. REASON FOR CONSULTATION AND FOLLOWUP: Asystole, multiple episodes of tachybrady syndrome, rapid atri al fibrillation, sinus pauses. 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 A VVI pacemaker was inserted. The franklyn ent then developed renal failure and patient got dialysis. The patient now denies any chest pain, sh ortness of breath, palpitation. The patient's 15% pneumothorax postpacemaker has cleared up. PHYSICAL EXAMINATION: VITAL SIGNS: Blood pressure 103/64, respirations 20, pulse 120, temperature 97.4. HEAD: Normocephalic. EYES: Pupils normal. Conjunctivae are normal. NECK: JVP low. Carotid equal. THORAX: AP diameter normal. LUNGS: Clear. CARDIOVASCULAR: S1, S2. ABDOMEN: The patient has a colostomy. EXTREMITIES: No clubbing, no cyanosis. LABORATORY DATA: WBC 11.2, hemoglobin 11.7, hematocrit 38.4, platelet 204. Sodium 149, potassium 4. 3, BUN 62, creatinine 2.6. AST 50, ALT 57, calcium 8.2, but albumin is also low at 2.8, total protei n 6.5. 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 PLAN: The patient's heart rate is around 120 on examination at present, so will add Cardizem 30 t.i. d. to present therapy, ____ atenolol 12.5 b.i.d. The patient is getting IV fluid 5% dextrose 50 mL a n hour, doxycycline hyclate 100 mg IV q. 12 hours, furosemide 20 mg IV q. 12 hours, Protonix 40 IV da teodoro. The patient is being followed by nephrology. Will follow with you. Bishop Peoples MD cc: [id number] TT: 11/21/2016 11:39:57 Confirmation # [id number] Dictation # [id number] ca 11/21/2016 10:53:57
--- NOTE | 2016-11-21 12:17 | PN ---
DATE: 11/21/2016 The patient was transferred out of the ICU to 568, bed 1, last night. The patient is now moved to 568, bed 1. The patient was seen and the patient's family met with the palliative care nurse, Laina Rogel, yesterday. The patient's son and agreed for home hospice and the patient was all set up for discharge to home hospice today when today morning I was informed by the patient's nurse, Antonio, and the nurse practitioner, Alexandra FELIZ, that the patient's and the son wants to rescind the home hospice. Want to continue with the hemodialysis. The patient is in room 568, bed 1. Overnight nurse's notes were reviewed. The patient was found to be increasingly alert, improving and increasing urine output with increasing appetite according to the nurses' note. VITAL SIGNS: From today T-max is 97.4; heart rate is 65, 60, 84 to 125; blood pressure 103/64, 108/43, 113/49, 140/43 116/58. Respirations 20, O2 sat 100%. INTAKE AND OUTPUT: 400, output 1300. Yesterday's intake 300, output 1830. The patient is seen lying in room 568, bed 1. The patient is 568, bed 1. THE PATIENT'S DIAGNOSTIC 11/21: WBC count is down to 11.2 from 16.3, hemoglobin and hematocrit 11.7 and 38.4, platelets 204. Differential 79%. PT, PTT 12.2, 29.5. Sodium 149, potassium down to 4.3, chloride 115, CO2 of 24, anion gap 14, BUN 62, creatinine 2.6, GFR 21, glucose 78, calcium 8.2, magnesium 2.1, bilirubin 0.8. AST 50, ALT 57, alk phos 233, albumin 2.8. Blood cultures no growth. Chest x-ray shows bilateral pleural effusion unchanged, cardiomegaly. IMPRESSION AND PLAN: 1. Acute renal failure, status post hemodialysis times one via the right groin hemodialysis catheter placed. 2. Paroxysmal atrial fibrillation with rapid ventricular response and slow ventricular response. 3. Status post permanent pacemaker implant. 4. Acute tubular necrosis. 5. Non-hemolyzed hyperkalemia with increased anion gap metabolic acidosis and respiratory acidosis. 6. Post-pacemaker insertion, left apical pneumothorax. 7. Sepsis secondary to aspiration pneumonia with acute hypercapneic, hypercarbic BiPAP dependent respiratory failure. 8. Severe deconditioning and gait dysfunction. 9. Transient hypotension. 10. Leukocytosis with granulocytosis. 11. Bandemia. 12. Respiratory acidosis with hypercarbia and metabolic acidosis. 13. Hyper-procalcitoninemia. 14. Transaminitis with hyperbilirubinemia. 15. Hyponatremia. 16. Non-hemolyzed hyperkalemia. 17. Vancomycin-resistant Enterococcus faecalis urinary tract infection. 18. Left anterior hemiblock. 19. Incomplete left bundle branch block. 20. Acute renal failure with acute tubular necrosis. 21. Cardiomegaly. 22. Moderate bilateral pleural effusion with congestive heart failure. 23. Cardiomegaly. 24. Sick sinus syndrome. 25. Atrial fibrillation with rapid ventricular response and slow ventricular response with multiple pauses and asystole. 1. Acute renal failure, status post hemodialysis x 1 via the right groin hemodialysis catheter. 2. Paroxysmal atrial fibrillation, status post permanent pacemaker implant. 3. Acute tubular necrosis. 4. Non-hemolyzed hyperkalemia with increased anion gap metabolic acidosis and respiratory acidosis. 5. Hypercapnic hypercarbic respiratory failure, bilevel positive airway pressure dependent. 6. Respiratory acidosis with hypercarbia. 7. Metabolic encephalopathy. 8. Sepsis secondary to aspiration pneumonia with acute hypercapneic hypercarbic bilevel positive airway pressure-dependent respiratory failure. 9. Volume overload with diastolic congestive heart failure. 10. Paroxysmal atrial fibrillation with rapid and slow ventricular response with multiple long pauses. 11. Post pacemaker implant, left apical pneumothorax, status post pigtail chest tube placement. 12. Severe deconditioning and gait dysfunction. 13. Multisystem organ failure. 14. Possible hypovolemic hypotensive shock with hypoxemia. 15. Persistent leukocytosis with granulocytosis and bandemia. 16. Severe increased anion gap metabolic acidosis with respiratory acidosis. 17. Non-hemolyzed hyperkalemia. 18. Transaminitis. 19. Hypoalbuminemia. 20. Hyperprocalcitoninemia. 21. Vancomycin-resistant Enterococcus faecium urinary tract infection. 22. Status post right groin hemodialysis catheter placement. 23. History of anxiety, history of dementia, history of Parkinson's disease, history of hypovitaminosis D. 1. Bilevel positive airway pressure dependent respiratory failure. 2. Status post single chamber pacemaker implant. 3. Sick sinus syndrome, paroxysmal atrial fibrillation, tachybrady syndrome with asystole and multiple pauses of more than 6 seconds. 4. Status post permanent pacemaker implant on the left upper chest. 5. Post-pacemaker implant, post-pacemaker implant, post-pacemaker implant, left apical pneumothorax. 6. Status post left-sided pigtail chest tube placement. 7. Severe kyphosis. 8. Thoracic spondylosis and osteopenia. 9. Paroxysmal atrial fibrillation with rapid ventricular response and slow ventricular response with pauses and period of asystole. 10. Cardiomegaly. 11. Encephalopathy with lethargy. 12. Diffuse cerebral cortical atrophy of the brain with ventricular prominence with small vessel chronic microvascular ischemic disease of the brain. 13. Left anterior hemiblock and left bundle branch block. 14. Vancomycin-resistant Enterococcus faecium urinary tract infection. 15. 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 16. Acute renal failure. 17. Hypercapnic respiratory failure. 18. Status post rapid response secondary to asystole and multiple long cardiac pauses. 19. Possible multisystem organ failure. 20. Severe deconditioning. 21. Hypercapnic respiratory failure with severe metabolic acidosis. 22. Non-hemolyzed hyperkalemia. 23. Acute kidney injury, acute renal failure. 24. Hyperprocalcitoninemia. 1. Status post rapid response. 2. Severe symptomatic bradycardia with cardiac pauses. 3. Possibly beta juan alberto, calcium channel juan alberto induced. 4. Atrial fibrillation with slow ventricular response and pauses. 5. Transient hypotension. 6. Metabolic acidosis. 7. Transient hypotension. 8. Atrial fibrillation with slow ventricular response and pauses and sinus bradycardia. 9. Leukocytosis with granulocytosis. 10. Thrombocytosis. 11. Atrial fibrillation. 12. Hypoxemia. 13. Transient metabolic acidosis. 14. Acute kidney injury with underlying chronic kidney disease stage III/IV. 15 Transaminitis. 16. Possible diastolic congestive heart failure with elevated BNP. 17. Enterococcus faecium urinary tract infection. 18. Bilateral lower lobe infiltrates, effusion and cardiomegaly with congestive heart failure. 19. Enterococcus faecium urinary tract infection. 20. Severe deconditioning and gait dysfunction and possibly functional quadriplegia. 21. Bilateral pleural effusion and cardiomegaly. 22. Atrial fibrillation with slow ventricular response. 23. Sinus bradycardia with first degree AV block and left anterior hemiblock and left bundle branch block. 24. Cerebral cortical atrophy of the brain with ventricular prominence. 25. Chronic microvascular ischemic disease of the brain. 26. 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 27. Status post loop colostomy, postop day #4. 28. Acute kidney injury with underlying chronic kidney disease stage III. 29. History of moderate aortic regurgitation, mild aortic stenosis, moderate mitral regurgitation, mild tricuspid regurgitation. 30. Status post diverting colostomy and loop colostomy. 31. Deconditioning. 32. Gait dysfunction. 1. Volume overload versus questionable diastolic congestive heart failure with bilateral bibasilar infiltrates and effusion and cardiomegaly. 2. Atrial fibrillation. 3. History of hypertension. 4. Leukocytosis with granulocytosis. 5. Normocytic anemia. 6. Transient Hypernatremia. 7. Acute kidney injury with chronic kidney disease, stage III. 8. Hypocalcemia. 9. Hypoalbuminemia. 10. Sepsis. 11. Sepsis with urinary tract infection and colovesicular/colovaginal fistula. 12. Status post loop colostomy, postoperative day 3. 13. Gait dysfunction. 14. Deconditioning. 1. Sepsis, secondary to rectovaginal, rectovesical fistula with inadequate drainage of urine and stool,status post loop colostomy,postop day 2. 2. Questionable lethargy, etiology undetermined. 3. Paroxysmal atrial fibrillation. 4. Leukocytosis with granulocytosis. 5. Normocytic anemia. 6. Transient coagulopathy. 7. Hypernatremia. 8. Hypokalemia. 9. Acute kidney injury with underlying chronic kidney disease stage III with prerenal kidney injury. 10. Hypocalcemia. 11. Mild hypoalbuminemia. 12. Left bundle branch block, left anterior hemiblock 13. Status post loop colostomy, postop day 2. 14. Sepsis, secondary to colovesicular, colovaginal fistula. 15. Encephalopathy. 16. History of anxiety, history of dementia, history of Parkinson disease, history of depression, history of hypovitaminosis D. 1. 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 2. Status post loop colostomy. 3. 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 4. Atrial fibrillation with rapid ventricular response. 5. Left anterior hemiblock. 6. Left bundle branch block. 7. Transient hypotension and bradycardia. 8. Hypernatremia. 9. Acute kidney injury with underlying chronic kidney disease stage III/IV. 10. Indeterminate troponin. 11. Leukocytosis with granulocytosis. 12. Transient coagulopathy. 13. Hyponatremia. 14. Prerenal kidney injury. 15. Severe gait dysfunction and deconditioning. 16. Status post colostomy diversion. 17. Paroxysmal atrial fibrillation converting to normal sinus rhythm with left axis deviation, left anterior hemiblock, left bundle branch block. 18. Urinary retention. 19. History of dementia, Parkinson disease. 20. Transient confusional state. 21. Transient agitation (resolved). 22. Deconditioning. 23. Gait dysfunction. 24. Status post loop colostomy, postop day 1. 25. Deconditioning. 26. Gait dysfunction. 27. Questionable possible functional quadriplegia. 28. History of anxiety. 29. History of dementia. 30. History of Parkinson disease. 31. History of hypovitaminosis D. 1. Sepsis with leukocytosis and granulocytosis. 2. New onset atrial fibrillation with rapid ventricular response and indeterminate troponin. 3. Moderate aortic regurgitation, mild aortic stenosis, moderate mitral regurgitation with left ventricular ejection fraction of 55%. 4. Left anterior hemiblock. 5. Questionable left bundle branch block. 6. Lateral wall ischemic changes on the EKG. 7. Severe deconditioning, gait dysfunction versus questionable and possible functional quadriplegia. 8. Sepsis, secondary to rectovesical and rectovaginal fistula and inadequate drainage of urine and stool. 9. Status post treatment for Escherichia coli urinary tract infection, secondary to rectovesical, rectovaginal fistula. 10. Acute kidney injury. 11. Transient hypotension. 12. History of hypertension. 13. Anemia. 14. Leukocytosis. 15. Normocytic iron deficiency anemia. 16. Mild coagulopathy, secondary to anticoagulation. 17. Hypokalemia. 18. Acute kidney injury with underlying chronic kidney disease stage IV. 19. Hypoalbuminemia. 20. Indeterminate troponin. 21. Hypotension with sepsis and new onset atrial fibrillation with rapid ventricular response. 22. History of Parkinson disease, dementia, history of anxiety, depression, history of hypovitaminosis D. 1. Recurrent urinary retention with urinary bladder distention. 2. Questionable systemic inflammatory response syndrome versus sepsis with low- grade fever of 105, tachycardia 3. Leukocytosis with granulocytosis. 4. Normocytic anemia. 5. Hypokalemia. 6. Acute kidney injury. 7. Mild hypoalbuminemia 8. Severe deconditioning, gait dysfunction and bedridden status with questionable functional quadriplegia. 9. History of dementia, depression, Parkinson's disease, history of hypertension. 10. Hypovitaminosis D. 11. Deconditioning. 1. Recurrent urinary retention with urinary bladder distention. 2. Severe deconditioning and gait dysfunction. 3. Functional quadriplegia with severe deconditioning and gait dysfunction and bedridden status. 4. Small bilateral pleural effusion and bibasilar atelectasis. 5. Questionable sigmoid colitis with mural thickening. 6. Urinary retention with distended urinary bladder with air fluid level. 7. Hypertension. 8. Tachycardia. 9. Leukocytosis with granulocytosis. 10. Questionable systemic inflammatory response syndrome. 11. Normocytic anemia. 12. Acute recurrent kidney injury. 13. 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 14. Normocytic iron deficiency anemia. 15. Chronic kidney disease stage II/III. 1. Severe deconditioning, severe gait dysfunction and possible questionable functional quadriplegia. 2. Urinary retention. 3. Colovesicular and colovaginal fistula. 4. Abdominal distention, probably secondary to urinary retention. 5. Sepsis secondary to Escherichia coli urinary tract infection and colovesicular and colovaginal fistula. 6. Hypertension. 7. Questionable ileus with constipation, fecal retention, fecal stasis. 8. Asymptomatic hypoxemia. 9. Status post acute renal failure. 10. Normocytic iron deficiency anemia. 11. Status post IV Venofer infusion. 12. Leukocytosis with granulocytosis. 13. Status post acute renal failure. 14. Hypocalcemia. 15. Mild hypoalbuminemia. 16. History of anxiety disorder, history of dementia, history of depression, history of Parkinson's disease, hypovitaminosis D. 1. Severe deconditioning and gait dysfunction. 2. Deconditioning. 3. Questionable constipation and fecal retention. 4. Asymptomatic hypoxemia. 5. Leukocytosis with granulocytosis. 6. Normocytic anemia. 7. Prerenal kidney injury. 8. Status post acute renal failure. 9. 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 10. Deconditioning. 11. Gait dysfunction. 12. Sepsis secondary to Escherichia coli urinary tract infection. 13. History of colovesicular colovaginal fistula. 14. Dementia. 15. History of Parkinson disease. 16. History of anxiety disorder. 17. History of constipation. 1. Severe deconditioning and gait dysfunction. 2. Possible functional quadriplegia. 3. Nonproteinuric chronic kidney disease stage III. 4. Acute renal failure, secondary to prerenal kidney injury (resolved). 5. Mild venous stasis of the lower extremities. 6. Sepsis with Escherichia coli urinary tract infection. 7. Rectovesical and rectovaginal fistula. 8. Deconditioning. 9. Gait dysfunction. 10. Normocytic anemia. 11. Normocytic iron deficiency anemia. 12. Leukocytosis with granulocytosis. 13. Hypocalcemia. 14. Hypokalemia. 1. Severe gait dysfunction and deconditioning and possible functional quadriplegia. 2. Sepsis secondary to Escherichia coli urinary tract infection with history of rectovaginal, rectovesical fistula. 3. Escherichia coli urinary tract infection. 4. Acute renal failure. 5. Hypoxemia. 6. Normocytic anemia. 7. Leukocytosis with granulocytosis. 8. Status post acute renal failure. 9. Hypocalcemia. 10. Mild hypoalbuminemia. 11. History of dementia, Parkinson's disease, anxiety, and possible depression. 12. Prerenal kidney injury. 13. Non-proteinuric chronic kidney disease stage III. 14. History of anxiety. 15. History of dementia, history of depression, history of hypovitaminosis D. 1. Severe deconditioning and gait dysfunction and possible bedridden status and possible functional quadriplegia. 2. Sepsis secondary to a Escherichia coli urinary tract infection with history of vaginal and rectovesical fistula. 3. Deconditioning. 4. Escherichia coli urinary tract infection. 5. Acute renal failure. 6. History of hypertension. 7. Asymptomatic hypoxemia. 8. Kyphosis of the thoracic spine. 9. Hypoalbuminemia. 10. Hypocalcemia. 11. Normocytic anemia. 12. Hypokalemia. 13. Oropharyngeal dysphagia with impulsive and unsafe eating behaviors. 14. History of anxiety disorder. 15. History of dementia. 16. History of Parkinson disease. 17. History of normocytic iron deficiency anemia. 1. Severe gait dysfunction, deconditioning and bedridden status. 2. Questionable and possible functional quadriplegia. 3. Escherichia coli urinary tract infection. 4. Acute renal failure. 5. Systemic inflammatory response syndrome versus possible sepsis secondary to Escherichia coli urinary tract infection. 6. Colovesical and colovaginal fistula. 7. History of hypertension. 8. Asymptomatic hypoxemia. 9. Normocytic iron deficiency anemia. 10. Normal potassium. 11 Acute renal failure with mild prerenal kidney injury. 12. Non-proteinuric chronic kidney disease stage III/IV. 13. Hypocalcemia. 14. Hypoalbuminemia. 15. Malnutrition. 16. History of anxiety disorder. 17. History of dementia. 18. Iron deficiency normocytic anemia. 19. History of anxiety disorder. 20. Hypovitaminosis D. 21. Hyperuricemia. 22. Deconditioning. 1. Acute renal failure. 2. Systemic inflammatory response syndrome versus possible sepsis secondary to Escherichia coli urinary tract infection. 3. Colovesicular and colovaginal fistula. 4. Acute renal failure. 5. Poor compliance. 6. Severe gait deconditioning and severe gait dysfunction and bedridden status. 7. Functional quadriplegia. 8. Transient asymptomatic hypoxemia. 9. Leukocytosis with granulocytosis. 10. Normocytic iron deficiency anemia. 11. Transient hypernatremia. 12. Acute renal failure. 13. Hyperuricemia. 14. Transaminitis. 15. . 16. Hyperuricemia. 17. Iron deficiency normocytic anemia. 18. Escherichia coli urinary tract infection with proteinuria, hematuria, bacteriuria and pyuria. 19. Sepsis secondary to Escherichia coli urinary tract infection. 20. Mild aortic stenosis. 21. Moderate aortic regurgitation, moderate mitral regurgitation and mild tricuspid regurgitation. 22. History of anxiety disorder, history of dementia, history of hypovitaminosis D and hyperuricemia. 1. Acute renal failure. 2. Questionable sepsis with leukocytosis, granulocytosis. 3. Normocytic anemia. 4. Hypertension. 5. History of dementia. 6. Leukocytosis with granulocytosis. 7. Normocytic anemia. 8. Transient hypernatremia. 9. Acute kidney injury and acute renal failure (resolving). 10. Severe gait dysfunction, deconditioning and possible functional quadriplegia. 11. Hyperuricemia. 12. Transaminitis. 13. Hyperprocalcitoninemia. 14. Hypovitaminosis D. 15. Acute renal failure and acute kidney injury. 16. Escherichia coli urinary tract infection with hematuria, pyuria, bacteriuria. 17. Systemic inflammatory response syndrome with possible sepsis secondary to Escherichia coli urinary tract infection with ____vaginal and ____ fistula. 18. Prerenal azotemia. 19. Chronic kidney disease, stage, IIIB, nonproteinuric. 20. Severe deconditioning and gait dysfunction. 21. Chronic ____, ____ fistula with Escherichia coli urinary tract infection. 22. Moderate aortic and moderate mitral regurgitation. 23. Mild mitral valve prolapse, calcified aortic valve with mild aortic stenosis and moderate aortic regurgitation and moderate mitral regurgitation and mild tricuspid regurgitation with left ventricular ejection fraction of 55%. 24. Gait dysfunction. 25. Deconditioning 26. Anxiety disorder. 27. Dementia. 28. Hypovitaminosis D. 29. Hyperuricemia. 1. Acute renal failure. 2. Questionable sepsis with leukocytosis and granulocytosis. 3. Normocytic anemia. 4. Questionable hemorrhagic cystitis. 5. Questionable hemorrhagic cystitis with intrinsic mural and perivesicular abnormalities and dependent echogenic material debris in the bladder. 6. Left bundle-branch block and left axis deviation. 7. Left lower lung pleural thickening. 8. Cardiomegaly. 9. Sigmoid diverticulosis. 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 11. 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 12. Status post hysterectomy. 13. Sigmoid diverticulosis. 14. Leukocytosis with granulocytosis. 15. Normocytic anemia. 16. Hyponatremia. 17. Slow-resolving acute renal failure. 18. Hyperuricemia. 19. History of dementia. 20. Deconditioning. 21. Gait dysfunction. 22. Recurrent fall. 23. Questionable functional quadriplegia. 24. Hypovitaminosis D. 25. History of dyslipidemia. 26. History of angina, history of hypertension, history of dementia. 1. Altered mental status, etiology undetermined. 2. Acute renal failure and acute kidney injury and prerenal kidney injury. 3. Questionable and possible urinary tract infection. 4. Recurrent fall and gait dysfunction. 5. History of dementia. 6. Questionable swallowing and feeding dysfunction. 7. Leukocytosis with granulocytosis. 8. Normocytic anemia. 9. Hyperuricemia. 10. Hyperphosphatemia. 11. Transaminitis. 12. Elevated BNP with history of congestive heart failure. 13. Hematuria, pyuria, bacteriuria. 14. Left bundle branch block and left axis deviation. 15. Generalized osteopenia and thoracolumbar spondylosis with old healed left rib fracture. 16. Status post mastectomy for left breast carcinoma. 17. Gait dysfunction. 18. Recurrent falls. 19. 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 20. Questionable cystitis with thickened urinary bladder wall. 21. Questionable echogenic urinary bladder mass. 22. History of dementia. 23. History of hypovitaminosis D, history of anxiety, history of dementia, history of congestive heart failure, history of angina, history of dementia. 24. History of colovesicular and colovaginal fistula. 1. questionable atrial fibrillation with rapid ventricular response. 2. Left anterior hemiblock. 3. Hypertensive cardiovascular disease. 4. Questionable lateral ischemic changes. 1. Asymptomatic intermittent nonsustained ventricular tachycardia. 2. Volume overload. 3. History of dementia, history of depression, history of anxiety, history of Parkinson's disease. 4. Hypovitaminosis D. 5. Hypokalemia. 6. Acute kidney injury. PLAN: At this time, the patient was seen again by Ana Rogel palliative care nurse, hospice and home hospice request has been rescinded as per the patient's and the family and the son request. The patient has been ordered serial labs. The family is requesting initiation of the hemodialysis, regarding which airport electrician has been contacted. CURRENT MEDICATIONS: 1. Ativan 0.5 mg twice a day, Cardizem 30 mg 3 times a day by Dr. Peoples, patient is on D5W at 50 mL an hour, Vibramycin 100 mg IV q. 12, Exelon 4.5 mg tablets twice a day, selenium 200 mcg daily, Klonopin 4 mg at bedtime, Lasix 20 mg IV q. [address] Ash, Meropenem 1 g IV q. 12, Protonix 40 mg IV daily, Requip 8 mg daily, Tenormin, started by Dr. Jose 12.5 twice a day. The patient is on verapamil 2.5 IV q. 6 hours p.r.n., vitamin D3 2000 units daily, Xopenex 0.63 mg nebulizer q. 6 hours. The patient was on BiPAP. The patient has been ordered liquid diet by surgery. The patient is on ADRIANO stockings, SCDs ordered. Physical therapy, occupational therapy ordered. The patient's overall prognosis is extremely guarded to poor because of multiple complicated medical problems and deconditioned state. The patient's family including her and son has been explained about the patient's multiple complicated medical problems, overall, guarded to poor prognosis in layman's language. All questions and concerns answered to their satisfaction. DICTATED AND ELECTRONICALLY SIGNED NOT READ. Rigo U Sam ANGEL cc: [id number] TT: 11/21/2016 12:16:15 Confirmation # [id number] Dictation # [id number]
--- NOTE | 2016-11-21 15:33 | PN ---
DATE: 11/21/2016 The patient is in bed, in no acute distress, was seen early this morning. PHYSICAL EXAMINATION: VITAL SIGNS: Temperature is 97, blood pressure is 103/60, respiratory rate of 18. HEENT: Unremarkable. NECK: Supple. LUNGS: Have decreased breath sounds. HEART: Normal S1, S2. ABDOMEN: Soft. LABORATORY EXAMINATION: Reveals a white count of 11,000, hemoglobin of 11, platelets of 204. Chemis tries reveals a BUN of 62, creatinine of 2.6, alkaline phosphatase is 233. Serology was negative. T he urine culture is VRE. No urinalysis is available. Dr. Vargas's note is reviewed. Dr. Alfredo' note is reviewed. Chest x-ray is noted, no active disea se. Dr. Peoples's note is reviewed. ASSESSMENT AND PLAN: An 81-year-old female with new onset of sepsis secondary to aspiration pneumoni a, acute respiratory failure due to fluid overload, congestive heart failure, volume overload, acute on chronic renal injury and with cardiac arrhythmia, atrial fibrillation, status post pacemaker place ment, development of left-sided pneumothorax. Currently, will change the doxycycline to p.o. and lexie openem, day #7 on the antibiotics. The patient does have vancomycin-resistant enterococci in the uri ne. Will request a urinalysis and a urine culture and leukocytosis appears to be improving. Will fo llow with you. Austen Bradford MD cc: [id number] TT: 11/21/2016 15:33:15 Confirmation # [id number] Dictation # [id number] en
[2016-11-21 17:12] LABS: URINE BILIRUBIN LARGE (NEGATIVE); URINE BLOOD LARGE (NEGATIVE); URINE GLUCOSE (UA) NEGATIVE (NEGATIVE); URINE KETONE NEGATIVE (NEGATIVE); URINE LEUKOCYTE ESTERASE MODERATE Leu/uL (NEGATIVE); URINE PROTEIN 100 mg/dL (<30 mg/dL)
[2016-11-21 17:16] LABS: URINE APPEARANCE TURBID (CLEAR); URINE COLOR YELLOW (YELLOW)
[2016-11-21 17:22] LABS: URINE BACTERIA MANY (NEG); URINE WBC TNTC /hpf (0-6)
--- NOTE | 2016-11-21 18:46 | PN ---
DATE: 11/21/2016 HISTORY OF PRESENT ILLNESS: An 81-year-old female with past medical history of hypertension, CHF, CKD rectovesical/rectovaginal fistulas, initially admitted with UTI sepsis secondary to rectovesical fis gerardo, now status post loop colostomy procedure done 7 days ago. Nephrology following the patient for acute renal failure. The patient seen early this afternoon. Per family, she has been very alert, talking and laughing wit h them. Denies any shortness of breath. Tolerating diet. PHYSICAL EXAMINATION: VITAL SIGNS: Blood pressure this morning 103/64, heart rate 125, respirations 20, temperature 97.4, O2 sat was 100% on O2 via nasal cannula. GENERAL: No distress. Conversing coherently in full sentences, energetic, not lethargic. HEENT: Moist mucous membranes. No scleral icterus. CHEST: Mild basilar rales appreciated. Otherwise, no rhonchi, no wheezes. CARDIOVASCULAR: Soft systolic murmur. Irregular rate. Elevated JVD appreciated. ABDOMEN: Soft, nontender, nondistended. GENITOURINARY: No blood or distention on exam. EXTREMITIES: Bilateral moderate leg edema. LABORATORY DATA: CBC: WBC 11.2, hemoglobin 11.7, hematocrit 38.4, platelets 204. Chemistry: Sodiu m 149, potassium 4.3, chloride 115, bicarbonate 24, BUN 62, creatinine 2.6, calcium 8.2, glucose 78, albumin 2.8. UA this afternoon: Moderate leukocyte esterase, many bacteria. ASSESSMENT: 1. Acute renal failure on chronic kidney disease secondary to acute tubular necrosis in the setting of transient hypotension, oliguric renal failure, hyperkalemia currently resolved after being given K ayexalate yesterday evening. Status post 1 session of hemodialysis 2 days ago. Volume status is rel atively stable with chest x-ray not showing any pulmonary edema, only pleural effusions. BUN and crea tinine are rising. However, no urgent indication for hemodialysis today and we will hold off in orde r to assess for any possible renal recovery. The patient's family revoking hospice care and are agre eable to hemodialysis. If serum creatinine continue to rise, we will give a session of dialysis germán rrow preemptively to avoid any need for emergent dialysis over the weekend. 2. Hypercapnic respiratory failure in the setting of congestive heart failure. Last ABG done 2 days ago showed severe respiratory acidosis, not responding to BiPAP; however, the patient has been off B iPAP for over 24 hours and shows no sign of hypercapnia on exam, with mental status lucid. Neverthel ess, we will avoid high bicarb dialysate as this would only worsen hypercapnia if the patient cannot adequately ventilate. 3. Sepsis. Urine growing VRE. Procalcitonin level elevated. The patient's clinical improvement co incides with escalating antibiotic coverage. Started on meropenem and given a dose of daptomycin 2 d ays ago. Also on doxycycline. Should consider re-dosing meropenem at q. 24 hours for advanced renal failure. If VRE is being treated with daptomycin, will need to be re-dosed after hemodialysis tomorr ow. No need for renal dose adjustment for doxycycline. 4. Congestive heart failure. Chest x-ray findings show improvement in vascular congestion. Tolerated 1 liter of UF on hemodialysis 2 days ago. Remote possibility that UF helped decrease venous congest ion and help offset a cardiorenal component of acute renal failure and this can be one explanation fo r improvement in urine output seen after dialysis done. Nevertheless, still oliguric. We will contin ue with IV Lasix 20 mg q. 12 hours. 5. Hypernatremia. Approximately 1 liter free water deficit not improving despite patient on p.o. t, being started on D5W at 50 mL per hour. 6. Rectovesical fistula status post diverting colostomy. Urine sediment seen in Ramirez bag may be du e to some residual stool seeping into bladder. Concern for Ramirez obstructive as was seen previously. Continue bladder irrigation q. 4-6 hours. Wally Ash MD cc: [id number] TT: 11/21/2016 18:45:18 Confirmation # [id number] Dictation # [id number] ln
[2016-11-22] MEDS: Levalbuterol 0.63 MG/3 ML Inhal Soln UD IH SCH ×4 (01:25→21:19)
[2016-11-22 09:03] LABS: ADD MANUAL DIFF? NO
[2016-11-22 09:12] LABS: BASO # 0.01 K/mm3 (0.0-2.0); BASO % 0.1 % (0.0-3.0); EOS # 0.1 (0.0-0.7); EOS % 0.6 % (1.5-5.0); GRAN # 9.81 (1.4-6.5); GRAN % 72.4 % (50.0-68.0); HEMATOCRIT 37.9 % (36.0-48.0); LYMPH # 2.5 (1.2-3.4); LYMPH % 18.5 % (22.0-35.0); MEAN CELL VOLUME 103.6 fL (80.0-105.0); MEAN CORPUSCULAR HEMOGLOBIN 31.4 pg (25.0-35.0); MEAN CORPUSCULAR HGB CONC 30.3 g/dl (31.0-37.0); MEAN PLATELET VOLUME 10.5 fl (7.0-11.0); MONO # 1.1 (0.1-0.6); MONO % 8.4 % (1.0-6.0); PLATELET COUNT 156 10^3/uL (120.0-450.0); RED CELL DISTRIBUTION WIDTH 22.4 % (11.5-14.5); WHITE BLOOD COUNT 13.6 10^3/ul (4.5-11.0)
[2016-11-22 09:18] LABS: INR 1.11 (0.93-1.08); PARTIAL THROMBOPLASTIN TIME 28.4 Seconds (23.7-30.8)
[2016-11-22 09:22] LABS: ALB/GLOB RATIO 0.8 (1.1-1.8); BILIRUBIN,DIRECT 0.7 mg/dL (0.0-0.4); BILIRUBIN,TOTAL 0.8 mg/dL (0.2-1.3); CALCIUM 7.9 mg/dL (8.4-10.5); MAGNESIUM 1.9 mg/dL (1.7-2.2); POTASSIUM 4.5 mmol/L (3.6-5.0); TOTAL PROTEIN 5.8 g/dL (5.8-8.3)
[2016-11-22] MEDS: Meropenem 1g/NS 100mL IVPB 1 GM/100 ML PIGGYBACK IVPB SCH ×2 (10:27→22:46)
[2016-11-22] MEDS: SELENIUM 200 MCG PO SCH (10:27)
--- NOTE | 2016-11-22 10:41 | PN ---
DATE: 11/22/2016 The patient is seen in room 568, bed 1. The patient is lying in the bed. The patient is completely alert, awake, responsive, answers questions. The patient' s and son are at bedside. According to the patient's son, patient's appetite is improving. The patient is more alert, more communicative. Overnight nurse's notes were reviewed. The patient needed Ramirez catheter irrigation with normal saline. According to the nurse's note, the patient was found to be alert, awake, oriented x 3. The patient was seen by the social security benefits interviewer, case management yesterday because patient's family declined home hospice , which was cancelled. PHYSICAL EXAMINATION: VITAL SIGNS: T-max 98.4, heart rate 63, blood pressure 90/43, respirations 18, O2 sat 100%. HEAD: Normocephalic, atraumatic. HEENT: Shows pinkish, pale conjunctivae, anicteric sclerae, No oropharyngeal lesion. NECK: No neck rigidity. CHEST: Kyphosis. LUNGS: Shows decreased breath sounds at the bases, left more than the right. Occasional rhonchi upper lung walls anteriorly. CARDIOVASCULAR: S1, S2. Irregularly irregular rhythm. Positive systolic murmur left sternal border, left second intercostal space, right second intercostal space. ABDOMEN: Slightly protuberant, positive right-sided colostomy, positive suprapubic tenderness, but no distention. GENITALIA: Female. Positive Ramirez catheter. Positive right groin dialysis catheter. EXTREMITIES: Shows positive swelling of the lower extremity, trace pitting edema. MUSCULOSKELETAL: Shows a body mass index of 27. NEUROLOGIC: The patient is alert, awake, responsive. Answers questions. DIAGNOSTICS: Chest x-ray examination shows positive bilateral pleural effusion , positive bilateral lung field haziness. LABORATORY DATA: 11/22/2016: WBC count is 13.6, hemoglobin/hematocrit 11.5 and 37.9, platelet 156, granulocytes 72%. PT, PTT 12 and 28.4. Sodium is down to 142, potassium 4.5, chloride 114, CO2 19, anion gap 14, BUN 67, creatinine 2.3, GFR 25, glucose 103, calcium 7.9, magnesium 1.9. AST is normalized to 32, ALT 46 , alk phos 193, total albumin 2.5. Urinalysis done yesterday, pH 6.0, specific gravity 1.025, 100 protein, large blood, large bilirubin, moderate leukocyte esterase, WBC too numerous to count, yeast and many bacteria. IMPRESSION AND PLAN: 1. Acute renal failure, status post hemodialysis via the right groin hemodialysis catheter. 2. Hypotension. 3. Paroxysmal atrial fibrillation. 4. Hypotension. 5. Leukocytosis with granulocytosis. 6. Bandemia with leukocytosis. 7. Severe metabolic acidosis and respiratory acidosis and hypercarbic, hypercapnic respiratory BiPAP-requiring respiratory failure. 8. 7. Non-hemolyzed hyperkalemia. 9. Transient hyponatremia. 10. Hyperphosphatemia. 11. Transaminitis. 12. Secondary hyperparathyroidism with elevated intact PTH. 13. Hypoalbuminemia. 14. Hyper-procalcitoninemia. 15. Proteinuria, hematuria, pyuria, bacteriuria, funguria. 16. Vancomycin-resistant Enterococcus faecium urinary tract infection. 17. Severe deconditioning and gait dysfunction. 18. Bilateral lower extremity venous stasis. 19. Status post loop colostomy. 20. Acute tubular necrosis secondary to hypotension. 21. Oliguric acute renal failure. 22. Non-hemolyzed hyperkalemia. 23. Possible diastolic congestive heart failure with volume overload and bilateral pleural effusion. 24. Hypercarbic hypercapnic respiratory failure. 25. Severe metabolic and respiratory acidosis. 26. Sepsis secondary to aspiration pneumonia. 27. Severe sepsis secondary to aspiration pneumonia and vancomycin-resistant Enterococcus urinary tract infection. 28. Atrial fibrillation. 29. Status post permanent pacemaker implant. 30. Post permanent pacemaker implant, left-sided apical pneumothorax. 31. Bilateral persistent pleural effusion and cardiomegaly. 32. Left anterior hemiblock and left bundle branch block. 1. Acute renal failure, status post hemodialysis times one via the right groin hemodialysis catheter placed. 2. Paroxysmal atrial fibrillation with rapid ventricular response and slow ventricular response. 3. Status post permanent pacemaker implant. 4. Acute tubular necrosis. 5. Non-hemolyzed hyperkalemia with increased anion gap metabolic acidosis and respiratory acidosis. 6. Post-pacemaker insertion, left apical pneumothorax. 7. Sepsis secondary to aspiration pneumonia with acute hypercapneic, hypercarbic BiPAP dependent respiratory failure. 8. Severe deconditioning and gait dysfunction. 9. Transient hypotension. 10. Leukocytosis with granulocytosis. 11. Bandemia. 12. Respiratory acidosis with hypercarbia and metabolic acidosis. 13. Hyper-procalcitoninemia. 14. Transaminitis with hyperbilirubinemia. 15. Hyponatremia. 16. Non-hemolyzed hyperkalemia. 17. Vancomycin-resistant Enterococcus faecalis urinary tract infection. 18. Left anterior hemiblock. 19. Incomplete left bundle branch block. 20. Acute renal failure with acute tubular necrosis. 21. Cardiomegaly. 22. Moderate bilateral pleural effusion with congestive heart failure. 23. Cardiomegaly. 24. Sick sinus syndrome. 25. Atrial fibrillation with rapid ventricular response and slow ventricular response with multiple pauses and asystole. 1. Acute renal failure, status post hemodialysis x 1 via the right groin hemodialysis catheter. 2. Paroxysmal atrial fibrillation, status post permanent pacemaker implant. 3. Acute tubular necrosis. 4. Non-hemolyzed hyperkalemia with increased anion gap metabolic acidosis and respiratory acidosis. 5. Hypercapnic hypercarbic respiratory failure, bilevel positive airway pressure dependent. 6. Respiratory acidosis with hypercarbia. 7. Metabolic encephalopathy. 8. Sepsis secondary to aspiration pneumonia with acute hypercapneic hypercarbic bilevel positive airway pressure-dependent respiratory failure. 9. Volume overload with diastolic congestive heart failure. 10. Paroxysmal atrial fibrillation with rapid and slow ventricular response with multiple long pauses. 11. Post pacemaker implant, left apical pneumothorax, status post pigtail chest tube placement. 12. Severe deconditioning and gait dysfunction. 13. Multisystem organ failure. 14. Possible hypovolemic hypotensive shock with hypoxemia. 15. Persistent leukocytosis with granulocytosis and bandemia. 16. Severe increased anion gap metabolic acidosis with respiratory acidosis. 17. Non-hemolyzed hyperkalemia. 18. Transaminitis. 19. Hypoalbuminemia. 20. Hyperprocalcitoninemia. 21. Vancomycin-resistant Enterococcus faecium urinary tract infection. 22. Status post right groin hemodialysis catheter placement. 23. History of anxiety, history of dementia, history of Parkinson's disease, history of hypovitaminosis D. 1. Bilevel positive airway pressure dependent respiratory failure. 2. Status post single chamber pacemaker implant. 3. Sick sinus syndrome, paroxysmal atrial fibrillation, tachybrady syndrome with asystole and multiple pauses of more than 6 seconds. 4. Status post permanent pacemaker implant on the left upper chest. 5. Post-pacemaker implant, post-pacemaker implant, post-pacemaker implant, left apical pneumothorax. 6. Status post left-sided pigtail chest tube placement. 7. Severe kyphosis. 8. Thoracic spondylosis and osteopenia. 9. Paroxysmal atrial fibrillation with rapid ventricular response and slow ventricular response with pauses and period of asystole. 10. Cardiomegaly. 11. Encephalopathy with lethargy. 12. Diffuse cerebral cortical atrophy of the brain with ventricular prominence with small vessel chronic microvascular ischemic disease of the brain. 13. Left anterior hemiblock and left bundle branch block. 14. Vancomycin-resistant Enterococcus faecium urinary tract infection. 15. 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 16. Acute renal failure. 17. Hypercapnic respiratory failure. 18. Status post rapid response secondary to asystole and multiple long cardiac pauses. 19. Possible multisystem organ failure. 20. Severe deconditioning. 21. Hypercapnic respiratory failure with severe metabolic acidosis. 22. Non-hemolyzed hyperkalemia. 23. Acute kidney injury, acute renal failure. 24. Hyperprocalcitoninemia. 1. Status post rapid response. 2. Severe symptomatic bradycardia with cardiac pauses. 3. Possibly beta juan alberto, calcium channel juan alberto induced. 4. Atrial fibrillation with slow ventricular response and pauses. 5. Transient hypotension. 6. Metabolic acidosis. 7. Transient hypotension. 8. Atrial fibrillation with slow ventricular response and pauses and sinus bradycardia. 9. Leukocytosis with granulocytosis. 10. Thrombocytosis. 11. Atrial fibrillation. 12. Hypoxemia. 13. Transient metabolic acidosis. 14. Acute kidney injury with underlying chronic kidney disease stage III/IV. 15 Transaminitis. 16. Possible diastolic congestive heart failure with elevated BNP. 17. Enterococcus faecium urinary tract infection. 18. Bilateral lower lobe infiltrates, effusion and cardiomegaly with congestive heart failure. 19. Enterococcus faecium urinary tract infection. 20. Severe deconditioning and gait dysfunction and possibly functional quadriplegia. 21. Bilateral pleural effusion and cardiomegaly. 22. Atrial fibrillation with slow ventricular response. 23. Sinus bradycardia with first degree AV block and left anterior hemiblock and left bundle branch block. 24. Cerebral cortical atrophy of the brain with ventricular prominence. 25. Chronic microvascular ischemic disease of the brain. 26. 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 27. Status post loop colostomy, postop day #4. 28. Acute kidney injury with underlying chronic kidney disease stage III. 29. History of moderate aortic regurgitation, mild aortic stenosis, moderate mitral regurgitation, mild tricuspid regurgitation. 30. Status post diverting colostomy and loop colostomy. 31. Deconditioning. 32. Gait dysfunction. 1. Volume overload versus questionable diastolic congestive heart failure with bilateral bibasilar infiltrates and effusion and cardiomegaly. 2. Atrial fibrillation. 3. History of hypertension. 4. Leukocytosis with granulocytosis. 5. Normocytic anemia. 6. Transient Hypernatremia. 7. Acute kidney injury with chronic kidney disease, stage III. 8. Hypocalcemia. 9. Hypoalbuminemia. 10. Sepsis. 11. Sepsis with urinary tract infection and colovesicular/colovaginal fistula. 12. Status post loop colostomy, postoperative day 3. 13. Gait dysfunction. 14. Deconditioning. 1. Sepsis, secondary to rectovaginal, rectovesical fistula with inadequate drainage of urine and stool,status post loop colostomy,postop day 2. 2. Questionable lethargy, etiology undetermined. 3. Paroxysmal atrial fibrillation. 4. Leukocytosis with granulocytosis. 5. Normocytic anemia. 6. Transient coagulopathy. 7. Hypernatremia. 8. Hypokalemia. 9. Acute kidney injury with underlying chronic kidney disease stage III with prerenal kidney injury. 10. Hypocalcemia. 11. Mild hypoalbuminemia. 12. Left bundle branch block, left anterior hemiblock 13. Status post loop colostomy, postop day 2. 14. Sepsis, secondary to colovesicular, colovaginal fistula. 15. Encephalopathy. 16. History of anxiety, history of dementia, history of Parkinson disease, history of depression, history of hypovitaminosis D. 1. 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 2. Status post loop colostomy. 3. 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 4. Atrial fibrillation with rapid ventricular response. 5. Left anterior hemiblock. 6. Left bundle branch block. 7. Transient hypotension and bradycardia. 8. Hypernatremia. 9. Acute kidney injury with underlying chronic kidney disease stage III/IV. 10. Indeterminate troponin. 11. Leukocytosis with granulocytosis. 12. Transient coagulopathy. 13. Hyponatremia. 14. Prerenal kidney injury. 15. Severe gait dysfunction and deconditioning. 16. Status post colostomy diversion. 17. Paroxysmal atrial fibrillation converting to normal sinus rhythm with left axis deviation, left anterior hemiblock, left bundle branch block. 18. Urinary retention. 19. History of dementia, Parkinson disease. 20. Transient confusional state. 21. Transient agitation (resolved). 22. Deconditioning. 23. Gait dysfunction. 24. Status post loop colostomy, postop day 1. 25. Deconditioning. 26. Gait dysfunction. 27. Questionable possible functional quadriplegia. 28. History of anxiety. 29. History of dementia. 30. History of Parkinson disease. 31. History of hypovitaminosis D. 1. Sepsis with leukocytosis and granulocytosis. 2. New onset atrial fibrillation with rapid ventricular response and indeterminate troponin. 3. Moderate aortic regurgitation, mild aortic stenosis, moderate mitral regurgitation with left ventricular ejection fraction of 55%. 4. Left anterior hemiblock. 5. Questionable left bundle branch block. 6. Lateral wall ischemic changes on the EKG. 7. Severe deconditioning, gait dysfunction versus questionable and possible functional quadriplegia. 8. Sepsis, secondary to rectovesical and rectovaginal fistula and inadequate drainage of urine and stool. 9. Status post treatment for Escherichia coli urinary tract infection, secondary to rectovesical, rectovaginal fistula. 10. Acute kidney injury. 11. Transient hypotension. 12. History of hypertension. 13. Anemia. 14. Leukocytosis. 15. Normocytic iron deficiency anemia. 16. Mild coagulopathy, secondary to anticoagulation. 17. Hypokalemia. 18. Acute kidney injury with underlying chronic kidney disease stage IV. 19. Hypoalbuminemia. 20. Indeterminate troponin. 21. Hypotension with sepsis and new onset atrial fibrillation with rapid ventricular response. 22. History of Parkinson disease, dementia, history of anxiety, depression, history of hypovitaminosis D. 1. Recurrent urinary retention with urinary bladder distention. 2. Questionable systemic inflammatory response syndrome versus sepsis with low- grade fever of 105, tachycardia 3. Leukocytosis with granulocytosis. 4. Normocytic anemia. 5. Hypokalemia. 6. Acute kidney injury. 7. Mild hypoalbuminemia 8. Severe deconditioning, gait dysfunction and bedridden status with questionable functional quadriplegia. 9. History of dementia, depression, Parkinson's disease, history of hypertension. 10. Hypovitaminosis D. 11. Deconditioning. 1. Recurrent urinary retention with urinary bladder distention. 2. Severe deconditioning and gait dysfunction. 3. Functional quadriplegia with severe deconditioning and gait dysfunction and bedridden status. 4. Small bilateral pleural effusion and bibasilar atelectasis. 5. Questionable sigmoid colitis with mural thickening. 6. Urinary retention with distended urinary bladder with air fluid level. 7. Hypertension. 8. Tachycardia. 9. Leukocytosis with granulocytosis. 10. Questionable systemic inflammatory response syndrome. 11. Normocytic anemia. 12. Acute recurrent kidney injury. 13. 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 14. Normocytic iron deficiency anemia. 15. Chronic kidney disease stage II/III. 1. Severe deconditioning, severe gait dysfunction and possible questionable functional quadriplegia. 2. Urinary retention. 3. Colovesicular and colovaginal fistula. 4. Abdominal distention, probably secondary to urinary retention. 5. Sepsis secondary to Escherichia coli urinary tract infection and colovesicular and colovaginal fistula. 6. Hypertension. 7. Questionable ileus with constipation, fecal retention, fecal stasis. 8. Asymptomatic hypoxemia. 9. Status post acute renal failure. 10. Normocytic iron deficiency anemia. 11. Status post IV Venofer infusion. 12. Leukocytosis with granulocytosis. 13. Status post acute renal failure. 14. Hypocalcemia. 15. Mild hypoalbuminemia. 16. History of anxiety disorder, history of dementia, history of depression, history of Parkinson's disease, hypovitaminosis D. 1. Severe deconditioning and gait dysfunction. 2. Deconditioning. 3. Questionable constipation and fecal retention. 4. Asymptomatic hypoxemia. 5. Leukocytosis with granulocytosis. 6. Normocytic anemia. 7. Prerenal kidney injury. 8. Status post acute renal failure. 9. 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 10. Deconditioning. 11. Gait dysfunction. 12. Sepsis secondary to Escherichia coli urinary tract infection. 13. History of colovesicular colovaginal fistula. 14. Dementia. 15. History of Parkinson disease. 16. History of anxiety disorder. 17. History of constipation. 1. Severe deconditioning and gait dysfunction. 2. Possible functional quadriplegia. 3. Nonproteinuric chronic kidney disease stage III. 4. Acute renal failure, secondary to prerenal kidney injury (resolved). 5. Mild venous stasis of the lower extremities. 6. Sepsis with Escherichia coli urinary tract infection. 7. Rectovesical and rectovaginal fistula. 8. Deconditioning. 9. Gait dysfunction. 10. Normocytic anemia. 11. Normocytic iron deficiency anemia. 12. Leukocytosis with granulocytosis. 13. Hypocalcemia. 14. Hypokalemia. 1. Severe gait dysfunction and deconditioning and possible functional quadriplegia. 2. Sepsis secondary to Escherichia coli urinary tract infection with history of rectovaginal, rectovesical fistula. 3. Escherichia coli urinary tract infection. 4. Acute renal failure. 5. Hypoxemia. 6. Normocytic anemia. 7. Leukocytosis with granulocytosis. 8. Status post acute renal failure. 9. Hypocalcemia. 10. Mild hypoalbuminemia. 11. History of dementia, Parkinson's disease, anxiety, and possible depression. 12. Prerenal kidney injury. 13. Non-proteinuric chronic kidney disease stage III. 14. History of anxiety. 15. History of dementia, history of depression, history of hypovitaminosis D. 1. Severe deconditioning and gait dysfunction and possible bedridden status and possible functional quadriplegia. 2. Sepsis secondary to a Escherichia coli urinary tract infection with history of vaginal and rectovesical fistula. 3. Deconditioning. 4. Escherichia coli urinary tract infection. 5. Acute renal failure. 6. History of hypertension. 7. Asymptomatic hypoxemia. 8. Kyphosis of the thoracic spine. 9. Hypoalbuminemia. 10. Hypocalcemia. 11. Normocytic anemia. 12. Hypokalemia. 13. Oropharyngeal dysphagia with impulsive and unsafe eating behaviors. 14. History of anxiety disorder. 15. History of dementia. 16. History of Parkinson disease. 17. History of normocytic iron deficiency anemia. 1. Severe gait dysfunction, deconditioning and bedridden status. 2. Questionable and possible functional quadriplegia. 3. Escherichia coli urinary tract infection. 4. Acute renal failure. 5. Systemic inflammatory response syndrome versus possible sepsis secondary to Escherichia coli urinary tract infection. 6. Colovesical and colovaginal fistula. 7. History of hypertension. 8. Asymptomatic hypoxemia. 9. Normocytic iron deficiency anemia. 10. Normal potassium. 11 Acute renal failure with mild prerenal kidney injury. 12. Non-proteinuric chronic kidney disease stage III/IV. 13. Hypocalcemia. 14. Hypoalbuminemia. 15. Malnutrition. 16. History of anxiety disorder. 17. History of dementia. 18. Iron deficiency normocytic anemia. 19. History of anxiety disorder. 20. Hypovitaminosis D. 21. Hyperuricemia. 22. Deconditioning. 1. Acute renal failure. 2. Systemic inflammatory response syndrome versus possible sepsis secondary to Escherichia coli urinary tract infection. 3. Colovesicular and colovaginal fistula. 4. Acute renal failure. 5. Poor compliance. 6. Severe gait deconditioning and severe gait dysfunction and bedridden status. 7. Functional quadriplegia. 8. Transient asymptomatic hypoxemia. 9. Leukocytosis with granulocytosis. 10. Normocytic iron deficiency anemia. 11. Transient hypernatremia. 12. Acute renal failure. 13. Hyperuricemia. 14. Transaminitis. 15. . 16. Hyperuricemia. 17. Iron deficiency normocytic anemia. 18. Escherichia coli urinary tract infection with proteinuria, hematuria, bacteriuria and pyuria. 19. Sepsis secondary to Escherichia coli urinary tract infection. 20. Mild aortic stenosis. 21. Moderate aortic regurgitation, moderate mitral regurgitation and mild tricuspid regurgitation. 22. History of anxiety disorder, history of dementia, history of hypovitaminosis D and hyperuricemia. 1. Acute renal failure. 2. Questionable sepsis with leukocytosis, granulocytosis. 3. Normocytic anemia. 4. Hypertension. 5. History of dementia. 6. Leukocytosis with granulocytosis. 7. Normocytic anemia. 8. Transient hypernatremia. 9. Acute kidney injury and acute renal failure (resolving). 10. Severe gait dysfunction, deconditioning and possible functional quadriplegia. 11. Hyperuricemia. 12. Transaminitis. 13. Hyperprocalcitoninemia. 14. Hypovitaminosis D. 15. Acute renal failure and acute kidney injury. 16. Escherichia coli urinary tract infection with hematuria, pyuria, bacteriuria. 17. Systemic inflammatory response syndrome with possible sepsis secondary to Escherichia coli urinary tract infection with ____vaginal and ____ fistula. 18. Prerenal azotemia. 19. Chronic kidney disease, stage, IIIB, nonproteinuric. 20. Severe deconditioning and gait dysfunction. 21. Chronic ____, ____ fistula with Escherichia coli urinary tract infection. 22. Moderate aortic and moderate mitral regurgitation. 23. Mild mitral valve prolapse, calcified aortic valve with mild aortic stenosis and moderate aortic regurgitation and moderate mitral regurgitation and mild tricuspid regurgitation with left ventricular ejection fraction of 55%. 24. Gait dysfunction. 25. Deconditioning 26. Anxiety disorder. 27. Dementia. 28. Hypovitaminosis D. 29. Hyperuricemia. 1. Acute renal failure. 2. Questionable sepsis with leukocytosis and granulocytosis. 3. Normocytic anemia. 4. Questionable hemorrhagic cystitis. 5. Questionable hemorrhagic cystitis with intrinsic mural and perivesicular abnormalities and dependent echogenic material debris in the bladder. 6. Left bundle-branch block and left axis deviation. 7. Left lower lung pleural thickening. 8. Cardiomegaly. 9. Sigmoid diverticulosis. 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 11. 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 12. Status post hysterectomy. 13. Sigmoid diverticulosis. 14. Leukocytosis with granulocytosis. 15. Normocytic anemia. 16. Hyponatremia. 17. Slow-resolving acute renal failure. 18. Hyperuricemia. 19. History of dementia. 20. Deconditioning. 21. Gait dysfunction. 22. Recurrent fall. 23. Questionable functional quadriplegia. 24. Hypovitaminosis D. 25. History of dyslipidemia. 26. History of angina, history of hypertension, history of dementia. 1. Altered mental status, etiology undetermined. 2. Acute renal failure and acute kidney injury and prerenal kidney injury. 3. Questionable and possible urinary tract infection. 4. Recurrent fall and gait dysfunction. 5. History of dementia. 6. Questionable swallowing and feeding dysfunction. 7. Leukocytosis with granulocytosis. 8. Normocytic anemia. 9. Hyperuricemia. 10. Hyperphosphatemia. 11. Transaminitis. 12. Elevated BNP with history of congestive heart failure. 13. Hematuria, pyuria, bacteriuria. 14. Left bundle branch block and left axis deviation. 15. Generalized osteopenia and thoracolumbar spondylosis with old healed left rib fracture. 16. Status post mastectomy for left breast carcinoma. 17. Gait dysfunction. 18. Recurrent falls. 19. 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 20. Questionable cystitis with thickened urinary bladder wall. 21. Questionable echogenic urinary bladder mass. 22. History of dementia. 23. History of hypovitaminosis D, history of anxiety, history of dementia, history of congestive heart failure, history of angina, history of dementia. 24. History of colovesicular and colovaginal fistula. 1. questionable atrial fibrillation with rapid ventricular response. 2. Left anterior hemiblock. 3. Hypertensive cardiovascular disease. 4. Questionable lateral ischemic changes. 1. Asymptomatic intermittent nonsustained ventricular tachycardia. 2. Volume overload. 3. History of dementia, history of depression, history of anxiety, history of Parkinson's disease. 4. Hypovitaminosis D. 5. Hypokalemia. 6. Acute kidney injury. PLAN: At this time, patient is to have serial labs. CURRENT MEDICATIONS: Ativan 0.5 mg twice a day, Cardizem 30 mg 3 times a day, D5W at 50 mL an hour, doxycycline 100 mg p.o. q. 12, Exelon 4.5 mg twice a day, Klonopin 4 mg at bedtime, Lasix 20 mg IV q. 12, meropenem 1 g IV q. 12, Protonix 40 mg IV daily, Requip 8 mg daily, Tenormin 12.5 twice a day, verapamil 2.5 IV q. 6 hours p.r.n., vitamin D3 2000 International Units daily, Xopenex 0.63 mg nebulizer every 6 hours. The patient is on BiPAP. The patient has been ordered out of bed, ADRIANO stockings , SCDs, physical therapy, occupational therapy. The patient's further dialysis treatment will be dependent upon the recommendation by nephrology. The patient's condition overall is guarded to poor prognosis, decompensated state. Discussed with the patient's son and the at length and all questions and concerns answered. Dictated and electronically signed, not read. Rigo Vargas MD cc: [id number] TT: 11/22/2016 10:40:49 Confirmation # [id number] Dictation # [id number] angela GUEVARA
--- NOTE | 2016-11-22 12:01 | PN ---
DATE: 11/22/2016 REASON FOR CONSULTATION AND FOLLOWUP: ____ multiple episodes of tachybrady syndrome, multiple pauses , status post permanent pacemaker, status post pneumo. 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 Initially, patient is a DNR/DNI, but the family wanted to have pacemaker. Pacemaker was placed. Si ngle chamber pacemaker complicated by 10% pneumo, status post chest tube. At one point, the patient wanted to make hospice care, now the patient reverted her mind and had one round of dialysis. Now jacek coronel is much awake and alert. The patient denies any chest pain, shortness of breath, any palpitati on. Chest tube is in place. PHYSICAL EXAMINATION: VITAL SIGNS: Temperature afebrile, heart rate 60, blood pressure 90/43. HEENT: PERRLA. Extraocular muscles intact. NECK: Supple. No carotid bruits. No thyromegaly. CHEST: Clear to auscultation. HEART: S1, S2 regular. ABDOMEN: Soft. EXTREMITIES: Clubbing and cyanosis negative. LABORATORY DATA: WBC 13.3, hemoglobin 11.8, hematocrit 37.9, platelet count 156. Chemistry shows so dium 140, potassium 4.5, chloride 114, carbon dioxide 19, anion gap of 14, BUN 67, creatinine 2.3. IMPRESSION: Acute kidney injury, chronic renal insufficiency, multiple episodes of asystole, sick si nus syndrome, tachybrady syndrome, status post permanent pacemaker, status post pneumo improved after the chest tube, renal failure, severe kyphoscoliosis, aortic stenosis, colovesical fistula, colovagi nal fistula, status post loop colostomy. RECOMMENDATION: Continue current treatment. Continue atenolol for fast heart rate or patient ____ c ritical. Prognosis is extremely grim. Possibly family is in denial. Discuss this morning again wit h the son and . Will follow with you. Thank you, Dr. Vargas for the opportunity in taking care of this patient. Bishop Jose MD cc: [id number] TT: 11/22/2016 12:00:41 Confirmation # [id number] Dictation # [id number] jn
--- NOTE | 2016-11-22 17:51 | CP.PCM.PN ---
Subjective - Date & Time of Evaluation Date of Evaluation: 11/22/16 Time of Evaluation: 09:30 - Subjective Subjective: Patient reports feeling well; denies sob; tolerating diet per family; Objective - Vital Signs/Intake and Output Vital Signs (last 24 hours): Temp Pulse Resp BP Pulse Ox 97.4 F L 71 18 107/45 L 99 11/22/16 16:00 11/22/16 16:00 11/22/16 16:00 11/22/16 17:21 11/22/16 16:00 Intake and Output: 11/22/16 11/22/16 06:59 18:59 Intake Total 1820 Output Total 1750 Balance 70 - Medications Medications: Current Medications Atenolol (Tenormin) 12.5 mg PO BID [facility] Last Admin: 11/22/16 17:21 Dose: Not Given Cholecalciferol (Vitamin D) 2,000 iu PO DAILY [facility] Last Admin: 11/22/16 10:28 Dose: 2,000 iu Clonazepam (Klonopin) 4 mg PO HS [facility] PRN Reason: Protocol Last Admin: 11/18/16 22:21 Dose: Not Given Diltiazem HCl (Cardizem) 30 mg PO TID [facility] Last Admin: 11/22/16 17:20 Dose: Not Given Doxycycline Hyclate (Doryx) 100 mg PO Q12 [facility] PRN Reason: Protocol Stop: 11/30/16 22:01 Last Admin: 11/22/16 10:28 Dose: 100 mg Furosemide (Lasix) 20 mg IVP Q12H [facility] Last Admin: 11/22/16 10:30 Dose: Not Given Home Med (Home Med) 1 unit PO DAILY [facility] Last Admin: 11/22/16 10:27 Dose: 1 unit Dextrose (Dextrose 5% In Water 1000 Ml) 1,000 mls @ 50 mls/hr IV .Q20H [facility] Last Admin: 11/22/16 15:39 Dose: 50 mls/hr Meropenem 1g/NS 100mL IVPB (Meropenem 1g/Ns 100ml Ivpb) 1 gm in 100 mls @ 100 mls/hr IVPB Q12 [facility] PRN Reason: Protocol Stop: 11/26/16 22:01 Last Admin: 11/22/16 10:27 Dose: 100 mls/hr Levalbuterol HCl (Xopenex) 0.63 mg IH [id number] [facility] Last Admin: 11/22/16 13:32 Dose: 0.63 mg Lorazepam (Ativan) 0.5 mg PO BID [facility] PRN Reason: Protocol Last Admin: 11/19/16 17:32 Dose: Not Given Pantoprazole Sodium (Protonix Inj) 40 mg IVP DAILY [facility] Last Admin: 11/22/16 10:27 Dose: 40 mg Rivastigmine (Exelon Cap) 4.5 mg PO 0800,1800 [facility] Last Admin: 11/22/16 17:21 Dose: 4.5 mg Ropinirole HCl (Requip) 8 mg PO 0800 [facility] Last Admin: 11/22/16 10:28 Dose: 8 mg Verapamil HCl (Verapamil Inj) 2.5 mg IVP Q6H [facility] PRN Reason: for Heart rate >130 - Labs Labs: 11/22/16 09:02 11/22/16 09:02 PT 12.0 Seconds (9.9-11.8) H 11/22/16 09:02 INR 1.11 (0.93-1.08) H 11/22/16 09:02 APTT 28.4 Seconds (23.7-30.8) 11/22/16 09:02 - Constitutional Appears: Non-toxic, No Acute Distress - Head Exam Head Exam: NORMAL INSPECTION - Eye Exam Eye Exam: absent: Conjunctival injection, Scleral icterus - ENT Exam ENT Exam: Mucous Membranes Moist - Respiratory Exam Respiratory Exam: Rales, NORMAL BREATHING PATTERN. absent: Rhonchi, Wheezes Additional comments: Decreased breath sounds at bases - Cardiovascular Exam Cardiovascular Exam: RRR Additional comments: systolic murmur present - GI/Abdominal Exam GI & Abdominal Exam: Soft. absent: Distended, Tenderness Additional comments: liquid stool in ostomy bag; - Extremities Exam Additional comments: bilateral leg edema - Neurological Exam Neurological Exam: Alert, Awake Additional comments: follows commands - Psychiatric Exam Psychiatric exam: Normal Affect, Normal Mood - Skin Skin Exam: Normal Color, Warm Assessment and Plan (1) Acute renal failure Assessment & Plan: MARCIANO on CKD; oliguric renal failure; s/p 1 session HD 2 days ago; serum creatinine improved since yesterday although still somewhat oliguric; borderline hypotensive; were planning another HD session but will hold off as this may drop BP further and patient showing signs of renal recovery; -stop diuretics; start NS at 60 cc/hr Status: Acute (2) Hypotension Assessment & Plan: Etiology unclear; sepsis v cardiac etiology with intermittent Afib; re-started on atenolol with cardizem added subsequently, however, patient not receiving meds consistently due to hypotension; heart rate has been controlled spontaneously for the most part; -need to maintain MAP > 65 to avoid further renal insult -consider digoxin for Afib, will discuss with cardiology Status: Acute (3) Sepsis Assessment & Plan: Secondary to UTI from rectovesical fistula as well as possible PNA; on meropenem and doxycycline; received dose of Dapto for VRE 2 days ago; clinically improvement likely attributable to abx escalation; -consider q24h dosing of meropenem for advanced renal failure Status: Acute (4) CHF (congestive heart failure) Assessment & Plan: Lungs relatively clear despite pleural effusions that are partly due to third spacing; does have marked edema which may be indicative of right sided overload ; nevertheless, will give IVF to help maintain MAP; Status: Chronic
--- NOTE | 2016-11-22 18:28 | RAD ---
HISTORY: comparison COMPARISON: No prior. FINDINGS: LUNGS: Pulmonary vascular congestive changes with bilateral lower lobe alveolar-type infiltrates and bilateral effusions. Re- demonstrated is radiopaque tubing over the left medial narciso thorax and at extending to the region of the left lung apex. Clinic correlation recommended. PLEURA: As above. No pneumothorax apparent. CARDIOVASCULAR: Cardiomegaly. No change single lead pacemaker. OSSEOUS STRUCTURES: No significant abnormalities. VISUALIZED UPPER ABDOMEN: Normal. OTHER FINDINGS: Left axillary metallic surgical clips. IMPRESSION: Pulmonary vascular congestive changes with bilateral lower lobe alveolar-type infiltrates and bilateral effusions. Re- demonstrated is radiopaque tubing over the left medial narciso thorax and at extending to the region of the left lung apex. Clinic correlation recommended.
--- NOTE | 2016-11-22 18:48 | CP.PCM.PN ---
Subjective - Date & Time of Evaluation Date of Evaluation: 11/22/16 Time of Evaluation: 18:46 - Subjective Subjective: Surgery: Dr. Alfredo Pt seen and examined. Resting comfortably in bed. Pain controlled. No SOB. Limited PO intake. No N/V. Objective - Vital Signs/Intake and Output Vital Signs (last 24 hours): Temp Pulse Resp BP Pulse Ox 97.4 F L 71 18 107/45 L 99 11/22/16 16:00 11/22/16 16:00 11/22/16 16:00 11/22/16 17:21 11/22/16 16:00 Intake and Output: 11/22/16 11/22/16 06:59 18:59 Intake Total 1820 Output Total 1750 Balance 70 - Medications Medications: Current Medications Atenolol (Tenormin) 12.5 mg PO BID [facility] Last Admin: 11/22/16 17:21 Dose: Not Given Cholecalciferol (Vitamin D) 2,000 iu PO DAILY [facility] Last Admin: 11/22/16 10:28 Dose: 2,000 iu Clonazepam (Klonopin) 4 mg PO HS [facility] PRN Reason: Protocol Last Admin: 11/18/16 22:21 Dose: Not Given Diltiazem HCl (Cardizem) 30 mg PO TID [facility] Last Admin: 11/22/16 17:20 Dose: Not Given Doxycycline Hyclate (Doryx) 100 mg PO Q12 [facility] PRN Reason: Protocol Stop: 11/30/16 22:01 Last Admin: 11/22/16 10:28 Dose: 100 mg Furosemide (Lasix) 20 mg IVP Q12H [facility] Last Admin: 11/22/16 10:30 Dose: Not Given Home Med (Home Med) 1 unit PO DAILY [facility] Last Admin: 11/22/16 10:27 Dose: 1 unit Dextrose (Dextrose 5% In Water 1000 Ml) 1,000 mls @ 50 mls/hr IV .Q20H [facility] Last Admin: 11/22/16 15:39 Dose: 50 mls/hr Meropenem 1g/NS 100mL IVPB (Meropenem 1g/Ns 100ml Ivpb) 1 gm in 100 mls @ 100 mls/hr IVPB Q12 [facility] PRN Reason: Protocol Stop: 11/26/16 22:01 Last Admin: 11/22/16 10:27 Dose: 100 mls/hr Levalbuterol HCl (Xopenex) 0.63 mg IH [id number] [facility] Last Admin: 11/22/16 13:32 Dose: 0.63 mg Lorazepam (Ativan) 0.5 mg PO BID [facility] PRN Reason: Protocol Last Admin: 11/19/16 17:32 Dose: Not Given Pantoprazole Sodium (Protonix Inj) 40 mg IVP DAILY [facility] Last Admin: 11/22/16 10:27 Dose: 40 mg Rivastigmine (Exelon Cap) 4.5 mg PO 0800,1800 [facility] Last Admin: 11/22/16 17:21 Dose: 4.5 mg Ropinirole HCl (Requip) 8 mg PO 0800 [facility] Last Admin: 11/22/16 10:28 Dose: 8 mg Verapamil HCl (Verapamil Inj) 2.5 mg IVP Q6H [facility] PRN Reason: for Heart rate >130 - Labs Labs: 11/22/16 09:02 11/22/16 09:02 PT 12.0 Seconds (9.9-11.8) H 11/22/16 09:02 INR 1.11 (0.93-1.08) H 11/22/16 09:02 APTT 28.4 Seconds (23.7-30.8) 11/22/16 09:02 - Constitutional Appears: No Acute Distress, Chronically Ill - Head Exam Head Exam: ATRAUMATIC, NORMOCEPHALIC - Eye Exam Eye Exam: EOMI. absent: Scleral icterus - ENT Exam ENT Exam: Mucous Membranes Moist - Neck Exam Neck Exam: Full ROM - Respiratory Exam Respiratory Exam: NORMAL BREATHING PATTERN. absent: Accessory Muscle Use, Respiratory Distress - GI/Abdominal Exam GI & Abdominal Exam: Soft. absent: Distended, Firm, Guarding, Rigid, Tenderness , Rebound Additional comments: stoma pink and patent w. liquid stool - Extremities Exam Extremities Exam: absent: Calf Tenderness, Pedal Edema - Neurological Exam Neurological Exam: Alert, Awake Assessment and Plan - Assessment and Plan (Free Text) Assessment: 81yo F with Rectal vesiculo fistula, Rectal vaginal fistula. s/p diverting loop colostomy on 11/14. complicated by symptomatic bradycardia requiring pacemaker placement and subsequent PTX requiring pleurocath placement -Will advance diet to FLD, ADAT -AM CXR stable -Pleurocath pulled -continue to monitor ostomy output -case d/w attending Alexandre PGY2
--- NOTE | 2016-11-22 20:34 | PN ---
DATE: 11/22/2016 The patient is in bed in no acute distress, nontoxic, was seen early this morning in 568, chronically ill. PHYSICAL EXAMINATION: VITAL SIGNS: Temperature of 97, blood pressure is 107/40, respiratory rate of 16. HEENT: Unremarkable. NECK: Supple. LUNGS: Have decreased breath sounds. HEART: Normal S1, S2. ABDOMEN: Soft, nontender. LABORATORY DATA: Reveals a white count of 13,600, hemoglobin of 11. Chemistries are noted. BUN of 67, creatinine of 2.3. Urinalysis is noted. Hepatitis serology is negative. Review of the orders reveals the patient to be on p.o. doxycycline and IV meropenem. The patient's p rocalcitonin is reported to be 2.48, although in face of a creatinine of 2.3. Dr. Glen Schroeder' note is reviewed. Dr. Wally Ash's note is reviewed. ASSESSMENT AND PLAN: This is an 81-year-old female with new onset of sepsis secondary to aspiration pneumonia, acute respiratory failure due to fluid overload, congestive heart failure, volume overload , acute on chronic renal injury, cardiac arrhythmia, atrial fibrillation, status post pacemaker place ment, development of left-sided pneumothorax, currently on day #8 of meropenem and doxycycline in thi s patient who initially had a rectovesical fistula and diverting loop colostomy on 11/14, which was co mplicated by symptomatic bradycardia requiring a pacemaker and a subsequent pneumothorax. We will ch sandra on the final culture results and follow the WBCs. Will most likely discontinue the antibiotics i n the next 24 hours. Austen Bradford MD cc: [phone] TT: 11/22/2016 20:32:54 Confirmation # [id number] Dictation # [id number] angela
[2016-11-22] MEDS ORDERED: Sodium Chloride 0.9% 1,000 ML IV SCH (22:45)
--- NOTE | 2016-11-23 00:14 | PCM.URO ---
Urology Progress Note - Objective Lab Results Last 24 Hours: Laboratory Results - last 24 hr 11/22/16 11/22/16 11/22/16 09:02 09:02 09:02 WBC 13.6 H D RBC 3.66 Hgb 11.5 L Hct 37.9 MCV 103.6 MCH 31.4 MCHC 30.3 L RDW 22.4 H Plt Count 156 MPV 10.5 Gran % 72.4 H Lymph % (Auto) 18.5 L [place] % (Auto) 8.4 H Eos % (Auto) 0.6 L Baso % (Auto) 0.1 Gran # 9.81 H Lymph # 2.5 [place] # 1.1 H Eos # 0.1 Baso # 0.01 PT 12.0 H INR 1.11 H APTT 28.4 Sodium 142 Potassium 4.5 Chloride 114 H Carbon Dioxide 19 L Anion Gap 14 BUN 67 H Creatinine 2.3 H Est GFR ( Amer) 25 Est GFR (Non-Af Amer) 20 Random Glucose 103 Calcium 7.9 L Magnesium 1.9 Total Bilirubin 0.8 Direct Bilirubin 0.7 H AST 32 ALT 46 Alkaline Phosphatase 193 H Total Protein 5.8 Albumin 2.5 L Globulin 3.3 Albumin/Globulin Ratio 0.8 L Intake & Output: Intake & Output 11/22/16 11/22/16 11/23/16 06:59 18:59 06:59 Intake Total 1820 420 Output Total 1750 400 Balance 70 20 Intake: IV 1500 left jugular 1500 Oral 320 420 Output: Urine 1150 200 Urethral (Ramirez) 850 200 Urine, Voided 300 Stool 600 200 Vital Signs: Vital Signs - 24 hr 11/22/16 11/22/16 11/22/16 07:30 10:30 10:31 Temperature 98.4 F Pulse Rate 63 Respiratory 18 Rate Blood Pressure 90/43 L 90/43 L 90/43 L O2 Sat by Pulse 100 Oximetry 11/22/16 11/22/16 11/22/16 15:39 16:00 17:20 Temperature 97.4 F L Pulse Rate 71 Respiratory 18 Rate Blood Pressure 93/60 L 107/45 L 107/45 L O2 Sat by Pulse 99 Oximetry 11/22/16 17:21 Temperature Pulse Rate Respiratory Rate Blood Pressure 107/45 L O2 Sat by Pulse Oximetry
[2016-11-23] MEDS: Levalbuterol 0.63 MG/3 ML Inhal Soln UD IH SCH ×4 (02:15→20:04)
[2016-11-23 07:34] VITALS: O2SAT 98
--- NOTE | 2016-11-23 08:15 | CP.PCM.PCO ---
Physician Communication Note - Physician Communication Note Physician Communication Note: Tiny PTX-Resolving without a new tube/Prognosis guarded
[2016-11-23 09:32] LABS: ADD MANUAL DIFF? NO
[2016-11-23 09:40] LABS: EOS % 0.2 % (1.5-5.0); GRAN # 13.99 (1.4-6.5); GRAN % 82.1 % (50.0-68.0); HEMATOCRIT 34.4 % (36.0-48.0); LYMPH % 11.8 % (22.0-35.0); MEAN CELL VOLUME 100.9 fL (80.0-105.0); MEAN CORPUSCULAR HGB CONC 31.7 g/dl (31.0-37.0); MEAN PLATELET VOLUME 10.4 fl (7.0-11.0); MONO % 5.9 % (1.0-6.0); PLATELET COUNT 161 10^3/uL (120.0-450.0); RED CELL DISTRIBUTION WIDTH 21.6 % (11.5-14.5); WHITE BLOOD COUNT 17.1 10^3/ul (4.5-11.0)
[2016-11-23 09:47] LABS: INR 1.09 (0.93-1.08); PARTIAL THROMBOPLASTIN TIME 28.1 Seconds (23.7-30.8)
[2016-11-23 09:56] LABS: ALB/GLOB RATIO 0.8 (1.1-1.8); BILIRUBIN,DIRECT 0.7 mg/dL (0.0-0.4); BILIRUBIN,TOTAL 0.8 mg/dL (0.2-1.3); CALCIUM 7.9 mg/dL (8.4-10.5); MAGNESIUM 1.8 mg/dL (1.7-2.2); POTASSIUM 4.3 mmol/L (3.6-5.0); TOTAL PROTEIN 6.2 g/dL (5.8-8.3)
[2016-11-23] MEDS: Meropenem 1g/NS 100mL IVPB 1 GM/100 ML PIGGYBACK IVPB SCH (10:14)
[2016-11-23] MEDS: SELENIUM 200 MCG PO SCH (11:38)
--- NOTE | 2016-11-23 12:56 | PN ---
DATE: 11/23/2016 REASON FOR CONSULTATION AND FOLLOWUP: Multiple episodes of bradycardia, tachybrady syndrome, status post permanent pacemaker. BRIEF CLINICAL HISTORY: This is an 81-year-old female with a past medical history significant for se psis, recurrent, secondary to colovesical and colovaginal fistula, status post temporizing loop colos agnes, history of paroxysmal atrial fibrillation, tachybrady syndrome, multiple pauses, multiple asyst ole, status post permanent pacemaker, complicated by a 10% pneumo, status post chest tube, improved. Now, patient is awake, alert. Denies any chest pain, shortness of breath, any palpitation. Family a couple of times wanted to make hospice care, then reversed. Now patient is a DNR/DNI. PHYSICAL EXAMINATION: VITAL SIGNS: Temperature afebrile, heart rate 74, blood pressure /88. HEENT: PERRLA. Extraocular muscles intact. NECK: Supple. No carotid bruits. No thyromegaly. CHEST: Clear to auscultation. HEART: S1, S2 regular. ABDOMEN: Soft. EXTREMITIES: Clubbing, cyanosis negative. BLOOD WORKUP: WBC 17.1, hemoglobin 10.6, hematocrit 34.4, platelet count 161. Chemistry shows sodiu m 141, potassium 4.3, chloride 114, carbon dioxide 19, anion gap 12, BUN 16, creatinine 2. IMPRESSION: Acute kidney injury on chronic renal insufficiency, improving, status post dialysis, sic k sinus syndrome, tachybrady syndrome, multiple times asystolic before pacemaker, status post pacemak er, status post pneumo secondary to pacemaker, resolved pneumo, aortic stenosis, colovesical fistula, colovaginal fistula, sepsis, code status is Do Not Resuscitate/Do Not Intubate. Family reversed, wa nted to do hospice, now is Do Not Resuscitate/Do Not Intubate, mild residual pneumo noted on chest x- ray, but significantly improved, history of aortic stenosis, now patient is much awake and alert. RECOMMENDATION: Continue low-dose atenolol as blood pressure is tolerated because protected by pacem sandeep to prevent tachybrady syndrome. Will increase Tenormin to 12.5 b.i.d. Continue Cardizem 30 mg t.i.d., resume and increase nutritional support. Out of the bed to chair as tolerated. Physical the rapy. We will follow with you. Overall, patient's condition is critical. Usp prognosis is gua rded. We will follow with you. Bishop Jose MD cc: [phone] TT: 11/23/2016 12:55:51 Confirmation # [id number] Dictation # [id number] en
--- NOTE | 2016-11-23 14:52 | RAD ---
HISTORY: comparison, s/p pigtail removal COMPARISON: 11/22/2016 at 7:54 a.m. FINDINGS: LUNGS: Re- demonstrated are pulmonary vascular congestive changes slightly improved from prior study. Persistent bilateral lower lobe alveolar-type infiltrates and bilateral effusions slightly improved from prior study. PLEURA: No significant pleural effusion identified, no pneumothorax apparent. CARDIOVASCULAR: No change single lead pacemaker OSSEOUS STRUCTURES: No significant abnormalities. VISUALIZED UPPER ABDOMEN: Normal. OTHER FINDINGS: Metallic clips left axilla region unaltered IMPRESSION: Re- demonstrated are pulmonary vascular congestive changes slightly improved from prior study. Persistent bilateral lower lobe alveolar-type infiltrates and bilateral effusions slightly improved from prior study.
--- NOTE | 2016-11-23 15:21 | RAD ---
HISTORY: comparison COMPARISON: 11/22/2016 at 1928 hours FINDINGS: LUNGS: Pulmonary vascular congestive changes with bilateral lower lobe alveolar-type infiltrates and bilateral effusions. PLEURA: As above. Tiny left apical pneumothorax decreased from prior study Cardiomegaly. No change single lead pacemaker OSSEOUS STRUCTURES: No significant abnormalities. VISUALIZED UPPER ABDOMEN: Normal. OTHER FINDINGS: None. IMPRESSION: Pulmonary vascular congestion with bilateral lower lobe alveolar-type infiltrates and bilateral effusions. . Tiny left apical pneumothorax decreased in size from prior study. Note that Dr. Carrizales informed these findings at 3:12 p.m. with written down and read back verification.
--- NOTE | 2016-11-23 15:58 | PN ---
DATE: 11/23/2016 The patient is seen in room 568, bed 1. The patient's son and are at bedside. The patient is seen lying in the bed. The patient is completely alert , awake, responsive, is able to recognize me and the people around her. The patient's overnight nurse's notes were reviewed. The patient's Ramirez catheter needed flushes. The patient continued to have colostomy and a left upper chest pigtail catheter for chest tube. PHYSICAL EXAMINATION: VITAL SIGNS: T-max 98.4, heart rate 74, 71, 63, 65. Blood pressure 128/55, 107 /45, 107/45, 93/60, 90/43, 97/48. Respirations 22, O2 sat 98%. Intake/output: Yesterday intake 1500, output 1150. Today's intake 300, output 985. HEAD: Normocephalic, atraumatic. HEENT: Shows pinkish, pale conjunctivae, anicteric sclerae. No oropharyngeal lesion. CHEST: Kyphosis, positive left upper chest pacemaker and pigtail catheter chest tube noted. Positive kyphosis. Decreased breath sound at bases, occasional rhonchi upper lung walls anteriorly. CARDIOVASCULAR: Shows S1, S2, irregularly irregular rhythm with positive systolic murmur right second intercostal space, left sternal border, left second intercostal space. ABDOMEN: Protuberant, positive bowel sounds. Positive right-sided colostomy. GENITALIA: Female. Positive Ramirez catheter. EXTREMITIES: Shows positive SCDs, decreasing swelling and edema of the lower extremity. MUSCULOSKELETAL: Shows a body mass index greater than 27. NEUROLOGIC: Cranial nerves II-XII limited. GAIT: Could not be tested. The patient is lying in the bed and bedridden. MUSCULOSKELETAL: 27. PSYCHIATRIC: Positive for history of anxiety, depression, positive for depression, positive for Parkinson disease. Positive for dementia. DIAGNOSTICS: 11/23, WBC count is elevated at 17.1, hemoglobin and hematocrit 10.9 and 34.4, platelets 161, granulocytes 82% segs. PT, PTT is normal. Sodium 141, potassium 4.3, chloride 114, CO2 19, anion gap 12, BUN 66, creatinine 2.0, GFR 29, glucose 114, calcium 7.9, alk phos 178, albumin 2.7. Urine cultures from 11/21 negative. Blood cultures from 11/17, and are negative. The patient had a chest x-ray today, which shows positive left upper pacemaker, decreasing right effusion and Small left apical pneumothorax. The patient seen by smash piecer. Their recommendation noted. The patient seen by surgery, Dr. Alfredo. Seen by infectious disease. Their recommendations were noted. The patient seen by bindery machine feeder offbearer yesterday. Their recommendations were noted. No dialysis was done yesterday. IMPRESSION AND PLAN: 1. Acute renal failure, status post hemodialysis. 2. Severe sepsis with hyperprocalcitonemia. 3. Paroxysmal atrial fibrillation with rapid ventricular response and slow ventricular response with periods of asystole and pauses. 4. Status post left upper chest permanent pacemaker implant. 5. Post permanent pacemaker left apical pneumothorax. 6. Status post pigtail chest tube placement on the left side. 7. Severe gait dysfunction and deconditioning and possible functional quadriplegia. 8. Persistent refractory leukocytosis with granulocytosis and bandemia. 9. Normocytic anemia. 10. Hypoxemia. 11. Severe metabolic and severe respiratory acidosis. 12. Hypercarbic and hypercapnic respiratory failure. 13. Non-hemolyzed hyperkalemia. 14. Hypernatremia. 15. Acute renal failure and acute kidney injury. 16. Increased anion gap metabolic acidosis. 17. Hypocalcemia. 18. Transaminitis. 19. Hypoalbuminemia. 20. Secondary hyperparathyroidism with elevated intact PTH. 21. Hyperprocalcitonemia. 22. Vancomycin-resistant Enterococcus faecalis urinary tract infection with proteinuria, hematuria, pyuria, bacteriuria and funguria. 23. Diastolic congestive heart failure with pulmonary vascular congestion and bilateral lower lobe pneumonia, infiltrate and effusion. 24. Left anterior hemiblock and possible incomplete left bundle branch block. 25. 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 26. Status post hemodialysis x 1. 27. Severe deconditioning and gait dysfunction. 28. History of Parkinson disease, dementia, anxiety, depression. 29. Hypovitaminosis D. 1. Acute renal failure, status post hemodialysis via the right groin hemodialysis catheter. 2. Hypotension. 3. Paroxysmal atrial fibrillation. 4. Hypotension. 5. Leukocytosis with granulocytosis. 6. Bandemia with leukocytosis. 7. Severe metabolic acidosis and respiratory acidosis and hypercarbic, hypercapnic respiratory BiPAP-requiring respiratory failure. 8. 7. Non-hemolyzed hyperkalemia. 9. Transient hyponatremia. 10. Hyperphosphatemia. 11. Transaminitis. 12. Secondary hyperparathyroidism with elevated intact PTH. 13. Hypoalbuminemia. 14. Hyper-procalcitoninemia. 15. Proteinuria, hematuria, pyuria, bacteriuria, funguria. 16. Vancomycin-resistant Enterococcus faecium urinary tract infection. 17. Severe deconditioning and gait dysfunction. 18. Bilateral lower extremity venous stasis. 19. Status post loop colostomy. 20. Acute tubular necrosis secondary to hypotension. 21. Oliguric acute renal failure. 22. Non-hemolyzed hyperkalemia. 23. Possible diastolic congestive heart failure with volume overload and bilateral pleural effusion. 24. Hypercarbic hypercapnic respiratory failure. 25. Severe metabolic and respiratory acidosis. 26. Sepsis secondary to aspiration pneumonia. 27. Severe sepsis secondary to aspiration pneumonia and vancomycin-resistant Enterococcus urinary tract infection. 28. Atrial fibrillation. 29. Status post permanent pacemaker implant. 30. Post permanent pacemaker implant, left-sided apical pneumothorax. 31. Bilateral persistent pleural effusion and cardiomegaly. 32. Left anterior hemiblock and left bundle branch block. 1. Acute renal failure, status post hemodialysis times one via the right groin hemodialysis catheter placed. 2. Paroxysmal atrial fibrillation with rapid ventricular response and slow ventricular response. 3. Status post permanent pacemaker implant. 4. Acute tubular necrosis. 5. Non-hemolyzed hyperkalemia with increased anion gap metabolic acidosis and respiratory acidosis. 6. Post-pacemaker insertion, left apical pneumothorax. 7. Sepsis secondary to aspiration pneumonia with acute hypercapneic, hypercarbic BiPAP dependent respiratory failure. 8. Severe deconditioning and gait dysfunction. 9. Transient hypotension. 10. Leukocytosis with granulocytosis. 11. Bandemia. 12. Respiratory acidosis with hypercarbia and metabolic acidosis. 13. Hyper-procalcitoninemia. 14. Transaminitis with hyperbilirubinemia. 15. Hyponatremia. 16. Non-hemolyzed hyperkalemia. 17. Vancomycin-resistant Enterococcus faecalis urinary tract infection. 18. Left anterior hemiblock. 19. Incomplete left bundle branch block. 20. Acute renal failure with acute tubular necrosis. 21. Cardiomegaly. 22. Moderate bilateral pleural effusion with congestive heart failure. 23. Cardiomegaly. 24. Sick sinus syndrome. 25. Atrial fibrillation with rapid ventricular response and slow ventricular response with multiple pauses and asystole. 1. Acute renal failure, status post hemodialysis x 1 via the right groin hemodialysis catheter. 2. Paroxysmal atrial fibrillation, status post permanent pacemaker implant. 3. Acute tubular necrosis. 4. Non-hemolyzed hyperkalemia with increased anion gap metabolic acidosis and respiratory acidosis. 5. Hypercapnic hypercarbic respiratory failure, bilevel positive airway pressure dependent. 6. Respiratory acidosis with hypercarbia. 7. Metabolic encephalopathy. 8. Sepsis secondary to aspiration pneumonia with acute hypercapneic hypercarbic bilevel positive airway pressure-dependent respiratory failure. 9. Volume overload with diastolic congestive heart failure. 10. Paroxysmal atrial fibrillation with rapid and slow ventricular response with multiple long pauses. 11. Post pacemaker implant, left apical pneumothorax, status post pigtail chest tube placement. 12. Severe deconditioning and gait dysfunction. 13. Multisystem organ failure. 14. Possible hypovolemic hypotensive shock with hypoxemia. 15. Persistent leukocytosis with granulocytosis and bandemia. 16. Severe increased anion gap metabolic acidosis with respiratory acidosis. 17. Non-hemolyzed hyperkalemia. 18. Transaminitis. 19. Hypoalbuminemia. 20. Hyperprocalcitoninemia. 21. Vancomycin-resistant Enterococcus faecium urinary tract infection. 22. Status post right groin hemodialysis catheter placement. 23. History of anxiety, history of dementia, history of Parkinson's disease, history of hypovitaminosis D. 1. Bilevel positive airway pressure dependent respiratory failure. 2. Status post single chamber pacemaker implant. 3. Sick sinus syndrome, paroxysmal atrial fibrillation, tachybrady syndrome with asystole and multiple pauses of more than 6 seconds. 4. Status post permanent pacemaker implant on the left upper chest. 5. Post-pacemaker implant, post-pacemaker implant, post-pacemaker implant, left apical pneumothorax. 6. Status post left-sided pigtail chest tube placement. 7. Severe kyphosis. 8. Thoracic spondylosis and osteopenia. 9. Paroxysmal atrial fibrillation with rapid ventricular response and slow ventricular response with pauses and period of asystole. 10. Cardiomegaly. 11. Encephalopathy with lethargy. 12. Diffuse cerebral cortical atrophy of the brain with ventricular prominence with small vessel chronic microvascular ischemic disease of the brain. 13. Left anterior hemiblock and left bundle branch block. 14. Vancomycin-resistant Enterococcus faecium urinary tract infection. 15. 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 16. Acute renal failure. 17. Hypercapnic respiratory failure. 18. Status post rapid response secondary to asystole and multiple long cardiac pauses. 19. Possible multisystem organ failure. 20. Severe deconditioning. 21. Hypercapnic respiratory failure with severe metabolic acidosis. 22. Non-hemolyzed hyperkalemia. 23. Acute kidney injury, acute renal failure. 24. Hyperprocalcitoninemia. 1. Status post rapid response. 2. Severe symptomatic bradycardia with cardiac pauses. 3. Possibly beta juan alberto, calcium channel juan alberto induced. 4. Atrial fibrillation with slow ventricular response and pauses. 5. Transient hypotension. 6. Metabolic acidosis. 7. Transient hypotension. 8. Atrial fibrillation with slow ventricular response and pauses and sinus bradycardia. 9. Leukocytosis with granulocytosis. 10. Thrombocytosis. 11. Atrial fibrillation. 12. Hypoxemia. 13. Transient metabolic acidosis. 14. Acute kidney injury with underlying chronic kidney disease stage III/IV. 15 Transaminitis. 16. Possible diastolic congestive heart failure with elevated BNP. 17. Enterococcus faecium urinary tract infection. 18. Bilateral lower lobe infiltrates, effusion and cardiomegaly with congestive heart failure. 19. Enterococcus faecium urinary tract infection. 20. Severe deconditioning and gait dysfunction and possibly functional quadriplegia. 21. Bilateral pleural effusion and cardiomegaly. 22. Atrial fibrillation with slow ventricular response. 23. Sinus bradycardia with first degree AV block and left anterior hemiblock and left bundle branch block. 24. Cerebral cortical atrophy of the brain with ventricular prominence. 25. Chronic microvascular ischemic disease of the brain. 26. 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 27. Status post loop colostomy, postop day #4. 28. Acute kidney injury with underlying chronic kidney disease stage III. 29. History of moderate aortic regurgitation, mild aortic stenosis, moderate mitral regurgitation, mild tricuspid regurgitation. 30. Status post diverting colostomy and loop colostomy. 31. Deconditioning. 32. Gait dysfunction. 1. Volume overload versus questionable diastolic congestive heart failure with bilateral bibasilar infiltrates and effusion and cardiomegaly. 2. Atrial fibrillation. 3. History of hypertension. 4. Leukocytosis with granulocytosis. 5. Normocytic anemia. 6. Transient Hypernatremia. 7. Acute kidney injury with chronic kidney disease, stage III. 8. Hypocalcemia. 9. Hypoalbuminemia. 10. Sepsis. 11. Sepsis with urinary tract infection and colovesicular/colovaginal fistula. 12. Status post loop colostomy, postoperative day 3. 13. Gait dysfunction. 14. Deconditioning. 1. Sepsis, secondary to rectovaginal, rectovesical fistula with inadequate drainage of urine and stool,status post loop colostomy,postop day 2. 2. Questionable lethargy, etiology undetermined. 3. Paroxysmal atrial fibrillation. 4. Leukocytosis with granulocytosis. 5. Normocytic anemia. 6. Transient coagulopathy. 7. Hypernatremia. 8. Hypokalemia. 9. Acute kidney injury with underlying chronic kidney disease stage III with prerenal kidney injury. 10. Hypocalcemia. 11. Mild hypoalbuminemia. 12. Left bundle branch block, left anterior hemiblock 13. Status post loop colostomy, postop day 2. 14. Sepsis, secondary to colovesicular, colovaginal fistula. 15. Encephalopathy. 16. History of anxiety, history of dementia, history of Parkinson disease, history of depression, history of hypovitaminosis D. 1. 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 2. Status post loop colostomy. 3. 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 4. Atrial fibrillation with rapid ventricular response. 5. Left anterior hemiblock. 6. Left bundle branch block. 7. Transient hypotension and bradycardia. 8. Hypernatremia. 9. Acute kidney injury with underlying chronic kidney disease stage III/IV. 10. Indeterminate troponin. 11. Leukocytosis with granulocytosis. 12. Transient coagulopathy. 13. Hyponatremia. 14. Prerenal kidney injury. 15. Severe gait dysfunction and deconditioning. 16. Status post colostomy diversion. 17. Paroxysmal atrial fibrillation converting to normal sinus rhythm with left axis deviation, left anterior hemiblock, left bundle branch block. 18. Urinary retention. 19. History of dementia, Parkinson disease. 20. Transient confusional state. 21. Transient agitation (resolved). 22. Deconditioning. 23. Gait dysfunction. 24. Status post loop colostomy, postop day 1. 25. Deconditioning. 26. Gait dysfunction. 27. Questionable possible functional quadriplegia. 28. History of anxiety. 29. History of dementia. 30. History of Parkinson disease. 31. History of hypovitaminosis D. 1. Sepsis with leukocytosis and granulocytosis. 2. New onset atrial fibrillation with rapid ventricular response and indeterminate troponin. 3. Moderate aortic regurgitation, mild aortic stenosis, moderate mitral regurgitation with left ventricular ejection fraction of 55%. 4. Left anterior hemiblock. 5. Questionable left bundle branch block. 6. Lateral wall ischemic changes on the EKG. 7. Severe deconditioning, gait dysfunction versus questionable and possible functional quadriplegia. 8. Sepsis, secondary to rectovesical and rectovaginal fistula and inadequate drainage of urine and stool. 9. Status post treatment for Escherichia coli urinary tract infection, secondary to rectovesical, rectovaginal fistula. 10. Acute kidney injury. 11. Transient hypotension. 12. History of hypertension. 13. Anemia. 14. Leukocytosis. 15. Normocytic iron deficiency anemia. 16. Mild coagulopathy, secondary to anticoagulation. 17. Hypokalemia. 18. Acute kidney injury with underlying chronic kidney disease stage IV. 19. Hypoalbuminemia. 20. Indeterminate troponin. 21. Hypotension with sepsis and new onset atrial fibrillation with rapid ventricular response. 22. History of Parkinson disease, dementia, history of anxiety, depression, history of hypovitaminosis D. 1. Recurrent urinary retention with urinary bladder distention. 2. Questionable systemic inflammatory response syndrome versus sepsis with low- grade fever of 105, tachycardia 3. Leukocytosis with granulocytosis. 4. Normocytic anemia. 5. Hypokalemia. 6. Acute kidney injury. 7. Mild hypoalbuminemia 8. Severe deconditioning, gait dysfunction and bedridden status with questionable functional quadriplegia. 9. History of dementia, depression, Parkinson's disease, history of hypertension. 10. Hypovitaminosis D. 11. Deconditioning. 1. Recurrent urinary retention with urinary bladder distention. 2. Severe deconditioning and gait dysfunction. 3. Functional quadriplegia with severe deconditioning and gait dysfunction and bedridden status. 4. Small bilateral pleural effusion and bibasilar atelectasis. 5. Questionable sigmoid colitis with mural thickening. 6. Urinary retention with distended urinary bladder with air fluid level. 7. Hypertension. 8. Tachycardia. 9. Leukocytosis with granulocytosis. 10. Questionable systemic inflammatory response syndrome. 11. Normocytic anemia. 12. Acute recurrent kidney injury. 13. 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 14. Normocytic iron deficiency anemia. 15. Chronic kidney disease stage II/III. 1. Severe deconditioning, severe gait dysfunction and possible questionable functional quadriplegia. 2. Urinary retention. 3. Colovesicular and colovaginal fistula. 4. Abdominal distention, probably secondary to urinary retention. 5. Sepsis secondary to Escherichia coli urinary tract infection and colovesicular and colovaginal fistula. 6. Hypertension. 7. Questionable ileus with constipation, fecal retention, fecal stasis. 8. Asymptomatic hypoxemia. 9. Status post acute renal failure. 10. Normocytic iron deficiency anemia. 11. Status post IV Venofer infusion. 12. Leukocytosis with granulocytosis. 13. Status post acute renal failure. 14. Hypocalcemia. 15. Mild hypoalbuminemia. 16. History of anxiety disorder, history of dementia, history of depression, history of Parkinson's disease, hypovitaminosis D. 1. Severe deconditioning and gait dysfunction. 2. Deconditioning. 3. Questionable constipation and fecal retention. 4. Asymptomatic hypoxemia. 5. Leukocytosis with granulocytosis. 6. Normocytic anemia. 7. Prerenal kidney injury. 8. Status post acute renal failure. 9. 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 10. Deconditioning. 11. Gait dysfunction. 12. Sepsis secondary to Escherichia coli urinary tract infection. 13. History of colovesicular colovaginal fistula. 14. Dementia. 15. History of Parkinson disease. 16. History of anxiety disorder. 17. History of constipation. 1. Severe deconditioning and gait dysfunction. 2. Possible functional quadriplegia. 3. Nonproteinuric chronic kidney disease stage III. 4. Acute renal failure, secondary to prerenal kidney injury (resolved). 5. Mild venous stasis of the lower extremities. 6. Sepsis with Escherichia coli urinary tract infection. 7. Rectovesical and rectovaginal fistula. 8. Deconditioning. 9. Gait dysfunction. 10. Normocytic anemia. 11. Normocytic iron deficiency anemia. 12. Leukocytosis with granulocytosis. 13. Hypocalcemia. 14. Hypokalemia. 1. Severe gait dysfunction and deconditioning and possible functional quadriplegia. 2. Sepsis secondary to Escherichia coli urinary tract infection with history of rectovaginal, rectovesical fistula. 3. Escherichia coli urinary tract infection. 4. Acute renal failure. 5. Hypoxemia. 6. Normocytic anemia. 7. Leukocytosis with granulocytosis. 8. Status post acute renal failure. 9. Hypocalcemia. 10. Mild hypoalbuminemia. 11. History of dementia, Parkinson's disease, anxiety, and possible depression. 12. Prerenal kidney injury. 13. Non-proteinuric chronic kidney disease stage III. 14. History of anxiety. 15. History of dementia, history of depression, history of hypovitaminosis D. 1. Severe deconditioning and gait dysfunction and possible bedridden status and possible functional quadriplegia. 2. Sepsis secondary to a Escherichia coli urinary tract infection with history of vaginal and rectovesical fistula. 3. Deconditioning. 4. Escherichia coli urinary tract infection. 5. Acute renal failure. 6. History of hypertension. 7. Asymptomatic hypoxemia. 8. Kyphosis of the thoracic spine. 9. Hypoalbuminemia. 10. Hypocalcemia. 11. Normocytic anemia. 12. Hypokalemia. 13. Oropharyngeal dysphagia with impulsive and unsafe eating behaviors. 14. History of anxiety disorder. 15. History of dementia. 16. History of Parkinson disease. 17. History of normocytic iron deficiency anemia. 1. Severe gait dysfunction, deconditioning and bedridden status. 2. Questionable and possible functional quadriplegia. 3. Escherichia coli urinary tract infection. 4. Acute renal failure. 5. Systemic inflammatory response syndrome versus possible sepsis secondary to Escherichia coli urinary tract infection. 6. Colovesical and colovaginal fistula. 7. History of hypertension. 8. Asymptomatic hypoxemia. 9. Normocytic iron deficiency anemia. 10. Normal potassium. 11 Acute renal failure with mild prerenal kidney injury. 12. Non-proteinuric chronic kidney disease stage III/IV. 13. Hypocalcemia. 14. Hypoalbuminemia. 15. Malnutrition. 16. History of anxiety disorder. 17. History of dementia. 18. Iron deficiency normocytic anemia. 19. History of anxiety disorder. 20. Hypovitaminosis D. 21. Hyperuricemia. 22. Deconditioning. 1. Acute renal failure. 2. Systemic inflammatory response syndrome versus possible sepsis secondary to Escherichia coli urinary tract infection. 3. Colovesicular and colovaginal fistula. 4. Acute renal failure. 5. Poor compliance. 6. Severe gait deconditioning and severe gait dysfunction and bedridden status. 7. Functional quadriplegia. 8. Transient asymptomatic hypoxemia. 9. Leukocytosis with granulocytosis. 10. Normocytic iron deficiency anemia. 11. Transient hypernatremia. 12. Acute renal failure. 13. Hyperuricemia. 14. Transaminitis. 15. . 16. Hyperuricemia. 17. Iron deficiency normocytic anemia. 18. Escherichia coli urinary tract infection with proteinuria, hematuria, bacteriuria and pyuria. 19. Sepsis secondary to Escherichia coli urinary tract infection. 20. Mild aortic stenosis. 21. Moderate aortic regurgitation, moderate mitral regurgitation and mild tricuspid regurgitation. 22. History of anxiety disorder, history of dementia, history of hypovitaminosis D and hyperuricemia. 1. Acute renal failure. 2. Questionable sepsis with leukocytosis, granulocytosis. 3. Normocytic anemia. 4. Hypertension. 5. History of dementia. 6. Leukocytosis with granulocytosis. 7. Normocytic anemia. 8. Transient hypernatremia. 9. Acute kidney injury and acute renal failure (resolving). 10. Severe gait dysfunction, deconditioning and possible functional quadriplegia. 11. Hyperuricemia. 12. Transaminitis. 13. Hyperprocalcitoninemia. 14. Hypovitaminosis D. 15. Acute renal failure and acute kidney injury. 16. Escherichia coli urinary tract infection with hematuria, pyuria, bacteriuria. 17. Systemic inflammatory response syndrome with possible sepsis secondary to Escherichia coli urinary tract infection with ____vaginal and ____ fistula. 18. Prerenal azotemia. 19. Chronic kidney disease, stage, IIIB, nonproteinuric. 20. Severe deconditioning and gait dysfunction. 21. Chronic ____, ____ fistula with Escherichia coli urinary tract infection. 22. Moderate aortic and moderate mitral regurgitation. 23. Mild mitral valve prolapse, calcified aortic valve with mild aortic stenosis and moderate aortic regurgitation and moderate mitral regurgitation and mild tricuspid regurgitation with left ventricular ejection fraction of 55%. 24. Gait dysfunction. 25. Deconditioning 26. Anxiety disorder. 27. Dementia. 28. Hypovitaminosis D. 29. Hyperuricemia. 1. Acute renal failure. 2. Questionable sepsis with leukocytosis and granulocytosis. 3. Normocytic anemia. 4. Questionable hemorrhagic cystitis. 5. Questionable hemorrhagic cystitis with intrinsic mural and perivesicular abnormalities and dependent echogenic material debris in the bladder. 6. Left bundle-branch block and left axis deviation. 7. Left lower lung pleural thickening. 8. Cardiomegaly. 9. Sigmoid diverticulosis. 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 11. 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 12. Status post hysterectomy. 13. Sigmoid diverticulosis. 14. Leukocytosis with granulocytosis. 15. Normocytic anemia. 16. Hyponatremia. 17. Slow-resolving acute renal failure. 18. Hyperuricemia. 19. History of dementia. 20. Deconditioning. 21. Gait dysfunction. 22. Recurrent fall. 23. Questionable functional quadriplegia. 24. Hypovitaminosis D. 25. History of dyslipidemia. 26. History of angina, history of hypertension, history of dementia. 1. Altered mental status, etiology undetermined. 2. Acute renal failure and acute kidney injury and prerenal kidney injury. 3. Questionable and possible urinary tract infection. 4. Recurrent fall and gait dysfunction. 5. History of dementia. 6. Questionable swallowing and feeding dysfunction. 7. Leukocytosis with granulocytosis. 8. Normocytic anemia. 9. Hyperuricemia. 10. Hyperphosphatemia. 11. Transaminitis. 12. Elevated BNP with history of congestive heart failure. 13. Hematuria, pyuria, bacteriuria. 14. Left bundle branch block and left axis deviation. 15. Generalized osteopenia and thoracolumbar spondylosis with old healed left rib fracture. 16. Status post mastectomy for left breast carcinoma. 17. Gait dysfunction. 18. Recurrent falls. 19. 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 20. Questionable cystitis with thickened urinary bladder wall. 21. Questionable echogenic urinary bladder mass. 22. History of dementia. 23. History of hypovitaminosis D, history of anxiety, history of dementia, history of congestive heart failure, history of angina, history of dementia. 24. History of colovesicular and colovaginal fistula. 1. questionable atrial fibrillation with rapid ventricular response. 2. Left anterior hemiblock. 3. Hypertensive cardiovascular disease. 4. Questionable lateral ischemic changes. 1. Asymptomatic intermittent nonsustained ventricular tachycardia. 2. Volume overload. 3. History of dementia, history of depression, history of anxiety, history of Parkinson's disease. 4. Hypovitaminosis D. 5. Hypokalemia. 6. Acute kidney injury. PLAN: We are awaiting further recommendation from nephrology regarding further hemodialysis if needed. The patient's infectious disease recommendations were noted. Cardiology recommendations were noted. CURRENT MEDICATIONS: 1. Ativan 0.5 mg twice a day. 2. Cardizem 30 mg 3 times a day. 3. Doxycycline 100 mg p.o. q. 12. 4. Exelon capsule 4.5 mg twice a day. 5. Selenium 200 mcg p.o. daily. 6. Klonopin 4 mg at bedtime. 7. Meropenem 1 gram IV q. 12. 8. Protonix 40 mg IV daily. 9. Requip 8 mg daily. 10. Tenormin 12.5 mg twice a day. 11. verapamil 2.5 mg IV q. 6 p.r.n. 12. Vitamin D3 2000 units daily. 13. Xopenex 0.63 mg nebulizer treatment every 6 hours. The patient has been on BiPAP as needed. The patient is ordered SCDs, ADRIANO stockings, out of bed. The patient is ordered occupational therapy, physical therapy. In addition, patient will be ordered Bactroban cream to the nose bridge area where patient developed abrasion because of BiPAP mask. At this time, patient's further management is dependent upon the patient's clinical condition, hemodynamic status, and as per patient's response to therapeutic intervention, as per recommendation by all the consultants and physicians involved in the care of the patient. The patient's overall guarded to poor prognosis, deconditioned state and multiple complicated medical problems and issues discussed and explained to the patient's son and the at length and all questions and concerns answered to their satisfaction. Dictated and electronically signed, not read. Rigo Vargas MD cc: [phone] TT: 11/23/2016 15:57:56 Confirmation # [id number] Dictation # [id number] en MTDD
--- NOTE | 2016-11-23 16:04 | CP.PCM.PN ---
Subjective - Date & Time of Evaluation Date of Evaluation: 11/23/16 Time of Evaluation: 15:30 - Subjective Subjective: As per orders of Dr Ash,Dialysis catheter was removed from the R groin . Sterile dressing and local pressure applied to the site. Objective - Vital Signs/Intake and Output Vital Signs (last 24 hours): Temp Pulse Resp BP Pulse Ox 98.4 F 74 22 128/55 L 98 11/23/16 07:30 11/23/16 10:16 11/23/16 07:30 11/23/16 10:16 11/23/16 07:30 Intake and Output: 11/23/16 11/23/16 06:59 18:59 Intake Total 420 300 Output Total 400 985 Balance 20 -685 - Medications Medications: Current Medications Atenolol (Tenormin) 12.5 mg PO BID [facility] Last Admin: 11/23/16 10:16 Dose: 12.5 mg Cholecalciferol (Vitamin D) 2,000 iu PO DAILY [facility] Last Admin: 11/23/16 10:14 Dose: 2,000 iu Clonazepam (Klonopin) 4 mg PO HS [facility] PRN Reason: Protocol Last Admin: 11/18/16 22:21 Dose: Not Given Diltiazem HCl (Cardizem) 30 mg PO TID [facility] Last Admin: 11/23/16 10:03 Dose: Not Given Doxycycline Hyclate (Doryx) 100 mg PO Q12 [facility] PRN Reason: Protocol Stop: 11/30/16 22:01 Last Admin: 11/23/16 10:14 Dose: 100 mg Home Med (Home Med) 1 unit PO DAILY [facility] Last Admin: 11/23/16 11:38 Dose: 1 unit Meropenem 1g/NS 100mL IVPB (Meropenem 1g/Ns 100ml Ivpb) 1 gm in 100 mls @ 100 mls/hr IVPB Q12 [facility] PRN Reason: Protocol Stop: 11/26/16 22:01 Last Admin: 11/23/16 10:14 Dose: 100 mls/hr Levalbuterol HCl (Xopenex) 0.63 mg IH [id number] [facility] Last Admin: 11/23/16 13:41 Dose: 0.63 mg Lorazepam (Ativan) 0.5 mg PO BID [facility] PRN Reason: Protocol Last Admin: 11/19/16 17:32 Dose: Not Given Mupirocin (Bactroban Ointment) 0 gm TOP TID [facility] Pantoprazole Sodium (Protonix Inj) 40 mg IVP DAILY [facility] Last Admin: 11/23/16 10:16 Dose: 40 mg Rivastigmine (Exelon Cap) 4.5 mg PO 0800,1800 [facility] Last Admin: 11/23/16 09:11 Dose: 4.5 mg Ropinirole HCl (Requip) 8 mg PO 0800 [facility] Last Admin: 11/23/16 09:11 Dose: 8 mg Verapamil HCl (Verapamil Inj) 2.5 mg IVP Q6H PRN PRN Reason: for Heart rate >130 - Labs Labs: 11/23/16 09:00 11/23/16 09:00 PT 11.8 Seconds (9.9-11.8) 11/23/16 09:00 INR 1.09 (0.93-1.08) H 11/23/16 09:00 APTT 28.1 Seconds (23.7-30.8) 11/23/16 09:00
--- NOTE | 2016-11-23 17:38 | PN ---
DATE: 11/23/2016 SUBJECTIVE: The patient was seen earlier this morning in 568. The patient is with no fevers and no chills. PHYSICAL EXAMINATION: VITAL SIGNS: Temperature is 98, blood pressure is 120/50, respiratory rate of 16. HEENT: Unremarkable. NECK: Supple. LUNGS: Have decreased breath sounds. HEART: Normal S1, S2. ABDOMEN: Soft. LABORATORY DATA: Reveals a white count of 17,000, hemoglobin of 10, platelets of 161. BUN of 66 and creatinine of 2.0. Urinalysis is noted. Microbiology reveals the urine culture to be negative. Th e blood cultures are negative. ASSESSMENT AND PLAN: This is an 81-year-old female who was seen earlier this morning with a new onse t of sepsis secondary to aspiration pneumonia, acute respiratory failure, fluid overload, congestive heart failure, volume overload, [id number] renal injury, cardiac arrhythmia, atrial fibrillatio n, status post pacemaker placement, development of left-sided pneumothorax, on day #9 of meropenem an d doxycycline. Will discontinue the antibiotics after day #9 of antibiotics, will discontinue both a ntibiotics. The patient's hepatitis profile is negative. White count was up to 17,100. Consider a hospice setting for this patient. Dr. Vargas's note is reviewed. Dr. Jose's note is reviewed. The p atient had a chest x-ray earlier. Will discontinue the antibiotics after 9 days and follow the WBC c ount. Overall prognosis still quite poor. Austen Bradfrod MD cc: [phone] TT: 11/23/2016 17:37:18 Confirmation # [id number] Dictation # [id number] dn
--- NOTE | 2016-11-23 23:32 | CP.PCM.PN ---
Subjective - Date & Time of Evaluation Date of Evaluation: 11/23/16 Time of Evaluation: 09:45 - Subjective Subjective: Patient reports feeling well; denies sob; tolerating diet; Objective - Vital Signs/Intake and Output Vital Signs (last 24 hours): Temp Pulse Resp BP Pulse Ox 98 F 76 22 113/53 L 98 11/23/16 16:00 11/23/16 23:21 11/23/16 16:00 11/23/16 18:17 11/23/16 16:00 Intake and Output: 11/23/16 11/24/16 18:59 06:59 Intake Total 300 Output Total 985 Balance -685 - Medications Medications: Current Medications Atenolol (Tenormin) 12.5 mg PO BID [facility] Last Admin: 11/23/16 18:17 Dose: 12.5 mg Cholecalciferol (Vitamin D) 2,000 iu PO DAILY [facility] Last Admin: 11/23/16 10:14 Dose: 2,000 iu Clonazepam (Klonopin) 4 mg PO HS [facility] PRN Reason: Protocol Last Admin: 11/18/16 22:21 Dose: Not Given Diltiazem HCl (Cardizem) 30 mg PO TID [facility] Last Admin: 11/23/16 10:03 Dose: Not Given Home Med (Home Med) 1 unit PO DAILY [facility] Last Admin: 11/23/16 11:38 Dose: 1 unit Levalbuterol HCl (Xopenex) 0.63 mg IH [id number] [facility] Last Admin: 11/23/16 20:04 Dose: 0.63 mg Lorazepam (Ativan) 0.5 mg PO BID [facility] PRN Reason: Protocol Last Admin: 11/19/16 17:32 Dose: Not Given Mupirocin (Bactroban Ointment) 0 gm TOP TID [facility] Last Admin: 11/23/16 18:18 Dose: Not Given Pantoprazole Sodium (Protonix Inj) 40 mg IVP DAILY [facility] Last Admin: 11/23/16 10:16 Dose: 40 mg Rivastigmine (Exelon Cap) 4.5 mg PO 0800,1800 [facility] Last Admin: 11/23/16 18:16 Dose: 4.5 mg Ropinirole HCl (Requip) 8 mg PO 0800 [facility] Last Admin: 11/23/16 09:11 Dose: 8 mg Verapamil HCl (Verapamil Inj) 2.5 mg IVP Q6H PRN PRN Reason: for Heart rate >130 - Labs Labs: 11/23/16 09:00 11/23/16 09:00 PT 11.8 Seconds (9.9-11.8) 11/23/16 09:00 INR 1.09 (0.93-1.08) H 11/23/16 09:00 APTT 28.1 Seconds (23.7-30.8) 11/23/16 09:00 - Constitutional Appears: Well, No Acute Distress - Head Exam Head Exam: NORMAL INSPECTION - Eye Exam Eye Exam: Normal appearance. absent: Scleral icterus - ENT Exam ENT Exam: Mucous Membranes Moist - Respiratory Exam Respiratory Exam: Clear to Ausculation Bilateral Additional comments: Decreased breath sounds at bases; - Cardiovascular Exam Cardiovascular Exam: REGULAR RHYTHM Additional comments: systolic murmur present; - GI/Abdominal Exam GI & Abdominal Exam: Soft. absent: Distended, Tenderness - Exam Exam: absent: Bladder Distension - Extremities Exam Additional comments: Moderately edematous legs bilaterally; - Neurological Exam Neurological Exam: Alert, Awake, Oriented x3 - Psychiatric Exam Psychiatric exam: Normal Affect, Normal Mood - Skin Skin Exam: Normal Color, Warm Assessment and Plan (1) Acute renal failure Assessment & Plan: MARCIANO on CKD; ATN but also with post-renal obstructive component secondary to intermittent power obstruction; renal function improving over past 2 days after 1 session of HD; volume excess on exam, stable lytes; no indication for HD; -d/c IVF -maintain MAP > 65 Status: Acute (2) Hypotension Assessment & Plan: Improved; seen in the setting of sepsis as well as tachy-mai syndrome, now s/ p pacemaker; on cardizem and atenolol for afib rate control, however, not getting either due to low BP; nursing staff instructed to give the atenolol for now and will re-assess need for cardizem; Status: Acute (3) Sepsis Assessment & Plan: Patient with VRE in urine, otherwise blood cultures negative; showed marked clinical improvement after escalation of abx; ID today stopping abx after repeat urine culture negative; still with leukocytosis that is worsening; -discontinuing R femoral HD catheter and drawing blood cultures from line Status: Acute (4) CHF (congestive heart failure) Assessment & Plan: Recent echo prior to hospitalization showed improved EF; now with volume excess on exam; -will monitor BP and likely restart lasix soon (will hold off today as patient had urinary obstruction relieved and may have post-obstructive diuresis) Status: Chronic (5) Rectoureteral fistula Assessment & Plan: Still causing urinary obstruction of power with remnant fecal matter despite diverting colostomy; nursing staff instructed to flush power q4-6hrs (had ~400 cc urine right after flush today); Status: Acute
[2016-11-24] MEDS: Levalbuterol 0.63 MG/3 ML Inhal Soln UD IH SCH ×3 (01:27→15:01)
--- NOTE | 2016-11-24 07:01 | PN ---
DATE: 11/21/2016 See the many previously dictated consult notes and progress notes. The patient is currently resting comfortably. Children at the bedside. The most recent progress notes are noted. The patient is currently in a regular room. Resting comfortably. Urology was called. I was called at about 5:00 a.m. this morning to make recommendations regarding F oley catheter and CBI. See the plan listed below. The patient is currently resting comfortably. PHYSICAL EXAMINATION: ABDOMEN: Relatively soft. The urine is relatively clear. There is no pieces as previously noted. DIAGNOSES: Voiding dysfunction, history of fistula. From a urology standpoint, the plan is as follows: We would not at this point recommend a CBI draina ge per se. The catheter that is in place is draining well. Our recommendations would be for Ramirez irrigations. Then further plans can follow depending on how the patient is doing clinically. I discussed this at length with both sons and the patient. Resting comfortably. PLAN: Ramirez to straight drainage and irrigation p.r.n. Salo Acosta MD cc: [phone] TT: 11/24/2016 07:00:35 Confirmation # [id number] Dictation # [id number] william
[2016-11-24 07:46] VITALS: PULSE 69; RESP 18; TEMP 97.6
[2016-11-24 08:28] LABS: ADD MANUAL DIFF? NO
[2016-11-24 08:32] LABS: BASO # 0.01 K/mm3 (0.0-2.0); BASO % 0.1 % (0.0-3.0); EOS # 0.1 (0.0-0.7); EOS % 0.5 % (1.5-5.0); GRAN # 10.11 (1.4-6.5); GRAN % 76.8 % (50.0-68.0); HEMATOCRIT 35.6 % (36.0-48.0); LYMPH # 2.2 (1.2-3.4); LYMPH % 16.4 % (22.0-35.0); MEAN CORPUSCULAR HEMOGLOBIN 31.5 pg (25.0-35.0); MEAN CORPUSCULAR HGB CONC 31.5 g/dl (31.0-37.0); MONO # 0.8 (0.1-0.6); MONO % 6.2 % (1.0-6.0); PLATELET COUNT 176 10^3/uL (120.0-450.0); RED CELL DISTRIBUTION WIDTH 21.5 % (11.5-14.5); WHITE BLOOD COUNT 13.2 10^3/ul (4.5-11.0)
[2016-11-24 08:41] LABS: INR 1.08 (0.93-1.08); PARTIAL THROMBOPLASTIN TIME 28.8 Seconds (23.7-30.8)
[2016-11-24 08:42] LABS: ALB/GLOB RATIO 0.7 (1.1-1.8); BILIRUBIN,DIRECT 0.7 mg/dL (0.0-0.4); BILIRUBIN,TOTAL 0.8 mg/dL (0.2-1.3); CALCIUM 8.4 mg/dL (8.4-10.5); MAGNESIUM 1.9 mg/dL (1.7-2.2); POTASSIUM 4.6 mmol/L (3.6-5.0); TOTAL PROTEIN 6.4 g/dL (5.8-8.3)
--- NOTE | 2016-11-24 09:25 | CP.PCM.PN ---
Subjective - Date & Time of Evaluation Date of Evaluation: 11/24/16 Time of Evaluation: 07:00 - Subjective Subjective: Surgery Progress note. Dr. Alfredo PT seen and examined at bedside. No acute events overnight. Denies any new complaints. No SOB/CP. Tolerating diet. No N/V/D. No Abd Pain. Objective - Vital Signs/Intake and Output Vital Signs (last 24 hours): Temp Pulse Resp BP Pulse Ox 97.6 F 69 18 110/56 L 98 11/24/16 07:30 11/24/16 07:30 11/24/16 07:30 11/24/16 07:30 11/24/16 07:30 Intake and Output: 11/24/16 11/24/16 06:59 18:59 Output Total 400 Balance -400 - Medications Medications: Current Medications Atenolol (Tenormin) 12.5 mg PO BID [facility] Last Admin: 11/23/16 18:17 Dose: 12.5 mg Cholecalciferol (Vitamin D) 2,000 iu PO DAILY [facility] Last Admin: 11/23/16 10:14 Dose: 2,000 iu Clonazepam (Klonopin) 4 mg PO HS [facility] PRN Reason: Protocol Last Admin: 11/18/16 22:21 Dose: Not Given Diltiazem HCl (Cardizem) 30 mg PO TID [facility] Last Admin: 11/23/16 10:03 Dose: Not Given Home Med (Home Med) 1 unit PO DAILY [facility] Last Admin: 11/23/16 11:38 Dose: 1 unit Levalbuterol HCl (Xopenex) 0.63 mg IH [id number] [facility] Last Admin: 11/24/16 01:27 Dose: Not Given Lorazepam (Ativan) 0.5 mg PO BID [facility] PRN Reason: Protocol Last Admin: 11/19/16 17:32 Dose: Not Given Mupirocin (Bactroban Ointment) 0 gm TOP TID [facility] Last Admin: 11/23/16 18:18 Dose: Not Given Pantoprazole Sodium (Protonix Inj) 40 mg IVP DAILY [facility] Last Admin: 11/23/16 10:16 Dose: 40 mg Rivastigmine (Exelon Cap) 4.5 mg PO 0800,1800 [facility] Last Admin: 11/24/16 08:40 Dose: 4.5 mg Ropinirole HCl (Requip) 8 mg PO 0800 [facility] Last Admin: 11/24/16 08:40 Dose: 8 mg Verapamil HCl (Verapamil Inj) 2.5 mg IVP Q6H PRN PRN Reason: for Heart rate >130 - Labs Labs: 11/24/16 07:00 11/24/16 07:00 PT 11.7 Seconds (9.9-11.8) 11/24/16 07:00 INR 1.08 (0.93-1.08) 11/24/16 07:00 APTT 28.8 Seconds (23.7-30.8) 11/24/16 07:00 - Constitutional Appears: Well, No Acute Distress - Head Exam Head Exam: ATRAUMATIC, NORMAL INSPECTION, NORMOCEPHALIC - Eye Exam Eye Exam: EOMI, Normal appearance. absent: Scleral icterus - ENT Exam ENT Exam: Mucous Membranes Moist - Respiratory Exam Respiratory Exam: NORMAL BREATHING PATTERN - Cardiovascular Exam Cardiovascular Exam: RRR. absent: JVD - GI/Abdominal Exam GI & Abdominal Exam: Soft. absent: Tenderness Additional comments: Ostomy pink. Dressing intact. semi liquid stool output - Neurological Exam Neurological Exam: Alert, Awake - Skin Skin Exam: Dry, Normal Color, Warm Assessment and Plan - Assessment and Plan (Free Text) Assessment: 81yo F with Recta-vesiculo fistula, Rectal vaginal fistula. s/p diverting loop colostomy on 11/14. complicated by symptomatic bradycardia requiring pacemaker placement and subsequent PTX requiring pleurocath placement. - Pleurocath removed on 11/22. - Repeat CXR - interval improvement of Left Apical small pneumo. - Ostomy with good output. Advance diet as tolerated. - No further plans for any surgical intervention. Discussed case with Dr. Juni Puente PGY1 surgery pager: [phone]
--- NOTE | 2016-11-24 10:16 | RAD ---
HISTORY: eval left ptx COMPARISON: 11/23/2016 TECHNIQUE: Chest PA and lateral FINDINGS: LUNGS: The previously seen small left apical pneumothorax has resolved. PLEURA: Small to moderate pleural effusions CARDIOVASCULAR: Mild cardiomegaly OSSEOUS STRUCTURES: No significant abnormalities. VISUALIZED UPPER ABDOMEN: Normal. OTHER FINDINGS: None. IMPRESSION: Resolved left apical pneumothorax
--- NOTE | 2016-11-24 11:17 | PN ---
DATE: 11/24/2016 The patient is in room 568, bed 1. REASON FOR CONSULTATION AND FOLLOWUP: Multiple episodes of bradycardia, tachybrady syndrome, status post permanent pacemaker insertion. HISTORY OF PRESENT ILLNESS: The patient is an 81-year-old female, known to have colovesical and colo vaginal fistula, was admitted with sepsis and urinary tract infection. The patient then had a colost renetta, and then the patient started getting paroxysmal atrial fibrillation with tachybrady syndrome, chicas ving rapid rate, and then having pauses, for which a pacemaker was inserted, which was followed by co mplication of 10% pneumothorax, which after chest tube had resolved. The patient denies chest pain, shortness of breath, or palpitation. The patient is lying comfortably in bed. PHYSICAL EXAMINATION: VITAL SIGNS: Blood pressure 110/56, respirations 18, pulse 69, and temperature 97.6. HEAD: Normocephalic. EYES: Pupils are normal. Conjunctivae are slightly pale. NECK: JVP low. Carotids equal. THORAX: AP diameter normal. LUNGS: No significant rales. CARDIOVASCULAR: S1, S2, systolic murmur. No rub. ABDOMEN: Colostomy as mentioned. EXTREMITIES: No clubbing, no cyanosis. LABORATORY DATA: WBC 13.2, hemoglobin 11.2, hematocrit 35.6, platelets 176. Sodium 141, potassium 4 .6, BUN 65, creatinine 1.8, random glucose 131, total protein 6.4, albumin low at 2.6. DIAGNOSES: Status post sepsis, urinary tract infection, colovesical-colovaginal fistula status post colostomy, tachybrady syndrome, admitted with rapid atrial fibrillation, status post permanent pacema ker insertion, resolved pneumothorax, aortic stenosis, mitral regurgitation, tricuspid regurgitation, renal failure. The patient had arm-swelling, probably low albumin level. PLAN: Continue Cardizem 30 mg p.o. t.i.d., atenolol 12.5 b.i.d., Xopenex hand nebulizer therapy, Klo nopin 4 mg p.o. at bedtime, Ativan 0.5 mg b.i.d. The patient is being followed by nephrology. The p atient had ____ dialysis done ____for acute renal failure. We will continue present therapy. We koby l follow with you. Bishop Peoples MD cc: [phone] TT: 11/24/2016 11:16:31 Confirmation # [id number] Dictation # [id number] jn
--- NOTE | 2016-11-24 12:39 | DS ---
The patient is seen lying in the bed, in room 568, bed 1 with patient's son and at bedside. The patient is awake, responsive, alert, does not appear to be in any distress. Overnight nurse's notes were reviewed. The patient was put out of bed to recliner yesterday after my morning rounds. The patient had the right groin Kyle catheter removed as per Dr. Ash's order. The patient' s Ramirez was irrigated and left-sided pigtail catheter chest tube was removed. PHYSICAL EXAMINATION: VITAL SIGNS: T-max is 98.4, heart rate 69-71, blood pressure 110/56, 113/53, 128/55, respiration 18, O2 sat 98%. INTAKE AND OUTPUT: Intake yesterday 300, output 985. Today's intake/output not listed. HEAD: Normocephalic, atraumatic. HEENT: Shows pinkish, pale conjunctivae, anicteric sclerae. No oropharyngeal lesion. CHEST: Positive kyphosis. Positive decreased breath sounds at the left base. Positive left upper chest pacemaker noted. CARDIOVASCULAR: S1, S2, regular rhythm, positive systolic murmur left sternal border, right second intercostal space, left second intercostal space. ABDOMEN: Soft, protuberant. Positive bowel sounds. Positive right-sided colostomy. GENITALIA: Female. Positive Ramirez catheter. EXTREMITIES: Shows positive SCDs. Positive trace swelling of the lower extremity. Right groin Kyle catheter removed. NEUROLOGIC: The patient is alert, awake, responsive. The patient does not appear to be in any distress. The patient is lying in the bed comfortably. MUSCULOSKELETAL: Shows a body mass index of 27.5. DIAGNOSTICS: 11/24, WBC 13.2, hemoglobin and hematocrit 11.2 and 36, platelets 176, granulocytes 77%. PT, PTT is 11.7 and 28.8. Sodium 141, potassium 4.6, chloride 114, CO2 18, anion gap 14, BUN 65, creatinine 1.2, GFR 33, glucose 131 , calcium 8.4, magnesium 1.9, AST 40, alkaline phosphatase 277, albumin 2.6. Repeat urine and blood cultures are negative. The patient's last chest x-ray from 11/24 shows left apical pneumothorax has resolved, small to moderate pleural effusion, mild cardiomegaly and resolved left apical pneumothorax. FINAL IMPRESSION, PLAN, AND DISCHARGE DIAGNOSES: 1. Sepsis, secondary to aspiration pneumonia. 2. 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 3. Hypoxic, hypercarbic and hypocapnic, BiPAP requiring respiratory failure. 4. Transient hypotension. 5. Hypoxemia. 6. Status post diastolic congestive heart failure and volume overload. 7. Leukocytosis, granulocytosis and bandemia. 8. Transient coagulopathy, secondary to heparin and Coumadin. 9. Severe respiratory acidosis and metabolic acidosis with hypercarbia and hypoxemia. 10. Transient hypernatremia. 11. Non-hemolyzed hyperkalemia. 12. Acute kidney injury and acute renal failure, hemodialysis requiring x 1. 13. Hypocalcemia. 14. Transient hyperphosphatemia. 15. Transaminitis. 16. Hypoalbuminemia. 17. Secondary hyperparathyroidism with elevated PTH. 18. Hyperprocalcitonemia. 19. Non-hemolyzed hyperkalemia. 20. Severe deconditioning and gait dysfunction and functional quadriplegia. 21. Acute diastolic congestive heart failure with elevated BNP. 22. Hypocalcemia. 23. Vancomycin-resistant Enterococcus faecium urinary tract infection with proteinuria, hematuria, pyuria, bacteriuria and funguria. 24. Status post permanent pacemaker implant. 25. Post permanent pacemaker left apical pneumothorax. 26. Status post left chest pigtail catheter chest tube placement. 27. Resolved left apical pneumothorax. 28. Cardiomegaly. 29. Bilateral pleural effusion. 30. Paroxysmal atrial fibrillation with rapid ventricular response and slow ventricular response with pauses and periods of asystole. 31. Severe gait dysfunction. 32. Bedridden status. 33. Paroxysmal atrial fibrillation converting to normal sinus rhythm. 34. Left axis deviation versus left anterior hemiblock. 35. Questionable incomplete left bundle branch block. 36. Sick sinus syndrome and mai-tachy syndrome. 37. Status post loop colostomy. 38. History of anxiety, depression, dementia and Parkinson disease. 39. Hypovitaminosis D. 40. Gait dysfunction. 1. Acute renal failure, status post hemodialysis. 2. Severe sepsis with hyperprocalcitonemia. 3. Paroxysmal atrial fibrillation with rapid ventricular response and slow ventricular response with periods of asystole and pauses. 4. Status post left upper chest permanent pacemaker implant. 5. Post permanent pacemaker left apical pneumothorax. 6. Status post pigtail chest tube placement on the left side. 7. Severe gait dysfunction and deconditioning and possible functional quadriplegia. 8. Persistent refractory leukocytosis with granulocytosis and bandemia. 9. Normocytic anemia. 10. Hypoxemia. 11. Severe metabolic and severe respiratory acidosis. 12. Hypercarbic and hypercapnic respiratory failure. 13. Non-hemolyzed hyperkalemia. 14. Hypernatremia. 15. Acute renal failure and acute kidney injury. 16. Increased anion gap metabolic acidosis. 17. Hypocalcemia. 18. Transaminitis. 19. Hypoalbuminemia. 20. Secondary hyperparathyroidism with elevated intact PTH. 21. Hyperprocalcitonemia. 22. Vancomycin-resistant Enterococcus faecalis urinary tract infection with proteinuria, hematuria, pyuria, bacteriuria and funguria. 23. Diastolic congestive heart failure with pulmonary vascular congestion and bilateral lower lobe pneumonia, infiltrate and effusion. 24. Left anterior hemiblock and possible incomplete left bundle branch block. 25. 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 26. Status post hemodialysis x 1. 27. Severe deconditioning and gait dysfunction. 28. History of Parkinson disease, dementia, anxiety, depression. 29. Hypovitaminosis D. 1. Acute renal failure, status post hemodialysis via the right groin hemodialysis catheter. 2. Hypotension. 3. Paroxysmal atrial fibrillation. 4. Hypotension. 5. Leukocytosis with granulocytosis. 6. Bandemia with leukocytosis. 7. Severe metabolic acidosis and respiratory acidosis and hypercarbic, hypercapnic respiratory BiPAP-requiring respiratory failure. 8. 7. Non-hemolyzed hyperkalemia. 9. Transient hyponatremia. 10. Hyperphosphatemia. 11. Transaminitis. 12. Secondary hyperparathyroidism with elevated intact PTH. 13. Hypoalbuminemia. 14. Hyper-procalcitoninemia. 15. Proteinuria, hematuria, pyuria, bacteriuria, funguria. 16. Vancomycin-resistant Enterococcus faecium urinary tract infection. 17. Severe deconditioning and gait dysfunction. 18. Bilateral lower extremity venous stasis. 19. Status post loop colostomy. 20. Acute tubular necrosis secondary to hypotension. 21. Oliguric acute renal failure. 22. Non-hemolyzed hyperkalemia. 23. Possible diastolic congestive heart failure with volume overload and bilateral pleural effusion. 24. Hypercarbic hypercapnic respiratory failure. 25. Severe metabolic and respiratory acidosis. 26. Sepsis secondary to aspiration pneumonia. 27. Severe sepsis secondary to aspiration pneumonia and vancomycin-resistant Enterococcus urinary tract infection. 28. Atrial fibrillation. 29. Status post permanent pacemaker implant. 30. Post permanent pacemaker implant, left-sided apical pneumothorax. 31. Bilateral persistent pleural effusion and cardiomegaly. 32. Left anterior hemiblock and left bundle branch block. 1. Acute renal failure, status post hemodialysis times one via the right groin hemodialysis catheter placed. 2. Paroxysmal atrial fibrillation with rapid ventricular response and slow ventricular response. 3. Status post permanent pacemaker implant. 4. Acute tubular necrosis. 5. Non-hemolyzed hyperkalemia with increased anion gap metabolic acidosis and respiratory acidosis. 6. Post-pacemaker insertion, left apical pneumothorax. 7. Sepsis secondary to aspiration pneumonia with acute hypercapneic, hypercarbic BiPAP dependent respiratory failure. 8. Severe deconditioning and gait dysfunction. 9. Transient hypotension. 10. Leukocytosis with granulocytosis. 11. Bandemia. 12. Respiratory acidosis with hypercarbia and metabolic acidosis. 13. Hyper-procalcitoninemia. 14. Transaminitis with hyperbilirubinemia. 15. Hyponatremia. 16. Non-hemolyzed hyperkalemia. 17. Vancomycin-resistant Enterococcus faecalis urinary tract infection. 18. Left anterior hemiblock. 19. Incomplete left bundle branch block. 20. Acute renal failure with acute tubular necrosis. 21. Cardiomegaly. 22. Moderate bilateral pleural effusion with congestive heart failure. 23. Cardiomegaly. 24. Sick sinus syndrome. 25. Atrial fibrillation with rapid ventricular response and slow ventricular response with multiple pauses and asystole. 1. Acute renal failure, status post hemodialysis x 1 via the right groin hemodialysis catheter. 2. Paroxysmal atrial fibrillation, status post permanent pacemaker implant. 3. Acute tubular necrosis. 4. Non-hemolyzed hyperkalemia with increased anion gap metabolic acidosis and respiratory acidosis. 5. Hypercapnic hypercarbic respiratory failure, bilevel positive airway pressure dependent. 6. Respiratory acidosis with hypercarbia. 7. Metabolic encephalopathy. 8. Sepsis secondary to aspiration pneumonia with acute hypercapneic hypercarbic bilevel positive airway pressure-dependent respiratory failure. 9. Volume overload with diastolic congestive heart failure. 10. Paroxysmal atrial fibrillation with rapid and slow ventricular response with multiple long pauses. 11. Post pacemaker implant, left apical pneumothorax, status post pigtail chest tube placement. 12. Severe deconditioning and gait dysfunction. 13. Multisystem organ failure. 14. Possible hypovolemic hypotensive shock with hypoxemia. 15. Persistent leukocytosis with granulocytosis and bandemia. 16. Severe increased anion gap metabolic acidosis with respiratory acidosis. 17. Non-hemolyzed hyperkalemia. 18. Transaminitis. 19. Hypoalbuminemia. 20. Hyperprocalcitoninemia. 21. Vancomycin-resistant Enterococcus faecium urinary tract infection. 22. Status post right groin hemodialysis catheter placement. 23. History of anxiety, history of dementia, history of Parkinson's disease, history of hypovitaminosis D. 1. Bilevel positive airway pressure dependent respiratory failure. 2. Status post single chamber pacemaker implant. 3. Sick sinus syndrome, paroxysmal atrial fibrillation, tachybrady syndrome with asystole and multiple pauses of more than 6 seconds. 4. Status post permanent pacemaker implant on the left upper chest. 5. Post-pacemaker implant, post-pacemaker implant, post-pacemaker implant, left apical pneumothorax. 6. Status post left-sided pigtail chest tube placement. 7. Severe kyphosis. 8. Thoracic spondylosis and osteopenia. 9. Paroxysmal atrial fibrillation with rapid ventricular response and slow ventricular response with pauses and period of asystole. 10. Cardiomegaly. 11. Encephalopathy with lethargy. 12. Diffuse cerebral cortical atrophy of the brain with ventricular prominence with small vessel chronic microvascular ischemic disease of the brain. 13. Left anterior hemiblock and left bundle branch block. 14. Vancomycin-resistant Enterococcus faecium urinary tract infection. 15. 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 16. Acute renal failure. 17. Hypercapnic respiratory failure. 18. Status post rapid response secondary to asystole and multiple long cardiac pauses. 19. Possible multisystem organ failure. 20. Severe deconditioning. 21. Hypercapnic respiratory failure with severe metabolic acidosis. 22. Non-hemolyzed hyperkalemia. 23. Acute kidney injury, acute renal failure. 24. Hyperprocalcitoninemia. 1. Status post rapid response. 2. Severe symptomatic bradycardia with cardiac pauses. 3. Possibly beta juan alberto, calcium channel juan alberto induced. 4. Atrial fibrillation with slow ventricular response and pauses. 5. Transient hypotension. 6. Metabolic acidosis. 7. Transient hypotension. 8. Atrial fibrillation with slow ventricular response and pauses and sinus bradycardia. 9. Leukocytosis with granulocytosis. 10. Thrombocytosis. 11. Atrial fibrillation. 12. Hypoxemia. 13. Transient metabolic acidosis. 14. Acute kidney injury with underlying chronic kidney disease stage III/IV. 15 Transaminitis. 16. Possible diastolic congestive heart failure with elevated BNP. 17. Enterococcus faecium urinary tract infection. 18. Bilateral lower lobe infiltrates, effusion and cardiomegaly with congestive heart failure. 19. Enterococcus faecium urinary tract infection. 20. Severe deconditioning and gait dysfunction and possibly functional quadriplegia. 21. Bilateral pleural effusion and cardiomegaly. 22. Atrial fibrillation with slow ventricular response. 23. Sinus bradycardia with first degree AV block and left anterior hemiblock and left bundle branch block. 24. Cerebral cortical atrophy of the brain with ventricular prominence. 25. Chronic microvascular ischemic disease of the brain. 26. 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 27. Status post loop colostomy, postop day #4. 28. Acute kidney injury with underlying chronic kidney disease stage III. 29. History of moderate aortic regurgitation, mild aortic stenosis, moderate mitral regurgitation, mild tricuspid regurgitation. 30. Status post diverting colostomy and loop colostomy. 31. Deconditioning. 32. Gait dysfunction. 1. Volume overload versus questionable diastolic congestive heart failure with bilateral bibasilar infiltrates and effusion and cardiomegaly. 2. Atrial fibrillation. 3. History of hypertension. 4. Leukocytosis with granulocytosis. 5. Normocytic anemia. 6. Transient Hypernatremia. 7. Acute kidney injury with chronic kidney disease, stage III. 8. Hypocalcemia. 9. Hypoalbuminemia. 10. Sepsis. 11. Sepsis with urinary tract infection and colovesicular/colovaginal fistula. 12. Status post loop colostomy, postoperative day 3. 13. Gait dysfunction. 14. Deconditioning. 1. Sepsis, secondary to rectovaginal, rectovesical fistula with inadequate drainage of urine and stool,status post loop colostomy,postop day 2. 2. Questionable lethargy, etiology undetermined. 3. Paroxysmal atrial fibrillation. 4. Leukocytosis with granulocytosis. 5. Normocytic anemia. 6. Transient coagulopathy. 7. Hypernatremia. 8. Hypokalemia. 9. Acute kidney injury with underlying chronic kidney disease stage III with prerenal kidney injury. 10. Hypocalcemia. 11. Mild hypoalbuminemia. 12. Left bundle branch block, left anterior hemiblock 13. Status post loop colostomy, postop day 2. 14. Sepsis, secondary to colovesicular, colovaginal fistula. 15. Encephalopathy. 16. History of anxiety, history of dementia, history of Parkinson disease, history of depression, history of hypovitaminosis D. 1. 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 2. Status post loop colostomy. 3. 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 4. Atrial fibrillation with rapid ventricular response. 5. Left anterior hemiblock. 6. Left bundle branch block. 7. Transient hypotension and bradycardia. 8. Hypernatremia. 9. Acute kidney injury with underlying chronic kidney disease stage III/IV. 10. Indeterminate troponin. 11. Leukocytosis with granulocytosis. 12. Transient coagulopathy. 13. Hyponatremia. 14. Prerenal kidney injury. 15. Severe gait dysfunction and deconditioning. 16. Status post colostomy diversion. 17. Paroxysmal atrial fibrillation converting to normal sinus rhythm with left axis deviation, left anterior hemiblock, left bundle branch block. 18. Urinary retention. 19. History of dementia, Parkinson disease. 20. Transient confusional state. 21. Transient agitation (resolved). 22. Deconditioning. 23. Gait dysfunction. 24. Status post loop colostomy, postop day 1. 25. Deconditioning. 26. Gait dysfunction. 27. Questionable possible functional quadriplegia. 28. History of anxiety. 29. History of dementia. 30. History of Parkinson disease. 31. History of hypovitaminosis D. 1. Sepsis with leukocytosis and granulocytosis. 2. New onset atrial fibrillation with rapid ventricular response and indeterminate troponin. 3. Moderate aortic regurgitation, mild aortic stenosis, moderate mitral regurgitation with left ventricular ejection fraction of 55%. 4. Left anterior hemiblock. 5. Questionable left bundle branch block. 6. Lateral wall ischemic changes on the EKG. 7. Severe deconditioning, gait dysfunction versus questionable and possible functional quadriplegia. 8. Sepsis, secondary to rectovesical and rectovaginal fistula and inadequate drainage of urine and stool. 9. Status post treatment for Escherichia coli urinary tract infection, secondary to rectovesical, rectovaginal fistula. 10. Acute kidney injury. 11. Transient hypotension. 12. History of hypertension. 13. Anemia. 14. Leukocytosis. 15. Normocytic iron deficiency anemia. 16. Mild coagulopathy, secondary to anticoagulation. 17. Hypokalemia. 18. Acute kidney injury with underlying chronic kidney disease stage IV. 19. Hypoalbuminemia. 20. Indeterminate troponin. 21. Hypotension with sepsis and new onset atrial fibrillation with rapid ventricular response. 22. History of Parkinson disease, dementia, history of anxiety, depression, history of hypovitaminosis D. 1. Recurrent urinary retention with urinary bladder distention. 2. Questionable systemic inflammatory response syndrome versus sepsis with low- grade fever of 105, tachycardia 3. Leukocytosis with granulocytosis. 4. Normocytic anemia. 5. Hypokalemia. 6. Acute kidney injury. 7. Mild hypoalbuminemia 8. Severe deconditioning, gait dysfunction and bedridden status with questionable functional quadriplegia. 9. History of dementia, depression, Parkinson's disease, history of hypertension. 10. Hypovitaminosis D. 11. Deconditioning. 1. Recurrent urinary retention with urinary bladder distention. 2. Severe deconditioning and gait dysfunction. 3. Functional quadriplegia with severe deconditioning and gait dysfunction and bedridden status. 4. Small bilateral pleural effusion and bibasilar atelectasis. 5. Questionable sigmoid colitis with mural thickening. 6. Urinary retention with distended urinary bladder with air fluid level. 7. Hypertension. 8. Tachycardia. 9. Leukocytosis with granulocytosis. 10. Questionable systemic inflammatory response syndrome. 11. Normocytic anemia. 12. Acute recurrent kidney injury. 13. 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 14. Normocytic iron deficiency anemia. 15. Chronic kidney disease stage II/III. 1. Severe deconditioning, severe gait dysfunction and possible questionable functional quadriplegia. 2. Urinary retention. 3. Colovesicular and colovaginal fistula. 4. Abdominal distention, probably secondary to urinary retention. 5. Sepsis secondary to Escherichia coli urinary tract infection and colovesicular and colovaginal fistula. 6. Hypertension. 7. Questionable ileus with constipation, fecal retention, fecal stasis. 8. Asymptomatic hypoxemia. 9. Status post acute renal failure. 10. Normocytic iron deficiency anemia. 11. Status post IV Venofer infusion. 12. Leukocytosis with granulocytosis. 13. Status post acute renal failure. 14. Hypocalcemia. 15. Mild hypoalbuminemia. 16. History of anxiety disorder, history of dementia, history of depression, history of Parkinson's disease, hypovitaminosis D. 1. Severe deconditioning and gait dysfunction. 2. Deconditioning. 3. Questionable constipation and fecal retention. 4. Asymptomatic hypoxemia. 5. Leukocytosis with granulocytosis. 6. Normocytic anemia. 7. Prerenal kidney injury. 8. Status post acute renal failure. 9. 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 10. Deconditioning. 11. Gait dysfunction. 12. Sepsis secondary to Escherichia coli urinary tract infection. 13. History of colovesicular colovaginal fistula. 14. Dementia. 15. History of Parkinson disease. 16. History of anxiety disorder. 17. History of constipation. 1. Severe deconditioning and gait dysfunction. 2. Possible functional quadriplegia. 3. Nonproteinuric chronic kidney disease stage III. 4. Acute renal failure, secondary to prerenal kidney injury (resolved). 5. Mild venous stasis of the lower extremities. 6. Sepsis with Escherichia coli urinary tract infection. 7. Rectovesical and rectovaginal fistula. 8. Deconditioning. 9. Gait dysfunction. 10. Normocytic anemia. 11. Normocytic iron deficiency anemia. 12. Leukocytosis with granulocytosis. 13. Hypocalcemia. 14. Hypokalemia. 1. Severe gait dysfunction and deconditioning and possible functional quadriplegia. 2. Sepsis secondary to Escherichia coli urinary tract infection with history of rectovaginal, rectovesical fistula. 3. Escherichia coli urinary tract infection. 4. Acute renal failure. 5. Hypoxemia. 6. Normocytic anemia. 7. Leukocytosis with granulocytosis. 8. Status post acute renal failure. 9. Hypocalcemia. 10. Mild hypoalbuminemia. 11. History of dementia, Parkinson's disease, anxiety, and possible depression. 12. Prerenal kidney injury. 13. Non-proteinuric chronic kidney disease stage III. 14. History of anxiety. 15. History of dementia, history of depression, history of hypovitaminosis D. 1. Severe deconditioning and gait dysfunction and possible bedridden status and possible functional quadriplegia. 2. Sepsis secondary to a Escherichia coli urinary tract infection with history of vaginal and rectovesical fistula. 3. Deconditioning. 4. Escherichia coli urinary tract infection. 5. Acute renal failure. 6. History of hypertension. 7. Asymptomatic hypoxemia. 8. Kyphosis of the thoracic spine. 9. Hypoalbuminemia. 10. Hypocalcemia. 11. Normocytic anemia. 12. Hypokalemia. 13. Oropharyngeal dysphagia with impulsive and unsafe eating behaviors. 14. History of anxiety disorder. 15. History of dementia. 16. History of Parkinson disease. 17. History of normocytic iron deficiency anemia. 1. Severe gait dysfunction, deconditioning and bedridden status. 2. Questionable and possible functional quadriplegia. 3. Escherichia coli urinary tract infection. 4. Acute renal failure. 5. Systemic inflammatory response syndrome versus possible sepsis secondary to Escherichia coli urinary tract infection. 6. Colovesical and colovaginal fistula. 7. History of hypertension. 8. Asymptomatic hypoxemia. 9. Normocytic iron deficiency anemia. 10. Normal potassium. 11 Acute renal failure with mild prerenal kidney injury. 12. Non-proteinuric chronic kidney disease stage III/IV. 13. Hypocalcemia. 14. Hypoalbuminemia. 15. Malnutrition. 16. History of anxiety disorder. 17. History of dementia. 18. Iron deficiency normocytic anemia. 19. History of anxiety disorder. 20. Hypovitaminosis D. 21. Hyperuricemia. 22. Deconditioning. 1. Acute renal failure. 2. Systemic inflammatory response syndrome versus possible sepsis secondary to Escherichia coli urinary tract infection. 3. Colovesicular and colovaginal fistula. 4. Acute renal failure. 5. Poor compliance. 6. Severe gait deconditioning and severe gait dysfunction and bedridden status. 7. Functional quadriplegia. 8. Transient asymptomatic hypoxemia. 9. Leukocytosis with granulocytosis. 10. Normocytic iron deficiency anemia. 11. Transient hypernatremia. 12. Acute renal failure. 13. Hyperuricemia. 14. Transaminitis. 15. . 16. Hyperuricemia. 17. Iron deficiency normocytic anemia. 18. Escherichia coli urinary tract infection with proteinuria, hematuria, bacteriuria and pyuria. 19. Sepsis secondary to Escherichia coli urinary tract infection. 20. Mild aortic stenosis. 21. Moderate aortic regurgitation, moderate mitral regurgitation and mild tricuspid regurgitation. 22. History of anxiety disorder, history of dementia, history of hypovitaminosis D and hyperuricemia. 1. Acute renal failure. 2. Questionable sepsis with leukocytosis, granulocytosis. 3. Normocytic anemia. 4. Hypertension. 5. History of dementia. 6. Leukocytosis with granulocytosis. 7. Normocytic anemia. 8. Transient hypernatremia. 9. Acute kidney injury and acute renal failure (resolving). 10. Severe gait dysfunction, deconditioning and possible functional quadriplegia. 11. Hyperuricemia. 12. Transaminitis. 13. Hyperprocalcitoninemia. 14. Hypovitaminosis D. 15. Acute renal failure and acute kidney injury. 16. Escherichia coli urinary tract infection with hematuria, pyuria, bacteriuria. 17. Systemic inflammatory response syndrome with possible sepsis secondary to Escherichia coli urinary tract infection with ____vaginal and ____ fistula. 18. Prerenal azotemia. 19. Chronic kidney disease, stage, IIIB, nonproteinuric. 20. Severe deconditioning and gait dysfunction. 21. Chronic ____, ____ fistula with Escherichia coli urinary tract infection. 22. Moderate aortic and moderate mitral regurgitation. 23. Mild mitral valve prolapse, calcified aortic valve with mild aortic stenosis and moderate aortic regurgitation and moderate mitral regurgitation and mild tricuspid regurgitation with left ventricular ejection fraction of 55%. 24. Gait dysfunction. 25. Deconditioning 26. Anxiety disorder. 27. Dementia. 28. Hypovitaminosis D. 29. Hyperuricemia. 1. Acute renal failure. 2. Questionable sepsis with leukocytosis and granulocytosis. 3. Normocytic anemia. 4. Questionable hemorrhagic cystitis. 5. Questionable hemorrhagic cystitis with intrinsic mural and perivesicular abnormalities and dependent echogenic material debris in the bladder. 6. Left bundle-branch block and left axis deviation. 7. Left lower lung pleural thickening. 8. Cardiomegaly. 9. Sigmoid diverticulosis. 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 11. 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 12. Status post hysterectomy. 13. Sigmoid diverticulosis. 14. Leukocytosis with granulocytosis. 15. Normocytic anemia. 16. Hyponatremia. 17. Slow-resolving acute renal failure. 18. Hyperuricemia. 19. History of dementia. 20. Deconditioning. 21. Gait dysfunction. 22. Recurrent fall. 23. Questionable functional quadriplegia. 24. Hypovitaminosis D. 25. History of dyslipidemia. 26. History of angina, history of hypertension, history of dementia. 1. Altered mental status, etiology undetermined. 2. Acute renal failure and acute kidney injury and prerenal kidney injury. 3. Questionable and possible urinary tract infection. 4. Recurrent fall and gait dysfunction. 5. History of dementia. 6. Questionable swallowing and feeding dysfunction. 7. Leukocytosis with granulocytosis. 8. Normocytic anemia. 9. Hyperuricemia. 10. Hyperphosphatemia. 11. Transaminitis. 12. Elevated BNP with history of congestive heart failure. 13. Hematuria, pyuria, bacteriuria. 14. Left bundle branch block and left axis deviation. 15. Generalized osteopenia and thoracolumbar spondylosis with old healed left rib fracture. 16. Status post mastectomy for left breast carcinoma. 17. Gait dysfunction. 18. Recurrent falls. 19. 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 20. Questionable cystitis with thickened urinary bladder wall. 21. Questionable echogenic urinary bladder mass. 22. History of dementia. 23. History of hypovitaminosis D, history of anxiety, history of dementia, history of congestive heart failure, history of angina, history of dementia. 24. History of colovesicular and colovaginal fistula. 1. questionable atrial fibrillation with rapid ventricular response. 2. Left anterior hemiblock. 3. Hypertensive cardiovascular disease. 4. Questionable lateral ischemic changes. 1. Asymptomatic intermittent nonsustained ventricular tachycardia. 2. Volume overload. 3. History of dementia, history of depression, history of anxiety, history of Parkinson's disease. 4. Hypovitaminosis D. 5. Hypokalemia. 6. Acute kidney injury. PLAN: At this time, patient's case is referred to social worker aide for discharge planning. The patient's family is now requesting subacute rehab at [facility] or [place]. The patient will be discharged either to subacute rehab or to home depending upon patient's acceptance into subacute rehab or not. DISCHARGE MEDICATIONS: Will be Bactroban cream to the nasal bridge area 3 times a day, Cardizem 30 mg 3 times a day, Exelon 4.5 mg capsule twice a day, Selenium 200 mcg daily, Klonopin 4 mg at bedtime, Protonix 40 mg daily, Requip 8 mg at bedtime, Tenormin 12.5 twice a day, vitamin D3 2000 units daily and Xopenex nebulizer 0.63 mg q. 6 hours During this hospitalization, patient's condition, guarded to poor prognosis and deconditioned state and multiple organ failure and overall guarded to poor prognosis has been explained and discussed with the patient's son and the on multiple occasions on a daily basis. Most of the physicians and all the physicians have explained to the patient and the patient's and the patient's son about overall patient's guarded to poor prognosis. During this hospitalization, patient was also referred to home hospice as per the request of the patient's family, which was later declined and rescinded by the patient' s family. At present time of discharge, patient's family does not want home hospice and wishes the patient to be considered for subacute rehabilitation if accepted. The patient is to be discharged home or to subacute rehab, depending upon patient's acceptance to subacute rehab on not. The patient's discharge medications as dictated above. Dictated and electronically signed, not read. Time spent in the entire discharge process, more than 45 minutes. Rigo Vargas MD cc: [id number] TT: 11/24/2016 12:38:45 en MTDD
--- NOTE | 2016-11-24 13:31 | PN ---
DATE: 11/24/2016 An 81-year-old female with past medical history of hypertension, CHF, CKD, rectovesical/rectovaginal fistula, initially admitted with UTI sepsis secondary to rectovesical fistula, now status post loop c olostomy. Nephrology following patient for acute renal failure. The patient this morning appears as agitated. Per family, she goes through these periods, even befor e this admission. Otherwise, she denies any shortness of breath. Tolerated p.o. diet. PHYSICAL EXAMINATION: VITAL SIGNS: This morning, blood pressure 110/56, heart rate 69, respirations 18, temperature 97.6, O2 sat 90% on room air. GENERAL: Agitated, mild respiratory distress. HEENT: Moist mucous membranes. Nonicteric. CHEST: Decreased breath sounds at bases; otherwise clear to auscultation bilaterally. No rales, no rhonchi, no wheezes. CARDIOVASCULAR: S1, S2 positive. Irregular rate and rhythm. Elevated JVD. GASTROINTESTINAL: Abdomen soft, distended, nontender. Ostomy in place. GENITOURINARY: Ramirez in place. No bladder distention. EXTREMITIES: Moderate bilateral leg edema. SKIN: No cyanosis. LABORATORY DATA: This morning: WBC 13.2, hemoglobin 11.2, hematocrit 35.6, platelets 176. Chemistr y: Sodium 141, potassium 4.6, chloride 114, bicarbonate 18, BUN 65, creatinine 1.8, glucose 131, kiley cium 8.4, albumin 2.6. ASSESSMENT: 1. Acute renal failure on chronic kidney disease secondary to acute tubular necrosis in the setting of transient hypotension previously with oliguric renal failure, now appears to be nonoliguric after Ramirez flushed yesterday. No hyperkalemia. Mild normal anion gap metabolic acidosis in the setting o f renal failure, appears volume overloaded on exam. Renal function has been improving steadily over the last 3 days. Right femoral hemodialysis catheter discontinued yesterday. No more indication for hemodialysis. 2. Start Lasix 20 mg IV push q. 12 hours. Can transitioned to p.o. Bumex 1 mg b.i.d. (p.o. Bumex chicas s much better bioavailability than p.o. Lasix). 3. Sepsis. Repeat urine culture negative. The patient had been on escalated antibiotics for 4 days before being discontinued yesterday. Leukocytosis is improving. Also would continue to monitor johan sely as the patient likely has some stool remnant that is seeping into bladder and is still at risk f or urinary tract infection. If needing antibiotics, currently should be dosed for creatinine clearan ce less than 30. 4. Congestive heart failure. Systolic function improved per echocardiogram prior to hospitalization . 5. The patient with bilateral pleural effusions. Lasix previously held as patient was hypotensive. Restarting today. 6. Rectovesical fistula, status post diverting colostomy. The patient still with intermittent Ramirez obstruction secondary to stool remnant that is seeping into bladder. Had urinary retention yesterda y that was resolved, at least temporarily, with saline flush. Need to continue regular Ramirez flushes q. 4-6 hours. 7. Hypotension. Blood pressure stable today. Tolerating atenolol 12.5 mg b.i.d. Cardizem currentl y being held. Heart rate has been controlled. Would continue to hold Cardizem as we should keep MAP above 65 in order to avoid further renal insult. Wally Ash MD cc: [id number] TT: 11/24/2016 13:30:08 Confirmation # [id number] Dictation # [id number] mn
[2016-11-24] MEDS: SELENIUM 200 MCG PO SCH (15:16)
[2016-11-24 15:23] VITALS: BP 110/69
--- NOTE | 2016-11-25 08:10 | PN ---
DATE: 11/24/2016 The patient is in bed in no acute distress, nontoxic. PHYSICAL EXAMINATION: VITAL SIGNS: Temperature is 98, blood pressure is 120/70, respiratory rate 16. HEENT: Unremarkable. NECK: Supple. LUNGS: Have decreased breath sounds. HEART: Normal S1, S2. ABDOMEN: Soft, nontender, no organomegaly, no rebound, no guarding, no masses. LABORATORY DATA: Reveals the patient's white count is down to 13,200, hemoglobin of 11 and platelets of 176. The chemistries reveal the patient's BUN of 65, creatinine is down to 1.8. Microbiology re veals the repeat blood cultures and urine cultures are negative. ASSESSMENT AND PLAN: An 81-year-old female seen earlier today in 568, bed 2 who was initially admitt ed with sepsis secondary to aspiration pneumonia, acute respiratory failure, fluid overload, congesti ve heart failure, volume overload, acute on chronic renal injury, cardiac arrhythmia, atrial fibrilla tion, status post pacemaker placement and a left-sided pneumothorax and completed antibiotics. The c ase discussed with Dr. Vargas. No further antibiotics and will follow closely with you. Austen Bradford MD cc: [id number] TT: 11/24/2016 17:46:16 Confirmation # [id number] Dictation # [id number] mn
[2016-11-25 18:45] LABS: ALUMINUM 2 mcg/L (<7)
--- NOTE | 2016-11-26 10:58 | PQF GENQUE ---
11/26/16 Dr. Alfredo, Please document the location of this patient's loop colostomy--ascending colon, cecum, descending, sigmoid, transverse. Thank you. Clarification of your documentation is requested to better reflect the severity of illness and intensity of treatment of your patient. Indicators present [] Specify: [] [] Specify: [] [] Specify: [] [] Specify: [] Location in the medical record that reflects the above clinical findings: [] Treatment Provided: [] PHYSICIAN'S RESPONSE Based on your medical judgment of the clinical indicators outlined above please clarify the following: [] Practitioner response Transverse Colon [] If unable to determine, please check the box, sign and date. Present On Admission (POA) Indicator: [] Present at the time of admission Yes(16 years) [] Not present at the time of admission [] Clinically Undetermined In responding to this query, please exercise your independent professional judgment. The fact that a question is asked does not imply that any particular answer is desired or expected. Thank you for your clarification on this documentation. If you have any questions please call:[ ] * Thank you, [ ] car lot attendant ISMAEL
== END 2016-11-24 17:12 | DRG 853 ==
LOC: ED 13:41 → ERH 13:54 → 3RNO 16:13 → 2RNO 11-17 17:25 → CCU 11-19 21:45 → 5RNO 11-20 19:29
PROVIDERS: ADMIT Internal Medicine; ATTEND Internal Medicine
PROC: 0D1L0Z4 Bypass Transverse Colon to Cutaneous, Open Approach (ICD-10-PCS; principal; 2016-11-15)
DX: A41.9 Sepsis, unspecified organism (principal); G93.41 Metabolic encephalopathy; N17.0 Acute kidney failure with tubular necrosis; J69.0 Pneumonitis due to inhalation of food and vomit; I50.31 Acute diastolic (congestive) heart failure; J96.01 Acute respiratory failure with hypoxia; J96.02 Acute respiratory failure with hypercapnia; I47.2 Ventricular tachycardia; G92 Toxic encephalopathy; R17 Unspecified jaundice; R53.2 Functional quadriplegia; E87.0 Hyperosmolality and hypernatremia; N18.4 Chronic kidney disease, stage 4 (severe); E87.4 Mixed disorder of acid-base balance; I13.0 Hypertensive heart and chronic kidney disease with heart failure and stage 1 through stage 4 chronic kidney disease, or unspecified chronic kidney disease; N17.9 Acute kidney failure, unspecified; N32.1 Vesicointestinal fistula; E87.1 Hypo-osmolality and hyponatremia; N39.0 Urinary tract infection, site not specified; N82.0 Vesicovaginal fistula; N82.3 Fistula of vagina to large intestine; N25.81 Secondary hyperparathyroidism of renal origin; J93.9 Pneumothorax, unspecified; N13.9 Obstructive and reflux uropathy, unspecified; I49.5 Sick sinus syndrome; I08.3 Combined rheumatic disorders of mitral, aortic and tricuspid valves; E88.09 Other disorders of plasma-protein metabolism, not elsewhere classified; N32.89 Other specified disorders of bladder; D47.3 Essential (hemorrhagic) thrombocythemia; R33.9 Retention of urine, unspecified; B95.2 Enterococcus as the cause of diseases classified elsewhere; D50.9 Iron deficiency anemia, unspecified; I48.91 Unspecified atrial fibrillation; E55.9 Vitamin D deficiency, unspecified; E78.5 Hyperlipidemia, unspecified; E83.39 Other disorders of phosphorus metabolism; E83.51 Hypocalcemia; E87.5 Hyperkalemia; E87.6 Hypokalemia; G20 Parkinson's disease; I87.8 Other specified disorders of veins; I99.8 Other disorder of circulatory system; T83.091A Other mechanical complication of indwelling urethral catheter, initial encounter; Y73.2 Prosthetic and other implants, materials and accessory gastroenterology and urology devices associated with adverse incidents; K56.41 Fecal impaction; I48.0 Paroxysmal atrial fibrillation; M41.9 Scoliosis, unspecified; M47.814 Spondylosis without myelopathy or radiculopathy, thoracic region; M85.80 Other specified disorders of bone density and structure, unspecified site; R65.20 Severe sepsis without septic shock; R31.9 Hematuria, unspecified; Z16.21 Resistance to vancomycin; T45.515A Adverse effect of anticoagulants, initial encounter; I25.10 Atherosclerotic heart disease of native coronary artery without angina pectoris; I44.0 Atrioventricular block, first degree; I44.7 Left bundle-branch block, unspecified; R79.1 Abnormal coagulation profile; Z66 Do not resuscitate; Z79.899 Other long term (current) drug therapy; Z85.3 Personal history of malignant neoplasm of breast; Z90.12 Acquired absence of left breast and nipple; Z90.710 Acquired absence of both cervix and uterus; Z92.21 Personal history of antineoplastic chemotherapy; Z92.3 Personal history of irradiation; Z95.0 Presence of cardiac pacemaker; R53.81 Other malaise; R26.9 Unspecified abnormalities of gait and mobility; Z74.01 Bed confinement status; F02.80 Dementia in other diseases classified elsewhere, unspecified severity, without behavioral disturbance, psychotic disturbance, mood disturbance, and anxiety; F41.9 Anxiety disorder, unspecified; I95.9 Hypotension, unspecified; Z68.27 Body mass index [BMI] 27.0-27.9, adult; I49.3 Ventricular premature depolarization

== ENCOUNTER 2016-11-28 20:01 | Inpatient (IN) | payer MEDICARE ==
[2016-11-28 20:10] VITALS: BMI 22.9
[2016-11-28] MEDS ORDERED: Sodium Chloride 0.9% 500 ML IV STA ×2 (20:40→23:13)
--- NOTE | 2016-11-28 21:47 | CT ---
EXAM: CT Head Without Intravenous Contrast CLINICAL HISTORY: 81 years old, female; Signs and symptoms; Altered mental status/memory loss; Age related cognitive decline; Additional info: DOMINGO x2 weeks TECHNIQUE: Axial computed tomography images of the head/brain without intravenous contrast. This CT exam was performed using one or more of the following dose reduction techniques: automated exposure control, adjustment of the mA and/or kV according to patient size, and/or use of iterative reconstruction technique. COMPARISON: CT - HEAD W/O CONTRAST 11/17/2016 5:02:30 PM FINDINGS: Brain: Atrophy. Bilateral white matter changes. This is nonspecific and may include microangiopathic disease, small lacunae of indeterminate chronicity, chronic infarcts and/or encephalomalacia. Vascular calcification. No hemorrhage. No edema. Ventricles: No hydrocephalus. Bones: Skull is intact. Soft tissues: Unremarkable as visualized. Sinuses: No acute sinusitis. Mastoid air cells: No mastoid effusion. IMPRESSION: No CT evidence of acute intracranial abnormality. Chronic changes as above. Acute infarcts/early ischemic changes may not be detectable by this modality; MRI is more sensitive in detecting acute ischemia.
[2016-11-28 22:34] LABS: ADD MANUAL DIFF? NO
[2016-11-28 22:38] LABS: EOS # 0.1 (0.0-0.7); EOS % 0.5 % (1.5-5.0); GRAN % 79.8 % (50.0-68.0); HEMATOCRIT 38.7 % (36.0-48.0); LYMPH # 1.4 (1.2-3.4); LYMPH % 11.8 % (22.0-35.0); MEAN CELL VOLUME 105.2 fL (80.0-105.0); MEAN CORPUSCULAR HEMOGLOBIN 32.3 pg (25.0-35.0); MEAN CORPUSCULAR HGB CONC 30.7 g/dl (31.0-37.0); MEAN PLATELET VOLUME 11.6 fl (7.0-11.0); MONO % 7.9 % (1.0-6.0); PLATELET COUNT 303 10^3/uL (120.0-450.0); RED CELL DISTRIBUTION WIDTH 21.9 % (11.5-14.5); WHITE BLOOD COUNT 12.2 10^3/ul (4.5-11.0)
--- NOTE | 2016-11-28 22:41 | ED PDOC ---
Arrival/HPI - General Chief Complaint: Altered Mental Status Time Seen by Provider: 11/28/16 20:35 Historian: Family - Critical Care Critical Care Minutes: 30 minutes - History of Present Illness Narrative History of Present Illness (Text): 11/28/16 22:41 An 81 year old female sent from rehab outpatient for increased lethargy. Patient 's family reports patient has dementia, less responsive than usual. Family also reports patient had a decrease in appetite the past few days. Family states patient is DNR DNI. Patient is alert to name only, and family report this is her baseline. Symptom Onset: Sudden Symptom Course: Unchanged Activities at Onset: Rest Modifying Factors (Text): none Context: Other (rehab outpatient) Associated Symptoms (Text): decrease in appetite Past Medical History - Provider Review Nursing Documentation Reviewed: Yes - Infectious Disease Hx of Infectious Diseases: None - Reproductive Menopause: Yes - Cardiac Hx Cardiac Disorders: Yes Hx Congestive Heart Failure: Yes Hx Hypertension: Yes - Pulmonary Hx Respiratory Disorders: No Hx Chronic Obstructive Pulmonary Disease (COPD): No - Neurological Hx Neurological Disorder: Yes HX Cerebrovascular Accident: No Hx Parkinson's Disease: Yes - HEENT Hx HEENT Disorder: No - Renal Hx Renal Disorder: Yes (URINARY RETENTION) Hx Renal Failure: No - Endocrine/Metabolic Hx Endocrine Disorders: No Hx Diabetes Mellitus Type 1: No Hx Diabetes Mellitus Type 2: No Hx Hypothyroidism: No - Hematological/Oncological Hx Blood Transfusions: Yes Hx Blood Transfusion Reaction: No - Integumentary Hx Dermatological Disorder: Yes Other/Comment: MULTIPLE PUSTULES AND BROWN PLAQUES TO FACE AND BACK. - Musculoskeletal/Rheumatological Hx Arthritis: No Hx Falls: Yes - Gastrointestinal Hx Gastrointestinal Disorders: Yes (COLOVESICAL FISTULA) Hx Gastroesophageal Reflux: No Other/Comment: Colostomy - Genitourinary/Gynecological Hx Genitourinary Disorders: Yes (BREAST CA -LEFT MASTECTOMY.) Other/Comment: VESICOVAGINAL FISTULA,RECTOVAGINAL FISTULA,HYSTERECTOMY - Psychiatric Hx Psychophysiologic Disorder: Yes Hx Anxiety: Yes Hx Substance Use: No - Surgical History Other/Comment: Colostomy - Anesthesia Hx Anesthesia: Yes Hx Anesthesia Reactions: No Hx Malignant Hyperthermia: No Family/Social History - Physician Review Nursing Documentation Reviewed: Yes Family/Social History: No Known Family HX Smoking Status: Never Smoked Hx Alcohol Use: No Hx Substance Use: No Allergies/Home Meds Allergies/Adverse Reactions: Allergies No Known Allergies Allergy (Verified 04/19/17 21:15) Home Medications: Home Meds Medication Instructions Recorded Confirmed LORazepam [Ativan] 0.5 mg PO BID 10/29/16 11/28/16 Furosemide [Lasix] 1 tab PO DAILY 11/28/16 11/28/16 Mupirocin 2% Nasal [Bactroban 2% 1 applic TD TID 11/28/16 11/28/16 Nasal] Review of Systems - Review of Systems Systems not reviewed;Unavailable: Altered Mental Status Physical Exam - Physical Exam Narrative Physical Exam (Text): 11/28/16 22:45- Review of systems unavailable due to patient's AMS - Physical exam Patient is responsive to verbal and tactile stimuli. Patient following commands without difficulties; no focal and neurological deficits. Abdomen normal, colostomy bag with liquid stool. - Systems Exam Head: Present: Atraumatic, Normocephalic Pupils: Present: PERRL Extraocular Muscles: Present: EOMI Conjunctiva: Present: Normal Mouth: Present: Moist Mucous Membranes Neck: Present: Normal Range of Motion. No: MIDLINE TENDERNESS, Paraspinal Tenderness Respiratory/Chest: Present: Clear to Auscultation, Good Air Exchange. No: Respiratory Distress, Accessory Muscle Use, Tachypneic Cardiovascular: Present: Regular Rate and Rhythm, Normal S1, S2, Peripheral Pulses Present. No: Murmurs Abdomen: Present: Colostomy bag with liquid stool, Normal Bowel Sounds, No: Tenderness, Peritoneal Signs, Rebound, Guarding, Distention Back: Present: Normal Inspection. No: Midline Tenderness, Paraspinal Tenderness Upper Extremity: Present: Normal Inspection. No: Cyanosis, Edema Lower Extremity: Present: Normal Inspection. No: Edema Neurological: Present: GCS=15, No focal neurological deficits. Skin: Present: Warm, Dry, Normal Color. No: Rashes Lymphatic: Present: OX3, NI, NC Psychiatric: Present: Alert No: anxiety Vital Signs Reviewed: Yes Vital Signs Temp Pulse Resp BP Pulse Ox 11/29/16 01:25 86 17 99/67 L 91 L 11/28/16 22:44 68 17 103/42 L 100 11/28/16 20:15 97.8 F 66 17 108/50 L 98 Temperature: Afebrile Blood Pressure: Hypotensive Pulse: Regular Respiratory Rate: Normal Appearance: Positive for: Non-Toxic Pain Distress: None Mental Status: No: Agitated, Lethargic Medical Decision Making ED Course and Treatment: 11/28/16 22:49 Impression: An 81 year old female, with dementia, sent from rehab outpatient for increased lethargy. On physical exam, patient is responsive to verbal and tactile stimuli. Patient following commands without difficulties; no focal and neurological deficits. Abdomen normal, colostomy bag with liquid stool. Differential Diagnosis include but are not limited to: sepsis vs. dehydration vs. electrolyte imbalance Plan: -- EKG -- CT head w/o contrast -- chest xray -- labs -- IV fluids -- Urinalysis -- Reassess and disposition Progress Notes: EKG: Ordered, reviewed, and independently interpreted the EKG. Rate : 60 BPM Rhythm : NSR Interpretation : Pace, No ST-segment elevations, normal intervals. Interpreted by me. Comparison : No previous EKG for comparison. CT head w/o contrast: IMPRESSION: No CT evidence of acute intracranial abnormality. Chronic changes as above. Acute infarcts/early ischemic changes may not be detectable by this modality; MRI is more sensitive in detecting acute ischemia. Dictated and Authenticated by: Evelyn Quintana MD 11/28/2016 9:47 PM Eastern Time ([place] & [place]) 11/28/16 23:23 LA elevated more fluids and abx ordered 11/29/16 00:37 Informed by nurse that he was given wrong lactic acid levels by lab Case discussed with Dr. Vargas, accepted admission to his service family aware of and agree with plan elevated K noted meds ordered - Critical Care Critical Care Minutes: 30 minutes - Lab Interpretations Microbiology Results: Microbiology Results 11/28/16 22:35 Urine Urine Culture - Final Vancomycin Resistant E.faecium Yeast Species 11/28/16 22:40 Blood-Venous Blood Culture - Preliminary NO GROWTH AFTER 48 HOURS 11/28/16 22:20 Blood-Venous Blood Culture - Preliminary NO GROWTH AFTER 48 HOURS 11/28/16 22:35 Stool C. difficile Antigen & Toxin A,B (M - Final Lab Results: 11/28/16 22:20 11/28/16 22:20 Lab Results 11/28/16 23:00: Phosphorus 6.0 H, Magnesium 2.0 11/28/16 22:35: Urine Color Yellow, Urine Appearance Cloudy, Urine pH 6.0, Ur Specific [place] 1.025, Urine Protein 30 H, Urine Glucose (UA) Negative, Urine Ketones Negative, Urine Blood Trace-lysed H, Urine Nitrate Negative, Urine Bilirubin Negative, Urine Urobilinogen 0.2, Ur Leukocyte Esterase Moderate H, Urine RBC Negative, Urine WBC 1 - 3, Ur Epithelial Cells 0 - 2, Urine Bacteria Many, Urine Other Uyeast 11/28/16 22:20: Sodium 140, Chloride 113 H, Potassium 6.0 H* D, Carbon Dioxide 20 L, Anion Gap 13, BUN 75 H, Creatinine 2.0 H, Est GFR ( Amer) 29, Est GFR (Non-Af Amer) 24, Random Glucose 103, Calcium 8.4, Total Bilirubin 0.6, AST 37, ALT 64 H, Alkaline Phosphatase 410 H, Total Protein 6.3, Albumin 2.7 L, Globulin 3.6, Albumin/Globulin Ratio 0.8 L, Lipase 727 H 11/28/16 22:20: pO2 97 H, VBG pH 7.08 L*, VBG pCO2 68.0 H*, VBG HCO3 20.2 L, VBG Total CO2 22.3, VBG O2 Sat (Calc) 97.0 H, VBG Base Excess -10.8 L, VBG Potassium 6.2 H*, Sodium 139.0, Chloride 116.0 H, Glucose 109 H, Lactate 1.1, FiO2 21.0, Venous Blood Potassium 6.2 H* 11/28/16 22:20: PT 11.2, INR 1.04, APTT 24.6 11/28/16 22:20: WBC 12.2 H, RBC 3.68, Hgb 11.9 L, Hct 38.7, MCV 105.2 H, MCH 32.3, MCHC 30.7 L, RDW 21.9 H, Plt Count 303, MPV 11.6 H, Gran % 79.8 H, Lymph % (Auto) 11.8 L, [place] % (Auto) 7.9 H, Eos % (Auto) 0.5 L, Baso % (Auto) 0.0, Gran # 9.70 H, Lymph # 1.4, [place] # 1.0 H, Eos # 0.1, Baso # 0.00 I have reviewed the lab results: Yes - RAD Interpretation Radiology Orders: 11/28/16 20:39 HEAD W/O CONTRAST [CT] Stat CHEST PORTABLE [RAD] Stat - Medication Orders Current Medication Orders: Aspirin (Aspirin Chewable) 81 mg PO DAILY [facility] Last Admin: 12/01/16 10:37 Dose: 81 mg Atenolol (Tenormin) 12.5 mg PO BID [facility] Last Admin: 12/01/16 10:38 Dose: 12.5 mg Cholecalciferol (Vitamin D) 2,000 iu PO DAILY [facility] Last Admin: 12/01/16 10:37 Dose: 2,000 iu Clonazepam (Klonopin) 4 mg PO HS [facility] PRN Reason: Protocol Last Admin: 11/30/16 21:37 Dose: Not Given Non-Admin Reason: Patient Lethargic Diltiazem HCl (Cardizem) 30 mg PO TID [facility] Last Admin: 11/29/16 09:47 Dose: 30 mg Doxycycline Hyclate (Doryx) 100 mg PO Q12 [facility] PRN Reason: Protocol Stop: 12/08/16 10:01 Last Admin: 12/01/16 10:39 Dose: 100 mg Furosemide (Lasix) 40 mg IVP Q12 [facility] Last Admin: 12/01/16 10:36 Dose: 40 mg Home Med (Home Med) 1 unit PO DAILY [facility] Last Admin: 11/30/16 10:07 Dose: Tigecycline 50 mg/ Sodium (Chloride) 100 mls @ 100 mls/hr IVPB Q12 [facility] PRN Reason: Protocol Stop: 12/01/16 12:59 Levalbuterol HCl (Xopenex) 0.63 mg IH [id number] [facility] Last Admin: 12/01/16 07:30 Dose: 0.63 mg Lorazepam (Ativan) 0.5 mg PO BID [facility] PRN Reason: Protocol Last Admin: 12/01/16 10:39 Dose: 0.5 mg Re-Assess: Reassess Psych Meds Document 12/01/16 11:39 ST (Rec: 12/01/16 11:39 [id number]) Reassess Psych Med Effective Mupirocin (Bactroban Ointment) 0.5 gm TOP TID [facility] Last Admin: 12/01/16 10:57 Dose: 1 appl Pantoprazole Sodium (Protonix Ec Tab) 40 mg PO 0630 [facility] Last Admin: 12/01/16 06:14 Dose: Rivastigmine (Exelon Cap) 4.5 mg PO BID [facility] Last Admin: 12/01/16 10:37 Dose: 4.5 mg Ropinirole HCl (Requip) 8 mg PO HS [facility] Last Admin: 11/30/16 22:25 Dose: 8 mg Discontinued Medications Albuterol Sulfate (Albuterol 0.5% Inhal Rosa (2.5 Mg/0.5 Ml) Ud) 2.5 mg IH STAT STA Stop: 11/28/16 23:57 Last Admin: 11/29/16 00:41 Dose: 2.5 mg Albuterol Sulfate (Albuterol 0.5% Inhal Rosa (5 Mg/ Ml) 20 Ml) 10 mg IH STAT STA Stop: 11/29/16 05:30 Last Admin: 11/29/16 21:54 Dose: Dextrose (Dextrose 50% Inj) 100 ml IVP STAT STA Stop: 11/29/16 00:35 Last Admin: 11/29/16 00:50 Dose: 100 ml Dextrose (Dextrose 50% Inj) 50 ml IVP STAT STA Stop: 11/29/16 05:30 Last Admin: 11/29/16 05:45 Dose: 50 ml Dextrose (Dextrose 50% Inj) 50 ml IVP ONCE ONE Stop: 11/30/16 09:51 Last Admin: 11/30/16 10:00 Dose: 50 ml Furosemide (Lasix) 40 mg IVP ONCE ONE Stop: 11/29/16 13:48 Last Admin: 11/29/16 15:06 Dose: 40 mg Furosemide (Lasix) 20 mg IVP ONCE ONE Stop: 11/29/16 23:11 Last Admin: 11/29/16 23:22 Dose: 20 mg Furosemide (Lasix) 40 mg IVP ONCE ONE Stop: 11/30/16 11:56 Last Admin: 11/30/16 12:15 Dose: 40 mg Sodium Chloride (Sodium Chloride 0.9%) 500 mls @ 1,000 mls/hr IV .Q30M STA Stop: 11/28/16 21:09 Last Admin: 11/28/16 22:30 Dose: 1,000 mls/hr Ceftriaxone Sodium (Rocephin 1 Gram Ivpb) 1 gm in 100 mls @ 200 mls/hr IV STAT [facility] PRN Reason: Protocol Stop: 11/28/16 23:42 Last Admin: 11/28/16 23:45 Dose: 200 mls/hr Sodium Chloride (Sodium Chloride 0.9%) 500 mls @ 1,000 mls/hr IV .Q30M STA Stop: 11/28/16 23:42 Last Admin: 11/28/16 23:32 Dose: 1,000 mls/hr Vancomycin HCl (Vancomycin 1gm) 1 gm in 250 mls @ 167 mls/hr IVPB STAT [facility] PRN Reason: Protocol Stop: 11/29/16 01:02 Last Admin: 11/29/16 00:39 Dose: 167 mls/hr Sodium Chloride (Sodium Chloride 0.9%) 500 mls @ 1,000 mls/hr IV .Q30M STA Stop: 11/29/16 01:02 Last Admin: 11/29/16 00:41 Dose: 1,000 mls/hr Calcium Gluconate 1,000 mg/ (Dextrose) 110 mls @ 110 mls/hr IVPB ONCE ONE Stop: 11/29/16 01:34 Last Admin: 11/29/16 02:32 Dose: 110 mls/hr Sodium Chloride (Sodium Chloride 0.9%) 500 mls @ 1,000 mls/hr IV .Q30M STA Stop: 11/29/16 01:09 Last Admin: 11/29/16 00:57 Dose: 1,000 mls/hr Sodium Chloride (Sodium Chloride 0.9%) 1,000 mls @ 100 mls/hr IV .Q10H STA Stop: 11/29/16 10:49 Last Admin: 11/29/16 01:50 Dose: 100 mls/hr Sodium Chloride (Sodium Chloride 0.9%) 500 mls @ 999 mls/hr IV .Q31M STA Stop: 11/29/16 05:52 Last Admin: 11/29/16 06:31 Dose: Sodium Chloride (Sodium Chloride 0.9%) 500 mls @ 999 mls/hr IV .Q31M STA Stop: 11/29/16 05:52 Last Admin: 11/29/16 05:53 Dose: 999 mls/hr Cefepime HCl (Maxipime 1gm) 1 gm in 100 mls @ 100 mls/hr IVPB Q12 [facility] PRN Reason: Protocol Stop: 12/08/16 10:01 Last Admin: 12/01/16 10:40 Dose: 100 mls/hr Sodium Chloride (Sodium Chloride 0.9%) 1,000 mls @ 100 mls/hr IV .Q10H [facility] Last Admin: 11/30/16 04:49 Dose: Calcium Gluconate 1,000 mg/ (Dextrose) 110 mls @ 110 mls/hr IVPB STAT STA Stop: 11/30/16 10:17 Last Admin: 11/30/16 09:30 Dose: 110 mls/hr Heparin Sodium (Porcine) (Heparin 1000 Units/500 Ml Ns) Confirm Administered Dose 500 mls @ ud IV .STK-MED ONE Stop: 12/01/16 08:48 Insulin Human Regular (Humulin R) 10 units IV STAT [facility] Stop: 11/29/16 00:35 Last Admin: 11/29/16 00:56 Dose: 10 units Lidocaine HCl (Lidocaine 2% 20ml Vial) Confirm Administered Dose 20 ml .ROUTE .STK-MED ONE Stop: 12/01/16 08:48 Sodium Bicarbonate (Sodium Bicarbonate (8.4%) 50 Meq Syringe) 50 meq IVP STAT STA Stop: 11/29/16 05:30 Last Admin: 11/29/16 05:45 Dose: 50 meq Sodium Polystyrene Sulfonate (Kayexalate Oral Susp) 30 gm PO STAT [facility] Stop: 11/28/16 23:57 Last Admin: 11/29/16 00:41 Dose: 30 gm Sodium Polystyrene Sulfonate (Kayexalate Oral Susp) 30 gm PO STAT [facility] Stop: 11/29/16 05:30 Last Admin: 11/29/16 05:44 Dose: 30 gm Sodium Polystyrene Sulfonate (Kayexalate Oral Susp) 30 gm PO STAT [facility] Stop: 11/30/16 09:18 Last Admin: 11/30/16 09:30 Dose: 30 gm - Scribe Statement Lesley Zafar All medical record entries made by the Julia were at my direction and personally dictated by me. I have reviewed the chart and agree that the record accurately reflects my personal performance of the history, physical exam, medical decision making, and the department course for this patient. I have also personally directed, reviewed, and agree with the discharge instructions and disposition. Disposition/Present on Arrival - Present on Arrival Any Indicators Present on Arrival: No History of DVT/PE: No History of Uncontrolled Diabetes: No Urinary Catheter: No History of Decub. Ulcer: No History Surgical Site Infection Following: None - Disposition Have Diagnosis and Disposition been Completed?: Yes Diagnosis: Hyperkalemia Disposition: HOSPITALIZED Disposition Time: 00:37 Patient Plan: Admission Patient Problems: Current Active Problems Problem Status Onset Acute hypercapnic respiratory failure Acute Hyperkalemia Acute SIRS (systemic inflammatory response syndrome) Acute Condition: FAIR
[2016-11-28 22:47] LABS: INR 1.04 (0.93-1.08); PARTIAL THROMBOPLASTIN TIME 24.6 Seconds (23.7-30.8)
[2016-11-28 22:58] LABS: ALB/GLOB RATIO 0.8 (1.1-1.8); BILIRUBIN,TOTAL 0.6 mg/dL (0.2-1.3); CALCIUM 8.4 mg/dL (8.4-10.5); TOTAL PROTEIN 6.3 g/dL (5.8-8.3)
[2016-11-28 23:02] LABS: URINE BILIRUBIN NEGATIVE (NEGATIVE); URINE BLOOD TRACE-LYSED (NEGATIVE); URINE GLUCOSE (UA) NEGATIVE (NEGATIVE); URINE KETONE NEGATIVE (NEGATIVE); URINE LEUKOCYTE ESTERASE MODERATE Leu/uL (NEGATIVE); URINE PROTEIN 30 mg/dL (<30 mg/dL); URINE UROBILINOGEN 0.2 E.U./dL (<1 E.U./dL)
[2016-11-28 23:03] LABS: URINE APPEARANCE CLOUDY (CLEAR); URINE COLOR YELLOW (YELLOW)
[2016-11-28 23:10] LABS: URINE BACTERIA MANY (NEG); URINE EPITHELIAL CELLS 0 - 2 /hpf (0-5); URINE RBC NEGATIVE /hpf (0-2)
[2016-11-28] MEDS ORDERED: cefTRIAXone 1 gm 1 GM/100 ML BAG IV STA (23:13)
[2016-11-28 23:18] LABS: VENOUS BLOOD GAS BASE EXCESS -10.8 mmol/L (0.0-2.0); VENOUS BLOOD PH 7.08 (7.32-7.43)
[2016-11-28] MEDS ORDERED: Vancomycin 1gm in NS 250ml 1 GM/250 ML BAG IVPB STA (23:33)
[2016-11-28] MEDS ORDERED: Sod Polystyrene Sulf 15 gm/60 ml Oral Susp PO STA (23:56)
[2016-11-28] MEDS ORDERED: Albuterol 0.5% Inhal Sol (2.5 mg/0.5 ml) UD IH STA (23:56)
[2016-11-29] MEDS ORDERED: Sodium Chloride 0.9% 500 ML IV STA ×4 (00:33→05:24)
[2016-11-29] MEDS ORDERED: Dextrose 50% SYRINGE Inj (50 ml) IVP STA ×2 (00:34→05:29)
[2016-11-29] MEDS ORDERED: Insulin Regular 1 UNITS/0.01 ML ML IV STA (00:34)
[2016-11-29] MEDS ORDERED: Sodium Chloride 0.9% 1,000 ML IV STA (00:50)
--- NOTE | 2016-11-29 04:53 | CP.PCM.PN ---
Subjective - Date & Time of Evaluation Date of Evaluation: 11/29/16 Time of Evaluation: 04:51 - Subjective Subjective: Blood was drawn from right antecubital area for CMP. Earlier warming blanket was ordered for temp of 95.7*F after reviewing chart. Patient is alert, awake, not in distress.BP 111/54 HR-81/min. Objective - Vital Signs/Intake and Output Vital Signs (last 24 hours): Temp Pulse Resp BP Pulse Ox 95.7 F L 81 18 111/54 L 91 L 11/29/16 02:42 11/29/16 02:42 11/29/16 02:42 11/29/16 02:42 11/29/16 01:25 - Medications Medications: Current Medications Aspirin (Aspirin Chewable) 81 mg PO DAILY [facility] Atenolol (Tenormin) 12.5 mg PO BID [facility] Cholecalciferol (Vitamin D) 2,000 iu PO DAILY [facility] Clonazepam (Klonopin) 4 mg PO HS [facility] PRN Reason: Protocol Diltiazem HCl (Cardizem) 30 mg PO TID [facility] Home Med (Home Med) 1 unit PO DAILY [facility] Sodium Chloride (Sodium Chloride 0.9%) 1,000 mls @ 100 mls/hr IV .Q10H STA Stop: 11/29/16 10:49 Last Admin: 11/29/16 01:50 Dose: 100 mls/hr Levalbuterol HCl (Xopenex) 0.63 mg IH [id number] [facility] Lorazepam (Ativan) 0.5 mg PO BID [facility] PRN Reason: Protocol Mupirocin (Bactroban Ointment) 0.5 gm TOP TID [facility] Pantoprazole Sodium (Protonix Ec Tab) 40 mg PO 0630 [facility] Rivastigmine (Exelon Cap) 4.5 mg PO BID [facility] Ropinirole HCl (Requip) 8 mg PO HS [facility] - Labs Labs: PT 11.2 Seconds (9.9-11.8) 11/28/16 22:20 INR 1.04 (0.93-1.08) 11/28/16 22:20 APTT 24.6 Seconds (23.7-30.8) 11/28/16 22:20
[2016-11-29 04:59] LABS: ALB/GLOB RATIO 0.7 (1.1-1.8); BILIRUBIN,TOTAL 0.6 mg/dL (0.2-1.3); CALCIUM 7.8 mg/dL (8.4-10.5); POTASSIUM 5.5 mmol/L (3.6-5.0); TOTAL PROTEIN 6.3 g/dL (5.8-8.3)
[2016-11-29] MEDS: Levalbuterol 0.63 MG/3 ML Inhal Soln UD IH SCH ×4 (05:00→20:30)
[2016-11-29] MEDS ORDERED: Albuterol 0.5% Inhal Sol (5 mg/ ml) 20 ml IH STA (05:29)
[2016-11-29] MEDS ORDERED: Sod Polystyrene Sulf 15 gm/60 ml Oral Susp PO STA (05:29)
[2016-11-29] MEDS ORDERED: Sodium Bicarbonate (8.4%) 50 Meq Syringe IVP STA (05:29)
[2016-11-29] MEDS ORDERED: Albuterol 0.5% Inhal Sol (2.5 mg/0.5 ml) UD IH STA (05:38)
[2016-11-29] MEDS: Pantoprazole 40 mg EC Tab PO SCH (06:39)
--- NOTE | 2016-11-29 07:05 | RAD ---
HISTORY: cough COMPARISON: No prior. FINDINGS: LUNGS: No active pulmonary disease. Severely limited by poor inspiration and kyphosis. PLEURA: No significant pleural effusion identified, no pneumothorax apparent. CARDIOVASCULAR: Normal. OSSEOUS STRUCTURES: No significant abnormalities. VISUALIZED UPPER ABDOMEN: Normal. OTHER FINDINGS: None. IMPRESSION: Improvement in pulmonary edema. Severely limited exam.
[2016-11-29] MEDS ORDERED: Home Med 1 UNIT PO SCH (10:00)
[2016-11-29] MEDS: Cefepime 1gm in NS 100ml 1 GM/100 ML BAG IVPB SCH ×2 (10:40→22:10)
--- NOTE | 2016-11-29 11:10 | CON ---
DATE: 11/29/2016 LOCATION: The patient was seen earlier today in 272, bed 2. CHIEF COMPLAINT: Weakness times several days. HISTORY OF PRESENT ILLNESS: This is an 81-year-old female who was recently discharged from the [facility]. Patient with dementia and was discharged to rehab and was admitted with change of mental status and weakness x 1 day duration. The patient is a poor historian. The patient had hypothermic with m ild shortness of breath, but no chest pain reported. No abdominal pain, diarrhea or constipation. N o dysuria or frequency and no bright red blood per rectum. PAST MEDICAL HISTORY: Significant for colovesicular fistula, atrial fibrillation, urinary retention, anxiety, breast cancer, hypertension, dementia, kidney disease, pneumothorax, urinary tract infectio n. PAST SURGICAL HISTORY: Significant for a pacemaker, left mastectomy in 1993, hysterectomy. ALLERGIES: The patient has no known allergies. MEDICATIONS AT HOME: Reveal the patient to be on Klonopin, Protonix, Ativan, and Lasix. PHYSICAL EXAMINATION: GENERAL: The patient is in bed appearing chronically ill, debilitated, end-stage. VITAL SIGNS: Temperature of 95.7, heart rate of 87, respiratory rate of 18, blood pressure is 111/50 . It was down to 91/46 earlier. HEENT: Unremarkable. NECK: Supple. LUNGS: Have decreased breath sounds. HEART: Normal S1, S2. ABDOMEN: Soft, nontender. LABORATORY EXAMINATION: Reveals the patient's white count of 12,200, hemoglobin of 11, BUN of 71, cr eatinine is 2.0. LFTs are elevated, alkaline phosphatase is elevated. The urinalysis is 1-3 WBCs an d yeast. Hepatitis profile is negative. Microbiology reveals the patient did have a VRE urinary tra ct infection and an Escherichia coli urinary tract infection approximately a month ago, which was grossman sensitive. The patient had a CT scan of the head yesterday, which was negative and a chest x-ray [facility] was negative. Dr. Dickey's note is reviewed. Dr. Alek Quiroga's Emergency Room chart is revi ewed. 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 1. Systemic inflammatory response syndrome with probable acute congestive heart failure, or volume o verload versus aspiration pneumonia, although chest x-ray is reported to be negative. We will order a procalcitonin and grossman cultures including blood cultures, urine cultures. BNP has been ordered and the patient was given dose of vancomycin and ceftriaxone. We will make further recommendations upon the availability of grossman cultures, blood, urine and sputum, and procalcitonin and treat the patient wi Maxipime, adjusted for renal failure. Overall, prognosis is quite poor for this patient who has m ulti-organ failure and no quality of life. Should consider hospice setting. Austen Bradford MD cc: [phone] TT: 11/29/2016 11:10:23 Confirmation # [id number] Dictation # [id number] william
--- NOTE | 2016-11-29 11:16 | CP.PCM.CON ---
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), discharged last week to rehab after admission for UTI sepsis secondary to colovesical fistula, with hospital course complicated by acute renal failure (received HD x 1), hypercapneic respiratory failure, tachy-mai syndrome (pacemaker placed, small pneumothorax as complication); now admitted with increasing lethargy for 2 days prior to presentation; nephrology being consulted for hyperkalemia; Per patient's family, she had been doing well for 2 days after d/c from hospital but subsequently with increasing lethargy and drowsiness; not eating well; functional status had already been limited with patient unable to walk; urine output reportedly clear but with some residual sediment still seen; Patient currently denies any shortness of breath, no pain; denies any fevers/ chillls; Review of Systems - Constitutional Constitutional: As Per HPI. absent: Chills, Fever - EENT Eyes: absent: Blurred Vision, Change in Vision Ears: absent: Decreased Hearing, Ear Pain Nose/Mouth/Throat: absent: Nasal Discharge, Sore Throat - Cardiovascular Cardiovascular: Leg Edema. absent: Chest Pain, Palpitations - Respiratory Respiratory: Cough. absent: Dyspnea - Gastrointestinal Gastrointestinal: absent: Abdominal Pain Additional comments: watery stool in ostomy bag, unchanged; - Genitourinary Additional comments: Ramirez has been in place; - Musculoskeletal Musculoskeletal: Back Pain - Integumentary Additional comments: sacral decubitus ulcer present; - Neurological Neurological: As Per HPI. absent: Dizziness, Headaches - Hematologic/Lymphatic Additional comments: No bleeding reported; Past Patient History - Infectious Disease Hx of Infectious Diseases: None - Past Medical History & Family History Past Medical History?: Yes Pertinent Family History: Mother with heart disease, father with stroke, sister with htn; - Past Social History Smoking Status: Never Smoked - CARDIAC Hx Cardiac Disorders: Yes Hx Cardia Arrhythmia: Yes (Atrial Fibrillation) Hx Congestive Heart Failure: Yes Hx Hypertension: Yes Hx Pacemaker: Yes Hx Peripheral Edema: Yes - PULMONARY Hx Respiratory Disorders: No - NEUROLOGICAL Hx Dementia: Yes - HEENT Hx HEENT Problems: No - RENAL Hx Renal Failure: Yes - ENDOCRINE/METABOLIC Hx Endocrine Disorders: No Hx Diabetes Mellitus Type 1: No Hx Diabetes Mellitus Type 2: No Hx Hypothyroidism: No - HEMATOLOGICAL/ONCOLOGICAL Hx Chemotherapy: Yes - INTEGUMENTARY Hx Dermatological Problems: Yes Other/Comment: MULTIPLE PUSTULES AND BROWN PLAQUES TO FACE AND BACK. - MUSCULOSKELETAL/RHEUMATOLOGICAL Hx Falls: Yes - GASTROINTESTINAL Hx Colostomy: Yes Other/Comment: Hx. rectourethral fistula - GENITOURINARY/GYNECOLOGICAL Hx Incontinence: Yes Hx Urinary Tract Infection: Yes - PSYCHIATRIC Hx Substance Use: (patient unable to answer) - SURGICAL HISTORY Hx Surgeries: Yes Hx Hysterectomy: Yes Hx Mastectomy: Yes - ANESTHESIA Hx Anesthesia: Yes Hx Anesthesia Reactions: No Hx Malignant Hyperthermia: No Meds Allergies/Adverse Reactions: Allergies Allergy/AdvReac Type Severity Reaction Status Date / Time No Known Allergies Allergy Verified 11/12/16 21:15 - Medications Medications: Current Medications Aspirin (Aspirin Chewable) 81 mg PO DAILY [facility] Last Admin: 11/29/16 09:48 Dose: 81 mg Atenolol (Tenormin) 12.5 mg PO BID [facility] Last Admin: 11/29/16 09:48 Dose: 12.5 mg Cholecalciferol (Vitamin D) 2,000 iu PO DAILY [facility] Last Admin: 11/29/16 09:48 Dose: 2,000 iu Clonazepam (Klonopin) 4 mg PO HS [facility] PRN Reason: Protocol Diltiazem HCl (Cardizem) 30 mg PO TID [facility] Last Admin: 11/29/16 09:47 Dose: 30 mg Doxycycline Hyclate (Doryx) 100 mg PO Q12 [facility] PRN Reason: Protocol Stop: 12/08/16 10:01 Last Admin: 11/29/16 10:39 Dose: 100 mg Home Med (Home Med) 1 unit PO DAILY [facility] Cefepime HCl (Maxipime 1gm) 1 gm in 100 mls @ 100 mls/hr IVPB Q12 [facility] PRN Reason: Protocol Stop: 12/08/16 10:01 Last Admin: 11/29/16 10:40 Dose: 100 mls/hr Levalbuterol HCl (Xopenex) 0.63 mg IH [id number] [facility] Last Admin: 11/29/16 08:03 Dose: 0.63 mg Lorazepam (Ativan) 0.5 mg PO BID [facility] PRN Reason: Protocol Last Admin: 11/29/16 09:50 Dose: 0.5 mg Mupirocin (Bactroban Ointment) 0.5 gm TOP TID [facility] Pantoprazole Sodium (Protonix Ec Tab) 40 mg PO 0630 [facility] Last Admin: 11/29/16 06:39 Dose: 40 mg Rivastigmine (Exelon Cap) 4.5 mg PO BID [facility] Last Admin: 11/29/16 09:41 Dose: 4.5 mg Ropinirole HCl (Requip) 8 mg PO HS [facility] Physical Exam - Constitutional Appears: Non-toxic, No Acute Distress Additional comments: Lethargic but arousable and able to respond verbally appropriately; - Head Exam Head Exam: ATRAUMATIC, NORMAL INSPECTION, NORMOCEPHALIC - Eye Exam Eye Exam: Normal appearance. absent: Scleral icterus - ENT Exam ENT Exam: Mucous Membranes Moist - Neck Exam Neck exam: Positive for: Normal Inspection - Respiratory Exam Respiratory Exam: Decreased Breath Sounds Additional comments: Decreased breath sounds bilaterally, L>>R - Cardiovascular Exam Cardiovascular Exam: REGULAR RHYTHM, +S1. absent: Diastolic murmur, Gallop, Systolic Murmur - GI/Abdominal Exam GI & Abdominal Exam: Soft. absent: Distended, Tenderness - Exam Exam: absent: Bladder Distension - Extremities Exam Extremities exam: Positive for: normal capillary refill, pedal pulses present Additional comments: Makedly edematous bilateral UE and LE - Neurological Exam Neurological exam: Alert Additional comments: Decreased strength in LE; - Psychiatric Exam Psychiatric exam: Normal Affect, Normal Mood Results - Vital Signs Recent Vital Signs: Last Vital Signs Temp 95.8 F L 11/29/16 06:00 Pulse 75 11/29/16 09:48 Resp 18 11/29/16 06:00 BP 100/50 L 11/29/16 09:48 Pulse Ox 93 L 11/29/16 06:00 - Labs Result Diagrams: 11/29/16 12:10 11/29/16 12:00 Labs: Laboratory Results - last 24 hr 11/29/16 04:40 Sodium 142 Potassium 5.5 H Chloride 115 H Carbon Dioxide 18 L Anion Gap 15 BUN 71 H Creatinine 1.9 H Est GFR ( Amer) 31 Est GFR (Non-Af Amer) 25 Random Glucose 142 H Calcium 7.8 L Total Bilirubin 0.6 AST 32 ALT 60 H Alkaline Phosphatase 346 H Total Protein 6.3 Albumin 2.6 L Globulin 3.7 Albumin/Globulin Ratio 0.7 L Assessment & Plan (1) Acute renal failure Assessment and Plan: MARCIANO on CKD II-IIIa; patient with ATN on recent admission in the setting of hypotension; renal function had improved with serum creatnine close to level it was on d/c; current lack of further improvement may be due to to renovascular/ cardiorenal component in setting of persistently low/normal BP and known CHF, as well as ongoing sepsis; Hyperkalemia improved with kayexalate; volume status difficult to assess as patient markedly edematous on exam but may be intravascularly volume depleted with low/normal BP and no JVD appreciated; would benefit from echo to assess for RV overload in which case patient would benefit from diuresis rather than volume repletion; also, patient seemed to benefit from ultrafiltration with HD session on last admission; -follow repeat labs -low K diet -kayexalate prn -continue IVF for now (especially with concern for sepsis); can also do forced diuresis with IV lasix 40 mg prn for hyperkalemia while keeping positive sodium balance with IVF); Status: Acute (2) Acute hypercapnic respiratory failure Assessment and Plan: With ensuing encephalopathy, possibly due to PNA and worsened by pleural effusions; causing marked respiratory acidosis; -agree with CT chest -start BIPAP with care to not open up eschar on bridge of nose Status: Acute (3) SIRS (systemic inflammatory response syndrome) Assessment and Plan: Possible PNA; agree with further imaging (CT chest/abd/pelvis) as ordered by primary team; started on cefepime 1g q12h and doxycycline by ID service; received dose of vanco in ED; -consider decreasing cefepime to q24h dosing for CrCl ~25 ml/min; no renal dose adjustment needed for doxycycline Status: Acute (4) HTN (hypertension) Assessment and Plan: Has been bordeline hypotensive during previous admission as well; persistently low diastolic BP likely worsened by sepsis; started on cardizem and atenolol at that time for new onset afib w/ RVR; however, rate had mostly been controlled despite frequently having doses held due to borderline hypotension; -hold cardizem, continue atenolol 12.5 mg bid as tolerated -keep MAP > 65-70 to allow for adequate renal perfusion; Status: Acute (5) Hyperkalemia Assessment and Plan: Moderately elevated K, secondary to renal insufficiency; renal function is relatively stable despite MARCIANO and patient is non-oliguric, so hyperkalemia should respond to medical management as mentioned above; changing diet to low K; Status: Acute (6) Atrial fibrillation Assessment and Plan: Rate controlled; not on AC; recommend to avoid excessive meds as this will cause hypotension; Status: Acute
[2016-11-29 12:11] LABS: ADD MANUAL DIFF? NO; BASO # 0.01 K/mm3 (0.0-2.0); BASO % 0.1 % (0.0-3.0); EOS % 0.3 % (1.5-5.0); GRAN # 10.09 (1.4-6.5); GRAN % 84.4 % (50.0-68.0); HEMATOCRIT 37.3 % (36.0-48.0); MEAN CELL VOLUME 107.5 fL (80.0-105.0); MEAN CORPUSCULAR HEMOGLOBIN 32.3 pg (25.0-35.0); MONO # 0.9 (0.1-0.6); MONO % 7.2 % (1.0-6.0); PLATELET COUNT 229 10^3/uL (120.0-450.0); RED CELL DISTRIBUTION WIDTH 21.7 % (11.5-14.5)
[2016-11-29 12:18] LABS: ALB/GLOB RATIO 0.8 (1.1-1.8); BILIRUBIN,TOTAL 0.5 mg/dL (0.2-1.3); CALCIUM 7.7 mg/dL (8.4-10.5); POTASSIUM 5.5 mmol/L (3.6-5.0)
[2016-11-29] MEDS: SELENIUM 200 MCG PO SCH (12:25)
--- NOTE | 2016-11-29 14:43 | HP ---
HISTORY OF PRESENT ILLNESS: The patient is an 81-year-old female who was recently discharged to [facility] under service with DNR/ DNI and DNH, but in the last 2 days, according to the patient's and son , patient has been lethargic, less responsive, poor p.o. intake, and not doing well and failure to thrive. The patient's family revoked the DNH and patient was transferred from [facility] to [facility] where patient was found to be in worst acute renal failure with nonhemolyzed hyperkalemia and leukocytosis and hypotensive and hypothermic. The patient was evaluated in the Emergency Room and the patient is presently being admitted after all above. The patient is seen in bed in 272, bed 2 after patient was evaluated in the Emergency Room. At this time, the patient is lying in the bed. The patient is awake, responsive. The patient has a skin tear on the nose secondary to the BiPAP. The patient is alert at this time. The patient is on Melissa hugger blanket because of hypothermia. The patient's and son at bedside. The patient's overall prognosis is guarded to poor, which has been explained to the patient's son and the on multiple occasions during multiple discussions during this hospitalization and acute care hospitalization. CODE STATUS: DNR/DNI DNH REVOKED BY FAMILY ALLERGIES: None. HEIGHT: 4 feet 10. WEIGHT: 110. BMI: 23. ALLERGIES: None. HOME MEDICATIONS: Os-Anibal, vitamin D daily, selenium 50 mcg daily, Boost daily, calcium carbonate, Tums 500 mg p.r.n., vitamin E 400 units daily, Centrum Silver 1 tablet daily, Ativan 0.5 mg twice a day, Vytorin 10-80 daily, Klonopin 4 mg daily, Ativan 0.5 mg twice a day, Klonopin 2-4 mg daily, Digoxin 0.125 daily, aspirin 81 mg daily, Demadex 20 mg daily, Imdur 30 mg daily, Imdur 30 mg daily, Requip 8 mg daily, Cozaar 50 mg twice a day, Coreg 12.5 mg twice a day, Exelon 4.5 mg twice a day. SOCIAL HISTORY: Negative for smoking, negative for alcohol. Negative for drug use. REVIEW OF SYSTEMS: A 13-system review is positive as dictated above. PAST MEDICAL AND SURGICAL HISTORY: History of syncope, history of left bundle branch block, history of left axis deviation, history of left breast carcinoma, left mastectomy, history of dementia, history of congestive heart failure, history of questionable congestive heart failure, history of hypertension, history of angina, history of anxiety disorder, history of dyslipidemia, history of colovesicular and colovaginal fistula, history of left mastectomy, history of anemia, history of diverticulosis, history of pneumonia, history of dyslipidemia, history of diverticulosis, diverticulitis, history of osteopenia, osteoporosis, history of Parkinson's disease, history of anxiety disorder, history of depression, history of questionable aspiration pneumonia, history of chronic kidney disease stage IV, history of colovesicular vesicular and colovaginal fistula, history of right bundle branch block, history of left anterior hemiblock, history of fecal retention, history of aspiration pneumonia , history of leukocytosis, history of sepsis, history of Enterococcus faecalis urinary tract infection, history of mild hyperkalemia, history of digoxin toxicity, history of Enterococcus faecalis urinary tract infection with pyuria, hematuria, proteinuria, bacteriuria, history of syncope, history of bradyarrhythmias with high grade AV block versus complete heart block and asystole for more than 6 seconds probably secondary to Coreg and digoxin, history of left anterior hemiblock, history of left bundle branch block versus intraventricular conduction delay, history of multiple cardiac pauses, history of asymptomatic asystole, history of left ventricular ejection fraction of 43%, history of moderate mitral regurgitation, history of moderate aortic regurgitation, history of aortic sclerosis, history of non-ST elevation myocardial infarction, history of Parkinson's disease, history of dementia, history of questionable nonsustained ventricular tachycardia, history of hypertriglyceridemia, history of hypertension, 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 The patient's past medical history is significant for normocytic anemia, history of hematuria and pyuria and bacteriuria, history of digoxin toxicity, history of dilated cardiomyopathy with left ventricular ejection fraction of 33%, history of left ventricular ejection fraction of 33%, history of mitral regurgitation, history of questionable dilated cardiomyopathy, history of MUGA scan done in 01/2014 showing ejection fraction of 33%. 1. Altered mental status, etiology undetermined. 2. Acute renal failure and acute kidney injury and prerenal kidney injury. 3. Questionable and possible urinary tract infection. 4. Recurrent fall and gait dysfunction. 5. History of dementia. 6. Questionable swallowing and feeding dysfunction. 7. Leukocytosis with granulocytosis. 8. Normocytic anemia. 9. Hyperuricemia. 10. Hyperphosphatemia. 11. Transaminitis. 12. Elevated BNP with history of congestive heart failure. 13. Hematuria, pyuria, bacteriuria. 14. Left bundle branch block and left axis deviation. 15. Generalized osteopenia and thoracolumbar spondylosis with old healed left rib fracture. 16. Status post mastectomy for left breast carcinoma. 17. Gait dysfunction. 18. Recurrent falls. 19. 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 20. Questionable cystitis with thickened urinary bladder wall. 21. Questionable echogenic urinary bladder mass. 22. History of dementia. 23. History of hypovitaminosis D, history of anxiety, history of dementia, history of congestive heart failure, history of angina, history of dementia. 24. History of colovesicular and colovaginal fistula. 1. Severe gait dysfunction, deconditioning and bedridden status. 2. Questionable and possible functional quadriplegia. 3. Escherichia coli urinary tract infection. 4. Acute renal failure. 5. Systemic inflammatory response syndrome versus possible sepsis secondary to Escherichia coli urinary tract infection. 6. Colovesical and colovaginal fistula. 7. History of hypertension. 8. Asymptomatic hypoxemia. 9. Normocytic iron deficiency anemia. 10. Normal potassium. 11 Acute renal failure with mild prerenal kidney injury. 12. Non-proteinuric chronic kidney disease stage III/IV. 13. Hypocalcemia. 14. Hypoalbuminemia. 15. Malnutrition. 16. History of anxiety disorder. 17. History of dementia. 18. Iron deficiency normocytic anemia. 19. History of anxiety disorder. 20. Hypovitaminosis D. 21. Hyperuricemia. 22. Deconditioning. 1. Acute renal failure. 2. Systemic inflammatory response syndrome versus possible sepsis secondary to Escherichia coli urinary tract infection. 3. Colovesicular and colovaginal fistula. 4. Acute renal failure. 5. Poor compliance. 6. Severe gait deconditioning and severe gait dysfunction and bedridden status. 7. Functional quadriplegia. 8. Transient asymptomatic hypoxemia. 9. Leukocytosis with granulocytosis. 10. Normocytic iron deficiency anemia. 11. Transient hypernatremia. 12. Acute renal failure. 13. Hyperuricemia. 14. Transaminitis. 15. . 16. Hyperuricemia. 17. Iron deficiency normocytic anemia. 18. Escherichia coli urinary tract infection with proteinuria, hematuria, bacteriuria and pyuria. 19. Sepsis secondary to Escherichia coli urinary tract infection. 20. Mild aortic stenosis. 21. Moderate aortic regurgitation, moderate mitral regurgitation and mild tricuspid regurgitation. 22. History of anxiety disorder, history of dementia, history of hypovitaminosis D and hyperuricemia. 1. Acute renal failure. 2. Questionable sepsis with leukocytosis, granulocytosis. 3. Normocytic anemia. 4. Hypertension. 5. History of dementia. 6. Leukocytosis with granulocytosis. 7. Normocytic anemia. 8. Transient hypernatremia. 9. Acute kidney injury and acute renal failure (resolving). 10. Severe gait dysfunction, deconditioning and possible functional quadriplegia. 11. Hyperuricemia. 12. Transaminitis. 13. Hyperprocalcitoninemia. 14. Hypovitaminosis D. 15. Acute renal failure and acute kidney injury. 16. Escherichia coli urinary tract infection with hematuria, pyuria, bacteriuria. 17. Systemic inflammatory response syndrome with possible sepsis secondary to Escherichia coli urinary tract infection with ____vaginal and ____ fistula. 18. Prerenal azotemia. 19. Chronic kidney disease, stage, IIIB, nonproteinuric. 20. Severe deconditioning and gait dysfunction. 21. Chronic ____, ____ fistula with Escherichia coli urinary tract infection. 22. Moderate aortic and moderate mitral regurgitation. 23. Mild mitral valve prolapse, calcified aortic valve with mild aortic stenosis and moderate aortic regurgitation and moderate mitral regurgitation and mild tricuspid regurgitation with left ventricular ejection fraction of 55%. 24. Gait dysfunction. 25. Deconditioning 26. Anxiety disorder. 27. Dementia. 28. Hypovitaminosis D. 29. Hyperuricemia. 1. Acute renal failure. 2. Questionable sepsis with leukocytosis and granulocytosis. 3. Normocytic anemia. 4. Questionable hemorrhagic cystitis. 5. Questionable hemorrhagic cystitis with intrinsic mural and perivesicular abnormalities and dependent echogenic material debris in the bladder. 6. Left bundle-branch block and left axis deviation. 7. Left lower lung pleural thickening. 8. Cardiomegaly. 9. Sigmoid diverticulosis. 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 11. 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 12. Status post hysterectomy. 13. Sigmoid diverticulosis. 14. Leukocytosis with granulocytosis. 15. Normocytic anemia. 16. Hyponatremia. 17. Slow-resolving acute renal failure. 18. Hyperuricemia. 19. History of dementia. 20. Deconditioning. 21. Gait dysfunction. 22. Recurrent fall. 23. Questionable functional quadriplegia. 24. Hypovitaminosis D. 25. History of dyslipidemia. 26. History of angina, history of hypertension, history of dementia. 1. Altered mental status, etiology undetermined. 2. Acute renal failure and acute kidney injury and prerenal kidney injury. 3. Questionable and possible urinary tract infection. 4. Recurrent fall and gait dysfunction. 5. History of dementia. 6. Questionable swallowing and feeding dysfunction. 7. Leukocytosis with granulocytosis. 8. Normocytic anemia. 9. Hyperuricemia. 10. Hyperphosphatemia. 11. Transaminitis. 12. Elevated BNP with history of congestive heart failure. 13. Hematuria, pyuria, bacteriuria. 14. Left bundle branch block and left axis deviation. 15. Generalized osteopenia and thoracolumbar spondylosis with old healed left rib fracture. 16. Status post mastectomy for left breast carcinoma. 17. Gait dysfunction. 18. Recurrent falls. 19. 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 20. Questionable cystitis with thickened urinary bladder wall. 21. Questionable echogenic urinary bladder mass. 22. History of dementia. 23. History of hypovitaminosis D, history of anxiety, history of dementia, history of congestive heart failure, history of angina, history of dementia. 24. History of colovesicular and colovaginal fistula. 1. Recurrent urinary retention with urinary bladder distention. 2. Questionable systemic inflammatory response syndrome versus sepsis with low- grade fever of 105, tachycardia 3. Leukocytosis with granulocytosis. 4. Normocytic anemia. 5. Hypokalemia. 6. Acute kidney injury. 7. Mild hypoalbuminemia 8. Severe deconditioning, gait dysfunction and bedridden status with questionable functional quadriplegia. 9. History of dementia, depression, Parkinson's disease, history of hypertension. 10. Hypovitaminosis D. 11. Deconditioning. 1. Recurrent urinary retention with urinary bladder distention. 2. Severe deconditioning and gait dysfunction. 3. Functional quadriplegia with severe deconditioning and gait dysfunction and bedridden status. 4. Small bilateral pleural effusion and bibasilar atelectasis. 5. Questionable sigmoid colitis with mural thickening. 6. Urinary retention with distended urinary bladder with air fluid level. 7. Hypertension. 8. Tachycardia. 9. Leukocytosis with granulocytosis. 10. Questionable systemic inflammatory response syndrome. 11. Normocytic anemia. 12. Acute recurrent kidney injury. 13. 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 14. Normocytic iron deficiency anemia. 15. Chronic kidney disease stage II/III. 1. Severe deconditioning, severe gait dysfunction and possible questionable functional quadriplegia. 2. Urinary retention. 3. Colovesicular and colovaginal fistula. 4. Abdominal distention, probably secondary to urinary retention. 5. Sepsis secondary to Escherichia coli urinary tract infection and colovesicular and colovaginal fistula. 6. Hypertension. 7. Questionable ileus with constipation, fecal retention, fecal stasis. 8. Asymptomatic hypoxemia. 9. Status post acute renal failure. 10. Normocytic iron deficiency anemia. 11. Status post IV Venofer infusion. 12. Leukocytosis with granulocytosis. 13. Status post acute renal failure. 14. Hypocalcemia. 15. Mild hypoalbuminemia. 16. History of anxiety disorder, history of dementia, history of depression, history of Parkinson's disease, hypovitaminosis D. 1. Severe deconditioning and gait dysfunction. 2. Deconditioning. 3. Questionable constipation and fecal retention. 4. Asymptomatic hypoxemia. 5. Leukocytosis with granulocytosis. 6. Normocytic anemia. 7. Prerenal kidney injury. 8. Status post acute renal failure. 9. 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 10. Deconditioning. 11. Gait dysfunction. 12. Sepsis secondary to Escherichia coli urinary tract infection. 13. History of colovesicular colovaginal fistula. 14. Dementia. 15. History of Parkinson disease. 16. History of anxiety disorder. 17. History of constipation. 1. Severe deconditioning and gait dysfunction. 2. Possible functional quadriplegia. 3. Nonproteinuric chronic kidney disease stage III. 4. Acute renal failure, secondary to prerenal kidney injury (resolved). 5. Mild venous stasis of the lower extremities. 6. Sepsis with Escherichia coli urinary tract infection. 7. Rectovesical and rectovaginal fistula. 8. Deconditioning. 9. Gait dysfunction. 10. Normocytic anemia. 11. Normocytic iron deficiency anemia. 12. Leukocytosis with granulocytosis. 13. Hypocalcemia. 14. Hypokalemia. 1. Severe gait dysfunction and deconditioning and possible functional quadriplegia. 2. Sepsis secondary to Escherichia coli urinary tract infection with history of rectovaginal, rectovesical fistula. 3. Escherichia coli urinary tract infection. 4. Acute renal failure. 5. Hypoxemia. 6. Normocytic anemia. 7. Leukocytosis with granulocytosis. 8. Status post acute renal failure. 9. Hypocalcemia. 10. Mild hypoalbuminemia. 11. History of dementia, Parkinson's disease, anxiety, and possible depression. 12. Prerenal kidney injury. 13. Non-proteinuric chronic kidney disease stage III. 14. History of anxiety. 15. History of dementia, history of depression, history of hypovitaminosis D. 1. Severe deconditioning and gait dysfunction and possible bedridden status and possible functional quadriplegia. 2. Sepsis secondary to a Escherichia coli urinary tract infection with history of vaginal and rectovesical fistula. 3. Deconditioning. 4. Escherichia coli urinary tract infection. 5. Acute renal failure. 6. History of hypertension. 7. Asymptomatic hypoxemia. 8. Kyphosis of the thoracic spine. 9. Hypoalbuminemia. 10. Hypocalcemia. 11. Normocytic anemia. 12. Hypokalemia. 13. Oropharyngeal dysphagia with impulsive and unsafe eating behaviors. 14. History of anxiety disorder. 15. History of dementia. 16. History of Parkinson disease. 17. History of normocytic iron deficiency anemia. 1. Severe gait dysfunction, deconditioning and bedridden status. 2. Questionable and possible functional quadriplegia. 3. Escherichia coli urinary tract infection. 4. Acute renal failure. 5. Systemic inflammatory response syndrome versus possible sepsis secondary to Escherichia coli urinary tract infection. 6. Colovesical and colovaginal fistula. 7. History of hypertension. 8. Asymptomatic hypoxemia. 9. Normocytic iron deficiency anemia. 10. Normal potassium. 11 Acute renal failure with mild prerenal kidney injury. 12. Non-proteinuric chronic kidney disease stage III/IV. 13. Hypocalcemia. 14. Hypoalbuminemia. 15. Malnutrition. 16. History of anxiety disorder. 17. History of dementia. 18. Iron deficiency normocytic anemia. 19. History of anxiety disorder. 20. Hypovitaminosis D. 21. Hyperuricemia. 22. Deconditioning. 1. Acute renal failure. 2. Systemic inflammatory response syndrome versus possible sepsis secondary to Escherichia coli urinary tract infection. 3. Colovesicular and colovaginal fistula. 4. Acute renal failure. 5. Poor compliance. 6. Severe gait deconditioning and severe gait dysfunction and bedridden status. 7. Functional quadriplegia. 8. Transient asymptomatic hypoxemia. 9. Leukocytosis with granulocytosis. 10. Normocytic iron deficiency anemia. 11. Transient hypernatremia. 12. Acute renal failure. 13. Hyperuricemia. 14. Transaminitis. 15. . 16. Hyperuricemia. 17. Iron deficiency normocytic anemia. 18. Escherichia coli urinary tract infection with proteinuria, hematuria, bacteriuria and pyuria. 19. Sepsis secondary to Escherichia coli urinary tract infection. 20. Mild aortic stenosis. 21. Moderate aortic regurgitation, moderate mitral regurgitation and mild tricuspid regurgitation. 22. History of anxiety disorder, history of dementia, history of hypovitaminosis D and hyperuricemia. 1. Acute renal failure. 2. Questionable sepsis with leukocytosis, granulocytosis. 3. Normocytic anemia. 4. Hypertension. 5. History of dementia. 6. Leukocytosis with granulocytosis. 7. Normocytic anemia. 8. Transient hypernatremia. 9. Acute kidney injury and acute renal failure (resolving). 10. Severe gait dysfunction, deconditioning and possible functional quadriplegia. 11. Hyperuricemia. 12. Transaminitis. 13. Hyperprocalcitoninemia. 14. Hypovitaminosis D. 15. Acute renal failure and acute kidney injury. 16. Escherichia coli urinary tract infection with hematuria, pyuria, bacteriuria. 17. Systemic inflammatory response syndrome with possible sepsis secondary to Escherichia coli urinary tract infection with ____vaginal and ____ fistula. 18. Prerenal azotemia. 19. Chronic kidney disease, stage, IIIB, nonproteinuric. 20. Severe deconditioning and gait dysfunction. 21. Chronic ____, ____ fistula with Escherichia coli urinary tract infection. 22. Moderate aortic and moderate mitral regurgitation. 23. Mild mitral valve prolapse, calcified aortic valve with mild aortic stenosis and moderate aortic regurgitation and moderate mitral regurgitation and mild tricuspid regurgitation with left ventricular ejection fraction of 55%. 24. Gait dysfunction. 25. Deconditioning 26. Anxiety disorder. 27. Dementia. 28. Hypovitaminosis D. 29. Hyperuricemia. 1. Acute renal failure. 2. Questionable sepsis with leukocytosis and granulocytosis. 3. Normocytic anemia. 4. Questionable hemorrhagic cystitis. 5. Questionable hemorrhagic cystitis with intrinsic mural and perivesicular abnormalities and dependent echogenic material debris in the bladder. 6. Left bundle-branch block and left axis deviation. 7. Left lower lung pleural thickening. 8. Cardiomegaly. 9. Sigmoid diverticulosis. 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 11. 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 12. Status post hysterectomy. 13. Sigmoid diverticulosis. 14. Leukocytosis with granulocytosis. 15. Normocytic anemia. 16. Hyponatremia. 17. Slow-resolving acute renal failure. 18. Hyperuricemia. 19. History of dementia. 20. Deconditioning. 21. Gait dysfunction. 22. Recurrent fall. 23. Questionable functional quadriplegia. 24. Hypovitaminosis D. 25. History of dyslipidemia. 26. History of angina, history of hypertension, history of dementia. 1. Altered mental status, etiology undetermined. 2. Acute renal failure and acute kidney injury and prerenal kidney injury. 3. Questionable and possible urinary tract infection. 4. Recurrent fall and gait dysfunction. 5. History of dementia. 6. Questionable swallowing and feeding dysfunction. 7. Leukocytosis with granulocytosis. 8. Normocytic anemia. 9. Hyperuricemia. 10. Hyperphosphatemia. 11. Transaminitis. 12. Elevated BNP with history of congestive heart failure. 13. Hematuria, pyuria, bacteriuria. 14. Left bundle branch block and left axis deviation. 15. Generalized osteopenia and thoracolumbar spondylosis with old healed left rib fracture. 16. Status post mastectomy for left breast carcinoma. 17. Gait dysfunction. 18. Recurrent falls. 19. 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 20. Questionable cystitis with thickened urinary bladder wall. 21. Questionable echogenic urinary bladder mass. 22. History of dementia. 23. History of hypovitaminosis D, history of anxiety, history of dementia, history of congestive heart failure, history of angina, history of dementia. 24. History of colovesicular and colovaginal fistula. 1. questionable atrial fibrillation with rapid ventricular response. 2. Left anterior hemiblock. 3. Hypertensive cardiovascular disease. 4. Questionable lateral ischemic changes. 1. Recurrent urinary retention with urinary bladder distention. 2. Severe deconditioning and gait dysfunction. 3. Functional quadriplegia with severe deconditioning and gait dysfunction and bedridden status. 4. Small bilateral pleural effusion and bibasilar atelectasis. 5. Questionable sigmoid colitis with mural thickening. 6. Urinary retention with distended urinary bladder with air fluid level. 7. Hypertension. 8. Tachycardia. 9. Leukocytosis with granulocytosis. 10. Questionable systemic inflammatory response syndrome. 11. Normocytic anemia. 12. Acute recurrent kidney injury. 13. 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 14. Normocytic iron deficiency anemia. 15. Chronic kidney disease stage II/III. 1. Severe deconditioning, severe gait dysfunction and possible questionable functional quadriplegia. 2. Urinary retention. 3. Colovesicular and colovaginal fistula. 4. Abdominal distention, probably secondary to urinary retention. 5. Sepsis secondary to Escherichia coli urinary tract infection and colovesicular and colovaginal fistula. 6. Hypertension. 7. Questionable ileus with constipation, fecal retention, fecal stasis. 8. Asymptomatic hypoxemia. 9. Status post acute renal failure. 10. Normocytic iron deficiency anemia. 11. Status post IV Venofer infusion. 12. Leukocytosis with granulocytosis. 13. Status post acute renal failure. 14. Hypocalcemia. 15. Mild hypoalbuminemia. 16. History of anxiety disorder, history of dementia, history of depression, history of Parkinson's disease, hypovitaminosis D. 1. Severe deconditioning and gait dysfunction. 2. Deconditioning. 3. Questionable constipation and fecal retention. 4. Asymptomatic hypoxemia. 5. Leukocytosis with granulocytosis. 6. Normocytic anemia. 7. Prerenal kidney injury. 8. Status post acute renal failure. 9. 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 10. Deconditioning. 11. Gait dysfunction. 12. Sepsis secondary to Escherichia coli urinary tract infection. 13. History of colovesicular colovaginal fistula. 14. Dementia. 15. History of Parkinson disease. 16. History of anxiety disorder. 17. History of constipation. 1. Severe deconditioning and gait dysfunction. 2. Possible functional quadriplegia. 3. Nonproteinuric chronic kidney disease stage III. 4. Acute renal failure, secondary to prerenal kidney injury (resolved). 5. Mild venous stasis of the lower extremities. 6. Sepsis with Escherichia coli urinary tract infection. 7. Rectovesical and rectovaginal fistula. 8. Deconditioning. 9. Gait dysfunction. 10. Normocytic anemia. 11. Normocytic iron deficiency anemia. 12. Leukocytosis with granulocytosis. 13. Hypocalcemia. 14. Hypokalemia. 1. Severe gait dysfunction and deconditioning and possible functional quadriplegia. 2. Sepsis secondary to Escherichia coli urinary tract infection with history of rectovaginal, rectovesical fistula. 3. Escherichia coli urinary tract infection. 4. Acute renal failure. 5. Hypoxemia. 6. Normocytic anemia. 7. Leukocytosis with granulocytosis. 8. Status post acute renal failure. 9. Hypocalcemia. 10. Mild hypoalbuminemia. 11. History of dementia, Parkinson's disease, anxiety, and possible depression. 12. Prerenal kidney injury. 13. Non-proteinuric chronic kidney disease stage III. 14. History of anxiety. 15. History of dementia, history of depression, history of hypovitaminosis D. 1. Severe deconditioning and gait dysfunction and possible bedridden status and possible functional quadriplegia. 2. Sepsis secondary to a Escherichia coli urinary tract infection with history of vaginal and rectovesical fistula. 3. Deconditioning. 4. Escherichia coli urinary tract infection. 5. Acute renal failure. 6. History of hypertension. 7. Asymptomatic hypoxemia. 8. Kyphosis of the thoracic spine. 9. Hypoalbuminemia. 10. Hypocalcemia. 11. Normocytic anemia. 12. Hypokalemia. 13. Oropharyngeal dysphagia with impulsive and unsafe eating behaviors. 14. History of anxiety disorder. 15. History of dementia. 16. History of Parkinson disease. 17. History of normocytic iron deficiency anemia. 1. Severe gait dysfunction, deconditioning and bedridden status. 2. Questionable and possible functional quadriplegia. 3. Escherichia coli urinary tract infection. 4. Acute renal failure. 5. Systemic inflammatory response syndrome versus possible sepsis secondary to Escherichia coli urinary tract infection. 6. Colovesical and colovaginal fistula. 7. History of hypertension. 8. Asymptomatic hypoxemia. 9. Normocytic iron deficiency anemia. 10. Normal potassium. 11 Acute renal failure with mild prerenal kidney injury. 12. Non-proteinuric chronic kidney disease stage III/IV. 13. Hypocalcemia. 14. Hypoalbuminemia. 15. Malnutrition. 16. History of anxiety disorder. 17. History of dementia. 18. Iron deficiency normocytic anemia. 19. History of anxiety disorder. 20. Hypovitaminosis D. 21. Hyperuricemia. 22. Deconditioning. 1. Acute renal failure. 2. Systemic inflammatory response syndrome versus possible sepsis secondary to Escherichia coli urinary tract infection. 3. Colovesicular and colovaginal fistula. 4. Acute renal failure. 5. Poor compliance. 6. Severe gait deconditioning and severe gait dysfunction and bedridden status. 7. Functional quadriplegia. 8. Transient asymptomatic hypoxemia. 9. Leukocytosis with granulocytosis. 10. Normocytic iron deficiency anemia. 11. Transient hypernatremia. 12. Acute renal failure. 13. Hyperuricemia. 14. Transaminitis. 15. . 16. Hyperuricemia. 17. Iron deficiency normocytic anemia. 18. Escherichia coli urinary tract infection with proteinuria, hematuria, bacteriuria and pyuria. 19. Sepsis secondary to Escherichia coli urinary tract infection. 20. Mild aortic stenosis. 21. Moderate aortic regurgitation, moderate mitral regurgitation and mild tricuspid regurgitation. 22. History of anxiety disorder, history of dementia, history of hypovitaminosis D and hyperuricemia. 1. Acute renal failure. 2. Questionable sepsis with leukocytosis, granulocytosis. 3. Normocytic anemia. 4. Hypertension. 5. History of dementia. 6. Leukocytosis with granulocytosis. 7. Normocytic anemia. 8. Transient hypernatremia. 9. Acute kidney injury and acute renal failure (resolving). 10. Severe gait dysfunction, deconditioning and possible functional quadriplegia. 11. Hyperuricemia. 12. Transaminitis. 13. Hyperprocalcitoninemia. 14. Hypovitaminosis D. 15. Acute renal failure and acute kidney injury. 16. Escherichia coli urinary tract infection with hematuria, pyuria, bacteriuria. 17. Systemic inflammatory response syndrome with possible sepsis secondary to Escherichia coli urinary tract infection with ____vaginal and ____ fistula. 18. Prerenal azotemia. 19. Chronic kidney disease, stage, IIIB, nonproteinuric. 20. Severe deconditioning and gait dysfunction. 21. Chronic ____, ____ fistula with Escherichia coli urinary tract infection. 22. Moderate aortic and moderate mitral regurgitation. 23. Mild mitral valve prolapse, calcified aortic valve with mild aortic stenosis and moderate aortic regurgitation and moderate mitral regurgitation and mild tricuspid regurgitation with left ventricular ejection fraction of 55%. 24. Gait dysfunction. 25. Deconditioning 26. Anxiety disorder. 27. Dementia. 28. Hypovitaminosis D. 29. Hyperuricemia. 1. Acute renal failure. 2. Questionable sepsis with leukocytosis and granulocytosis. 3. Normocytic anemia. 4. Questionable hemorrhagic cystitis. 5. Questionable hemorrhagic cystitis with intrinsic mural and perivesicular abnormalities and dependent echogenic material debris in the bladder. 6. Left bundle-branch block and left axis deviation. 7. Left lower lung pleural thickening. 8. Cardiomegaly. 9. Sigmoid diverticulosis. 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 11. 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 12. Status post hysterectomy. 13. Sigmoid diverticulosis. 14. Leukocytosis with granulocytosis. 15. Normocytic anemia. 16. Hyponatremia. 17. Slow-resolving acute renal failure. 18. Hyperuricemia. 19. History of dementia. 20. Deconditioning. 21. Gait dysfunction. 22. Recurrent fall. 23. Questionable functional quadriplegia. 24. Hypovitaminosis D. 25. History of dyslipidemia. 26. History of angina, history of hypertension, history of dementia. 1. Altered mental status, etiology undetermined. 2. Acute renal failure and acute kidney injury and prerenal kidney injury. 3. Questionable and possible urinary tract infection. 4. Recurrent fall and gait dysfunction. 5. History of dementia. 6. Questionable swallowing and feeding dysfunction. 7. Leukocytosis with granulocytosis. 8. Normocytic anemia. 9. Hyperuricemia. 10. Hyperphosphatemia. 11. Transaminitis. 12. Elevated BNP with history of congestive heart failure. 13. Hematuria, pyuria, bacteriuria. 14. Left bundle branch block and left axis deviation. 15. Generalized osteopenia and thoracolumbar spondylosis with old healed left rib fracture. 16. Status post mastectomy for left breast carcinoma. 17. Gait dysfunction. 18. Recurrent falls. 19. 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 20. Questionable cystitis with thickened urinary bladder wall. 21. Questionable echogenic urinary bladder mass. 22. History of dementia. 23. History of hypovitaminosis D, history of anxiety, history of dementia, history of congestive heart failure, history of angina, history of dementia. 24. History of colovesicular and colovaginal fistula. VITAL SIGNS: The patient's T-max is 95.8-96 degrees Fahrenheit. Telemetry shows paced rhythm. Blood pressure systolic 90s, diastolic in 60s. Initial blood pressure in the Emergency Room was in low 100s. O2 sat is in low to mid 90s. CODE STATUS: At this time is DNR/DNI, but not DNH. The patient's family has declined hospice. The patient's other details of past medical history, psychiatric history, social history, family history, please refer to the previous admissions, history and physical and discharge summary from the last 2 months, history and physical and discharge summaries. PHYSICAL EXAMINATION: GENERAL: The patient is seen lying in room 272, bed 2. The patient is alert, awake, responsive, but slightly lethargic. HEAD: Normocephalic, atraumatic. HEENT: Shows pinkish, pale conjunctivae, dry oral mucosa. NECK: No neck rigidity, soft carotid bruit, positive Hep-Lock noted in the right external jugular. CARDIOVASCULAR: S1, S2, regular rhythm, positive systolic murmur right second intercostal space, left sternal border, left second intercostal space. LUNGS: Decreased breath sound at the bases. Occasional rhonchi upper lung walls. ABDOMEN: Soft, positive colostomy. GENITALIA: Female. Positive Ramirez catheter. Positive colostomy noted. EXTREMITIES: Shows trace to 1+ pitting edema. MUSCULOSKELETAL: Shows a chronically ill appearing, cachectic, debilitated female lying in the bed. NEUROLOGIC: The patient is alert, awake, responsive, is able to answer questions, but not move upper and lower extremities because of severe deconditioning. PSYCHIATRIC: Positive for history of dementia, positive for history of parkinsonism and positive history of anxiety and depression. DIAGNOSTIC DATA: Including CBC, CMP, x-rays, CAT scan of the head, EKG all reviewed. The patient was seen and evaluated in the Emergency Room this morning by Dr. Quiroga. The patient was found to be in nonhemolyzed hyperkalemia with worsening kidney failure. The patient was treated with IV fluid. The patient was treated with high dose nebulizer treatment. The patient was treated with Kayexalate. The patient was given bicarb. The patient was given calcium. The patient was given D50 x 2. The patient's repeat potassium came down from greater than 6.5-5.5. Repeat labs are pending. The patient's repeat labs would not be done because of poor intravenous access. IMPRESSION AND PLAN: 1. Questionable and possible sepsis versus systemic inflammatory response syndrome with hypothermia. 2. Hypotension. 3. Questionable and possible septic shock. 4. Non-hemolyzed hyperkalemia. 5. Acute renal failure with underlying chronic kidney disease. 6. Possible urinary tract infection with pyuria, bacteriuria, proteinuria, hematuria and funguria. 7. Transaminitis. 8. Malnutrition. 9. History of colovesical, colovaginal fistula. 10. History of recurrent sepsis and recurrent urinary tract infection. 11. History of Parkinson's disease, dementia, history of severe gait dysfunction, history of sick sinus syndrome with tachybrady syndrome, history of atrial fibrillation with rapid ventricular response and slow ventricular response with long pauses and periods of asystole. 12. Status post pacemaker implant. 13. History of severe gait dysfunction. 14. Severe deconditioning. 15. Severe gait dysfunction with possible functional quadriplegia. 16. Hypotension. 17. Hyperkalemia. 18. Severe gait dysfunction. 19. Poor intravenous access. 20. Small vessel ischemic disease of the brain. 21. Cerebral cortical atrophy of the brain. 22. Poor intravenous access. PLAN: At this time, the patient has been admitted to telemetry. The patient has been given IV fluid. Will be continued on IV fluid. The patient has been treated for hyperkalemia. Repeat chemistry is pending. The patient will be continued on IV fluid. The patient has been consulted with infectious disease, nephrology. The patient's case is referred for Dr. Leander Reina for evaluation for PICC line and also evaluation. DICTATED AND ELECTRONICALLY SIGNED NOT READ Rigo U Sam MD cc: [id number] TT: 11/29/2016 14:42:33 rn ISMAEL
--- NOTE | 2016-11-29 14:50 | CT ---
PROCEDURE: HISTORY: EFFUSSION/??SEPSIS COMPARISON: 11/11/2016 TECHNIQUE: Noncontrast FINDINGS: Large bilateral pleural effusions with compressive atelectasis of the lower lobes bilaterally. Cardiomegaly. No pericardial effusion. Mild irregularity of the liver margin; correlate for cirrhosis. Perihepatic and perisplenic ascites as well as extensive anasarca consistent with 3rd spacing. The pancreas, gallbladder and adrenal glands are unremarkable. No evidence of hydronephrosis or significant retroperitoneal lymphadenopathy. No evidence of bowel obstruction. Right lower quadrant ostomy. Ramirez catheter in bladder. No suspicious skeletal lesions. 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 Anasarca. No evidence of abscess. Bilateral lower lung field compressive atelectasis.
--- NOTE | 2016-11-29 15:37 | CARD ---
APPROVED REPORT EKG Measurement Heart [id number] <Conclusion> Electronic ventricular pacemaker
--- NOTE | 2016-11-29 18:38 | CARD ---
APPROVED REPORT EXAM: Two-dimensional and M-mode echocardiogram with Doppler and color Doppler. 2D DIMENSIONS Left Atrium (2D)3.3 (1.6-4.0cm)IVSd0.8 (0.7-1.1cm) LVDd4.4 (3.9-5.9cm)LVOT Diameter1.9 (1.8-2.4cm) PWd0.7 (0.7-1.1cm)LVDs3.6 (2.5-4.0cm) FS (%) 19.5 %LVEF (%)40.4 (>50%) M-Mode DIMENSIONS Left Atrium (MM)3.30 (2.5-4.0cm)Aortic Root2.50 (2.2-3.7cm) Aortic Cusp Exc.1.30 (1.5-2.0cm) Aortic Valve AoV Peak Hfjllnrl279.0cm/sAoV VTI41.7cmAO Peak GR.12mmHg LVOT Peak Tihyybtv22.5cm/sLVOT VTI16.80cmAO Mean GR.8mmHg SIMÓN (VMAX)1.75ya9EWM (VTI)1.33wo2IT P 1/2 Grhe754mq Mitral Valve MV E Qhhulnll828.0cm/sMV A Waqsdewt00.6cm/sE/A ratio1.8 TDI Lateral E' Peak V5.85cm/sMedial E' Peak V5.46cm/sE/Lateral E'19.7 E/Medial E'21.1 Pulmonary Valve PV Peak Kbccnfxy99.3cm/sPV Peak Grad.3mmHg Tricuspid Valve TR Peak Tkotdfyb676fd/sTR Peak Gr.53mmHg LEFT VENTRICLE The left ventricle is normal size. There is normal left ventricular wall thickness. The systolic function is moderately impaired. Septal hypokinesis RIGHT VENTRICLE The right ventricle is normal size. There is normal right ventricular wall thickness. The right ventricular systolic function is normal. ATRIA The left atrium size is normal. The right atrium size is normal. AORTIC VALVE The aortic valve is moderately to severely sclerotic. There is moderate aortic regurgitation. MITRAL VALVE The mitral valve is moderately thickened. Mitral regurgitation is severe. The mitral regurgitant jet is eccentrically directed. TRICUSPID VALVE There is moderate pulmonary hypertension. GREAT VESSELS The IVC is dilated. PERICARDIAL EFFUSION There is large left pleural effusion. <Conclusion> The left ventricle is normal size. There is normal left ventricular wall thickness. The systolic function is moderately impaired. Septal hypokinesis There is moderate aortic regurgitation. Mitral regurgitation is severe. There is moderate pulmonary hypertension. There is large left pleural effusion.
[2016-11-29] MEDS: Sodium Chloride 0.9% 1,000 ML IV SCH (20:30)
[2016-11-30] MEDS: Levalbuterol 0.63 MG/3 ML Inhal Soln UD IH SCH ×4 (02:25→20:00)
[2016-11-30] MEDS: Sodium Chloride 0.9% 1,000 ML IV SCH (04:49)
[2016-11-30] MEDS: Pantoprazole 40 mg EC Tab PO SCH (05:43)
[2016-11-30] MEDS ORDERED: Sod Polystyrene Sulf 15 gm/60 ml Oral Susp PO STA (09:17)
--- NOTE | 2016-11-30 09:43 | CP.PCM.PN ---
Subjective - Date & Time of Evaluation Date of Evaluation: 11/30/16 Time of Evaluation: 09:00 - Subjective Subjective: Pt has very poor veins,needs blood drawn for tests ordered. Objective - Vital Signs/Intake and Output Vital Signs (last 24 hours): Temp Pulse Resp BP Pulse Ox 97.4 F L 63 20 112/75 100 11/30/16 06:00 11/30/16 08:00 11/30/16 06:00 11/30/16 06:00 11/30/16 06:00 Intake and Output: 11/30/16 11/30/16 06:59 18:59 Intake Total 1120 Output Total 175 Balance 945 - Medications Medications: Current Medications Aspirin (Aspirin Chewable) 81 mg PO DAILY [facility] Last Admin: 11/29/16 09:48 Dose: 81 mg Atenolol (Tenormin) 12.5 mg PO BID [facility] Last Admin: 11/29/16 17:46 Dose: 12.5 mg Cholecalciferol (Vitamin D) 2,000 iu PO DAILY [facility] Last Admin: 11/29/16 09:48 Dose: 2,000 iu Clonazepam (Klonopin) 4 mg PO HS [facility] PRN Reason: Protocol Last Admin: 11/29/16 22:24 Dose: Not Given Diltiazem HCl (Cardizem) 30 mg PO TID [facility] Last Admin: 11/29/16 09:47 Dose: 30 mg Doxycycline Hyclate (Doryx) 100 mg PO Q12 [facility] PRN Reason: Protocol Stop: 12/08/16 10:01 Last Admin: 11/29/16 22:09 Dose: 100 mg Home Med (Home Med) 1 unit PO DAILY [facility] Last Admin: 11/29/16 12:25 Dose: Not Given Cefepime HCl (Maxipime 1gm) 1 gm in 100 mls @ 100 mls/hr IVPB Q12 [facility] PRN Reason: Protocol Stop: 12/08/16 10:01 Last Admin: 11/29/16 22:10 Dose: 100 mls/hr Sodium Chloride (Sodium Chloride 0.9%) 1,000 mls @ 100 mls/hr IV .Q10H [facility] Last Admin: 11/30/16 04:49 Dose: Not Given Calcium Gluconate 1,000 mg/ (Dextrose) 110 mls @ 110 mls/hr IVPB STAT STA Stop: 11/30/16 10:17 Levalbuterol HCl (Xopenex) 0.63 mg IH [id number] [facility] Last Admin: 11/30/16 07:57 Dose: 0.63 mg Lorazepam (Ativan) 0.5 mg PO BID [facility] PRN Reason: Protocol Last Admin: 11/29/16 17:45 Dose: 0.5 mg Mupirocin (Bactroban Ointment) 0.5 gm TOP TID [facility] Last Admin: 11/29/16 17:47 Dose: 1 appl Pantoprazole Sodium (Protonix Ec Tab) 40 mg PO 0630 [facility] Last Admin: 11/30/16 05:43 Dose: 40 mg Rivastigmine (Exelon Cap) 4.5 mg PO BID [facility] Last Admin: 11/29/16 17:46 Dose: 4.5 mg Ropinirole HCl (Requip) 8 mg PO HS [facility] Last Admin: 11/29/16 22:09 Dose: 8 mg - Labs Labs: 11/29/16 12:10 11/29/16 12:00 PT 11.2 Seconds (9.9-11.8) 11/28/16 22:20 INR 1.04 (0.93-1.08) 11/28/16 22:20 APTT 24.6 Seconds (23.7-30.8) 11/28/16 22:20 - Constitutional Appears: No Acute Distress Assessment and Plan - Assessment and Plan (Free Text) Assessment: Poor venous access. Plan: Multiple attempts were made to draw blood for tests ordered. Unable to draw blood due to very poor veins.Dr Vargas was notified. Patient may need a Picc line.
[2016-11-30] MEDS ORDERED: Dextrose 50% SYRINGE Inj (50 ml) IVP ONE (09:50)
[2016-11-30] MEDS: SELENIUM 200 MCG PO SCH (10:07)
[2016-11-30] MEDS: Cefepime 1gm in NS 100ml 1 GM/100 ML BAG IVPB SCH ×2 (10:12→22:25)
--- NOTE | 2016-11-30 11:20 | PN ---
DATE: 11/30/2016 The patient is in bed in no acute distress. PHYSICAL EXAMINATION: VITAL SIGNS: Temperature is 97, blood pressure is 112/70, respiratory rate of 18. HEENT: Unremarkable. NECK: Supple. LUNGS: Have decreased breath sounds. HEART: Normal S1, S2. ABDOMEN: Soft. LABORATORY DATA: Reveals a white count of 12,000, hemoglobin of 11 and platelets of 229. The chemis tries reveal the BUN of 71, creatinine of 1.8. The BNP is 25,900. Procalcitonin 0.21. Urinalysis i s noted, 1-3 WBCs. Blood cultures are reported to be no growth at 24 hours. A stool for C. diff ant igen and toxin are both negative. Review of the orders reveals the patient to be on cefepime and note is reviewed. Dr. Vargas's note is reviewed. The patient had a CAT scan of the chest and abdomen and pelvis, large bilateral pleural effusions, compressive atelectasis, evidence of severe th ird spacing and large bilateral effusion, perihepatic and perisplenic ascites. No evidence of absces s, bilateral lower lung compressive atelectasis. ASSESSMENT AND PLAN: An 81-year-old female with past medical history of dementia, kidney disease, co ngestive heart failure, cardiac arrhythmias, atrial fibrillation, history of vancomycin-resistant Ent erococcus urinary tract infection, fistula, anxiety, breast cancer, hypertension, Escherichia c milton in the urine, pneumothorax, presenting with a change of mental status, hypothermia, leukocytosis with systemic inflammatory response syndrome. Systemic inflammatory response syndrome with probable acute congestive heart failure and volume overl oad with a CAT scan negative for infiltrate, just atelectasis. Procalcitonin is 0.21. The patient i s afebrile with a white count which is 12,000. Urinalysis which is negative and blood cultures no gr owth and stool for C. difficile is negative. Would recommend discontinuing the cefepime the next 24 hours and discontinuing the doxycycline within the next 24 hours. No evidence of infection with a no rmal procalcitonin, negative blood cultures, negative CAT scan of the chest, negative CAT scan of the abdomen. Overall, prognosis is quite poor for this end-stage female. Austen Bradford MD cc: [id number] TT: 11/30/2016 11:19:31 Confirmation # [id number] Dictation # [id number]
--- NOTE | 2016-11-30 15:40 | PN ---
DATE: 11/30/2016 The patient is seen again in room 272, bed 2. The patient is lying in the bed with patient's family at bedside. The patient is much more awake, alert, responsive, is able to recognize me by name, recognize herself, able to say complete sentences, able to recognize her and the son. PHYSICAL EXAMINATION: VITAL SIGNS: T-max, patient is afebrile. Telemetry shows sinus rhythm, intermittent paced rhythm. Blood pressure 117/54-112/75-113/60, 124/47, 152/55 since last 24 hours. Respirations 18-20, O2 sat is 93%-100% on BiPAP. INTAKE AND OUTPUT: Intake yesterday 800, output not documented. Intake today 1120, output . HEAD: Normocephalic, atraumatic. HEENT: Shows positive skin breakdown on the nasal bridge secondary to CPAP. Pinkish, pale conjunctivae. Dry oral mucosa. NECK: No neck rigidity. Positive carotid bruit. CHEST: Kyphosis. LUNGS: Shows decreased breath sounds. Positive rhonchi upper lung field. Positive decreased breath sounds at the bases, left more than the right. CARDIOVASCULAR: Shows S1, S2, regular rhythm, positive systolic murmur left sternal border, left second intercostal space, right second intercostal space. Positive pacemaker in the left upper chest. ABDOMEN: Protuberant, positive bowel sounds. Positive right-sided colostomy. Slight distention and suprapubic distention. GENITALIA: Female. Positive Ramirez catheter. EXTREMITIES: Shows positive ADRIANO stockings, decreasing edema, but positive edema. MUSCULOSKELETAL: Shows a body mass index of 31. NEUROLOGIC: Cranial nerves II-XII limited. Gait examination could not be tested. VASCULAR: Palpable pulses. PSYCHIATRIC: Positive for history of anxiety, depression, dementia and Parkinson disease. Positive swelling of the upper extremity noted. DIAGNOSTICS: Lab work from today could not be drawn because of poor IV access. All the labs from yesterday, 11/29, was reviewed. Urine culture is growing gram-positive cocci. C. diff antigen and toxin are negative. CT of the chest, abdomen and pelvis was noted, which was explained to the patient's son and the . IMPRESSION AND PLAN: 1. Acute renal failure with worsening underlying chronic kidney disease. 2. Non-hemolyzed hyperkalemia. 3. Hyperphosphatemia. 4. Hypocalcemia. 5. Transaminitis. 6. Elevated lipase, etiology undetermined. 7. Leukocytosis with granulocytosis and normocytic anemia. 8. Macrocytic anemia. 9. Gram-positive cocci urinary tract infection with proteinuria, microscopic hematuria, pyuria, funguria. 10. Gram-positive cocci urinary tract infection. 11. Bilateral pleural effusion with bibasilar compressive atelectasis. 12. Cardiomegaly. 13. Questionable cirrhosis with irregularities of the hepatic margin and perihepatic and perisplenic ascites and extensive anasarca with third spacing. 14. Right-sided colostomy. 15. Severe gait dysfunction and deconditioning and bedridden status. 16. Possible functional quadriplegia. 17. Left ventricular ejection fraction of 40% with concentric left ventricular hypertrophy. 18. Moderately impaired left ventricular systolic function with left ventricular ejection fraction of 40%. 19. Moderately impaired left ventricular systolic function. 20. Moderate to severe aortic valve sclerosis and moderate aortic regurgitation. 21. Severe mitral regurgitation with moderately thickened mitral valve. 22. Moderate pulmonary arterial hypertension. 23. Septal hypokinesis. 24. Moderate aortic regurgitation. 25. Large pleural effusion. 26. Bilateral upper extremity swelling. 27. Poor intravenous access. 28. Cerebral cortical atrophy of the brain with small vessel ischemic disease of the brain and chronic lacunar infarcts and encephalomalacia. 29. Moderately impaired left ventricular systolic function with elevated BNP and systolic congestive heart failure with elevated BNP of 26,000. 30. Macrocytic anemia. 31. Status post non-hemolyzed hyperkalemia. 32. Gram-positive cocci urinary tract infection. 33. History of dementia, Parkinson disease, history of paroxysmal atrial fibrillation with multiple pauses and periods of asystole. 34. Status post permanent pacemaker implant and status post permanent pacemaker implant, left apical pneumothorax. 35. Systemic inflammatory response syndrome. 36. Volume overload with third spacing. 37. Severely debilitated, deconditioning. 38. hyperkalemia. 39. Systemic inflammatory response syndrome. 40. Status post colostomy. 41. History of rectovaginal, rectovesical fistula. 42. History of anxiety disorder, history of dementia, history of Parkinson disease and hypovitaminosis D. 1. Questionable and possible sepsis versus systemic inflammatory response syndrome with hypothermia. 2. Hypotension. 3. Questionable and possible septic shock. 4. Non-hemolyzed hyperkalemia. 5. Acute renal failure with underlying chronic kidney disease. 6. Possible urinary tract infection with pyuria, bacteriuria, proteinuria, hematuria and funguria. 7. Transaminitis. 8. Malnutrition. 9. History of colovesical, colovaginal fistula. 10. History of recurrent sepsis and recurrent urinary tract infection. 11. History of Parkinson's disease, dementia, history of severe gait dysfunction, history of sick sinus syndrome with tachybrady syndrome, history of atrial fibrillation with rapid ventricular response and slow ventricular response with long pauses and periods of asystole. 12. Status post pacemaker implant. 13. History of severe gait dysfunction. 14. Severe deconditioning. 15. Severe gait dysfunction with possible functional quadriplegia. 16. Hypotension. 17. Hyperkalemia. 18. Severe gait dysfunction. 19. Poor intravenous access. 20. Small vessel ischemic disease of the brain. 21. Cerebral cortical atrophy of the brain. 22. Poor intravenous access. PLAN: At this time, patient seen by Dr. Bradford today. His recommendations were noted. The patient seen by moth exterminator. Their recommendations noted. The patient is currently on serial labs. The patient may require PICC line placement as requested by the family for future use. CURRENT MEDICATIONS: Aspirin 81 mg daily, Ativan 0.5 mg twice a day, Bactroban cream to the affected area 3 times a day, The patient is on Cardizem 30 mg 3 times a day, doxycycline 100 mg p.o. q. 12, Exelon capsule 4.5 mg twice a day, selenium 200 mcg daily. The patient is on Klonopin 4 mg at bedtime, Lasix started by the moth exterminator 40 mg IV q. 12. The patient is on cefepime 1 gram IV q. 12, Protonix 40 p.o. daily, Requip 8 mg at bedtime. The patient's IV fluid is discontinued. The patient is on Tenormin 12.5 twice a day. The patient is on vitamin D 2000 units daily, Xopenex nebulizer. The patient has been ordered a venous Doppler of the upper extremity. The patient is on BiPAP 12/550%, FiO2 at rate of 18. The patient has been ordered ADRIANO stockings, SCDs, occupational therapy, physical therapy ordered. The patient and the patient's son and has been explained about the patient' s overall guarded to poor prognosis, multisystem organ involvement and failure. The patient has been made DNR/DNI. The patient's son and the has been explained about patient's guarded to poor prognosis, which they acknowledged and understand. All questions and concerns answered. Dictated and electronically signed, not read. Rigo Vargas MD cc: [id number] TT: 11/30/2016 15:39:58 Confirmation # [id number] Dictation # [id number] en MTDD
[2016-12-01] MEDS: Levalbuterol 0.63 MG/3 ML Inhal Soln UD IH SCH ×4 (01:27→19:36)
[2016-12-01] MEDS: Pantoprazole 40 mg EC Tab PO SCH (06:14)
[2016-12-01 07:10] LABS: ADD MANUAL DIFF? NO
[2016-12-01 07:32] LABS: ALB/GLOB RATIO 0.8 (1.1-1.8); BILIRUBIN,DIRECT 0.5 mg/dL (0.0-0.4); BILIRUBIN,TOTAL 0.6 mg/dL (0.2-1.3); CALCIUM 8.3 mg/dL (8.4-10.5); MAGNESIUM 1.9 mg/dL (1.7-2.2); PHOSPHOROUS 5.8 mg/dL (2.5-4.5); POTASSIUM 4.9 mmol/L (3.6-5.0)
[2016-12-01 07:37] LABS: BASO # 0.01 K/mm3 (0.0-2.0); BASO % 0.1 % (0.0-3.0); EOS # 0.2 (0.0-0.7); EOS % 1.4 % (1.5-5.0); GRAN # 10.02 (1.4-6.5); GRAN % 71.8 % (50.0-68.0); HEMATOCRIT 35.4 % (36.0-48.0); LYMPH # 2.6 (1.2-3.4); LYMPH % 18.4 % (22.0-35.0); MEAN CELL VOLUME 103.8 fL (80.0-105.0); MEAN CORPUSCULAR HEMOGLOBIN 32.8 pg (25.0-35.0); MEAN CORPUSCULAR HGB CONC 31.6 g/dl (31.0-37.0); MONO # 1.2 (0.1-0.6); MONO % 8.3 % (1.0-6.0); PLATELET COUNT 260 10^3/uL (120.0-450.0); RED CELL DISTRIBUTION WIDTH 21.2 % (11.5-14.5); WHITE BLOOD COUNT 13.9 10^3/ul (4.5-11.0)
--- NOTE | 2016-12-01 08:13 | PN ---
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 Nephrology consulted for hyperkalemia. The patient reports feeling well. Denies any shortness of breath, denies any pain. Was on BiPAP yes terday, taken off today. VITAL SIGNS: This morning, blood pressure 114/49, heart rate 69, respirations 20, temperature 97.4. O2 sat 100% on 50% FiO2 via BiPAP. PHYSICAL EXAMINATION: GENERAL: Lethargic but able to answer questions appropriately. No distress. HEENT: Moist mucous membranes, nonicteric. CHEST: Markedly decreased breath sounds, more so on the left than right. No rales, no wheezes, no r honchi. CARDIOVASCULAR: Soft systolic murmur. GASTROINTESTINAL: Abdomen soft, nontender, nondistended. Ostomy in place, draining liquidy stool. EXTREMITIES: Markedly edematous upper and lower extremities. Good capillary refill. PSYCHIATRIC: Somewhat agitated at times. LABORATORY DATA: Nothing new this morning. ProBNP from yesterday 25,900. Procalcitonin 0.21. ASSESSMENT AND PLAN: 1. Acute renal failure, acute kidney injury on chronic kidney disease with acute tubular necrosis on recent admission in the setting of hypotension. Renal function had improved and was stable as of ; however, urine output appears to have decreased and currently is oliguric. 2. Hyperkalemia yesterday, improved, and patient also started on Lasix for forced diuresis, however, no increase in urine output. Volume status, again, difficulty to assess, but patient has anasarca a s well as bilateral pleural infusions from third spacing. Hold IV fluids. Keep on standing Lasix 40 mg IV push q. 12 hours. Low-potassium diet. 3. Acute hypercapnic respiratory failure, worsened by pleural effusions, causing marked respiratory acidosis. Placed on BiPAP yesterday. No repeat blood gas available. Mental status is slightly impr ekcia. Recommend to continue on BiPAP, avoid giving bicarbonate pushes or bicarbonate-containing flui ds as this will exacerbate hypercapnia if patient cannot adequately ventilate and can also cause intr acellular acidosis. 4. Systemic inflammatory response syndrome. Started on cefepime and doxycycline for possible pneumo dimas, although CAT scan subsequently done not revealing any pneumonia. ID recommending to stop antibi otics in the next 24 hours. UA has elevated leukocyte esterase although not many white cells. Urine culture showing gram-positive cocci with greater than 100,000 CFUs. Will follow up with ID regardin g possible urinary tract infection. Antibiotics should be dosed for creatinine clearance less than 2 0. 5. Congestive heart failure. The patient previously with systolic dysfunction with repeat echo show ing improved ejection fraction. Exam revealing anasarca and also with bilateral large pleural effusi ons although no pulmonary vascular congestion. Repeat echo ordered as the patient may benefit from a ggressive diuresis. 6. Atrial fibrillation/hypertension. Had been started on atenolol and Cardizem on last admission. Recommend to continue with 12.5 mg b.i.d. and hold off on Cardizem for now as ventricular rate has been controlled. 7. Bilateral pleural effusions in the setting of acute illness as well as possibly due to congestive heart failure. Recommend therapeutic thoracentesis for comfort and to improve respiratory status. Wally Ash MD cc: [id number] TT: 11/30/2016 13:22:50 Confirmation # [id number] Dictation # [id number] mn 11/30/2016 13:39:07
--- NOTE | 2016-12-01 08:23 | PQF SEPSIS ---
This form is a permanent part of the medical record Dr. Vargas, Based on clinical presentation and documentation of r/o sepsis on admission, please document specifically if sepsis was present on admission, ruled out, undetermined. Clarification of your documentation is requested to better reflect the severity of illness and intensity of treatment of your patient. Indicators present [x] Temp < 96.8 or > 100.4 [x] WBC count > 12,000/mm3 or <000/mm3 or 10% immature neutrophils [x] Heart Rate > 90 [x] Respiratory Rate > 20 [] Fever or hypothermia [] Chills [] Positive blood cultures [x] Hypotension [] Metabolic acidosis (Elevated lactate level, anion gap or reduced blood pH) [x] Acute confusion /Altered Mental Status [] Shock [] Other: [] Location in the medical record that reflects the above clinical findings: [] Treatment Provided: [] PHYSICIAN'S RESPONSE Based on your medical judgment of the clinical indicators outlined above, are you treating this patient for a known or suspected: [] Sepsis / Septicemia Please specify organism if known [] [] SIRS (Systemic Inflammatory Response Syndrome) [] Severe Sepsis (Sepsis with Associated Organ Dysfunction) [] Fever of Unknown Origin [] Other, please indicate: [] [] If Unable to Determine, please check the box, sign and date. Present On Admission (POA) Indicator: [] Present at the time of admission [] Not present at the time of admission [] Clinically Undetermined In responding to this query, please exercise your independent professional judgment. The fact that a question is asked does not imply that any particular answer is desired or expected. Thank you for your clarification on this documentation. 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
[2016-12-01] MEDS ORDERED: Lidocaine 2% Inj (20ml) ONE (08:47)
--- NOTE | 2016-12-01 10:23 | US ---
HISTORY: Arm pain and swelling. Evaluate for deep venous thrombosis. PHYSICIAN(S): Leander Reina MD. FINDINGS: The exam is limited by edema and the patient's inability to cooperate. The visualized internal jugular veins are sonographically normal and compressible. No evidence of obstruction or thrombus this is seen. The visualized segments of the subclavian veins are patent with normal waveforms. No sonographic evidence of obstruction or thrombosis is seen. The visualized deep venous systems of both upper extremities proximally are sonographically normal and compressible. IMPRESSION: 1. No sonographic evidence for deep venous thrombosis in the visualized segments of both upper strategies. 2. Limited study.
[2016-12-01] MEDS: Cefepime 1gm in NS 100ml 1 GM/100 ML BAG IVPB SCH (10:40)
[2016-12-01] MEDS: SELENIUM 200 MCG PO SCH (11:52)
--- NOTE | 2016-12-01 12:58 | CP.PCM.CON ---
History of Present Illness - History of Present Illness History of Present Illness: General Surgery Consult Re: Loop appliance removal HPI: 81F, well known to the surgical service, presented from [facility] on with lethargy, failure to thrive, worsening ARF, leukocytosis and hypotension. We were consulted for removal of her loop colostomy bridge . She had the colostomy creation here on 11/14/16. She offers no complaints at this time. Her colostomy is functioning well. PMH: Rectovaginal fistula and Recto-Urethral Fistula, diverticulosis, CHF, parkinson's disease, Hx breast cancer PSH: hysterectomy, L mastectomy, loop colostomy SH: No smoking, EtOH, or drug use All: NKDA Meds: See MAR Review of Systems - Review of Systems All systems: reviewed and no additional remarkable complaints except (as per HPI ) Past Patient History - Infectious Disease Hx of Infectious Diseases: None - Past Medical History & Family History Past Medical History?: Yes - Past Social History Smoking Status: Never Smoked - CARDIAC Hx Cardiac Disorders: Yes Hx Congestive Heart Failure: Yes Hx Hypertension: Yes - PULMONARY Hx Respiratory Disorders: No Hx Chronic Obstructive Pulmonary Disease (COPD): No - NEUROLOGICAL Hx Neurological Disorder: Yes HX Cerebrovascular Accident: No Hx Parkinson's Disease: Yes - HEENT Hx HEENT Problems: No - RENAL Hx Chronic Kidney Disease: Yes (URINARY RETENTION) Hx Renal Failure: No - ENDOCRINE/METABOLIC Hx Endocrine Disorders: No Hx Diabetes Mellitus Type 1: No Hx Diabetes Mellitus Type 2: No Hx Hypothyroidism: No - HEMATOLOGICAL/ONCOLOGICAL Hx Blood Transfusions: Yes Hx Blood Transfusion Reaction: No - INTEGUMENTARY Hx Dermatological Problems: Yes Other/Comment: MULTIPLE PUSTULES AND BROWN PLAQUES TO FACE AND BACK. - MUSCULOSKELETAL/RHEUMATOLOGICAL Hx Arthritis: No Hx Falls: Yes - GASTROINTESTINAL Hx Gastrointestinal Disorders: Yes (COLOVESICAL FISTULA) Hx Gastroesophageal Reflux: No Other/Comment: Colostomy - GENITOURINARY/GYNECOLOGICAL Hx Genitourinary Disorders: Yes (BREAST CA -LEFT MASTECTOMY.) Other/Comment: VESICOVAGINAL FISTULA,RECTOVAGINAL FISTULA,HYSTERECTOMY - PSYCHIATRIC Hx Psychophysiologic Disorder: Yes Hx Anxiety: Yes Hx Substance Use: No - SURGICAL HISTORY Other/Comment: Colostomy - ANESTHESIA Hx Anesthesia: Yes Hx Anesthesia Reactions: No Hx Malignant Hyperthermia: No Meds Allergies/Adverse Reactions: Allergies Allergy/AdvReac Type Severity Reaction Status Date / Time No Known Allergies Allergy Verified 11/12/16 21:15 - Medications Medications: Current Medications Aspirin (Aspirin Chewable) 81 mg PO DAILY [facility] Last Admin: 12/01/16 10:37 Dose: 81 mg Atenolol (Tenormin) 12.5 mg PO BID [facility] Last Admin: 12/01/16 10:38 Dose: 12.5 mg Cholecalciferol (Vitamin D) 2,000 iu PO DAILY [facility] Last Admin: 12/01/16 10:37 Dose: 2,000 iu Clonazepam (Klonopin) 4 mg PO HS [facility] PRN Reason: Protocol Last Admin: 11/30/16 21:37 Dose: Not Given Diltiazem HCl (Cardizem) 30 mg PO TID [facility] Last Admin: 11/29/16 09:47 Dose: 30 mg Doxycycline Hyclate (Doryx) 100 mg PO Q12 [facility] PRN Reason: Protocol Stop: 12/08/16 10:01 Last Admin: 12/01/16 10:39 Dose: 100 mg Furosemide (Lasix) 40 mg IVP Q12 [facility] Last Admin: 12/01/16 10:36 Dose: 40 mg Home Med (Home Med) 1 unit PO DAILY [facility] Last Admin: 12/01/16 11:52 Dose: Not Given Tigecycline 50 mg/ Sodium (Chloride) 100 mls @ 100 mls/hr IVPB Q12 [facility] PRN Reason: Protocol Stop: 12/01/16 12:59 Levalbuterol HCl (Xopenex) 0.63 mg IH [id number] [facility] Last Admin: 12/01/16 07:30 Dose: 0.63 mg Lorazepam (Ativan) 0.5 mg PO BID [facility] PRN Reason: Protocol Last Admin: 12/01/16 10:39 Dose: 0.5 mg Mupirocin (Bactroban Ointment) 0.5 gm TOP TID [facility] Last Admin: 12/01/16 10:57 Dose: 1 appl Pantoprazole Sodium (Protonix Ec Tab) 40 mg PO 0630 [facility] Last Admin: 12/01/16 06:14 Dose: Not Given Rivastigmine (Exelon Cap) 4.5 mg PO BID [facility] Last Admin: 12/01/16 10:37 Dose: 4.5 mg Ropinirole HCl (Requip) 8 mg PO HS [facility] Last Admin: 11/30/16 22:25 Dose: 8 mg Physical Exam - Constitutional Appears: No Acute Distress, Cachectic, Chronically Ill - Head Exam Head Exam: ATRAUMATIC, NORMOCEPHALIC - Eye Exam Eye Exam: EOMI. absent: Scleral icterus - ENT Exam ENT Exam: Mucous Membranes Dry Additional comments: trachea midline - Respiratory Exam Respiratory Exam: NORMAL BREATHING PATTERN. absent: Respiratory Distress - Cardiovascular Exam Cardiovascular Exam: RRR, +S1, +S2 - GI/Abdominal Exam GI & Abdominal Exam: Soft. absent: Distended, Tenderness Additional comments: ostomy pink, viable with good stool output - Rectal Exam Rectal Exam: Deferred - Extremities Exam Extremities exam: Positive for: normal capillary refill, pedal edema (trace). Negative for: calf tenderness - Neurological Exam Neurological exam: Alert - Psychiatric Exam Psychiatric exam: Normal Affect, Normal Mood - Skin Skin Exam: Dry, Warm Results - Vital Signs Recent Vital Signs: Last Vital Signs Temp 98.4 F 12/01/16 12:00 Pulse 76 12/01/16 12:00 Resp 20 12/01/16 06:00 BP 144/65 12/01/16 12:00 Pulse Ox 18 L 12/01/16 12:00 - Labs Result Diagrams: 12/01/16 07:00 12/01/16 07:00 Labs: Laboratory Results - last 24 hr 12/01/16 12/01/16 07:00 07:00 WBC 13.9 H RBC 3.41 L Hgb 11.2 L Hct 35.4 L MCV 103.8 MCH 32.8 MCHC 31.6 RDW 21.2 H Plt Count 260 MPV 11.0 Gran % 71.8 H Lymph % (Auto) 18.4 L [place] % (Auto) 8.3 H Eos % (Auto) 1.4 L Baso % (Auto) 0.1 Gran # 10.02 H Lymph # 2.6 [place] # 1.2 H Eos # 0.2 Baso # 0.01 Sodium 144 Potassium 4.9 Chloride 118 H Carbon Dioxide 16 L Anion Gap 15 BUN 75 H Creatinine 2.2 H Est GFR ( Amer) 26 Est GFR (Non-Af Amer) 21 Random Glucose 76 Calcium 8.3 L Phosphorus 5.8 H Magnesium 1.9 Total Bilirubin 0.6 Direct Bilirubin 0.5 H AST 29 ALT 55 Alkaline Phosphatase 355 H Total Protein 6.0 Albumin 2.6 L Globulin 3.4 Albumin/Globulin Ratio 0.8 L Assessment & Plan - Assessment and Plan (Free Text) Assessment: 81F s/p loop colostomy on 11/14/16 Plan: Will remove ostomy bridge. D/W Dr Juni Clements PGY3
--- NOTE | 2016-12-01 13:09 | PN ---
DATE: 12/01/2016 The patient is seen in room 272, bed 2. The patient is sitting up in the bed, ____ just returned from right upper extremity PICC line placement. The patient is awake, alert, responsive. Overnight nurse's notes were reviewed. The patient slept well, required BiPAP in the night. The patient had poor IV access yesterday, and no blood could be drawn yesterday, but last night, the patient refused as per the patient's nurse. The patient refused BiPAP. The patient's Ramirez continued. PHYSICAL EXAMINATION: VITAL SIGNS: T-max is 98.8. Telemetry shows sinus rhythm with intermittent paced rhythm. Heart rate in 70s and 60s. Blood pressure is 114/49, 138/60, 115 /50, 122/60, 121/64, respirations 20, O2 sat 96%. Intake/output yesterday 474 and 700. Today's intake ____, output 1775. HEAD: Normocephalic, atraumatic. HEENT: Shows pinkish, pale conjunctivae, anicteric sclerae. No oropharyngeal lesion. NECK: Soft carotid bruit. CHEST: Kyphosis, positive left upper chest pacemaker noted. LUNGS: Positive decreased breath sounds at the bases bilaterally, left more than the right. CARDIOVASCULAR: Shows S1, S2, regular rhythm, positive systolic murmur, right second intercostal space, left sternal border, left second intercostal space. ABDOMEN: Soft, positive protuberance. Positive right-sided colostomy. GENITALIA: Female. Positive Ramirez catheter. EXTREMITIES: Shows decreasing pitting edema of the lower extremity. Positive ADRIANO stockings. MUSCULOSKELETAL: Shows a body mass index of 30. NEUROLOGIC: Limited. The patient is alert, awake, responsive, in no distress. GAIT: Examination could not be tested. The patient is lying in the bed. PSYCHIATRIC: Positive of history of dementia, Parkinson's disease, anxiety, depression. DIAGNOSTICS: 12/01: WBC is 13.9, hemoglobin and hematocrit 11.2 and 35.4, platelets 260, granulocytes 72%. Sodium today 144, potassium 4.9, chloride 118 , CO2 of 16, anion gap 15, BUN 75, creatinine 2.2. GFR 26. Glucose is 76, calcium 8.3, phosphorus 5.8, alk phos 355, albumin 2.6. Urinalysis is growing out vancomycin-resistant Enterococcus faecium and yeast. VRE is resistant to all except Zyvox and ____. IMPRESSION AND PLAN: 1. Recurrent acute renal failure. 2. Recurrent non-hemolyzed hyperkalemia. 3. Status post right upper extremity peripherally-inserted central catheter line placement for poor intravenous access. 4. Vancomycin-resistant enterococcus urinary tract infection and funguria. 5. Systemic inflammatory response syndrome. 6. Acute renal failure with underlying chronic kidney disease stage III/IV. 7. Acute tubular necrosis. 8. Non-hemolyzed hyperkalemia. 9. Third spacing with volume and fluid overload with bilateral pleural effusion and anasarca. 10. Hypercapnic respiratory failure. 11. Leukocytosis with granulocytosis. 12. Normocytic anemia. 13. Non-hemolyzed hyperkalemia. 14. Hyperphosphatemia. 15. Hypoalbuminemia. 16. Funguria. 17. Vancomycin-resistant Enterococcus faecalis faecium, enterococcus faecium urinary tract infection and funguria with proteinuria, hematuria, pyuria, bacteriuria, and funguria. 18. Bilateral pleural effusion with bibasilar atelectasis and cardiomegaly. 19. Questionable and possible cirrhosis with perihepatic and perisplenic ascites with anasarca and third spacing. 20. Right-sided colostomy. 21. Severe deconditioning, gait dysfunction, bedridden status, and functional quadriplegia. 22. Cerebral cortical atrophy of the brain. 23. Microvascular ischemic disease of the brain. 24. Chronic lacunar infarcts and encephalomalacia. 25. Left ventricular ejection fraction of 40% with moderately impaired left ventricular systolic function and septal hypokinesis. 26. Moderate to severely sclerotic aortic valve and moderate aortic regurgitation. 27. Severe mitral regurgitation with moderately thickened mitral valve. 28. Moderate pulmonary hypertension. 29. Large left pleural effusion. 30. 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 31. Post permanent pacemaker implant, left apical pneumothorax. 1. Acute renal failure with worsening underlying chronic kidney disease. 2. Non-hemolyzed hyperkalemia. 3. Hyperphosphatemia. 4. Hypocalcemia. 5. Transaminitis. 6. Elevated lipase, etiology undetermined. 7. Leukocytosis with granulocytosis and normocytic anemia. 8. Macrocytic anemia. 9. Gram-positive cocci urinary tract infection with proteinuria, microscopic hematuria, pyuria, funguria. 10. Gram-positive cocci urinary tract infection. 11. Bilateral pleural effusion with bibasilar compressive atelectasis. 12. Cardiomegaly. 13. Questionable cirrhosis with irregularities of the hepatic margin and perihepatic and perisplenic ascites and extensive anasarca with third spacing. 14. Right-sided colostomy. 15. Severe gait dysfunction and deconditioning and bedridden status. 16. Possible functional quadriplegia. 17. Left ventricular ejection fraction of 40% with concentric left ventricular hypertrophy. 18. Moderately impaired left ventricular systolic function with left ventricular ejection fraction of 40%. 19. Moderately impaired left ventricular systolic function. 20. Moderate to severe aortic valve sclerosis and moderate aortic regurgitation. 21. Severe mitral regurgitation with moderately thickened mitral valve. 22. Moderate pulmonary arterial hypertension. 23. Septal hypokinesis. 24. Moderate aortic regurgitation. 25. Large pleural effusion. 26. Bilateral upper extremity swelling. 27. Poor intravenous access. 28. Cerebral cortical atrophy of the brain with small vessel ischemic disease of the brain and chronic lacunar infarcts and encephalomalacia. 29. Moderately impaired left ventricular systolic function with elevated BNP and systolic congestive heart failure with elevated BNP of 26,000. 30. Macrocytic anemia. 31. Status post non-hemolyzed hyperkalemia. 32. Gram-positive cocci urinary tract infection. 33. History of dementia, Parkinson disease, history of paroxysmal atrial fibrillation with multiple pauses and periods of asystole. 34. Status post permanent pacemaker implant and status post permanent pacemaker implant, left apical pneumothorax. 35. Systemic inflammatory response syndrome. 36. Volume overload with third spacing. 37. Severely debilitated, deconditioning. 38. hyperkalemia. 39. Systemic inflammatory response syndrome. 40. Status post colostomy. 41. History of rectovaginal, rectovesical fistula. 42. History of anxiety disorder, history of dementia, history of Parkinson disease and hypovitaminosis D. 1. Questionable and possible sepsis versus systemic inflammatory response syndrome with hypothermia. 2. Hypotension. 3. Questionable and possible septic shock. 4. Non-hemolyzed hyperkalemia. 5. Acute renal failure with underlying chronic kidney disease. 6. Possible urinary tract infection with pyuria, bacteriuria, proteinuria, hematuria and funguria. 7. Transaminitis. 8. Malnutrition. 9. History of colovesical, colovaginal fistula. 10. History of recurrent sepsis and recurrent urinary tract infection. 11. History of Parkinson's disease, dementia, history of severe gait dysfunction, history of sick sinus syndrome with tachybrady syndrome, history of atrial fibrillation with rapid ventricular response and slow ventricular response with long pauses and periods of asystole. 12. Status post pacemaker implant. 13. History of severe gait dysfunction. 14. Severe deconditioning. 15. Severe gait dysfunction with possible functional quadriplegia. 16. Hypotension. 17. Hyperkalemia. 18. Severe gait dysfunction. 19. Poor intravenous access. 20. Small vessel ischemic disease of the brain. 21. Cerebral cortical atrophy of the brain. 22. Poor intravenous access. PLAN: At this time, I have discussed the patient's condition, diagnosis, test results, recommendation with the patient's son today at the bedside with the nurse practitioner at the bedside. The patient's son and the patient were advised about their request about doing a thoracentesis. So I have advised the patient's son to contact Dr. Leander Reina and discuss with him about risks and benefits of thoracentesis, and also I explained to the patient's son regarding the patient's volume overload issue and congestive heart failure issue, and I have asked the patient's son to give consideration for placement of the dialysis catheter if indicated by the registrar nurses' registry and agreed by the family. The patient should have a dialysis catheter placed in for future possibilities of requiring hemodialysis, maybe on a regular basis versus as needed basis. I have asked the patient's son to discuss these options with Dr. Reina. Plan at this time, the patient has been ordered serial labs. Current consultation infectious disease, nephrology, interventional radiology, and surgery for evaluation of colostomy. CURRENT MEDICATIONS: Aspirin 81 mg daily, Ativan 0.5 mg twice a day, Bactroban cream to the affected area 3 times a day, Cardizem 30 mg 3 times a day, doxycycline 100 mg p.o. q. 12, Exelon capsule 4.5 mg twice a day, Lasix 40 mg IV q. 12, Cefepime 1 gram IV q. 12, Protonix 40 mg daily, Requip 8 mg at bedtime , Tenormin 12.5 twice a day, vitamin D3 - 2000 units daily, Xopenex 0.63 mg every 6 hours. Since the patient has VRE in the urine, the patient may be considered for either Zyvox or ____. Maybe the patient will be considered for ____ or Zyvox. The patient at present is seen in room 272, bed 2. The patient is on DNR status. The patient's current medications reviewed. The patient is on aspirin 81 daily , Ativan 0.5 twice a day, Bactroban cream to the affected area, Cardizem 30 mg 3 times a day, doxycycline 100 mg p.o. q. 12, Exelon capsule 4.5 twice a day, selenium 200 mg daily, Klonopin 4 mg at bedtime, Lasix 40 mg IV q. 12, Protonix 40 mg daily, Requip 8 mg at bedtime, Tenormin 12.5 twice a day. The patient is given a dose of Tygacil 50 mg IV q. 12, vitamin D3 - 2000 units daily, Xopenex 0.63 mg every 6 hours. The patient has been ordered BiPAP, which the patient is refusing at a setting of 12/550 percent rate of 18. The patient has been ordered SCDs, ADRIANO stockings , out of bed, etc. I have again explained to the patient's son about overall the patient's guarded to poor prognosis and multisystem organ dysfunction, which he acknowledged and understands. All questions and concerns answered at length in layman's language. Dictated and electronically signed, not read. Rigo Vargas MD cc: [id number] TT: 12/01/2016 12:58:43 Confirmation # [id number] Dictation # [id number] jn ISMAEL
--- NOTE | 2016-12-01 16:34 | PN ---
DATE: 12/01/2016 The patient is in bed in no acute distress. The patient was seen early this morning. PHYSICAL EXAMINATION: VITAL SIGNS: Temperature is 98, blood pressure is 140/60, respiratory rate of 18. HEENT: Unremarkable. NECK: Supple. LUNGS: Decreased breath sounds. HEART: Normal S1, S2. ABDOMEN: Soft, nontender. No rebound, no guarding. LABORATORY EXAMINATION: Reveals a white count of 13,900; hemoglobin of 11, platelets of 260. BUN of 75, creatinine of 2.2. Urinalysis is 1-3 WBCs. Microbiology reveals a VRE and yeast in the urine. The blood cultures are no growth. Stool for C. diff reveals to be a negative antigen and negative t oxin. Review of orders reveals the patient to be on p.o. doxycycline. ASSESSMENT AND PLAN: This is an 81-year-old female with a history of dementia, kidney disease, conge stive heart failure, cardiac arrhythmias, atrial fibrillation, history of vancomycin-resistant entero cocci, urinary tract infection, fistula, anxiety, breast cancer, hypertension, Escherichia coli in th e urine, pneumothorax, presenting with a change of mental status, hypothermia, thrombocytopenia with systemic inflammatory response syndrome with acute congestive heart failure and volume overload with CAT scan of the chest negative for infiltrates. Procalcitonin is only 0.2 currently and with leukocy tosis. Blood cultures negative. Urine cultures positive for vancomycin-resistant enterococci coloni zer, not a pathogen with unremarkable number of WBCs in the urine. We will discontinue the doxycycli ne. Follow the WBCs off of antibiotics. Should be placed on vancomycin-resistant enterococci precau tions; however, does not require treatment. We will follow the WBC count. Today's white count is up to 13,900 with 71% granulocytosis. Austen Bradford MD cc: [id number] TT: 12/01/2016 16:33:55 Confirmation # [id number] Dictation # [id number] sn
--- NOTE | 2016-12-01 16:35 | VASCULAR ---
PROCEDURE: Ultrasound and fluoroscopically placed right upper extremity PICC line. HISTORY: Sepsis. Limited IV access. Needs PICC line. PHYSICIAN(S): Leander Reina MD. TECHNIQUE: The relative risks and indications of the procedure were explained to the patient's family and consent obtained. The patient was placed supine on the arteriogram table and the right arm prepped and draped in the usual sterile fashion. A tourniquet was applied to the right axilla. 1% Xylocaine was used to anesthetize the skin and soft tissues at the puncture site above the elbow. The right basilic vein was punctured under direct ultrasound guidance with a micropuncture set. A 0.018 guidewire was advanced centrally and used to measure the length to the SVC/RA junction. A 5 [place] single-lumen PICC line 36 cm long was advanced to the SVC/RA junction. The catheter was flushed and secured. The patient tolerated the procedure well. IMPRESSION: 1. Ultrasound and fluoroscopically placed right upper extremity PICC line. A 5 [place] single-lumen PICC line 36 cm long was advanced to the SVC/RA junction.
--- NOTE | 2016-12-01 20:32 | PN ---
DATE: 12/01/2016 An 81-year-old female with past medical history of hypertension, CHF with systolic dysfunction, CKD stage II-IIIA, colovesical/colovaginal fistulae status post diverting loop colostomy admitted with hadley porras, found to have hypercapnic respiratory failure, persistent acute renal failure, nephrology con sulted for hyperkalemia. The patient today again reports feeling well. Denies any shortness of breath, denies any pain, has b een on BiPAP intermittently. PHYSICAL EXAMINATION: VITAL SIGNS: This morning, blood pressure 123/59, heart rate 71, respirations 20, temperature 98.4, O2 sat 96% on 2 liters oxygen via nasal cannula. GENERAL: No distress, mildly lethargic, able to converse in full sentences coherently. HEENT: Moist mucous membranes. Nonicteric. CHEST: Decreased breath sounds bilaterally, more so on the left. No rhonchi, no rales, no wheezes. CARDIOVASCULAR: Systolic murmur at apex. Regular rate and rhythm. NECK: Elevated JVD. ABDOMEN: Soft, nontender, nondistended. EXTREMITIES: Marked bilateral leg edema. Good capillary refill. PSYCHIATRIC: Normal affect, normal mood. SKIN: Warm. No cyanosis. LABORATORY DATA: This morning, CBC: WBC 13.9, hemoglobin 11.2, hematocrit 35.4, platelets 260. Naomi charmaine: Sodium 144, potassium 4.9, chloride 118, bicarbonate 16, BUN 75, creatinine 2.2, glucose 76, calcium 8.3, phosphorus 5.8, albumin 2.6. ASSESSMENT: 1. Acute renal failure, acute kidney injury on chronic kidney disease with acute tubular necrosis on recent admission in the setting of hypertension. Renal function mildly worsened since admission; ho wever, urine output has increased substantially. Still markedly volume overloaded. Potassium now st able, normal anion gap, metabolic acidosis in the setting of renal failure. No indication for hemodi alysis at this time, will continue with aggressive diuresis. 2. Hyperkalemia, resolved. Should remain stable as urine output has improved and patient on standin g diuretics. 3. Acute decompensated congestive heart failure with systolic dysfunction. Repeat echo showing ejec tion fraction of 40%, also with reported severe mitral regurgitation possibly worsened due to volume overload. The patient will benefit from aggressive IV diuresis. While this may result in temporary worsening of renal function, it is necessary for cardiac optimization. Also, patient's acute tubular necrosis should resolve over time and renal function should improve. Continue standing Lasix 40 mg IV push q. 12 hours. If patient tolerates, may increase to q. 8 hours. 4. Acute hypercapnic respiratory failure worsened by pleural effusions causing marked respiratory ac idosis clinically appears to have benefited from BiPAP. Recommend to continue BiPAP. Recommend to a void giving bicarbonate pushes or bicarbonate continuing fluids at this will exacerbate hypercapnic i f the patient cannot be adequately ventilated. 5. Systemic inflammatory response syndrome. ID opting to discontinue antibiotics as imaging not con sistent with pneumonia. However, gave dose of tigecycline VRE in urine as patient does have a mild l eukocytosis. No renal dose adjustment needed. 6. Atrial fibrillation/hypertension. The patient currently on atenolol 12.5 mg b.i.d., ventricular rate controlled. The patient tolerating without hypotension. Should continue the same. Would avoid having additional medications unless patient is persistently with rapid ventricular rate as there is a need to avoid hypotension to avoid further renal insult. 7. Bilateral pleural effusions in the setting of congestive heart failure as well as mitral regurgit ation. Will benefit from therapeutic thoracentesis for comfort measures as well as to improve respir atory status. Wally Ash MD cc: [id number] TT: 12/01/2016 20:31:55 Confirmation # [id number] Dictation # [id number] jn
[2016-12-02] MEDS: Levalbuterol 0.63 MG/3 ML Inhal Soln UD IH SCH ×4 (01:24→21:30)
[2016-12-02 05:10] LABS: ADD MANUAL DIFF? NO
[2016-12-02 05:24] LABS: BASO # 0.01 K/mm3 (0.0-2.0); BASO % 0.1 % (0.0-3.0); EOS # 0.1 (0.0-0.7); EOS % 0.4 % (1.5-5.0); GRAN # 10.66 (1.4-6.5); GRAN % 80.9 % (50.0-68.0); HEMATOCRIT 37.3 % (36.0-48.0); LYMPH # 1.6 (1.2-3.4); LYMPH % 11.8 % (22.0-35.0); MEAN CELL VOLUME 105.4 fL (80.0-105.0); MEAN CORPUSCULAR HEMOGLOBIN 32.2 pg (25.0-35.0); MEAN CORPUSCULAR HGB CONC 30.6 g/dl (31.0-37.0); MEAN PLATELET VOLUME 10.7 fl (7.0-11.0); MONO # 0.9 (0.1-0.6); MONO % 6.8 % (1.0-6.0); PLATELET COUNT 321 10^3/uL (120.0-450.0); WHITE BLOOD COUNT 13.2 10^3/ul (4.5-11.0)
[2016-12-02 05:28] LABS: ALB/GLOB RATIO 0.8 (1.1-1.8); BILIRUBIN,DIRECT 0.6 mg/dL (0.0-0.4); BILIRUBIN,TOTAL 0.6 mg/dL (0.2-1.3); CALCIUM 8.3 mg/dL (8.4-10.5); MAGNESIUM 1.9 mg/dL (1.7-2.2); PHOSPHOROUS 7.4 mg/dL (2.5-4.5); POTASSIUM 5.1 mmol/L (3.6-5.0); TOTAL PROTEIN 6.4 g/dL (5.8-8.3)
[2016-12-02] MEDS: Pantoprazole 40 mg EC Tab PO SCH (05:53)
[2016-12-02] MEDS ORDERED: Sod Polystyrene Sulf 15 gm/60 ml Oral Susp PO ONE (06:42)
[2016-12-02] MEDS ORDERED: Sod Polystyrene Sulf 15 gm/60 ml Oral Susp PR ONE (09:58)
--- NOTE | 2016-12-02 10:18 | CP.PCM.PN ---
Subjective - Date & Time of Evaluation Date of Evaluation: 12/02/16 Time of Evaluation: 07:00 - Subjective Subjective: General surgery progress note for Dr. Radha Obando PGY1 81 F seen and examined at bedside. No acute complaints at this time. As per nursing staff, no overnight events. Pt is comfortable. Her colostomy is functioning well. Pt denied fever, chills, nausea, vomiting. Objective - Vital Signs/Intake and Output Vital Signs (last 24 hours): Temp Pulse Resp BP Pulse Ox 97.4 F L 68 22 120/53 L 95 12/02/16 07:30 12/02/16 07:30 12/02/16 07:30 12/02/16 07:30 12/02/16 07:30 Intake and Output: 12/02/16 12/02/16 06:59 18:59 Intake Total 120 Output Total 400 Balance -280 - Medications Medications: Current Medications Aspirin (Aspirin Chewable) 81 mg PO DAILY [facility] Last Admin: 12/01/16 10:37 Dose: 81 mg Atenolol (Tenormin) 12.5 mg PO BID [facility] Last Admin: 12/01/16 17:20 Dose: 12.5 mg Calcium Acetate (Phoslo) 667 mg PO WM [facility] Last Admin: 12/02/16 08:33 Dose: 667 mg Cholecalciferol (Vitamin D) 2,000 iu PO DAILY [facility] Last Admin: 12/01/16 10:37 Dose: 2,000 iu Clonazepam (Klonopin) 4 mg PO HS [facility] PRN Reason: Protocol Last Admin: 12/01/16 21:25 Dose: 4 mg Diltiazem HCl (Cardizem) 30 mg PO TID [facility] Last Admin: 11/29/16 09:47 Dose: 30 mg Furosemide (Lasix) 40 mg IVP Q8H [facility] Home Med (Home Med) 1 unit PO DAILY [facility] Last Admin: 12/01/16 11:52 Dose: Not Given Levalbuterol HCl (Xopenex) 0.63 mg IH [id number] [facility] Last Admin: 12/02/16 07:39 Dose: 0.63 mg Lorazepam (Ativan) 0.5 mg PO BID [facility] PRN Reason: Protocol Last Admin: 12/01/16 17:19 Dose: 0.5 mg Mupirocin (Bactroban Ointment) 0.5 gm TOP TID [facility] Last Admin: 12/01/16 17:21 Dose: 1 appl Pantoprazole Sodium (Protonix Ec Tab) 40 mg PO 0630 [facility] Last Admin: 12/02/16 05:53 Dose: 40 mg Rivastigmine (Exelon Cap) 4.5 mg PO BID [facility] Last Admin: 12/01/16 17:23 Dose: 4.5 mg Ropinirole HCl (Requip) 8 mg PO HS [facility] Last Admin: 12/01/16 21:24 Dose: 8 mg - Labs Labs: 12/02/16 05:00 12/02/16 05:00 PT 11.2 Seconds (9.9-11.8) 11/28/16 22:20 INR 1.04 (0.93-1.08) 11/28/16 22:20 APTT 24.6 Seconds (23.7-30.8) 11/28/16 22:20 - Constitutional Appears: No Acute Distress - Head Exam Head Exam: ATRAUMATIC, NORMAL INSPECTION, NORMOCEPHALIC - Eye Exam Eye Exam: EOMI, Normal appearance, PERRL Pupil Exam: NORMAL ACCOMODATION, PERRL - ENT Exam ENT Exam: Mucous Membranes Dry - Neck Exam Neck Exam: Full ROM, Normal Inspection. absent: Lymphadenopathy - Respiratory Exam Respiratory Exam: Clear to Ausculation Bilateral, NORMAL BREATHING PATTERN - Cardiovascular Exam Cardiovascular Exam: REGULAR RHYTHM, +S1, +S2. absent: Murmur - GI/Abdominal Exam GI & Abdominal Exam: Soft, Normal Bowel Sounds. absent: Tenderness Additional comments: ostomy pink, viable with good stool output - Extremities Exam Extremities Exam: Pedal Edema (trace) - Psychiatric Exam Psychiatric exam: Normal Affect, Normal Mood - Skin Skin Exam: Dry, Intact, Normal Color, Warm Assessment and Plan - Assessment and Plan (Free Text) Assessment: 81F s/p loop colostomy on 11/14/16 ostomy bridge removed and functioning colostomy Surgery team will be signing off Discussed with Dr Alfredo
[2016-12-02 10:51] LABS: VENOUS BLOOD GAS BASE EXCESS -13.2 mmol/L (0.0-2.0)
[2016-12-02 10:55] LABS: VENOUS BLOOD PH 7.05 (7.32-7.43)
--- NOTE | 2016-12-02 11:00 | PN ---
DATE: 12/02/2016 The patient is seen lying in the bed in room 562, bed 1. The patient's at bedside. The patient is arousable, but sleepy. The patient was found to be alert, awake, oriented x 2 by the nurses. The patient has adequate colostomy output, but inadequate urine output. PHYSICAL EXAMINATION: VITAL SIGNS: T-max is 98.4, pulse of 80-74-60, blood pressure 120/53, 144/65, respirations 20, O2 sat 95%. INTAKE AND OUTPUT: Yesterday intake 714, total output 1775, urine output 1575. Today's intake 120, urine output is 600. HEAD: Normocephalic, atraumatic. HEENT: Shows pinkish, pale conjunctivae, anicteric sclerae. HEAD: Normocephalic, atraumatic. HEENT: Shows pinkish conjunctivae. Anicteric sclerae. Dry oral mucosa. NECK: Soft carotid bruit. CHEST: Kyphosis. Positive left upper chest pacemaker CARDIOVASCULAR: Shows S1, S2. Positive systolic murmur left sternal border, right second intercostal space, left second intercostal space. LUNGS: Positive decreased breath sounds at the bases, left more than the right. ABDOMEN: Soft, positive right-sided colostomy, slightly distended, protuberant. GENITALIA: Female. Positive Ramirez catheter. EXTREMITIES: Shows decreasing pitting edema and swelling. Positive ADRIANO stockings. Positive decreased swelling of the bilateral upper extremities, positive right upper extremity PICC line. GAIT: Not tested as patient is lying in the bed. NEUROLOGIC: The patient is arousable, alert, responsive, oriented to person, place, does not appear to be in any distress. PSYCHIATRIC: Positive for history of dementia, Parkinson disease, history of anxiety, depression. GAIT: Could not be tested. DIAGNOSTICS: WBC 13.2, hemoglobin/hematocrit 11.4 and 37.3, platelets 321, granulocytes 81% segs. Sodium 145, potassium 5.1, chloride 117, CO2 19, anion gap 14, BUN 83, creatinine 2.6, GFR 21, glucose 93, calcium 8.3, phosphorus 7.4 , alk phos 351, albumin 2.9. Repeat urine cultures from 12/01, gram-positive cocci between 50,000 to 100,000. Potassium 5.1, phosphorus 7.4, which is all going up. IMPRESSION AND PLAN: 1. Acute renal failure with worsening and decreasing urine output. 2. Volume overload with anasarca and bilateral pleural effusions. 3. Lethargy. 4. Transient hypotension. 5. History of hypertension. 6. Leukocytosis with granulocytosis. 7. Macrocytic anemia. 8. Hypercarbic and hypercapnic respiratory failure. 9. Non-hemolyzed hyperkalemia. 10. Acute renal failure, acute kidney injury with underlying chronic kidney disease stage IV/V. 11. Hyperphosphatemia. 12. Elevated alkaline phosphatase. 13. Hypoalbuminemia. 14. Vancomycin-resistant Enterococcus faecium urinary tract infection and funguria and gram-positive cocci urinary tract infection. 15. Severe gait dysfunction and bedridden status and severe deconditioning. 16. Functional quadriplegia. 17. Bilateral pleural effusion with bibasilar atelectasis and cardiomegaly. 18. Possible hepatic cirrhosis with perihepatic, perisplenic ascites and extensive anasarca with third spacing and volume overload. 19. Status post colostomy. 20. Bibasilar atelectasis. 21. Status post right upper extremity peripherally inserted central catheter line placement. 22. History of dementia. 23. Left ventricular ejection fraction of 40% with moderately impaired left ventricular systolic function and septal hypokinesis. 24. Moderate to severely sclerotic aortic valve with moderate aortic regurgitation. 25. Severe mitral regurgitation with moderately thickened mitral valve. 26. Moderate pulmonary arterial hypertension. 27. Bilateral pleural effusion, left more than the right. 28. Status post permanent pacemaker. 29. Severe deconditioning. 30. Acute tubular necrosis. 31. History of dementia. 32. History of paroxysmal atrial fibrillation with rapid ventricular response and slow ventricular response with long pauses and periods of asystole. 33. History of dementia, Parkinson disease, anxiety, depression. 34. Status post permanent pacemaker implant. 35. Post permanent pacemaker left apical pneumothorax. 36. Hypothermia. 37. Systemic inflammatory response syndrome. 38. Deconditioning. 39. History of anxiety disorder. 40. Non-hemolyzed hyperkalemia. 41. Hyperphosphatemia. 42. Hypovitaminosis D. 1. Recurrent acute renal failure. 2. Recurrent non-hemolyzed hyperkalemia. 3. Status post right upper extremity peripherally-inserted central catheter line placement for poor intravenous access. 4. Vancomycin-resistant enterococcus urinary tract infection and funguria. 5. Systemic inflammatory response syndrome. 6. Acute renal failure with underlying chronic kidney disease stage III/IV. 7. Acute tubular necrosis. 8. Non-hemolyzed hyperkalemia. 9. Third spacing with volume and fluid overload with bilateral pleural effusion and anasarca. 10. Hypercapnic respiratory failure. 11. Leukocytosis with granulocytosis. 12. Normocytic anemia. 13. Non-hemolyzed hyperkalemia. 14. Hyperphosphatemia. 15. Hypoalbuminemia. 16. Funguria. 17. Vancomycin-resistant Enterococcus faecalis faecium, enterococcus faecium urinary tract infection and funguria with proteinuria, hematuria, pyuria, bacteriuria, and funguria. 18. Bilateral pleural effusion with bibasilar atelectasis and cardiomegaly. 19. Questionable and possible cirrhosis with perihepatic and perisplenic ascites with anasarca and third spacing. 20. Right-sided colostomy. 21. Severe deconditioning, gait dysfunction, bedridden status, and functional quadriplegia. 22. Cerebral cortical atrophy of the brain. 23. Microvascular ischemic disease of the brain. 24. Chronic lacunar infarcts and encephalomalacia. 25. Left ventricular ejection fraction of 40% with moderately impaired left ventricular systolic function and septal hypokinesis. 26. Moderate to severely sclerotic aortic valve and moderate aortic regurgitation. 27. Severe mitral regurgitation with moderately thickened mitral valve. 28. Moderate pulmonary hypertension. 29. Large left pleural effusion. 30. 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 31. Post permanent pacemaker implant, left apical pneumothorax. 1. Acute renal failure with worsening underlying chronic kidney disease. 2. Non-hemolyzed hyperkalemia. 3. Hyperphosphatemia. 4. Hypocalcemia. 5. Transaminitis. 6. Elevated lipase, etiology undetermined. 7. Leukocytosis with granulocytosis and normocytic anemia. 8. Macrocytic anemia. 9. Gram-positive cocci urinary tract infection with proteinuria, microscopic hematuria, pyuria, funguria. 10. Gram-positive cocci urinary tract infection. 11. Bilateral pleural effusion with bibasilar compressive atelectasis. 12. Cardiomegaly. 13. Questionable cirrhosis with irregularities of the hepatic margin and perihepatic and perisplenic ascites and extensive anasarca with third spacing. 14. Right-sided colostomy. 15. Severe gait dysfunction and deconditioning and bedridden status. 16. Possible functional quadriplegia. 17. Left ventricular ejection fraction of 40% with concentric left ventricular hypertrophy. 18. Moderately impaired left ventricular systolic function with left ventricular ejection fraction of 40%. 19. Moderately impaired left ventricular systolic function. 20. Moderate to severe aortic valve sclerosis and moderate aortic regurgitation. 21. Severe mitral regurgitation with moderately thickened mitral valve. 22. Moderate pulmonary arterial hypertension. 23. Septal hypokinesis. 24. Moderate aortic regurgitation. 25. Large pleural effusion. 26. Bilateral upper extremity swelling. 27. Poor intravenous access. 28. Cerebral cortical atrophy of the brain with small vessel ischemic disease of the brain and chronic lacunar infarcts and encephalomalacia. 29. Moderately impaired left ventricular systolic function with elevated BNP and systolic congestive heart failure with elevated BNP of 26,000. 30. Macrocytic anemia. 31. Status post non-hemolyzed hyperkalemia. 32. Gram-positive cocci urinary tract infection. 33. History of dementia, Parkinson disease, history of paroxysmal atrial fibrillation with multiple pauses and periods of asystole. 34. Status post permanent pacemaker implant and status post permanent pacemaker implant, left apical pneumothorax. 35. Systemic inflammatory response syndrome. 36. Volume overload with third spacing. 37. Severely debilitated, deconditioning. 38. hyperkalemia. 39. Systemic inflammatory response syndrome. 40. Status post colostomy. 41. History of rectovaginal, rectovesical fistula. 42. History of anxiety disorder, history of dementia, history of Parkinson disease and hypovitaminosis D. 1. Questionable and possible sepsis versus systemic inflammatory response syndrome with hypothermia. 2. Hypotension. 3. Questionable and possible septic shock. 4. Non-hemolyzed hyperkalemia. 5. Acute renal failure with underlying chronic kidney disease. 6. Possible urinary tract infection with pyuria, bacteriuria, proteinuria, hematuria and funguria. 7. Transaminitis. 8. Malnutrition. 9. History of colovesical, colovaginal fistula. 10. History of recurrent sepsis and recurrent urinary tract infection. 11. History of Parkinson's disease, dementia, history of severe gait dysfunction, history of sick sinus syndrome with tachybrady syndrome, history of atrial fibrillation with rapid ventricular response and slow ventricular response with long pauses and periods of asystole. 12. Status post pacemaker implant. 13. History of severe gait dysfunction. 14. Severe deconditioning. 15. Severe gait dysfunction with possible functional quadriplegia. 16. Hypotension. 17. Hyperkalemia. 18. Severe gait dysfunction. 19. Poor intravenous access. 20. Small vessel ischemic disease of the brain. 21. Cerebral cortical atrophy of the brain. 22. Poor intravenous access. PLAN: At this time, patient has been ordered serial labs. CURRENT CONSULTATIONS: 1. Infectious disease. 2. Nephrology. 3. Interventional radiology. 4. Surgery. The patient is currently on aspirin 81 mg daily, Ativan 0.5 twice a day, Bactroban cream to the affected area to the nasal bridge 3 times a day, Cardizem 30 mg 3 times a day, Exelon 4.5 mg twice a day, selenium 200 mcg daily. The patient has been ordered Kayexalate 50 gram retention enema, Klonopin 4 mg at bedtime, Lasix 40 mg IV q. 12 which will be changed to q. 8 because of patient's poor diuresis and poor urine output. The patient is on PhosLo 667 mg with meals, Protonix 40 mg daily, Requip 8 mg at bedtime, Tenormin 12.5 twice a day, vitamin D 2000 units daily, Xopenex 0.63 mg every 6 hours. The patient has been ordered a thoracentesis by Dr. Leander Reina today. The patient is on BiPAP at 12/5, 50% FiO2, rate of 18. The patient is on dysphagia modified consistency diet. The patient is on out of bed, ADRIANO stockings, SCDs, occupational therapy, physical therapy ordered. The patient's overall prognosis is extremely guarded to extremely poor, which I have explained to the patient's family on multiple occasions during this patient 's hospitalization since 10/29/2016. At present, patient was seen by nephrology. They do not recommend dialysis. The patient was seen by infectious disease. They not recommend any further intravenous antibiotics. After patient undergoes thoracentesis, patient will be considered for discharge back to [facility] with followup labs and repeat labs at the retirement. The patient was seen by social work manager yesterday. The patient will be transferred back to [facility]. Dictated and electronically signed, not read. Rigo Vargas MD cc: [id number] TT: 12/02/2016 11:00:13 Confirmation # [id number] Dictation # [id number] en ISMAEL
--- NOTE | 2016-12-02 12:45 | PN ---
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 Admitted with hadley porras, found to have hypercapnic respiratory failure, persistent acute renal failure. Nephrology co nsulted for hyperkalemia. Per family, patient has been very lethargic this morning after appearing well yesterday evening, is n ot too lethargic to eat. Otherwise, patient denies being short of breath, denies any pain. PHYSICAL EXAMINATION: VITAL SIGNS: This morning, blood pressure 120/53, heart rate 68, respirations 22, temperature 97.4, O2 sat 95%. GENERAL: The patient is very lethargic, but arousable and able to answer questions. HEENT: Moist mucous membranes, nonicteric. CHEST: Markedly decreased breath sounds, on left more than right. No rhonchi, no wheezes. HEART: Systolic murmur present. Regular rate and rhythm. Elevated JVD. GASTROINTESTINAL: Abdomen soft, nontender, nondistended. Ostomy in place with brown liquid stool in bag. GENITOURINARY: No bladder distention. EXTREMITIES: Marked bilateral leg edema, more prominent in thighs. NEUROLOGIC: Able to follow commands. LABORATORIES: This morning, CBC: WBC 13.2, hemoglobin 11.4, hematocrit 37.3, platelets 321. Chemis try panel: Sodium 145, potassium 5.1, chloride 117, bicarbonate 19, BUN 83, creatinine 2.6, calcium 8.3, phosphorus 7.4, albumin 2.9. Venous blood gas, pH 7.05, pCO2 65. ASSESSMENT: 1. Acute renal failure, acute kidney injury, on chronic kidney disease with persistent acute tubular necrosis since last admission. Urine microscopy again directly observed today still showing signifi cant number of granular casts consistent with acute tubular necrosis. However, likely has superimpos ed cardiorenal etiology secondary to congestive heart failure and severe mitral regurgitation. Serum creatinine continues to increase with drop in urine output despite being on IV Lasix. Borderline hy perkalemia, mild non-gap metabolic acidosis from renal failure. Discussed with family that patient m ay need to be restarted on hemodialysis and that this may not be a short-term endeavor, especially du e to cardiovascular component. Family currently agreeable to a trial of hemodialysis, although it wa s explained to them that the long-term need for hemodialysis is unclear. No urgent indication for di alysis currently. Will increase Lasix dose to 60 mg IV push q. 8-12 hours. If no response, will esc alate dose, which is likely given worsening renal insufficiency. 2. Hyperkalemia. Received dose of Kayexalate today. Continue as needed. 3. Acute decompensated congestive heart failure with systolic dysfunction. Echo also showing severe mitral regurgitation. The patient would benefit from receiving euvolemic status, but it is unclear whether this can be achieved with diuretics. If no response to increased doses of diuretics, will jose manzanares need to initiate hemodialysis tomorrow. 4. Acute hypercapnic respiratory failure. Not responding very well to BiPAP in the setting of bilat eral pleural effusions. The patient set to have therapeutic thoracentesis today. Avoid giving bicar bonate-containing fluids or pushes as that will exacerbate hypercapnia if patient cannot be adequatel y ventilated. 5. Systemic inflammatory response syndrome. The patient with mild leukocytosis, but procalcitonin l evel is not elevated. Antibiotics discontinued, although urine culture is showing vancomycin-resista nt Enterococcus. Will send repeat urinalysis. 6. Atrial fibrillation/hypertension. Currently on atenolol 12.5 mg b.i.d. Ventricular rate control led. The patient tolerating without hypotension. Should continue the same. Avoid adding further bl ood pressure meds as this will worsen renal perfusion. Wally Ash MD cc: [id number] TT: 12/02/2016 12:44:58 Confirmation # [id number] Dictation # [id number] en
--- NOTE | 2016-12-02 17:40 | US ---
PROCEDURE: Ultrasound guided left thoracentesis. CLINICAL HISTORY: CHF. Bilateral pleural effusions. Shortness of breath. Needs thoracentesis. PHYSICIAN(S): Leander Reina MD. TECHNIQUE: The relative risks and indications of the procedure were explained to the patient's son and consent obtained. The patient was placed in a slight right decubitus position on the stretcher and sonography of the left chest performed. This revealed a small to moderate leftpleural effusion. A left high mid axillary approach was selected and the area prepped and draped usual sterile fashion. 1% Xylocaine was used to anesthetize the skin and soft tissues. A 7 Serbian thoracentesis catheter was trocared into the right pleural cavity and 700 cc of clear straw-colored fluid aspirated. No labs were sent. IMPRESSION: 1. Ultrasound guided left thoracentesis. 700 cc of clear, straw-coloredfluid were aspirated.
--- NOTE | 2016-12-02 19:02 | CP.PCM.PN ---
Subjective - Date & Time of Evaluation Date of Evaluation: 12/02/16 Time of Evaluation: 10:45 - Subjective Subjective: Patient continues to be on the BiPAP machine, with some shortness of breath, no fevers overnight. Objective - Vital Signs/Intake and Output Vital Signs (last 24 hours): Temp Pulse Resp BP Pulse Ox 97.4 F L 68 22 120/53 L 95 12/02/16 07:30 12/02/16 07:30 12/02/16 07:30 12/02/16 07:30 12/02/16 07:30 Intake and Output: 12/02/16 12/02/16 06:59 18:59 Intake Total 120 0 Output Total 400 Balance -280 0 - Medications Medications: Current Medications Aspirin (Aspirin Chewable) 81 mg PO DAILY [facility] Last Admin: 12/01/16 10:37 Dose: 81 mg Atenolol (Tenormin) 12.5 mg PO BID [facility] Last Admin: 12/01/16 17:20 Dose: 12.5 mg Calcium Acetate (Phoslo) 667 mg PO WM [facility] Last Admin: 12/02/16 08:33 Dose: 667 mg Cholecalciferol (Vitamin D) 2,000 iu PO DAILY [facility] Last Admin: 12/01/16 10:37 Dose: 2,000 iu Clonazepam (Klonopin) 4 mg PO HS [facility] PRN Reason: Protocol Last Admin: 12/01/16 21:25 Dose: 4 mg Diltiazem HCl (Cardizem) 30 mg PO TID [facility] Last Admin: 11/29/16 09:47 Dose: 30 mg Furosemide (Lasix) 40 mg IVP Q8H [facility] Home Med (Home Med) 1 unit PO DAILY [facility] Last Admin: 12/01/16 11:52 Dose: Not Given Levalbuterol HCl (Xopenex) 0.63 mg IH [id number] [facility] Last Admin: 12/02/16 13:56 Dose: 0.63 mg Lorazepam (Ativan) 0.5 mg PO BID [facility] PRN Reason: Protocol Last Admin: 12/01/16 17:19 Dose: 0.5 mg Mupirocin (Bactroban Ointment) 0.5 gm TOP TID [facility] Last Admin: 12/01/16 17:21 Dose: 1 appl Pantoprazole Sodium (Protonix Ec Tab) 40 mg PO 0630 [facility] Last Admin: 12/02/16 05:53 Dose: 40 mg Rivastigmine (Exelon Cap) 4.5 mg PO BID [facility] Last Admin: 12/01/16 17:23 Dose: 4.5 mg Ropinirole HCl (Requip) 8 mg PO HS [facility] Last Admin: 12/01/16 21:24 Dose: 8 mg - Labs Labs: 12/02/16 05:00 12/02/16 05:00 PT 11.2 Seconds (9.9-11.8) 11/28/16 22:20 INR 1.04 (0.93-1.08) 11/28/16 22:20 APTT 24.6 Seconds (23.7-30.8) 11/28/16 22:20 - Constitutional Appears: Cachectic, Chronically Ill, Other (on the BiPAP machine) - Neck Exam Neck Exam: absent: Lymphadenopathy, Meningismus - Respiratory Exam Respiratory Exam: Decreased Breath Sounds - Cardiovascular Exam Cardiovascular Exam: +S1, +S2 - GI/Abdominal Exam GI & Abdominal Exam: Soft. 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 Ash and there is plan for dialysis Overall prognosis is poor
[2016-12-02] MEDS: SELENIUM 200 MCG PO SCH (19:44)
[2016-12-03] MEDS: Levalbuterol 0.63 MG/3 ML Inhal Soln UD IH SCH ×4 (01:26→21:15)
[2016-12-03] MEDS: Pantoprazole 40 mg EC Tab PO SCH (05:52)
[2016-12-03 06:31] LABS: HEMATOCRIT 38.7 % (36.0-48.0); MEAN CELL VOLUME 105.7 fL (80.0-105.0); MEAN CORPUSCULAR HEMOGLOBIN 32.5 pg (25.0-35.0); MEAN CORPUSCULAR HGB CONC 30.7 g/dl (31.0-37.0); MEAN PLATELET VOLUME 11.1 fl (7.0-11.0); PLATELET COUNT 303 10^3/uL (120.0-450.0); RED CELL DISTRIBUTION WIDTH 20.1 % (11.5-14.5); WHITE BLOOD COUNT 13.4 10^3/ul (4.5-11.0)
[2016-12-03 06:47] LABS: ADD MANUAL DIFF? YES
[2016-12-03 06:49] LABS: ALB/GLOB RATIO 0.7 (1.1-1.8); BILIRUBIN,DIRECT 0.6 mg/dL (0.0-0.4); BILIRUBIN,TOTAL 0.6 mg/dL (0.2-1.3); CALCIUM 8.8 mg/dL (8.4-10.5); PHOSPHOROUS 9.5 mg/dL (2.5-4.5); TOTAL PROTEIN 6.4 g/dL (5.8-8.3)
[2016-12-03 08:09] LABS: POTASSIUM 5.9 mmol/L (3.6-5.0)
[2016-12-03] MEDS ORDERED: Sodium Bicarbonate (8.4%) 50 Meq Syringe IVP ONE (08:13)
[2016-12-03] MEDS ORDERED: Sod Polystyrene Sulf 15 gm/60 ml Oral Susp PR ONE (08:13)
[2016-12-03] MEDS ORDERED: Dextrose 50% SYRINGE Inj (50 ml) IVP ONE (08:13)
[2016-12-03 09:00] LABS: ANISOCYTOSIS 1+; BAND 2 % (0-2); HYPOCHROMIA 1+; NEUTROPHIL 85 % (50.0-70.0); OVALOCYTES SLIGHT; PLATELET ESTIMATE NORMAL (NORMAL); POLYCHROMASIA SLIGHT; TOXIC GRANULATION SLIGHT
--- NOTE | 2016-12-03 09:23 | RAD ---
HISTORY: lt thoracentesis COMPARISON: No prior. FINDINGS: LUNGS: There is a patchy infiltrate in left upper lobe. PLEURA: There is a decrease in the bilateral pleural effusions CARDIOVASCULAR: Moderate cardiomegaly OSSEOUS STRUCTURES: No significant abnormalities. VISUALIZED UPPER ABDOMEN: Normal. OTHER FINDINGS: Left-sided single lead pacemaker. PICC line in the right atrium IMPRESSION: Decreased bilateral pleural effusions. Patchy infiltrate in the left upper lobe
[2016-12-03] MEDS: SELENIUM 200 MCG PO SCH (09:41)
[2016-12-03] MEDS ORDERED: Insulin Regular 1 UNITS/0.01 ML ML IVP STA (11:06)
[2016-12-03] MEDS ORDERED: Dextrose 50% SYRINGE Inj (50 ml) IVP STA (11:06)
[2016-12-03] MEDS ORDERED: Lidocaine 2% Inj (20ml) ONE (11:19)
--- NOTE | 2016-12-03 11:55 | CP.PCM.PN ---
Subjective - Date & Time of Evaluation Date of Evaluation: 12/03/16 Time of Evaluation: 10:15 - Subjective Subjective: Continues to be on the BiPAP, arousable but lethargic and continues to be drowsy. No fevers overnight. Objective - Vital Signs/Intake and Output Vital Signs (last 24 hours): Temp Pulse Resp BP Pulse Ox 97.6 F 120 H 17 97/41 L 96 12/03/16 07:30 12/03/16 11:16 12/03/16 07:30 12/03/16 07:30 12/03/16 07:30 Intake and Output: 12/03/16 12/03/16 06:59 18:59 Intake Total 0 Output Total 200 Balance -200 - Medications Medications: Current Medications Aspirin (Aspirin Chewable) 81 mg PO DAILY [facility] Last Admin: 12/02/16 19:36 Dose: Not Given Atenolol (Tenormin) 12.5 mg PO BID [facility] Last Admin: 12/02/16 19:45 Dose: Not Given Calcium Acetate (Phoslo) 667 mg PO WM [facility] Last Admin: 12/02/16 19:45 Dose: Not Given Cholecalciferol (Vitamin D) 2,000 iu PO DAILY [facility] Last Admin: 12/02/16 19:46 Dose: Not Given Clonazepam (Klonopin) 4 mg PO HS [facility] PRN Reason: Protocol Last Admin: 12/02/16 21:01 Dose: 4 mg Diltiazem HCl (Cardizem) 30 mg PO TID [facility] Last Admin: 11/29/16 09:47 Dose: 30 mg Furosemide (Lasix) 60 mg IVP Q8H [facility] Last Admin: 12/03/16 02:56 Dose: 60 mg Home Med (Home Med) 1 unit PO DAILY [facility] Last Admin: 12/02/16 19:44 Dose: Not Given Levalbuterol HCl (Xopenex) 0.63 mg IH [id number] [facility] Last Admin: 12/03/16 07:22 Dose: 0.63 mg Lorazepam (Ativan) 0.5 mg PO BID [facility] PRN Reason: Protocol Last Admin: 12/02/16 19:36 Dose: Not Given Mupirocin (Bactroban Ointment) 0.5 gm TOP TID [facility] Last Admin: 12/02/16 19:40 Dose: 1 appl Pantoprazole Sodium (Protonix Ec Tab) 40 mg PO 0630 [facility] Last Admin: 12/03/16 05:52 Dose: 40 mg Rivastigmine (Exelon Cap) 4.5 mg PO BID [facility] Last Admin: 12/02/16 19:43 Dose: Not Given Ropinirole HCl (Requip) 8 mg PO HS [facility] Last Admin: 12/02/16 21:01 Dose: 8 mg - Labs Labs: 12/03/16 06:00 12/03/16 10:49 PT 11.2 Seconds (9.9-11.8) 11/28/16 22:20 INR 1.04 (0.93-1.08) 11/28/16 22:20 APTT 24.6 Seconds (23.7-30.8) 11/28/16 22:20 - Constitutional Appears: Other (on the BiPAP) - Head Exam Head Exam: NORMAL INSPECTION - Neck Exam Neck Exam: absent: Lymphadenopathy, Meningismus - Respiratory Exam Respiratory Exam: Decreased Breath Sounds, Rales (scattered) - Cardiovascular Exam Cardiovascular Exam: +S1, +S2 - GI/Abdominal Exam GI & Abdominal Exam: Soft. 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
[2016-12-03] MEDS ORDERED: Midazolam 2 MG/2 ML VIAL ONE (12:29)
--- NOTE | 2016-12-03 14:04 | PN ---
DATE: 12/03/2016 The patient is seen in room 562, bed 1. The patient is presently on BiPAP. Overnight nurse's notes were reviewed. The patient had decreasing urine output. The patient has been felt to be lethargic. PHYSICAL EXAMINATION: VITAL SIGNS: T-max 97.4, heart rate 70s, blood pressure 97/41, 117/37, 107/34, 114/47, 141/58, respirations 17, O2 sat 96% to 97%. Intake/output has been very poor. HEAD: Normocephalic, atraumatic. HEENT: Shows positive BiPAP noted. Pinkish pale conjunctivae, anicteric sclerae. No oropharyngeal lesion. NECK: Questionable soft carotid bruit. CHEST: Kyphosis. LUNGS: Show decreased breath sounds at the bases. CARDIOVASCULAR: S1, S2. Regular rhythm. Positive systolic murmur left sternal border, right second intercostal space, left sternal border. Positive left upper chest pacemaker. ABDOMEN: Positive colostomy. Positive abdominal protuberance. GENITALIA: Female. Positive Ramirez catheter. EXTREMITIES: Show missing ADRIANO stocking despite my orders. Positive pitting edema of the upper and lower extremities. NEUROLOGIC: The patient is alert, awake, responsive, lethargic. MUSCULOSKELETAL: 30. Neuro examination is limited. Cranial nerves II-XII not tested. DIAGNOSTICS: 12/03, WBC 13.4, hemoglobin and hematocrit 11.9 and 38.7, platelets 303. Granulocytosis 85. Chemistry from today shows sodium 146, potassium 5.9. Repeat potassium and 11:00 a.m. 5.5, chloride 118, CO2 18, anion gap 16, BUN has gone up to 83 and 99, creatinine is 2.8 and 2.6, glucose 79, calcium 8.8, phosphorus is up to 9.5, AST 42, alk phos 286. Microbiology: Cultures noted. The patient had a left ultrasound-guided thoracentesis yesterday with drainage of 700 mL of clear pleural fluid. The patient's repeat chest x-ray this morning post-thoracentesis shows left upper lobe patchy infiltrate, decreased bilateral pleural effusion, cardiomegaly, pacemaker. IMPRESSION: 1. Worsening acute renal failure with recurrent refractory non-hemolyzed hyperkalemia. 2. Persistent refractory leukocytosis with granulocytosis. 3. Normocytic anemia. 4. Metabolic acidosis with hypercarbia and acute hypercarbic hypercapnic respiratory failure. 5. Underlying chronic kidney disease stage IV. 6. Hyperphosphatemia. 7. Transaminitis. 8. Hypoalbuminemia. 9. Vancomycin-resistant Enterococcus faecium and yeast species questionable urinary tract infection with proteinuria, hematuria, pyuria, bacteriuria, funguria. 10. Status post ultrasound-guided left thoracentesis with drainage of 700 mL of pleural fluid. 11. Left upper lobe patchy new infiltrate. 12. Decreasing bilateral pleural effusion with cardiomegaly. 13. Status post permanent pacemaker implant. 14. Post-pacemaker left apical pneumothorax. 15. Hypercarbic respiratory failure. 16. Status post loop colostomy with removal of the ostomy bridge. 17. Transient hypotension. 18. Acute renal failure, acute kidney injury with underlying chronic kidney disease with acute tubular necrosis with granular casts in the urine. 19. Possible cardiorenal syndrome. 20. Non-gap metabolic acidosis. 21. History of atrial fibrillation with rapid ventricular response and slow ventricular response with periods of asystole and long pauses. 22. Acute hypercapnic respiratory failure secondary to volume overload. 23. Status post left apical pneumothorax. 24. History of rectovesical, rectovaginal fistula. 25. Parkinson's disease. 26. History of dementia, history of atrial fibrillation, history of systolic congestive heart failure. 1. Acute renal failure with worsening and decreasing urine output. 2. Volume overload with anasarca and bilateral pleural effusions. 3. Lethargy. 4. Transient hypotension. 5. History of hypertension. 6. Leukocytosis with granulocytosis. 7. Macrocytic anemia. 8. Hypercarbic and hypercapnic respiratory failure. 9. Non-hemolyzed hyperkalemia. 10. Acute renal failure, acute kidney injury with underlying chronic kidney disease stage IV/V. 11. Hyperphosphatemia. 12. Elevated alkaline phosphatase. 13. Hypoalbuminemia. 14. Vancomycin-resistant Enterococcus faecium urinary tract infection and funguria and gram-positive cocci urinary tract infection. 15. Severe gait dysfunction and bedridden status and severe deconditioning. 16. Functional quadriplegia. 17. Bilateral pleural effusion with bibasilar atelectasis and cardiomegaly. 18. Possible hepatic cirrhosis with perihepatic, perisplenic ascites and extensive anasarca with third spacing and volume overload. 19. Status post colostomy. 20. Bibasilar atelectasis. 21. Status post right upper extremity peripherally inserted central catheter line placement. 22. History of dementia. 23. Left ventricular ejection fraction of 40% with moderately impaired left ventricular systolic function and septal hypokinesis. 24. Moderate to severely sclerotic aortic valve with moderate aortic regurgitation. 25. Severe mitral regurgitation with moderately thickened mitral valve. 26. Moderate pulmonary arterial hypertension. 27. Bilateral pleural effusion, left more than the right. 28. Status post permanent pacemaker. 29. Severe deconditioning. 30. Acute tubular necrosis. 31. History of dementia. 32. History of paroxysmal atrial fibrillation with rapid ventricular response and slow ventricular response with long pauses and periods of asystole. 33. History of dementia, Parkinson disease, anxiety, depression. 34. Status post permanent pacemaker implant. 35. Post permanent pacemaker left apical pneumothorax. 36. Hypothermia. 37. Systemic inflammatory response syndrome. 38. Deconditioning. 39. History of anxiety disorder. 40. Non-hemolyzed hyperkalemia. 41. Hyperphosphatemia. 42. Hypovitaminosis D. 1. Recurrent acute renal failure. 2. Recurrent non-hemolyzed hyperkalemia. 3. Status post right upper extremity peripherally-inserted central catheter line placement for poor intravenous access. 4. Vancomycin-resistant enterococcus urinary tract infection and funguria. 5. Systemic inflammatory response syndrome. 6. Acute renal failure with underlying chronic kidney disease stage III/IV. 7. Acute tubular necrosis. 8. Non-hemolyzed hyperkalemia. 9. Third spacing with volume and fluid overload with bilateral pleural effusion and anasarca. 10. Hypercapnic respiratory failure. 11. Leukocytosis with granulocytosis. 12. Normocytic anemia. 13. Non-hemolyzed hyperkalemia. 14. Hyperphosphatemia. 15. Hypoalbuminemia. 16. Funguria. 17. Vancomycin-resistant Enterococcus faecalis faecium, enterococcus faecium urinary tract infection and funguria with proteinuria, hematuria, pyuria, bacteriuria, and funguria. 18. Bilateral pleural effusion with bibasilar atelectasis and cardiomegaly. 19. Questionable and possible cirrhosis with perihepatic and perisplenic ascites with anasarca and third spacing. 20. Right-sided colostomy. 21. Severe deconditioning, gait dysfunction, bedridden status, and functional quadriplegia. 22. Cerebral cortical atrophy of the brain. 23. Microvascular ischemic disease of the brain. 24. Chronic lacunar infarcts and encephalomalacia. 25. Left ventricular ejection fraction of 40% with moderately impaired left ventricular systolic function and septal hypokinesis. 26. Moderate to severely sclerotic aortic valve and moderate aortic regurgitation. 27. Severe mitral regurgitation with moderately thickened mitral valve. 28. Moderate pulmonary hypertension. 29. Large left pleural effusion. 30. 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 31. Post permanent pacemaker implant, left apical pneumothorax. 1. Acute renal failure with worsening underlying chronic kidney disease. 2. Non-hemolyzed hyperkalemia. 3. Hyperphosphatemia. 4. Hypocalcemia. 5. Transaminitis. 6. Elevated lipase, etiology undetermined. 7. Leukocytosis with granulocytosis and normocytic anemia. 8. Macrocytic anemia. 9. Gram-positive cocci urinary tract infection with proteinuria, microscopic hematuria, pyuria, funguria. 10. Gram-positive cocci urinary tract infection. 11. Bilateral pleural effusion with bibasilar compressive atelectasis. 12. Cardiomegaly. 13. Questionable cirrhosis with irregularities of the hepatic margin and perihepatic and perisplenic ascites and extensive anasarca with third spacing. 14. Right-sided colostomy. 15. Severe gait dysfunction and deconditioning and bedridden status. 16. Possible functional quadriplegia. 17. Left ventricular ejection fraction of 40% with concentric left ventricular hypertrophy. 18. Moderately impaired left ventricular systolic function with left ventricular ejection fraction of 40%. 19. Moderately impaired left ventricular systolic function. 20. Moderate to severe aortic valve sclerosis and moderate aortic regurgitation. 21. Severe mitral regurgitation with moderately thickened mitral valve. 22. Moderate pulmonary arterial hypertension. 23. Septal hypokinesis. 24. Moderate aortic regurgitation. 25. Large pleural effusion. 26. Bilateral upper extremity swelling. 27. Poor intravenous access. 28. Cerebral cortical atrophy of the brain with small vessel ischemic disease of the brain and chronic lacunar infarcts and encephalomalacia. 29. Moderately impaired left ventricular systolic function with elevated BNP and systolic congestive heart failure with elevated BNP of 26,000. 30. Macrocytic anemia. 31. Status post non-hemolyzed hyperkalemia. 32. Gram-positive cocci urinary tract infection. 33. History of dementia, Parkinson disease, history of paroxysmal atrial fibrillation with multiple pauses and periods of asystole. 34. Status post permanent pacemaker implant and status post permanent pacemaker implant, left apical pneumothorax. 35. Systemic inflammatory response syndrome. 36. Volume overload with third spacing. 37. Severely debilitated, deconditioning. 38. hyperkalemia. 39. Systemic inflammatory response syndrome. 40. Status post colostomy. 41. History of rectovaginal, rectovesical fistula. 42. History of anxiety disorder, history of dementia, history of Parkinson disease and hypovitaminosis D. 1. Questionable and possible sepsis versus systemic inflammatory response syndrome with hypothermia. 2. Hypotension. 3. Questionable and possible septic shock. 4. Non-hemolyzed hyperkalemia. 5. Acute renal failure with underlying chronic kidney disease. 6. Possible urinary tract infection with pyuria, bacteriuria, proteinuria, hematuria and funguria. 7. Transaminitis. 8. Malnutrition. 9. History of colovesical, colovaginal fistula. 10. History of recurrent sepsis and recurrent urinary tract infection. 11. History of Parkinson's disease, dementia, history of severe gait dysfunction, history of sick sinus syndrome with tachybrady syndrome, history of atrial fibrillation with rapid ventricular response and slow ventricular response with long pauses and periods of asystole. 12. Status post pacemaker implant. 13. History of severe gait dysfunction. 14. Severe deconditioning. 15. Severe gait dysfunction with possible functional quadriplegia. 16. Hypotension. 17. Hyperkalemia. 18. Severe gait dysfunction. 19. Poor intravenous access. 20. Small vessel ischemic disease of the brain. 21. Cerebral cortical atrophy of the brain. 22. Poor intravenous access. PLAN: At this time, patient's family has requested to reinitiate hemodialysis for which patient is going to proceed today with the ureteral catheter placement with Dr. Reina and upon completion of that, the patient will be initiated on hemodialysis as per nephrology recommendations and at the request of the patient's family. Repeat lab. The patient has been treated for hyperkalemia with Kayexalate enema, D50 insulin, sodium bicarb. Repeat labs ordered. The patient has been ordered repeat blood cultures. CURRENT CONSULTATIONS: 1. Infectious disease. 2. Nephrology. 3. Interventional radiology. 4. Surgery. Procalcitonin level is ordered. CURRENT MEDICATIONS: 1. Aspirin 81 mg daily. 2. Ativan 0.5 twice a day. 3. Bactroban cream to the affected area 3 times a day. 4. Cardizem 30 mg 3 times a day. 5. Exelon capsular 4.5 mg twice a day. 6. Selenium 200 mcg daily. 7. The patient was given the treatment for Kayexalate. 8. The patient is on Klonopin 4 mg at bedtime. 9. Lasix 60 mg q. 8 IV piggyback ordered and increased by ____. 10. The patient is on PhosLo 667 mg with meals. 11. Protonix 40 mg daily. 12. Requip 8 mg at bedtime. 13. Tenormin 12.5 twice a day. 14. Vitamin D3 2000 international units daily. 15. Xopenex 0.63 mg every 6 hours. The patient at present has been ordered ____. The patient is presently DNR/ DNI. The patient has been ordered occupational and physical therapy. At present, I have explained to the patient's today again whom I met at the bedside that patient's overall prognosis is getting worse and patient's likelihood of developing more and more complications with multiple organ dysfunction and multisystem organ failure was explained. The patient's has expressed interest in initiation and continuation of the hemodialysis which will be initiated after the placement of the dialysis catheter. Prognosis guarded to declining to poor. CODE STATUS: DNR/DNI. Dictated and electronically signed, not read. Rigo Vargas MD cc: [id number] TT: 12/03/2016 14:04:10 Confirmation # [id number] Dictation # [id number] lg GUEVARA
[2016-12-03] MEDS ORDERED: Albumin Human 25% (25 gm/100 ml) IV STA (15:46)
[2016-12-03 16:34] LABS: CALCIUM 8.3 mg/dL (8.4-10.5); POTASSIUM 4.8 mmol/L (3.6-5.0)
[2016-12-03] MEDS ORDERED: Vancomycin 1gm in NS 250ml 1 GM/250 ML BAG IVPB STA (16:38)
[2016-12-03] MEDS: Meropenem 500 MG in Sodium Chloride 0.9% 100 ML IVPB SCH (17:21)
--- NOTE | 2016-12-03 18:05 | VASCULAR ---
PROCEDURE: Ultrasound and fluoroscopic tunneled right IJ dialysis catheter. CLINICAL HISTORY: Acute on chronic renal failure. Volume overload. Needs dialysis. PHYSICIAN(S): Leander Reina M.D. TECHNIQUE: The relative risks and indications for the procedure were explained to the patient's family and informed written consent obtained. The patient was placed supine on the arteriography table and the right neck/chest was prepped and draped in the usual sterile fashion. 1% Xylocaine was used to anesthetize the skin and soft tissues at the puncture site. Conscious sedation and monitoring were provided throughout the procedure by a nurse. Under direct ultrasound guidance, the rightinternal jugular vein was punctured with a micropuncture set. A 0.035 Glidewire was advanced into the IVC. Sequential dilatation was performed with subsequent placement of a 24 cmCannon II catheter with its tip in the right atrium. A retrograde tunnel below the right clavicle was performed. The catheter was trimmed and the hub attached. Both ports aspirate and inject easily. The catheter was secured and a dressing applied. The patient tolerated the procedure well. IMPRESSION: 1. Ultrasound and fluoroscopically placed right IJ tunneled dialysis catheter.
[2016-12-04] MEDS: Levalbuterol 0.63 MG/3 ML Inhal Soln UD IH SCH ×4 (03:15→20:22)
[2016-12-04] MEDS: Pantoprazole 40 mg EC Tab PO SCH (06:33)
[2016-12-04 06:49] LABS: ADD MANUAL DIFF? NO
[2016-12-04 07:02] LABS: EOS % 0.2 % (1.5-5.0); GRAN # 10.56 (1.4-6.5); GRAN % 84.9 % (50.0-68.0); HEMATOCRIT 31.2 % (36.0-48.0); LYMPH # 1.1 (1.2-3.4); LYMPH % 8.8 % (22.0-35.0); MEAN CELL VOLUME 103.7 fL (80.0-105.0); MEAN CORPUSCULAR HEMOGLOBIN 31.9 pg (25.0-35.0); MEAN CORPUSCULAR HGB CONC 30.8 g/dl (31.0-37.0); MEAN PLATELET VOLUME 10.9 fl (7.0-11.0); MONO # 0.8 (0.1-0.6); MONO % 6.1 % (1.0-6.0); PLATELET COUNT 182 10^3/uL (120.0-450.0); RED CELL DISTRIBUTION WIDTH 20.2 % (11.5-14.5); WHITE BLOOD COUNT 12.5 10^3/ul (4.5-11.0)
[2016-12-04 07:25] LABS: ALB/GLOB RATIO 0.9 (1.1-1.8); BILIRUBIN,DIRECT 0.5 mg/dL (0.0-0.4); BILIRUBIN,TOTAL 0.5 mg/dL (0.2-1.3); CALCIUM 8.1 mg/dL (8.4-10.5); MAGNESIUM 1.9 mg/dL (1.7-2.2); PHOSPHOROUS 7.5 mg/dL (2.5-4.5); POTASSIUM 4.4 mmol/L (3.6-5.0); TOTAL PROTEIN 5.8 g/dL (5.8-8.3)
--- NOTE | 2016-12-04 10:03 | CP.PCM.PN ---
Subjective - Date & Time of Evaluation Date of Evaluation: 12/03/16 Time of Evaluation: 18:00 - Subjective Subjective: Nephrology f/u note; patient being seen for acute renal failure; Very lethargic this morning per family; anuric; Objective - Vital Signs/Intake and Output Vital Signs (last 24 hours): Temp Pulse Resp BP Pulse Ox 97.7 F 71 18 134/100 H 96 12/04/16 07:30 12/04/16 07:30 12/04/16 07:30 12/04/16 07:30 12/04/16 07:30 Intake and Output: 12/04/16 12/04/16 06:59 18:59 Intake Total 60 500 Output Total 80 205 Balance -20 295 - Medications Medications: Current Medications Aspirin (Aspirin Chewable) 81 mg PO DAILY [facility] Last Admin: 12/03/16 09:36 Dose: Not Given Atenolol (Tenormin) 12.5 mg PO BID [facility] Last Admin: 12/03/16 17:23 Dose: Not Given Calcium Acetate (Phoslo) 667 mg PO WM [facility] Last Admin: 12/03/16 17:22 Dose: Not Given Cholecalciferol (Vitamin D) 2,000 iu PO DAILY [facility] Last Admin: 12/03/16 09:24 Dose: Not Given Clonazepam (Klonopin) 4 mg PO HS [facility] PRN Reason: Protocol Last Admin: 12/03/16 23:31 Dose: Not Given Diltiazem HCl (Cardizem) 30 mg PO TID [facility] Last Admin: 11/29/16 09:47 Dose: 30 mg Furosemide (Lasix) 60 mg IVP Q8H [facility] Last Admin: 12/04/16 06:26 Dose: 60 mg Home Med (Home Med) 1 unit PO DAILY [facility] Last Admin: 12/03/16 09:41 Dose: Not Given Meropenem 500 mg/ Sodium (Chloride) 100 mls @ 100 mls/hr IVPB Q12 [facility] PRN Reason: Protocol Stop: 12/10/16 16:40 Last Admin: 12/03/16 17:21 Dose: Not Given Levalbuterol HCl (Xopenex) 0.63 mg IH [id number] [facility] Last Admin: 12/04/16 07:15 Dose: 0.63 mg Lorazepam (Ativan) 0.5 mg PO BID [facility] PRN Reason: Protocol Last Admin: 12/03/16 19:19 Dose: Not Given Mupirocin (Bactroban Ointment) 0.5 gm TOP TID [facility] Last Admin: 12/03/16 19:35 Dose: 1 appl Pantoprazole Sodium (Protonix Ec Tab) 40 mg PO 0630 [facility] Last Admin: 12/04/16 06:33 Dose: Not Given Rivastigmine (Exelon Cap) 4.5 mg PO BID [facility] Last Admin: 12/03/16 19:19 Dose: Not Given Ropinirole HCl (Requip) 8 mg PO HS [facility] Last Admin: 12/03/16 23:32 Dose: Not Given - Labs Labs: 12/04/16 06:40 12/04/16 06:40 PT 11.2 Seconds (9.9-11.8) 11/28/16 22:20 INR 1.04 (0.93-1.08) 11/28/16 22:20 APTT 24.6 Seconds (23.7-30.8) 11/28/16 22:20 - Constitutional Appears: Toxic - Head Exam Head Exam: NORMAL INSPECTION - Eye Exam Eye Exam: absent: Scleral icterus - ENT Exam ENT Exam: Mucous Membranes Moist - Neck Exam Neck Exam: Normal Inspection - Respiratory Exam Additional comments: Marked L sided rhales; decreased sounds on R; - Cardiovascular Exam Cardiovascular Exam: Tachycardia Additional comments: Irregular rate; - GI/Abdominal Exam GI & Abdominal Exam: Soft. 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; oligo-anuric renal failure; ATN complicated by cardiorenal etiology in setting of marked volume overload and mitral regurg; re-started emergently on HD late this afternoon via R IJ tunneled catheter placed by IR; very difficult HD session with intermittent severe hypotension (with SBP in 60' s and DBP in 20's-30's)but HD continued for primary goal of ultrafiltration in order to improve cardiac status; able to initially achieve some UF with goal subsequenly cut back, net volume removed estimated at ~1500 cc; also did purposefully inefficient dialysis to avoid further hypotension and dialysis disqulibrium in patient who has been uremic for a prolonged period; -next HD for tomorrow, goal UF 2L Status: Acute (2) Acute hypercapnic respiratory failure Assessment & Plan: Ventilatory defect likely worsened by bilateral pleural effusions, now s/p L thoracentesis with about 700 cc drained; should repeat vbg; Status: Acute (3) SIRS (systemic inflammatory response syndrome) Assessment & Plan: Started on meropenem today by ID; should dose at q24h for HD; Status: Acute (4) HTN (hypertension) Assessment & Plan: Hypotension; on atenolol for afib rate control as well; should continue once BP stabilizes; Status: Acute (5) Hyperkalemia Assessment & Plan: Managed medically initially; will normalize with HD; Status: Acute (6) Atrial fibrillation Assessment & Plan: w/ RVR today, likely worsened by volume overload; UF on HD should help Status: Acute - Assessment and Plan (Free Text) Assessment: Patient DNR/DNI with overall poor prognosis but decision made to pursue HD with the understanding explained to family that this may help stabilize critically ill patient but cannot guarantee that she will not be dialysis dependent lifelong due to her underlying heart condition; Critical care time assessing patient, coordinating hemodialysis catheter placement, coordinating and supervising hemodialysis > 60 minutes;
[2016-12-04] MEDS: Meropenem 500 MG in Sodium Chloride 0.9% 100 ML IVPB SCH ×2 (10:48→21:49)
[2016-12-04] MEDS: SELENIUM 200 MCG PO SCH (11:02)
--- NOTE | 2016-12-04 11:19 | PN ---
DATE: 12/04/2016 The patient is seen in room 562, bed 1. The patient's son and at bedside. The patient received hemodialysis yesterday for 3 hours and 1.5 liter fluid removal was done. The patient seen by case management, discharge. If the patient requires dialysis, patient may not be able to go back to [facility]. Family aware of that. According to the nurses' note, the patient slept well. The patient had no urine output. Colostomy was working without any adverse event. The patient required BiPAP during the night. PHYSICAL EXAMINATION: VITAL SIGNS: T-max 97.6. Pulse 70-71; blood pressure 130/100, 110/41, 97/41, 117/37, 107/34, 114/47; respiration 18, O2 sat is 96%-95%. The patient has been intermittently on nasal cannula and BiPAP. INTAKE AND OUTPUT: Reviewed. HEAD: Normocephalic, atraumatic. EENT: Shows pinkish, pale conjunctivae. Positive nasal bridge skin breakdown noted. NECK: Positive right neck dialysis catheter. Positive right upper extremity PICC line. CHEST: Positive left upper chest pacemaker. Positive kyphosis. LUNGS: Positive rhonchi upper lung walls noted, left more than the right. CARDIOVASCULAR: S1, S2, regular rhythm. Positive systolic murmur right second intercostal space, left sternal border, left second intercostal space. ABDOMEN: Soft, positive left-sided colostomy, protuberant abdomen. GENITALIA: Female. Positive Ramirez catheter without any urine noticed in the bag. EXTREMITIES: Still shows positive pitting edema of the lower extremity, positive swelling of the upper extremity. MUSCULOSKELETAL: Shows a body mass index of 30. GAIT: Not tested. The patient is lying in the bed. DIAGNOSTICS: WBC 12.5, hemoglobin and hematocrit 9.6 and 31.2, platelets 182, granulocytes 85% segs. Sodium 146, potassium 4.4, chloride 114, CO2 of 23, anion gap 13, BUN 77, creatinine 2.9, potassium 4.4, GFR 19, calcium 8.1, phosphorus is 7.5. LFTs shows alkaline phosphatase 200, procalcitonin level yesterday was 0.63, which went up to 0.63 from 0.21. The patient's chest x-ray from 12/03/2016 reviewed. IMPRESSION AND PLAN: 1. Acute renal failure, acute kidney injury with nonhemolyzed hyperkalemia and acute tubular necrosis. 2. Status post hemodialysis. 3. Status post right internal jugular [place] and dialysis catheter placement. 4. Status post ultrasound guided left thoracentesis with removal of 700 mL of pleural fluid. 5. Hypertension. 6. Hypoxemia. 7. Acute hypercarbic hypercapnic BiPAP-requiring respiratory failure. 8. Left upper lobe healthcare-associated pneumonia. 9. Bilateral pleural effusion with improvement. 10. Cardiomegaly. 11. Status post left-sided permanent pacemaker implant. 12. Severe deconditioning. 13. Vancomycin-resistant Enterococcus faecium urinary tract infection and funguria. 14. Leukocytosis with granulocytosis. 15. Non-hemolyzed hyperkalemia. 16. Hyperphosphatemia. 17. Transaminitis. 18. Hyperprocalcitoninemia. 19. Vancomycin-resistant Enterococcus faecium urinary tract infection and funguria with proteinuria, hematuria, pyuria, and bacteriuria. 20. Severe deconditioning, gait dysfunction and bedridden status. 21. Possible functional quadriplegia. 22. Encephalopathy. 23. New left upper lobe healthcare-associated pneumonia. 24. Fluid and volume overload. 25. Atrial fibrillation with rapid ventricular response and slow ventricular response with long pauses and periods of asystole. 26. Status post left upper chest permanent pacemaker implant. 27. Oliguric/anuric renal failure with acute tubular necrosis with cardiorenal syndrome. 28. Episodic hypotension. 29. Systemic inflammatory response syndrome with hyperprocalcitoninemia. 30. Non-hemolyzed hyperkalemia. 31. Bilateral lower extremity venous stasis. 32. History of anxiety, depression, dementia, Parkinson's disease. 33. Hyperphosphatemia. 34. Hypovitaminosis D. 1. Worsening acute renal failure with recurrent refractory non-hemolyzed hyperkalemia. 2. Persistent refractory leukocytosis with granulocytosis. 3. Normocytic anemia. 4. Metabolic acidosis with hypercarbia and acute hypercarbic hypercapnic respiratory failure. 5. Underlying chronic kidney disease stage IV. 6. Hyperphosphatemia. 7. Transaminitis. 8. Hypoalbuminemia. 9. Vancomycin-resistant Enterococcus faecium and yeast species questionable urinary tract infection with proteinuria, hematuria, pyuria, bacteriuria, funguria. 10. Status post ultrasound-guided left thoracentesis with drainage of 700 mL of pleural fluid. 11. Left upper lobe patchy new infiltrate. 12. Decreasing bilateral pleural effusion with cardiomegaly. 13. Status post permanent pacemaker implant. 14. Post-pacemaker left apical pneumothorax. 15. Hypercarbic respiratory failure. 16. Status post loop colostomy with removal of the ostomy bridge. 17. Transient hypotension. 18. Acute renal failure, acute kidney injury with underlying chronic kidney disease with acute tubular necrosis with granular casts in the urine. 19. Possible cardiorenal syndrome. 20. Non-gap metabolic acidosis. 21. History of atrial fibrillation with rapid ventricular response and slow ventricular response with periods of asystole and long pauses. 22. Acute hypercapnic respiratory failure secondary to volume overload. 23. Status post left apical pneumothorax. 24. History of rectovesical, rectovaginal fistula. 25. Parkinson's disease. 26. History of dementia, history of atrial fibrillation, history of systolic congestive heart failure. 1. Acute renal failure with worsening and decreasing urine output. 2. Volume overload with anasarca and bilateral pleural effusions. 3. Lethargy. 4. Transient hypotension. 5. History of hypertension. 6. Leukocytosis with granulocytosis. 7. Macrocytic anemia. 8. Hypercarbic and hypercapnic respiratory failure. 9. Non-hemolyzed hyperkalemia. 10. Acute renal failure, acute kidney injury with underlying chronic kidney disease stage IV/V. 11. Hyperphosphatemia. 12. Elevated alkaline phosphatase. 13. Hypoalbuminemia. 14. Vancomycin-resistant Enterococcus faecium urinary tract infection and funguria and gram-positive cocci urinary tract infection. 15. Severe gait dysfunction and bedridden status and severe deconditioning. 16. Functional quadriplegia. 17. Bilateral pleural effusion with bibasilar atelectasis and cardiomegaly. 18. Possible hepatic cirrhosis with perihepatic, perisplenic ascites and extensive anasarca with third spacing and volume overload. 19. Status post colostomy. 20. Bibasilar atelectasis. 21. Status post right upper extremity peripherally inserted central catheter line placement. 22. History of dementia. 23. Left ventricular ejection fraction of 40% with moderately impaired left ventricular systolic function and septal hypokinesis. 24. Moderate to severely sclerotic aortic valve with moderate aortic regurgitation. 25. Severe mitral regurgitation with moderately thickened mitral valve. 26. Moderate pulmonary arterial hypertension. 27. Bilateral pleural effusion, left more than the right. 28. Status post permanent pacemaker. 29. Severe deconditioning. 30. Acute tubular necrosis. 31. History of dementia. 32. History of paroxysmal atrial fibrillation with rapid ventricular response and slow ventricular response with long pauses and periods of asystole. 33. History of dementia, Parkinson disease, anxiety, depression. 34. Status post permanent pacemaker implant. 35. Post permanent pacemaker left apical pneumothorax. 36. Hypothermia. 37. Systemic inflammatory response syndrome. 38. Deconditioning. 39. History of anxiety disorder. 40. Non-hemolyzed hyperkalemia. 41. Hyperphosphatemia. 42. Hypovitaminosis D. 1. Recurrent acute renal failure. 2. Recurrent non-hemolyzed hyperkalemia. 3. Status post right upper extremity peripherally-inserted central catheter line placement for poor intravenous access. 4. Vancomycin-resistant enterococcus urinary tract infection and funguria. 5. Systemic inflammatory response syndrome. 6. Acute renal failure with underlying chronic kidney disease stage III/IV. 7. Acute tubular necrosis. 8. Non-hemolyzed hyperkalemia. 9. Third spacing with volume and fluid overload with bilateral pleural effusion and anasarca. 10. Hypercapnic respiratory failure. 11. Leukocytosis with granulocytosis. 12. Normocytic anemia. 13. Non-hemolyzed hyperkalemia. 14. Hyperphosphatemia. 15. Hypoalbuminemia. 16. Funguria. 17. Vancomycin-resistant Enterococcus faecalis faecium, enterococcus faecium urinary tract infection and funguria with proteinuria, hematuria, pyuria, bacteriuria, and funguria. 18. Bilateral pleural effusion with bibasilar atelectasis and cardiomegaly. 19. Questionable and possible cirrhosis with perihepatic and perisplenic ascites with anasarca and third spacing. 20. Right-sided colostomy. 21. Severe deconditioning, gait dysfunction, bedridden status, and functional quadriplegia. 22. Cerebral cortical atrophy of the brain. 23. Microvascular ischemic disease of the brain. 24. Chronic lacunar infarcts and encephalomalacia. 25. Left ventricular ejection fraction of 40% with moderately impaired left ventricular systolic function and septal hypokinesis. 26. Moderate to severely sclerotic aortic valve and moderate aortic regurgitation. 27. Severe mitral regurgitation with moderately thickened mitral valve. 28. Moderate pulmonary hypertension. 29. Large left pleural effusion. 30. 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 31. Post permanent pacemaker implant, left apical pneumothorax. 1. Acute renal failure with worsening underlying chronic kidney disease. 2. Non-hemolyzed hyperkalemia. 3. Hyperphosphatemia. 4. Hypocalcemia. 5. Transaminitis. 6. Elevated lipase, etiology undetermined. 7. Leukocytosis with granulocytosis and normocytic anemia. 8. Macrocytic anemia. 9. Gram-positive cocci urinary tract infection with proteinuria, microscopic hematuria, pyuria, funguria. 10. Gram-positive cocci urinary tract infection. 11. Bilateral pleural effusion with bibasilar compressive atelectasis. 12. Cardiomegaly. 13. Questionable cirrhosis with irregularities of the hepatic margin and perihepatic and perisplenic ascites and extensive anasarca with third spacing. 14. Right-sided colostomy. 15. Severe gait dysfunction and deconditioning and bedridden status. 16. Possible functional quadriplegia. 17. Left ventricular ejection fraction of 40% with concentric left ventricular hypertrophy. 18. Moderately impaired left ventricular systolic function with left ventricular ejection fraction of 40%. 19. Moderately impaired left ventricular systolic function. 20. Moderate to severe aortic valve sclerosis and moderate aortic regurgitation. 21. Severe mitral regurgitation with moderately thickened mitral valve. 22. Moderate pulmonary arterial hypertension. 23. Septal hypokinesis. 24. Moderate aortic regurgitation. 25. Large pleural effusion. 26. Bilateral upper extremity swelling. 27. Poor intravenous access. 28. Cerebral cortical atrophy of the brain with small vessel ischemic disease of the brain and chronic lacunar infarcts and encephalomalacia. 29. Moderately impaired left ventricular systolic function with elevated BNP and systolic congestive heart failure with elevated BNP of 26,000. 30. Macrocytic anemia. 31. Status post non-hemolyzed hyperkalemia. 32. Gram-positive cocci urinary tract infection. 33. History of dementia, Parkinson disease, history of paroxysmal atrial fibrillation with multiple pauses and periods of asystole. 34. Status post permanent pacemaker implant and status post permanent pacemaker implant, left apical pneumothorax. 35. Systemic inflammatory response syndrome. 36. Volume overload with third spacing. 37. Severely debilitated, deconditioning. 38. hyperkalemia. 39. Systemic inflammatory response syndrome. 40. Status post colostomy. 41. History of rectovaginal, rectovesical fistula. 42. History of anxiety disorder, history of dementia, history of Parkinson disease and hypovitaminosis D. 1. Questionable and possible sepsis versus systemic inflammatory response syndrome with hypothermia. 2. Hypotension. 3. Questionable and possible septic shock. 4. Non-hemolyzed hyperkalemia. 5. Acute renal failure with underlying chronic kidney disease. 6. Possible urinary tract infection with pyuria, bacteriuria, proteinuria, hematuria and funguria. 7. Transaminitis. 8. Malnutrition. 9. History of colovesical, colovaginal fistula. 10. History of recurrent sepsis and recurrent urinary tract infection. 11. History of Parkinson's disease, dementia, history of severe gait dysfunction, history of sick sinus syndrome with tachybrady syndrome, history of atrial fibrillation with rapid ventricular response and slow ventricular response with long pauses and periods of asystole. 12. Status post pacemaker implant. 13. History of severe gait dysfunction. 14. Severe deconditioning. 15. Severe gait dysfunction with possible functional quadriplegia. 16. Hypotension. 17. Hyperkalemia. 18. Severe gait dysfunction. 19. Poor intravenous access. 20. Small vessel ischemic disease of the brain. 21. Cerebral cortical atrophy of the brain. 22. Poor intravenous access. PLAN: At this time, I have discussed the patient's overall guarded to poor prognosis with the patient's son and the . According to the patient's son, patient wishes to continue with dialysis treatment at present. CURRENT CONSULTATIONS: 1. Infectious disease. 2. Nephrology. 3. Interventional radiology. 4. Surgery. CURRENT MEDICATIONS: 1. Ecotrin 81 mg daily. 2. Ativan 0.5 twice a day. Hold for sedation and lethargy. 3. The patient is on Bactroban cream to the affected area 3 times a day. 4. Cardizem 30 mg t.i.d. 5. Exelon capsule 4.5 mg twice a day. 6. Selenium 200 mcg daily. 7. The patient is on Klonopin 4 mg at bedtime. 8. The patient is on Lasix 60 mg IV q. 8. 9. Meropenem 500 mg q. 12. 10. PhosLo 667 mg with meals. 11. Protonix 40 mg daily. 12. Requip 8 mg at bedtime. 13. Tenormin 12.5 twice a day. 14. The patient is on meropenem 500 mg q. 12. 15. The patient is on Tenormin 12.5 twice a day. 16. Vancomycin 1 gram, 1 dose was given yesterday. 17. Vitamin D3 2000 units daily. 18. Xopenex 0.63 mg every 6hours. The patient is on BiPAP 12/5 with 50% FIO2 and rate of 18. The patient is on dysphagia modified consistency diet. Out of bed, ADRIANO paulino, SCDs ordered. The patient is awaiting another trial of hemodialysis today as per nephrology. The patient has been ordered physical therapy and occupational therapy. I have advised the patient's son and the to keep in contact with the social work nurse and case management regarding discharge planning. The patient is currently DNR/DNI. Overall, prognosis guarded to extremely poor. Dictated and electronically signed; not read. Rigo Vargas MD cc: [id number] TT: 12/04/2016 11:18:31 Confirmation # [id number] Dictation # [id number] anali GUEVARA
--- NOTE | 2016-12-04 14:04 | PN ---
DATE: 12/04/2016 The patient seen earlier today in 562. The patient's family members are by the bed, in no acute dist ress. The patient is responsive. PHYSICAL EXAMINATION: VITAL SIGNS: Temperature is 97, blood pressure is 130/70, respiratory rate of 16. HEENT: Unremarkable. NECK: Supple. LUNGS: Have decreased breath sounds. HEART: Normal S1, S2. ABDOMEN: Soft, nontender. LABORATORY DATA: Reveals a white count of 12,500, hemoglobin of 9, platelets of 182, BUN of 77, crea tinine of 2.9, procalcitonin is 0.63. Urinalysis is noted. Microbiology reveals VRE. ASSESSMENT AND PLAN: This is an 81-year-old female who has acute respiratory failure due to fluid ov erload and congestive heart failure and acute on chronic renal failure, persistent leukocytosis, card iac arrhythmia, atrial fibrillation, status post pacemaker placement, development of left-sided pneum othorax and rectovesical fistula, is status post loop colostomy, VRE in the urine, probably a coloniz er in this patient with chronic congestive heart failure and Parkinson's. Currently on meropenem day #2. IV vancomycin was given yesterday. We will follow closely with you. Overall prognosis is quite poor. Case discussed with 2 family members who are at bedside at length. Austen Bradford MD cc: [id number] TT: 12/04/2016 14:03:52 Confirmation # [id number] Dictation # [id number] angela
--- NOTE | 2016-12-04 21:00 | PN ---
DATE: 12/04/2016 An 81-year-old female with past medical history of hypertension, CHF with systolic dysfunction, CKD s tage II-IIIA, colovesical/colovaginal fistula, status post diverting loop colostomy, admitted with hadley porras, found to have acute hypercapnic respiratory failure and persistent acute renal failure, nephr ology consulted for the same. Per family, patient is more alert today, tolerated diet earlier this morning. Nursing staff also say ing patient is more alert. The patient denies any complaints, denies shortness of breath. PHYSICAL EXAMINATION: VITAL SIGNS: Blood pressure 105/39, heart rate 78, respirations 18, temperature 97.8, O2 sat 91%. GENERAL: No acute distress, mildly lethargic, able to respond appropriately. HEENT: Moist mucous membranes. Nonicteric. CHEST: Clear to auscultation on anterior exam. No wheezes, no rhonchi. HEART: Systolic murmur present. Regular rate and rhythm. ABDOMEN: Soft, nontender, nondistended. GENITOURINARY: No blood or distention. EXTREMITIES: Markedly edematous bilateral upper and lower extremities. PSYCHIATRIC: Normal mood, normal affect. LABORATORY DATA: WBC 12.5, hemoglobin 9.6, hematocrit 31.2, platelets 182. Chemistry: Sodium 146, potassium 4.4, chloride 114, bicarbonate 23, BUN 77, creatinine 2.9, calcium 8.1, phosphorus 7.5, alb umin 2.7. ASSESSMENT: 1. Acute renal failure, acute kidney injury on chronic kidney disease, secondary to acute tubular ne crosis with superimposed cardiorenal etiology, restarted on hemodialysis yesterday with improved hemo dynamics following dialysis, which is consistent with cardiorenal etiology. Underwent second hemodia lysis session today, tolerated much better with less hypotension, able to achieve 2 liters ultrafiltr ation. Plan: Will do a full hemodialysis session tomorrow with full blood flow and using a larger di alyzer size to achieve better clearances and aim for additional 2 liters ultrafiltration to help opti andres cardiac status. 2. Hyperkalemia, being managed with hemodialysis. 3. Acute decompensated systolic congestive heart failure, severe exacerbation. The patient hemodyna mically much improved after having volume removed in the setting of failing diuretic treatment. We w ill continue with hemodialysis and ultrafiltration. Long-term prognosis is guarded, however, in the setting of what is being reported as severe mitral regurg on echo and already known systolic dysfunct ion, especially as the patient is likely not a candidate for any kind of valve intervention. 4. Systemic inflammatory response syndrome. The patient continues to have mild leukocytosis, procal citonin level mildly elevated. The patient started on meropenem yesterday at 500 mg q. 12 hours. S ayah consider redosed to q. 24 hours for hemodialysis dosing. 5. Hypercapnic respiratory failure. Need repeat venous gas to assess improvement after the patient underwent left thoracentesis with 700 mL drained. 6. Atrial fibrillation. Currently on atenolol 12.5 mg b.i.d. Ventricular rate currently controlled . Should continue the same. Avoid adding further agents as this will cause more hypotension, atrial fibrillation. Will benefit from volume removal as well. Wally Ash MD cc: [id number] TT: 12/04/2016 20:59:25 Confirmation # [id number] Dictation # [id number] angela
[2016-12-04 23:01] LABS: VENOUS BLOOD GAS BASE EXCESS -0.4 mmol/L (0.0-2.0); VENOUS BLOOD PH 7.24 (7.32-7.43)
[2016-12-05] MEDS: Levalbuterol 0.63 MG/3 ML Inhal Soln UD IH SCH ×4 (01:09→20:18)
[2016-12-05] MEDS: Pantoprazole 40 mg EC Tab PO SCH (06:12)
[2016-12-05 07:20] LABS: ADD MANUAL DIFF? NO
[2016-12-05 07:24] LABS: BASO # 0.01 K/mm3 (0.0-2.0); BASO % 0.1 % (0.0-3.0); EOS # 0.1 (0.0-0.7); GRAN # 8.14 (1.4-6.5); GRAN % 75.7 % (50.0-68.0); HEMATOCRIT 28.1 % (36.0-48.0); LYMPH # 1.7 (1.2-3.4); LYMPH % 15.9 % (22.0-35.0); MEAN CELL VOLUME 103.3 fL (80.0-105.0); MEAN CORPUSCULAR HEMOGLOBIN 31.6 pg (25.0-35.0); MEAN CORPUSCULAR HGB CONC 30.6 g/dl (31.0-37.0); MEAN PLATELET VOLUME 10.9 fl (7.0-11.0); MONO # 0.8 (0.1-0.6); MONO % 7.3 % (1.0-6.0); PLATELET COUNT 161 10^3/uL (120.0-450.0); RED CELL DISTRIBUTION WIDTH 20.5 % (11.5-14.5); WHITE BLOOD COUNT 10.8 10^3/ul (4.5-11.0)
[2016-12-05 07:44] LABS: BILIRUBIN,DIRECT 0.3 mg/dL (0.0-0.4); BILIRUBIN,TOTAL 0.4 mg/dL (0.2-1.3); CALCIUM 7.6 mg/dL (8.4-10.5); MAGNESIUM 1.9 mg/dL (1.7-2.2); PHOSPHOROUS 5.4 mg/dL (2.5-4.5); POTASSIUM 3.9 mmol/L (3.6-5.0); TOTAL PROTEIN 4.9 g/dL (5.8-8.3)
--- NOTE | 2016-12-05 08:35 | PN ---
DATE: 12/05/2016 The patient is seen lying in bed in room 562, bed 1. The patient is seen lying in the bed in room 562, bed 1. The patient is comfortable, awake. Overnight nurse's notes were reviewed. The patient underwent hemodialysis with removal of 2 liters of ultrafiltration and tolerated the dialysis without any adverse event. PHYSICAL EXAMINATION: VITAL SIGNS: T-max 97.8. Heart rate in high 70s-80s. Blood pressure is, in the last 24 hours, averaging around systolic low 100s to 92 systolic. Respirations 20, O2 sat is mid 90s to 100%. GENERAL: The patient is lying in the bed, awake, alert, on a Ventimask. The patient is responsive. INTAKE AND OUTPUT: Could not be assessed correctly. Yesterday's intake over the last 24 hours is 60+900+540, output is 80+205+100. HEAD: Normocephalic, atraumatic. HEENT: Shows pinkish, pale conjunctivae. NECK: Positive right IJ dialysis catheter noted. Right-sided dialysis catheter noted. CHEST: Kyphosis. LUNGS: Shows occasional rhonchi upper lung walls anteriorly, decreased breath sounds at the bases, left more than the right. CARDIOVASCULAR: S1, S2, regular rhythm, positive systolic murmur right second intercostal space, left sternal border, left second intercostal space. ABDOMEN: Protuberant, positive colostomy, right-sided colostomy. Protuberant abdomen. GENITALIA: Female. Positive Ramirez catheter. Not much urine noted in the Ramirez catheter. EXTREMITIES: Show pitting edema of the lower extremities. ADRIANO stockings, SCDs missing. Positive swelling of the upper extremity. Positive right upper extremity PICC line noted. MUSCULOSKELETAL: Shows a body mass index of 31. GAIT: Not tested. DIAGNOSTICS: 12/05: WBC 10.2, hemoglobin/hematocrit 8.6 and 28.0, platelets 161 , granulocytes 76%. The patient had a VBG done yesterday, which shows a pH of 7.24, which has improved from the pH of 7.05 and 7.08, pO2 was 162, pCO2 is still in 60s, bicarb is 29. The patient's chemistry from today is still pending. IMPRESSION AND PLAN: 1. Hypotension with periods and episodic transient hypertension. 2. Hypoxemia. 3. Leukocytosis with granulocytosis. 4. Decreasing hemoglobin and hematocrit with normocytic anemia. 5. Granulocytosis. 6. Acute hypercapneic, hypercarbic respiratory failure. 7. Metabolic acidosis and non-hemolyzed hyperkalemia. 8. Acute renal failure, acute kidney injury and acute tubular necrosis. 9. Cardiorenal syndrome. 10. Transaminitis. 11. Hypoalbuminemia. 12. Hyperprocalcitonemia. 13. Vancomycin-resistant Enterococcus faecium urinary tract infection and funguria and proteinuria, hematuria, pyuria, bacteriuria and funguria. 14. Status post right upper extremity peripherally inserted central catheter line placement. 15. Right internal jugular dialysis catheter placement. 16. Status post ultrasound-guided left thoracentesis, removal of 700 mL of fluid. 17. Acute renal failure, acute kidney injury and chronic kidney disease stage IV. 18. Acute tubular necrosis. 19. Cardiorenal syndrome. 20. Status post hemodialysis. 21. Status post hemodialysis and ultrafiltration. 22. Volume overload and third spacing. 23. Atrial fibrillation with rapid ventricular response and slow ventricular response with long pauses and asystole. 24. Persistent leukocytosis. 25. Status post left upper chest permanent pacemaker implant. 26. Post-pacemaker implant left apical pneumothorax. 27. History of rectovesical, rectovaginal fistula, status post loop colostomy. 28. Questionable left upper lobe healthcare-associated pneumonia. 29. Bilateral pleural effusion. 30. Hypoxemia. 31. History of anxiety, depression, dementia, Parkinson disease. 32. Hyperphosphatemia. 33. Hypovitaminosis D. 1. Acute renal failure, acute kidney injury with nonhemolyzed hyperkalemia and acute tubular necrosis. 2. Status post hemodialysis. 3. Status post right internal jugular [place] and dialysis catheter placement. 4. Status post ultrasound guided left thoracentesis with removal of 700 mL of pleural fluid. 5. Hypertension. 6. Hypoxemia. 7. Acute hypercarbic hypercapnic BiPAP-requiring respiratory failure. 8. Left upper lobe healthcare-associated pneumonia. 9. Bilateral pleural effusion with improvement. 10. Cardiomegaly. 11. Status post left-sided permanent pacemaker implant. 12. Severe deconditioning. 13. Vancomycin-resistant Enterococcus faecium urinary tract infection and funguria. 14. Leukocytosis with granulocytosis. 15. Non-hemolyzed hyperkalemia. 16. Hyperphosphatemia. 17. Transaminitis. 18. Hyperprocalcitoninemia. 19. Vancomycin-resistant Enterococcus faecium urinary tract infection and funguria with proteinuria, hematuria, pyuria, and bacteriuria. 20. Severe deconditioning, gait dysfunction and bedridden status. 21. Possible functional quadriplegia. 22. Encephalopathy. 23. New left upper lobe healthcare-associated pneumonia. 24. Fluid and volume overload. 25. Atrial fibrillation with rapid ventricular response and slow ventricular response with long pauses and periods of asystole. 26. Status post left upper chest permanent pacemaker implant. 27. Oliguric/anuric renal failure with acute tubular necrosis with cardiorenal syndrome. 28. Episodic hypotension. 29. Systemic inflammatory response syndrome with hyperprocalcitoninemia. 30. Non-hemolyzed hyperkalemia. 31. Bilateral lower extremity venous stasis. 32. History of anxiety, depression, dementia, Parkinson's disease. 33. Hyperphosphatemia. 34. Hypovitaminosis D. 1. Worsening acute renal failure with recurrent refractory non-hemolyzed hyperkalemia. 2. Persistent refractory leukocytosis with granulocytosis. 3. Normocytic anemia. 4. Metabolic acidosis with hypercarbia and acute hypercarbic hypercapnic respiratory failure. 5. Underlying chronic kidney disease stage IV. 6. Hyperphosphatemia. 7. Transaminitis. 8. Hypoalbuminemia. 9. Vancomycin-resistant Enterococcus faecium and yeast species questionable urinary tract infection with proteinuria, hematuria, pyuria, bacteriuria, funguria. 10. Status post ultrasound-guided left thoracentesis with drainage of 700 mL of pleural fluid. 11. Left upper lobe patchy new infiltrate. 12. Decreasing bilateral pleural effusion with cardiomegaly. 13. Status post permanent pacemaker implant. 14. Post-pacemaker left apical pneumothorax. 15. Hypercarbic respiratory failure. 16. Status post loop colostomy with removal of the ostomy bridge. 17. Transient hypotension. 18. Acute renal failure, acute kidney injury with underlying chronic kidney disease with acute tubular necrosis with granular casts in the urine. 19. Possible cardiorenal syndrome. 20. Non-gap metabolic acidosis. 21. History of atrial fibrillation with rapid ventricular response and slow ventricular response with periods of asystole and long pauses. 22. Acute hypercapnic respiratory failure secondary to volume overload. 23. Status post left apical pneumothorax. 24. History of rectovesical, rectovaginal fistula. 25. Parkinson's disease. 26. History of dementia, history of atrial fibrillation, history of systolic congestive heart failure. 1. Acute renal failure with worsening and decreasing urine output. 2. Volume overload with anasarca and bilateral pleural effusions. 3. Lethargy. 4. Transient hypotension. 5. History of hypertension. 6. Leukocytosis with granulocytosis. 7. Macrocytic anemia. 8. Hypercarbic and hypercapnic respiratory failure. 9. Non-hemolyzed hyperkalemia. 10. Acute renal failure, acute kidney injury with underlying chronic kidney disease stage IV/V. 11. Hyperphosphatemia. 12. Elevated alkaline phosphatase. 13. Hypoalbuminemia. 14. Vancomycin-resistant Enterococcus faecium urinary tract infection and funguria and gram-positive cocci urinary tract infection. 15. Severe gait dysfunction and bedridden status and severe deconditioning. 16. Functional quadriplegia. 17. Bilateral pleural effusion with bibasilar atelectasis and cardiomegaly. 18. Possible hepatic cirrhosis with perihepatic, perisplenic ascites and extensive anasarca with third spacing and volume overload. 19. Status post colostomy. 20. Bibasilar atelectasis. 21. Status post right upper extremity peripherally inserted central catheter line placement. 22. History of dementia. 23. Left ventricular ejection fraction of 40% with moderately impaired left ventricular systolic function and septal hypokinesis. 24. Moderate to severely sclerotic aortic valve with moderate aortic regurgitation. 25. Severe mitral regurgitation with moderately thickened mitral valve. 26. Moderate pulmonary arterial hypertension. 27. Bilateral pleural effusion, left more than the right. 28. Status post permanent pacemaker. 29. Severe deconditioning. 30. Acute tubular necrosis. 31. History of dementia. 32. History of paroxysmal atrial fibrillation with rapid ventricular response and slow ventricular response with long pauses and periods of asystole. 33. History of dementia, Parkinson disease, anxiety, depression. 34. Status post permanent pacemaker implant. 35. Post permanent pacemaker left apical pneumothorax. 36. Hypothermia. 37. Systemic inflammatory response syndrome. 38. Deconditioning. 39. History of anxiety disorder. 40. Non-hemolyzed hyperkalemia. 41. Hyperphosphatemia. 42. Hypovitaminosis D. 1. Recurrent acute renal failure. 2. Recurrent non-hemolyzed hyperkalemia. 3. Status post right upper extremity peripherally-inserted central catheter line placement for poor intravenous access. 4. Vancomycin-resistant enterococcus urinary tract infection and funguria. 5. Systemic inflammatory response syndrome. 6. Acute renal failure with underlying chronic kidney disease stage III/IV. 7. Acute tubular necrosis. 8. Non-hemolyzed hyperkalemia. 9. Third spacing with volume and fluid overload with bilateral pleural effusion and anasarca. 10. Hypercapnic respiratory failure. 11. Leukocytosis with granulocytosis. 12. Normocytic anemia. 13. Non-hemolyzed hyperkalemia. 14. Hyperphosphatemia. 15. Hypoalbuminemia. 16. Funguria. 17. Vancomycin-resistant Enterococcus faecalis faecium, enterococcus faecium urinary tract infection and funguria with proteinuria, hematuria, pyuria, bacteriuria, and funguria. 18. Bilateral pleural effusion with bibasilar atelectasis and cardiomegaly. 19. Questionable and possible cirrhosis with perihepatic and perisplenic ascites with anasarca and third spacing. 20. Right-sided colostomy. 21. Severe deconditioning, gait dysfunction, bedridden status, and functional quadriplegia. 22. Cerebral cortical atrophy of the brain. 23. Microvascular ischemic disease of the brain. 24. Chronic lacunar infarcts and encephalomalacia. 25. Left ventricular ejection fraction of 40% with moderately impaired left ventricular systolic function and septal hypokinesis. 26. Moderate to severely sclerotic aortic valve and moderate aortic regurgitation. 27. Severe mitral regurgitation with moderately thickened mitral valve. 28. Moderate pulmonary hypertension. 29. Large left pleural effusion. 30. 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 31. Post permanent pacemaker implant, left apical pneumothorax. 1. Acute renal failure with worsening underlying chronic kidney disease. 2. Non-hemolyzed hyperkalemia. 3. Hyperphosphatemia. 4. Hypocalcemia. 5. Transaminitis. 6. Elevated lipase, etiology undetermined. 7. Leukocytosis with granulocytosis and normocytic anemia. 8. Macrocytic anemia. 9. Gram-positive cocci urinary tract infection with proteinuria, microscopic hematuria, pyuria, funguria. 10. Gram-positive cocci urinary tract infection. 11. Bilateral pleural effusion with bibasilar compressive atelectasis. 12. Cardiomegaly. 13. Questionable cirrhosis with irregularities of the hepatic margin and perihepatic and perisplenic ascites and extensive anasarca with third spacing. 14. Right-sided colostomy. 15. Severe gait dysfunction and deconditioning and bedridden status. 16. Possible functional quadriplegia. 17. Left ventricular ejection fraction of 40% with concentric left ventricular hypertrophy. 18. Moderately impaired left ventricular systolic function with left ventricular ejection fraction of 40%. 19. Moderately impaired left ventricular systolic function. 20. Moderate to severe aortic valve sclerosis and moderate aortic regurgitation. 21. Severe mitral regurgitation with moderately thickened mitral valve. 22. Moderate pulmonary arterial hypertension. 23. Septal hypokinesis. 24. Moderate aortic regurgitation. 25. Large pleural effusion. 26. Bilateral upper extremity swelling. 27. Poor intravenous access. 28. Cerebral cortical atrophy of the brain with small vessel ischemic disease of the brain and chronic lacunar infarcts and encephalomalacia. 29. Moderately impaired left ventricular systolic function with elevated BNP and systolic congestive heart failure with elevated BNP of 26,000. 30. Macrocytic anemia. 31. Status post non-hemolyzed hyperkalemia. 32. Gram-positive cocci urinary tract infection. 33. History of dementia, Parkinson disease, history of paroxysmal atrial fibrillation with multiple pauses and periods of asystole. 34. Status post permanent pacemaker implant and status post permanent pacemaker implant, left apical pneumothorax. 35. Systemic inflammatory response syndrome. 36. Volume overload with third spacing. 37. Severely debilitated, deconditioning. 38. hyperkalemia. 39. Systemic inflammatory response syndrome. 40. Status post colostomy. 41. History of rectovaginal, rectovesical fistula. 42. History of anxiety disorder, history of dementia, history of Parkinson disease and hypovitaminosis D. 1. Questionable and possible sepsis versus systemic inflammatory response syndrome with hypothermia. 2. Hypotension. 3. Questionable and possible septic shock. 4. Non-hemolyzed hyperkalemia. 5. Acute renal failure with underlying chronic kidney disease. 6. Possible urinary tract infection with pyuria, bacteriuria, proteinuria, hematuria and funguria. 7. Transaminitis. 8. Malnutrition. 9. History of colovesical, colovaginal fistula. 10. History of recurrent sepsis and recurrent urinary tract infection. 11. History of Parkinson's disease, dementia, history of severe gait dysfunction, history of sick sinus syndrome with tachybrady syndrome, history of atrial fibrillation with rapid ventricular response and slow ventricular response with long pauses and periods of asystole. 12. Status post pacemaker implant. 13. History of severe gait dysfunction. 14. Severe deconditioning. 15. Severe gait dysfunction with possible functional quadriplegia. 16. Hypotension. 17. Hyperkalemia. 18. Severe gait dysfunction. 19. Poor intravenous access. 20. Small vessel ischemic disease of the brain. 21. Cerebral cortical atrophy of the brain. 22. Poor intravenous access. PLAN: At this time, patient was seen by nephrology, infectious disease. Their recommendations were noted. The patient is to get hemodialysis again today. The patient has been ordered serial labs. CURRENT CONSULTATIONS: Infectious disease, nephrology, interventional radiology , surgery. Referral to case management for discharge planning. The patient has been ordered transfusion of 1 unit of PRBC on hemodialysis as patient's hemoglobin has dropped to 8.6 from baseline of 11 grams. CURRENT MEDICATIONS: Ecotrin 81 mg daily, Ativan 0.5 b.i.d. with holding parameters, Bactroban cream to the affected area 3 times a day, Exelon tablets 4.5 mg twice a day, selenium 200 mcg daily, Klonopin 4 mg at bedtime. The patient is being maintained on Lasix 60 mg IV q. 8 hours by the nephrology. The patient is on meropenem 500 mg IV q. 12, PhosLo 667 mg with meals, Protonix 40 mg daily, Requip 8 mg at bedtime, Tenormin 12.5 twice a day, vitamin D3 2000 units daily, Xopenex nebulizer 0.63 mg every 6 hours. Repeat chest x-ray ordered. The patient is on BiPAP at 12/5, FiO2 50%, rate of 18. The patient is also on Ventimask 50%, humidified. The patient is on dysphagia modified consistency diet. The patient has been reordered ADRIANO stockings, SCDs, head of the bed elevated. The patient has been ordered out of bed. Physical and occupational therapy ordered. The patient's family has been updated about patient's overall guarded to very poor prognosis with multisystem organ dysfunction and failure and all questions and concerns answered to their satisfaction. I have advised the patient's family to contact family welfare social work professor regarding discharge planning. The patient is presently DNR/DNI. Dictated and electronically signed, not read. Rigo Vargas MD cc: [id number] TT: 12/05/2016 08:34:41 Confirmation # [id number] Dictation # [id number] en MTDD
--- NOTE | 2016-12-05 08:47 | RAD ---
HISTORY: CHF/PNUEMONIA MI COMPARISON: 12/03/2016 FINDINGS: LUNGS: No active pulmonary disease. PLEURA: Small pleural effusions left greater than right CARDIOVASCULAR: Moderate cardiomegaly OSSEOUS STRUCTURES: No significant abnormalities. VISUALIZED UPPER ABDOMEN: Normal. OTHER FINDINGS: Right internal jugular dialysis catheter IMPRESSION: Cardiomegaly. Bilateral pleural effusions
[2016-12-05] MEDS: SELENIUM 200 MCG PO SCH (10:14)
[2016-12-05] MEDS: Meropenem 500 MG in Sodium Chloride 0.9% 100 ML IVPB SCH ×2 (10:15→21:59)
--- NOTE | 2016-12-05 22:07 | PN ---
DATE: 12/05/2016 The patient is in bed in no acute distress, nontoxic. PHYSICAL EXAMINATION: VITAL SIGNS: Temperature is 97, blood pressure is 100/40, respiratory rate of 20, heart rate of 101. HEENT: Unremarkable. NECK: Supple. LUNGS: Decreased breath sounds. HEART: Normal S1, S2. ABDOMEN: Soft. Nontender. LABORATORY DATA: Reveals the white count is down to10,000, hemoglobin of 8. BUN of 54, creatinine o f 2.6, procalcitonin 0.63. Microbiology VRE in the urine. Blood cultures are negative. The p atient's chest x-ray, no active disease. CURRENT MEDICATIONS: Reveals the patient to be on meropenem. ASSESSMENT AND PLAN: This is an 81-year-old female with acute respiratory failure due to fluid overl oad, congestive heart failure, [id number] renal failure, persistent leukocytosis, cardiac arrhy thmias, atrial fibrillation, status post pacemaker placement, left-sided pneumothorax, history of rectovesical fistula, status post loop colostomy, VRE in the urine, probably a colonizer, in a pat ient with congestive heart failure and Parkinson, day #3 of meropenem. The patient was seen earlier this morning. She appears much, much older than her stated age, and a repeat urine culture has multi ple species. Austen Bradford MD cc: [id number] TT: 12/05/2016 22:06:28 Confirmation # [id number] Dictation # [id number] dn
--- NOTE | 2016-12-05 23:59 | CP.PCM.PN ---
Subjective - Date & Time of Evaluation Date of Evaluation: 12/05/16 Time of Evaluation: 22:00 - Subjective Subjective: Denies any complaints; Objective - Vital Signs/Intake and Output Vital Signs (last 24 hours): Temp Pulse Resp BP Pulse Ox 98.6 F 71 20 114/54 L 100 12/05/16 23:43 12/05/16 23:43 12/05/16 23:43 12/05/16 23:43 12/05/16 07:22 Intake and Output: 12/05/16 12/06/16 18:59 06:59 Intake Total 240 560 Output Total 100 125 Balance 140 435 - Medications Medications: Current Medications Aspirin (Aspirin Chewable) 81 mg PO DAILY [facility] Last Admin: 12/05/16 10:13 Dose: 81 mg Atenolol (Tenormin) 12.5 mg PO BID [facility] Last Admin: 12/05/16 18:22 Dose: Not Given Calcium Acetate (Phoslo) 667 mg PO WM [facility] Last Admin: 12/05/16 18:21 Dose: 667 mg Cholecalciferol (Vitamin D) 2,000 iu PO DAILY [facility] Last Admin: 12/05/16 10:18 Dose: 2,000 iu Clonazepam (Klonopin) 4 mg PO HS [facility] PRN Reason: Protocol Last Admin: 12/05/16 23:14 Dose: 4 mg Furosemide (Lasix) 60 mg IVP Q8H [facility] Last Admin: 12/05/16 05:20 Dose: Not Given Home Med (Home Med) 1 unit PO DAILY [facility] Last Admin: 12/05/16 10:14 Dose: Not Given Meropenem 500 mg/ Sodium (Chloride) 100 mls @ 100 mls/hr IVPB Q12 [facility] PRN Reason: Protocol Stop: 12/10/16 16:40 Last Admin: 12/05/16 21:59 Dose: 100 mls/hr Levalbuterol HCl (Xopenex) 0.63 mg IH [id number] [facility] Last Admin: 12/05/16 20:18 Dose: 0.63 mg Lorazepam (Ativan) 0.5 mg PO BID [facility] PRN Reason: Protocol Last Admin: 12/05/16 18:21 Dose: Not Given Mupirocin (Bactroban Ointment) 0.5 gm TOP TID [facility] Last Admin: 12/05/16 18:21 Dose: Not Given Pantoprazole Sodium (Protonix Ec Tab) 40 mg PO 0630 [facility] Last Admin: 12/05/16 06:12 Dose: 40 mg Rivastigmine (Exelon Cap) 4.5 mg PO BID [facility] Last Admin: 12/05/16 18:21 Dose: 4.5 mg Ropinirole HCl (Requip) 8 mg PO HS [facility] Last Admin: 12/05/16 23:13 Dose: 8 mg - Labs Labs: 12/05/16 07:00 12/05/16 07:00 PT 11.2 Seconds (9.9-11.8) 11/28/16 22:20 INR 1.04 (0.93-1.08) 11/28/16 22:20 APTT 24.6 Seconds (23.7-30.8) 11/28/16 22:20 - Constitutional Appears: No Acute Distress Assessment and Plan (1) Acute renal failure Assessment & Plan: Being managed by HD, will continue for now; Status: Acute (2) Acute hypercapnic respiratory failure Assessment & Plan: Need to keep on BIPAP; Status: Acute (3) SIRS (systemic inflammatory response syndrome) Status: Acute (4) HTN (hypertension) Status: Acute (5) Hyperkalemia Assessment & Plan: Being managed by HD, continuing same for now; Status: Acute (6) Atrial fibrillation Status: Acute
[2016-12-06] MEDS: Levalbuterol 0.63 MG/3 ML Inhal Soln UD IH SCH ×4 (01:26→21:04)
[2016-12-06] MEDS: Pantoprazole 40 mg EC Tab PO SCH (05:56)
[2016-12-06 06:56] LABS: ADD MANUAL DIFF? NO
[2016-12-06 07:08] LABS: BASO # 0.01 K/mm3 (0.0-2.0); BASO % 0.1 % (0.0-3.0); EOS # 0.1 (0.0-0.7); EOS % 1.2 % (1.5-5.0); GRAN % 78.2 % (50.0-68.0); HEMATOCRIT 31.7 % (36.0-48.0); LYMPH # 1.4 (1.2-3.4); LYMPH % 13.3 % (22.0-35.0); MEAN CELL VOLUME 99.7 fL (80.0-105.0); MEAN CORPUSCULAR HEMOGLOBIN 31.4 pg (25.0-35.0); MEAN CORPUSCULAR HGB CONC 31.5 g/dl (31.0-37.0); MEAN PLATELET VOLUME 10.9 fl (7.0-11.0); MONO # 0.8 (0.1-0.6); MONO % 7.2 % (1.0-6.0); PLATELET COUNT 144 10^3/uL (120.0-450.0); RED CELL DISTRIBUTION WIDTH 20.9 % (11.5-14.5); WHITE BLOOD COUNT 10.4 10^3/ul (4.5-11.0)
[2016-12-06 07:23] LABS: ALB/GLOB RATIO 0.9 (1.1-1.8); BILIRUBIN,DIRECT 0.3 mg/dL (0.0-0.4); BILIRUBIN,TOTAL 0.5 mg/dL (0.2-1.3); CALCIUM 7.4 mg/dL (8.4-10.5); MAGNESIUM 1.9 mg/dL (1.7-2.2); PHOSPHOROUS 4.6 mg/dL (2.5-4.5); POTASSIUM 4.1 mmol/L (3.6-5.0); TOTAL PROTEIN 5.4 g/dL (5.8-8.3)
[2016-12-06] MEDS: Meropenem 500 MG in Sodium Chloride 0.9% 100 ML IVPB SCH (09:35)
[2016-12-06] MEDS: SELENIUM 200 MCG PO SCH (09:36)
--- NOTE | 2016-12-06 13:02 | PN ---
DATE: 12/06/2016 The patient is in bed in no acute distress, nontoxic. PHYSICAL EXAMINATION: VITAL SIGNS: Temperature is 98, blood pressure is 106/40, respiratory rate of 20. HEENT: Unremarkable. NECK: Supple. LUNGS: Have decreased breath sounds. HEART: Normal S1, S2. ABDOMEN: Soft, nontender. LABORATORY DATA: Reveals a white count of 10,000, hemoglobin of 10, platelets of 144. Chemistries r eveal the BUN of 32, creatinine of 2.0. The procalcitonin is 0.63. Urinalysis is noted and microbio logy is noted. The patient is on meropenem. ASSESSMENT AND PLAN: This is an 81-year-old female with acute respiratory failure due to fluid overl oad, congestive heart failure, acute on chronic renal failure, persistent leukocytosis, which has res olved, cardiac arrhythmia, atrial fibrillation status post pacemaker placement, left-sided pneumothor ax and with a history of rectovesical fistula status post loop colostomy, VRE in the urine, probably a colonizer currently and a patient with congestive heart failure and Parkinson's day #4. We will di scontinue the meropenem. No further antibiotics. Austen Bradford MD cc: 350 TT: 12/06/2016 13:01:29 Confirmation # [id number] Dictation # [id number] cn
--- NOTE | 2016-12-06 23:45 | CP.PCM.PN ---
Subjective - Date & Time of Evaluation Date of Evaluation: 12/06/16 Time of Evaluation: 16:30 - Subjective Subjective: Patient being seen during HD for acute renal failure; Denies any shortness of breath; no pain; Objective - Vital Signs/Intake and Output Vital Signs (last 24 hours): Temp Pulse Resp BP Pulse Ox 97.5 F L 72 20 133/57 L 100 12/06/16 17:30 12/06/16 17:30 12/06/16 17:30 12/06/16 17:30 12/06/16 17:30 Intake and Output: 12/06/16 12/07/16 18:59 06:59 Intake Total 460 240 Balance 460 240 - Medications Medications: Current Medications Aspirin (Aspirin Chewable) 81 mg PO DAILY [facility] Last Admin: 12/06/16 09:33 Dose: 81 mg Atenolol (Tenormin) 12.5 mg PO BID [facility] Last Admin: 12/06/16 17:48 Dose: 12.5 mg Calcium Acetate (Phoslo) 667 mg PO WM [facility] Last Admin: 12/06/16 17:48 Dose: 667 mg Cholecalciferol (Vitamin D) 2,000 iu PO DAILY [facility] Last Admin: 12/06/16 09:33 Dose: 2,000 iu Clonazepam (Klonopin) 4 mg PO HS [facility] PRN Reason: Protocol Last Admin: 12/06/16 21:13 Dose: 4 mg Furosemide (Lasix) 60 mg IVP Q8H [facility] Last Admin: 12/05/16 05:20 Dose: Not Given Home Med (Home Med) 1 unit PO DAILY [facility] Last Admin: 12/06/16 09:36 Dose: Not Given Levalbuterol HCl (Xopenex) 0.63 mg IH [id number] [facility] Last Admin: 12/06/16 21:04 Dose: 0.63 mg Lorazepam (Ativan) 0.5 mg PO BID [facility] PRN Reason: Protocol Last Admin: 12/06/16 17:45 Dose: Not Given Mupirocin (Bactroban Ointment) 0.5 gm TOP TID [facility] Last Admin: 12/06/16 17:45 Dose: Not Given Pantoprazole Sodium (Protonix Ec Tab) 40 mg PO 0630 [facility] Last Admin: 12/06/16 05:56 Dose: 40 mg Rivastigmine (Exelon Cap) 4.5 mg PO BID [facility] Last Admin: 12/06/16 17:48 Dose: 4.5 mg Ropinirole HCl (Requip) 8 mg PO HS [facility] Last Admin: 12/06/16 21:14 Dose: 8 mg - Labs Labs: 12/06/16 06:54 12/06/16 06:54 PT 11.2 Seconds (9.9-11.8) 11/28/16 22:20 INR 1.04 (0.93-1.08) 11/28/16 22:20 APTT 24.6 Seconds (23.7-30.8) 11/28/16 22:20 - Constitutional Appears: Well, No Acute Distress - Head Exam Head Exam: NORMAL INSPECTION - Eye Exam Eye Exam: Normal appearance. absent: Scleral icterus - ENT Exam ENT Exam: Mucous Membranes Moist - Neck Exam Neck Exam: Normal Inspection - Respiratory Exam Respiratory Exam: absent: Rales, Rhonchi, Wheezes Additional comments: Markedly decreased breath sounds bilaterally; - Cardiovascular Exam Cardiovascular Exam: REGULAR RHYTHM Additional comments: systolic murmur at apex - GI/Abdominal Exam GI & Abdominal Exam: Soft. absent: Distended, Tenderness - Exam Exam: absent: Bladder Distension - Extremities Exam Extremities Exam: Normal Capillary Refill Additional comments: markedly edematous legs - Neurological Exam Neurological Exam: Alert, Awake - Psychiatric Exam Psychiatric exam: absent: Anxious, Depressed - Skin Skin Exam: Normal Color, Warm. absent: Cyanosis Assessment and Plan (1) Acute renal failure Assessment & Plan: MARCIANO on CKD; ATN, made worse by superimposed cardiorenal etiology and need for volume removal via HD; oligo-anuric renal failure; progressive improvement in mental status with daily HD sessions; tolerated third and full HD session well yesterday; tolerating UF session well today with 2L UF goal being achieved without hypotension; Patient and family both were counseled on the need for HD and that patient likely wouldn't survive much more than a few days without it unless renal function improves; were also told that HD dependence may possibly be permanent ( as we perpetuate further ATN insults by volume removal on HD); -No HD/UF tomorrow, next for Thursday -If patient continues to remain stable and tolerate HD, will discuss outpatient HD options on Thursday Status: Acute (2) Acute hypercapnic respiratory failure Assessment & Plan: Persists despite L therapeutic thoracentesis; still with poor air movement on exam; continue with BIPAP intermittently and chest PT; Status: Acute (3) SIRS (systemic inflammatory response syndrome) Assessment & Plan: Leukocytosis improved, no positive blood cultures and Ucx thought to be colonization; monitor; if abx restarted, need to dose for HD; Status: Acute (4) HTN (hypertension) Assessment & Plan: Hemodynamically improved after 1 u prbc transfusion; continue atenolol 12.5 mg bid, avoid adding further agents for sporadic afib w/ RVR in order to avoid hypotension; Status: Acute (5) Hyperkalemia Assessment & Plan: Being managed with HD; monitor Status: Acute (6) Atrial fibrillation Assessment & Plan: Rate currently controlled; see above; Status: Acute
[2016-12-07] MEDS: Levalbuterol 0.63 MG/3 ML Inhal Soln UD IH SCH ×4 (02:44→21:50)
[2016-12-07] MEDS: Pantoprazole 40 mg EC Tab PO SCH (05:32)
[2016-12-07 07:36] LABS: ADD MANUAL DIFF? NO
[2016-12-07 07:58] LABS: EOS # 0.3 (0.0-0.7); EOS % 2.3 % (1.5-5.0); GRAN # 7.92 (1.4-6.5); HEMATOCRIT 33.5 % (36.0-48.0); LYMPH # 1.5 (1.2-3.4); LYMPH % 14.3 % (22.0-35.0); MEAN CELL VOLUME 100.3 fL (80.0-105.0); MEAN CORPUSCULAR HEMOGLOBIN 31.1 pg (25.0-35.0); MEAN PLATELET VOLUME 11.5 fl (7.0-11.0); MONO % 9.4 % (1.0-6.0); PLATELET COUNT 120 10^3/uL (120.0-450.0); RED CELL DISTRIBUTION WIDTH 20.1 % (11.5-14.5); WHITE BLOOD COUNT 10.7 10^3/ul (4.5-11.0)
--- NOTE | 2016-12-07 08:01 | CP.PCM.PN ---
Subjective - Date & Time of Evaluation Date of Evaluation: 12/07/16 Time of Evaluation: 07:40 - Subjective Subjective: (covering for Dr. Vargas) Patient is seen this morning in room 562 bed 1. She is awake, lying in bed. Objective - Vital Signs/Intake and Output Vital Signs (last 24 hours): Temp Pulse Resp BP Pulse Ox 97.5 F L 79 20 133/57 L 100 12/06/16 17:30 12/06/16 23:00 12/06/16 17:30 12/06/16 17:30 12/06/16 17:30 Intake and Output: 12/07/16 12/07/16 06:59 18:59 Intake Total 240 Output Total 50 Balance 190 - Medications Medications: Current Medications Aspirin (Aspirin Chewable) 81 mg PO DAILY [facility] Last Admin: 12/06/16 09:33 Dose: 81 mg Atenolol (Tenormin) 12.5 mg PO BID [facility] Last Admin: 12/06/16 17:48 Dose: 12.5 mg Calcium Acetate (Phoslo) 667 mg PO WM [facility] Last Admin: 12/06/16 17:48 Dose: 667 mg Cholecalciferol (Vitamin D) 2,000 iu PO DAILY [facility] Last Admin: 12/06/16 09:33 Dose: 2,000 iu Clonazepam (Klonopin) 4 mg PO HS [facility] PRN Reason: Protocol Last Admin: 12/06/16 21:13 Dose: 4 mg Furosemide (Lasix) 60 mg IVP Q8H [facility] Last Admin: 12/05/16 05:20 Dose: Not Given Home Med (Home Med) 1 unit PO DAILY [facility] Last Admin: 12/06/16 09:36 Dose: Not Given Levalbuterol HCl (Xopenex) 0.63 mg IH [id number] [facility] Last Admin: 12/07/16 02:44 Dose: 0.63 mg Lorazepam (Ativan) 0.5 mg PO BID [facility] PRN Reason: Protocol Last Admin: 12/06/16 17:45 Dose: Not Given Mupirocin (Bactroban Ointment) 0.5 gm TOP TID [facility] Last Admin: 12/06/16 17:45 Dose: Not Given Pantoprazole Sodium (Protonix Ec Tab) 40 mg PO 0630 [facility] Last Admin: 12/07/16 05:32 Dose: 40 mg Rivastigmine (Exelon Cap) 4.5 mg PO BID [facility] Last Admin: 12/06/16 17:48 Dose: 4.5 mg Ropinirole HCl (Requip) 8 mg PO HS [facility] Last Admin: 12/06/16 21:14 Dose: 8 mg - Labs Labs: 12/06/16 06:54 12/06/16 06:54 PT 11.2 Seconds (9.9-11.8) 11/28/16 22:20 INR 1.04 (0.93-1.08) 11/28/16 22:20 APTT 24.6 Seconds (23.7-30.8) 11/28/16 22:20 - Constitutional Appears: No Acute Distress - Respiratory Exam Respiratory Exam: Decreased Breath Sounds - Cardiovascular Exam Cardiovascular Exam: +S1, +S2 - Neurological Exam Neurological Exam: Awake Assessment and Plan - Assessment and Plan (Free Text) Assessment: Acute renal failure CKD IV Anemia Hypercapneic respiratory failure rectovaginal fistula s/p colostomy Plan: Patient is awake. Vital signs are stable. She is status post removal of fluid via dialysis. She will be out of bed to chair today. continue current medications Dr. Vargas will see the patient tomorrow
[2016-12-07 08:08] LABS: ALB/GLOB RATIO 0.9 (1.1-1.8); BILIRUBIN,DIRECT 0.5 mg/dL (0.0-0.4); BILIRUBIN,TOTAL 0.6 mg/dL (0.2-1.3); CALCIUM 7.9 mg/dL (8.4-10.5); MAGNESIUM 2.1 mg/dL (1.7-2.2); PHOSPHOROUS 5.2 mg/dL (2.5-4.5); POTASSIUM 4.4 mmol/L (3.6-5.0); TOTAL PROTEIN 5.8 g/dL (5.8-8.3)
[2016-12-07] MEDS: SELENIUM 200 MCG PO SCH (09:12)
--- NOTE | 2016-12-07 09:49 | PN ---
DATE: 12/07/2016 The patient is seen in room 562, bed 1. No fevers, no chills. PHYSICAL EXAMINATION: VITAL SIGNS: Temperature is 97. Blood pressure is 116/70, respiratory rate of 16. HEENT: Unremarkable. NECK: Supple. LUNGS: Have decreased breath sounds. HEART: Normal S1, S2. ABDOMEN: Soft, nontender. LABORATORY EXAMINATION: Reveals the patient's white count of 10.7, hemoglobin of 10, platelets of 12 0. Chemistries are noted. 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 The patient is at ris k for developing nosocomial infections. The patient appears much older than her stated age. ___ _ note from this morning is reviewed. Austen Bradford MD cc: [id number] TT: 12/07/2016 09:49:06 Confirmation # [id number] Dictation # [id number]
--- NOTE | 2016-12-07 15:41 | PN ---
DATE: 12/07/2016 An 81-year-old female with past medical history of hypertension, CHF with systolic dysfunction, CKD s tage II-IIIA, rectovesical/rectovaginal fistulas, now status post diverting colostomy. Admitted with lethargy, found to have acute hypercapnic respiratory failure and persistent acute renal failure. N ephrology consulted for the same. The patient denies any shortness of breath or pain. Per family, she is more lethargic this afternoon , although did tolerate diet earlier today. PHYSICAL EXAMINATION: VITAL SIGNS: This morning, blood pressure 116/57, heart rate 69, respirations 20, temperature 97.9, O2 sat 97%. GENERAL: No distress, lethargic, able to respond to verbal stimuli. HEENT: Moist mucous membranes. Nonicteric. CHEST: Markedly decreased breath sounds on left. Clear on right. CARDIOVASCULAR: S1, S2 normal. Regular rate and rhythm. GASTROINTESTINAL: Abdomen soft, nontender, nondistended. Stool in ostomy bag. GENITOURINARY: Bladder nondistended. EXTREMITIES: Moderately edematous proximal legs. PSYCHIATRIC: Lethargic, otherwise normal mood. LABORATORIES: This morning, WBC 10.7, hemoglobin 10.4, hematocrit 33.5, platelets 120. Chemistry pa darryl: Sodium 138, potassium 4.4, chloride 106, bicarbonate 24, BUN 44, creatinine 2.8, glucose 76, ca lcium 7.9, phosphorus 5.2, albumin 2.7. ASSESSMENT: 1. Acute renal failure, acute kidney injury on chronic kidney disease, secondary to acute tubular ne crosis with superimposed cardiorenal etiology, restarted on hemodialysis, anuric renal failure. The patient tolerating hemodialysis and ultrafiltration well. Next session scheduled for tomorrow. Will have patient on 3 times a week hemodialysis with likely an additional ultrafiltration session. 2. Hyperkalemia, being managed with hemodialysis, currently resolved. 3. Acute decompensated systolic congestive heart failure, severe exacerbation with patient markedly volume overloaded. Hemodynamically much improved after initiating hemodialysis. Edema also improvin g. Mitral regurgitation likely contributing to congestive heart failure status. Goal is to keep pat ient euvolemic with ultrafiltration on hemodialysis. Continue as mentioned above. 4. Systemic inflammatory response syndrome, leukocytosis, appears resolved. Currently off all antib iotics. Continue to monitor. If antibiotics needed, need to redose for hemodialysis. 5. Hypercapnic respiratory failure. Repeat blood gas still showing persistent hypercapnia. The pat ient with very poor air movement despite thoracentesis. Getting BiPAP at night. Recommend BiPAP on intermittently during the day as well. 6. Atrial fibrillation, currently rate controlled on atenolol 12.5 mg b.i.d. Recommend to continue the same and avoid adding further agents as this will cause more hypotension and delay any possible r enal recovery. Atrial fibrillation status likely benefitted by volume removal on hemodialysis. Will continue to keep euvolemic. Wally Ash MD cc: [id number] TT: 12/07/2016 15:40:45 Confirmation # [id number] Dictation # [id number]
[2016-12-08] MEDS: Levalbuterol 0.63 MG/3 ML Inhal Soln UD IH SCH ×4 (03:15→20:37)
[2016-12-08] MEDS: Pantoprazole 40 mg EC Tab PO SCH (05:57)
[2016-12-08 06:36] LABS: ADD MANUAL DIFF? NO
[2016-12-08 06:44] LABS: BASO # 0.01 K/mm3 (0.0-2.0); BASO % 0.1 % (0.0-3.0); EOS # 0.3 (0.0-0.7); EOS % 2.4 % (1.5-5.0); GRAN # 7.59 (1.4-6.5); HEMATOCRIT 34.1 % (36.0-48.0); LYMPH # 1.6 (1.2-3.4); LYMPH % 15.4 % (22.0-35.0); MEAN CELL VOLUME 100.6 fL (80.0-105.0); MEAN CORPUSCULAR HGB CONC 30.8 g/dl (31.0-37.0); MEAN PLATELET VOLUME 11.5 fl (7.0-11.0); MONO # 0.8 (0.1-0.6); MONO % 8.1 % (1.0-6.0); PLATELET COUNT 137 10^3/uL (120.0-450.0); RED CELL DISTRIBUTION WIDTH 19.1 % (11.5-14.5); WHITE BLOOD COUNT 10.3 10^3/ul (4.5-11.0)
[2016-12-08 07:10] LABS: ALB/GLOB RATIO 0.8 (1.1-1.8); BILIRUBIN,DIRECT 0.5 mg/dL (0.0-0.4); BILIRUBIN,TOTAL 0.6 mg/dL (0.2-1.3); MAGNESIUM 2.1 mg/dL (1.7-2.2); PHOSPHOROUS 5.7 mg/dL (2.5-4.5); POTASSIUM 4.4 mmol/L (3.6-5.0); TOTAL PROTEIN 5.8 g/dL (5.8-8.3)
--- NOTE | 2016-12-08 08:32 | PN ---
DATE: 12/06/2016 The patient is seen lying in the bed in room 562, bed 1. The patient's is at the bedside. The patient is much more awake. The patient is presently not on any oxygen supplementation. The patient appears to be comfortable. Overnight nurses' notes were reviewed. The patient has not been making much urine output. PHYSICAL EXAMINATION: VITAL SIGNS: As per the vital sign sheets: The patient has been afebrile, heart rate 60s and 70s, blood pressure 120s, 110, 130s systolic, and diastolic blood pressure in the 70s and 80s. Respirations 20, O2 sat in the mid to high 90s. Room air and oxygen supplementation. Intake output unable to be assessed. HEENT: Head normocephalic, atraumatic. Shows positive Band-Aid on the nasal bridge. Pinkish pale conjunctivae, anicteric sclerae. No oropharyngeal lesion. NECK: Soft carotid bruit. Positive right neck dialysis catheter. CHEST: Kyphosis, positive left upper chest pacemaker. LUNGS: Shows occasional rhonchi in the upper lung walls anteriorly. CARDIOVASCULAR: S1, S2. Regular rhythm. Positive systolic murmur right second intercostal space, left sternal border, left second intercostal space. ABDOMEN: Soft. Positive bowel sounds. Positive colostomy. GENITALIA: Female. Positive Ramirez catheter. EXTREMITIES: Shows decreasing pitting edema of the lower extremity. Persistent swelling of the upper extremity. Positive right upper extremity PICC line noted. Positive ADRIANO stockings and SCDs noted. MUSCULOSKELETAL: Shows a body mass index as above. NEUROLOGIC: The patient is alert, awake, responsive, is able to move upper and lower extremities without assistance. Cranial nerves II-XII were limited. GAIT: Examination could not be tested as the patient is lying in the bed. VASCULAR: Palpable pulses. DIAGNOSTICS: From today reviewed. WBC count is normal, hemoglobin has gone up to 10, platelets are normal. The patient's potassium is mid to high 4.0's and 4.5. Sodium is within normal limits. BUN and creatinine has slightly improved with a creatinine of around low 2.3's and 2.4. Chest x-ray from yesterday was reviewed for follow up on the left upper lobe density and pneumonia. Chest x-ray from yesterday: There was pneumonia noted, decreasing bilateral pleural effusion and cardiomegaly. IMPRESSION AND PLAN: 1. Acute renal failure and acute kidney injury. 2. Acute tubular necrosis. 3. Cardiorenal syndrome. 4. Volume overload with anasarca. 5. Bilateral upper and lower extremity pitting edema and stranding (resolving) 6. Vancomycin-resistant Enterococcus faecium urinary tract infection and funguria. 7. Acute blood loss anemia, etiology undetermined. 8. Status post packed red blood cell transfusion. 9. Acute hypercapnic, hypercarbic respiratory failure. 10. Severe deconditioning and gait dysfunction with bedridden status and possible functional quadriplegia. 11. History of dementia, history of Parkinson disease, history of anxiety, depression. 12. Kyphosis of the spine. 13. Bilateral pleural effusion, left more than the right. 14. Status post ultrasound guided left thoracentesis with removal of 700 mL of pleural fluid with decreasing bilateral pleural effusion. 15. Cardiomegaly. 16. Atrial fibrillation with rapid ventricular response and slow ventricular response with long pauses and periods of asystole. 17. Status post permanent pacemaker implant. 18. Left apical pneumothorax, post pacemaker implant. 19. Poor intravenous access. 20. Status post right upper extremity peripherally inserted central catheter line. 21. History of colovesical, colovaginal fistula. 22. Status post loop colostomy. 22. Cardiorenal syndrome. 1. Hypotension with periods and episodic transient hypertension. 2. Hypoxemia. 3. Leukocytosis with granulocytosis. 4. Decreasing hemoglobin and hematocrit with normocytic anemia. 5. Granulocytosis. 6. Acute hypercapneic, hypercarbic respiratory failure. 7. Metabolic acidosis and non-hemolyzed hyperkalemia. 8. Acute renal failure, acute kidney injury and acute tubular necrosis. 9. Cardiorenal syndrome. 10. Transaminitis. 11. Hypoalbuminemia. 12. Hyperprocalcitonemia. 13. Vancomycin-resistant Enterococcus faecium urinary tract infection and funguria and proteinuria, hematuria, pyuria, bacteriuria and funguria. 14. Status post right upper extremity peripherally inserted central catheter line placement. 15. Right internal jugular dialysis catheter placement. 16. Status post ultrasound-guided left thoracentesis, removal of 700 mL of fluid. 17. Acute renal failure, acute kidney injury and chronic kidney disease stage IV. 18. Acute tubular necrosis. 19. Cardiorenal syndrome. 20. Status post hemodialysis. 21. Status post hemodialysis and ultrafiltration. 22. Volume overload and third spacing. 23. Atrial fibrillation with rapid ventricular response and slow ventricular response with long pauses and asystole. 24. Persistent leukocytosis. 25. Status post left upper chest permanent pacemaker implant. 26. Post-pacemaker implant left apical pneumothorax. 27. History of rectovesical, rectovaginal fistula, status post loop colostomy. 28. Questionable left upper lobe healthcare-associated pneumonia. 29. Bilateral pleural effusion. 30. Hypoxemia. 31. History of anxiety, depression, dementia, Parkinson disease. 32. Hyperphosphatemia. 33. Hypovitaminosis D. 1. Acute renal failure, acute kidney injury with nonhemolyzed hyperkalemia and acute tubular necrosis. 2. Status post hemodialysis. 3. Status post right internal jugular [place] and dialysis catheter placement. 4. Status post ultrasound guided left thoracentesis with removal of 700 mL of pleural fluid. 5. Hypertension. 6. Hypoxemia. 7. Acute hypercarbic hypercapnic BiPAP-requiring respiratory failure. 8. Left upper lobe healthcare-associated pneumonia. 9. Bilateral pleural effusion with improvement. 10. Cardiomegaly. 11. Status post left-sided permanent pacemaker implant. 12. Severe deconditioning. 13. Vancomycin-resistant Enterococcus faecium urinary tract infection and funguria. 14. Leukocytosis with granulocytosis. 15. Non-hemolyzed hyperkalemia. 16. Hyperphosphatemia. 17. Transaminitis. 18. Hyperprocalcitoninemia. 19. Vancomycin-resistant Enterococcus faecium urinary tract infection and funguria with proteinuria, hematuria, pyuria, and bacteriuria. 20. Severe deconditioning, gait dysfunction and bedridden status. 21. Possible functional quadriplegia. 22. Encephalopathy. 23. New left upper lobe healthcare-associated pneumonia. 24. Fluid and volume overload. 25. Atrial fibrillation with rapid ventricular response and slow ventricular response with long pauses and periods of asystole. 26. Status post left upper chest permanent pacemaker implant. 27. Oliguric/anuric renal failure with acute tubular necrosis with cardiorenal syndrome. 28. Episodic hypotension. 29. Systemic inflammatory response syndrome with hyperprocalcitoninemia. 30. Non-hemolyzed hyperkalemia. 31. Bilateral lower extremity venous stasis. 32. History of anxiety, depression, dementia, Parkinson's disease. 33. Hyperphosphatemia. 34. Hypovitaminosis D. 1. Worsening acute renal failure with recurrent refractory non-hemolyzed hyperkalemia. 2. Persistent refractory leukocytosis with granulocytosis. 3. Normocytic anemia. 4. Metabolic acidosis with hypercarbia and acute hypercarbic hypercapnic respiratory failure. 5. Underlying chronic kidney disease stage IV. 6. Hyperphosphatemia. 7. Transaminitis. 8. Hypoalbuminemia. 9. Vancomycin-resistant Enterococcus faecium and yeast species questionable urinary tract infection with proteinuria, hematuria, pyuria, bacteriuria, funguria. 10. Status post ultrasound-guided left thoracentesis with drainage of 700 mL of pleural fluid. 11. Left upper lobe patchy new infiltrate. 12. Decreasing bilateral pleural effusion with cardiomegaly. 13. Status post permanent pacemaker implant. 14. Post-pacemaker left apical pneumothorax. 15. Hypercarbic respiratory failure. 16. Status post loop colostomy with removal of the ostomy bridge. 17. Transient hypotension. 18. Acute renal failure, acute kidney injury with underlying chronic kidney disease with acute tubular necrosis with granular casts in the urine. 19. Possible cardiorenal syndrome. 20. Non-gap metabolic acidosis. 21. History of atrial fibrillation with rapid ventricular response and slow ventricular response with periods of asystole and long pauses. 22. Acute hypercapnic respiratory failure secondary to volume overload. 23. Status post left apical pneumothorax. 24. History of rectovesical, rectovaginal fistula. 25. Parkinson's disease. 26. History of dementia, history of atrial fibrillation, history of systolic congestive heart failure. 1. Acute renal failure with worsening and decreasing urine output. 2. Volume overload with anasarca and bilateral pleural effusions. 3. Lethargy. 4. Transient hypotension. 5. History of hypertension. 6. Leukocytosis with granulocytosis. 7. Macrocytic anemia. 8. Hypercarbic and hypercapnic respiratory failure. 9. Non-hemolyzed hyperkalemia. 10. Acute renal failure, acute kidney injury with underlying chronic kidney disease stage IV/V. 11. Hyperphosphatemia. 12. Elevated alkaline phosphatase. 13. Hypoalbuminemia. 14. Vancomycin-resistant Enterococcus faecium urinary tract infection and funguria and gram-positive cocci urinary tract infection. 15. Severe gait dysfunction and bedridden status and severe deconditioning. 16. Functional quadriplegia. 17. Bilateral pleural effusion with bibasilar atelectasis and cardiomegaly. 18. Possible hepatic cirrhosis with perihepatic, perisplenic ascites and extensive anasarca with third spacing and volume overload. 19. Status post colostomy. 20. Bibasilar atelectasis. 21. Status post right upper extremity peripherally inserted central catheter line placement. 22. History of dementia. 23. Left ventricular ejection fraction of 40% with moderately impaired left ventricular systolic function and septal hypokinesis. 24. Moderate to severely sclerotic aortic valve with moderate aortic regurgitation. 25. Severe mitral regurgitation with moderately thickened mitral valve. 26. Moderate pulmonary arterial hypertension. 27. Bilateral pleural effusion, left more than the right. 28. Status post permanent pacemaker. 29. Severe deconditioning. 30. Acute tubular necrosis. 31. History of dementia. 32. History of paroxysmal atrial fibrillation with rapid ventricular response and slow ventricular response with long pauses and periods of asystole. 33. History of dementia, Parkinson disease, anxiety, depression. 34. Status post permanent pacemaker implant. 35. Post permanent pacemaker left apical pneumothorax. 36. Hypothermia. 37. Systemic inflammatory response syndrome. 38. Deconditioning. 39. History of anxiety disorder. 40. Non-hemolyzed hyperkalemia. 41. Hyperphosphatemia. 42. Hypovitaminosis D. 1. Recurrent acute renal failure. 2. Recurrent non-hemolyzed hyperkalemia. 3. Status post right upper extremity peripherally-inserted central catheter line placement for poor intravenous access. 4. Vancomycin-resistant enterococcus urinary tract infection and funguria. 5. Systemic inflammatory response syndrome. 6. Acute renal failure with underlying chronic kidney disease stage III/IV. 7. Acute tubular necrosis. 8. Non-hemolyzed hyperkalemia. 9. Third spacing with volume and fluid overload with bilateral pleural effusion and anasarca. 10. Hypercapnic respiratory failure. 11. Leukocytosis with granulocytosis. 12. Normocytic anemia. 13. Non-hemolyzed hyperkalemia. 14. Hyperphosphatemia. 15. Hypoalbuminemia. 16. Funguria. 17. Vancomycin-resistant Enterococcus faecalis faecium, enterococcus faecium urinary tract infection and funguria with proteinuria, hematuria, pyuria, bacteriuria, and funguria. 18. Bilateral pleural effusion with bibasilar atelectasis and cardiomegaly. 19. Questionable and possible cirrhosis with perihepatic and perisplenic ascites with anasarca and third spacing. 20. Right-sided colostomy. 21. Severe deconditioning, gait dysfunction, bedridden status, and functional quadriplegia. 22. Cerebral cortical atrophy of the brain. 23. Microvascular ischemic disease of the brain. 24. Chronic lacunar infarcts and encephalomalacia. 25. Left ventricular ejection fraction of 40% with moderately impaired left ventricular systolic function and septal hypokinesis. 26. Moderate to severely sclerotic aortic valve and moderate aortic regurgitation. 27. Severe mitral regurgitation with moderately thickened mitral valve. 28. Moderate pulmonary hypertension. 29. Large left pleural effusion. 30. 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 31. Post permanent pacemaker implant, left apical pneumothorax. 1. Acute renal failure with worsening underlying chronic kidney disease. 2. Non-hemolyzed hyperkalemia. 3. Hyperphosphatemia. 4. Hypocalcemia. 5. Transaminitis. 6. Elevated lipase, etiology undetermined. 7. Leukocytosis with granulocytosis and normocytic anemia. 8. Macrocytic anemia. 9. Gram-positive cocci urinary tract infection with proteinuria, microscopic hematuria, pyuria, funguria. 10. Gram-positive cocci urinary tract infection. 11. Bilateral pleural effusion with bibasilar compressive atelectasis. 12. Cardiomegaly. 13. Questionable cirrhosis with irregularities of the hepatic margin and perihepatic and perisplenic ascites and extensive anasarca with third spacing. 14. Right-sided colostomy. 15. Severe gait dysfunction and deconditioning and bedridden status. 16. Possible functional quadriplegia. 17. Left ventricular ejection fraction of 40% with concentric left ventricular hypertrophy. 18. Moderately impaired left ventricular systolic function with left ventricular ejection fraction of 40%. 19. Moderately impaired left ventricular systolic function. 20. Moderate to severe aortic valve sclerosis and moderate aortic regurgitation. 21. Severe mitral regurgitation with moderately thickened mitral valve. 22. Moderate pulmonary arterial hypertension. 23. Septal hypokinesis. 24. Moderate aortic regurgitation. 25. Large pleural effusion. 26. Bilateral upper extremity swelling. 27. Poor intravenous access. 28. Cerebral cortical atrophy of the brain with small vessel ischemic disease of the brain and chronic lacunar infarcts and encephalomalacia. 29. Moderately impaired left ventricular systolic function with elevated BNP and systolic congestive heart failure with elevated BNP of 26,000. 30. Macrocytic anemia. 31. Status post non-hemolyzed hyperkalemia. 32. Gram-positive cocci urinary tract infection. 33. History of dementia, Parkinson disease, history of paroxysmal atrial fibrillation with multiple pauses and periods of asystole. 34. Status post permanent pacemaker implant and status post permanent pacemaker implant, left apical pneumothorax. 35. Systemic inflammatory response syndrome. 36. Volume overload with third spacing. 37. Severely debilitated, deconditioning. 38. hyperkalemia. 39. Systemic inflammatory response syndrome. 40. Status post colostomy. 41. History of rectovaginal, rectovesical fistula. 42. History of anxiety disorder, history of dementia, history of Parkinson disease and hypovitaminosis D. 1. Questionable and possible sepsis versus systemic inflammatory response syndrome with hypothermia. 2. Hypotension. 3. Questionable and possible septic shock. 4. Non-hemolyzed hyperkalemia. 5. Acute renal failure with underlying chronic kidney disease. 6. Possible urinary tract infection with pyuria, bacteriuria, proteinuria, hematuria and funguria. 7. Transaminitis. 8. Malnutrition. 9. History of colovesical, colovaginal fistula. 10. History of recurrent sepsis and recurrent urinary tract infection. 11. History of Parkinson's disease, dementia, history of severe gait dysfunction, history of sick sinus syndrome with tachybrady syndrome, history of atrial fibrillation with rapid ventricular response and slow ventricular response with long pauses and periods of asystole. 12. Status post pacemaker implant. 13. History of severe gait dysfunction. 14. Severe deconditioning. 15. Severe gait dysfunction with possible functional quadriplegia. 16. Hypotension. 17. Hyperkalemia. 18. Severe gait dysfunction. 19. Poor intravenous access. 20. Small vessel ischemic disease of the brain. 21. Cerebral cortical atrophy of the brain. 22. Poor intravenous access. PLAN: At this time, the patient is to be continued to be followed by nephrology and infectious disease and interventional radiology. The patient's has been updated about the new diagnostic test results and recommendations, which has been explained to the patient and the patient's in layman's language. All questions and concerns answered. At this time, the patient is to be continued on above therapeutic intervention. We will await infectious disease recommendation about continuation of the IV antibiotic duration. I have advised to the patient's to contact and stay in touch with the school social worker and work closely with the secondary social studies teacher case management department for discharge planning and disposition of the patient 's whether to subacute rehab versus long-term placement versus home with 24- hour care. I have explained to the patient's and the patient about overall guarded to poor prognosis, which they acknowledged and understand. At present, the patient's code status is DNR/DNI. Dictated and electronically signed, not read. Rigo Vargas MD cc: [id number] TT: 12/06/2016 19:48:29 Confirmation # [id number] Dictation # [id number] satya [id number]
[2016-12-08] MEDS: SELENIUM 200 MCG PO SCH (10:22)
--- NOTE | 2016-12-08 12:19 | PN ---
DATE: 12/08/2016 SUBJECTIVE: The patient is seen in room 562, bed 1. The patient is getting cleaned by the PCP. The patient's is outside in the hallway. The patient is lying in the bed, alert, awake, responsive, does not appear to be in any distress. The patient answers and responds to verbal stimuli. Overnight nurse's notes were reviewed. The patient slept intermittently throughout the shift. The patient needed BiPAP. The patient was put out of bed to chair yesterday. The patient was intermittently lethargic during the day yesterday without any distress noted. PHYSICAL EXAMINATION: VITAL SIGNS: T-max is 97.9, pulse 65; blood pressure 110/50, 111/48, 116/56; respiration 18-20, O2 sat is 98-100% on nasal cannula, facemask and room air. INTAKE AND OUTPUT: The patient's urine output is 50 mL documented. HEAD: Normocephalic, atraumatic. HEENT: Shows pinkish, pale conjunctivae; anicteric sclerae. No oropharyngeal lesion. No neck rigidity. Positive right internal jugular dialysis catheter. Positive left upper chest pacemaker. Positive kyphosis. Soft carotid bruit. LUNGS: Questionable decreased breath sounds at the bases. CARDIOVASCULAR: Shows S1, S2, regular rhythm. Positive systolic murmur right second intercostal space, left sternal border, left second intercostal space. ABDOMEN: Soft, slightly protuberant, positive colostomy. GENITALIA: Female. Positive Ramirez catheter. EXTREMITIES: Shows decreasing swelling and edema of the upper and lower extremity. Positive right upper extremity PICC line. MUSCULOSKELETAL: Shows a body mass index of 30.7. NEUROLOGIC: The patient is alert, awake, responsive, follows commands, responds to verbal stimuli. Cranial nerves II-XII limited. GAIT: Could not be tested. The patient is lying in the bed. PSYCHIATRIC: Positive for history of dementia, Parkinson's disease, anxiety, depression. DIAGNOSTICS: 12/08/2016: WBC 10.3, hemoglobin and hematocrit are 10.5 and 34.1 , platelets 137, granulocytes 74%. Sodium 137, potassium 4.4, chloride 106, CO2 of 24, anion gap 11, BUN 55, creatinine 3.5, GFR 15, glucose 76, calcium 8.0 , phosphorus 5.7. Alkaline phosphatase 174, albumin 2.6. The patient received 1 unit of PRBC which was given on 12/05/2016. The patient's last chest x-ray was reviewed with decreasing bilateral pleural effusions and cardiomegaly. IMPRESSION AND PLAN: 1. Questionable and possible end-stage renal disease, hemodialysis dependent. 2. Acute renal failure with underlying chronic kidney disease, stage III. 3. Acute kidney injury. 4. Acute tubular necrosis. 5. Cardiorenal syndrome. 6. Episodic hypotension. 7. Anuric renal failure. 8. Non-hemolyzed hyperkalemia. 9. Mitral regurgitation. 10. Hypercapnic respiratory failure with hypercarbia and hypercapnia. 11. Atrial fibrillation with rapid and slow ventricular response with long pauses and periods of ____ asystole. 12. Status post permanent pacemaker implant. 13. Post permanent pacemaker left apical pneumothorax. 14. Status post left-sided chest tube placement for pneumothorax. 15. Status post loop colostomy. 16. Vancomycin-resistant enterococcus colonization. 17. Severe deconditioning and gait dysfunction, bedridden status and functional quadriplegia. 18. Episodic hypotension. 19. Episodic hypoxemia. 20. Normocytic anemia, status post packed red blood cell transfusion. 21. Granulocytosis. 22. Status post non-hemolyzed hyperkalemia. 23. Hypoalbuminemia. 24. Severe deconditioning. 1. Acute renal failure and acute kidney injury. 2. Acute tubular necrosis. 3. Cardiorenal syndrome. 4. Volume overload with anasarca. 5. Bilateral upper and lower extremity pitting edema and stranding (resolving) 6. Vancomycin-resistant Enterococcus faecium urinary tract infection and funguria. 7. Acute blood loss anemia, etiology undetermined. 8. Status post packed red blood cell transfusion. 9. Acute hypercapnic, hypercarbic respiratory failure. 10. Severe deconditioning and gait dysfunction with bedridden status and possible functional quadriplegia. 11. History of dementia, history of Parkinson disease, history of anxiety, depression. 12. Kyphosis of the spine. 13. Bilateral pleural effusion, left more than the right. 14. Status post ultrasound guided left thoracentesis with removal of 700 mL of pleural fluid with decreasing bilateral pleural effusion. 15. Cardiomegaly. 16. Atrial fibrillation with rapid ventricular response and slow ventricular response with long pauses and periods of asystole. 17. Status post permanent pacemaker implant. 18. Left apical pneumothorax, post pacemaker implant. 19. Poor intravenous access. 20. Status post right upper extremity peripherally inserted central catheter line. 21. History of colovesical, colovaginal fistula. 22. Status post loop colostomy. 22. Cardiorenal syndrome. 1. Hypotension with periods and episodic transient hypertension. 2. Hypoxemia. 3. Leukocytosis with granulocytosis. 4. Decreasing hemoglobin and hematocrit with normocytic anemia. 5. Granulocytosis. 6. Acute hypercapneic, hypercarbic respiratory failure. 7. Metabolic acidosis and non-hemolyzed hyperkalemia. 8. Acute renal failure, acute kidney injury and acute tubular necrosis. 9. Cardiorenal syndrome. 10. Transaminitis. 11. Hypoalbuminemia. 12. Hyperprocalcitonemia. 13. Vancomycin-resistant Enterococcus faecium urinary tract infection and funguria and proteinuria, hematuria, pyuria, bacteriuria and funguria. 14. Status post right upper extremity peripherally inserted central catheter line placement. 15. Right internal jugular dialysis catheter placement. 16. Status post ultrasound-guided left thoracentesis, removal of 700 mL of fluid. 17. Acute renal failure, acute kidney injury and chronic kidney disease stage IV. 18. Acute tubular necrosis. 19. Cardiorenal syndrome. 20. Status post hemodialysis. 21. Status post hemodialysis and ultrafiltration. 22. Volume overload and third spacing. 23. Atrial fibrillation with rapid ventricular response and slow ventricular response with long pauses and asystole. 24. Persistent leukocytosis. 25. Status post left upper chest permanent pacemaker implant. 26. Post-pacemaker implant left apical pneumothorax. 27. History of rectovesical, rectovaginal fistula, status post loop colostomy. 28. Questionable left upper lobe healthcare-associated pneumonia. 29. Bilateral pleural effusion. 30. Hypoxemia. 31. History of anxiety, depression, dementia, Parkinson disease. 32. Hyperphosphatemia. 33. Hypovitaminosis D. 1. Acute renal failure, acute kidney injury with nonhemolyzed hyperkalemia and acute tubular necrosis. 2. Status post hemodialysis. 3. Status post right internal jugular [place] and dialysis catheter placement. 4. Status post ultrasound guided left thoracentesis with removal of 700 mL of pleural fluid. 5. Hypertension. 6. Hypoxemia. 7. Acute hypercarbic hypercapnic BiPAP-requiring respiratory failure. 8. Left upper lobe healthcare-associated pneumonia. 9. Bilateral pleural effusion with improvement. 10. Cardiomegaly. 11. Status post left-sided permanent pacemaker implant. 12. Severe deconditioning. 13. Vancomycin-resistant Enterococcus faecium urinary tract infection and funguria. 14. Leukocytosis with granulocytosis. 15. Non-hemolyzed hyperkalemia. 16. Hyperphosphatemia. 17. Transaminitis. 18. Hyperprocalcitoninemia. 19. Vancomycin-resistant Enterococcus faecium urinary tract infection and funguria with proteinuria, hematuria, pyuria, and bacteriuria. 20. Severe deconditioning, gait dysfunction and bedridden status. 21. Possible functional quadriplegia. 22. Encephalopathy. 23. New left upper lobe healthcare-associated pneumonia. 24. Fluid and volume overload. 25. Atrial fibrillation with rapid ventricular response and slow ventricular response with long pauses and periods of asystole. 26. Status post left upper chest permanent pacemaker implant. 27. Oliguric/anuric renal failure with acute tubular necrosis with cardiorenal syndrome. 28. Episodic hypotension. 29. Systemic inflammatory response syndrome with hyperprocalcitoninemia. 30. Non-hemolyzed hyperkalemia. 31. Bilateral lower extremity venous stasis. 32. History of anxiety, depression, dementia, Parkinson's disease. 33. Hyperphosphatemia. 34. Hypovitaminosis D. 1. Worsening acute renal failure with recurrent refractory non-hemolyzed hyperkalemia. 2. Persistent refractory leukocytosis with granulocytosis. 3. Normocytic anemia. 4. Metabolic acidosis with hypercarbia and acute hypercarbic hypercapnic respiratory failure. 5. Underlying chronic kidney disease stage IV. 6. Hyperphosphatemia. 7. Transaminitis. 8. Hypoalbuminemia. 9. Vancomycin-resistant Enterococcus faecium and yeast species questionable urinary tract infection with proteinuria, hematuria, pyuria, bacteriuria, funguria. 10. Status post ultrasound-guided left thoracentesis with drainage of 700 mL of pleural fluid. 11. Left upper lobe patchy new infiltrate. 12. Decreasing bilateral pleural effusion with cardiomegaly. 13. Status post permanent pacemaker implant. 14. Post-pacemaker left apical pneumothorax. 15. Hypercarbic respiratory failure. 16. Status post loop colostomy with removal of the ostomy bridge. 17. Transient hypotension. 18. Acute renal failure, acute kidney injury with underlying chronic kidney disease with acute tubular necrosis with granular casts in the urine. 19. Possible cardiorenal syndrome. 20. Non-gap metabolic acidosis. 21. History of atrial fibrillation with rapid ventricular response and slow ventricular response with periods of asystole and long pauses. 22. Acute hypercapnic respiratory failure secondary to volume overload. 23. Status post left apical pneumothorax. 24. History of rectovesical, rectovaginal fistula. 25. Parkinson's disease. 26. History of dementia, history of atrial fibrillation, history of systolic congestive heart failure. 1. Acute renal failure with worsening and decreasing urine output. 2. Volume overload with anasarca and bilateral pleural effusions. 3. Lethargy. 4. Transient hypotension. 5. History of hypertension. 6. Leukocytosis with granulocytosis. 7. Macrocytic anemia. 8. Hypercarbic and hypercapnic respiratory failure. 9. Non-hemolyzed hyperkalemia. 10. Acute renal failure, acute kidney injury with underlying chronic kidney disease stage IV/V. 11. Hyperphosphatemia. 12. Elevated alkaline phosphatase. 13. Hypoalbuminemia. 14. Vancomycin-resistant Enterococcus faecium urinary tract infection and funguria and gram-positive cocci urinary tract infection. 15. Severe gait dysfunction and bedridden status and severe deconditioning. 16. Functional quadriplegia. 17. Bilateral pleural effusion with bibasilar atelectasis and cardiomegaly. 18. Possible hepatic cirrhosis with perihepatic, perisplenic ascites and extensive anasarca with third spacing and volume overload. 19. Status post colostomy. 20. Bibasilar atelectasis. 21. Status post right upper extremity peripherally inserted central catheter line placement. 22. History of dementia. 23. Left ventricular ejection fraction of 40% with moderately impaired left ventricular systolic function and septal hypokinesis. 24. Moderate to severely sclerotic aortic valve with moderate aortic regurgitation. 25. Severe mitral regurgitation with moderately thickened mitral valve. 26. Moderate pulmonary arterial hypertension. 27. Bilateral pleural effusion, left more than the right. 28. Status post permanent pacemaker. 29. Severe deconditioning. 30. Acute tubular necrosis. 31. History of dementia. 32. History of paroxysmal atrial fibrillation with rapid ventricular response and slow ventricular response with long pauses and periods of asystole. 33. History of dementia, Parkinson disease, anxiety, depression. 34. Status post permanent pacemaker implant. 35. Post permanent pacemaker left apical pneumothorax. 36. Hypothermia. 37. Systemic inflammatory response syndrome. 38. Deconditioning. 39. History of anxiety disorder. 40. Non-hemolyzed hyperkalemia. 41. Hyperphosphatemia. 42. Hypovitaminosis D. 1. Recurrent acute renal failure. 2. Recurrent non-hemolyzed hyperkalemia. 3. Status post right upper extremity peripherally-inserted central catheter line placement for poor intravenous access. 4. Vancomycin-resistant enterococcus urinary tract infection and funguria. 5. Systemic inflammatory response syndrome. 6. Acute renal failure with underlying chronic kidney disease stage III/IV. 7. Acute tubular necrosis. 8. Non-hemolyzed hyperkalemia. 9. Third spacing with volume and fluid overload with bilateral pleural effusion and anasarca. 10. Hypercapnic respiratory failure. 11. Leukocytosis with granulocytosis. 12. Normocytic anemia. 13. Non-hemolyzed hyperkalemia. 14. Hyperphosphatemia. 15. Hypoalbuminemia. 16. Funguria. 17. Vancomycin-resistant Enterococcus faecalis faecium, enterococcus faecium urinary tract infection and funguria with proteinuria, hematuria, pyuria, bacteriuria, and funguria. 18. Bilateral pleural effusion with bibasilar atelectasis and cardiomegaly. 19. Questionable and possible cirrhosis with perihepatic and perisplenic ascites with anasarca and third spacing. 20. Right-sided colostomy. 21. Severe deconditioning, gait dysfunction, bedridden status, and functional quadriplegia. 22. Cerebral cortical atrophy of the brain. 23. Microvascular ischemic disease of the brain. 24. Chronic lacunar infarcts and encephalomalacia. 25. Left ventricular ejection fraction of 40% with moderately impaired left ventricular systolic function and septal hypokinesis. 26. Moderate to severely sclerotic aortic valve and moderate aortic regurgitation. 27. Severe mitral regurgitation with moderately thickened mitral valve. 28. Moderate pulmonary hypertension. 29. Large left pleural effusion. 30. 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 31. Post permanent pacemaker implant, left apical pneumothorax. 1. Acute renal failure with worsening underlying chronic kidney disease. 2. Non-hemolyzed hyperkalemia. 3. Hyperphosphatemia. 4. Hypocalcemia. 5. Transaminitis. 6. Elevated lipase, etiology undetermined. 7. Leukocytosis with granulocytosis and normocytic anemia. 8. Macrocytic anemia. 9. Gram-positive cocci urinary tract infection with proteinuria, microscopic hematuria, pyuria, funguria. 10. Gram-positive cocci urinary tract infection. 11. Bilateral pleural effusion with bibasilar compressive atelectasis. 12. Cardiomegaly. 13. Questionable cirrhosis with irregularities of the hepatic margin and perihepatic and perisplenic ascites and extensive anasarca with third spacing. 14. Right-sided colostomy. 15. Severe gait dysfunction and deconditioning and bedridden status. 16. Possible functional quadriplegia. 17. Left ventricular ejection fraction of 40% with concentric left ventricular hypertrophy. 18. Moderately impaired left ventricular systolic function with left ventricular ejection fraction of 40%. 19. Moderately impaired left ventricular systolic function. 20. Moderate to severe aortic valve sclerosis and moderate aortic regurgitation. 21. Severe mitral regurgitation with moderately thickened mitral valve. 22. Moderate pulmonary arterial hypertension. 23. Septal hypokinesis. 24. Moderate aortic regurgitation. 25. Large pleural effusion. 26. Bilateral upper extremity swelling. 27. Poor intravenous access. 28. Cerebral cortical atrophy of the brain with small vessel ischemic disease of the brain and chronic lacunar infarcts and encephalomalacia. 29. Moderately impaired left ventricular systolic function with elevated BNP and systolic congestive heart failure with elevated BNP of 26,000. 30. Macrocytic anemia. 31. Status post non-hemolyzed hyperkalemia. 32. Gram-positive cocci urinary tract infection. 33. History of dementia, Parkinson disease, history of paroxysmal atrial fibrillation with multiple pauses and periods of asystole. 34. Status post permanent pacemaker implant and status post permanent pacemaker implant, left apical pneumothorax. 35. Systemic inflammatory response syndrome. 36. Volume overload with third spacing. 37. Severely debilitated, deconditioning. 38. hyperkalemia. 39. Systemic inflammatory response syndrome. 40. Status post colostomy. 41. History of rectovaginal, rectovesical fistula. 42. History of anxiety disorder, history of dementia, history of Parkinson disease and hypovitaminosis D. 1. Questionable and possible sepsis versus systemic inflammatory response syndrome with hypothermia. 2. Hypotension. 3. Questionable and possible septic shock. 4. Non-hemolyzed hyperkalemia. 5. Acute renal failure with underlying chronic kidney disease. 6. Possible urinary tract infection with pyuria, bacteriuria, proteinuria, hematuria and funguria. 7. Transaminitis. 8. Malnutrition. 9. History of colovesical, colovaginal fistula. 10. History of recurrent sepsis and recurrent urinary tract infection. 11. History of Parkinson's disease, dementia, history of severe gait dysfunction, history of sick sinus syndrome with tachybrady syndrome, history of atrial fibrillation with rapid ventricular response and slow ventricular response with long pauses and periods of asystole. 12. Status post pacemaker implant. 13. History of severe gait dysfunction. 14. Severe deconditioning. 15. Severe gait dysfunction with possible functional quadriplegia. 16. Hypotension. 17. Hyperkalemia. 18. Severe gait dysfunction. 19. Poor intravenous access. 20. Small vessel ischemic disease of the brain. 21. Cerebral cortical atrophy of the brain. 22. Poor intravenous access. PLAN: At this time, the patient seen by nephrology. Their recommendation is the patient will have 3 times a week hemodialysis with additional ultrafiltration sessions. The patient seen by infectious disease. Their recommendation is noted. No antibiotics ordered as per infectious disease. The patient has been ordered serial labs. CURRENT CONSULTATION: 1. Infectious disease. 2. Nephrology. 3. Interventional radiology. 4. Surgery. The patient's case is referred to social media intern, case management for discharge planning. CURRENT MEDICATIONS: 1. Ecotrin 81 mg daily. 2. Ativan 0.5 mg twice a day with holding parameters. 3. Bactroban cream to the affected area of the nasal bridge 3 times a day. 4. Exelon capsule 4.5 mg twice a day. 5. Selenium 200 mcg p.o. daily. 6. Klonopin 4 mg at bedtime. 7. Lasix 60 mg IV q. 8. 8. PhosLo 667 mg with meals. 9. Protonix 40 mg daily. 10. Requip 8 mg at bedtime. 11. Tenormin 12.5 twice a day. 12. Vitamin D3 2000 units daily. 13. Xopenex 0.63 mg every 6 hours. The patient is on BiPAP 12/, FIO2 50%, rate of 18. The patient has been ordered out of bed to chair, ADRIANO stockings, SCDs, occupational therapy, physical therapy. The patient is referred for discharge planning. At present, the patient is not receiving any intravenous therapy and no IV antibiotic therapy. The patient's Lasix has been held by nephrology because of hypotension. The patient was last seen by social media intern on 12/05/2016. The patient is referred to [facility] as patient is not able to return to [facility]. The patient seen by the physical therapist. Their recommendations were noted from 12/04/2016. Their recommendation is subacute rehabilitation. Overall prognosis is guarded to poor. Condition is not improving. The patient is DNR/DNI. Dictated and electronically signed; not read. Rigo Vargas MD cc: [id number] TT: 12/08/2016 12:19:04 Confirmation # [id number] Dictation # [id number] [id number]
[2016-12-08 13:41] LABS: VENOUS BLOOD PH 7.15 (7.32-7.43)
--- NOTE | 2016-12-08 14:36 | CP.PCM.PN ---
<TimLety - Last Filed: 12/08/16 15:19> Subjective - Date & Time of Evaluation Date of Evaluation: 12/08/16 Time of Evaluation: 14:20 - Subjective Subjective: RR called at 14:19 due to lethargy 81yo F, who initially presented from [facility] on 11/29/16 with lethargy, failure to thrive, worsening ARF, leukocytosis and hypotension, and who had PMHx of Rectovaginal fistula and Recto-Urethral Fistula, diverticulosis, CHF, parkinson' s disease, breast CA, had rapid response called for lethargy and not having a response. Pt was on N/C at time of rapid response and became had VBG 40 minutes prior which showed hypercapnic respiratory acidosis. Bibap was initiated and pt then responded verbally to her name and then followed directions for moving on to her side. Pt remained lethargic but is now easily rousable and answers questions. Denies chest pain and n/v. Vitals moments afterwards: 69 HR, 100 Osat, 120/44 PMH: Rectovaginal fistula and Recto-Urethral Fistula, diverticulosis, CHF, parkinson's disease, Hx breast cancer, L chest pacemaker PSH: hysterectomy, L mastectomy, loop colostomy SH: No smoking, EtOH, or drug use All: NKDA Meds: See MAR Objective - Vital Signs/Intake and Output Vital Signs (last 24 hours): Temp Pulse Resp BP Pulse Ox 97.9 F 65 18 110/50 L 98 12/08/16 08:00 12/08/16 08:00 12/08/16 08:00 12/08/16 10:24 12/08/16 08:00 Intake and Output: 12/08/16 12/08/16 06:59 18:59 Intake Total 180 Balance 180 - Medications Medications: Current Medications Aspirin (Aspirin Chewable) 81 mg PO DAILY [facility] Last Admin: 12/08/16 10:18 Dose: 81 mg Atenolol (Tenormin) 12.5 mg PO BID [facility] Last Admin: 12/08/16 10:24 Dose: Not Given Calcium Acetate (Phoslo) 667 mg PO WM [facility] Last Admin: 12/08/16 13:41 Dose: Not Given Cholecalciferol (Vitamin D) 2,000 iu PO DAILY [facility] Last Admin: 12/08/16 10:18 Dose: 2,000 iu Clonazepam (Klonopin) 4 mg PO HS [facility] PRN Reason: Protocol Last Admin: 12/07/16 21:14 Dose: 4 mg Furosemide (Lasix) 60 mg IVP Q8H [facility] Last Admin: 12/05/16 05:20 Dose: Not Given Home Med (Home Med) 1 unit PO DAILY [facility] Last Admin: 12/08/16 10:22 Dose: Not Given Levalbuterol HCl (Xopenex) 0.63 mg IH [id number] [facility] Last Admin: 12/08/16 13:24 Dose: 0.63 mg Lorazepam (Ativan) 0.5 mg PO BID [facility] PRN Reason: Protocol Last Admin: 12/08/16 11:00 Dose: Not Given Mupirocin (Bactroban Ointment) 0.5 gm TOP TID [facility] Last Admin: 12/08/16 10:17 Dose: 1 appl Pantoprazole Sodium (Protonix Ec Tab) 40 mg PO 0630 [facility] Last Admin: 12/08/16 05:57 Dose: 40 mg Rivastigmine (Exelon Cap) 4.5 mg PO BID [facility] Last Admin: 12/08/16 10:17 Dose: 4.5 mg Ropinirole HCl (Requip) 8 mg PO HS [facility] Last Admin: 12/07/16 21:14 Dose: 8 mg - Labs Labs: 12/08/16 06:30 12/08/16 06:30 PT 11.2 Seconds (9.9-11.8) 11/28/16 22:20 INR 1.04 (0.93-1.08) 11/28/16 22:20 APTT 24.6 Seconds (23.7-30.8) 11/28/16 22:20 - Constitutional Appears: No Acute Distress, Unkempt - Respiratory Exam Respiratory Exam: Stridor, NORMAL BREATHING PATTERN - Cardiovascular Exam Cardiovascular Exam: +S1, +S2. absent: Tachycardia - GI/Abdominal Exam GI & Abdominal Exam: absent: Tenderness Additional comments: colostomy bag - Extremities Exam Extremities Exam: Normal Capillary Refill Additional comments: Picc line R arm, b/l pedal edema - Neurological Exam Neurological Exam: Awake - Skin Skin Exam: Intact Additional comments: R chest dialysis catheter Assessment and Plan - Assessment and Plan (Free Text) Plan: 81yo F, who initially presented from [facility] on 11/29/16 with lethargy, failure to thrive, worsening ARF, leukocytosis and hypotension, and who had PMHx of Rectovaginal fistula and Recto-Urethral Fistula, diverticulosis, CHF, parkinson' s disease, breast CA, had rapid response called for lethargy and not having a reponse. Bibap was initiated and pt improved. Lethargy likely secondary to Hypercapnic respiratory acidosis: stat ABG shock panel ordered pH acidotic at 7.18, pCO2 at 57, pO2 is 155, and FiO2 setting at 50% on bipap EKG: paced 66 bpm, occasionally beats of her own. Dr. Ash ordered hemodialysis today and Dr. Vargas agreed. <Libertad Mckay - Last Filed: 12/08/16 16:10> Objective - Vital Signs/Intake and Output Vital Signs (last 24 hours): Temp Pulse Resp BP Pulse Ox 97.9 F 68 18 110/50 L 98 12/08/16 08:00 12/08/16 14:50 12/08/16 08:00 12/08/16 10:24 12/08/16 08:00 Intake and Output: 12/08/16 12/08/16 06:59 18:59 Intake Total 180 60 Balance 180 60 - Medications Medications: Current Medications Aspirin (Aspirin Chewable) 81 mg PO DAILY [facility] Last Admin: 12/08/16 10:18 Dose: 81 mg Atenolol (Tenormin) 12.5 mg PO BID [facility] Last Admin: 12/08/16 10:24 Dose: Not Given Calcium Acetate (Phoslo) 667 mg PO WM [facility] Last Admin: 12/08/16 13:41 Dose: Not Given Cholecalciferol (Vitamin D) 2,000 iu PO DAILY [facility] [place] Last Admin: 12/08/16 10:18 Dose: 2,000 iu Clonazepam (Klonopin) 4 mg PO HS [facility] PRN Reason: Protocol Last Admin: 12/07/16 21:14 Dose: 4 mg Furosemide (Lasix) 60 mg IVP Q8H [facility] Last Admin: 12/05/16 05:20 Dose: Not Given Home Med (Home Med) 1 unit PO DAILY [facility] Last Admin: 12/08/16 10:22 Dose: Not Given Levalbuterol HCl (Xopenex) 0.63 mg IH [id number] [facility] Last Admin: 12/08/16 13:24 Dose: 0.63 mg Lorazepam (Ativan) 0.5 mg PO BID [facility] PRN Reason: Protocol Last Admin: 12/08/16 11:00 Dose: Not Given Mupirocin (Bactroban Ointment) 0.5 gm TOP TID [facility] Last Admin: 12/08/16 10:17 Dose: 1 appl Pantoprazole Sodium (Protonix Ec Tab) 40 mg PO 0630 [facility] Last Admin: 12/08/16 05:57 Dose: 40 mg Rivastigmine (Exelon Cap) 4.5 mg PO BID [facility] Last Admin: 12/08/16 10:17 Dose: 4.5 mg Ropinirole HCl (Requip) 8 mg PO HS [facility] Last Admin: 12/07/16 21:14 Dose: 8 mg - Labs Labs: 12/08/16 06:30 12/08/16 06:30 PT 11.2 Seconds (9.9-11.8) 11/28/16 22:20 INR 1.04 (0.93-1.08) 11/28/16 22:20 APTT 24.6 Seconds (23.7-30.8) 11/28/16 22:20 Attending/Attestation - Attestation I have personally seen and examined this patient.: Yes I have fully participated in the care of the patient.: Yes I have reviewed all pertinent clinical information, including history, physical exam and plan: Yes Notes (Text): 12/08/16 15:49 Initially pt was lethargic,barely responding to verbal stimuli. After she was placed on Bipap,Setting of 12/5 Fio2 50%,rate of 14 she became more responsive, was esaily arousable and was answering questions relevantly. On auscultation,pt had transmitted airway sounds. PPM noted in the L chest wall. Imp:Respiratory Failure Abgs done stat on Bipap settings showed CO2 retention Plan: As already noted, pt was sent for dialysis after discussion with Dr Ash and Dr Vargas.
[2016-12-08 14:41] LABS: ARTERIAL BLOOD GAS HCO3 21.3 mmol/L (21-28)
[2016-12-08 14:43] LABS: ARTERIAL BLOOD GAS PH 7.18 (7.35-7.45)
--- NOTE | 2016-12-08 19:11 | CP.PCM.PN ---
Subjective - Date & Time of Evaluation Date of Evaluation: 12/08/16 Time of Evaluation: 09:40 - Subjective Subjective: Comfortable in bed, not in distress but is somewhat lethargic, no fevers overnight. Objective - Vital Signs/Intake and Output Vital Signs (last 24 hours): Temp Pulse Resp BP Pulse Ox 97.9 F 68 18 110/50 L 98 12/08/16 08:00 12/08/16 14:50 12/08/16 08:00 12/08/16 10:24 12/08/16 08:00 Intake and Output: 12/08/16 12/09/16 18:59 06:59 Intake Total 60 Balance 60 - Medications Medications: Current Medications Aspirin (Aspirin Chewable) 81 mg PO DAILY [facility] Last Admin: 12/08/16 10:18 Dose: 81 mg Atenolol (Tenormin) 12.5 mg PO BID [facility] Last Admin: 12/08/16 10:24 Dose: Not Given Calcium Acetate (Phoslo) 667 mg PO WM [facility] Last Admin: 12/08/16 17:00 Dose: Not Given Cholecalciferol (Vitamin D) 2,000 iu PO DAILY [facility] Last Admin: 12/08/16 10:18 Dose: 2,000 iu Clonazepam (Klonopin) 4 mg PO HS [facility] PRN Reason: Protocol Last Admin: 12/07/16 21:14 Dose: 4 mg Furosemide (Lasix) 60 mg IVP Q8H [facility] Last Admin: 12/05/16 05:20 Dose: Not Given Home Med (Home Med) 1 unit PO DAILY [facility] Last Admin: 12/08/16 10:22 Dose: Not Given Levalbuterol HCl (Xopenex) 0.63 mg IH [id number] [facility] Last Admin: 12/08/16 13:24 Dose: 0.63 mg Lorazepam (Ativan) 0.5 mg PO BID [facility] PRN Reason: Protocol Last Admin: 12/08/16 11:00 Dose: Not Given Mupirocin (Bactroban Ointment) 0.5 gm TOP TID [facility] Last Admin: 12/08/16 16:59 Dose: Not Given Pantoprazole Sodium (Protonix Ec Tab) 40 mg PO 0630 [facility] Last Admin: 12/08/16 05:57 Dose: 40 mg Rivastigmine (Exelon Cap) 4.5 mg PO BID [facility] Last Admin: 12/08/16 10:17 Dose: 4.5 mg Ropinirole HCl (Requip) 8 mg PO HS [facility] Last Admin: 12/07/16 21:14 Dose: 8 mg - Labs Labs: 12/08/16 06:30 12/08/16 06:30 PT 11.2 Seconds (9.9-11.8) 11/28/16 22:20 INR 1.04 (0.93-1.08) 11/28/16 22:20 APTT 24.6 Seconds (23.7-30.8) 11/28/16 22:20 - Constitutional Appears: Non-toxic, No Acute Distress - Head Exam Head Exam: NORMAL INSPECTION - ENT Exam ENT Exam: Mucous Membranes Moist - Neck Exam Neck Exam: absent: Lymphadenopathy, Meningismus - Respiratory Exam Respiratory Exam: Decreased Breath Sounds Additional comments: right anterior chest wall HD catheter in place - Cardiovascular Exam Cardiovascular Exam: +S1, +S2 - GI/Abdominal Exam GI & Abdominal Exam: Soft. absent: Tenderness - Extremities Exam Additional comments: right arm PICC line site clean and intact Assessment and Plan - Assessment and Plan (Free Text) Plan: Assessment acute respiratory failure due to fluid overload from CHF and volume overload from acute on chronic renal failure Cardiac arrhythmia and atrial fibrillation S/P pacemaker placement and development of left sided pneumothorax rectovesical fistula with inadequate drainage of urine and stool S/P loop colostomy VRE in the urine probably colonization chronic CHF Parkinson's disease history of breast cancer history of rectovesical and rectovaginal fistula Plan continue to monitor off antibiotics since she is at risk for hospital-acquired infections Overall prognosis is poor
--- NOTE | 2016-12-08 19:42 | PN ---
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 She found to have acute hypercapnic respiratory failure and persistent acute renal failu re. Nephrology was consulted for the same. The patient, per family, has been very lethargic today, although did have some of her lunch. The pat ient arousable and denies any complaints. PHYSICAL EXAMINATION: VITAL SIGNS: Blood pressure 116/57, heart rate 69, respirations 20, temperature 97.9, O2 sat 97%. GENERAL: Lethargic but arousable and responding to verbal stimulus. HEENT: Nonicteric. CHEST: Poor air movement bilaterally. No rhonchi, no wheezes. CARDIOVASCULAR: S1, S2 normal, no gallops, no rubs. Soft systolic murmur present. ABDOMEN: Soft, nontender, nondistended. GENITOURINARY: No bladder distention. EXTREMITIES: Moderately edematous in proximal legs bilaterally. SKIN: Warm to touch, no cyanosis. LABORATORY DATA: This morning, CBC: WBC 10.3, hemoglobin 10.5, hematocrit 34.1, platelets 137. Naomi charmaine: Sodium 137, potassium 4.4, chloride 106, bicarbonate 24, BUN 55, creatinine 3.5, glucose 76, calcium 8.0, phosphorus 5.7, albumin 2.6. Venous blood gas done this afternoon: pH 7.15, pCO2 of 6 6. ABG done subsequently: pH 7.18, pCO2 57, pO2 155, saturation 98% on 50% FIO2 via BiPAP. ASSESSMENT: 1. Acute renal failure, acute kidney injury on chronic kidney disease secondary to acute tubular nec rosis with superimposed cardiorenal syndrome, anuric renal failure, receiving hemodialysis 3-4 times per week. Tolerated hemodialysis and ultrafiltration well today with only transient hypotension that resolved spontaneously, next hemodialysis session for Thursday. The patient needs to continue to h ave volume removed in order to maintain adequate hemodynamic status in the setting of congestive hear t failure. 2. Acute decompensated congestive heart failure, hemodynamically much improved after initiating hemo dialysis. Edema also improving. Goal is to keep euvolemic with ultrafiltration on hemodialysis. Co ntinue as mentioned above. 3. Hyperkalemia. Resolved, being managed with hemodialysis. 4. Hypercapnic respiratory failure. The patient with persistently elevated pCO2 secondary to poor e ffort of breathing, CO2 necrosis improved with BiPAP. The patient needs to be maintained on BiPAP in definitely and should continue to receive BiPAP during the day as well with only short breaks for p.o . intake. 5. Atrial fibrillation. Currently, rate controlled on atenolol 12.5 mg b.i.d. Recommend to continu e the same and avoid adding further agents as this will cause hypotension. The patient's prognosis discussed with family. Acute renal failure may not resolve in the setting of patient's congestive heart failure with mitral regurgitation. However, at this point, cannot be tiffanie ignated as endstage renal disease until at least 4 weeks have resolved with dialysis dependent renal failure. Awaiting social work to set up outpatient hemodialysis. Wally Ash MD cc: [id number] TT: 12/08/2016 19:41:31 Confirmation # [id number] Dictation # [id number]
--- NOTE | 2016-12-09 02:03 | CARD ---
APPROVED REPORT EKG Measurement Heart [id number] <Conclusion> Electronic ventricular pacemaker
[2016-12-09] MEDS: Levalbuterol 0.63 MG/3 ML Inhal Soln UD IH SCH ×4 (03:00→19:10)
[2016-12-09] MEDS: Pantoprazole 40 mg EC Tab PO SCH (06:39)
[2016-12-09 07:52] LABS: ADD MANUAL DIFF? NO
[2016-12-09 07:58] LABS: BASO # 0.02 K/mm3 (0.0-2.0); BASO % 0.2 % (0.0-3.0); EOS # 0.2 (0.0-0.7); EOS % 2.7 % (1.5-5.0); GRAN # 6.11 (1.4-6.5); GRAN % 69.9 % (50.0-68.0); HEMATOCRIT 33.4 % (36.0-48.0); LYMPH # 1.7 (1.2-3.4); LYMPH % 19.5 % (22.0-35.0); MEAN CELL VOLUME 100.6 fL (80.0-105.0); MEAN CORPUSCULAR HEMOGLOBIN 31.3 pg (25.0-35.0); MEAN CORPUSCULAR HGB CONC 31.1 g/dl (31.0-37.0); MEAN PLATELET VOLUME 11.1 fl (7.0-11.0); MONO # 0.7 (0.1-0.6); MONO % 7.7 % (1.0-6.0); PLATELET COUNT 132 10^3/uL (120.0-450.0); RED CELL DISTRIBUTION WIDTH 18.6 % (11.5-14.5); WHITE BLOOD COUNT 8.7 10^3/ul (4.5-11.0)
[2016-12-09 08:11] LABS: ALB/GLOB RATIO 0.8 (1.1-1.8); BILIRUBIN,DIRECT 0.4 mg/dL (0.0-0.4); BILIRUBIN,TOTAL 0.5 mg/dL (0.2-1.3); CALCIUM 7.8 mg/dL (8.4-10.5); MAGNESIUM 1.9 mg/dL (1.7-2.2); PHOSPHOROUS 4.5 mg/dL (2.5-4.5); POTASSIUM 3.9 mmol/L (3.6-5.0); TOTAL PROTEIN 5.9 g/dL (5.8-8.3)
--- NOTE | 2016-12-09 08:31 | CP.PCM.CON ---
History of Present Illness - History of Present Illness History of Present Illness: Palliative consult requested by Dr Vargas Reason: Goals of care 81 year old female admitted with renal failure She was recently discharged from [facility] after having rectal vesivulo fistulas repair, loop colostomy. She also developed atrial fibrillation, pneumothorax,sepsis, and MARCIANO . PMHx: breast cancer s/p left mastectomy, Parkinson's disease , CHF,HTN, altered mental status,depression, deconditioining. Social History: Non smoker, no alcohol or drug use. lives with spouse and son. Family History: Non contributory Advance Care Planning: She has a POLST. She is DNR/DNI. Review of Systems: Past Patient History - Infectious Disease Hx of Infectious Diseases: None - Past Medical History & Family History Past Medical History?: Yes - Past Social History Smoking Status: Never Smoked - CARDIAC Hx Cardiac Disorders: Yes Hx Congestive Heart Failure: Yes Hx Hypertension: Yes - PULMONARY Hx Respiratory Disorders: No Hx Chronic Obstructive Pulmonary Disease (COPD): No - NEUROLOGICAL Hx Neurological Disorder: Yes HX Cerebrovascular Accident: No Hx Parkinson's Disease: Yes - HEENT Hx HEENT Problems: No - RENAL Hx Chronic Kidney Disease: Yes (URINARY RETENTION) Hx Renal Failure: No - ENDOCRINE/METABOLIC Hx Endocrine Disorders: No Hx Diabetes Mellitus Type 1: No Hx Diabetes Mellitus Type 2: No Hx Hypothyroidism: No - HEMATOLOGICAL/ONCOLOGICAL Hx Blood Transfusions: Yes Hx Blood Transfusion Reaction: No - INTEGUMENTARY Hx Dermatological Problems: Yes Other/Comment: MULTIPLE PUSTULES AND BROWN PLAQUES TO FACE AND BACK. - MUSCULOSKELETAL/RHEUMATOLOGICAL Hx Arthritis: No Hx Falls: Yes - GASTROINTESTINAL Hx Gastrointestinal Disorders: Yes (COLOVESICAL FISTULA) Hx Gastroesophageal Reflux: No Other/Comment: Colostomy - GENITOURINARY/GYNECOLOGICAL Hx Genitourinary Disorders: Yes (BREAST CA -LEFT MASTECTOMY.) Other/Comment: VESICOVAGINAL FISTULA,RECTOVAGINAL FISTULA,HYSTERECTOMY - PSYCHIATRIC Hx Psychophysiologic Disorder: Yes Hx Anxiety: Yes Hx Substance Use: No - SURGICAL HISTORY Other/Comment: Colostomy - ANESTHESIA Hx Anesthesia: Yes Hx Anesthesia Reactions: No Hx Malignant Hyperthermia: No Meds Home Medications: Home Medication List Medication Instructions Recorded Confirmed Type Aspirin [Aspirin Chewable] 81 mg PO DAILY 12/01/16 Rx Furosemide [Lasix] 40 mg IVP Q12 #60 vial 12/01/16 Rx Home Med 1 unit PO DAILY ea 12/01/16 Rx Allergies/Adverse Reactions: Allergies Allergy/AdvReac Type Severity Reaction Status Date / Time No Known Allergies Allergy Verified 11/12/16 21:15 - Medications Medications: Current Medications Aspirin (Aspirin Chewable) 81 mg PO DAILY [facility] Last Admin: 12/08/16 10:18 Dose: 81 mg Atenolol (Tenormin) 12.5 mg PO BID [facility] Last Admin: 12/08/16 10:24 Dose: Not Given Calcium Acetate (Phoslo) 667 mg PO WM [facility] Last Admin: 12/09/16 08:11 Dose: 667 mg Cholecalciferol (Vitamin D) 2,000 iu PO DAILY [facility] Last Admin: 12/08/16 10:18 Dose: 2,000 iu Clonazepam (Klonopin) 4 mg PO HS [facility] PRN Reason: Protocol Home Med (Home Med) 1 unit PO DAILY [facility] Last Admin: 12/08/16 10:22 Dose: Not Given Levalbuterol HCl (Xopenex) 0.63 mg IH [id number] [facility] Last Admin: 12/09/16 07:10 Dose: 0.63 mg Lorazepam (Ativan) 0.5 mg PO BID [facility] PRN Reason: Protocol Last Admin: 12/08/16 11:00 Dose: Not Given Mupirocin (Bactroban Ointment) 0.5 gm TOP TID [facility] Last Admin: 12/08/16 16:59 Dose: Not Given Pantoprazole Sodium (Protonix Ec Tab) 40 mg PO 0630 [facility] Last Admin: 12/09/16 06:39 Dose: 40 mg Rivastigmine (Exelon Cap) 4.5 mg PO BID [facility] Ropinirole HCl (Requip) 8 mg PO HS [facility] Results - Vital Signs Recent Vital Signs: Last Vital Signs Temp 97.6 F 12/08/16 19:15 Pulse 90 12/09/16 08:13 Resp 18 12/09/16 08:13 BP 115/89 12/09/16 08:13 Pulse Ox 95 12/09/16 08:13 - Labs Result Diagrams: 12/09/16 07:30 12/09/16 07:30 Labs: Laboratory Results - last 24 hr 12/05/16 12/08/16 12/08/16 08:48 13:10 14:30 WBC RBC Hgb Hct MCV MCH MCHC RDW Plt Count MPV Gran % Lymph % (Auto) [place] % (Auto) Eos % (Auto) Baso % (Auto) Gran # Lymph # [place] # Eos # Baso # pCO2 57 H pO2 44 155.0 H HCO3 21.3 ABG pH 7.18 L* ABG Total CO2 23.0 ABG O2 Saturation 98.8 H ABG Base Excess -7.7 L ABG Potassium 4.8 VBG pH 7.15 L* VBG pCO2 66.0 H* VBG HCO3 23.0 VBG Total CO2 25.0 VBG O2 Sat (Calc) 82.0 H VBG Base Excess -7.0 L VBG Potassium 4.6 Sodium 135.0 135.0 Chloride 111.0 H 112.0 H Glucose 89 88 Lactate 0.8 0.8 FiO2 21.0 50.0 Inspiratory BiPAP 12 Arterial Blood Potassium 4.8 Venous Blood Potassium 4.6 Crossmatch See Detail 12/09/16 07:30 WBC 8.7 RBC 3.32 L Hgb 10.4 L Hct 33.4 L MCV 100.6 MCH 31.3 MCHC 31.1 RDW 18.6 H Plt Count 132 MPV 11.1 H Gran % 69.9 H Lymph % (Auto) 19.5 L [place] % (Auto) 7.7 H Eos % (Auto) 2.7 Baso % (Auto) 0.2 Gran # 6.11 Lymph # 1.7 [place] # 0.7 H Eos # 0.2 Baso # 0.02 pCO2 pO2 HCO3 ABG pH ABG Total CO2 ABG O2 Saturation ABG Base Excess ABG Potassium VBG pH VBG pCO2 VBG HCO3 VBG Total CO2 VBG O2 Sat (Calc) VBG Base Excess VBG Potassium Sodium Chloride Glucose Lactate FiO2 Inspiratory BiPAP Arterial Blood Potassium Venous Blood Potassium Crossmatch Assessment & Plan - Assessment and Plan (Free Text) Assessment: 81 year old female admitted with acute renal failure, sepsis, Patient has multiple comorbidites, please see PMH. The patient is lethargic and short of breath today. Her affect is flat. The patient and family are known to me for prior admission. During the last admission and after speaking with multiple consultants, the family had decided to pursue hospice care. On 11/12/16, I also had a very lengthy conversation with and son. Family was accepting that patient's health was steadily declining. Family had agreed that dialysis was a temporary solution and that patient's overall health was declining.The family had agreed to hospice and was scheduled to take patient home on 11/13/16 under [facility].. Later, after speaking with oval or circular glass cutter, the family rescinded plan for hospice. Last week, on 12/04/16 dialysis was again offered as a temporary solution to patients declining condition. Family agreed for placement of [place] catheter and dialysis. I spoke with family at length about the benefits and burdens of dialysis. We discussed patient multiple comorbidites and I asked them to consider patients quality of life from this stand point. I explained that dialysis was not going to resolve other medical issues and would likely be needed on a regular basis. I also made family aware that if they wanted to continue with dialysis that they need to revisit discharge plan, as patient could not return to [facility] while receiving regular dialysis. Family insisted that dialysis proceed. The next day when I visited the patient she was more alert and able to participate in conversation. The patient stated that she would be willing to continue dialysis treatments. Plan: Will follow and assist with establishing future goals of care and advance care planning.
[2016-12-09] MEDS: SELENIUM 200 MCG PO SCH (09:47)
--- NOTE | 2016-12-09 11:51 | PN ---
DATE: 12/09/2016 The patient is seen lying in the bed in room 562, bed 1. The patient is comfortable. The patient is on facemask O2. The patient is awake, responsive. The patient is able to answer questions. The patient is alert, awake, responsive, does not appear to be in any distress. Overnight nurse's notes were reviewed. Last 24-hour events were reviewed. PHYSICAL EXAMINATION: VITAL SIGNS: T-max afebrile, heart rate 64-73-90, blood pressure is ____/89, 127/60, 110/50, 111/48, 111/46, 116/57. Respiration 18-20, O2 sat 95% on room air, 90% on room air,100% on nasal cannula. Intake/output: Urine output documented at 25 mL. HEAD: Normocephalic, atraumatic. HEENT: Shows pinkish, pale conjunctivae, anicteric sclerae, no oropharyngeal lesion. Positive Ventimask noted. The patient is awake and responsive. NECK: No jugulovenous distention. Soft carotid bruit. CHEST: Kyphosis. LUNGS: Show occasional rhonchi upper lung walls anteriorly, decreased breath sounds at the left base. CARDIOVASCULAR: Shows S1, S2, regular rhythm. Positive systolic murmur left sternal border, right second intercostal space. ABDOMEN: Soft. Positive colostomy. Decreasing protuberance. GENITALIA: Female. Positive Ramirez catheter. EXTREMITIES: Show decreasing swelling of the upper extremity. Positive right upper extremity PICC line. Positive left upper chest pacemaker. Positive right neck IJ [place] dialysis catheter. Positive ADRIANO stockings of the lower extremity and almost complete resolution of the pitting edema with trace swelling of the lower extremity. VASCULAR: Palpable pulses. MUSCULOSKELETAL: Shows a body mass index of 30.7. NEUROLOGIC: The patient is alert, awake, responsive, is able to answer simple questions, able to recognize me and recognize herself and her . PSYCHIATRIC: Negative for suicidal or homicidal ideation at present. Negative for auditory or visual hallucination. DIAGNOSTICS: 12/09, WBC 8.7, hemoglobin and hematocrit 10.4 and 33.4, platelet 132, granulocytes 70. Sodium 136, potassium 3.9, chloride 101, CO2 28, anion gap 11, BUN 31, creatinine 2.6, GFR 21, glucose 75, calcium 7.8, phosphorus 4.5. LFTs show alk phos 180, total albumin 2.6. EKG yesterday was a paced rhythm. IMPRESSION: 1. Acute renal failure, acute kidney injury. 2. Questionable and possible end-stage renal disease, at present hemodialysis requiring. 3. Underlying chronic kidney disease stage IV. 4. Acute tubular necrosis. 5. Cardiorenal syndrome. 6. Anuric renal failure. 7. Status post hemodialysis and ultrafiltration. 8. Transient hypotension. 9. Metabolic acidosis. 10. Non-hemolyzed hyperkalemia. 11. Chronic hypercapnic respiratory failure, intermittent BiPAP and oxygen requiring. 12. Atrial fibrillation with rapid ventricular response and slow ventricular response. 13. Hypoxemia. 14. Leukocytosis with granulocytosis. 15. Normocytic anemia. 16. Status post packed red blood cell transfusion. 17. Granulocytosis. 18. Hypoalbuminemia. 19. Hyperphosphatemia. 20. Vancomycin-resistant Enterococcus faecium urinary tract infection versus contamination and funguria and proteinuria and microscopic hematuria, pyuria, bacteriuria. 21. Status post packed red blood cell transfusion x 1. 22. Severe deconditioning. 23. Gait dysfunction. 24. Severe gait dysfunction and bedridden status. 25. Possible functional quadriplegia. 26. Severe deconditioning. 1. Questionable and possible end-stage renal disease, hemodialysis dependent. 2. Acute renal failure with underlying chronic kidney disease, stage III. 3. Acute kidney injury. 4. Acute tubular necrosis. 5. Cardiorenal syndrome. 6. Episodic hypotension. 7. Anuric renal failure. 8. Non-hemolyzed hyperkalemia. 9. Mitral regurgitation. 10. Hypercapnic respiratory failure with hypercarbia and hypercapnia. 11. Atrial fibrillation with rapid and slow ventricular response with long pauses and periods of ____ asystole. 12. Status post permanent pacemaker implant. 13. Post permanent pacemaker left apical pneumothorax. 14. Status post left-sided chest tube placement for pneumothorax. 15. Status post loop colostomy. 16. Vancomycin-resistant enterococcus colonization. 17. Severe deconditioning and gait dysfunction, bedridden status and functional quadriplegia. 18. Episodic hypotension. 19. Episodic hypoxemia. 20. Normocytic anemia, status post packed red blood cell transfusion. 21. Granulocytosis. 22. Status post non-hemolyzed hyperkalemia. 23. Hypoalbuminemia. 24. Severe deconditioning. 1. Acute renal failure and acute kidney injury. 2. Acute tubular necrosis. 3. Cardiorenal syndrome. 4. Volume overload with anasarca. 5. Bilateral upper and lower extremity pitting edema and stranding (resolving) 6. Vancomycin-resistant Enterococcus faecium urinary tract infection and funguria. 7. Acute blood loss anemia, etiology undetermined. 8. Status post packed red blood cell transfusion. 9. Acute hypercapnic, hypercarbic respiratory failure. 10. Severe deconditioning and gait dysfunction with bedridden status and possible functional quadriplegia. 11. History of dementia, history of Parkinson disease, history of anxiety, depression. 12. Kyphosis of the spine. 13. Bilateral pleural effusion, left more than the right. 14. Status post ultrasound guided left thoracentesis with removal of 700 mL of pleural fluid with decreasing bilateral pleural effusion. 15. Cardiomegaly. 16. Atrial fibrillation with rapid ventricular response and slow ventricular response with long pauses and periods of asystole. 17. Status post permanent pacemaker implant. 18. Left apical pneumothorax, post pacemaker implant. 19. Poor intravenous access. 20. Status post right upper extremity peripherally inserted central catheter line. 21. History of colovesical, colovaginal fistula. 22. Status post loop colostomy. 22. Cardiorenal syndrome. 1. Hypotension with periods and episodic transient hypertension. 2. Hypoxemia. 3. Leukocytosis with granulocytosis. 4. Decreasing hemoglobin and hematocrit with normocytic anemia. 5. Granulocytosis. 6. Acute hypercapneic, hypercarbic respiratory failure. 7. Metabolic acidosis and non-hemolyzed hyperkalemia. 8. Acute renal failure, acute kidney injury and acute tubular necrosis. 9. Cardiorenal syndrome. 10. Transaminitis. 11. Hypoalbuminemia. 12. Hyperprocalcitonemia. 13. Vancomycin-resistant Enterococcus faecium urinary tract infection and funguria and proteinuria, hematuria, pyuria, bacteriuria and funguria. 14. Status post right upper extremity peripherally inserted central catheter line placement. 15. Right internal jugular dialysis catheter placement. 16. Status post ultrasound-guided left thoracentesis, removal of 700 mL of fluid. 17. Acute renal failure, acute kidney injury and chronic kidney disease stage IV. 18. Acute tubular necrosis. 19. Cardiorenal syndrome. 20. Status post hemodialysis. 21. Status post hemodialysis and ultrafiltration. 22. Volume overload and third spacing. 23. Atrial fibrillation with rapid ventricular response and slow ventricular response with long pauses and asystole. 24. Persistent leukocytosis. 25. Status post left upper chest permanent pacemaker implant. 26. Post-pacemaker implant left apical pneumothorax. 27. History of rectovesical, rectovaginal fistula, status post loop colostomy. 28. Questionable left upper lobe healthcare-associated pneumonia. 29. Bilateral pleural effusion. 30. Hypoxemia. 31. History of anxiety, depression, dementia, Parkinson disease. 32. Hyperphosphatemia. 33. Hypovitaminosis D. 1. Acute renal failure, acute kidney injury with nonhemolyzed hyperkalemia and acute tubular necrosis. 2. Status post hemodialysis. 3. Status post right internal jugular [place] and dialysis catheter placement. 4. Status post ultrasound guided left thoracentesis with removal of 700 mL of pleural fluid. 5. Hypertension. 6. Hypoxemia. 7. Acute hypercarbic hypercapnic BiPAP-requiring respiratory failure. 8. Left upper lobe healthcare-associated pneumonia. 9. Bilateral pleural effusion with improvement. 10. Cardiomegaly. 11. Status post left-sided permanent pacemaker implant. 12. Severe deconditioning. 13. Vancomycin-resistant Enterococcus faecium urinary tract infection and funguria. 14. Leukocytosis with granulocytosis. 15. Non-hemolyzed hyperkalemia. 16. Hyperphosphatemia. 17. Transaminitis. 18. Hyperprocalcitoninemia. 19. Vancomycin-resistant Enterococcus faecium urinary tract infection and funguria with proteinuria, hematuria, pyuria, and bacteriuria. 20. Severe deconditioning, gait dysfunction and bedridden status. 21. Possible functional quadriplegia. 22. Encephalopathy. 23. New left upper lobe healthcare-associated pneumonia. 24. Fluid and volume overload. 25. Atrial fibrillation with rapid ventricular response and slow ventricular response with long pauses and periods of asystole. 26. Status post left upper chest permanent pacemaker implant. 27. Oliguric/anuric renal failure with acute tubular necrosis with cardiorenal syndrome. 28. Episodic hypotension. 29. Systemic inflammatory response syndrome with hyperprocalcitoninemia. 30. Non-hemolyzed hyperkalemia. 31. Bilateral lower extremity venous stasis. 32. History of anxiety, depression, dementia, Parkinson's disease. 33. Hyperphosphatemia. 34. Hypovitaminosis D. 1. Worsening acute renal failure with recurrent refractory non-hemolyzed hyperkalemia. 2. Persistent refractory leukocytosis with granulocytosis. 3. Normocytic anemia. 4. Metabolic acidosis with hypercarbia and acute hypercarbic hypercapnic respiratory failure. 5. Underlying chronic kidney disease stage IV. 6. Hyperphosphatemia. 7. Transaminitis. 8. Hypoalbuminemia. 9. Vancomycin-resistant Enterococcus faecium and yeast species questionable urinary tract infection with proteinuria, hematuria, pyuria, bacteriuria, funguria. 10. Status post ultrasound-guided left thoracentesis with drainage of 700 mL of pleural fluid. 11. Left upper lobe patchy new infiltrate. 12. Decreasing bilateral pleural effusion with cardiomegaly. 13. Status post permanent pacemaker implant. 14. Post-pacemaker left apical pneumothorax. 15. Hypercarbic respiratory failure. 16. Status post loop colostomy with removal of the ostomy bridge. 17. Transient hypotension. 18. Acute renal failure, acute kidney injury with underlying chronic kidney disease with acute tubular necrosis with granular casts in the urine. 19. Possible cardiorenal syndrome. 20. Non-gap metabolic acidosis. 21. History of atrial fibrillation with rapid ventricular response and slow ventricular response with periods of asystole and long pauses. 22. Acute hypercapnic respiratory failure secondary to volume overload. 23. Status post left apical pneumothorax. 24. History of rectovesical, rectovaginal fistula. 25. Parkinson's disease. 26. History of dementia, history of atrial fibrillation, history of systolic congestive heart failure. 1. Acute renal failure with worsening and decreasing urine output. 2. Volume overload with anasarca and bilateral pleural effusions. 3. Lethargy. 4. Transient hypotension. 5. History of hypertension. 6. Leukocytosis with granulocytosis. 7. Macrocytic anemia. 8. Hypercarbic and hypercapnic respiratory failure. 9. Non-hemolyzed hyperkalemia. 10. Acute renal failure, acute kidney injury with underlying chronic kidney disease stage IV/V. 11. Hyperphosphatemia. 12. Elevated alkaline phosphatase. 13. Hypoalbuminemia. 14. Vancomycin-resistant Enterococcus faecium urinary tract infection and funguria and gram-positive cocci urinary tract infection. 15. Severe gait dysfunction and bedridden status and severe deconditioning. 16. Functional quadriplegia. 17. Bilateral pleural effusion with bibasilar atelectasis and cardiomegaly. 18. Possible hepatic cirrhosis with perihepatic, perisplenic ascites and extensive anasarca with third spacing and volume overload. 19. Status post colostomy. 20. Bibasilar atelectasis. 21. Status post right upper extremity peripherally inserted central catheter line placement. 22. History of dementia. 23. Left ventricular ejection fraction of 40% with moderately impaired left ventricular systolic function and septal hypokinesis. 24. Moderate to severely sclerotic aortic valve with moderate aortic regurgitation. 25. Severe mitral regurgitation with moderately thickened mitral valve. 26. Moderate pulmonary arterial hypertension. 27. Bilateral pleural effusion, left more than the right. 28. Status post permanent pacemaker. 29. Severe deconditioning. 30. Acute tubular necrosis. 31. History of dementia. 32. History of paroxysmal atrial fibrillation with rapid ventricular response and slow ventricular response with long pauses and periods of asystole. 33. History of dementia, Parkinson disease, anxiety, depression. 34. Status post permanent pacemaker implant. 35. Post permanent pacemaker left apical pneumothorax. 36. Hypothermia. 37. Systemic inflammatory response syndrome. 38. Deconditioning. 39. History of anxiety disorder. 40. Non-hemolyzed hyperkalemia. 41. Hyperphosphatemia. 42. Hypovitaminosis D. 1. Recurrent acute renal failure. 2. Recurrent non-hemolyzed hyperkalemia. 3. Status post right upper extremity peripherally-inserted central catheter line placement for poor intravenous access. 4. Vancomycin-resistant enterococcus urinary tract infection and funguria. 5. Systemic inflammatory response syndrome. 6. Acute renal failure with underlying chronic kidney disease stage III/IV. 7. Acute tubular necrosis. 8. Non-hemolyzed hyperkalemia. 9. Third spacing with volume and fluid overload with bilateral pleural effusion and anasarca. 10. Hypercapnic respiratory failure. 11. Leukocytosis with granulocytosis. 12. Normocytic anemia. 13. Non-hemolyzed hyperkalemia. 14. Hyperphosphatemia. 15. Hypoalbuminemia. 16. Funguria. 17. Vancomycin-resistant Enterococcus faecalis faecium, enterococcus faecium urinary tract infection and funguria with proteinuria, hematuria, pyuria, bacteriuria, and funguria. 18. Bilateral pleural effusion with bibasilar atelectasis and cardiomegaly. 19. Questionable and possible cirrhosis with perihepatic and perisplenic ascites with anasarca and third spacing. 20. Right-sided colostomy. 21. Severe deconditioning, gait dysfunction, bedridden status, and functional quadriplegia. 22. Cerebral cortical atrophy of the brain. 23. Microvascular ischemic disease of the brain. 24. Chronic lacunar infarcts and encephalomalacia. 25. Left ventricular ejection fraction of 40% with moderately impaired left ventricular systolic function and septal hypokinesis. 26. Moderate to severely sclerotic aortic valve and moderate aortic regurgitation. 27. Severe mitral regurgitation with moderately thickened mitral valve. 28. Moderate pulmonary hypertension. 29. Large left pleural effusion. 30. 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 31. Post permanent pacemaker implant, left apical pneumothorax. 1. Acute renal failure with worsening underlying chronic kidney disease. 2. Non-hemolyzed hyperkalemia. 3. Hyperphosphatemia. 4. Hypocalcemia. 5. Transaminitis. 6. Elevated lipase, etiology undetermined. 7. Leukocytosis with granulocytosis and normocytic anemia. 8. Macrocytic anemia. 9. Gram-positive cocci urinary tract infection with proteinuria, microscopic hematuria, pyuria, funguria. 10. Gram-positive cocci urinary tract infection. 11. Bilateral pleural effusion with bibasilar compressive atelectasis. 12. Cardiomegaly. 13. Questionable cirrhosis with irregularities of the hepatic margin and perihepatic and perisplenic ascites and extensive anasarca with third spacing. 14. Right-sided colostomy. 15. Severe gait dysfunction and deconditioning and bedridden status. 16. Possible functional quadriplegia. 17. Left ventricular ejection fraction of 40% with concentric left ventricular hypertrophy. 18. Moderately impaired left ventricular systolic function with left ventricular ejection fraction of 40%. 19. Moderately impaired left ventricular systolic function. 20. Moderate to severe aortic valve sclerosis and moderate aortic regurgitation. 21. Severe mitral regurgitation with moderately thickened mitral valve. 22. Moderate pulmonary arterial hypertension. 23. Septal hypokinesis. 24. Moderate aortic regurgitation. 25. Large pleural effusion. 26. Bilateral upper extremity swelling. 27. Poor intravenous access. 28. Cerebral cortical atrophy of the brain with small vessel ischemic disease of the brain and chronic lacunar infarcts and encephalomalacia. 29. Moderately impaired left ventricular systolic function with elevated BNP and systolic congestive heart failure with elevated BNP of 26,000. 30. Macrocytic anemia. 31. Status post non-hemolyzed hyperkalemia. 32. Gram-positive cocci urinary tract infection. 33. History of dementia, Parkinson disease, history of paroxysmal atrial fibrillation with multiple pauses and periods of asystole. 34. Status post permanent pacemaker implant and status post permanent pacemaker implant, left apical pneumothorax. 35. Systemic inflammatory response syndrome. 36. Volume overload with third spacing. 37. Severely debilitated, deconditioning. 38. hyperkalemia. 39. Systemic inflammatory response syndrome. 40. Status post colostomy. 41. History of rectovaginal, rectovesical fistula. 42. History of anxiety disorder, history of dementia, history of Parkinson disease and hypovitaminosis D. 1. Questionable and possible sepsis versus systemic inflammatory response syndrome with hypothermia. 2. Hypotension. 3. Questionable and possible septic shock. 4. Non-hemolyzed hyperkalemia. 5. Acute renal failure with underlying chronic kidney disease. 6. Possible urinary tract infection with pyuria, bacteriuria, proteinuria, hematuria and funguria. 7. Transaminitis. 8. Malnutrition. 9. History of colovesical, colovaginal fistula. 10. History of recurrent sepsis and recurrent urinary tract infection. 11. History of Parkinson's disease, dementia, history of severe gait dysfunction, history of sick sinus syndrome with tachybrady syndrome, history of atrial fibrillation with rapid ventricular response and slow ventricular response with long pauses and periods of asystole. 12. Status post pacemaker implant. 13. History of severe gait dysfunction. 14. Severe deconditioning. 15. Severe gait dysfunction with possible functional quadriplegia. 16. Hypotension. 17. Hyperkalemia. 18. Severe gait dysfunction. 19. Poor intravenous access. 20. Small vessel ischemic disease of the brain. 21. Cerebral cortical atrophy of the brain. 22. Poor intravenous access. CURRENT MEDICATIONS: 1. Aspirin 81 mg daily. 2. Ativan 0.5 twice a day with holding parameters for ____ sedation. 3. Bactroban cream to the affected area 3 times a day. 4. Exelon 4.5 mg twice a day with holding parameters for sedation and lethargy. 5. Selenium 200 mcg daily. 6. Klonopin 4 mg at bedtime with holding parameters for sedation and lethargy. 7. PhosLo 667 mg with meals. 8. Protonix 40 mg daily. 9. Requip 8 mg at bedtime with holding parameters for sedation and lethargy. 10. Tenormin 12.5 twice a day. 11. Vitamin D3 2000 units daily. 12. Xopenex nebulizer 0.63 mg every 6 hours to be continued. The patient has been ordered ADRIANO stockings, SCDs, out of bed to chair. Physical therapy, occupational therapy ordered. The patient is awaiting discharge planning to a facility where the patient can receive hemodialysis as the patient and the patient's family now requesting to continue with the hemodialysis as per nephrology recommendation. The patient has also been referred to palliative care which I have discussed with the patient's at length. I have explained to the patient's on a daily basis since the weekend in a very clear layman's language that the patient may require short -term and long-term dialysis at present and the patient will require 24-hour care and supervision after discharge from the hospital. The patient may require long-term correction placement if the patient's family is unable to care for the patient at home. The patient's spouse has been extensively explained about overall patient's guarded to poor prognosis. All of the above has been explained to the patient's son and the on multiple occasions on a regular basis in layman's language. All questions and concerns answered to their satisfaction. At this time, looking at overall management information and data, the patient best is suited for possibly long-term placement as patient has not done much on physical therapy evaluation and the patient has refused physical therapy according to one of the physical therapy notes and the patient has not been able to do much of physical therapy. The patient may require more than subacute rehab. Maybe, the patient requires acute rehab versus long-term placement. Dictated and electronically signed, not read. Rigo Vargas MD cc: [id number] TT: 12/09/2016 11:50:24 Confirmation # [id number] Dictation # [id number] [id number]
--- NOTE | 2016-12-09 13:57 | CP.PCM.PN ---
Subjective - Date & Time of Evaluation Date of Evaluation: 12/09/16 Time of Evaluation: 09:40 - Subjective Subjective: Patient is more awake today, no fevers overnight, not in distress, stools in the colostomy is not watery. Objective - Vital Signs/Intake and Output Vital Signs (last 24 hours): Temp Pulse Resp BP Pulse Ox 97.6 F 90 18 115/89 95 12/08/16 19:15 12/09/16 08:13 12/09/16 08:13 12/09/16 08:13 12/09/16 08:13 Intake and Output: 12/09/16 12/09/16 06:59 18:59 Intake Total 360 Output Total 25 Balance 335 - Medications Medications: Current Medications Aspirin (Aspirin Chewable) 81 mg PO DAILY [facility] Last Admin: 12/09/16 09:48 Dose: 81 mg Atenolol (Tenormin) 12.5 mg PO BID [facility] Last Admin: 12/09/16 11:00 Dose: Not Given Calcium Acetate (Phoslo) 667 mg PO WM [facility] Last Admin: 12/09/16 12:11 Dose: 667 mg Cholecalciferol (Vitamin D) 2,000 iu PO DAILY [facility] Last Admin: 12/09/16 09:45 Dose: 2,000 iu Clonazepam (Klonopin) 4 mg PO [facility] PRN Reason: Protocol Home Med (Home Med) 1 unit PO DAILY [facility] Last Admin: 12/09/16 09:47 Dose: Not Given Levalbuterol HCl (Xopenex) 0.63 mg IH [id number] [facility] Stop: 01/23/17 23:00 Last Admin: 12/09/16 13:19 Dose: 0.63 mg Lorazepam (Ativan) 0.5 mg PO BID [facility] PRN Reason: Protocol Last Admin: 12/09/16 11:00 Dose: Not Given Mupirocin (Bactroban Ointment) 0.5 gm TOP TID [facility] Last Admin: 12/09/16 09:48 Dose: 1 appl Pantoprazole Sodium (Protonix Ec Tab) 40 mg PO 0630 [facility] Last Admin: 12/09/16 06:39 Dose: 40 mg Rivastigmine (Exelon Cap) 4.5 mg PO BID [facility] Last Admin: 12/09/16 11:00 Dose: Not Given Ropinirole HCl (Requip) 8 mg PO HS [facility] - Labs Labs: 12/09/16 07:30 12/09/16 07:30 PT 11.2 Seconds (9.9-11.8) 11/28/16 22:20 INR 1.04 (0.93-1.08) 11/28/16 22:20 APTT 24.6 Seconds (23.7-30.8) 11/28/16 22:20 - Constitutional Appears: Non-toxic, No Acute Distress - Head Exam Head Exam: NORMAL INSPECTION - Neck Exam Neck Exam: absent: Lymphadenopathy, Meningismus - Respiratory Exam Respiratory Exam: Decreased Breath Sounds Additional comments: right anterior chest wall HD catheter site intact and non-tender - Cardiovascular Exam Cardiovascular Exam: +S1, +S2 - GI/Abdominal Exam GI & Abdominal Exam: Soft. absent: Tenderness Additional comments: colostomy in place - Extremities Exam Additional comments: right arm PICC line site clean and non-tender Assessment and Plan - Assessment and Plan (Free Text) Plan: Assessment acute respiratory failure due to fluid overload from CHF and volume overload from acute on chronic renal failure, slowly improving Cardiac arrhythmia and atrial fibrillation S/P pacemaker placement and development of left sided pneumothorax rectovesical fistula with inadequate drainage of urine and stool S/P loop colostomy VRE in the urine probably colonization chronic CHF Parkinson's disease history of breast cancer history of rectovesical and rectovaginal fistula Plan continue to monitor off antibiotics since she is at risk for healthcare- associated infections Overall prognosis is poor
[2016-12-10] MEDS: Levalbuterol 0.63 MG/3 ML Inhal Soln UD IH SCH ×4 (02:00→20:01)
--- NOTE | 2016-12-10 02:04 | PN ---
DATE: 12/09/2016 NEPHROLOGY FOLLOWUP NOTE An 81-year-old female with past medical history of hypertension, CHF with systolic dysfunction, CKD s tage II-IIIA, , rectovaginal fistula, now status post diverting colostomy, admitted with letharg y, found to have acute hypercapnic respiratory failure and persistent acute renal failure. Nephrolog y is following for the same. Per patient's family, she is a lot more alert today, ate breakfast earlier in the day. The patient d enies any complaints, denies being short of breath. PHYSICAL EXAMINATION: VITAL SIGNS: This morning, blood pressure 115/89, heart rate 90, respirations 18, O2 sat 95%. GENERAL: In no distress, responding appropriately to conversation. HEENT: Moist mucous membranes. Elevated JVD. Nonicteric. CHEST: Poor air movement bilaterally. No rhonchi, no rales, no wheezes. HEART: Systolic murmur present, regular rate and rhythm. GASTROINTESTINAL: Abdomen soft, nontender, nondistended. GENITOURINARY: No bladder distention. EXTREMITIES: Moderately edematous, proximal legs, improved. SKIN: Warm, no cyanosis. PSYCHIATRIC: Somewhat depressed affect. LABORATORY DATA THIS MORNING: CBC: WBC 8.7, hemoglobin 10.4, hematocrit 33.4, platelets 132. Chemi stry: Sodium 136, potassium 3.9, chloride 101, bicarbonate 28, BUN 31, creatinine 2.6, glucose 75, c alcium 7.8, phosphorus 4.5, albumin 2.6. ASSESSMENT: 1. Acute renal failure, acute kidney injury/chronic kidney disease secondary to acute tubular necros is with superimposed cardiorenal syndrome, anuric renal failure, now receiving hemodialysis 3-4 times per week, tolerating hemodialysis and ultrafiltration well. The patient will continue to need to chicas ve volume removed in order to maintain hemodynamic s status in the setting of congestive heart failur e and anuric renal failure. 2. Acute decompensated congestive heart failure, hemodynamically much improved. After initiating he modialysis, edema is also improving. Goal is to keep euvolemic with ultrafiltration on hemodialysis. Continue as mentioned above. 3. Hyperkalemia, resolved. Being managed with hemodialysis. 4. Hypercapnic respiratory failure. The patient with persistently-elevated pCO2 secondary to poor e ffort of breathing, although appears to have good tidal volume when placed on BiPAP. 5. Mental status and lethargy, much improved with BiPAP. Continue BiPAP indefinitely until the franklyn ent can achieve adequate ventilation on her own. 6. Atrial fibrillation, currently rate controlled on atenolol 12.5 mg b.i.d. Recommend to continue the same and avoid adding further agents, as this will cause hypotension. Wally Ash MD cc: [id number] TT: 12/10/2016 01:30:45 Confirmation # [id number] Dictation # [id number]
[2016-12-10] MEDS: Pantoprazole 40 mg EC Tab PO SCH (05:30)
[2016-12-10 07:40] LABS: ADD MANUAL DIFF? NO
[2016-12-10 08:00] LABS: BASO # 0.02 K/mm3 (0.0-2.0); BASO % 0.2 % (0.0-3.0); EOS # 0.3 (0.0-0.7); EOS % 2.4 % (1.5-5.0); GRAN % 73.2 % (50.0-68.0); HEMATOCRIT 34.3 % (36.0-48.0); LYMPH # 1.6 (1.2-3.4); LYMPH % 15.2 % (22.0-35.0); MEAN CELL VOLUME 98.6 fL (80.0-105.0); MEAN CORPUSCULAR HGB CONC 31.5 g/dl (31.0-37.0); MEAN PLATELET VOLUME 12.3 fl (7.0-11.0); PLATELET COUNT 132 10^3/uL (120.0-450.0); RED CELL DISTRIBUTION WIDTH 18.1 % (11.5-14.5); WHITE BLOOD COUNT 10.5 10^3/ul (4.5-11.0)
[2016-12-10 08:02] LABS: ALB/GLOB RATIO 0.8 (1.1-1.8); BILIRUBIN,DIRECT 0.5 mg/dL (0.0-0.4); BILIRUBIN,TOTAL 0.5 mg/dL (0.2-1.3); CALCIUM 8.2 mg/dL (8.4-10.5); PHOSPHOROUS 5.5 mg/dL (2.5-4.5); POTASSIUM 4.4 mmol/L (3.6-5.0); TOTAL PROTEIN 6.2 g/dL (5.8-8.3)
[2016-12-10] MEDS: SELENIUM 200 MCG PO SCH (13:18)
--- NOTE | 2016-12-10 13:34 | DS ---
The patient is to be discharged on 12/10/2016. According to the nurses and social media marketing specialist evaluation, patient will be discharged to [facility]. The patient is seen lying in the bed with BiPAP on. The patient's son is at bedside. The patient is arousable, but lethargic. PHYSICAL EXAMINATION: VITAL SIGNS: T-max afebrile, heart rate 68-90, blood pressure 128/79, 138/60, 127/60, respirations 18, O2 sat is 100% on BiPAP. HEAD: Normocephalic, atraumatic. HEENT: Shows pinkish conjunctivae, anicteric sclerae. No oropharyngeal lesion. NECK: Soft carotid bruit. CHEST: Kyphosis. Positive left upper chest pacemaker. Positive right internal jugular dialysis catheter. Positive kyphosis. Questionable decreased breath sounds at the left base. No rales, crackles, or wheezing. CARDIOVASCULAR: Shows S1, S2, regular rhythm, positive systolic murmur left sternal border, right second intercostal space. ABDOMEN: Soft. Positive colostomy in the right side. GENITALIA: Female. RECTAL: Deferred. Positive Ramirez catheter. EXTREMITIES: Lower extremities shows positive ADRIANO stockings. No pitting edema , trace swelling. Positive right upper extremity PICC line. Positive decreased swelling of the upper extremity swelling of bilateral upper extremities. GAIT: Could not be tested. The patient is bedridden. NEUROLOGIC: Limited. The patient's psychiatric examination is positive for history of dementia, Parkinson's disease, anxiety, depression. DIAGNOSTICS: On 12/10, WBC 10.5, hemoglobin/hematocrit 10.8 and 34.3, platelets 132. Granulocytes 73. Sodium 135, potassium 4.4, chloride 100, CO2 of 26, anion gap 13, BUN 46, creatinine 3.4, GFR 16, glucose 79, calcium 8.2, phosphorus 5.5, alk phos 185, albumin 2.8. IMPRESSION AND PLAN: 1. Acute renal failure and acute kidney injury. 2. Questionable and possible end-stage renal disease, at present hemodialysis requiring 3 times a week through right internal jugular dialysis catheter, underlying chronic kidney disease stage IV. 3. Acute tubular necrosis. 4. Cardiorenal syndrome. 5. Anuric renal failure. 6. Status post hemodialysis and ultrafiltration 3 times a week. 7. Transient hypotension. 8. Lethargy. 9. Severe deconditioning and gait dysfunction and bedridden status. 10. Functional quadriplegia. 11. Leukocytosis with granulocytosis. 12. Normocytic anemia, status post packed red blood cell transfusion. 13. Metabolic acidosis. 14. Acute on chronic hypercapneic, hypercarbic respiratory failure. 15. BiPAP dependent and requiring hypercapneic and hypercarbic respiratory failure. 16. Hyperphosphatemia. 17. Hypocalcemia. 18. Protein malnutrition. 19. Hypoalbuminemia. 20. Hyperprocalcitoninemia. 21. Non-hemolyzed hyperkalemia. 22. Vancomycin-resistant Enterococcus faecium, questionable urinary tract infection and funguria with proteinuria, microscopic hematuria, pyuria, bacteriuria and funguria. 23. Status post right internal jugular dialysis catheter placement. 24. Status post right upper extremity peripherally inserted central catheter line placement. 25. Status post left upper chest permanent pacemaker placement. 26. Post permanent pacemaker, left apical pneumothorax, status post pigtail chest tube placement. 27. Left ventricular ejection fraction of 40%. 28. Moderately impaired left ventricular systolic function with septal hypokinesis. 29. Moderate to severe aortic valve sclerosis with moderate marked aortic regurgitation. 30. Severe mitral regurgitation with moderately thickened mitral valve. 31. Moderate pulmonary hypertension. 32. Bilateral pleural effusion, left more than the right. 33. Status post volume overload. 34. Atrial fibrillation with rapid ventricular response and slow ventricular response with long pauses and periods of asystole. 35. History of rectal colovesicular and vaginal fistula. 36. History of Parkinson's disease, dementia, anxiety, depression and hypovitaminosis D. 1. Acute renal failure, acute kidney injury. 2. Questionable and possible end-stage renal disease, at present hemodialysis requiring. 3. Underlying chronic kidney disease stage IV. 4. Acute tubular necrosis. 5. Cardiorenal syndrome. 6. Anuric renal failure. 7. Status post hemodialysis and ultrafiltration. 8. Transient hypotension. 9. Metabolic acidosis. 10. Non-hemolyzed hyperkalemia. 11. Chronic hypercapnic respiratory failure, intermittent BiPAP and oxygen requiring. 12. Atrial fibrillation with rapid ventricular response and slow ventricular response. 13. Hypoxemia. 14. Leukocytosis with granulocytosis. 15. Normocytic anemia. 16. Status post packed red blood cell transfusion. 17. Granulocytosis. 18. Hypoalbuminemia. 19. Hyperphosphatemia. 20. Vancomycin-resistant Enterococcus faecium urinary tract infection versus contamination and funguria and proteinuria and microscopic hematuria, pyuria, bacteriuria. 21. Status post packed red blood cell transfusion x 1. 22. Severe deconditioning. 23. Gait dysfunction. 24. Severe gait dysfunction and bedridden status. 25. Possible functional quadriplegia. 26. Severe deconditioning. 1. Questionable and possible end-stage renal disease, hemodialysis dependent. 2. Acute renal failure with underlying chronic kidney disease, stage III. 3. Acute kidney injury. 4. Acute tubular necrosis. 5. Cardiorenal syndrome. 6. Episodic hypotension. 7. Anuric renal failure. 8. Non-hemolyzed hyperkalemia. 9. Mitral regurgitation. 10. Hypercapnic respiratory failure with hypercarbia and hypercapnia. 11. Atrial fibrillation with rapid and slow ventricular response with long pauses and periods of ____ asystole. 12. Status post permanent pacemaker implant. 13. Post permanent pacemaker left apical pneumothorax. 14. Status post left-sided chest tube placement for pneumothorax. 15. Status post loop colostomy. 16. Vancomycin-resistant enterococcus colonization. 17. Severe deconditioning and gait dysfunction, bedridden status and functional quadriplegia. 18. Episodic hypotension. 19. Episodic hypoxemia. 20. Normocytic anemia, status post packed red blood cell transfusion. 21. Granulocytosis. 22. Status post non-hemolyzed hyperkalemia. 23. Hypoalbuminemia. 24. Severe deconditioning. 1. Acute renal failure and acute kidney injury. 2. Acute tubular necrosis. 3. Cardiorenal syndrome. 4. Volume overload with anasarca. 5. Bilateral upper and lower extremity pitting edema and stranding (resolving) 6. Vancomycin-resistant Enterococcus faecium urinary tract infection and funguria. 7. Acute blood loss anemia, etiology undetermined. 8. Status post packed red blood cell transfusion. 9. Acute hypercapnic, hypercarbic respiratory failure. 10. Severe deconditioning and gait dysfunction with bedridden status and possible functional quadriplegia. 11. History of dementia, history of Parkinson disease, history of anxiety, depression. 12. Kyphosis of the spine. 13. Bilateral pleural effusion, left more than the right. 14. Status post ultrasound guided left thoracentesis with removal of 700 mL of pleural fluid with decreasing bilateral pleural effusion. 15. Cardiomegaly. 16. Atrial fibrillation with rapid ventricular response and slow ventricular response with long pauses and periods of asystole. 17. Status post permanent pacemaker implant. 18. Left apical pneumothorax, post pacemaker implant. 19. Poor intravenous access. 20. Status post right upper extremity peripherally inserted central catheter line. 21. History of colovesical, colovaginal fistula. 22. Status post loop colostomy. 22. Cardiorenal syndrome. 1. Hypotension with periods and episodic transient hypertension. 2. Hypoxemia. 3. Leukocytosis with granulocytosis. 4. Decreasing hemoglobin and hematocrit with normocytic anemia. 5. Granulocytosis. 6. Acute hypercapneic, hypercarbic respiratory failure. 7. Metabolic acidosis and non-hemolyzed hyperkalemia. 8. Acute renal failure, acute kidney injury and acute tubular necrosis. 9. Cardiorenal syndrome. 10. Transaminitis. 11. Hypoalbuminemia. 12. Hyperprocalcitonemia. 13. Vancomycin-resistant Enterococcus faecium urinary tract infection and funguria and proteinuria, hematuria, pyuria, bacteriuria and funguria. 14. Status post right upper extremity peripherally inserted central catheter line placement. 15. Right internal jugular dialysis catheter placement. 16. Status post ultrasound-guided left thoracentesis, removal of 700 mL of fluid. 17. Acute renal failure, acute kidney injury and chronic kidney disease stage IV. 18. Acute tubular necrosis. 19. Cardiorenal syndrome. 20. Status post hemodialysis. 21. Status post hemodialysis and ultrafiltration. 22. Volume overload and third spacing. 23. Atrial fibrillation with rapid ventricular response and slow ventricular response with long pauses and asystole. 24. Persistent leukocytosis. 25. Status post left upper chest permanent pacemaker implant. 26. Post-pacemaker implant left apical pneumothorax. 27. History of rectovesical, rectovaginal fistula, status post loop colostomy. 28. Questionable left upper lobe healthcare-associated pneumonia. 29. Bilateral pleural effusion. 30. Hypoxemia. 31. History of anxiety, depression, dementia, Parkinson disease. 32. Hyperphosphatemia. 33. Hypovitaminosis D. 1. Acute renal failure, acute kidney injury with nonhemolyzed hyperkalemia and acute tubular necrosis. 2. Status post hemodialysis. 3. Status post right internal jugular [place] and dialysis catheter placement. 4. Status post ultrasound guided left thoracentesis with removal of 700 mL of pleural fluid. 5. Hypertension. 6. Hypoxemia. 7. Acute hypercarbic hypercapnic BiPAP-requiring respiratory failure. 8. Left upper lobe healthcare-associated pneumonia. 9. Bilateral pleural effusion with improvement. 10. Cardiomegaly. 11. Status post left-sided permanent pacemaker implant. 12. Severe deconditioning. 13. Vancomycin-resistant Enterococcus faecium urinary tract infection and funguria. 14. Leukocytosis with granulocytosis. 15. Non-hemolyzed hyperkalemia. 16. Hyperphosphatemia. 17. Transaminitis. 18. Hyperprocalcitoninemia. 19. Vancomycin-resistant Enterococcus faecium urinary tract infection and funguria with proteinuria, hematuria, pyuria, and bacteriuria. 20. Severe deconditioning, gait dysfunction and bedridden status. 21. Possible functional quadriplegia. 22. Encephalopathy. 23. New left upper lobe healthcare-associated pneumonia. 24. Fluid and volume overload. 25. Atrial fibrillation with rapid ventricular response and slow ventricular response with long pauses and periods of asystole. 26. Status post left upper chest permanent pacemaker implant. 27. Oliguric/anuric renal failure with acute tubular necrosis with cardiorenal syndrome. 28. Episodic hypotension. 29. Systemic inflammatory response syndrome with hyperprocalcitoninemia. 30. Non-hemolyzed hyperkalemia. 31. Bilateral lower extremity venous stasis. 32. History of anxiety, depression, dementia, Parkinson's disease. 33. Hyperphosphatemia. 34. Hypovitaminosis D. 1. Worsening acute renal failure with recurrent refractory non-hemolyzed hyperkalemia. 2. Persistent refractory leukocytosis with granulocytosis. 3. Normocytic anemia. 4. Metabolic acidosis with hypercarbia and acute hypercarbic hypercapnic respiratory failure. 5. Underlying chronic kidney disease stage IV. 6. Hyperphosphatemia. 7. Transaminitis. 8. Hypoalbuminemia. 9. Vancomycin-resistant Enterococcus faecium and yeast species questionable urinary tract infection with proteinuria, hematuria, pyuria, bacteriuria, funguria. 10. Status post ultrasound-guided left thoracentesis with drainage of 700 mL of pleural fluid. 11. Left upper lobe patchy new infiltrate. 12. Decreasing bilateral pleural effusion with cardiomegaly. 13. Status post permanent pacemaker implant. 14. Post-pacemaker left apical pneumothorax. 15. Hypercarbic respiratory failure. 16. Status post loop colostomy with removal of the ostomy bridge. 17. Transient hypotension. 18. Acute renal failure, acute kidney injury with underlying chronic kidney disease with acute tubular necrosis with granular casts in the urine. 19. Possible cardiorenal syndrome. 20. Non-gap metabolic acidosis. 21. History of atrial fibrillation with rapid ventricular response and slow ventricular response with periods of asystole and long pauses. 22. Acute hypercapnic respiratory failure secondary to volume overload. 23. Status post left apical pneumothorax. 24. History of rectovesical, rectovaginal fistula. 25. Parkinson's disease. 26. History of dementia, history of atrial fibrillation, history of systolic congestive heart failure. 1. Acute renal failure with worsening and decreasing urine output. 2. Volume overload with anasarca and bilateral pleural effusions. 3. Lethargy. 4. Transient hypotension. 5. History of hypertension. 6. Leukocytosis with granulocytosis. 7. Macrocytic anemia. 8. Hypercarbic and hypercapnic respiratory failure. 9. Non-hemolyzed hyperkalemia. 10. Acute renal failure, acute kidney injury with underlying chronic kidney disease stage IV/V. 11. Hyperphosphatemia. 12. Elevated alkaline phosphatase. 13. Hypoalbuminemia. 14. Vancomycin-resistant Enterococcus faecium urinary tract infection and funguria and gram-positive cocci urinary tract infection. 15. Severe gait dysfunction and bedridden status and severe deconditioning. 16. Functional quadriplegia. 17. Bilateral pleural effusion with bibasilar atelectasis and cardiomegaly. 18. Possible hepatic cirrhosis with perihepatic, perisplenic ascites and extensive anasarca with third spacing and volume overload. 19. Status post colostomy. 20. Bibasilar atelectasis. 21. Status post right upper extremity peripherally inserted central catheter line placement. 22. History of dementia. 23. Left ventricular ejection fraction of 40% with moderately impaired left ventricular systolic function and septal hypokinesis. 24. Moderate to severely sclerotic aortic valve with moderate aortic regurgitation. 25. Severe mitral regurgitation with moderately thickened mitral valve. 26. Moderate pulmonary arterial hypertension. 27. Bilateral pleural effusion, left more than the right. 28. Status post permanent pacemaker. 29. Severe deconditioning. 30. Acute tubular necrosis. 31. History of dementia. 32. History of paroxysmal atrial fibrillation with rapid ventricular response and slow ventricular response with long pauses and periods of asystole. 33. History of dementia, Parkinson disease, anxiety, depression. 34. Status post permanent pacemaker implant. 35. Post permanent pacemaker left apical pneumothorax. 36. Hypothermia. 37. Systemic inflammatory response syndrome. 38. Deconditioning. 39. History of anxiety disorder. 40. Non-hemolyzed hyperkalemia. 41. Hyperphosphatemia. 42. Hypovitaminosis D. 1. Recurrent acute renal failure. 2. Recurrent non-hemolyzed hyperkalemia. 3. Status post right upper extremity peripherally-inserted central catheter line placement for poor intravenous access. 4. Vancomycin-resistant enterococcus urinary tract infection and funguria. 5. Systemic inflammatory response syndrome. 6. Acute renal failure with underlying chronic kidney disease stage III/IV. 7. Acute tubular necrosis. 8. Non-hemolyzed hyperkalemia. 9. Third spacing with volume and fluid overload with bilateral pleural effusion and anasarca. 10. Hypercapnic respiratory failure. 11. Leukocytosis with granulocytosis. 12. Normocytic anemia. 13. Non-hemolyzed hyperkalemia. 14. Hyperphosphatemia. 15. Hypoalbuminemia. 16. Funguria. 17. Vancomycin-resistant Enterococcus faecalis faecium, enterococcus faecium urinary tract infection and funguria with proteinuria, hematuria, pyuria, bacteriuria, and funguria. 18. Bilateral pleural effusion with bibasilar atelectasis and cardiomegaly. 19. Questionable and possible cirrhosis with perihepatic and perisplenic ascites with anasarca and third spacing. 20. Right-sided colostomy. 21. Severe deconditioning, gait dysfunction, bedridden status, and functional quadriplegia. 22. Cerebral cortical atrophy of the brain. 23. Microvascular ischemic disease of the brain. 24. Chronic lacunar infarcts and encephalomalacia. 25. Left ventricular ejection fraction of 40% with moderately impaired left ventricular systolic function and septal hypokinesis. 26. Moderate to severely sclerotic aortic valve and moderate aortic regurgitation. 27. Severe mitral regurgitation with moderately thickened mitral valve. 28. Moderate pulmonary hypertension. 29. Large left pleural effusion. 30. 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 31. Post permanent pacemaker implant, left apical pneumothorax. 1. Acute renal failure with worsening underlying chronic kidney disease. 2. Non-hemolyzed hyperkalemia. 3. Hyperphosphatemia. 4. Hypocalcemia. 5. Transaminitis. 6. Elevated lipase, etiology undetermined. 7. Leukocytosis with granulocytosis and normocytic anemia. 8. Macrocytic anemia. 9. Gram-positive cocci urinary tract infection with proteinuria, microscopic hematuria, pyuria, funguria. 10. Gram-positive cocci urinary tract infection. 11. Bilateral pleural effusion with bibasilar compressive atelectasis. 12. Cardiomegaly. 13. Questionable cirrhosis with irregularities of the hepatic margin and perihepatic and perisplenic ascites and extensive anasarca with third spacing. 14. Right-sided colostomy. 15. Severe gait dysfunction and deconditioning and bedridden status. 16. Possible functional quadriplegia. 17. Left ventricular ejection fraction of 40% with concentric left ventricular hypertrophy. 18. Moderately impaired left ventricular systolic function with left ventricular ejection fraction of 40%. 19. Moderately impaired left ventricular systolic function. 20. Moderate to severe aortic valve sclerosis and moderate aortic regurgitation. 21. Severe mitral regurgitation with moderately thickened mitral valve. 22. Moderate pulmonary arterial hypertension. 23. Septal hypokinesis. 24. Moderate aortic regurgitation. 25. Large pleural effusion. 26. Bilateral upper extremity swelling. 27. Poor intravenous access. 28. Cerebral cortical atrophy of the brain with small vessel ischemic disease of the brain and chronic lacunar infarcts and encephalomalacia. 29. Moderately impaired left ventricular systolic function with elevated BNP and systolic congestive heart failure with elevated BNP of 26,000. 30. Macrocytic anemia. 31. Status post non-hemolyzed hyperkalemia. 32. Gram-positive cocci urinary tract infection. 33. History of dementia, Parkinson disease, history of paroxysmal atrial fibrillation with multiple pauses and periods of asystole. 34. Status post permanent pacemaker implant and status post permanent pacemaker implant, left apical pneumothorax. 35. Systemic inflammatory response syndrome. 36. Volume overload with third spacing. 37. Severely debilitated, deconditioning. 38. hyperkalemia. 39. Systemic inflammatory response syndrome. 40. Status post colostomy. 41. History of rectovaginal, rectovesical fistula. 42. History of anxiety disorder, history of dementia, history of Parkinson disease and hypovitaminosis D. 1. Questionable and possible sepsis versus systemic inflammatory response syndrome with hypothermia. 2. Hypotension. 3. Questionable and possible septic shock. 4. Non-hemolyzed hyperkalemia. 5. Acute renal failure with underlying chronic kidney disease. 6. Possible urinary tract infection with pyuria, bacteriuria, proteinuria, hematuria and funguria. 7. Transaminitis. 8. Malnutrition. 9. History of colovesical, colovaginal fistula. 10. History of recurrent sepsis and recurrent urinary tract infection. 11. History of Parkinson's disease, dementia, history of severe gait dysfunction, history of sick sinus syndrome with tachybrady syndrome, history of atrial fibrillation with rapid ventricular response and slow ventricular response with long pauses and periods of asystole. 12. Status post pacemaker implant. 13. History of severe gait dysfunction. 14. Severe deconditioning. 15. Severe gait dysfunction with possible functional quadriplegia. 16. Hypotension. 17. Hyperkalemia. 18. Severe gait dysfunction. 19. Poor intravenous access. 20. Small vessel ischemic disease of the brain. 21. Cerebral cortical atrophy of the brain. 22. Poor intravenous access. CURRENT MEDICATIONS: 1. Aspirin 81 mg daily. 2. Ativan 0.5 mg twice a day. 3. Bactroban cream to the affected area 3 times a day. 4. Exelon capsule 4.5 mg twice a day. 5. Selenium 200 mcg p.o. daily. 6. Klonopin 4 mg at bedtime, to be held for sedation. 7. PhosLo 667 mg with meals. 8. Protonix 40 mg daily. 9. Requip 8 mg at bedtime. 10. Tenormin 12.5 mg twice a day. 11. Vitamin D3 2000 units daily. 12. Xopenex 0.63 mg nebulizer every 6 hours. 13. The patient is on BiPAP with 14/650% FiO2, rate of 18 continuous. The patient has been ordered out of bed, ADRIANO stockings, SCDs, physical therapy, occupational therapy all ordered. The patient seen by physical therapy. The patient has not been able to do physical therapy during this hospitalization due to her severely deconditioned state. At present, patient will be discharged to [facility]. At present, patient is to be discharged home on above medications, which I dictated including: Tenormin 12.5 twice a day, aspirin 81 mg daily, PhosLo 667 mg with meals, vitamin D3 2000 units daily, Klonopin 4 mg at bedtime, hold for sedation. The patient is on Xopenex nebulizer 0.63 mg every 6 hours, Ativan 0.5 mg twice a day, hold for sedation, Bactroban cream to the nasal bridge area , Protonix 40 mg daily, Exelon capsule 4.5 mg twice a day, Requip 8 mg at bedtime, aspirin 81 mg daily, selenium 200 mcg daily. At present, patient has been off all IV medications. As per nephrology, patient will require dialysis 3 times a week at present. I have met with the patient's son today. I have explained to the patient's son about patient's overall extremely guarded to extremely poor prognosis. I have also advised the patient's son to consider long-term placement versus 24-hour care and supervision if the family wants to take the patient home. All of the above was explained to the patient's son in layman's language. All questions and concerns answered. Time spent in the entire discharge process, more than 45 minutes. Dictated and electronically signed, not read. Rigo Vargas MD cc: [id number] TT: 12/10/2016 13:33:14 angela [email or web address]
--- NOTE | 2016-12-10 23:05 | CP.PCM.PN ---
Subjective - Date & Time of Evaluation Date of Evaluation: 12/10/16 Time of Evaluation: 11:00 - Subjective Subjective: Patient denies complaints; Objective - Vital Signs/Intake and Output Vital Signs (last 24 hours): Temp Pulse Resp BP Pulse Ox 97 F L 62 18 93/49 L 100 12/10/16 08:00 12/10/16 17:46 12/10/16 08:00 12/10/16 17:46 12/10/16 08:00 Intake and Output: 12/10/16 12/11/16 18:59 06:59 Intake Total 240 120 Output Total 300 Balance -60 120 - Medications Medications: Current Medications Aspirin (Aspirin Chewable) 81 mg PO DAILY [facility] Last Admin: 12/10/16 11:32 Dose: 81 mg Atenolol (Tenormin) 12.5 mg PO BID [facility] Last Admin: 12/10/16 17:46 Dose: Not Given Calcium Acetate (Phoslo) 667 mg PO WM [facility] Last Admin: 12/10/16 17:58 Dose: 667 mg Cholecalciferol (Vitamin D) 2,000 iu PO DAILY [facility] Last Admin: 12/10/16 11:30 Dose: 2,000 iu Clonazepam (Klonopin) 4 mg PO [facility] PRN Reason: Protocol Last Admin: 12/09/16 22:15 Dose: 4 mg Home Med (Home Med) 1 unit PO DAILY [facility] Last Admin: 12/10/16 13:18 Dose: Not Given Levalbuterol HCl (Xopenex) 0.63 mg IH [id number] [facility] Stop: 01/23/17 23:00 Last Admin: 12/10/16 20:01 Dose: 0.63 mg Lorazepam (Ativan) 0.5 mg PO BID [facility] PRN Reason: Protocol Last Admin: 12/10/16 17:45 Dose: Not Given Mupirocin (Bactroban Ointment) 0.5 gm TOP TID [facility] Last Admin: 12/10/16 17:45 Dose: 1 appl Pantoprazole Sodium (Protonix Ec Tab) 40 mg PO 0630 [facility] Last Admin: 12/10/16 05:30 Dose: 40 mg Rivastigmine (Exelon Cap) 4.5 mg PO BID [facility] Last Admin: 12/10/16 17:45 Dose: Not Given Ropinirole HCl (Requip) 8 mg PO [facility] Last Admin: 12/09/16 22:15 Dose: 8 mg - Labs Labs: 12/10/16 07:00 12/10/16 05:00 PT 11.2 Seconds (9.9-11.8) 11/28/16 22:20 INR 1.04 (0.93-1.08) 11/28/16 22:20 APTT 24.6 Seconds (23.7-30.8) 11/28/16 22:20 - Constitutional Appears: Non-toxic, No Acute Distress - Eye Exam Eye Exam: Normal appearance - ENT Exam ENT Exam: Mucous Membranes Moist - Respiratory Exam Respiratory Exam: absent: Respiratory Distress - Cardiovascular Exam Cardiovascular Exam: Murmur - GI/Abdominal Exam GI & Abdominal Exam: Soft - Exam Additional comments: power in place; - Extremities Exam Additional comments: edematous - Neurological Exam Neurological Exam: Alert, Awake Assessment and Plan (1) Acute renal failure Assessment & Plan: MARCIANO on CKD; initiated on HD; will f/u as outpatient; Status: Acute (2) Acute hypercapnic respiratory failure Assessment & Plan: May need bipap prn; Status: Acute (3) SIRS (systemic inflammatory response syndrome) Status: Acute (4) HTN (hypertension) Status: Acute (5) Hyperkalemia Status: Resolved (6) Atrial fibrillation Status: Acute
--- NOTE | 2016-12-10 23:40 | CP.PCM.PN ---
Subjective - Date & Time of Evaluation Date of Evaluation: 12/10/16 Time of Evaluation: 09:20 - Subjective Subjective: Comfortable in bed, not in distress, somewhat sleepy today. Objective - Vital Signs/Intake and Output Vital Signs (last 24 hours): Temp Pulse Resp BP Pulse Ox 97 F L 62 18 93/49 L 100 12/10/16 08:00 12/10/16 17:46 12/10/16 08:00 12/10/16 17:46 12/10/16 08:00 Intake and Output: 12/10/16 12/11/16 18:59 06:59 Intake Total 240 120 Output Total 300 Balance -60 120 - Medications Medications: Current Medications Aspirin (Aspirin Chewable) 81 mg PO DAILY [facility] Last Admin: 12/10/16 11:32 Dose: 81 mg Atenolol (Tenormin) 12.5 mg PO BID [facility] Last Admin: 12/10/16 17:46 Dose: Not Given Calcium Acetate (Phoslo) 667 mg PO WM [facility] Last Admin: 12/10/16 17:58 Dose: 667 mg Cholecalciferol (Vitamin D) 2,000 iu PO DAILY [facility] Last Admin: 12/10/16 11:30 Dose: 2,000 iu Clonazepam (Klonopin) 4 mg PO HS [facility] PRN Reason: Protocol Last Admin: 12/09/16 22:15 Dose: 4 mg Home Med (Home Med) 1 unit PO DAILY [facility] Last Admin: 12/10/16 13:18 Dose: Not Given Levalbuterol HCl (Xopenex) 0.63 mg IH [id number] [facility] Stop: 01/23/17 23:00 Last Admin: 12/10/16 20:01 Dose: 0.63 mg Lorazepam (Ativan) 0.5 mg PO BID [facility] PRN Reason: Protocol Last Admin: 12/10/16 17:45 Dose: Not Given Mupirocin (Bactroban Ointment) 0.5 gm TOP TID [facility] Last Admin: 12/10/16 17:45 Dose: 1 appl Pantoprazole Sodium (Protonix Ec Tab) 40 mg PO 0630 [facility] Last Admin: 12/10/16 05:30 Dose: 40 mg Rivastigmine (Exelon Cap) 4.5 mg PO BID [facility] Last Admin: 12/10/16 17:45 Dose: Not Given Ropinirole HCl (Requip) 8 mg PO HS [facility] Last Admin: 12/09/16 22:15 Dose: 8 mg - Labs Labs: 12/10/16 07:00 12/10/16 05:00 PT 11.2 Seconds (9.9-11.8) 11/28/16 22:20 INR 1.04 (0.93-1.08) 11/28/16 22:20 APTT 24.6 Seconds (23.7-30.8) 11/28/16 22:20 - Constitutional Appears: Non-toxic, No Acute Distress - Head Exam Head Exam: NORMAL INSPECTION - ENT Exam ENT Exam: Mucous Membranes Moist - Neck Exam Neck Exam: absent: Lymphadenopathy, Meningismus - Respiratory Exam Respiratory Exam: Decreased Breath Sounds Additional comments: right anterior chest wall HD catheter site clean and non-tender - Cardiovascular Exam Cardiovascular Exam: +S1, +S2 - GI/Abdominal Exam GI & Abdominal Exam: Soft. 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
--- NOTE | 2016-12-11 15:05 | DS ---
The patient is seen in room 562, bed 2. The patient's is outside the room. The patient is lying in the bed. The patient is off the oxygen. The patient is off BiPAP. The patient is off Ventimask. The patient is lying in the bed. The patient is much more awake, alert, responsive today as compared to yesterday. The patient does not appear to be in any distress. PHYSICAL EXAMINATION: VITAL SIGNS: Could not be accessed because [employer] system is down. I have spoken to the nurses on the floor on 5R. There was no adverse event noted according to the nurses. HEAD: Normocephalic, atraumatic. HEENT: Shows positive dry scab of the nasal bridge. Pinkish, pale conjunctivae , anicteric sclerae. No oropharyngeal lesion. NECK: Soft carotid bruit. CHEST: Kyphosis. LUNGS: Show questionable decreased breath sound at the left base. Positive left upper chest pacemaker. Positive right neck internal jugular dialysis catheter. CARDIOVASCULAR: Shows S1, S2, regular rhythm. Positive systolic murmur left sternal border, left second intercostal space, right second intercostal space. ABDOMEN: Soft, slightly protuberant, positive colostomy on the right side. GENITALIA: Female. Positive Ramirez catheter. EXTREMITIES: Right upper extremity PICC line noted. Complete resolution of the pitting edema of the lower extremity. Complete resolution of the pitting edema of the upper extremity. ADRIANO stockings are missing from the lower extremity. MUSCULOSKELETAL: Shows decreased muscle mass. The patient is chronically debilitated, bedridden patient. DIAGNOSTICS: Could not been reviewed because the computer system is down today. The patient's discharge to [facility] was canceled yesterday due to some logistic issue with availability of the bed and the dialysis slot. The patient is tentatively scheduled, according to the patient's spouse regarding the patient's discharge today, discharge to [facility] after dialysis at [place] today which the patient and the family are agreeable to for the discharge to [facility] with continuation of the dialysis. I have again met with the patient's spouse. I have also reiterated all the previous discussions with the family and the patient regarding overall patient' s decompensated status and overall very guarded to poor prognosis. All the above has been explained to the patient's son and the patient's spouse in layman 's language. All questions and concerns answered. I have also advised that the patient most likely will require 24-hour care and supervision whether at home or I have advised the patient's son and the spouse to explore the options of long-term fpc placement also. FINAL IMPRESSION, PLAN, AND DISCHARGE DIAGNOSES: 1. Acute renal failure, acute kidney injury, acute tubular necrosis. 2. Cardiorenal syndrome. 3. Questionable and possible end-stage renal disease, hemodialysis requiring at present. 4. Non-hemolyzed hyperkalemia. 5. Vancomycin-resistant Enterococcus faecium urinary tract infection and funguria versus contamination. 6. Volume overload. 7. Severe deconditioning and bedridden status. 8. Functional quadriplegia. 9. History of dementia, history of depression, history of anxiety, history of Parkinson's disease. 10. Atrial fibrillation with rapid ventricular response and slow ventricular response with long pauses and periods of asystole. 11. Status post permanent pacemaker implant. 12. Left apical pneumothorax, post permanent pacemaker implant. 13. Status post right internal jugular hemodialysis catheter placement. 14. Right upper extremity peripherally inserted central catheter line placement. 15. Colovesical, colovaginal and vesicular-rectovaginal fistula. 16. Status post loop colostomy. 17. Anuric renal failure. 18. Anemia. 19. Status post packed red blood cell transfusion. 20. Leukocytosis with granulocytosis. 21. Hyper-procalcitoninemia. 22. Hypovitaminosis D. 21. Questionable left upper lobe pneumonia. 22. Questionable left upper lobe healthcare-associated pneumonia. 23. History of Parkinson's disease, history of depression, history of anxiety, history of dementia. 24. Kyphosis of the thoracic spine. 25. Left ventricular ejection fraction around 40%. 26. Mitral regurgitation. 1. Acute renal failure and acute kidney injury. 2. Questionable and possible end-stage renal disease, at present hemodialysis requiring 3 times a week through right internal jugular dialysis catheter, underlying chronic kidney disease stage IV. 3. Acute tubular necrosis. 4. Cardiorenal syndrome. 5. Anuric renal failure. 6. Status post hemodialysis and ultrafiltration 3 times a week. 7. Transient hypotension. 8. Lethargy. 9. Severe deconditioning and gait dysfunction and bedridden status. 10. Functional quadriplegia. 11. Leukocytosis with granulocytosis. 12. Normocytic anemia, status post packed red blood cell transfusion. 13. Metabolic acidosis. 14. Acute on chronic hypercapneic, hypercarbic respiratory failure. 15. BiPAP dependent and requiring hypercapneic and hypercarbic respiratory failure. 16. Hyperphosphatemia. 17. Hypocalcemia. 18. Protein malnutrition. 19. Hypoalbuminemia. 20. Hyperprocalcitoninemia. 21. Non-hemolyzed hyperkalemia. 22. Vancomycin-resistant Enterococcus faecium, questionable urinary tract infection and funguria with proteinuria, microscopic hematuria, pyuria, bacteriuria and funguria. 23. Status post right internal jugular dialysis catheter placement. 24. Status post right upper extremity peripherally inserted central catheter line placement. 25. Status post left upper chest permanent pacemaker placement. 26. Post permanent pacemaker, left apical pneumothorax, status post pigtail chest tube placement. 27. Left ventricular ejection fraction of 40%. 28. Moderately impaired left ventricular systolic function with septal hypokinesis. 29. Moderate to severe aortic valve sclerosis with moderate marked aortic regurgitation. 30. Severe mitral regurgitation with moderately thickened mitral valve. 31. Moderate pulmonary hypertension. 32. Bilateral pleural effusion, left more than the right. 33. Status post volume overload. 34. Atrial fibrillation with rapid ventricular response and slow ventricular response with long pauses and periods of asystole. 35. History of rectal colovesicular and vaginal fistula. 36. History of Parkinson's disease, dementia, anxiety, depression and hypovitaminosis D. 1. Acute renal failure, acute kidney injury. 2. Questionable and possible end-stage renal disease, at present hemodialysis requiring. 3. Underlying chronic kidney disease stage IV. 4. Acute tubular necrosis. 5. Cardiorenal syndrome. 6. Anuric renal failure. 7. Status post hemodialysis and ultrafiltration. 8. Transient hypotension. 9. Metabolic acidosis. 10. Non-hemolyzed hyperkalemia. 11. Chronic hypercapnic respiratory failure, intermittent BiPAP and oxygen requiring. 12. Atrial fibrillation with rapid ventricular response and slow ventricular response. 13. Hypoxemia. 14. Leukocytosis with granulocytosis. 15. Normocytic anemia. 16. Status post packed red blood cell transfusion. 17. Granulocytosis. 18. Hypoalbuminemia. 19. Hyperphosphatemia. 20. Vancomycin-resistant Enterococcus faecium urinary tract infection versus contamination and funguria and proteinuria and microscopic hematuria, pyuria, bacteriuria. 21. Status post packed red blood cell transfusion x 1. 22. Severe deconditioning. 23. Gait dysfunction. 24. Severe gait dysfunction and bedridden status. 25. Possible functional quadriplegia. 26. Severe deconditioning. 1. Questionable and possible end-stage renal disease, hemodialysis dependent. 2. Acute renal failure with underlying chronic kidney disease, stage III. 3. Acute kidney injury. 4. Acute tubular necrosis. 5. Cardiorenal syndrome. 6. Episodic hypotension. 7. Anuric renal failure. 8. Non-hemolyzed hyperkalemia. 9. Mitral regurgitation. 10. Hypercapnic respiratory failure with hypercarbia and hypercapnia. 11. Atrial fibrillation with rapid and slow ventricular response with long pauses and periods of ____ asystole. 12. Status post permanent pacemaker implant. 13. Post permanent pacemaker left apical pneumothorax. 14. Status post left-sided chest tube placement for pneumothorax. 15. Status post loop colostomy. 16. Vancomycin-resistant enterococcus colonization. 17. Severe deconditioning and gait dysfunction, bedridden status and functional quadriplegia. 18. Episodic hypotension. 19. Episodic hypoxemia. 20. Normocytic anemia, status post packed red blood cell transfusion. 21. Granulocytosis. 22. Status post non-hemolyzed hyperkalemia. 23. Hypoalbuminemia. 24. Severe deconditioning. 1. Acute renal failure and acute kidney injury. 2. Acute tubular necrosis. 3. Cardiorenal syndrome. 4. Volume overload with anasarca. 5. Bilateral upper and lower extremity pitting edema and stranding (resolving) 6. Vancomycin-resistant Enterococcus faecium urinary tract infection and funguria. 7. Acute blood loss anemia, etiology undetermined. 8. Status post packed red blood cell transfusion. 9. Acute hypercapnic, hypercarbic respiratory failure. 10. Severe deconditioning and gait dysfunction with bedridden status and possible functional quadriplegia. 11. History of dementia, history of Parkinson disease, history of anxiety, depression. 12. Kyphosis of the spine. 13. Bilateral pleural effusion, left more than the right. 14. Status post ultrasound guided left thoracentesis with removal of 700 mL of pleural fluid with decreasing bilateral pleural effusion. 15. Cardiomegaly. 16. Atrial fibrillation with rapid ventricular response and slow ventricular response with long pauses and periods of asystole. 17. Status post permanent pacemaker implant. 18. Left apical pneumothorax, post pacemaker implant. 19. Poor intravenous access. 20. Status post right upper extremity peripherally inserted central catheter line. 21. History of colovesical, colovaginal fistula. 22. Status post loop colostomy. 22. Cardiorenal syndrome. 1. Hypotension with periods and episodic transient hypertension. 2. Hypoxemia. 3. Leukocytosis with granulocytosis. 4. Decreasing hemoglobin and hematocrit with normocytic anemia. 5. Granulocytosis. 6. Acute hypercapneic, hypercarbic respiratory failure. 7. Metabolic acidosis and non-hemolyzed hyperkalemia. 8. Acute renal failure, acute kidney injury and acute tubular necrosis. 9. Cardiorenal syndrome. 10. Transaminitis. 11. Hypoalbuminemia. 12. Hyperprocalcitonemia. 13. Vancomycin-resistant Enterococcus faecium urinary tract infection and funguria and proteinuria, hematuria, pyuria, bacteriuria and funguria. 14. Status post right upper extremity peripherally inserted central catheter line placement. 15. Right internal jugular dialysis catheter placement. 16. Status post ultrasound-guided left thoracentesis, removal of 700 mL of fluid. 17. Acute renal failure, acute kidney injury and chronic kidney disease stage IV. 18. Acute tubular necrosis. 19. Cardiorenal syndrome. 20. Status post hemodialysis. 21. Status post hemodialysis and ultrafiltration. 22. Volume overload and third spacing. 23. Atrial fibrillation with rapid ventricular response and slow ventricular response with long pauses and asystole. 24. Persistent leukocytosis. 25. Status post left upper chest permanent pacemaker implant. 26. Post-pacemaker implant left apical pneumothorax. 27. History of rectovesical, rectovaginal fistula, status post loop colostomy. 28. Questionable left upper lobe healthcare-associated pneumonia. 29. Bilateral pleural effusion. 30. Hypoxemia. 31. History of anxiety, depression, dementia, Parkinson disease. 32. Hyperphosphatemia. 33. Hypovitaminosis D. 1. Acute renal failure, acute kidney injury with nonhemolyzed hyperkalemia and acute tubular necrosis. 2. Status post hemodialysis. 3. Status post right internal jugular [place] and dialysis catheter placement. 4. Status post ultrasound guided left thoracentesis with removal of 700 mL of pleural fluid. 5. Hypertension. 6. Hypoxemia. 7. Acute hypercarbic hypercapnic BiPAP-requiring respiratory failure. 8. Left upper lobe healthcare-associated pneumonia. 9. Bilateral pleural effusion with improvement. 10. Cardiomegaly. 11. Status post left-sided permanent pacemaker implant. 12. Severe deconditioning. 13. Vancomycin-resistant Enterococcus faecium urinary tract infection and funguria. 14. Leukocytosis with granulocytosis. 15. Non-hemolyzed hyperkalemia. 16. Hyperphosphatemia. 17. Transaminitis. 18. Hyperprocalcitoninemia. 19. Vancomycin-resistant Enterococcus faecium urinary tract infection and funguria with proteinuria, hematuria, pyuria, and bacteriuria. 20. Severe deconditioning, gait dysfunction and bedridden status. 21. Possible functional quadriplegia. 22. Encephalopathy. 23. New left upper lobe healthcare-associated pneumonia. 24. Fluid and volume overload. 25. Atrial fibrillation with rapid ventricular response and slow ventricular response with long pauses and periods of asystole. 26. Status post left upper chest permanent pacemaker implant. 27. Oliguric/anuric renal failure with acute tubular necrosis with cardiorenal syndrome. 28. Episodic hypotension. 29. Systemic inflammatory response syndrome with hyperprocalcitoninemia. 30. Non-hemolyzed hyperkalemia. 31. Bilateral lower extremity venous stasis. 32. History of anxiety, depression, dementia, Parkinson's disease. 33. Hyperphosphatemia. 34. Hypovitaminosis D. 1. Worsening acute renal failure with recurrent refractory non-hemolyzed hyperkalemia. 2. Persistent refractory leukocytosis with granulocytosis. 3. Normocytic anemia. 4. Metabolic acidosis with hypercarbia and acute hypercarbic hypercapnic respiratory failure. 5. Underlying chronic kidney disease stage IV. 6. Hyperphosphatemia. 7. Transaminitis. 8. Hypoalbuminemia. 9. Vancomycin-resistant Enterococcus faecium and yeast species questionable urinary tract infection with proteinuria, hematuria, pyuria, bacteriuria, funguria. 10. Status post ultrasound-guided left thoracentesis with drainage of 700 mL of pleural fluid. 11. Left upper lobe patchy new infiltrate. 12. Decreasing bilateral pleural effusion with cardiomegaly. 13. Status post permanent pacemaker implant. 14. Post-pacemaker left apical pneumothorax. 15. Hypercarbic respiratory failure. 16. Status post loop colostomy with removal of the ostomy bridge. 17. Transient hypotension. 18. Acute renal failure, acute kidney injury with underlying chronic kidney disease with acute tubular necrosis with granular casts in the urine. 19. Possible cardiorenal syndrome. 20. Non-gap metabolic acidosis. 21. History of atrial fibrillation with rapid ventricular response and slow ventricular response with periods of asystole and long pauses. 22. Acute hypercapnic respiratory failure secondary to volume overload. 23. Status post left apical pneumothorax. 24. History of rectovesical, rectovaginal fistula. 25. Parkinson's disease. 26. History of dementia, history of atrial fibrillation, history of systolic congestive heart failure. 1. Acute renal failure with worsening and decreasing urine output. 2. Volume overload with anasarca and bilateral pleural effusions. 3. Lethargy. 4. Transient hypotension. 5. History of hypertension. 6. Leukocytosis with granulocytosis. 7. Macrocytic anemia. 8. Hypercarbic and hypercapnic respiratory failure. 9. Non-hemolyzed hyperkalemia. 10. Acute renal failure, acute kidney injury with underlying chronic kidney disease stage IV/V. 11. Hyperphosphatemia. 12. Elevated alkaline phosphatase. 13. Hypoalbuminemia. 14. Vancomycin-resistant Enterococcus faecium urinary tract infection and funguria and gram-positive cocci urinary tract infection. 15. Severe gait dysfunction and bedridden status and severe deconditioning. 16. Functional quadriplegia. 17. Bilateral pleural effusion with bibasilar atelectasis and cardiomegaly. 18. Possible hepatic cirrhosis with perihepatic, perisplenic ascites and extensive anasarca with third spacing and volume overload. 19. Status post colostomy. 20. Bibasilar atelectasis. 21. Status post right upper extremity peripherally inserted central catheter line placement. 22. History of dementia. 23. Left ventricular ejection fraction of 40% with moderately impaired left ventricular systolic function and septal hypokinesis. 24. Moderate to severely sclerotic aortic valve with moderate aortic regurgitation. 25. Severe mitral regurgitation with moderately thickened mitral valve. 26. Moderate pulmonary arterial hypertension. 27. Bilateral pleural effusion, left more than the right. 28. Status post permanent pacemaker. 29. Severe deconditioning. 30. Acute tubular necrosis. 31. History of dementia. 32. History of paroxysmal atrial fibrillation with rapid ventricular response and slow ventricular response with long pauses and periods of asystole. 33. History of dementia, Parkinson disease, anxiety, depression. 34. Status post permanent pacemaker implant. 35. Post permanent pacemaker left apical pneumothorax. 36. Hypothermia. 37. Systemic inflammatory response syndrome. 38. Deconditioning. 39. History of anxiety disorder. 40. Non-hemolyzed hyperkalemia. 41. Hyperphosphatemia. 42. Hypovitaminosis D. 1. Recurrent acute renal failure. 2. Recurrent non-hemolyzed hyperkalemia. 3. Status post right upper extremity peripherally-inserted central catheter line placement for poor intravenous access. 4. Vancomycin-resistant enterococcus urinary tract infection and funguria. 5. Systemic inflammatory response syndrome. 6. Acute renal failure with underlying chronic kidney disease stage III/IV. 7. Acute tubular necrosis. 8. Non-hemolyzed hyperkalemia. 9. Third spacing with volume and fluid overload with bilateral pleural effusion and anasarca. 10. Hypercapnic respiratory failure. 11. Leukocytosis with granulocytosis. 12. Normocytic anemia. 13. Non-hemolyzed hyperkalemia. 14. Hyperphosphatemia. 15. Hypoalbuminemia. 16. Funguria. 17. Vancomycin-resistant Enterococcus faecalis faecium, enterococcus faecium urinary tract infection and funguria with proteinuria, hematuria, pyuria, bacteriuria, and funguria. 18. Bilateral pleural effusion with bibasilar atelectasis and cardiomegaly. 19. Questionable and possible cirrhosis with perihepatic and perisplenic ascites with anasarca and third spacing. 20. Right-sided colostomy. 21. Severe deconditioning, gait dysfunction, bedridden status, and functional quadriplegia. 22. Cerebral cortical atrophy of the brain. 23. Microvascular ischemic disease of the brain. 24. Chronic lacunar infarcts and encephalomalacia. 25. Left ventricular ejection fraction of 40% with moderately impaired left ventricular systolic function and septal hypokinesis. 26. Moderate to severely sclerotic aortic valve and moderate aortic regurgitation. 27. Severe mitral regurgitation with moderately thickened mitral valve. 28. Moderate pulmonary hypertension. 29. Large left pleural effusion. 30. 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 31. Post permanent pacemaker implant, left apical pneumothorax. 1. Acute renal failure with worsening underlying chronic kidney disease. 2. Non-hemolyzed hyperkalemia. 3. Hyperphosphatemia. 4. Hypocalcemia. 5. Transaminitis. 6. Elevated lipase, etiology undetermined. 7. Leukocytosis with granulocytosis and normocytic anemia. 8. Macrocytic anemia. 9. Gram-positive cocci urinary tract infection with proteinuria, microscopic hematuria, pyuria, funguria. 10. Gram-positive cocci urinary tract infection. 11. Bilateral pleural effusion with bibasilar compressive atelectasis. 12. Cardiomegaly. 13. Questionable cirrhosis with irregularities of the hepatic margin and perihepatic and perisplenic ascites and extensive anasarca with third spacing. 14. Right-sided colostomy. 15. Severe gait dysfunction and deconditioning and bedridden status. 16. Possible functional quadriplegia. 17. Left ventricular ejection fraction of 40% with concentric left ventricular hypertrophy. 18. Moderately impaired left ventricular systolic function with left ventricular ejection fraction of 40%. 19. Moderately impaired left ventricular systolic function. 20. Moderate to severe aortic valve sclerosis and moderate aortic regurgitation. 21. Severe mitral regurgitation with moderately thickened mitral valve. 22. Moderate pulmonary arterial hypertension. 23. Septal hypokinesis. 24. Moderate aortic regurgitation. 25. Large pleural effusion. 26. Bilateral upper extremity swelling. 27. Poor intravenous access. 28. Cerebral cortical atrophy of the brain with small vessel ischemic disease of the brain and chronic lacunar infarcts and encephalomalacia. 29. Moderately impaired left ventricular systolic function with elevated BNP and systolic congestive heart failure with elevated BNP of 26,000. 30. Macrocytic anemia. 31. Status post non-hemolyzed hyperkalemia. 32. Gram-positive cocci urinary tract infection. 33. History of dementia, Parkinson disease, history of paroxysmal atrial fibrillation with multiple pauses and periods of asystole. 34. Status post permanent pacemaker implant and status post permanent pacemaker implant, left apical pneumothorax. 35. Systemic inflammatory response syndrome. 36. Volume overload with third spacing. 37. Severely debilitated, deconditioning. 38. hyperkalemia. 39. Systemic inflammatory response syndrome. 40. Status post colostomy. 41. History of rectovaginal, rectovesical fistula. 42. History of anxiety disorder, history of dementia, history of Parkinson disease and hypovitaminosis D. 1. Questionable and possible sepsis versus systemic inflammatory response syndrome with hypothermia. 2. Hypotension. 3. Questionable and possible septic shock. 4. Non-hemolyzed hyperkalemia. 5. Acute renal failure with underlying chronic kidney disease. 6. Possible urinary tract infection with pyuria, bacteriuria, proteinuria, hematuria and funguria. 7. Transaminitis. 8. Malnutrition. 9. History of colovesical, colovaginal fistula. 10. History of recurrent sepsis and recurrent urinary tract infection. 11. History of Parkinson's disease, dementia, history of severe gait dysfunction, history of sick sinus syndrome with tachybrady syndrome, history of atrial fibrillation with rapid ventricular response and slow ventricular response with long pauses and periods of asystole. 12. Status post pacemaker implant. 13. History of severe gait dysfunction. 14. Severe deconditioning. 15. Severe gait dysfunction with possible functional quadriplegia. 16. Hypotension. 17. Hyperkalemia. 18. Severe gait dysfunction. 19. Poor intravenous access. 20. Small vessel ischemic disease of the brain. 21. Cerebral cortical atrophy of the brain. 22. Poor intravenous access. CURRENT MEDICATIONS: 1. Aspirin 81 mg daily. 2. Ativan 0.5 mg twice a day. 3. Bactroban cream to the affected area 3 times a day. 4. Exelon capsule 4.5 mg twice a day. 5. Selenium 200 mcg p.o. daily. 6. Klonopin 4 mg at bedtime, to be held for sedation. 7. PhosLo 667 mg with meals. 8. Protonix 40 mg daily. 9. Requip 8 mg at bedtime. 10. Tenormin 12.5 mg twice a day. 11. Vitamin D3 2000 units daily. 12. Xopenex 0.63 mg nebulizer every 6 hours. 13. The patient is on BiPAP with 14/650% FiO2, rate of 18 continuous. PLAN: According to the patient's , the patient is anticipated to be discharged to [facility] after dialysis today at [place]. The patient and the family are agreeable to that discharge plan. The patient's discharge medications are as per updated ambulatory orders and MAR for today. Time spent in the entire discharge process more than 45 minutes. Dictated and electronically signed, not read. Rigo Vargas MD cc: [id number] TT: 12/11/2016 11:47:29 lg GUEVARA
--- NOTE | 2016-12-11 19:02 | PN ---
DATE: 12/11/2016 Room 562 bed 1. The patient was seen earlier this morning. SUBJECTIVE: The patient is actually more awake today compared to previous days, she was eating her b reakfast, being fed by her and she is relatively eating much better compared to previous days . No fevers overnight noted. OBJECTIVE: VITAL SIGNS: The patient is afebrile, heart rate is 98, respiratory rate is 18. HEAD AND NECK: Normocephalic, atraumatic. No cervical lymphadenopathy. No meningismus present. CHEST: There is a right anterior chest wall hemodialysis catheter, which is intact. The site is ravi an and nontender, no discharge noted. Decreased breath sounds bilaterally. HEART: Showed S1, S2 are normal. ABDOMEN: Soft, nontender, nondistended. There is a colostomy in place, intact stool within it is se misolid and not watery. EXTREMITIES: The patient has a right upper arm PICC line. Site is clean, nontender. There is no di scharge. There is no erythema surrounding it. LABORATORY DATA: Unfortunately, I am unable to review the labs of the patient because the computer s ystems are down. ASSESSMENT: An 81-year-old female who has a rectovaginal, rectovesical fistula. She is status post transverse colostomy, who presented here with acute respiratory failure, probably from acute exacerba tion of congestive heart failure associated with worsening acute renal failure. The patient currentl y is on hemodialysis. The patient also presented did have VRE in the urine, which is probably a colo nizer and the patient does not have any systemic signs of infection, nor local signs of infection. PLAN: We will continue to monitor this patient off the antibiotics while [facility] because she is at risk for nosocomial infections. At the same time, we recommend removing the PI CC line as this is unnecessary if there are no IV medications being given to her, to further decrease the risk of infection. Deuce Krishnamurthy M.D. cc: [id number] TT: 12/11/2016 19:01:38 Confirmation # [id number] Dictation # [id number] william
[2016-12-11] MEDS: Levalbuterol 0.63 MG/3 ML Inhal Soln UD IH SCH (20:22)
[2016-12-11 21:53] VITALS: BP 112/69; PULSE 96; RESP 20; TEMP 97.9; O2SAT 94
[2016-12-12 10:07] LABS: CALCIUM 8.4 mg/dL (8.4-10.5); MAGNESIUM 2.1 mg/dL (1.7-2.2); PHOSPHOROUS 6.7 mg/dL (2.5-4.5); POTASSIUM 5.1 mmol/L (3.6-5.0); TOTAL PROTEIN 6.2 g/dL (5.8-8.3)
[2016-12-12 10:08] LABS: ALB/GLOB RATIO 0.8 (1.1-1.8); BILIRUBIN,TOTAL 0.4 mg/dL (0.2-1.3)
[2016-12-12 12:13] LABS: HEMATOCRIT 33.7 % (36.0-48.0); MEAN CELL VOLUME 99.4 fL (80.0-105.0); MEAN CORPUSCULAR HGB CONC 31.2 g/dl (31.0-37.0); MEAN PLATELET VOLUME 11.5 fl (7.0-11.0); RED CELL DISTRIBUTION WIDTH 17.6 % (11.5-14.5); WHITE BLOOD COUNT 11.2 10^3/ul (4.5-11.0)
== END 2016-12-11 19:09 | DRG 871 ==
LOC: ED 20:01 → ERH 11-29 00:40 → 2RSO 11-29 01:55 → 5RNO 12-01 13:06
PROVIDERS: ADMIT Internal Medicine; ATTEND Internal Medicine
PROC: 02HV33Z Insertion of Infusion Device into Superior Vena Cava, Percutaneous Approach (ICD-10-PCS; 2016-12-01)
PROC: B548ZZA Ultrasonography of Superior Vena Cava, Guidance (ICD-10-PCS; 2016-12-01)
PROC: B518ZZA Fluoroscopy of Superior Vena Cava, Guidance (ICD-10-PCS; 2016-12-01)
PROC: BB4BZZZ Ultrasonography of Pleura (ICD-10-PCS; 2016-12-02)
PROC: 0W9B3ZZ Drainage of Left Pleural Cavity, Percutaneous Approach (ICD-10-PCS; principal; 2016-12-02 16:20)
DX: A41.9 Sepsis, unspecified organism (principal); N17.0 Acute kidney failure with tubular necrosis; J96.21 Acute and chronic respiratory failure with hypoxia; I46.9 Cardiac arrest, cause unspecified; G93.40 Encephalopathy, unspecified; I50.23 Acute on chronic systolic (congestive) heart failure; J18.9 Pneumonia, unspecified organism; E87.2 Acidosis; D62 Acute posthemorrhagic anemia; N18.5 Chronic kidney disease, stage 5; R53.2 Functional quadriplegia; J96.22 Acute and chronic respiratory failure with hypercapnia; E46 Unspecified protein-calorie malnutrition; I13.2 Hypertensive heart and chronic kidney disease with heart failure and with stage 5 chronic kidney disease, or end stage renal disease; N32.1 Vesicointestinal fistula; N82.3 Fistula of vagina to large intestine; J98.11 Atelectasis; N39.0 Urinary tract infection, site not specified; I42.0 Dilated cardiomyopathy; J93.9 Pneumothorax, unspecified; D69.6 Thrombocytopenia, unspecified; I48.0 Paroxysmal atrial fibrillation; R31.29 Other microscopic hematuria; B95.2 Enterococcus as the cause of diseases classified elsewhere; K57.30 Diverticulosis of large intestine without perforation or abscess without bleeding; M40.204 Unspecified kyphosis, thoracic region; M85.80 Other specified disorders of bone density and structure, unspecified site; Y95 Nosocomial condition; Z16.21 Resistance to vancomycin; Z66 Do not resuscitate; Z79.82 Long term (current) use of aspirin; Z79.899 Other long term (current) drug therapy; Z82.3 Family history of stroke; Z82.49 Family history of ischemic heart disease and other diseases of the circulatory system; D53.9 Nutritional anemia, unspecified; E55.9 Vitamin D deficiency, unspecified; E78.5 Hyperlipidemia, unspecified; E83.39 Other disorders of phosphorus metabolism; E83.51 Hypocalcemia; E87.5 Hyperkalemia; F03.90 Unspecified dementia, unspecified severity, without behavioral disturbance, psychotic disturbance, mood disturbance, and anxiety; G20 Parkinson's disease; G93.89 Other specified disorders of brain; I08.3 Combined rheumatic disorders of mitral, aortic and tricuspid valves; I27.2 Other secondary pulmonary hypertension; I49.5 Sick sinus syndrome; I87.8 Other specified disorders of veins; Z85.3 Personal history of malignant neoplasm of breast; Z87.440 Personal history of urinary (tract) infections; Z90.12 Acquired absence of left breast and nipple; Z90.710 Acquired absence of both cervix and uterus; Z93.3 Colostomy status; Z95.0 Presence of cardiac pacemaker; Z99.2 Dependence on renal dialysis